=== PATIENT | male | born 1945 | race Two or more races ===

== ENCOUNTER 2023-04-22 11:48 | Outpatient (OUT) | payer MEDICARE, SELFPAY ==
--- NOTE | 2023-04-22 13:05 | P.CN_ITS ---
Consult Note: HPI Data of Consult Patient: new to practice Consult date: 04/22/23 Requesting Physician: Navdeep Porter MD Primary Care Provider: Obed Quijano MD Consult Narrative Reason for consult: right knee pain Narrative: 77yom who presents for evaluation. worsening right knee pain, has been ongoing for years. needs to have replaced, but is holding off until next summer. has had steroid injections in the past, with good relief >6 weeks. last injection was >3 months ago. continues in course of provider directed home exercises, with minimal relief. uses otc pain meds as needed. denies adverse med side effects. cc:: CC: Navdeep Porter MD Review of Systems ROS Status of ROS 10 or more systems reviewed and unremarkable except as noted in h istory and below Exam Narrative Exam Narrative: Psych-alert and oriented x 3.? Attentive and appropriate, constitutionally normal, displays normal mood and affect per situation.? There are no obvious deficits in memory, reasoning, or intellect. Extremities-lower extremities are warm with minimal edema and palpable pulses. Knee-examination of the right knee reveals tenderness to palpation over the superior, inferior, lateral, and medial aspect of the knee.? Some swelling is noted without erythema. Pain is elicited with flexion and extension of the knee both actively and passively.? Some grinding is noted with these motions.? There is no notable ligamental laxity or instability.? Coordination remains intact.? Gait remains antalgic. Assessment and Plan Assessment and Plan (1) Osteoarthritis of right knee: Plan 77yom who presents for evaluation. failed conservative measures, as noted. imaging consistent with right knee osteoarthritis. given previous relief and current symptoms, prudent to repeat right knee steroid injection. he is in agreement. medications reviewed, no changes. also discussed possible genicular nerve blocks. discussed that this would be a possibility if the steroid injection did not provide significant lasting relief. follow up in 3 months or sooner, if needed. Procedure: Right knee injection Medications: Bupivacaine 0.25% 4cc, kenalog 40mg I explained the details of the procedure to the patient including the risks, benefits and alternatives. We had an informed discussion and the patient verbalized understanding and signed the consent form. All questions were answered appropriately.? A time out was performed.? After obtaining a comfortable seated position, the right knee was prepped with alcohol x3. A syringe containing the above medication was attached to a 25 guage, 1.5 inch needle under strict aseptic technique. The lateral tibial plateau was palpated.? The needle was then advanced through the subcutaneous tissue in a medial and superior direction towards the joint space.? The contents of the syringe were gently injected without any resistance. The needle was removed and pressure was applied to the injection site to decrease the incidence of ecchymosis and hematoma formation.? A sterile bandage was applied.
== END 2023-04-22 11:49 | disposition home or self-care (01) ==
PROVIDERS: PCP Family Medicine; Visit Provider Anesthesiology
DX: M17.11 Unilateral primary osteoarthritis, right knee (principal)
CPT/HCPCS: 20610

== ENCOUNTER 2023-06-27 12:19 | Outpatient (OUT) | payer MEDICARE, SELFPAY ==
--- OUTSIDE RECORDS SUMMARY | 2023-06-27 12:23 | XMS_ITS | CCD ---
Author Name Unknown Address [facility] [facility] [address] [place] [address] Organization [facility] Care Team Providers [employer] Teacher Name Role Phone PHYSICIAN, DEFAULT Unavailable Unavailable PHYSICIAN, DEFAULT Unavailable Unavailable HOY, ROMEL Unavailable Unavailable [place], EHAB A Unavailable Unavailable [place], EHAB A Unavailable Unavailable HOY, ROMEL Unavailable Unavailable HOY, ROMEL Unavailable Unavailable DE Unavailable Unavailable [place], EHAB A Unavailable Unavailable HOTomas ., DR URENA Primary Care Unavailable WENDY WHITMAN Admitting Unavailable WENDY WHITMAN Attending Unavailable ZIEBER, DR DAMIR Thibodeaux Consulting Unavailable WENDY WHITMAN Consulting Unavailable HOTomas ., DR URENA Admitting Unavailable HOY ., DR URENA Attending Unavailable HOY ., DR URENA Primary Care Unavailable HOY ., DR URENA Consulting Unavailable [place], EHAB Attending Unavailable German MARTIN, Navdeep Dodd Attending Unavailable Allergies Allergy Classification Reported Allergen(s) Allergy Type Date of Onset Reaction(s) Facility (1 source) 06264,00; Translations: [66033,00] Propensity to adverse reactions (disorder) 9 [facility] Repository (2 sources) levoFLOXacin; Translations: [LEVOFLOXACIN] Drug Allergy 3 The [facility] Repository Problems Active Problems Problem Classification Problem Date Documented Date Episodic/Chronic Complication of device; implant or graft (1 source) Stenosis of coronary artery stent, initial encounter; Translations: [STENOSIS OF CORONARY ARTERY STENT, INITIAL ENCOUNTER] Onset: 03-05-2018 Coronary atherosclerosis and other heart disease (5 sources) Atherosclerotic heart disease of [place] coronary artery with unstable angina pectoris; Translations: [Old myocardial infarction] Onset: 03-05-2018 Chronic Coronary atherosclerosis and other heart disease (1 source) Presence of coronary angioplasty implant and graft; Translations: [PRESENCE OF CORONARY ANGIOPLASTY IMPLANT AND GRAFT] Onset: 03-05-2018 Episodic Diabetes mellitus without complication (2 sources) Type 2 diabetes mellitus without complications; Translations: [TYPE 2 DIABETES MELLITUS WITHOUT COMPLICATIONS] Onset: 03-05-2018 Chronic Disorders of lipid metabolism (5 sources) Hyperlipidemia, unspecified; Translations: [HYPERLIPIDEMIA, UNSPECIFIED] Onset: 03-05-2018 Chronic Essential hypertension (1 source) Essential (primary) hypertension; Translations: [ESSENTIAL (PRIMARY) HYPERTENSION] Onset: 03-05-2018 Chronic Malaise and fatigue (1 source) Other fatigue; Translations: [OTHER FATIGUE] Onset: 07-09-2022 Episodic Other aftercare (1 source) long-term (current) use of 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/antip latelets; Translations: [DETENTION (CURRENT) USE OF ANTITHROMBOTICS/ANTIP LATELETS] Onset: 03-05-2018 Episodic Other aftercare (1 source) long-term (current) use of aspirin; Translations: [JOINERS SUPERVISOR (CURRENT) USE OF ASPIRIN] Onset: 03-05-2018 Episodic Other aftercare (1 source) Other technician terminal and repeater (current) drug therapy; Translations: [OTH JOINERS SUPERVISOR CURRENT DRUG THERAPY] Onset: 07-09-2022 Episodic Other aftercare (1 source) long-term (current) use of oral hypoglycemic drugs; Translations: [DETENTION (CURRENT) USE OF ORAL HYPOGLYCEMIC DRUGS] Onset: 03-05-2018 Other lower respiratory disease (1 source) Shortness of breath; Translations: [SHORTNESS OF BREATH] Onset: 03-05-2018 Episodic Other screening for suspected conditions (not mental disorders or infectious disease) (2 sources) Encounter for screening for malignant neoplasm of prostate; Translations: [Encounter for screening for malignant neoplasm of colon] Onset: 07-09-2022 Episodic Residual codes; unclassified (1 source) Sleep apnea, unspecified; Translations: [SLEEP APNEA, UNSPECIFIED] Onset: 03-05-2018 Unclassified (2 sources) Unknown / UNK(Unknown) Onset: 03-05-2018 Unclassified (3 sources) LOW BACK PAIN, UNSPECIFIED; Translations: [LOW BACK PAIN, UNSPECIFIED] Onset: 01-15-2022 Past or Other Problems Problem Classification Problem Date Documented Da te Episodic/Chronic Unclassified (1 source) LOW BACK PAIN, UNSPECIFIED; Translations: [LOW BACK PAIN, UNSPECIFIED] Onset: 01-11-2022 Results Test Name Value Interpretation Reference Range Facility Office Visiton 01-07-2023 Follow-up visit [id number] Nabil Stauffer 1945 M Date Provider Department Center 01/07/2023 [place]IA, EHAB BH CARD [facility] No family history on file Level of Service:56542 DE OFFICE/OUTPATIENT ESTABLISHED LOW MDM 20-29 MIN Normal [facility] CBC AUTO DIFFon 07-04-2022 BASO # 0.1 103/ul Normal 0.0-0.1 [facility] Comment on above: Performed By: #### C BC #### [facility] [address] [place] [address] Dr. Cami Bishop Basophils/100 WBC (Bld) 0.9 % Normal 0.2-2.0 [facility] Comment on above: Performed By: #### C BC #### [facility] [address] [place] [address] Dr. Cami Bishop EO # 0.1 103/ul Normal 0.0-0.7 [facility] Comment on above: Performed By: #### C BC #### [facility] [address] [place] [address] Dr. Cami Bishop Eosinophils/100 WBC (Bld) 2.0 % Normal 0.9-7.0 [facility] Comment on above: Performed By: #### C BC #### [facility] [address] [place] [address] Dr. Cami Bishop Erythrocyte distribution width (RBC) [Ratio] 12.2 % Normal 11.0-15.0 [facility] Comment on above: Performed By: #### C BC #### [facility] [address] [place] [address] Dr. Cami Bishop Hematocrit (Bld) [Volume fraction] 45.3 % Normal 42.0-54.0 [facility] Comment on above: Performed By: #### C BC #### [facility] [address] [place] [address] Dr. Cami Bishop Hemoglobin (Bld) [Mass/Vol] 16.0 g/dL Normal 14.0-18.0 [facility] Comment on above: Performed By: #### C BC #### [facility] [address] [place] [address] Dr. Cami Bishop IG # 0.04 10e3/ul Critically high 0.00-0.03 [facility] Comment on above: Performed By: #### C BC #### [facility] [address] [address] [address] Cami Bishop IG % 0.7 % Critically high 0.0-0.5 [facility] Comment on above: Performed By: #### C BC #### [facility] [address] [place] [address] Dr. Cami Bishop LYMPH # 1.6 103/ul Normal 1.2-3.8 [facility] Comment on above: Performed By: #### C BC #### [facility] [address] [place] [address] Dr. Cami Bishop Lymphocytes/100 WBC (Bld) 28.6 % Normal 20.5-60.0 [facility] Comment on above: Performed By: #### C BC #### [facility] [address] [place] [address] Dr. Cami Bishop MANUAL DIFF REQ NO Normal [facility] Comment on above: Performed By: #### C BC #### [facility] [address] [place] [address] Dr. Cami Bishop MCH (RBC) [Entitic mass] 31.2 pg Normal 25.9-34.0 [facility] Comment on above: Performed By: #### C BC #### [facility] [address] [place] [address] Dr. Cami Bishop MCHC (RBC) [Mass/Vol] 35.3 g/dL Critically high 29.9-35.2 [facility] Comment on above: Performed By: #### C BC #### [facility] [address] [place] [address] Dr. Cami Bishop MCV (RBC) [Entitic vol] 88.3 fL Normal 80.0-94.0 [facility] Comment on above: Performed By: #### C BC #### [facility] [address] [place] [address] Dr. Cami Bishop MONO # 0.6 103/ul Normal 0.3-0.8 [facility] Comment on above: Performed By: #### C BC #### [facility] [address] [place] [address] Dr. Cami Bishop Monocytes/100 WBC (Bld) 11.2 % Normal 1.7-12.0 [facility] Comment on above: Performed By: #### C BC #### [facility] [address] [place] [address] Dr. Cami Bishop NEUT # 3.2 103/ul Normal 1.4-6.5 [facility] Comment on above: Performed By: #### C BC #### [facility] [address] [place] [address] Dr. Cami Bishop Neutrophils/100 WBC (Bld) 56.6 % Normal 43.0-75.0 [facility] Comment on above: Performed By: #### C BC #### [facility] [address] [place] [address] Dr. Cami Bishop Platelet mean volume (Bld) [Entitic vol] 9.6 fL Normal 9.5-13.5 [facility] Comment on above: Performed By: #### C BC #### [facility] [address] [place] [address] Dr. Cami Bishop PLT 229 103/ul Normal 150-450 [facility] Comment on above: Performed By: #### C BC #### [facility] [address] [place] [address] Dr. Cami Bishop RBC 5.13 106/ul Normal 4.70-6.10 [facility] Comment on above: Performed By: #### C BC #### [facility] [address] [place] [address] Dr. Cami Bishop WBC 5.6 103/ul Normal 4.0-11.0 [facility] Comment on above: Performed By: #### C BC #### [facility] [address] [address] [address] Cami Bishop FREE T3on 07-04-2022 FREE T3 2.50 pg/mlL Normal 2.18-3.98 [facility] Comment on above: Performed By: #### T SH, LIPID, FT3, T4, CMP #### [facility] [address] [address] [address] Cami Bishop GLYCOHEMOGLOBIN A1Con 2022 ADA RECOMMENDATION SEE BELOW Normal [facility] Comment on above: Result Comment: ADA RECOMMENDED LIMIT 4.0 - 6.0 ADA THERAPEUTIC TARGET < 7.0 ACTION SUGGESTED > 7.0 Performed By: #### A 1C #### [facility] [address] [place] [address] Dr. Cami iBshop Glucose [Mass/Vol] 105 mg/dL Normal [facility] Comment on above: Performed By: #### A 1C #### [facility] [address] [address] [address] Cami Bishop HbA1c (Bld) [Mass fraction] 5.3 % Normal 4.5-6.2 [facility] Comment on above: Performed By: #### A 1C #### [facility] [address] [place] [address] Dr. Cami Bishop LIPID PROFILEon 07-04-2022 CHOL-HDL RATIO NORM SEE BELOW Normal [facility] Comment on above: Result Comment: 3.3 - 4.4 LOW RISK 4.4 - 7.1 AVERAGE RISK 7.1 - 11.0 MODERATE RISK >11.0 HIGH RISK Performed By: #### T SH, LIPID, FT3, T4, CMP #### [facility] [address] [address] [address] Cami Bishop Cholesterol [Mass/Vol] 123 mg/dL Normal <=200 [facility] Comment on above: Performed By: #### T SH, LIPID, FT3, T4, CMP #### [facility] [address] [address] [address] Cami Bishop Cholesterol in HDL [Mass/Vol] 39 mg/dL Critically low 40-60 [facility] Comment on above: Performed By: #### T SH, LIPID, FT3, T4, CMP #### [facility] [address] [place] [address] Dr. Cami Bishop Cholesterol in LDL [Mass/Vol] 55.6 mg/dL Normal [facility] Comment on above: Performed By: #### T SH, LIPID, FT3, T4, CMP #### [facility] [address] [place] [address] Dr. Cami Bishop Cholesterol.total/Ch olesterol in HDL [Mass ratio] 3.2 {ratio} Normal [facility] Comment on above: Performed By: #### T SH, LIPID, FT3, T4, CMP #### [facility] [address] [place] [address] Dr. Cami Bishop HDL NORMAL > or = 60 mg/dl - LO W CARDIOVASCULAR RISK <40 mg/dl - HIGH CARDIOVASCULAR RISK Normal [facility] Comment on above: Performed By: #### T SH, LIPID, FT3, T4, CMP #### [facility] [address] [place] [address] Dr. Cami Bishop LDL CALC NORMAL SEE BELOW Normal [facility] Comment on above: Result Comment: <100 mg/dl OPTIMAL 100 - 129 mg/dl NEAR OR ABOVE OPTIMAL 130 - 159 mg/dl BORDERLINE HIGH 160 - 189 mg/dl HIGH >190 mg/dl VERY HIGH Performed By: #### T SH, LIPID, FT3, T4, CMP #### [facility] [address] [place] [address] Dr. Cami Bishop Triglyceride [Mass/Vol] 142 mg/dL Normal <=150 [facility] Comment on above: Performed By: #### T SH, LIPID, FT3, T4, CMP #### [facility] [address] [place] [address] Dr. Cami Bishop VLDL CALC 28.4 mg/dL Normal [facility] Comment on above: Performed By: #### T SH, LIPID, FT3, T4, CMP #### [facility] [address] [place] [address] Dr. Cami Bishop PROF 14(COMP METB)on 023 Albumin [Mass/Vol] 3.8 g/dL Normal 3.4-5.0 [facility] Comment on above: Performed By: #### T SH, LIPID, FT3, T4, CMP #### [facility] [address] [address] [address] Cami Bishop Albumin/Globulin [Mass ratio] 1.3 {ratio} Normal [facility] Comment on above: Performed By: #### T SH, LIPID, FT3, T4, CMP #### [facility] [address] [address] [address] Cami Bishop ALP [Catalytic activity/Vol] 44 U/L Critically low 46-116 [facility] Comment on above: Performed By: #### T SH, LIPID, FT3, T4, CMP #### [facility] [address] [place] [address] Dr. Cami Bishop ALT [Catalytic activity/Vol] 36 U/L Normal 16-63 [facility] Comment on above: Performed By: #### T SH, LIPID, FT3, T4, CMP #### [facility] [address] [address] [address] Cami Bishop Anion gap [Moles/Vol] 9.3 mmol/L Normal [facility] Comment on above: Performed By: #### T SH, LIPID, FT3, T4, CMP #### [facility] [address] [place] [address] Dr. Cami Bishop AST [Catalytic activity/Vol] 22 U/L Normal 15-37 [facility] Comment on above: Performed By: #### T SH, LIPID, FT3, T4, CMP #### [facility] [address] [address] [address] Cami Bishop Bilirubin [Mass/Vol] 1.4 mg/dL Critically high 0.2-1.0 [facility] Comment on above: Performed By: #### T SH, LIPID, FT3, T4, CMP #### [facility] [address] [place] [address] Dr. Cami Bishop Calcium [Mass/Vol] 8.9 mg/dL Normal 8.5-10.1 [facility] Comment on above: Performed By: #### T SH, LIPID, FT3, T4, CMP #### [facility] [address] [address] [address] Cami Bishop Chloride [Moles/Vol] 98 mmol/L Normal 98-107 [facility] Comment on above: Performed By: #### T SH, LIPID, FT3, T4, CMP #### [facility] [address] [address] [address] Cami Bishop CO2 [Moles/Vol] 32.7 mmol/L Critically high 21.0-32.0 [facility] Comment on above: Performed By: #### T SH, LIPID, FT3, T4, CMP #### [facility] [address] [place] [address] Dr. Cami Bishop Creatinine [Mass/Vol] 0.95 mg/dL Normal 0.70-1.30 [facility] Comment on above: Performed By: #### T SH, LIPID, FT3, T4, CMP #### [facility] [address] [place] [address] Dr. Cami Bishop EGFR-AF ESTONIAN >60 Normal >=60 [facility] Comment on above: Performed By: #### T SH, LIPID, FT3, T4, CMP #### [facility] [address] [place] [address] Dr. Cami Bishop EGFR-NON AF ESTONIAN >60 Normal >=60 [facility] Comment on above: Performed By: #### T SH, LIPID, FT3, T4, CMP #### [facility] [address] [address] [address] Cami Bishop Globulin (S) [Mass/Vol] 2.9 g/dL Normal [facility] Comment on above: Performed By: #### T SH, LIPID, FT3, T4, CMP #### [facility] [address] [address] [address] Cami Bishop Glucose [Mass/Vol] 102 mg/dL Normal 74-106 [facility] Comment on above: Performed By: #### T SH, LIPID, FT3, T4, CMP #### [facility] [address] [place] [address] Dr. Cami Bishop Potassium [Moles/Vol] 4.0 mmol/L Normal 3.5-5.1 [facility] Comment on above: Performed By: #### T SH, LIPID, FT3, T4, CMP #### [facility] [address] [place] [address] Dr. Cami Bishop Protein [Mass/Vol] 6.7 g/dL Normal 6.4-8.2 [facility] Comment on above: Performed By: #### T SH, LIPID, FT3, T4, CMP #### [facility] [address] [place] [address] Dr. Cami Bishop Sodium [Moles/Vol] 136 mmol/L Normal 136-145 [facility] Comment on above: Performed By: #### T SH, LIPID, FT3, T4, CMP #### [facility] [address] [place] [address] Dr. Cami Bishop Urea nitrogen [Mass/Vol] 14.0 mg/dL Normal 7.0-18.0 [facility] Comment on above: Performed By: #### T SH, LIPID, FT3, T4, CMP #### [facility] [address] [place] [address] Dr. Cami Bishop Urea nitrogen/Creatinine [Mass ratio] 14.7 mg/mg Normal [facility] Comment on above: Performed By: #### T SH, LIPID, FT3, T4, CMP #### [facility] [address] [place] [address] Dr. Cami Bishop T4on 07-04-2022 T4 [Mass/Vol] 6.80 ug/dL Normal 4.50-12.10 [facility] Comment on above: Performed By: #### T SH, LIPID, FT3, T4, CMP #### [facility] [address] [place] [address] Dr. Cami Bishop TSHon 07-04-2022 TSH 2.193 uIU/mL Normal 0.358-3.740 [facility] Comment on above: Performed By: #### T SH, LIPID, FT3, T4, CMP #### [facility] [address] [place] [address] Dr. Cami Bishop VITAMIN D 25 OHon 07-04-2022 VIT D 25-OH 35.1 ng/mL Normal [facility] Comment on above: Performed By: #### V ROSELINE, PSASC #### [facility] [address] [place] [address] Dr. Cami Bishop VIT D RANGES SEE BELOW Normal [facility] Comment on above: Result Comment: <20 ng/mL Vit D deficient 20 - <30 ng/mL Vit D insufficient 30 - 100 ng/mL Vit D sufficient >100 ng/mL Potential Toxicity Performed By: #### V ROSELINE, PSASC #### [facility] [address] [place] [address] Dr. Cami Bishop ER URINE PROFILEon 2 Bilirubin Ql (U) Negative Normal NEGATIVE [facility] Comment on above: Performed By: #### T SH, LIPID, FT3, T4, CMP #### [facility] [address] [place] [address] Dr. Cami Bishop Clarity (U) CLEAR Normal CLEAR [facility] Comment on above: Performed By: #### T SH, LIPID, FT3, T4, CMP #### [facility] [address] [place] [address] Dr. Cami Bishop Color (U) YELLOW Normal YELLOW [facility] Comment on above: Performed By: #### T SH, LIPID, FT3, T4, CMP #### [facility] [address] [place] [address] Dr. Cami Bishop ERUAHD A micrscopic examination will be performed if indicated. Normal [facility] Comment on above: Performed By: #### T SH, LIPID, FT3, T4, CMP #### [facility] [address] [place] [address] Dr. Cami Bishop Glucose Ql (U) Negative Normal NEGATIVE [facility] Comment on above: Performed By: #### T SH, LIPID, FT3, T4, CMP #### [facility] [address] [address] [address] Cami Bishop Hemoglobin Ql (U) Negative Normal NEGATIVE [facility] Comment on above: Performed By: #### T SH, LIPID, FT3, T4, CMP #### [facility] [address] [address] [address] Cami Bishop Ketones Ql (U) Negative Normal NEGATIVE [facility] Comment on above: Performed By: #### T SH, LIPID, FT3, T4, CMP #### [facility] [address] [address] [address] Cami Bishop LEUKOCYTES Negative Normal NEGATIVE [facility] Comment on above: Performed By: #### T SH, LIPID, FT3, T4, CMP #### [facility] [address] [address] [address] Cami Bishop Nitrite Ql (U) Negative Normal NEGATIVE [facility] Comment on above: Performed By: #### T SH, LIPID, FT3, T4, CMP #### [facility] [address] [address] [address] Cami Bishop pH (U) 6.0 [pH] Normal 5-9 [facility] Comment on above: Performed By: #### T SH, LIPID, FT3, T4, CMP #### [facility] [address] [address] [address] Cami Bishop SPEC GRAVITY 1.020 Normal 1.005-<=1.025 [facility] Comment on above: Performed By: #### T SH, LIPID, FT3, T4, CMP #### [facility] [address] [address] [address] Cami Bishop UA PROTEIN Negative Normal NEGATIVE/ TRACE [facility] Comment on above: Performed By: #### T SH, LIPID, FT3, T4, CMP #### [facility] [address] [address] [address] Cami Bishop UR MICRO IND NOT INDICATED Normal [facility] Comment on above: Performed By: #### T SH, LIPID, FT3, T4, CMP #### [facility] [address] [place], [place] [address] Dr. Cami Bishop Urobilinogen Qn (U) 1.0 {Dia'U}/dL Normal 0.2 - 1. 0 [facility] Comment on above: Performed By: #### T SH, LIPID, FT3, T4, CMP #### [facility] [address] [place], [place] [address] Dr. Cami Bishop XR LSPINE 2_3 VIEWSon 2021 XR LSPINE 2_3 VIEWS EXAMINATION: XR LSPI NE 2_3 VIEWS HISTORY: Pain ; acute lumbar pain; no known injury COMPARISON: No relevant comparison available. FINDINGS: BONES: Mild degenerative facet arthropathy L4-L5, L5-S1. No fracture or spondylolisthesis. DISC SPACES: Mild narrowing L4-L5, L5-S1. PARASPINOUS: Negative. No paraspinous abnormality is seen. OTHER: Negative. IMPRESSION: 1. No appreciable acute abnormality. 2. Mild degenerative disc disease and facet arthropathy of the lower lumbar spine. Electronically authenticated by: DAMIR MACHADO Date: 2022-01-11 13:56 Normal [facility] Consent for COVID Vaccineon 08-06-2020 SARS-CoV-2 (COVID-19) RNA LIN+probe Ql (Unsp spec) [id number]. 00CD:127 Normal [facility] [place] Consent for COVID Vaccineon 07-01-2020 SARS-CoV-2 (COVID-19) RNA LIN+probe Ql (Unsp spec) [id number]. 00CD:127 Normal [facility] [place] Consent for Treatmenton 06-20 Consent for Treatment [id number]. 00CD:127 Normal [facility] [place] Coding Summary.on 06-29-2020 Coding Summary. CODING DATE: 06/29/2020 FINAL [facility] STATUS: PAYOR: Medicare APC DESCRIPTION [employer] - Level 1B ($11-$20) ADMIT DX: REASON FOR VISIT DX: Z23 Encounter for immunization FINAL DX: PRINCIPAL: Z23 Encounter for immunization SECONDARY: PYMT PROC APC STAT DESCRIPTION DOCTOR NAME DATE NOTE: The code number assigned matches the documented diagnosis and / or procedure in the patient's chart. However, the narrative phrase printed from the coding software may appear abbreviated, or result in slightly different terminology. Coded By: Myriam Manuel CphT Date Saved: 06/29/2020 11:45 am Normal [facility] [place] Ambulatory Clinical Summaryo n 01-26-2020 Ambulatory Clinical Summary {[id number] Normal [facility] [place] Ambulatory Clinical Summaryo n 12-16-2019 Ambulatory Clinical Summary {[id number]}CD:[id number] Normal [facility] [place] General Surgery Office/Clini c Noteon 12-16-2019 General Surgery Office/Clinic Note Chief Complaint post operative follow up HPI Staff 14 day post operative follow up post excisional biopsy from left occipital scalp completed at [facility] on 12/03. Denies pain; no use of pain medication. Minimal tenderness if area is brushed. Denies drainage/bleeding. History of Present Illness 2 weeks s/p excision of lipoma left occipital scalp, doing well; some itching, no pain or drainage; pathology consistent with lipoma. Review of Systems ROS - Provider Constitutional: no fever, no sweats, no weight loss. Eyes: no glasses, no blurred vision, no visual loss. ENMT: no dentures, no hoarseness, no swallowing difficulties, no hearing loss, no ear infection(s), no nose bleeds. Cardiovascular: normal blood pressure, no chest pain, regular heartbeat, no heart murmur. Respiratory: no shortness of breath, no cough, no asthma, no wheezing. Gastrointestinal: no nausea, no vomiting, no diarrhea, no constipation, no blood in stool, no change in bowel habits, no abdominal pain, no hepatitis. Genitourinary: no kidney stones, no urine infection, no dysuria. Musculoskeletal: no pain, no weakness. Skin: no changing moles, no rash, yes skin lumps. Neurologic: no seizures, no epilepsy, no headache. Psychiatric: no emotional or psychiatric problem. Heme/Lymph: no bleeding problems, no anemia, no blood clots, no transfusions. Allergy/Immunologic: no swollen lymph nodes/glands, no IV drug abuse. Other: Additional ROS info: Except as noted in the above Review of Systems and in the History of Present Illness, all other systems have been reviewed and are negative or noncontributory. Physical Exam Vitals & Measurements T: 36.7 ?C (Tympanic) skin: incision healing well, minimal irritation around sutures and swelling; no drainage. Assessment/Plan 1. Lipoma of scalp (D17.0: Benign lipomatous neoplasm of skin and subcutaneous tissue of head, face and neck) sutures removed, follow up as needed; call with problems/questions. 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 Medications amLODIPine 5 mg Tab, 5 mg= 1 tab(s), Oral, Daily aspirin 81 mg Chew Tab, 81 mg= 1 tab(s), Chewed, Daily Cialis, 20 mg, Oral, Daily Fish Oil, 1000 mg, Oral, Daily hydrochlorothiazide 12.5 mg Cap, 12.5 mg= 1 cap(s), Oral, Daily lisinopril 40 mg Tab, 40 mg= 1 tab(s), Oral, Daily metformin 500 mg oral tablet, 500 mg= 1 tab(s), Oral, BID Metoprolol tartrate 25 mg Tab, 25 mg= 1 tab(s), Oral, BID Multiple Vitamins Tab, 1 tab(s), Oral, Daily niacin, 50 mg, Oral, Daily Plavix 75 mg Tab, 75 mg= 1 tab(s), Oral, Daily simvastatin 40 mg Tab, 40 mg= 1 tab(s), Oral, Once a day (at bedtime) Allergies No Known Allergies Social History Alcohol - Low Risk, 05/10/2013 Current, Wine, 3-5 times per week, 11/10/2019 Current, Beer, Wine, Liquor, 1-2 times per month, 05/10/2013 Substance Abuse - Denies Substance Abuse, 10/26/2014 Tobacco - Denies Tobacco Use, 05/10/2013 Never (less than 100 in lifetime) Tobacco Use:., 12/16/2019 Family History Acute myocardial infarction: Mother. Diabetes mellitus type 2: Mother. Heart failure: Father. Immunizations Vaccine Date Status diphtheria/pertussis, acel/tetanus adult 10/26/2014 Given Normal [facility] Comment on above: Result Comment: Elec tronically Signed By: CRISTINA MARTIN, Joseph Ledesma\Date and Time Signed: 12/16/19 13:32 EDT Operative Reporton 0 Operative Report [id number]#1.0 0CD:127 [facility] Pathology Noteon 12-08-2019 Pathology Note [id number]#1.0 0CD:127 [facility] Facesheeton 11-13-2019 Facesheet [id number] 0CD:127 [facility] Physician Referralon 020 Physician Referral [id number] CD:127 [facility] Cardiovascular Lab Reporton 03-06-2018 Cardiovascular Lab Report [facility] Patient Name: Eh [facility] García MR #: [id number] of Physician: Sheryl Stratton M.D.Division of Service Date: 03/05/2018Cardiology Birthdate: [birth year]Adult Cardiovascular Room #: 3CD [id number] [facility] [place], [place] [address]Zmueo Fax Cardiovascular Laboratory ReportFINAL IMPRESSIONS:1. Severe stenosis of the left anterior descending coronary artery, successfully treated by balloon angioplasty and Synergy drug-eluting stent placement.2. Severe stenosis of the posterior descending artery, successfully treated by balloon angioplasty and Synergy drug-eluting stent placement.3. Moderate angiographic, non-hemodynamically significant stenosis of the right coronary artery as assessed by instantaneous wave-free ratio (iFR).4. Spes-mw-wauldydf in-stent restenosis of the mid left anterior descending and circumflex coronary arteries.5. Severe disease of a small caliber first obtuse marginal branch.6. Mildly elevated right-sided heart pressures and wedge pressures.7. Normal cardiac output/cardiac index.RECOMMENDATIONS/ PLAN:1. Aspirin 81 mg lifelong.2. Plavix 75 mg daily for a minimum of 6 months.3. Optimization of medical management; a beta-yazmin, high-intensity statin and an angiotensin-converting enzyme inhibitor are indicated.4. Outpatient phase to cardiac rehabilitation.5. Follow up with me in the [facility] in the next 2 to 4 weeks.6. Follow up with Dr. Quijano as scheduled.PROCEDURES: Ultrasound-guided access to the right internal jugular vein,right heart catheterization, ultrasound-guided access to the left radialartery, bilateral selective coronary angiography, percutaneous balloonangioplasty, and Synergy drug-eluting stent placement in the left anteriordescending coronary artery, percutaneous balloon angioplasty, anddrug-eluting stent placement in the posterior descending branch of theright coronary artery, instantaneous fractional ratio of the right coronaryartery.METHODS : After risks, benefits, and alternatives were explained, writteninformed consent was obtained. The patient was prepped and draped in usualsterile fashion over the right neck and left wrist. Using 1% lidocainesolution, local infiltration, anesthesia was achieved over the right neck.Using a modified Seldinger technique and after local infiltration ofanesthesia, access to the right internal jugular vein was obtainedutilizing the micropuncture kit under ultrasound guidance. A #6-FrenchGlidesheath was inserted without difficulty.Right heart catheterization was performed using a Alexander catheter via thevenous sheath. Pressures were measured in the right atrium, rightventricle, pulmonary artery, and pulmonary capillary wedge positions.Oxygen saturations were obtained and cardiac output/cardiac index wascalculated using the Drew principle. After reviewing the data, it waselected to conclude this portion of the procedure. The Alexander catheter wasremoved. The jugular sheath was removed with application of pressurebandage per protocol to achieve optimal hemostasis.Subsequentl y, coronary angiography was performed via a left radialapproach; local infiltration anesthesia was achieved over the left radialartery. A micropuncture kit was used to access the left radial arteryunder ultrasound guidance. A 6-[place] Glidesheath was inserted withoutdifficulty. Coronary angiography was performed using JR4 and HW1wdcdunash. After reviewing the images, it was elected to proceed with aninterventional procedure.A 6-[place] XB3.5 guide catheter was advanced over J-wire and coaxiallyengaged into the left main coronary ostium. The [place] pressure wire wasadvanced through the catheter with pressures normalized just distal to theexiting. The wire was used to traverse the suspect stenosis in the leftanterior descending. At this juncture, malfunction of the functional flowwire was noted; it was elected to proceed with intervention given theangiographic severity of the stenosis. Balloon angioplasty was performedusing a 2.0 x 8-mm noncompliant balloon. An inadequate result was treatedusing a 2.5 x 16-mm Synergy drug-eluting stent. Postdilation was performedusing a 3.0 x 12-mm noncompliant balloon. Repeat imaging showed an optimalresult. The wire was removed. Final images showed CELSO-3 flow with nodissection, thrombus, or distal wire trauma. The XB guide catheter wasremoved.A 6-[place] JR4 guide catheter was advanced over the J-wire and coaxiallyengaged into the right coronary ostium. A new [place] pressure wire wasadvanced through the catheter with pressures normalized just after exiting.The wire was used to traverse the suspect stenoses. An instantaneouswave-free ratio (iFR) was performed as well as a manual pullback iFR. Thisidentified a significant step-up just proximal to the posterior descendingartery. The wire was readvanced across the posterior descending stenosis.Balloon angioplasty was performed using a 2.0 x 8-mm balloon. Aninadequate result was treated using a 2.5 x 12-mm Synergy stent withpostdilation using a 3.0 x 8-mm noncompliant balloon. The wire wassubsequently retracted just distal to the stenosis at the crux. An iFR wasremeasured. The wire was removed. Final angiography showed CELSO-3 flowwith no dissection, thrombus, or distal wire trauma.At this point, it was elected to conclude the procedure.All catheters were removed. The radial sheath was removed with applicationof pressure bandage per protocol to achieve optimal hemostasis. Overall,the patient tolerated the procedure well. There were no overtcomplications. He was to be transferred to the holding area in stablecondition.FINDIN GS:Hemodynamics:RA 13.RV 36/9, 15.PA 36/13 (25).PCWP 15.TPG 10.AO 107/63.Cardiac output 6.11/cardiac index 2.42.LEFT VENTRICULOGRAPHY: This was not performed.CORONARY ARTERIES: Left main coronary artery. This arises from the leftcoronary cusp. It bifurcates into the left anterior descending and leftcircumflex coronary artery. It is free of significant stenosis.Left anterior descending coronary artery. This shows a previously placedbare-metal stent in the proximal to midportion of the vessel with 40%in-stent restenosis. Distal to a small adjacent diagonal, muyysz-mn-eeosjq left anterior descending shows a short segment 80% stenosis.This was reduced to 0% by balloon angioplasty and placement of a 2.5 x16-mm Synergy stent with postdilation as described above. Final imagesshowed CELSO-3 flow with no dissection, thrombus, or distal wire trauma.Left circumflex coronary artery. This shows a 30% in-stent restenosis inthe midportion of the vessel. A small first obtuse marginal shows an 80%ostial stenosis.Right coronary artery. This is a dominant vessel giving rise to theposterior descending and posterolateral branches. There was a 30% calcificstenosis in the proximal to midportion of the vessel. The crux shows a 50%to 60% bifurcation stenosis involving the distal right coronary and at theostium of the posterior descending as well as adjacent posterolateralbranch, this was left untreated. Instantaneous fractional ratio is 0.94across this stenosis after revascularization of the posterior descendingartery. The posterior descending shows an 80% mid-vessel stenosis atbaseline. This was reduced to 0% by balloon angioplasty and placement of a2.5 x 12-mm Synergy stent with postdilation as described above. Finalimages showed CELSO-3 flow with no dissection, thrombus, or distal wiretrauma.INDICATIONS : Unstable angina.Electronically Signed by:Moraima Ruelas M.D. 03/12/2018 03:07 P Moraima Ruelas M.D.Date Dict: 03/05/2018/01:31 P/Moraima Ruelas M.D.Date Trans: 03/06/2018 12:18 P/[id number]: Romel Quijano M.D. [place] [id number] [facility] [address] [facility] Encounters Encounter Date Encounter Type Care Provider Facility Start: 04-22-2023 End: 04-23-2023 ambulatory Navdeep Porter MD Facility: [facility] Start: 01-07-2023 End: 01-07-2023 ambulatory MORAIMA RUELAS [facility] Start: 07-04-2022 End: 07-05-[address] ROMEL QUIJANO . Facility: Start: 01-11-2022 End: 01-11-[address] ROMEL QUIJANO . Facility: Start: 04-07-2018 End: 04-08-2018 Patient encounter procedure DEFAULT PHYSICIAN Facility:[facility] Start: 03-05-2018 End: 03-06-2018 Patient encounter procedure MORAIMA RUELAS Facility:[facility] Procedures Date Procedure Procedure Detail Performing Clinician Start: 07-04-[address] DESIRAE QUIJANO . Comment on above: Performed By: #### V ITAD, PSASC #### [facility] [address] [place] [address] Dr. Cami Bishop Start: 03-05-2018 R HRT CORONARY ARTERY ANGIO MORAIMA RUELAS Payers Date Payer Category Payer Medicare 1958 Private Health Insurance [id number] 1945 Unknown [id number] [id number] 1945 Unknown [id number] 2.16.8 [id number] 1945 Unknown [id number] 2.16.84 [id number] 1945 Unknown [id number] 2.16.84 [id number] 1945 Unknown [id number] [id number]. [id number] Unknown Progress note 01-07-2023 Note Date & Type Note Facility 01-07-2023 Note [facility] Cardiology Clinic Note Chief Complaint: Patient here for 1 year follow up CAD, NSVT, hypertension, and hyperlipidemia. Denies chest pain and LE edema. VO remains unchanged. No recent testing. HPI: Nabil Stauffer is a 77 y.o. male With history of coronary artery disease, prior PCI/stent placement here in routine follow-up Has been doing relatively well from a heart standpoint. Continues to have exertional shortness of breath no worse than usual. Unfortunately, has been under tremendous stress. His is critically ill and in the intensive care unit in [facility]. She had a bowel perforation with peritonitis. She required surgery. She is being placed on dialysis today. Cardiology ROS: Review of Systems Cardiovascular: Positive for dyspnea on exertion. Musculoskeletal: Positive for arthritis and joint pain. All other systems reviewed and are negative. Past Medical History He has a past medical history of Hyperlipidemia, Hypertension, Myocardial infarction (CMS/HCC), and Sleep apnea. Surgical History He has no past surgical history on file. Social History He has no history on file for tobacco use, alcohol use, and drug use. Family History No family history on file. Allergies Levofloxacin Medications Current Outpatient Medications: amLODIPine (Norvasc) 2.5 mg tablet, Take 1 tablet (2.5 mg) by mouth in the morning and at bedtime., Disp: 180 tablet, Rfl: 3 aspirin 81 mg chewable tablet, Chew 1 tablet every day by oral route., Disp: , Rfl: clopidogrel (Plavix) 75 mg tablet, Take 1 tablet (75 mg) by mouth in the morning., Disp: 90 tablet, Rfl: 3 hydroCHLOROthiazide (Microzide) 12.5 mg capsule, Take 12.5 mg by mouth in the morning., Disp: , Rfl: lisinopril 40 mg tablet, Take 1 tablet by mouth in the morning., Disp: , Rfl: metFORMIN (Glucophage) 500 mg tablet, Take 500 mg by mouth in the morning and at bedtime., Disp: , Rfl: metoprolol tartrate (Lopressor) 25 mg tablet, Take 1 tablet by mouth in the morning and at bedtime., Disp: , Rfl: simvastatin (Zocor) 40 mg tablet, Take 1 tablet by mouth in the morning., Disp: , Rfl: Last Recorded Vitals BP 128/82 (BP Location: Left arm, Patient Position: Sitting) Pulse 83 Ht 1.803 m (5' 11 ) Wt 134 kg (295 lb) SpO2 97% BMI 41.14 kg/m??? Physical Examination: GENERAL: alert and oriented x3, well developed, in no acute distress. HEAD: atraumatic, normocephalic. EYES: BEVERLY, EOMI. NECK: trachea midline, no JVD present, no carotid bruits present. CARDIAC: S1, S2 present. RRR. No murmur, rubs, or gallops. RESPIRATORY: CTAB, no increased effort of breathing, no rales, rhonchi, or wheezing. ABDOMEN: soft, nontender, nondistended. EXTREMITIES: no lower extremity edema, peripheral pulses are 2+ bilaterally. No rash/skin discoloration present. NEURO: strength/sensation equal and symmetric in bilateral upper and lower extremities. PSYCH: appropriate mood, affect, and judgement. Investigations: Physician: Moraima Ruelas, Cardiovascular Laboratory Report FINAL IMPRESSIONS: 1. Severe stenosis of the left anterior descending coronary artery, successfully treated by balloon angioplasty and Synergy drug-eluting stent placement. 2. Severe stenosis of the posterior descending artery, successfully treated by balloon angioplasty and Synergy drug-eluting stent placement. 3. Moderate angiographic, non-hemodynamically significant stenosis of the right coronary artery as assessed by instantaneous wave-free ratio (iFR). 4. Lndd-ba-rfphflde in-stent restenosis of the mid left anterior descending and circumflex coronary arteries. 5. Severe disease of a small caliber first obtuse marginal branch. 6. Mildly elevated right-sided heart pressures and wedge pressures. 7. Normal cardiac output/cardiac index. RECOMMENDATIONS/PLAN: 1. Aspirin 81 mg lifelong. 2. Plavix 75 mg daily for a minimum of 6 months. 3. Optimization of medical management; a beta-yazmin, high-intensity statin and an angiotensin-converting enzyme inhibitor are indicated. 4. Outpatient phase to cardiac rehabilitation. 5. Follow up with me in the [facility] in the next 2 to 4 weeks. 6. Follow up with Dr. Quijano as scheduled. PROCEDURES: Ultrasound-guided access to the right internal jugular vein, right heart catheterization, ultrasound-guided access to the left radial artery, bilateral selective coronary angiography, percutaneous balloon angioplasty, and Synergy drug-eluting stent placement in the left anterior descending coronary artery, percutaneous balloon angioplasty, and drug-eluting stent placement in the posterior descending branch of the right coronary artery, instantaneous fractional ratio of the right coronary artery. Lexiscan stress test 09/05/2020: Impression: 1. No ischemic EKG changes seen on Lexiscan infusion 2. Ventricular ectopy seen. 3. Nuclear images are to be read, interpreted and reported i (more content not included)... [facility] Summary Purpose Family History No Family History Records FoundNo Family History Records FoundNo Family History Records FoundNo Family History Records FoundNo Family History Records Found Advance Directives No Advanced Directives Records FoundNo Advanced Directives Records FoundNo Advanced Directives Records FoundNo Advanced Directives Records FoundNo Advanced Directives Records Found Additional Source Comments (unrecognized sect ion and content) No Status Records FoundNo Status Records FoundNo Status Records FoundNo Status Records FoundNo Status Records Found INFORMATION SOURCE (unrecogn ized section and content) DATE CREATED AUTHOR 04/28/2018 [facility] DATE CREATED AUTHOR AUTHOR'S ORGANIZ ATION 10/26/[address] [facility] DATE CREATED AUTHOR AUTHOR'S ORGANIZ ATION 07/09/2022 [facility] DATE CREATED AUTHOR AUTHOR'S ORGANIZ ATION 01/07/2023 [facility] DATE CREATED AUTHOR AUTHOR'S ORGANIZ ATION 05/03/2023 [facility] FOR RECORDS PERTAINING TO PATIENTS WHO ARE OR HAVE BEEN ENROLLED IN A CHEMICAL DEPENDENCY/SUBSTANCEABUSE PROGRAM, SOME INFORMATION MAY BE OMITTED. This clinical summary was aggregated from multiple sources. Caution should be exercised in using it in the provision of clinical care. This summary normalizes information from multiple sources, and as a consequence, information in this document may materially change the coding, format and clinical context of patient data. In addition, data may be omitted in some cases. CLINICAL DECISIONS SHOULD BE BASED ON THE PRIMARY CLINICAL RECORDS. [employer] [facility]. provides no warranty or guarantee of the accuracy or completeness of information in this document.
--- NOTE | 2023-06-27 12:47 | P.CN_ITS ---
Consult Note: HPI Data of Consult Patient: known to practice within the last 3 years Consult date: 04/22/23 Requesting Physician: Baylee Higgins NP Primary Care Provider: Obed Quijano MD Consult Narrative Reason for consult: right knee pain Narrative: 77yom who presents for evaluation. worsening right knee pain, has been ongoing for years. needs to have replaced, but is holding off until next summer. has had steroid injections in the past, with good relief >6 weeks. continues in course of provider directed home exercises, with minimal relief. uses otc pain meds as needed. denies adverse med side effects. Patient found mild short term benefit from last injnection with Dr Porter but was only beneficial for 1 month. Patient would like to discuss genicular nerve block working towards thermal RFA. cc:: CC: Baylee Higgins NP Review of Systems ROS Status of ROS 10 or more systems reviewed and unremark able except as noted in history and below Musculoskeletal Reports: joint pain Meds Home Medications and Allergies Home Medications Medication Instructions Recorded Confirmed Type amlodipine 5 mg tablet 5 mg PO BID 04/30/23 04/30/23 History aspirin 81 mg tablet,delayed 81 mg PO DAILY 04/30/23 04/30/23 History release (Adult Low Dose Aspirin) clopidogrel 75 mg tablet (Plavix) 75 mg PO DAILY 04/30/23 04/30/23 History hydrochlorothiazide 12.5 mg tablet 12.5 mg PO DAILY 04/30/23 04/30/23 History lisinopril 40 mg tablet 40 mg PO DAILY 04/30/23 04/30/23 History metformin 500 mg tablet 500 mg PO BID 04/30/23 04/30/23 History metoprolol succinate 25 mg 12.5 mg PO BID 04/30/23 04/30/23 History tablet,extended release 24 hr multivitamin 1 tab PO DAILY 04/30/23 04/30/23 History niacin 50 mg tablet 50 mg PO DAILY 04/30/23 04/30/23 History omega-3 fatty acids 500 mg capsule 1,500 mg PO DAILY 04/30/23 04/30/23 History simvastatin 40 mg tablet 40 mg PO DAILY 04/30/23 04/30/23 History Allergies Allergy/AdvReac Type Severity Reaction Status Date / Time levofloxacin Allergy Unknown Verified 04/30/23 10:54 Exam Narrative Exam Narrative: Psych-alert and oriented x 3.? Attentive and appropriate, constitutionally normal, displays normal mood and affect per situation.? There are no obvious deficits in memory, reasoning, or intellect. Extremities-lower extremities are warm with minimal edema and palpable pulses. Knee-examination of the right knee reveals tenderness to palpation over the superior, inferior, lateral, and medial aspect of the knee.? Some swelling is noted without erythema. Pain is elicited with flexion and extension of the knee both actively and passively.? Some grinding is noted with these motions.? There is no notable ligamental laxity or instability.? Coordination remains intact.? Gait remains antalgic. Constitutional Documenting provider has reviewed patient's vital signs: yes Common normals: no apparent distress, oriented x3, healthy appearing, alert and well nourished General appearance: cooperative HENMT Common normals: normocephalic, hearing grossly normal bilaterally and moist oral mucous membranes Head and scalp: normocephalic Eye Common normals: PERRL Pupil: PERRL Neck & C-Spine Common normals: full ROM General: normal visual inspection Chest Common normals: inspection of chest normal Respiratory Common normals: normal respiratory effort, no retractions and no use of accessory muscles Neuro Common normals: oriented x3, CN's II-XII intact bilaterally, moves all extremities, no focal motor deficits, no sensory deficits noted and deep tendon reflexes 2+ bilaterally Sensorium/orientation: alert Motor exam: strength 5/5 throughout and no movement abnormalities noted Psych Common normals: mental status grossly normal, thought process normal, cooperative, affect normal, speech normal and activity/motor behavior normal Speech: normal speech Thought process: normal thought process Results Additional Findings Additional findings: I have checked an [place] report on this patient today and there are no aberrancies noted in the prescribing history.?? A drug screen was completed and reviewed within the last year, and if there has not been a drug screen completed we ordered one today to monitor higher risk, state monitored pain medication use. As part of providing excellent, safe, comprehensive care, the following was completed at our patient's visit: 1. A medication reconciliation and review to ensure accurate knowledge of current/active medications, including asking our patients to inform us about any [id number] medications or herbal remedies/nutritional supplements/alternative remedies. 2. A review to specifically ensure our patients have had annual screening for: elevated body mass index (BMI), tobacco use, screening for depression, and screening for unhealthy alcohol use. When screening is concerning, patients are provided with education and the specific recommendation to discuss the concerning health issue and treatment options with their primary care provider. Assessment and Plan Assessment and Plan (1) Osteoarthritis of right knee: Assessment and Plan: We discussed the risks and benefits of the procedure with the patient, and we are NOT planning on using sedation as outlined in the guidelines from Medicare unless there is a documented reason that sedation would be strongly recommended.?? ?The procedure will be completed with fluoroscopic guidance.? (2) Chronic pain of right knee: Plan severe OA of right knee, patients doctor has requesting patient lose weight prior to surgery and patient does not think he can schedule a surgery at this time or tolerate the recovery proceed with right genicular nerve block under fluoroscopy with Dr Porter working towards thermal RFA continue HEP as tolerated continue current medications f/u 1 week after procedure
== END 2023-06-27 12:20 | disposition home or self-care (01) ==
LOC: PM 12:20
PROVIDERS: PCP Family Medicine; Visit Provider Nurse Practitioner
DX: M17.11 Unilateral primary osteoarthritis, right knee (principal); M25.561 Pain in right knee
CPT/HCPCS: G0463

== ENCOUNTER 2023-09-05 09:11 | Outpatient (OUT) | payer MEDICARE, SELFPAY ==
--- OUTSIDE RECORDS SUMMARY | 2023-09-05 09:31 | XMS_ITS | CCD ---
Author Organization [facility] Care Team Providers Care Clerk General Office Name Role Phone PHYSICIAN, DEFAULT Unavailable Unavailable PHYSICIAN, DEFAULT Unavailable Unavailable HOY, ROMEL Unavailable Unavailable [place], EHAB A Unavailable Unavailable [place], EHAB A Unavailable Unavailable HOY, ROMEL Unavailable Unavailable HOY, ROMEL Unavailable Unavailable [place] Unavailable Unavailable [place], EHAB A Unavailable Unavailable HOY ., DR URENA Primary Care Unavailable WENDY WHITMAN Admitting Unavailable WENDY WHITMAN Attending Unavailable CARTER, DR DAMIR Thibodeaux Consulting Unavailable WENDY WHITMAN Consulting Unavailable HOY ., DR URENA Admitting Unavailable HOY ., DR URENA Attending Unavailable HOY ., DR URENA Primary Care Unavailable HOY ., DR URENA Consulting Unavailable [place], EHAB Attending Unavailable German MARTIN, Navdeep Dodd Attending Unavailable DAKOTA GARCIA Attending Unavailable Allergies Allergy Classification Reported Allergen(s) Allergy Type Date of Onset Reaction(s) Facility (1 source) 06414,00; Translations: [54854,00] Propensity to adverse reactions (disorder) 9 [facility] Repository (2 sources) levoFLOXacin; Translations: [LEVOFLOXACIN] Drug Allergy 3 The [facility] Repository Problems Active Problems Problem Classification Problem Date Documented Date Episodic/Chronic Complication of device; implant or graft (1 source) Stenosis of coronary artery stent, initial encounter; Translations: [STENOSIS OF CORONARY ARTERY STENT, INITIAL ENCOUNTER] Onset: 03-05-2018 Coronary atherosclerosis and other heart disease (5 sources) Atherosclerotic heart disease of [place] coronary artery with unstable angina pectoris; Translations: [...] Onset: 07-09-2022 Episodic Other aftercare (1 source) manager long term care (current) use of 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/antip latelets; Translations: [CARE HOME (CURRENT) USE OF ANTITHROMBOTICS/ANTIP LATELETS] Onset: 03-05-2018 Episodic Other aftercare (1 source) correction (current) use of aspirin; Translations: [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] Onset: 03-05-2018 Episodic Other aftercare (1 source) Other terminal operations supervisor (current) drug therapy; Translations: [OTH CARE HOME CURRENT DRUG THERAPY] Onset: 07-09-2022 Episodic Other aftercare (1 source) manager long term care (current) use of oral hypoglycemic drugs; Translations: [CARE HOME (CURRENT) USE OF ORAL HYPOGLYCEMIC DRUGS] Onset: [...] Range Facility Office Visiton 01-07-2023 Follow-up visit [id number] Sonia Plasencia 1945 M Date Provider Department Center 01/07/2023 MORAIMA MORRISON CARD [facility] No family history on file Level of Service:01445 [place] OFFICE/OUTPATIENT ESTABLISHED LOW MDM 20-29 MIN Normal [facility] CBC AUTO DIFFon 07-04-2022 BASO # 0.1 103/ul Normal 0.0-0.1 [facility] Comment on above: Performed By: #### C BC #### [facility] Laboratory [address] [address] [address] Cami Bishop Basophils/100 WBC (Bld) 0.9 % Normal 0.2-2.0 [facility] Comment on above: Performed By: #### C BC #### [facility] Laboratory [address] [address] [address] Cami Bishop EO # 0.1 103/ul Normal 0.0-0.7 [facility] Comment on above: Performed By: #### C BC #### [facility] Laboratory [address] [address] [address] Cami Bishop Eosinophils/100 WBC (Bld) 2.0 % Normal 0.9-7.0 [facility] Comment on above: Performed By: #### C BC #### [facility] Laboratory [address] [address] [address] Cami Bishop Erythrocyte distribution width (RBC) [Ratio] 12.2 % Normal 11.0-15.0 [facility] Comment on above: Performed By: #### C BC #### [facility] Laboratory [address] [address] [address] Cami Bishop Hematocrit (Bld) [Volume fraction] 45.3 % Normal 42.0-54.0 [facility] Comment on above: Performed By: #### C BC #### [facility] Laboratory [address] [address] [address] Cami Bishop Hemoglobin (Bld) [Mass/Vol] 16.0 g/dL Normal 14.0-18.0 [facility] Comment on above: Performed By: #### C BC #### [facility] [address] [address] [address] Cami Bishop IG # 0.04 10e3/ul Critically high 0.00-0.03 [facility] Comment on above: Performed By: #### C BC #### [facility] [address] [address] [address] Cami Bishop IG % 0.7 % Critically high 0.0-0.5 [facility] Comment on above: Performed By: #### C BC #### [facility] [address] [address] [address] Cami Bishop LYMPH # 1.6 103/ul Normal 1.2-3.8 [facility] Comment on above: Performed By: #### C BC #### [facility] Laboratory [address] [place] [address] Dr. Cami Bishop Lymphocytes/100 WBC (Bld) 28.6 % Normal 20.5-60.0 [facility] Comment on above: Performed By: #### C BC #### [facility] Laboratory [address] [place] [address] Dr. Cami Bishop MANUAL DIFF REQ NO Normal [facility] Comment on above: Performed By: #### C BC #### [facility] [address] [place] [address] Dr. Cami Bishop MCH (RBC) [Entitic mass] 31.2 pg Normal 25.9-34.0 [facility] Comment on above: Performed By: #### C BC #### [facility] [address] [place] [address] Dr. Cami Bishop MCHC (RBC) [Mass/Vol] 35.3 g/dL Critically high 29.9-35.2 [facility] Comment on above: Performed By: #### C BC #### [facility] [address] [place] [address] Dr. Cami Bishop MCV (RBC) [Entitic vol] 88.3 fL Normal 80.0-94.0 [facility] Comment on above: Performed By: #### C BC #### [facility] [address] [place] [address] Dr. Cami Bishop MONO # 0.6 103/ul Normal 0.3-0.8 [facility] Comment on above: Performed By: #### C BC #### [facility] [address] [place] [address] Dr. Cami Bishop Monocytes/100 WBC (Bld) 11.2 % Normal 1.7-12.0 [facility] Comment on above: Performed By: #### C BC #### [facility] [address] [place] [address] Dr. Cami Bishop NEUT # 3.2 103/ul Normal 1.4-6.5 [facility] Comment on above: Performed By: #### C BC #### [facility] [address] [place] [address] Dr. Cami Bishop Neutrophils/100 WBC (Bld) 56.6 % Normal 43.0-75.0 [facility] Comment on above: Performed By: #### C BC #### [facility] [address] [place] [address] Dr. Cami Bishop Platelet mean volume (Bld) [Entitic vol] 9.6 fL Normal 9.5-13.5 [facility] Comment on above: Performed By: #### C BC #### [facility] [address] [place] [address] Dr. Cami Bishop PLT 229 103/ul Normal 150-450 [facility] Comment on above: Performed By: #### C BC #### [facility] [address] [place] [address] Dr. Cami Bishop RBC 5.13 106/ul Normal 4.70-6.10 [facility] Comment on above: Performed By: #### C BC #### [facility] [address] [place] [address] Dr. Cami Bishop WBC 5.6 103/ul Normal 4.0-11.0 [facility] Comment on above: Performed By: #### C BC #### [facility] [address] [address] [address] Cami Bishop FREE T3on 07-04-2022 FREE T3 2.50 pg/mlL Normal 2.18-3.98 [facility] Comment on above: Performed By: #### T SH, LIPID, FT3, T4, CMP #### [facility] [address] [address] [address] Cami Bishop GLYCOHEMOGLOBIN A1Con 2022 ADA RECOMMENDATION SEE BELOW Normal [facility] Comment on above: Result Comment: ADA RECOMMENDED LIMIT 4.0 - 6.0 ADA THERAPEUTIC TARGET < 7.0 ACTION SUGGESTED > 7.0 Performed By: #### A 1C #### [facility] [address] [place] [address] Dr. Cami Bishop Glucose [Mass/Vol] 105 mg/dL Normal [facility] Comment on above: Performed By: #### A 1C #### [facility] [address] [place] [address] Dr. Cami Bishop HbA1c (Bld) [Mass fraction] 5.3 % Normal 4.5-6.2 [facility] Comment on above: Performed By: #### A 1C #### [facility] [address] [place] [address] Dr. Cami Bishop LIPID PROFILEon 07-04-2022 CHOL-HDL RATIO NORM SEE BELOW Normal [facility] Comment on above: Result Comment: 3.3 - 4.4 LOW RISK 4.4 - 7.1 AVERAGE RISK 7.1 - 11.0 MODERATE RISK >11.0 HIGH RISK Performed By: #### T SH, LIPID, FT3, T4, CMP #### [facility] [address] [place] [address] Dr. Cami Bishop Cholesterol [Mass/Vol] 123 mg/dL Normal <=200 [facility] Comment on above: Performed By: #### T SH, LIPID, FT3, T4, CMP #### [facility] [address] [place] [address] Dr. Cami Bishop Cholesterol in HDL [Mass/Vol] 39 mg/dL Critically low 40-60 [facility] Comment on above: Performed By: #### T SH, LIPID, FT3, T4, CMP #### [facility] [address] [address] [address] Cami Bishop Cholesterol in LDL [Mass/Vol] 55.6 mg/dL Normal [facility] Comment on above: Performed By: #### T SH, LIPID, FT3, T4, CMP #### [facility] [address] [address] [address] Cami Bishop Cholesterol.total/Ch olesterol in HDL [Mass ratio] 3.2 {ratio} Normal [facility] Comment on above: Performed By: #### T SH, LIPID, FT3, T4, CMP #### [facility] [address] [address] [address] Cami Bishop HDL NORMAL > or = 60 mg/dl - LO W CARDIOVASCULAR RISK <40 mg/dl - HIGH CARDIOVASCULAR RISK Normal [facility] Comment on above: Performed By: #### T SH, LIPID, FT3, T4, CMP #### [facility] [address] [address] [address] Cami Bishop LDL CALC NORMAL SEE BELOW Normal [facility] Comment on above: Result Comment: <100 mg/dl OPTIMAL 100 - 129 mg/dl NEAR OR ABOVE OPTIMAL 130 - 159 mg/dl BORDERLINE HIGH 160 - 189 mg/dl HIGH >190 mg/dl VERY HIGH Performed By: #### T SH, LIPID, FT3, T4, CMP #### [facility] [address] [address] [address] Cami Bishop Triglyceride [Mass/Vol] 142 mg/dL Normal <=150 [facility] Comment on above: Performed By: #### T SH, LIPID, FT3, T4, CMP #### [facility] [address] [address] [address] Cami Bishop VLDL CALC 28.4 mg/dL Normal [facility] Comment on above: Performed By: #### T SH, LIPID, FT3, T4, CMP #### [facility] [address] [address] [address] Cami Bishop PROF 14(COMP METB)on 023 Albumin [Mass/Vol] 3.8 g/dL Normal 3.4-5.0 [facility] Comment on above: Performed By: #### T SH, LIPID, FT3, T4, CMP #### [facility] [address] [place] [address] Dr. Cami Bishop Albumin/Globulin [Mass ratio] 1.3 {ratio} Normal [facility] Comment on above: Performed By: #### T SH, LIPID, FT3, T4, CMP #### [facility] [address] [place] [address] Dr. Cami Bishop ALP [Catalytic activity/Vol] 44 U/L Critically low 46-116 [facility] Comment on above: Performed By: #### T SH, LIPID, FT3, T4, CMP #### [facility] [address] [place] [address] Dr. Cami Bishop ALT [Catalytic activity/Vol] 36 U/L Normal 16-63 [facility] Comment on above: Performed By: #### T SH, LIPID, FT3, T4, CMP #### [facility] [address] [place] [address] Dr. Cami Bishop Anion gap [Moles/Vol] 9.3 mmol/L Normal [facility] Comment on above: Performed By: #### T SH, LIPID, FT3, T4, CMP #### [facility] [address] [place] [address] Dr. Cami Bishop AST [Catalytic activity/Vol] 22 U/L Normal 15-37 [facility] Comment on above: Performed By: #### T SH, LIPID, FT3, T4, CMP #### [facility] [address] [place] [address] Dr. Cami Bishop Bilirubin [Mass/Vol] 1.4 mg/dL Critically high 0.2-1.0 [facility] Comment on above: Performed By: #### T SH, LIPID, FT3, T4, CMP #### [facility] [address] [place] [address] Dr. Cami Bishop Calcium [Mass/Vol] 8.9 mg/dL Normal 8.5-10.1 [facility] Comment on above: Performed By: #### T SH, LIPID, FT3, T4, CMP #### [facility] [address] [address] [address] Cami Bishop Chloride [Moles/Vol] 98 mmol/L Normal 98-107 [facility] Comment on above: Performed By: #### T SH, LIPID, FT3, T4, CMP #### [facility] [address] [place] [address] Dr. Cami Bishop CO2 [Moles/Vol] 32.7 mmol/L Critically high 21.0-32.0 [facility] Comment on above: Performed By: #### T SH, LIPID, FT3, T4, CMP #### [facility] [address] [place] [address] Dr. Cami Bishop Creatinine [Mass/Vol] 0.95 mg/dL Normal 0.70-1.30 [facility] Comment on above: Performed By: #### T SH, LIPID, FT3, T4, CMP #### [facility] [address] [place] [address] Dr. Cami Bishop EGFR-AF GREEK >60 Normal >=[address] [facility] Comment on above: Performed By: #### T SH, LIPID, FT3, T4, CMP #### [facility] [address] [place] [address] Dr. Cami Bishop EGFR-NON AF GREEK >60 Normal >=60 [facility] Comment on above: Performed By: #### T SH, LIPID, FT3, T4, CMP #### [facility] [address] [place] [address] Dr. Cami Bishop Globulin (S) [Mass/Vol] 2.9 g/dL Normal [facility] Comment on above: Performed By: #### T SH, LIPID, FT3, T4, CMP #### [facility] [address] [place] [address] Dr. Cami Bishop Glucose [Mass/Vol] 102 mg/dL Normal 74-106 [facility] Comment on above: Performed By: #### T SH, LIPID, FT3, T4, CMP #### [facility] [address] [place] [address] Dr. Cami Bishop Potassium [Moles/Vol] 4.0 mmol/L Normal 3.5-5.1 [facility] Comment on above: Performed By: #### T SH, LIPID, FT3, T4, CMP #### [facility] [address] [place] [address] Dr. Cami Bishop Protein [Mass/Vol] 6.7 g/dL Normal 6.4-8.2 [facility] Comment on above: Performed By: #### T SH, LIPID, FT3, T4, CMP #### [facility] [address] [place] [address] Dr. Cami Bishop Sodium [Moles/Vol] 136 mmol/L Normal 136-145 [facility] Comment on above: Performed By: #### T SH, LIPID, FT3, T4, CMP #### [facility] [address] [place] [address] Dr. Cami Bishop Urea nitrogen [Mass/Vol] 14.0 mg/dL Normal 7.0-18.0 [facility] Comment on above: Performed By: #### T SH, LIPID, FT3, T4, CMP #### [facility] [address] [place] [address] Dr. Cami Bishop Urea nitrogen/Creatinine [Mass ratio] 14.7 mg/mg Normal [facility] Comment on above: Performed By: #### T SH, LIPID, FT3, T4, CMP #### [facility] [address] [place] [address] Dr. Cami Bishop T4on 07-04-2022 T4 [Mass/Vol] 6.80 ug/dL Normal 4.50-12.10 [facility] Comment on above: Performed By: #### T SH, LIPID, FT3, T4, CMP #### [facility] [address] [place] [address] Dr. Cami Bishop TSHon 07-04-2022 TSH 2.193 uIU/mL Normal 0.358-3.740 [facility] Comment on above: Performed By: #### T SH, LIPID, FT3, T4, CMP #### [facility] [address] [place] [address] Dr. Cami Bishop VITAMIN D 25 OHon 07-04-2022 VIT D 25-OH 35.1 ng/mL Normal [facility] Comment on above: Performed By: #### V ROSELINE, PSASC #### [facility] [address] [place] [address] Dr. Cami Bishop VIT D RANGES SEE BELOW Normal [facility] Comment on above: Result Comment: <20 ng/mL Vit D deficient 20 - <30 ng/mL Vit D insufficient 30 - 100 ng/mL Vit D sufficient >100 ng/mL Potential Toxicity Performed By: #### V ROSELINE PSASC #### [facility] [address] [place] [address] Dr. Cami Bishop ER URINE PROFILEon 2 Bilirubin Ql (U) Negative Normal NEGATIVE [facility] Comment on above: Performed By: #### T SH, LIPID, FT3, T4, CMP #### [facility] [address] [place] [address] Dr. Cami Bishop Clarity (U) CLEAR Normal CLEAR [facility] Comment on above: Performed By: #### T SH, LIPID, FT3, T4, CMP #### [facility] [address] [place] [address] Dr. Cami Bishop Color (U) YELLOW Normal YELLOW [facility] Comment on above: Performed By: #### T SH, LIPID, FT3, T4, CMP #### [facility] [address] [place] [address] Dr. Cami Bishop ERUAHD A micrscopic examination will be performed if indicated. Normal [facility] Comment on above: Performed By: #### T SH, LIPID, FT3, T4, CMP #### [facility] [address] [place] [address] Dr. Cami Bishop Glucose Ql (U) Negative Normal NEGATIVE [facility] Comment on above: Performed By: #### T SH, LIPID, FT3, T4, CMP #### [facility] [address] [place], [place] [id number] Dr. Cami Bishop Hemoglobin Ql (U) Negative Normal NEGATIVE [facility] Comment on above: Performed By: #### T SH, LIPID, FT3, T4, CMP #### [facility] [address] [address] [address] Cami Bishop Ketones Ql (U) Negative Normal NEGATIVE [facility] Comment on above: Performed By: #### T SH, LIPID, FT3, T4, CMP #### [facility] [address] [address] [address] Cami Bishop LEUKOCYTES Negative Normal NEGATIVE [facility] Comment on above: Performed By: #### T SH, LIPID, FT3, T4, CMP #### [facility] [address] [place] [address] Dr. Cami Bishop Nitrite Ql (U) Negative Normal NEGATIVE [facility] Comment on above: Performed By: #### T SH, LIPID, FT3, T4, CMP #### [facility] [address] [address] [address] Cami Bishop pH (U) 6.0 [pH] Normal 5-9 [facility] Comment on above: Performed By: #### T SH, LIPID, FT3, T4, CMP #### [facility] [address] [place] [address] Dr. Cami Bishop SPEC GRAVITY 1.020 Normal 1.005-<=1.025 [facility] Comment on above: Performed By: #### T SH, LIPID, FT3, T4, CMP #### [facility] [address] [place] [address] Dr. Cami Bishop UA PROTEIN Negative Normal NEGATIVE/ TRACE [facility] Comment on above: Performed By: #### T SH, LIPID, FT3, T4, CMP #### [facility] [address] [place] [address] Dr. Cami Bishop UR MICRO IND NOT INDICATED Normal [facility] Comment on above: Performed By: #### T SH, LIPID, FT3, T4, CMP #### [facility] [address] [place] [address] Dr. Cami Bishop Urobilinogen Qn (U) 1.0 {Dia'U}/dL Normal 0.2 - 1. 0 [facility] Comment on above: Performed By: #### T SH, LIPID, FT3, T4, CMP #### [facility] [id number] Cami Bishop XR LSPINE 2_3 VIEWSon [...] by: DAMIR MACHADO Date: 2022-01-11 13:56 Normal [facility] Consent for COVID Vaccineon 08-06-2020 SARS-CoV-2 (COVID-19) RNA LIN+probe Ql (Unsp spec) [id number]#1. 00CD:[address] [facility] Consent for COVID Vaccineon 07-01-2020 SARS-CoV-2 (COVID-19) RNA LIN+probe Ql (Unsp spec) [id number]#1. 00CD:[address] [facility] Consent for Treatmenton 06-20 Consent for Treatment [id number]. 00CD:[address] [facility] Coding Summary.on 06-29-2020 Coding Summary. CODING DATE: 06/29/2020 FINAL [facility] STATUS: PAYOR: Medicare APC DESCRIPTION [...] CphT Date Saved: 06/29/2020 11:45 am Normal [facility] Ambulatory Clinical Summaryo n 01-26-2020 Ambulatory Clinical Summary {[id number]}CD:[id number] Normal [facility] Ambulatory Clinical Summaryo n 12-16-2019 Ambulatory Clinical Summary {[id number] }CD:[id number] Normal [facility] General Surgery Office/Clini c Noteon 12-16-2019 General Surgery Office/Clinic Note Chief Complaint post operative follow up HPI Staff 14 day post operative follow up post excisional biopsy from left occipital scalp completed at [facility] on 12/03. Denies pain; no use of [...] History of gout Hyperlipemia Lipoma of scalp PA (myocardial infarction) Obstructive sleep apnea Pilar cyst [...] Date Status diphtheria/pertussis, acel/tetanus adult 10/26/2014 Given [facility] Comment on above: Result Comment: Elec tronically Signed By: CRISTINA MARTIN, Joseph Ledesma\Date and Time Signed: 12/16/19 13:32 EDT Operative Reporton 0 Operative Report [id number]#[id number] 0CD:127 [facility] Pathology Noteon 12-08-2019 Pathology Note [id number] 0CD:127 [facility] Facesheeton 11-13-2019 Facesheet [id number] 0CD:127 [facility] Physician Referralon 020 Physician Referral [id number] CD:127 [facility] Cardiovascular Lab Reporton 03-06-2018 Cardiovascular Lab Report [facility] Patient Name: Eh [facility] García MR #: [id number] of Physician: Sheryl Stratton M.D.Division of Service Date: 03/05/2018Cardiology Birthdate: [birth year]Adult Cardiovascular Room #: 3CD [id number] [facility], [place] [address]Pwsgy Fax Cardiovascular Laboratory ReportFINAL IMPRESSIONS:1. Severe stenosis of the left anterior descending coronary artery, successfully treated by balloon angioplasty and Synergy drug-eluting stent placement.2. Severe stenosis of the posterior descending artery, successfully treated by balloon angioplasty and Synergy drug-eluting stent placement.3. Moderate angiographic, non-hemodynamically significant stenosis of the right coronary artery as assessed by instantaneous wave-free ratio (iFR).4. Mvrh-nb-krmizzwf in-stent restenosis of the mid left anterior [...] rehabilitation.5. Follow up with me in the [facility] in the next 2 to 4 weeks.6. [...] the left radial arteryunder ultrasound guidance. A 6-Irish Glidesheath was inserted withoutdifficulty. Coronary angiography was performed using JR4 and PW5gdkrrmoat. After reviewing the images, it was elected to proceed with aninterventional procedure.A 6-Irish XB3.5 guide catheter was advanced over J-wire and coaxiallyengaged into the left main coronary ostium. The [place] pressure wire wasadvanced through the catheter with [...] wire trauma. The XB guide catheter wasremoved.A 6-Irish JR4 guide catheter was advanced over the J-wire and coaxiallyengaged into the right coronary ostium. A new [place] pressure wire wasadvanced through the catheter with [...] be transferred to the holding area in stablecondition.FINDTN GS:Hemodynamics:RA 13.RV 36/9, 15.PA 36/13 (25).PCWP 15.TPG [...] restenosis. Distal to a small adjacent diagonal, uxhmnx-zd-tufauy left anterior descending shows a short segment [...] 03/05/2018/01:31 P/Moraima Ruelas M.D.Date Trans: 03/06/2018 12:18 P/mmoDN_JN:[id number] 991cc: Romel Quijano M.D. [facility] [address] [facility] [facility] [place] [facility] [address] [facility] Encounters Encounter Date Encounter Type Care Provider Facility Start: 07-09-2023 End: 07-09-2023 ambulatory DAKOTA GARCIA Not Available Start: 04-22-2023 End: 04-23-2023 ambulatory Navdeep Porter MD Facility: [facility] Start: 01-07-2023 End: 01-07-2023 ambulatory MORAIMA RUELAS [facility] Start: 07-04-2022 End: 07-05-[address] ROMEL QUIJANO . Facility: Start: 01-11-2022 End: 01-11-[address] ROMEL QUIJANO . Facility: Start: 04-07-2018 End: 04-08-2018 Patient encounter procedure DEFAULT PHYSICIAN Facility:[facility] Start: 03-05-2018 End: 03-06-2018 Patient encounter procedure MORAIMA RUELAS Facility:[facility] Procedures Date Procedure Procedure Detail Performing Clinician Start: 07-04-[address] DESIRAE QUIJANO . Comment on above: Performed By: #### V ITAD, PSASC #### [facility] [address] [place] [address] Dr. aCmi Bishop Start: 03-05-2018 R HRT CORONARY ARTERY ANGIO MORAIMA RUELAS Payers Date Payer Category Payer Medicare 1958 Private Health Insurance [id number] 1945 Unknown [id number] [id number] 1945 Unknown [id number] 2.16.8 [id number] 1945 Unknown [id number] 2.16.84 [id number] 1945 Unknown [id number] 2.16.84 [id number] 1945 Unknown [id number] 2.16. [id number] 1945 Unknown [id number] 2.16.84 [id number] Unknown Progress note 01-07-2023 Note Date & Type Note Facility 01-07-2023 Note [facility] Cardiology Clinic Note Chief Complaint: Patient here for 1 year follow up CAD, NSVT, hypertension, and hyperlipidemia. Denies chest pain and LE edema. VO remains unchanged. No recent testing. HPI: Sonia Plasencia is a 77 y.o. male With history of coronary artery disease, prior PCI/stent placement here in routine follow-up Has been doing relatively well from a heart standpoint. Continues to have exertional shortness of breath no worse than usual. Unfortunately, has been under tremendous stress. His is critically ill and in the intensive care unit in [facility]. She had a bowel perforation with peritonitis. She required surgery. She is being placed on dialysis today. Cardiology ROS: Review of Systems Cardiovascular: Positive for dyspnea on exertion. Musculoskeletal: Positive for arthritis and joint pain. All other systems reviewed and are negative. Past Medical History He has a past medical history of Hyperlipidemia, Hypertension, Myocardial infarction ([facility]/HCC), and Sleep apnea. Surgical History He has [...] assessed by instantaneous wave-free ratio (iFR). 4. Tjgt-nc-zpwudkvs in-stent restenosis of the mid left anterior [...] 5. Follow up with me in the [facility] in the next 2 to 4 weeks. [...] and reported i (more content not included)... [facility] Summary Purpose Family History No Family History [...] section and content) DATE CREATED AUTHOR 04/28/2018 [facility] DATE CREATED AUTHOR AUTHOR'S ORGANIZ ATION 10/26/2020 [facility] DATE CREATED AUTHOR AUTHOR'S ORGANIZ ATION 07/09/2022 [facility] DATE CREATED AUTHOR AUTHOR'S ORGANIZ ATION 01/07/2023 [facility] DATE CREATED AUTHOR AUTHOR'S ORGANIZ ATION 05/03/2023 [facility] DATE CREATED AUTHOR AUTHOR'S GAUDENCIO AGUILA 07/16/2023 [facility] [place] [facility] FOR RECORDS PERTAINING TO PATIENTS WHO ARE [...] BE BASED ON THE PRIMARY CLINICAL RECORDS. [facility] [employer] [facility]. provides no warranty or guarantee of the accuracy or completeness of information in this document.
[2023-09-05 09:48] LABS: Estimated Average Glucose 100 mg/dL; Glycohemoglobin A1C 5.1 % (4.5-6.2)
[2023-09-05 09:51] LABS: Basophils Percent Auto 0.7 % (0.2-2.0); Eosinophils Absolute Auto 0.1 10^3/uL (0.0-0.7); Eosinophils Percent Auto 1.3 % (0.9-7.0); Hematocrit 43.8 % (42.0-54.0); Hemoglobin 15.5 g/dL (14.0-18.0); Immature Granulocytes Abs Auto 0.02 10^3/uL (0.00-0.03); Immature Granulocytes Pct Auto 0.4 % (0.0-0.5); Lymphocytes Absolute Auto 1.2 10^3/uL (1.2-3.8); Mean Corpuscular HGB Conc 35.4 g/dL (29.9-35.2); Mean Corpuscular Hemoglobin 31.8 pg (25.9-34.0); Mean Corpuscular Volume 89.9 fL (80.0-94.0); Mean Platelet Volume 9.6 fL (9.5-13.5); Monocytes Absolute Auto 0.6 10^3/uL (0.3-0.8); Monocytes Percent Auto 12.4 % (1.7-12.0); Neutrophils Absolute Auto 2.7 10^3/uL (1.4-6.5); Neutrophils Percent Auto 59.2 % (43.0-75.0); Platelet Count 263 10^3/uL (150-450); Red Blood Count 4.87 10^6/uL (4.70-6.10); Red Cell Distribution Width 11.7 % (11.0-15.0); White Blood Count 4.5 10^3/uL (4.0-11.0)
[2023-09-05 10:39] LABS: Alanine Aminotransferase 42 U/L (16-63); Albumin Globulin Ratio 1.3; Albumin Level 3.8 g/dL (3.4-5.0); Alkaline Phosphatase 35 U/L (46-116); Anion Gap 12.6; Aspartate Amino Transferase 27 U/L (15-37); BUN Creatinine Ratio 9.4; Bilirubin Total 1.9 mg/dL (0.2-1.0); Calcium 9.3 mg/dL (8.5-10.1); Carbon Dioxide 29.5 mmol/L (21.0-32.0); Chloride 94 mmol/L (98-107); Chol HDL Ratio 2.2; Cholesterol 97 mg/dL (<=200); Estimated GFR (African America >60 (>=60); Estimated GFR (Non-African Ame >60 (>=60); Glucose 99 mg/dL (74-106); HDL Cholesterol 45 mg/dL (40-60); LDL Cholesterol Calculated 34.8 mg/dL; Potassium 4.1 mmol/L (3.5-5.1); Sodium 132 mmol/L (136-145); Thyroid Stimulating Hormone 1.627 uIU/mL (0.358-3.740); Total Protein 6.8 g/dL (6.4-8.2); Triglycerides 86 mg/dL (<=150); VLDL CHOLESTEROL 17.2 mg/dL
[2023-09-05 10:44] LABS: Prostate Specific Antigen Scrn 1.47 ng/mL (<=4.00)
[2023-09-05 11:28] LABS: Free T4 0.95 ng/dL (0.76-1.46)
== END 2023-09-05 09:12 | disposition home or self-care (01) ==
LOC: LAB 09:14
PROVIDERS: PCP Family Medicine; Visit Provider Family Medicine
DX: E56.9 Vitamin deficiency, unspecified (principal); R53.83 Other fatigue; Z79.899 Other long term (current) drug therapy; Z12.5 Encounter for screening for malignant neoplasm of prostate; R73.09 Other abnormal glucose; E78.5 Hyperlipidemia, unspecified
CPT/HCPCS: 36415; 80053; 80061; 82306; 83036; 84439; 84443; 85025; G0103

== ENCOUNTER 2023-09-09 10:20 | Outpatient (OUT) | payer MEDICARE, SELFPAY ==
--- NOTE | 2023-09-09 09:15 | NM_ITS ---
Patient Name: SONIA PLASENCIA MR#: [id number] : 1945 Exam Date: 09/09/2023 Ordering Doctor: DR QUINTON RUELAS M.D. RADIOLOGY REPORT PROCEDURE: NM [place] PERF SPECT REST STR COMPARISON: None. INDICATIONS: PRE-PROCEDURE CARDIOVASCULAR EXAM TECHNIQUE: Exam Description: Stress/Rest two day protocol gated SPECT Rest Imagin.3 mCi Tc-99m Cardiolite IV on 09/09/2023 Stress Imaging 25.6 mCi Tc-99m Cardiolite IV on 09/11/2023 Exercise Protocol: 0.4 mg Lexiscan given IV Heart Rate (bpm): Rest: 71 Max: 93 PMHR: 65 Blood Pressure: Rest: 134/68 Max: 134/68 Symptoms: Rest and peak stress ECG findings were normal and the exercise portion of the study was normal per attending physician Dr. Murphy . For more details please see separate cardiac stress test report. FINDINGS: QUALITY OF STUDY: Good. PERFUSION DEFECT: LOCATION: Basal inferior. Mid-inferior. Apical inferior. [place]. SIZE: Medium (3-4 segments). SEVERITY: Moderate. TYPE: Mixed. WALL MOTION: Normal. LV SIZE: Enlarged; EDV 140 mL. TID / TCD: None; 1.1 LVEF: Normal. Calculated EF 56%. SUMMARY: Myocardial perfusion imaging study has ABNORMAL findings. CONCLUSION: 1. Moderate sized area of moderately decreased uptake in the inferior wall, RCA distribution partial redistribution rest images suggesting an area of partial reversible ischemia. 2. Dilated left ventricle, EDV 140 milliliters 3. Normal exercise test Dictated by: Bang Campbell MD on 09/13/2023 at 07:31 Approved by: Bang Campbell MD on 09/13/2023 at 07:34
--- OUTSIDE RECORDS SUMMARY | 2023-09-09 10:40 | XMS_ITS | CCD ---
Author Organization [facility] Care Team Providers Care Evidence Specialist Name Role Phone PHYSICIAN, DEFAULT Unavailable Unavailable PHYSICIAN, DEFAULT Unavailable Unavailable HOY, ROMEL Unavailable Unavailable ELTAHAWY, EHAB A Unavailable Unavailable [place], EHAB A Unavailable Unavailable HOY, ROMEL Unavailable Unavailable HOY, ROMEL Unavailable Unavailable [place] Unavailable Unavailable [place], EHAB A Unavailable Unavailable [...] Date of Onset Reaction(s) Facility (1 source) 37836,00; Translations: [53345,00] Propensity to adverse reactions (disorder) 9 The [facility] Repository (2 sources) levoFLOXacin; Translations: [LEVOFLOXACIN] Drug Allergy 3 The Repository Problems Active Problems Problem Classification Problem Date Documented Date Episodic/Chronic Complication of device; implant or graft (1 source) Stenosis of coronary artery stent, initial encounter; Translations: [STENOSIS OF CORONARY ARTERY STENT, INITIAL ENCOUNTER] Onset: 03-05-2018 Coronary atherosclerosis and other heart disease (5 sources) Atherosclerotic heart disease of [place] coronary artery with unstable angina pectoris; Translations: [...] Onset: 07-09-2022 Episodic Other aftercare (1 source) 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 manager (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) use of 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/antip latelets; Translations: [PRISON (CURRENT) USE OF ANTITHROMBOTICS/ANTIP LATELETS] Onset: 03-05-2018 Episodic Other aftercare (1 source) long-term (current) use of aspirin; Translations: [REPROGRAPHICS ASSOCIATE (CURRENT) USE OF ASPIRIN] Onset: 03-05-2018 Episodic Other aftercare (1 source) Other 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 manager (current) drug therapy; Translations: [OTH PRISON CURRENT DRUG THERAPY] Onset: 07-09-2022 Episodic Other aftercare (1 source) 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 manager (current) use of oral hypoglycemic drugs; Translations: [PRISON (CURRENT) USE OF ORAL HYPOGLYCEMIC DRUGS] Onset: [...] Range Facility Office Visiton 01-07-2023 Follow-up visit [id number] Sonia Plasencia 1945 M Date Provider Department Center 01/07/2023 MORAIMA MORRISON CARD [facility] No family history on file Level of Service:14685 [place] OFFICE/OUTPATIENT ESTABLISHED LOW MDM 20-29 MIN Normal [facility] CBC AUTO DIFFon 07-04-2022 BASO # 0.1 103/ul Normal 0.0-0.1 [facility] Comment on above: Performed By: #### C BC #### Laboratory [address] [address] [address] Cami Bishop Basophils/100 WBC (Bld) 0.9 % Normal 0.2-2.0 [facility] Comment on above: Performed By: #### C BC #### Laboratory [address] [address] [address] Cami Bishop EO # 0.1 103/ul Normal 0.0-0.7 [facility] Comment on above: Performed By: #### C BC #### Laboratory [address] [address] [address] Cami Bihsop Eosinophils/100 WBC (Bld) 2.0 % Normal 0.9-7.0 [facility] Comment on above: Performed By: #### C BC #### Laboratory [address] [address] [address] Cami Bishop Erythrocyte distribution width (RBC) [Ratio] 12.2 % Normal 11.0-15.0 [facility] Comment on above: Performed By: #### C BC #### Laboratory [address] [address] [address] Cami Bishop Hematocrit (Bld) [Volume fraction] 45.3 % Normal 42.0-54.0 [facility] Comment on above: Performed By: #### C BC #### Laboratory [address] [address] [address] Cami Bishop Hemoglobin (Bld) [Mass/Vol] 16.0 g/dL Normal 14.0-18.0 [facility] Comment on above: Performed By: #### C BC #### Laboratory [address] [address] [address] Cami Bishop IG # 0.04 10e3/ul Critically high 0.00-0.03 [facility] Comment on above: Performed By: #### C BC #### Laboratory [address] [address] [address] Cami Bishop IG % 0.7 % Critically high 0.0-0.5 [facility] Comment on above: Performed By: #### C BC #### Laboratory [address] [address] [address] Cami Bishop LYMPH # 1.6 103/ul Normal 1.2-3.8 [facility] Comment on above: Performed By: #### C BC #### Laboratory [address] [place] [address] Dr. Cami Bishop Lymphocytes/100 WBC (Bld) 28.6 % Normal 20.5-60.0 [facility] Comment on above: Performed By: #### C BC #### Laboratory [address] [place] [address] Dr. Cami Bishop MANUAL DIFF REQ NO Normal [facility] Comment on above: Performed By: #### C BC #### Laboratory [address] [place] [address] Dr. Cami Bishop MCH (RBC) [Entitic mass] 31.2 pg Normal 25.9-34.0 [facility] Comment on above: Performed By: #### C BC #### Laboratory [address] [place] [address] Dr. Cami Bishop MCHC (RBC) [Mass/Vol] 35.3 g/dL Critically high 29.9-35.2 [facility] Comment on above: Performed By: #### C BC #### Laboratory [address] [place] [address] Dr. Cami Bishop MCV (RBC) [Entitic vol] 88.3 fL Normal 80.0-94.0 [facility] Comment on above: Performed By: #### C BC #### Laboratory [address] [place] [address] Dr. Cami Bishop MONO # 0.6 103/ul Normal 0.3-0.8 [facility] Comment on above: Performed By: #### C BC #### Laboratory [address] [place] [address] Dr. Cami Bishop Monocytes/100 WBC (Bld) 11.2 % Normal 1.7-12.0 [facility] Comment on above: Performed By: #### C BC #### Laboratory [address] [place] [address] Dr. Caim Bishop NEUT # 3.2 103/ul Normal 1.4-6.5 [facility] Comment on above: Performed By: #### C BC #### Laboratory [address] [place] [address] Dr. Cami Bishop Neutrophils/100 WBC (Bld) 56.6 % Normal 43.0-75.0 [facility] Comment on above: Performed By: #### C BC #### Laboratory [address] [place] [address] Dr. Cami Bishop Platelet mean volume (Bld) [Entitic vol] 9.6 fL Normal 9.5-13.5 [facility] Comment on above: Performed By: #### C BC #### Laboratory [address] [place] [address] Dr. Cami Bishop PLT 229 103/ul Normal 150-450 The Comment on above: Performed By: #### C BC #### Laboratory [address] [place] [address] Dr. Cami Bishop RBC 5.13 106/ul Normal 4.70-6.10 The Comment on above: Performed By: #### C BC #### Laboratory [address] [place] [address] Dr. Cami Bishop WBC 5.6 103/ul Normal 4.0-11.0 The Comment on above: Performed By: #### C BC #### Laboratory [address] [address] [address] Cami Bishop FREE T3on 07-04-2022 FREE T3 2.50 pg/mlL Normal 2.18-3.98 [facility] Comment on above: Performed By: #### T SH, LIPID, FT3, T4, CMP #### Laboratory [address] [address] [address] Cami Bishop GLYCOHEMOGLOBIN A1Con 2022 ADA RECOMMENDATION SEE BELOW Normal [facility] Comment on above: Result Comment: ADA RECOMMENDED LIMIT 4.0 - 6.0 ADA THERAPEUTIC TARGET < 7.0 ACTION SUGGESTED > 7.0 Performed By: #### A 1C #### Laboratory [address] [place] [address] Dr. Cami Bishop Glucose [Mass/Vol] 105 mg/dL Normal [facility] Comment on above: Performed By: #### A 1C #### Laboratory [address] [place] [address] Dr. Caim Bishop HbA1c (Bld) [Mass fraction] 5.3 % Normal 4.5-6.2 [facility] Comment on above: Performed By: #### A 1C #### Laboratory [address] [place] [address] Dr. Cami Bishop LIPID PROFILEon 07-04-2022 CHOL-HDL RATIO NORM SEE BELOW Normal [facility] Comment on above: Result Comment: 3.3 - 4.4 LOW RISK 4.4 - 7.1 AVERAGE RISK 7.1 - 11.0 MODERATE RISK >11.0 HIGH RISK Performed By: #### T SH, LIPID, FT3, T4, CMP #### Laboratory [address] [place] [address] Dr. Cami Bishop Cholesterol [Mass/Vol] 123 mg/dL Normal <=200 [facility] Comment on above: Performed By: #### T SH, LIPID, FT3, T4, CMP #### Laboratory [address] [place] [address] Dr. Cami Bishop Cholesterol in HDL [Mass/Vol] 39 mg/dL Critically low 40-60 [facility] Comment on above: Performed By: #### T SH, LIPID, FT3, T4, CMP #### Laboratory [address] [address] [address] Cami Bishop Cholesterol in LDL [Mass/Vol] 55.6 mg/dL Normal [facility] Comment on above: Performed By: #### T SH, LIPID, FT3, T4, CMP #### Laboratory [address] [address] [address] Cami Bishop Cholesterol.total/Ch olesterol in HDL [Mass ratio] 3.2 {ratio} Normal [facility] Comment on above: Performed By: #### T SH, LIPID, FT3, T4, CMP #### Laboratory [address] [address] [address] Cami Bishop HDL NORMAL > or = 60 mg/dl - LO W CARDIOVASCULAR RISK <40 mg/dl - HIGH CARDIOVASCULAR RISK Normal [facility] Comment on above: Performed By: #### T SH, LIPID, FT3, T4, CMP #### Laboratory [address] [address] [address] Cami Bishop LDL CALC NORMAL SEE BELOW Normal [facility] Comment on above: Result Comment: <100 mg/dl OPTIMAL 100 - 129 mg/dl NEAR OR ABOVE OPTIMAL 130 - 159 mg/dl BORDERLINE HIGH 160 - 189 mg/dl HIGH >190 mg/dl VERY HIGH Performed By: #### T SH, LIPID, FT3, T4, CMP #### Laboratory [address] [address] [address] Cami Bishop Triglyceride [Mass/Vol] 142 mg/dL Normal <=150 The Comment on above: Performed By: #### T SH, LIPID, FT3, T4, CMP #### Laboratory [address] [address] [address] Cami Bishop VLDL CALC 28.4 mg/dL Normal [facility] Comment on above: Performed By: #### T SH, LIPID, FT3, T4, CMP #### Laboratory [address] [address] [address] Cami Bishop PROF 14(COMP METB)on 023 Albumin [Mass/Vol] 3.8 g/dL Normal 3.4-5.0 [facility] [place] [facility] Comment on above: Performed By: #### T SH, LIPID, FT3, T4, CMP #### Laboratory [address] [place] [address] Dr. Cami Bishop Albumin/Globulin [Mass ratio] 1.3 {ratio} Normal [facility] Comment on above: Performed By: #### T SH, LIPID, FT3, T4, CMP #### Laboratory [address] [place] [address] Dr. Cami Bishop ALP [Catalytic activity/Vol] 44 U/L Critically low 46-116 [facility] Comment on above: Performed By: #### T SH, LIPID, FT3, T4, CMP #### Laboratory [address] [place] [address] Dr. Cami Bishop ALT [Catalytic activity/Vol] 36 U/L Normal 16-63 [facility] Comment on above: Performed By: #### T SH, LIPID, FT3, T4, CMP #### Laboratory [address] [place] [address] Dr. Cami Bishop Anion gap [Moles/Vol] 9.3 mmol/L Normal [facility] Comment on above: Performed By: #### T SH, LIPID, FT3, T4, CMP #### Laboratory [address] [place] [address] Dr. Cami Bishop AST [Catalytic activity/Vol] 22 U/L Normal 15-37 The Comment on above: Performed By: #### T SH, LIPID, FT3, T4, CMP #### Laboratory [address] [place] [address] Dr. Cami Bishop Bilirubin [Mass/Vol] 1.4 mg/dL Critically high 0.2-1.0 [facility] Comment on above: Performed By: #### T SH, LIPID, FT3, T4, CMP #### Laboratory [address] [place] [address] Dr. Cami Bishop Calcium [Mass/Vol] 8.9 mg/dL Normal 8.5-10.1 [facility] [place] [facility] Comment on above: Performed By: #### T SH, LIPID, FT3, T4, CMP #### Laboratory [address] [address] [address] Cami Bishop Chloride [Moles/Vol] 98 mmol/L Normal 98-107 The Comment on above: Performed By: #### T SH, LIPID, FT3, T4, CMP #### Laboratory [address] [place] [address] Dr. Cami Bishop CO2 [Moles/Vol] 32.7 mmol/L Critically high 21.0-32.0 The Comment on above: Performed By: #### T SH, LIPID, FT3, T4, CMP #### Laboratory [address] [place] [address] Dr. Cami Bishop Creatinine [Mass/Vol] 0.95 mg/dL Normal 0.70-1.30 [facility] Comment on above: Performed By: #### T SH, LIPID, FT3, T4, CMP #### Laboratory [address] [place] [address] Dr. Cami Bishop EGFR-AF INDIAN >60 Normal >=60 The [facility] Comment on above: Performed By: #### T SH, LIPID, FT3, T4, CMP #### Laboratory [address] [place] [address] Dr. Cami Bishop EGFR-NON AF INDIAN >60 Normal >=60 The Comment on above: Performed By: #### T SH, LIPID, FT3, T4, CMP #### Laboratory [address] [place] [address] Dr. Cami Bishop Globulin (S) [Mass/Vol] 2.9 g/dL Normal The Comment on above: Performed By: #### T SH, LIPID, FT3, T4, CMP #### Laboratory [address] [place] [address] Dr. Cami Bishop Glucose [Mass/Vol] 102 mg/dL Normal 74-106 [facility] [place] [facility] Comment on above: Performed By: #### T SH, LIPID, FT3, T4, CMP #### Laboratory [address] [place] [address] Dr. Cami Bishop Potassium [Moles/Vol] 4.0 mmol/L Normal 3.5-5.1 The Comment on above: Performed By: #### T SH, LIPID, FT3, T4, CMP #### Laboratory [address] [place] [address] Dr. Cami Bishop Protein [Mass/Vol] 6.7 g/dL Normal 6.4-8.2 [facility] [place] [facility] Comment on above: Performed By: #### T SH, LIPID, FT3, T4, CMP #### Laboratory [address] [place] [address] Dr. Cami Bishop Sodium [Moles/Vol] 136 mmol/L Normal 136-145 [facility] [place] [facility] Comment on above: Performed By: #### T SH, LIPID, FT3, T4, CMP #### Laboratory [address] [place] [address] Dr. Cami Bishop Urea nitrogen [Mass/Vol] 14.0 mg/dL Normal 7.0-18.0 The Comment on above: Performed By: #### T SH, LIPID, FT3, T4, CMP #### Laboratory [address] [place] [address] Dr. Cami Bishop Urea nitrogen/Creatinine [Mass ratio] 14.7 mg/mg Normal [facility] Comment on above: Performed By: #### T SH, LIPID, FT3, T4, CMP #### Laboratory [address] [place] [address] Dr. Cami Bishop T4on 07-04-2022 T4 [Mass/Vol] 6.80 ug/dL Normal 4.50-12.10 The [facility] Comment on above: Performed By: #### T SH, LIPID, FT3, T4, CMP #### Laboratory [address] [place] [address] Dr. Cami Bishop TSHon 07-04-2022 TSH 2.193 uIU/mL Normal 0.358-3.740 [facility] Comment on above: Performed By: #### T SH, LIPID, FT3, T4, CMP #### Laboratory [address] [place] [address] Dr. Cami Bihsop VITAMIN D 25 OHon 07-04-2022 VIT D 25-OH 35.1 ng/mL Normal [facility] Comment on above: Performed By: #### V ROSELINE, PSASC #### Laboratory [address] [place] [address] Dr. Cami Bishop VIT D RANGES SEE BELOW Normal [facility] Comment on above: Result Comment: <20 ng/mL Vit D deficient 20 - <30 ng/mL Vit D insufficient 30 - 100 ng/mL Vit D sufficient >100 ng/mL Potential Toxicity Performed By: #### V ROSELINE PSASC #### Laboratory [address] [place] [address] Dr. Cami Bishop ER URINE PROFILEon 2 Bilirubin Ql (U) Negative Normal NEGATIVE [facility] Comment on above: Performed By: #### T SH, LIPID, FT3, T4, CMP #### Laboratory [address] [place] [address] Dr. Cami Bishop Clarity (U) CLEAR Normal CLEAR [facility] Comment on above: Performed By: #### T SH, LIPID, FT3, T4, CMP #### Laboratory [address] [place] [address] Dr. Cami Bishop Color (U) YELLOW Normal YELLOW [facility] Comment on above: Performed By: #### T SH, LIPID, FT3, T4, CMP #### Laboratory [address] [place] [address] Dr. Cami Bishop ERUAHD A micrscopic examination will be performed if indicated. Normal The Comment on above: Performed By: #### T SH, LIPID, FT3, T4, CMP #### Laboratory [address] [place] [address] Dr. Cami Bishop Glucose Ql (U) Negative Normal NEGATIVE The [facility] Comment on above: Performed By: #### T SH, LIPID, FT3, T4, CMP #### Laboratory [address] [place], [place] [id number] Dr. Cami Bishop Hemoglobin Ql (U) Negative Normal NEGATIVE The [facility] Comment on above: Performed By: #### T SH, LIPID, FT3, T4, CMP #### Laboratory [address] [address] [address] Cami Bishop Ketones Ql (U) Negative Normal NEGATIVE [facility] Comment on above: Performed By: #### T SH, LIPID, FT3, T4, CMP #### Laboratory [address] [address] [address] Cami Bishop LEUKOCYTES Negative Normal NEGATIVE [facility] Comment on above: Performed By: #### T SH, LIPID, FT3, T4, CMP #### Laboratory [address] [place] [address] Dr. Cami Bishop Nitrite Ql (U) Negative Normal NEGATIVE [facility] Comment on above: Performed By: #### T SH, LIPID, FT3, T4, CMP #### Laboratory [address] [address] [address] Cami Bishop pH (U) 6.0 [pH] Normal 5-9 The Comment on above: Performed By: #### T SH, LIPID, FT3, T4, CMP #### Laboratory [address] [place] [address] Dr. Cami Bishop SPEC GRAVITY 1.020 Normal 1.005-<=1.025 [facility] Comment on above: Performed By: #### T SH, LIPID, FT3, T4, CMP #### Laboratory [address] [place] [address] Dr. Cami Bishop UA PROTEIN Negative Normal NEGATIVE/ TRACE The Comment on above: Performed By: #### T SH, LIPID, FT3, T4, CMP #### Laboratory [address] [place] [address] Dr. Cami Bishop UR MICRO IND NOT INDICATED Normal [facility] Comment on above: Performed By: #### T SH, LIPID, FT3, T4, CMP #### Laboratory [address] [place] [address] Dr. Cami Bishop Urobilinogen Qn (U) 1.0 {Dia'U}/dL Normal 0.2 - 1. 0 [facility] Comment on above: Performed By: #### T SH, LIPID, FT3, T4, CMP #### Laboratory [address] [id number] [address] Cami Bishop XR LSPINE 2_3 VIEWSon [...] by: DAMIR MACHADO Date: 2022-01-11 13:56 Normal [facility] Consent for COVID Vaccineon 08-06-2020 SARS-CoV-2 (COVID-19) RNA LIN+probe Ql (Unsp spec) [id number]#1. 00CD:127 Normal [facility] Consent for COVID Vaccineon 07-01-2020 SARS-CoV-2 (COVID-19) RNA LIN+probe Ql (Unsp spec) [id number]#1. 00CD:127 Normal [facility] Consent for Treatmenton 06-20 Consent for Treatment [id number]#1. 00CD:127 Normal [facility] Coding Summary.on 06-29-2020 Coding Summary. CODING DATE: 06/29/2020 FINAL [facility] STATUS: PAYOR: Medicare APC DESCRIPTION 1492 [...] CphT Date Saved: 06/29/2020 11:45 am Normal [facility] Ambulatory Clinical Summaryo n 01-26-2020 Ambulatory Clinical Summary {[id number]}CD:[id number] Normal [facility] Ambulatory Clinical Summaryo n 12-16-2019 Ambulatory Clinical Summary {[id number] }CD:[id number] Normal [facility] General Surgery Office/Clini c Noteon 12-16-2019 General Surgery Office/Clinic Note Chief Complaint post operative follow up HPI Staff 14 day post operative follow up post excisional biopsy from left occipital scalp completed at The on 12/03. Denies pain; no use of [...] History of gout Hyperlipemia Lipoma of scalp FL (myocardial infarction) Obstructive sleep apnea Pilar cyst [...] Date Status diphtheria/pertussis, acel/tetanus adult 10/26/2014 Given [facility] Comment on above: Result Comment: Elec tronically Signed By: CRISTINA MARTIN, Joseph Ledesma\Date and Time Signed: 12/16/19 13:32 EDT Operative Reporton 0 Operative Report [id number]#1.0 0CD:127 [facility] Pathology Noteon 12-08-2019 Pathology Note [id number]#1.0 0CD:127 [facility] Facesheeton 11-13-2019 Facesheet [id number] 0CD:127 [facility] Physician Referralon 020 Physician Referral [id number] CD:127 [facility] Cardiovascular Lab Reporton 03-06-[address] [facility] Patient Name: Eh [facility] García MR #: [id number] of Physician: Sheryl Stratton M.D.Division of Service Date: 03/05/2018Cardiology Birthdate: [birth year]Adult Cardiovascular Room #: 3CD [id number] [place], [place] [address]Odpyz Fax Cardiovascular Laboratory ReportFINAL IMPRESSIONS:1. Severe stenosis of the left anterior descending coronary artery, successfully treated by balloon angioplasty and Synergy drug-eluting stent placement.2. Severe stenosis of the posterior descending artery, successfully treated by balloon angioplasty and Synergy drug-eluting stent placement.3. Moderate angiographic, non-hemodynamically significant stenosis of the right coronary artery as assessed by instantaneous wave-free ratio (iFR).4. Icuc-by-jocftziv in-stent restenosis of the mid left anterior [...] rehabilitation.5. Follow up with me in the [facility] in the next 2 to 4 [...] the left radial arteryunder ultrasound guidance. A 6-Amharic Glidesheath was inserted withoutdifficulty. Coronary angiography was performed using JR4 and [id number]. After reviewing the images, it was elected to proceed with aninterventional procedure.A 6-Amharic XB3.5 guide catheter was advanced over J-wire and coaxiallyengaged into the left main coronary ostium. The Simpson pressure wire wasadvanced through the catheter with [...] wire trauma. The XB guide catheter wasremoved.A 6-Amharic JR4 guide catheter was advanced over the J-wire and coaxiallyengaged into the right coronary ostium. A new Simpson pressure wire wasadvanced through the catheter with [...] be transferred to the holding area in stablecondition.FINDDE GS:Hemodynamics:RA 13.RV 36/9, 15.PA 36/13 (25).PCWP 15.TPG [...] restenosis. Distal to a small adjacent diagonal, efdvdc-ku-qakjct left anterior descending shows a short segment [...] 03/05/2018/01:31 P/Moraima Ruelas M.D.Date Trans: 03/06/2018 12:18 P/[id number] 991cc: Romel Quijano M.D. [facility] [address] [facility] [id number] [facility] Encounters Encounter Date Encounter Type Care Provider Facility Start: 07-09-2023 End: 07-09-2023 ambulatory DAKOTA GARCIA Not Available Start: 04-22-2023 End: 04-23-2023 ambulatory Navdeep Porter MD Facility: [facility] Start: 01-07-2023 End: 01-07-2023 ambulatory MORAIMA RUELAS [facility] Start: 07-04-2022 End: 07-05-[address] ROMEL QUIJANO . Facility: Start: 01-11-2022 End: 01-11-[address] ROMEL QUIJANO . Facility: Start: 04-07-2018 End: 04-08-2018 Patient encounter procedure DEFAULT PHYSICIAN Facility:[facility] Start: 03-05-2018 End: 03-06-2018 Patient encounter procedure MORAIMA RUELAS Facility:[facility] Procedures Date Procedure Procedure Detail Performing Clinician Start: 07-04-[address] DESIRAE QUIJANO . Comment on above: Performed By: #### V ITAD, PSASC #### Laboratory [address] [place] [address] Dr. Cami Bishop Start: 03-05-2018 R HRT [facility] ANGIO MORAIMA RUELAS Payers Date Payer Category Payer Medicare 1958 Private Health Insurance [id number] 1945 Unknown [id number] 2.16.8 [id number] 1945 Unknown [id number] 2.16.8 [id number] 1945 Unknown [id number] 2.16.84 [id number] 1946 Unknown [id number] 2.16.84 [id number] 1946 Unknown [id number] 2.16. [id number] 1946 Unknown [id number] 2.16.84 [id number] Unknown Progress note 01-07-2023 Note Date & Type Note Facility 01-07-2023 Note [facility] Cardiology Clinic Note Chief Complaint: Patient [...] and in the intensive care unit in [facility]. She had a bowel perforation with peritonitis. She required surgery. She is being placed on dialysis today. Cardiology ROS: Review of Systems Cardiovascular: Positive for dyspnea on exertion. Musculoskeletal: Positive for arthritis and joint pain. All other systems reviewed and are negative. Past Medical History He has a past medical history of Hyperlipidemia, Hypertension, Myocardial infarction ([facility]/HCC), and Sleep apnea. Surgical History He has [...] assessed by instantaneous wave-free ratio (iFR). 4. Ahsc-yg-eeuxrtzi in-stent restenosis of the mid left anterior [...] 5. Follow up with me in the [facility] in the next 2 to 4 [...] and reported i (more content not included)... [facility] Summary Purpose Family History No Family History [...] and content) DATE CREATED AUTHOR 04/28/2018 [facility] DATE CREATED AUTHOR AUTHOR'S ORGANIZ ATION 10/26/2020 [facility] DATE CREATED AUTHOR AUTHOR'S ORGANIZ ATION 07/09/2022 [facility] DATE CREATED AUTHOR AUTHOR'S ORGANIZ ATION 01/07/2023 [facility] DATE CREATED AUTHOR AUTHOR'S ORGANIZ ATION 05/03/2023 [facility] DATE CREATED AUTHOR AUTHOR'S GAUDENCIO AGUILA 07/16/2023 [facility] FOR RECORDS PERTAINING TO PATIENTS WHO [...] BE BASED ON THE PRIMARY CLINICAL RECORDS. [facility]. provides no warranty or guarantee of the accuracy or completeness of information in this document.
== END 2023-09-09 10:21 | disposition home or self-care (01) ==
LOC: NM 10:20
PROVIDERS: PCP Family Medicine; Visit Provider Internal Medicine Interventional Cardiology
DX: Z01.810 Encounter for preprocedural cardiovascular examination (principal)
CPT/HCPCS: 78452; A9500

== ENCOUNTER 2023-09-11 08:28 | Outpatient (OUT) | payer MEDICARE, SELFPAY ==
--- NOTE | 2023-09-11 | PCN_ITS ---
CARDIAC STRESS TEST Requesting Physician: Moraima Espitia M.D. Procedure Date: 09/11/2023 PERFORMING PROVIDER: Tacos Murphy M.D. INDICATION: Pre-op clearance. STRESS TEST PROTOCOL: Lexiscan myocardial perfusion imaging. Resting heart rate: 71 Max heart rate: 93 Resting blood pressure: 134/68 Maximum blood pressure: 134/68 ST changes: No significant ST changes meeting the criteria for ischemia. Symptoms: No chest pain reported. Patient had dizziness after Lexiscan injection, which resolved within two minutes. Arrhythmias: Frequent PVCs. CONCLUSION: 1. Resting EKG is abnormal with sinus rhythm with sinus arrhythmia and frequent PVCs. 2. There were no definite EKG changes meeting the criteria for ischemia post Lexiscan infusion. 3. Please refer to separately interpreted and reported nuclear myocardial perfusion imaging. MTDD
--- OUTSIDE RECORDS SUMMARY | 2023-09-11 08:44 | XMS_ITS | CCD ---
Author Organization [facility] Care Team Providers Care Farrowing Manager Name Role Phone PHYSICIAN, DEFAULT Unavailable Unavailable PHYSICIAN, DEFAULT Unavailable Unavailable HOY, ROMEL Unavailable Unavailable [place]HAWY, EHAB A Unavailable Unavailable [place], EHAB A Unavailable Unavailable HOY, ROMEL Unavailable Unavailable HOY, ROMEL Unavailable Unavailable [place] Unavailable Unavailable [place], EHAB A Unavailable Unavailable [...] Date of Onset Reaction(s) Facility (1 source) 96846,00; Translations: [85395,00] Propensity to adverse reactions (disorder) 9 [facility] Repository (2 sources) levoFLOXacin; Translations: [LEVOFLOXACIN] Drug Allergy 3 [facility] Repository Problems Active Problems Problem Classification Problem Date Documented Date Episodic/Chronic Complication of device; implant or graft (1 source) Stenosis of coronary artery stent, initial encounter; Translations: [STENOSIS OF CORONARY ARTERY STENT, INITIAL ENCOUNTER] Onset: 03-05-2018 Coronary atherosclerosis and other heart disease (5 sources) Atherosclerotic heart disease of [place] coronary artery with unstable angina pectoris; Translations: [...] Onset: 07-09-2022 Episodic Other aftercare (1 source) management planner (current) use of 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/antip latelets; Translations: [ASSISTED (CURRENT) USE OF ANTITHROMBOTICS/ANTIP LATELETS] Onset: 03-05-2018 Episodic Other aftercare (1 source) group home (current) use of aspirin; Translations: [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] Onset: 03-05-2018 Episodic Other aftercare (1 source) 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; Translations: [OTH ASSISTED CURRENT DRUG THERAPY] Onset: 07-09-2022 Episodic Other aftercare (1 source) management planner (current) use of oral hypoglycemic drugs; Translations: [ASSISTED (CURRENT) USE OF ORAL HYPOGLYCEMIC DRUGS] Onset: [...] Range Facility Office Visiton 01-07-2023 Follow-up visit [id number] Sonia Plasencia 1945 M Date Provider Department Center 01/07/2023 MORAIMA MORRISON CARD [facility] No family history on file Level of Service:25256 [place] OFFICE/OUTPATIENT ESTABLISHED LOW MDM 20-29 MIN Normal [facility] CBC AUTO DIFFon 07-04-2022 BASO # 0.1 103/ul Normal 0.0-0.1 [facility] Comment on above: Performed By: #### C BC #### [facility] [address] [address] [address] Cami Bishop Basophils/100 WBC (Bld) 0.9 % Normal 0.2-2.0 [facility] Comment on above: Performed By: #### C BC #### [facility] [address] [address] [address] Cami Bishop EO # 0.1 103/ul Normal 0.0-0.7 [facility] Comment on above: Performed By: #### C BC #### [facility] [address] [address] [address] Cami Bishop Eosinophils/100 WBC (Bld) 2.0 % Normal 0.9-7.0 [facility] Comment on above: Performed By: #### C BC #### [facility] [address] [address] [address] Cami Bishop Erythrocyte distribution width (RBC) [Ratio] 12.2 % Normal 11.0-15.0 [facility] Comment on above: Performed By: #### C BC #### [facility] [address] [address] [address] Cami Bishop Hematocrit (Bld) [Volume fraction] 45.3 % Normal 42.0-54.0 [facility] Comment on above: Performed By: #### C BC #### [facility] [address] [address] [address] Cami Bishop Hemoglobin (Bld) [Mass/Vol] 16.0 g/dL Normal 14.0-18.0 [facility] Comment on above: Performed By: #### C BC #### [facility] [address] [address] [address] Cami Bishop IG # 0.04 10e3/ul Critically high 0.00-0.03 [facility] Comment on above: Performed By: #### C BC #### [facility] [address] [address] [address] Cami Bishop IG % 0.7 % Critically high 0.0-0.5 [facility] Comment on above: Performed By: #### C BC #### [facility] [address] [address] [address] Cami Bishop LYMPH # 1.6 103/ul Normal 1.2-3.8 [facility] Comment on above: Performed By: #### C BC #### [facility] [address] [place] [address] Dr. Cami Bishop Lymphocytes/100 WBC (Bld) 28.6 % Normal 20.5-60.0 [facility] Comment on above: Performed By: #### C BC #### [facility] [address] [place] [address] Dr. Cami Bishop MANUAL DIFF REQ NO Normal [facility] Comment on above: Performed By: #### C BC #### [facility] [address] [place] [address] Dr. Cami Bishop MCH (RBC) [Entitic mass] 31.2 pg Normal 25.9-34.0 [facility] Comment on above: Performed By: #### C BC #### [facility] [address] [place] [address] Dr. Cami Bishop MCHC (RBC) [Mass/Vol] 35.3 g/dL Critically high 29.9-35.2 [facility] Comment on above: Performed By: #### C BC #### [facility] [address] [place] [address] Dr. Cami Bishop MCV (RBC) [Entitic vol] 88.3 fL Normal 80.0-94.0 [facility] Comment on above: Performed By: #### C BC #### [facility] [address] [place] [address] Dr. Cami Bishop MONO # 0.6 103/ul Normal 0.3-0.8 [facility] Comment on above: Performed By: #### C BC #### [facility] [address] [place] [address] Dr. Cami Bsihop Monocytes/100 WBC (Bld) 11.2 % Normal 1.7-12.0 [facility] Comment on above: Performed By: #### C BC #### [facility] [address] [place] [address] Dr. Cami Bishop NEUT # 3.2 103/ul Normal 1.4-6.5 [facility] Comment on above: Performed By: #### C BC #### [facility] [address] [place] [address] Dr. Cami Bishop Neutrophils/100 WBC (Bld) 56.6 % Normal 43.0-75.0 [facility] Comment on above: Performed By: #### C BC #### [facility] [address] [place] [address] Dr. Cami Bishop Platelet mean volume (Bld) [Entitic vol] 9.6 fL Normal 9.5-13.5 [facility] Comment on above: Performed By: #### C BC #### [facility] [address] [place] [address] Dr. Cami Bishop PLT 229 103/ul Normal 150-450 [facility] Comment on above: Performed By: #### C BC #### [facility] [address] [place] [address] Dr. Cami Bishop RBC 5.13 106/ul Normal 4.70-6.10 [facility] Comment on above: Performed By: #### C BC #### [facility] [address] [place] [address] Dr. Cami Bishop WBC 5.6 103/ul Normal 4.0-11.0 [facility] Comment on above: Performed By: #### C BC #### [facility] [address] [address] [address] Cami Bishop FREE T3on 07-04-2022 FREE T3 2.50 pg/mlL Normal 2.18-3.98 [facility] Comment on above: Performed By: #### T SH, LIPID, FT3, T4, CMP #### [facility] [address] [address] [address] Cami Bishop GLYCOHEMOGLOBIN A1Con 2022 ADA RECOMMENDATION SEE BELOW Normal [facility] Comment on above: Result Comment: ADA RECOMMENDED LIMIT 4.0 - 6.0 ADA THERAPEUTIC TARGET < 7.0 ACTION SUGGESTED > 7.0 Performed By: #### A 1C #### [facility] [address] [place] [address] Dr. Cami Bishop Glucose [Mass/Vol] 105 mg/dL Normal [facility] Comment on above: Performed By: #### A 1C #### [facility] [address] [place] [address] Dr. Cami Bishop HbA1c (Bld) [Mass fraction] 5.3 % Normal 4.5-6.2 [facility] Comment on above: Performed By: #### A 1C #### [facility] [address] [place] [address] Dr. Cami Bishop LIPID PROFILEon 07-04-2022 CHOL-HDL RATIO NORM SEE BELOW Normal [facility] Comment on above: Result Comment: 3.3 - 4.4 LOW RISK 4.4 - 7.1 AVERAGE RISK 7.1 - 11.0 MODERATE RISK >11.0 HIGH RISK Performed By: #### T SH, LIPID, FT3, T4, CMP #### [facility] [address] [place] [address] Dr. Cami Bishop Cholesterol [Mass/Vol] 123 mg/dL Normal <=200 [facility] Comment on above: Performed By: #### T SH, LIPID, FT3, T4, CMP #### [facility] [address] [place] [address] Dr. Cami Bishop Cholesterol in HDL [Mass/Vol] 39 mg/dL Critically low 40-60 [facility] Comment on above: Performed By: #### T SH, LIPID, FT3, T4, CMP #### [facility] [address] [address] [address] Cami Bishop Cholesterol in LDL [Mass/Vol] 55.6 mg/dL Normal [facility] Comment on above: Performed By: #### T SH, LIPID, FT3, T4, CMP #### [facility] [address] [address] [address] Cami Bishop Cholesterol.total/Ch olesterol in HDL [Mass ratio] 3.2 {ratio} Normal [facility] Comment on above: Performed By: #### T SH, LIPID, FT3, T4, CMP #### [facility] [address] [address] [address] Cami Bishop HDL NORMAL > or = 60 mg/dl - LO W CARDIOVASCULAR RISK <40 mg/dl - HIGH CARDIOVASCULAR RISK Normal [facility] Comment on above: Performed By: #### T SH, LIPID, FT3, T4, CMP #### [facility] [address] [address] [address] Cami Bishop LDL CALC NORMAL SEE BELOW Normal [facility] Comment on above: Result Comment: <100 mg/dl OPTIMAL 100 - 129 mg/dl NEAR OR ABOVE OPTIMAL 130 - 159 mg/dl BORDERLINE HIGH 160 - 189 mg/dl HIGH >190 mg/dl VERY HIGH Performed By: #### T SH, LIPID, FT3, T4, CMP #### [facility] [address] [address] [address] Cami Bishop Triglyceride [Mass/Vol] 142 mg/dL Normal <=150 [facility] Comment on above: Performed By: #### T SH, LIPID, FT3, T4, CMP #### [facility] [address] [address] [address] Cami Bishop VLDL CALC 28.4 mg/dL Normal [facility] Comment on above: Performed By: #### T SH, LIPID, FT3, T4, CMP #### [facility] [address] [address] [address] Cami Bishop PROF 14(COMP METB)on 023 Albumin [Mass/Vol] 3.8 g/dL Normal 3.4-5.0 [facility] Comment on above: Performed By: #### T SH, LIPID, FT3, T4, CMP #### [facility] [address] [place] [address] Dr. Cami Bishop Albumin/Globulin [Mass ratio] 1.3 {ratio} Normal [facility] Comment on above: Performed By: #### T SH, LIPID, FT3, T4, CMP #### [facility] [address] [place] [address] Dr. Cami Bishop ALP [Catalytic activity/Vol] 44 U/L Critically low 46-116 [facility] Comment on above: Performed By: #### T SH, LIPID, FT3, T4, CMP #### [facility] [address] [place] [address] Dr. Cami Bishop ALT [Catalytic activity/Vol] 36 U/L Normal 16-63 [facility] Comment on above: Performed By: #### T SH, LIPID, FT3, T4, CMP #### [facility] [address] [place] [address] Dr. Cami Bishop Anion gap [Moles/Vol] 9.3 mmol/L Normal [facility] Comment on above: Performed By: #### T SH, LIPID, FT3, T4, CMP #### [facility] [address] [place] [address] Dr. Cami Bishop AST [Catalytic activity/Vol] 22 U/L Normal 15-37 [facility] Comment on above: Performed By: #### T SH, LIPID, FT3, T4, CMP #### [facility] [address] [place] [address] Dr. Cami Bishop Bilirubin [Mass/Vol] 1.4 mg/dL Critically high 0.2-1.0 [facility] Comment on above: Performed By: #### T SH, LIPID, FT3, T4, CMP #### [facility] [address] [place] [address] Dr. Cami Bishop Calcium [Mass/Vol] 8.9 mg/dL Normal 8.5-10.1 [facility] Comment on above: Performed By: #### T SH, LIPID, FT3, T4, CMP #### [facility] [address] [address] [address] Cami Bishop Chloride [Moles/Vol] 98 mmol/L Normal 98-107 [facility] Comment on above: Performed By: #### T SH, LIPID, FT3, T4, CMP #### [facility] [address] [place] [address] Dr. Cami Bishop CO2 [Moles/Vol] 32.7 mmol/L Critically high 21.0-32.0 [facility] Comment on above: Performed By: #### T SH, LIPID, FT3, T4, CMP #### [facility] [address] [place] [address] Dr. Cami Bishop Creatinine [Mass/Vol] 0.95 mg/dL Normal 0.70-1.30 [facility] Comment on above: Performed By: #### T SH, LIPID, FT3, T4, CMP #### [facility] [address] [place] [address] Dr. Cami Bishop EGFR-AF SAMMARINESE >60 Normal >=60 [facility] Comment on above: Performed By: #### T SH, LIPID, FT3, T4, CMP #### [facility] [address] [place] [address] Dr. Cami Bishop EGFR-NON AF SAMMARINESE >60 Normal >=60 [facility] Comment on above: Performed By: #### T SH, LIPID, FT3, T4, CMP #### [facility] [address] [place] [address] Dr. Cami Bishop Globulin (S) [Mass/Vol] 2.9 g/dL Normal [facility] Comment on above: Performed By: #### T SH, LIPID, FT3, T4, CMP #### [facility] [address] [place] [address] Dr. Cami Bishop Glucose [Mass/Vol] 102 mg/dL Normal 74-106 [facility] Comment on above: Performed By: #### T SH, LIPID, FT3, T4, CMP #### [facility] [address] [place] [address] Dr. Cami Bishop Potassium [Moles/Vol] 4.0 mmol/L Normal 3.5-5.1 [facility] Comment on above: Performed By: #### T SH, LIPID, FT3, T4, CMP #### [facility] [address] [place] [address] Dr. Cami Bishop Protein [Mass/Vol] 6.7 g/dL Normal 6.4-8.2 [facility] Comment on above: Performed By: #### T SH, LIPID, FT3, T4, CMP #### [facility] [address] [place] [address] Dr. Cami Bishop Sodium [Moles/Vol] 136 mmol/L Normal 136-145 [facility] Comment on above: Performed By: #### T SH, LIPID, FT3, T4, CMP #### [facility] [address] [place] [address] Dr. Cami Bishop Urea nitrogen [Mass/Vol] 14.0 mg/dL Normal 7.0-18.0 [facility] Comment on above: Performed By: #### T SH, LIPID, FT3, T4, CMP #### [facility] [address] [place] [address] Dr. Cami Bishop Urea nitrogen/Creatinine [Mass ratio] 14.7 mg/mg Normal [facility] Comment on above: Performed By: #### T SH, LIPID, FT3, T4, CMP #### [facility] [address] [place] [address] Dr. Cami Bishop T4on 07-04-2022 T4 [Mass/Vol] 6.80 ug/dL Normal 4.50-12.[address] [facility] Comment on above: Performed By: #### T SH, LIPID, FT3, T4, CMP #### [facility] [address] [place] [address] Dr. Cami Bishop TSHon 07-04-2022 TSH 2.193 uIU/mL Normal 0.358-3.[address] [facility] Comment on above: Performed By: #### T SH, LIPID, FT3, T4, CMP #### [facility] [address] [place] [address] Dr. Cami Bishop VITAMIN D 25 OHon 07-04-2022 VIT D 25-OH 35.1 ng/mL Normal [facility] Comment on above: Performed By: #### V ROSELINE, PSASC #### [facility] [address] [place] [address] Dr. Cami Bishop VIT D RANGES SEE BELOW Normal [facility] Comment on above: Result Comment: <20 ng/mL Vit D deficient 20 - <30 ng/mL Vit D insufficient 30 - 100 ng/mL Vit D sufficient >100 ng/mL Potential Toxicity Performed By: #### V ROSELINE PSASC #### [facility] [address] [place] [address] Dr. Cami Bishop ER URINE PROFILEon 2 Bilirubin Ql (U) Negative Normal NEGATIVE [facility] Comment on above: Performed By: #### T SH, LIPID, FT3, T4, CMP #### [facility] [address] [place] [address] Dr. Cami Bishop Clarity (U) CLEAR Normal CLEAR [facility] Comment on above: Performed By: #### T SH, LIPID, FT3, T4, CMP #### [facility] [address] [place] [address] Dr. Cami Bishop Color (U) YELLOW Normal YELLOW [facility] Comment on above: Performed By: #### T SH, LIPID, FT3, T4, CMP #### [facility] [address] [place] [address] Dr. Cami Bishop ERUAHD A micrscopic examination will be performed if indicated. Normal [facility] Comment on above: Performed By: #### T SH, LIPID, FT3, T4, CMP #### [facility] [address] [place] [address] Dr. Cami Bishop Glucose Ql (U) Negative Normal NEGATIVE [facility] Comment on above: Performed By: #### T SH, LIPID, FT3, T4, CMP #### [facility] [address] [place], [place] [id number] Dr. Cami Bishop Hemoglobin Ql (U) Negative Normal NEGATIVE [facility] Comment on above: Performed By: #### T SH, LIPID, FT3, T4, CMP #### [facility] [address] [address] [address] aCmi Bishop Ketones Ql (U) Negative Normal NEGATIVE [facility] Comment on above: Performed By: #### T SH, LIPID, FT3, T4, CMP #### [facility] [address] [address] [address] Cami Bishop LEUKOCYTES Negative Normal NEGATIVE [facility] Comment on above: Performed By: #### T SH, LIPID, FT3, T4, CMP #### [facility] [address] [place] [address] Dr. Cami Bishop Nitrite Ql (U) Negative Normal NEGATIVE [facility] Comment on above: Performed By: #### T SH, LIPID, FT3, T4, CMP #### [facility] [address] [address] [address] Cami Bishop pH (U) 6.0 [pH] Normal 5-9 [facility] Comment on above: Performed By: #### T SH, LIPID, FT3, T4, CMP #### [facility] [address] [place] [address] Dr. Cami Bishop SPEC GRAVITY 1.020 Normal 1.005-<=1.025 [facility] Comment on above: Performed By: #### T SH, LIPID, FT3, T4, CMP #### [facility] [address] [place] [address] Dr. Cami Bishop UA PROTEIN Negative Normal NEGATIVE/ TRACE [facility] Comment on above: Performed By: #### T SH, LIPID, FT3, T4, CMP #### [facility] [address] [place] [address] Dr. Cami Bishop UR MICRO IND NOT INDICATED Normal [facility] Comment on above: Performed By: #### T SH, LIPID, FT3, T4, CMP #### [facility] [address] [place] [address] Dr. Cami Bishop Urobilinogen Qn (U) 1.0 {Dia'U}/dL Normal 0.2 - 1. 0 [facility] Comment on above: Performed By: #### T SH, LIPID, FT3, T4, CMP #### [facility] [address] [id number] Cami Bishop XR LSPINE 2_3 VIEWSon [...] by: DAMIR MACHADO Date: 2022-01-11 13:56 Normal [facility] Consent for COVID Vaccineon 08-06-2020 SARS-CoV-2 (COVID-19) RNA LIN+probe Ql (Unsp spec) [id number]#1. 00CD:127 Normal [facility] Consent for COVID Vaccineon 07-01-2020 SARS-CoV-2 (COVID-19) RNA LIN+probe Ql (Unsp spec) [id number]. 00CD:127 Normal [facility] Consent for Treatmenton 06-20 Consent for Treatment [id number]#1. 00CD:127 Normal [facility] Coding Summary.on 06-29-2020 Coding Summary. CODING DATE: 06/29/[address] [facility] STATUS: PAYOR: Medicare APC DESCRIPTION [id number] [...] CphT Date Saved: 06/29/2020 11:45 am Normal [facility] Ambulatory Clinical Summaryo n 01-26-2020 Ambulatory Clinical Summary {[id number]}CD:[id number] Normal [facility] Ambulatory Clinical Summaryo n 12-16-2019 Ambulatory Clinical Summary {[id number] }CD:[id number] Normal [facility] General Surgery Office/Clini c Noteon 12-16-2019 General Surgery Office/Clinic Note Chief Complaint post operative follow up HPI Staff 14 day post operative follow up post excisional biopsy from left occipital scalp completed at [facility] on 12/03. Denies pain; no use of [...] History of gout Hyperlipemia Lipoma of scalp W[place] (myocardial infarction) Obstructive sleep apnea Pilar cyst [...] diphtheria/pertussis, acel/tetanus adult 10/26/2014 Given [facility] Comment on above: Result Comment: Elec tronically Signed By: CRISTINA MARTIN, Joseph Ledesma\Date and Time Signed: 12/16/19 13:32 EDT Operative Reporton 0 Operative Report [id number]#1.0 0CD:127 [facility] Pathology Noteon 12-08-2019 Pathology Note [id number]#1.0 0CD:127 [facility] Facesheeton 11-13-2019 Facesheet [id number]#1.0 0CD:127 [facility] Physician Referralon 020 Physician Referral [id number]#1.00 CD:127 [facility] Cardiovascular Lab Reporton 03-06-2018 Cardiovascular Lab Report [facility] Patient Name: Eh [facility] García MR #: [id number] of Physician: Sheryl Stratton M.D.Division of Service Date: 03/05/2018Cardiology Birthdate: [birth year]Adult Cardiovascular Room #: 3CD [id number] [address] [place], [place] [address]Vvnxu Fax Cardiovascular Laboratory ReportFINAL IMPRESSIONS:1. Severe stenosis of the left anterior descending coronary artery, successfully treated by balloon angioplasty and Synergy drug-eluting stent placement.2. Severe stenosis of the posterior descending artery, successfully treated by balloon angioplasty and Synergy drug-eluting stent placement.3. Moderate angiographic, non-hemodynamically significant stenosis of the right coronary artery as assessed by instantaneous wave-free ratio (iFR).4. Gxsy-os-yxjhdnff in-stent restenosis of the mid left anterior [...] rehabilitation.5. Follow up with me in the [facility] in the next 2 to 4 [...] Coronary angiography was performed using JR4 and [id number]. After reviewing the images, it was elected to proceed with aninterventional procedure.A 6-Amharic XB3.5 guide catheter was advanced over J-wire and coaxiallyengaged into the left main coronary ostium. The [place] pressure wire wasadvanced through the catheter with [...] into the right coronary ostium. A new [place] pressure wire wasadvanced through the catheter with [...] be transferred to the holding area in stablecondition.FINDNY GS:Hemodynamics:RA 13.RV 36/9, 15.PA 36/13 (25).PCWP 15.TPG [...] restenosis. Distal to a small adjacent diagonal, idqhlz-hz-xltnsj left anterior descending shows a short segment [...] 03/05/2018/01:31 P/Moraima Ruelas M.D.Date Trans: 03/06/2018 12:18 P/mmoDN_JN:[id number] 991cc: Romel Quijano M.D. [facility] [address] [facility] [place] [facility] [id number] [facility] [facility] Encounters Encounter Date Encounter Type Care Provider Facility Start: 07-09-2023 End: 07-09-2023 ambulatory DAKOTA GARCIA Not Available Start: 04-22-2023 End: 04-23-2023 ambulatory Navdeep Porter MD Facility: [facility] Start: 01-07-2023 End: 01-07-2023 ambulatory MORAIMA RUELAS [facility] Start: 07-04-2022 End: 07-05-[address] ROMEL QUIJANO . Facility: Start: 01-11-2022 End: 01-11-[address] ROMEL QUIJANO . Facility: Start: 04-07-2018 End: 04-08-2018 Patient encounter procedure DEFAULT PHYSICIAN Facility:[facility] Start: 03-05-2018 End: 03-06-2018 Patient encounter procedure MORAIMA RUELAS Facility:[facility] Procedures Date Procedure Procedure Detail Performing Clinician Start: 07-04-[address] DESIRAE QUIJANO . Comment on above: Performed By: #### V ITAD, PSASC #### [facility] [address] [place] [address] Dr. Cami Bishop Start: 03-05-2018 R HRT CORONARY ARTERY ANGIO MORAIMA RUELAS Payers Date Payer Category Payer Medicare 1958 Private Health Insurance [id number] 1945 Unknown [id number] [id number] 1945 Unknown [id number] 1945 Unknown [id number] 2.16.84 [id number] 1945 Unknown [id number] 2.16.84 [id number] 1945 Unknown [id number] 2.16. [id number] 1945 Unknown [id number] 2.16.84 [id number] Unknown Progress note 01-07-2023 Note Date & Type Note Facility 01-07-2023 Note [facility] Cardiology Clinic Note Chief Complaint: Patient [...] and in the intensive care unit in [facility]. She had a bowel perforation with peritonitis. She required surgery. She is being placed on dialysis today. Cardiology ROS: Review of Systems Cardiovascular: Positive for dyspnea on exertion. Musculoskeletal: Positive for arthritis and joint pain. All other systems reviewed and are negative. Past Medical History He has a past medical history of Hyperlipidemia, Hypertension, Myocardial infarction ([facility]/HCC), and Sleep apnea. Surgical History He has [...] assessed by instantaneous wave-free ratio (iFR). 4. Pprd-hc-kycupgre in-stent restenosis of the mid left anterior [...] 5. Follow up with me in the [facility] in the next 2 to 4 [...] not included)... [facility] Summary Purpose Family History No Family History [...] and content) DATE CREATED AUTHOR 04/28/2018 [facility] DATE CREATED AUTHOR AUTHOR'S ORGANIZ ATION 10/26/2020 [facility] DATE CREATED AUTHOR AUTHOR'S ORGANIZ ATION 07/09/2022 [facility] DATE CREATED AUTHOR AUTHOR'S ORGANIZ ATION 01/07/2023 [facility] DATE CREATED AUTHOR AUTHOR'S ORGANIZ ATION 05/03/2023 [facility] DATE CREATED AUTHOR AUTHOR'S GAUDENCIO AGUILA 07/16/2023 [facility] FOR RECORDS PERTAINING TO PATIENTS WHO [...] BE BASED ON THE PRIMARY CLINICAL RECORDS. [facility]. provides no warranty or guarantee of the accuracy or completeness of information in this document.
[2023-09-11] MEDS: REGADENOSON 0.4 MG/5 ML SYRINGE 0.400000000000000022 MG IV (09:10)
== END 2023-09-11 08:29 | disposition home or self-care (01) ==
PROVIDERS: PCP Family Medicine; Visit Provider Internal Medicine Interventional Cardiology
DX: Z01.810 Encounter for preprocedural cardiovascular examination (principal)
CPT/HCPCS: 93017; J2785

== ENCOUNTER 2023-09-12 10:15 | Outpatient (OUT) | payer MEDICARE, SELFPAY ==
--- NOTE | 2023-09-12 10:18 | US_ITS ---
[address] [address] Patient Name: SONIA PLASENCIA MRN: [id number] date: 1945 Sex: M Assigned Patient Location: US Current Patient Location: LAB Accession/Order Number: [id number] Exam Date: 09/12/2023 10:20 Report Date: 09/12/2023 11:20 At the request of: ROMEL FRANCO Procedure: US right upper quadrant EXAMINATION: US right upper quadrant HISTORY: Other Specified Abnormal Findings On Blood Chemistry COMPARISON: No relevant comparison available. TECHNIQUE: Transabdominal evaluation of the right upper quadrant. FINDINGS: LIVER: Slightly increased echogenicity suggestive of fatty infiltration. No suspicious lesions. PORTAL VEIN: Duplex Doppler demonstrates normal hepatopetal flow pattern with flow velocity averaging 29 cm/s. GALLBLADDER: Cholecystectomy. BILIARY: No abnormal dilation or stones. Common bile duct diameter is within normal limits. PANCREASE: [Pain due to overlying bowel gas. No visible mass, abnormal atrophy, or duct dilation. KIDNEY: No hydronephrosis. No visible mass or stones. Size: 11.1 x 5.6 x 6.9 cm. US/US right upper quadrant IMPRESSION: 1. Limited examination due to patient body habitus. 2. Suspect mild fatty infiltration of the liver. 3. Prior cholecystectomy. Electronically authenticated by: DAMIR MACHADO Date: 09/12/2023 11:20
--- OUTSIDE RECORDS SUMMARY | 2023-09-12 10:40 | XMS_ITS | CCD ---
Author Organization [facility] Care Team Providers Care Aquaculturist Name Role Phone PHYSICIAN, DEFAULT Unavailable Unavailable PHYSICIAN, DEFAULT Unavailable Unavailable HOY, ROMEL Unavailable Unavailable ELTAHAWY, EHAB A Unavailable Unavailable [place], EHAB A Unavailable Unavailable HOY, ROMEL Unavailable Unavailable HOY, ROMEL Unavailable Unavailable [place] Unavailable Unavailable [place], EHAB A Unavailable Unavailable [...] Date of Onset Reaction(s) Facility (1 source) 66874,00; Translations: [86090,00] Propensity to adverse reactions (disorder) [address] [facility] Repository (2 sources) levoFLOXacin; Translations: [LEVOFLOXACIN] Drug Allergy 3 [facility] Repository Problems Active Problems Problem Classification Problem Date Documented Date Episodic/Chronic Complication of device; implant or graft (1 source) Stenosis of coronary artery stent, initial encounter; Translations: [STENOSIS OF CORONARY ARTERY STENT, INITIAL ENCOUNTER] Onset: 03-05-2018 Coronary atherosclerosis and other heart disease (5 sources) Atherosclerotic heart disease of [place] coronary artery with unstable angina pectoris; Translations: [...] Onset: 07-09-2022 Episodic Other aftercare (1 source) 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; Translations: [[facility] (CURRENT) USE OF ANTITHROMBOTICS/ANTIP LATELETS] Onset: 03-05-2018 Episodic Other aftercare (1 source) [facility] (current) use of aspirin; Translations: [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] Onset: 03-05-2018 Episodic Other aftercare (1 source) 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; Translations: [OTH [facility] CURRENT DRUG THERAPY] Onset: 07-09-2022 Episodic Other aftercare (1 source) 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 CBC AUTO DIFFon 07-04-2022 BASO # 0.1 103/ul Normal 0.0-0.1 [facility] Comment on above: Performed By: #### C BC #### [facility] [address] [address] [address] Cami Bishop Basophils/100 WBC (Bld) 0.9 % Normal 0.2-2.0 [facility] Comment on above: Performed By: #### C BC #### [facility] [address] [address] [address] Cami Bishop EO # 0.1 103/ul Normal 0.0-0.7 [facility] Comment on above: Performed By: #### C BC #### [facility] [address] [address] [address] Cami Bishop Eosinophils/100 WBC (Bld) 2.0 % Normal 0.9-7.0 [facility] Comment on above: Performed By: #### C BC #### [facility] [address] [address] [address] Cami Bishop Erythrocyte distribution width (RBC) [Ratio] 12.2 % Normal 11.0-15.0 [facility] Comment on above: Performed By: #### C BC #### [facility] [address] [address] [address] Cami Bishop Hematocrit (Bld) [Volume fraction] 45.3 % Normal 42.0-54.0 [facility] Comment on above: Performed By: #### C BC #### [facility] [address] [address] [address] Cami Bishop Hemoglobin (Bld) [Mass/Vol] 16.0 g/dL Normal 14.0-18.0 [facility] Comment on above: Performed By: #### C BC #### [facility] [address] [address] [address] Cami Bishop IG # 0.04 10e3/ul Critically high 0.00-0.03 [facility] Comment on above: Performed By: #### C BC #### [facility] [address] [address] [address] Cami Bishop IG % 0.7 % Critically high 0.0-0.5 [facility] Comment on above: Performed By: #### C BC #### [facility] [address] [address] [address] Cami Bishop LYMPH # 1.6 103/ul Normal 1.2-3.8 [facility] Comment on above: Performed By: #### C BC #### [facility] [address] [place] [address] Dr. Cami Bishop Lymphocytes/100 WBC (Bld) 28.6 % Normal 20.5-60.0 [facility] Comment on above: Performed By: #### C BC #### [facility] [address] [place] [address] Dr. Cami Bishop MANUAL DIFF REQ NO Normal [facility] Comment on above: Performed By: #### C BC #### [facility] [address] [place] [address] Dr. Cami Bishop MCH (RBC) [Entitic mass] 31.2 pg Normal 25.9-34.0 [facility] Comment on above: Performed By: #### C BC #### [facility] [address] [place] [address] Dr. Cami Bishop MCHC (RBC) [Mass/Vol] 35.3 g/dL Critically high 29.9-35.2 [facility] Comment on above: Performed By: #### C BC #### [facility] [address] [place] [address] Dr. Cami Bishop MCV (RBC) [Entitic vol] 88.3 fL Normal 80.0-94.0 [facility] Comment on above: Performed By: #### C BC #### [facility] [address] [place] [address] Dr. Cami Bishop MONO # 0.6 103/ul Normal 0.3-0.8 [facility] Comment on above: Performed By: #### C BC #### [facility] [address] [place] [address] Dr. Cami Bishop Monocytes/100 WBC (Bld) 11.2 % Normal 1.7-12.0 [facility] Comment on above: Performed By: #### C BC #### [facility] [address] [place] [address] Dr. Cami Bishop NEUT # 3.2 103/ul Normal 1.4-6.5 [facility] Comment on above: Performed By: #### C BC #### [facility] [address] [place] [address] Dr. Cami Bishop Neutrophils/100 WBC (Bld) 56.6 % Normal 43.0-75.0 [facility] Comment on above: Performed By: #### C BC #### [facility] [address] [place] [address] Dr. Cami Bishop Platelet mean volume (Bld) [Entitic vol] 9.6 fL Normal 9.5-13.5 [facility] Comment on above: Performed By: #### C BC #### [facility] [address] [place] [address] Dr. Cami Bishop PLT 229 103/ul Normal 150-450 [facility] Comment on above: Performed By: #### C BC #### [facility] [address] [place] [address] Dr. Cami Bishop RBC 5.13 106/ul Normal 4.70-6.10 [facility] Comment on above: Performed By: #### C BC #### [facility] [address] [place] [address] Dr. Cami Bishop WBC 5.6 103/ul Normal 4.0-11.0 [facility] Comment on above: Performed By: #### C BC #### [facility] [address] [address] [address] Cami Bishop FREE T3on 07-04-2022 FREE T3 2.50 pg/mlL Normal 2.18-3.98 [facility] Comment on above: Performed By: #### T SH, LIPID, FT3, T4, CMP #### [facility] [address] [address] [address] Cami Bishop GLYCOHEMOGLOBIN A1Con 2022 ADA RECOMMENDATION SEE BELOW Normal [facility] Comment on above: Result Comment: ADA RECOMMENDED LIMIT 4.0 - 6.0 ADA THERAPEUTIC TARGET < 7.0 ACTION SUGGESTED > 7.0 Performed By: #### A 1C #### [facility] [address] [place] [address] Dr. Cami Bishop Glucose [Mass/Vol] 105 mg/dL Normal [facility] Comment on above: Performed By: #### A 1C #### [facility] [address] [place] [address] Dr. Cami Bishop HbA1c (Bld) [Mass fraction] 5.3 % Normal 4.5-6.2 [facility] Comment on above: Performed By: #### A 1C #### [facility] [address] [place] [address] Dr. Cami Bishop LIPID PROFILEon 07-04-2022 CHOL-HDL RATIO NORM SEE BELOW Normal [facility] Comment on above: Result Comment: 3.3 - 4.4 LOW RISK 4.4 - 7.1 AVERAGE RISK 7.1 - 11.0 MODERATE RISK >11.0 HIGH RISK Performed By: #### T SH, LIPID, FT3, T4, CMP #### [facility] [address] [place] [address] Dr. Cami Bishop Cholesterol [Mass/Vol] 123 mg/dL Normal <=200 [facility] Comment on above: Performed By: #### T SH, LIPID, FT3, T4, CMP #### [facility] [address] [place] [address] Dr. Cami Bishop Cholesterol in HDL [Mass/Vol] 39 mg/dL Critically low 40-60 [facility] Comment on above: Performed By: #### T SH, LIPID, FT3, T4, CMP #### [facility] [address] [address] [address] Cami Bishop Cholesterol in LDL [Mass/Vol] 55.6 mg/dL Normal [facility] Comment on above: Performed By: #### T SH, LIPID, FT3, T4, CMP #### [facility] [address] [address] [address] Cami Bishop Cholesterol.total/Ch olesterol in HDL [Mass ratio] 3.2 {ratio} Normal [facility] Comment on above: Performed By: #### T SH, LIPID, FT3, T4, CMP #### [facility] [address] [address] [address] Cami Bishop HDL NORMAL > or = 60 mg/dl - LO W CARDIOVASCULAR RISK <40 mg/dl - HIGH CARDIOVASCULAR RISK Normal [facility] Comment on above: Performed By: #### T SH, LIPID, FT3, T4, CMP #### [facility] [address] [address] [address] Cami Bishop LDL CALC NORMAL SEE BELOW Normal [facility] Comment on above: Result Comment: <100 mg/dl OPTIMAL 100 - 129 mg/dl NEAR OR ABOVE OPTIMAL 130 - 159 mg/dl BORDERLINE HIGH 160 - 189 mg/dl HIGH >190 mg/dl VERY HIGH Performed By: #### T SH, LIPID, FT3, T4, CMP #### [facility] [address] [address] [address] Cami Bishop Triglyceride [Mass/Vol] 142 mg/dL Normal <=150 [facility] Comment on above: Performed By: #### T SH, LIPID, FT3, T4, CMP #### [facility] [address] [address] [address] Cami Bishop VLDL CALC 28.4 mg/dL Normal [facility] Comment on above: Performed By: #### T SH, LIPID, FT3, T4, CMP #### [facility] [address] [address] [address] Cami Bishop PROF 14(COMP METB)on 023 Albumin [Mass/Vol] 3.8 g/dL Normal 3.4-5.0 [facility] Comment on above: Performed By: #### T SH, LIPID, FT3, T4, CMP #### [facility] [address] [place] [address] Dr. Cami Bishop Albumin/Globulin [Mass ratio] 1.3 {ratio} Normal [facility] Comment on above: Performed By: #### T SH, LIPID, FT3, T4, CMP #### [facility] [address] [place] [address] Dr. Cami Bishop ALP [Catalytic activity/Vol] 44 U/L Critically low 46-116 [facility] Comment on above: Performed By: #### T SH, LIPID, FT3, T4, CMP #### [facility] [address] [place] [address] Dr. Cami Bishop ALT [Catalytic activity/Vol] 36 U/L Normal 16-63 [facility] Comment on above: Performed By: #### T SH, LIPID, FT3, T4, CMP #### [facility] [address] [place] [address] Dr. Cami Bishop Anion gap [Moles/Vol] 9.3 mmol/L Normal [facility] Comment on above: Performed By: #### T SH, LIPID, FT3, T4, CMP #### [facility] [address] [place] [address] Dr. Cami Bishop AST [Catalytic activity/Vol] 22 U/L Normal 15-37 [facility] Comment on above: Performed By: #### T SH, LIPID, FT3, T4, CMP #### [facility] [address] [place] [address] Dr. Cami Bishop Bilirubin [Mass/Vol] 1.4 mg/dL Critically high 0.2-1.0 [facility] Comment on above: Performed By: #### T SH, LIPID, FT3, T4, CMP #### [facility] [address] [place] [address] Dr. Cami Bishop Calcium [Mass/Vol] 8.9 mg/dL Normal 8.5-10.1 [facility] Comment on above: Performed By: #### T SH, LIPID, FT3, T4, CMP #### [facility] [address] [address] [address] Cami Bishop Chloride [Moles/Vol] 98 mmol/L Normal 98-107 [facility] Comment on above: Performed By: #### T SH, LIPID, FT3, T4, CMP #### [facility] [address] [place] [address] Dr. Cami Bishop CO2 [Moles/Vol] 32.7 mmol/L Critically high 21.0-32.0 [facility] Comment on above: Performed By: #### T SH, LIPID, FT3, T4, CMP #### [facility] [address] [place] [address] Dr. Cami Bishop Creatinine [Mass/Vol] 0.95 mg/dL Normal 0.70-1.30 [facility] Comment on above: Performed By: #### T SH, LIPID, FT3, T4, CMP #### [facility] [address] [place] [address] Dr. Cami Bishop EGFR-AF MAURITANIAN >60 Normal >=60 [facility] Comment on above: Performed By: #### T SH, LIPID, FT3, T4, CMP #### [facility] [address] [place] [address] Dr. Cami Bishop EGFR-NON AF MAURITANIAN >60 Normal >=60 [facility] Comment on above: Performed By: #### T SH, LIPID, FT3, T4, CMP #### [facility] [address] [place] [address] Dr. Cami Bishop Globulin (S) [Mass/Vol] 2.9 g/dL Normal [facility] Comment on above: Performed By: #### T SH, LIPID, FT3, T4, CMP #### [facility] [address] [place] [address] Dr. Cami Bishop Glucose [Mass/Vol] 102 mg/dL Normal 74-106 [facility] Comment on above: Performed By: #### T SH, LIPID, FT3, T4, CMP #### [facility] [address] [place] [address] Dr. Cami Bishop Potassium [Moles/Vol] 4.0 mmol/L Normal 3.5-5.1 [facility] Comment on above: Performed By: #### T SH, LIPID, FT3, T4, CMP #### [facility] [address] [place] [address] Dr. Cami Bishop Protein [Mass/Vol] 6.7 g/dL Normal 6.4-8.2 [facility] Comment on above: Performed By: #### T SH, LIPID, FT3, T4, CMP #### [facility] [address] [place] [address] Dr. Cami Bishop Sodium [Moles/Vol] 136 mmol/L Normal 136-145 [facility] Comment on above: Performed By: #### T SH, LIPID, FT3, T4, CMP #### [facility] [address] [place] [address] Dr. Cami Bishop Urea nitrogen [Mass/Vol] 14.0 mg/dL Normal 7.0-18.0 [facility] Comment on above: Performed By: #### T SH, LIPID, FT3, T4, CMP #### [facility] [address] [place] [address] Dr. Cami Bishop Urea nitrogen/Creatinine [Mass ratio] 14.7 mg/mg Normal [facility] Comment on above: Performed By: #### T SH, LIPID, FT3, T4, CMP #### [facility] [address] [place] [address] Dr. Cami Bishop T4on 07-04-2022 T4 [Mass/Vol] 6.80 ug/dL Normal 4.50-12.10 [facility] Comment on above: Performed By: #### T SH, LIPID, FT3, T4, CMP #### [facility] [address] [place] [address] Dr. Cami Bishop TSHon 07-04-2022 TSH 2.193 uIU/mL Normal 0.358-3.740 [facility] Comment on above: Performed By: #### T SH, LIPID, FT3, T4, CMP #### [facility] [address] [place] [address] Dr. Cami Bishop VITAMIN D 25 OHon 07-04-2022 VIT D 25-OH 35.1 ng/mL Normal [facility] Comment on above: Performed By: #### V ROSELINE, PSASC #### [facility] [address] [place] [address] Dr. Cami Bishop VIT D RANGES SEE BELOW Normal [facility] Comment on above: Result Comment: <20 ng/mL Vit D deficient 20 - <30 ng/mL Vit D insufficient 30 - 100 ng/mL Vit D sufficient >100 ng/mL Potential Toxicity Performed By: #### V ROSELINE PSASC #### [facility] [address] [place] [address] Dr. Cami Bishop ER URINE PROFILEon 2 Bilirubin Ql (U) Negative Normal NEGATIVE [facility] Comment on above: Performed By: #### T SH, LIPID, FT3, T4, CMP #### [facility] [address] [place] [address] Dr. Cami Bishop Clarity (U) CLEAR Normal CLEAR [facility] Comment on above: Performed By: #### T SH, LIPID, FT3, T4, CMP #### [facility] [address] [place] [address] Dr. Cami Bishop Color (U) YELLOW Normal YELLOW [facility] Comment on above: Performed By: #### T SH, LIPID, FT3, T4, CMP #### [facility] [address] [place] [address] Dr. Cami Bishop ERUAHD A micrscopic examination will be performed if indicated. Normal [facility] Comment on above: Performed By: #### T SH, LIPID, FT3, T4, CMP #### [facility] [address] [place] [address] Dr. Cami Bishop Glucose Ql (U) Negative Normal NEGATIVE [facility] Comment on above: Performed By: #### T SH, LIPID, FT3, T4, CMP #### [facility] [address] [place], [place] [id number] Dr. Cami Bishop Hemoglobin Ql (U) Negative Normal NEGATIVE [facility] Comment on above: Performed By: #### T SH, LIPID, FT3, T4, CMP #### [facility] [address] [address] [address] Cami Bishop Ketones Ql (U) Negative Normal NEGATIVE [facility] Comment on above: Performed By: #### T SH, LIPID, FT3, T4, CMP #### [facility] [address] [address] [address] Cami Bishop LEUKOCYTES Negative Normal NEGATIVE [facility] Comment on above: Performed By: #### T SH, LIPID, FT3, T4, CMP #### [facility] [address] [place] [address] Dr. Cami Bishop Nitrite Ql (U) Negative Normal NEGATIVE [facility] Comment on above: Performed By: #### T SH, LIPID, FT3, T4, CMP #### [facility] [address] [address] [address] Cami Bishop pH (U) 6.0 [pH] Normal 5-9 [facility] Comment on above: Performed By: #### T SH, LIPID, FT3, T4, CMP #### [facility] [address] [place] [address] Dr. Cami Bishop SPEC GRAVITY 1.020 Normal 1.005-<=1.025 [facility] Comment on above: Performed By: #### T SH, LIPID, FT3, T4, CMP #### [facility] [address] [place] [address] Dr. Cami Bishop UA PROTEIN Negative Normal NEGATIVE/ TRACE [facility] Comment on above: Performed By: #### T SH, LIPID, FT3, T4, CMP #### [facility] [address] [place] [address] Dr. Cami Bishop UR MICRO IND NOT INDICATED Normal [facility] Comment on above: Performed By: #### T SH, LIPID, FT3, T4, CMP #### [facility] [address] [place] [address] Dr. Cami Bishop Urobilinogen Qn (U) 1.0 {Dia'U}/dL Normal 0.2 - 1. 0 [facility] Comment on above: Performed By: #### T SH, LIPID, FT3, T4, CMP #### [facility] [address] [id number] Cami Bishop XR LSPINE 2_3 VIEWSon [...] by: DAMIR MACHADO Date: 2022-01-11 13:56 Normal [facility] Consent for COVID Vaccineon 08-06-2020 SARS-CoV-2 (COVID-19) RNA LIN+probe Ql (Unsp spec) [id number]#1. 00CD:[address] [facility] Consent for COVID Vaccineon 07-01-2020 SARS-CoV-2 (COVID-19) RNA LIN+probe Ql (Unsp spec) [id number]#1. 00CD:[address] [facility] Consent for Treatmenton 06-20 Consent for Treatment [id number]#1. 00CD:[address] [facility] Coding Summary.on 06-29-2020 Coding Summary. CODING DATE: 06/29/2020 FINAL [facility] STATUS: PAYOR: Medicare APC DESCRIPTION [...] CphT Date Saved: 06/29/2020 11:[address] [facility] Ambulatory Clinical Summaryo n 01-26-2020 Ambulatory Clinical Summary {[id number]}CD:[id number] Normal [facility] Ambulatory Clinical Summaryo n 12-16-2019 Ambulatory Clinical Summary {[id number] }CD:[id number] Normal [facility] General Surgery Office/Clini c Noteon 12-16-2019 General Surgery Office/Clinic Note Chief Complaint post operative follow up HPI Staff 14 day post operative follow up post excisional biopsy from left occipital scalp completed at [facility] on 12/03. Denies pain; no use [...] History of gout Hyperlipemia Lipoma of scalp TN (myocardial infarction) Obstructive sleep apnea Pilar cyst [...] Date Status diphtheria/pertussis, acel/tetanus adult 10/26/[address] [facility] Comment on above: Result Comment: Elec tronically Signed By: CRISTINA MARTIN, Joseph Ledesma\Date and Time Signed: 12/16/19 13:32 EDT Operative Reporton 0 Operative Report [id number]#1.0 0CD:[address] [facility] Pathology Noteon 12-08-2019 Pathology Note [id number]#1.0 0CD:[address] [facility] Facesheeton 11-13-2019 Facesheet [id number]#1.0 0CD:[address] [facility] Physician Referralon 020 Physician Referral [id number] CD:[address] [facility] Cardiovascular Lab Reporton 03-06-2018 Cardiovascular Lab Report [facility] Patient Name: [facility] García MR #: [id number] of Physician: Sheryl Stratton M.D.Division of Service Date: 03/05/2018Cardiology Birthdate: [birth year]Adult Cardiovascular Room #: 3CD [id number] [place], [place] [address]Seava Fax Cardiovascular Laboratory ReportFINAL IMPRESSIONS:1. Severe stenosis of the left anterior descending coronary artery, successfully treated by balloon angioplasty and Synergy drug-eluting stent placement.2. Severe stenosis of the posterior descending artery, successfully treated by balloon angioplasty and Synergy drug-eluting stent placement.3. Moderate angiographic, non-hemodynamically significant stenosis of the right coronary artery as assessed by instantaneous wave-free ratio (iFR).4. Whwy-jz-bquxxymd in-stent restenosis of the mid left anterior [...] rehabilitation.5. Follow up with me in the [facility] in the next 2 to 4 [...] the left radial arteryunder ultrasound guidance. A 6-Lithuanian Glidesheath was inserted withoutdifficulty. Coronary angiography was performed using JR4 and [id number]. After reviewing the images, it was elected to proceed with aninterventional procedure.A 6-Lithuanian XB3.5 guide catheter was advanced over J-wire and coaxiallyengaged into the left main coronary ostium. The Geneva pressure wire wasadvanced through the catheter with [...] wire trauma. The XB guide catheter wasremoved.A 6-Lithuanian JR4 guide catheter was advanced over the J-wire and coaxiallyengaged into the right coronary ostium. A new Geneva pressure wire wasadvanced through the catheter with [...] be transferred to the holding area in stablecondition.FINDMA GS:Hemodynamics:RA 13.RV 36/9, 15.PA 36/13 (25).PCWP 15.TPG [...] restenosis. Distal to a small adjacent diagonal, fbmktb-ro-voaivi left anterior descending shows a short segment [...] 03/05/2018/01:31 P/Moraima Ruelas M.D.Date Trans: 03/06/2018 12:18 P/[id number]: Romel Quijano M.D. [facility] [address] [facility] [address] [facility] Encounters Encounter Date Encounter Type Care Provider Facility Start: 07-09-2023 End: 07-09-2023 ambulatory DAKOTA GARCIA Not Available Start: 04-22-2023 End: 04-23-2023 ambulatory Navdeep Porter MD Facility: [facility] Start: 01-07-2023 End: 01-07-2023 ambulatory MORAIMA RUELAS [facility] Start: 07-04-2022 End: 07-05-[address] ROMEL QUIJANO . Facility: Start: 01-11-2022 End: 01-11-[address] ROMEL QUIJANO . Facility: Start: 04-07-2018 End: 04-08-2018 Patient encounter procedure DEFAULT PHYSICIAN Facility:[facility] Start: 03-05-2018 End: 03-06-2018 Patient encounter procedure MORAIMA RUELAS Facility:[facility] Procedures Date Procedure Procedure Detail Performing Clinician Start: 07-04-[address] DESIRAE QUIJANO . Comment on above: Performed By: #### V ITAD, PSASC #### [facility] [address] [place] [address] Dr. Cami Bishop Start: 03-05-2018 R HRT CORONARY ARTERY ANGIO MORAIMA RUELAS Payers Date Payer Category Payer Medicare 1958 Private Health Insurance [id number] 1945 Unknown [id number] [id number] 1945 Unknown [id number] 2.16.8 [id number] 1945 Unknown [id number] 2.16.84 [id number] 1945 Unknown [id number] 2.16.84 [id number] 1945 Unknown [id number] 2.16. [id number] 1945 Unknown [id number] 2.16.84 [id number] Unknown Progress note 01-07-2023 Note Date & Type Note Facility 01-07-2023 Note [facility] Cardiology Clinic Note Chief Complaint: Patient here [...] and in the intensive care unit in [facility]. She had a bowel perforation with peritonitis. She required surgery. She is being placed on dialysis today. Cardiology ROS: Review of Systems Cardiovascular: Positive for dyspnea on exertion. Musculoskeletal: Positive for arthritis and joint pain. All other systems reviewed and are negative. Past Medical History He has a past medical history of Hyperlipidemia, Hypertension, Myocardial infarction ([facility]/HCC), and Sleep apnea. Surgical History He has [...] assessed by instantaneous wave-free ratio (iFR). 4. Vemi-ux-kigwgfaj in-stent restenosis of the mid left anterior [...] 5. Follow up with me in the [facility] in the next 2 to 4 weeks. [...] and reported i (more content not included)... [facility] Summary Purpose Family History No Family History [...] and content) DATE CREATED AUTHOR 04/28/2018 [facility] DATE CREATED AUTHOR AUTHOR'S ORGANIZ ATION 10/26/2020 [facility] DATE CREATED AUTHOR AUTHOR'S ORGANIZ ATION 07/09/2022 [facility] DATE CREATED AUTHOR AUTHOR'S ORGANIZ ATION 01/07/2023 [facility] DATE CREATED AUTHOR AUTHOR'S ORGANIZ ATION 05/03/[address] [facility] DATE CREATED AUTHOR AUTHOR'S GAUDENCIO AGUILA 07/16/2023 [facility] FOR RECORDS PERTAINING TO PATIENTS WHO [...] BE BASED ON THE PRIMARY CLINICAL RECORDS. [facility] [employer] [facility]. provides no warranty or guarantee of the accuracy or completeness of information in this document.
== END 2023-09-12 10:16 | disposition home or self-care (01) ==
LOC: US 10:16
PROVIDERS: PCP Family Medicine; Visit Provider Family Medicine
DX: R79.89 Other specified abnormal findings of blood chemistry (principal)
CPT/HCPCS: 76705

== ENCOUNTER 2023-10-15 10:23 | Outpatient (OUT) | payer MEDICARE, SELFPAY ==
--- OUTSIDE RECORDS SUMMARY | 2023-10-15 10:26 | XMS_ITS | CCD ---
Author Organization [facility] Care Team Providers Care Surveying Teacher Name Role Phone PHYSICIAN, DEFAULT Unavailable Unavailable PHYSICIAN, DEFAULT Unavailable Unavailable HOY, ROMEL Unavailable Unavailable [place], EHAB A Unavailable Unavailable [place], EHAB A Unavailable Unavailable HOY, ORMEL Unavailable Unavailable HOY, ROMEL Unavailable Unavailable TN Unavailable Unavailable [place], EHAB A Unavailable Unavailable HOY ., DR URENA Primary Care Unavailable WENDY WHITMAN Admitting Unavailable WENDY WHITMAN Attending Unavailable CARTER, DR DAMIR Thibodeaux Consulting Unavailable WENDY WHITMAN Consulting Unavailable HOY ., DR URENA Admitting Unavailable HOY ., DR URENA Attending Unavailable HOY ., DR URENA Primary Care Unavailable HOY ., DR URENA Consulting Unavailable German MARTIN, Navdeep Dodd Attending Unavailable [place], EHAB Referring Unavailable [place], EHAB Attending Unavailable NATHAN ARROYO Attending Unavailable KAREY HASSAN Admitting Unavailable [place], EHAB Referring Unavailable DAKOTA GARCIA Attending Unavailable DAKOTA GARCIA Attending Unavailable Allergies Allergy Classification Reported Allergen(s) Allergy Type Date of Onset Reaction(s) Facility (1 source) 42905,00; Translations: [69577,00] Propensity to adverse reactions (disorder) 9 [facility] Repository (2 sources) levoFLOXacin; Translations: [LEVOFLOXACIN] Drug Allergy 3 [facility] Repository Problems Active Problems Problem Classification Problem Date Documented Date Episodic/Chronic Complication of device; implant or graft (1 source) Stenosis of coronary artery stent, initial encounter; Translations: [STENOSIS OF CORONARY ARTERY STENT, INITIAL ENCOUNTER] Onset: 03-05-2018 Coronary atherosclerosis and other heart disease (7 sources) Atherosclerotic heart disease of jackson coronary artery with unstable angina pectoris; Translations: [...] Onset: 07-09-2022 Episodic Other aftercare (1 source) terminal carman (current) use of 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/antip latelets; Translations: [CARE HOME (CURRENT) USE OF ANTITHROMBOTICS/ANTIP LATELETS] Onset: 03-05-2018 Episodic Other aftercare (1 source) retirement (current) use of aspirin; Translations: [CUSTODIAL LABORER (CURRENT) USE OF ASPIRIN] Onset: 03-05-2018 Episodic Other aftercare (1 source) Other intermediate card tender (current) drug therapy; Translations: [OTH CUSTODIAL LABORER CURRENT DRUG THERAPY] Onset: 07-09-2022 Episodic Other aftercare (1 source) terminal carman (current) use of oral hypoglycemic drugs; Translations: [CUSTODIAL LABORER (CURRENT) USE OF ORAL HYPOGLYCEMIC DRUGS] Onset: 03-05-2018 Other lower respiratory disease (1 source) Shortness of breath; Translations: [SHORTNESS OF BREATH] Onset: 03-05-2018 Episodic Other screening for suspected conditions (not mental disorders or infectious disease) (4 sources) Encounter for screening for malignant neoplasm [...] Test Name Value Interpretation Reference Range Facility CBC WITH AUTO DIFFERENTIALon 09-28-2023 Basophils (Bld) [#/Vol] 0.02 10*3/uL Normal 0.00-0.20 [facility] Comment on above: Performed By: #### L [id number] ####[facility] (BEAKER)[address] [place] [address] Basophils/100 WBC (Bld) 0.3 % Normal 0.0-1.0 [facility] Comment on above: Performed By: #### L [id number] ####[facility] (BEAKER)[address] [place] [address] Eosinophils (Bld) [#/Vol] 0.10 10*3/uL Normal 0.00-0.50 [facility] Comment on above: Performed By: #### L [id number] ####[facility] (BEAKER)[address] [place] [address] Eosinophils/100 WBC (Bld) 1.4 % Normal 0.0-6.0 [facility] Comment on above: Performed By: #### L [id number] ####[facility] (BEAKER)[address] [place] [address] Erythrocyte distribution width (RBC) [Ratio] 12.4 % Normal 11.5-15.0 [facility] Comment on above: Performed By: #### L [id number] ####[facility] (BEAKER)[address] [place] [address] ERYTHROCYTE MEAN CORPUSCULAR HEMOGLOBIN CONCENTRATION (G/DL) BY AUTOMATED 34.4 g/dL Normal 32.0-35.0 [facility] Comment on above: Performed By: #### L [id number] ####[facility] (BEAKER)[address] [place] [address] Hematocrit (Bld) [Volume fraction] 46.5 % Normal 39.0-55.0 [facility] Comment on above: Performed By: #### L [id number] ####[facility] (BEAKER)[address] [place] [address] Hemoglobin (Bld) [Mass/Vol] 16.0 g/dL Normal 13.0-17.0 [facility] Comment on above: Performed By: #### L [id number] ####[facility] (BEAKER)[address] [place] [address] Immature granulocytes (Bld) [#/Vol] 0.03 10*3/uL Normal 0.00-0.20 [facility] Comment on above: Performed By: #### L [id number] ####[facility] (BEAKER)[address] [place] [address] Immature granulocytes/100 WBC (Bld) 0.4 % Normal 0.0-1.0 [facility] Comment on above: Performed By: #### L [id number] ####[facility] (BEAKER)[address] [place] [address] Lymphocytes (Bld) [#/Vol] 1.43 10*3/uL Normal 1.20-4.00 [facility] Comment on above: Performed By: #### L [id number] ####[facility] (BEAKER)[address] [place] [address] Lymphocytes/100 WBC (Bld) 19.6 % Low 20.0-45.0 [facility] Comment on above: Performed By: #### L [id number] ####[facility] (BEAKER)[address] [place] [address] MCH (RBC) [Entitic mass] 31.7 pg Normal 27.0-33.0 [facility] Comment on above: Performed By: #### L [id number] ####[facility] (BEAKER)[address] [place] [address] MCV (RBC) [Entitic vol] 92.3 fL Normal 82.0-98.0 [facility] Comment on above: Performed By: #### L [id number] ####[facility] (BEAKER)[address] [address] Monocytes (Bld) [#/Vol] 0.79 10*3/uL Normal 0.10-1.00 [facility] Comment on above: Performed By: #### L [id number] ####[facility] (BEAKER)[address] [address] Monocytes/100 WBC (Bld) 10.8 % Normal 5.0-12.0 [facility] Comment on above: Performed By: #### L [id number] ####[facility] (BEAKER)[address] [address] Neutrophils (Bld) [#/Vol] 4.92 10*3/uL Normal 1.60-7.60 [facility] Comment on above: Performed By: #### L [id number] ####[facility] (BEAKER)[address] [address] Neutrophils/100 WBC (Bld) 67.5 % Normal 40.0-72.0 [facility] Comment on above: Performed By: #### L [id number] ####[facility] (BEAKER)[address] [address] NRBC (PER 100 WBCS) BY AUTOMATED COUNT 0.0 % Normal 0 [facility] Comment on above: Performed By: #### L [id number] ####[facility] (BEAKER)[address] [place] [address] PLATELETS (10*3/UL) IN BLOOD AUTOMATED COUNT 278 10*3/uL Normal 150-400 [facility] Comment on above: Performed By: #### L [id number] ####[facility] (BEAKER)[address] [address] RBC (Bld) [#/Vol] 5.04 10*6/uL Normal 4.20-5.70 [facility] Comment on above: Performed By: #### L [id number] ####[facility] [place] [address] WBC (Bld) [#/Vol] 7.29 10*3/uL Normal 4.00-10.60 [facility] Comment on above: Performed By: #### L [id number] ####[facility] [place] [address] COMPREHENSIVE METABOLIC PANE Jace 09-28-2023 Albumin [Mass/Vol] 4.4 g/dL Normal 3.5-5.7 [facility] Comment on above: Performed By: #### L [id number] ####[facility] ([facility])[address] [place] [address] ALP [Catalytic activity/Vol] 31 U/L Low 34-104 [facility] Comment on above: Performed By: #### L [id number] ####[facility] ([facility])[address] [place] [address] ALT [Catalytic activity/Vol] 19 U/L Normal 7-52 [facility] Comment on above: Performed By: #### L [id number] ####[facility] ([facility])[address] [place] [address] Anion gap [Moles/Vol] 11 mmol/L Normal 7-20 [facility] Comment on above: Performed By: #### L [id number] ####[facility] ([facility])[address] [place] [address] AST [Catalytic activity/Vol] 18 U/L Normal 13-39 [facility] Comment on above: Performed By: #### L [id number] ####[facility] ([facility])[address] [place] [address] Bilirubin [Mass/Vol] 2.1 mg/dL High 0.3-1.0 [facility] Comment on above: Performed By: #### L [id number] ####[facility] [place] [address] Calcium [Mass/Vol] 8.8 mg/dL Normal 8.6-10.3 [facility] Comment on above: Performed By: #### L [id number] ####[facility] ([facility])[address] [place] [address] Chloride [Moles/Vol] 102 mmol/L Normal 98-107 [facility] Comment on above: Performed By: #### L [id number] ####[facility] ([facility])[address] [place] [address] CO2 [Moles/Vol] 25 mmol/L Normal 21-31 [facility] Comment on above: Performed By: #### L [id number] ####[facility] ([facility])[address] [place] [address] Creatinine [Mass/Vol] 0.75 mg/dL Normal 0.70-1.30 [facility] Comment on above: Performed By: #### L [id number] ####[facility] ([facility])[address] [place] [address] GLOMERULAR FILTRATION RATE ML/MIN/1.73 SQ M.PREDICTED 92.9 mL/min/1.73m*2 Normal >60.0 [facility] Comment on above: Result Comment: [facility]???s estimated glomerular filtration rate (eGFR) will no longer include consideration of race in its calculation. The National Kidney Foundation???s eGFR Task Force developed new recommendations for the estimation of the glomerular filtration rate in the [place] They recommend immediate implementation of the new equation refit without the race variable in all laboratories because the calculation does not include race. In addition to not including race in the calculation and reporting, it included diversity in its development, and has acceptable performance characteristics and potential consequences that do not disproportionately affect any one group of individuals. Performed By: #### L [id number] ####[facility] ([facility])[address] [place] [address] Glucose [Mass/Vol] 85 mg/dL Normal 70-100 [facility] Comment on above: Performed By: #### L [id number] ####[facility] ([facility])[address] [place] [address] Potassium [Moles/Vol] 4.0 mmol/L Normal 3.5-5.1 [facility] Comment on above: Performed By: #### L [id number] ####[facility] (BEAKER)[address] [place] [address] Protein [Mass/Vol] 6.6 g/dL Normal 6.0-8.3 [facility] Comment on above: Performed By: #### L [id number] ####[facility] (BEAKER)[address] [place] [address] Sodium [Moles/Vol] 134 mmol/L Low 136-145 [facility] Comment on above: Performed By: #### L [id number] ####[facility] (BEAKER)[address] [place] [address] Urea nitrogen [Mass/Vol] 13 mg/dL Normal 7-25 [facility] Comment on above: Performed By: #### L [id number] ####[facility] [place] [address] UREA NITROGEN/CREATININE (MASS RATIO) IN SER/PLAS 17.3 Normal [facility] Comment on above: Performed By: #### L [id number] ####[facility] [place] [address] DSon 09-28-2023 DS Admission Admitted 09/27/2023 for Abnormal stress test, CAD Discharge Diagnosis Abnormal stress test CAD s/p balloon angioplasty and shockwave intravascular lithotripsy to ISR of LAD. Discharge Disposition Home or Self Care () Discharge Medications Your medication list CONTINUE taking these medications Instructions Last Dose Given Next Dose Due amLODIPine 2.5 mg tablet Commonly known as: Norvasc Take 1 tablet (2.5 mg) by mouth in the morning and at bedtime. aspirin 81 mg chewable tablet clopidogrel 75 mg tablet Commonly known as: Plavix Take 1 tablet (75 mg) by mouth in the morning. hydroCHLOROthiazide 12.5 mg capsule Commonly known as: Microzide lisinopril 40 mg tablet metFORMIN 500 mg tablet Commonly known as: Glucophage metoprolol tartrate 25 mg tablet Commonly known as: Lopressor simvastatin 40 mg tablet Commonly known as: Zocor take 1 tablet by mouth once daily Activity Gradually resume normal activities over the next week or so. No excessive bending of left wrist or lifting >5# with left hand for 3 days. No driving for 24 hours after procedure Diet Heart Healthy Diet Allergies Levofloxacin Hospital Course Patient is a 78 y/o M with known PMHx of CAD s/p stenting, HTN, HLD, NSVT, insulin resistance who presented for an elective coronary angiogram due to an abnormal stress test. He was found to have severe ISR to a previously placed LAD stent. He underwent ballloon angioplasty and shockwave intravascular lithotripsy. He tolerated the procedure well. No acute events overnight. Left radial cath access site is soft, nontender, no hematoma or bruit. He had some bradycardia overnight along with some PVCs and PSVT this AM - he is compliant with his BiPAP and he denies any c/o palpitations. Reviewed cath findings with patient/daughter. He stated understanding. Discussed importance of DAPT compliance and plans to post pone knee surgery for 6-8 weeks, heart healthy diet, routine exercise, weight loss. He states understanding. Offered Rx of SL nitroglycerin, he declines at this time and will further discuss with Dr. Ruelas when he see's him next month. Also will have him discuss SGLT2i or GLP-[address] Ruelas at his follow-up appt as he currently takes metformin for insulin resistance and he states he does not have diabetes/prediabetes. Patient discharged to home in stable condition. Cardiovascular Laboratory Report 09/28/23 FINAL IMPRESSIONS: Severe, in-stent restenosis of the left anterior descending coronary artery successfully treated by balloon angioplasty and Shockwave intravascular lithotripsy Patent stent in the distal portion of the left anterior descending coronary artery Mild to moderate disease of the mid and distal left anterior descending coronary artery Moderate to severe disease of a small caliber first obtuse marginal branch of the left circumflex coronary artery Patent stents in the right coronary artery Moderate to severe disease at the crux of the right coronary artery; this appears unchanged from prior angiography Normal global left ventricular systolic function by noninvasive imaging RECOMMENDATIONS: Aggressive cardiovascular risk factor modification Optimal medical therapy should include dual antiplatelet therapy, moderate to high intensity statin therapy, a beta-yazmin and an RAAS inhibitor Recommend an SGLT2 inhibitor or GLP-1 receptor agonist if the patient an SGLT2 inhibitor or GLP-1 receptor agonist if the patient is currently being treated for diabetes or prediabetes Dual antiplatelet therapy must be continued uninterrupted for a minimum of 1 month Plavix can be held after 6 weeks and the patient may have knee surgery after 6 to 8 weeks; resume dual antiplatelet therapy postoperatively when acceptable Should the patient experience recurrent in-stent restenosis, will hopefully be able to offer drug eluting balloon therapy in the near future Follow-up with Dr. Ruelas in the next 1 to 2 months Pertinent Physical Exam At Time of Discharge Physical Exam Constitutional: Appearance: Normal appearance. He is obese. HENT: Head: Normocephalic and atraumatic. Right Ear: External ear normal. Left Ear: External ear normal. Eyes: Extraocular Movements: Extraocular movements intact. Pupils: Pupils are equal, round, and reactive to light. Neck: Vascular: No carotid bruit. Cardiovascular: Rate and Rhythm: Regular rhythm. Bradycardia present. Pulses: Normal pulses. Heart sounds: Normal heart sounds. Comments: Left radial cath access site soft, nontender, no hematoma, no ecchymosis, no bruit. Pulmonary: Effort: Pulmonary effort is normal. Breath sounds: Normal breath sounds. Abdominal: General: Bowel sounds are normal. Palpations: Abdomen is soft. Musculoskeletal: General: Normal range of motion. Cervical back: Neck supple. Right lower leg: Edema present. Left lower leg: Ed (more content not included)... Normal [facility] HEMOGLOBIN A1Con 09-28-2023 Glucose [Mass/Vol] 88 mg/dL Normal [facility] Comment on above: Performed By: #### L [id number] ####[facility] (BEAKER)[address] [place] [address] HbA1c (Bld) [Mass fraction] 4.7 % Normal 4.0-6.0 [facility] Comment on above: Performed By: #### L [id number] ####[facility] (BEAKER)[address] [place] [address] 30on 09-27-2023 30 Problem: Pain - Adul t Goal: Verbalizes/displays adequate comfort level or baseline comfort level Outcome: Progressing Flowsheets (Taken 09/27/2023 1425) Verbalizes/displays adequate comfort level or baseline comfort level: Assess pain using appropriate pain scale Administer analgesics based on type and severity of pain and evaluate response Implement non-pharmacological measures as appropriate and evaluate response Problem: Safety - Adult Goal: Free from fall injury Outcome: Progressing Flowsheets (Taken 09/27/20231424) Free from fall injury: Identify cognitive and physical deficits and behaviors that affect risk of falls Hardin fall precautions as indicated by assessment Educate patient/family on patient safety, including physical limitations Problem: Discharge Planning Goal: Discharge to home or other facility with appropriate resources Outcome: Progressing Flowsheets (Taken 09/27/20231424) Discharge to home or other facility with appropriate resources: Arrange for needed discharge resources and transportation as appropriate Identify discharge learning needs (meds, wound care, etc) Arrange for interpreters to assist at discharge as needed Problem: Chronic Conditions and Co-morbidities Goal: Patient's chronic conditions and co-morbidity symptoms are monitored and maintained or improved Outcome: Progressing Flowsheets (Taken 09/27/20231424) Care Plan - Patient's Chronic Conditions and Co-Morbidity Symptoms are Monitored and Maintained or Improved: Monitor and assess patient's chronic conditions and comorbid symptoms for stability, deterioration, or improvement Collaborate with multidisciplinary team to address chronic and comorbid conditions and prevent exacerbation or deterioration Update acute care plan with appropriate goals if chronic or comorbid symptoms are exacerbated and prevent overall improvement and discharge The patient is Moderately Unstable - Medium risk of patient condition declining or worsening The patient's goals for the shift include COMFORT The clinical goals for the shift include STABLE VS Normal [facility] Adriana 09-27-2023 MARY -- Attestation signed by Moraima Ruelas MD at 09/27/2023 1:33 PM Moraima Ruelas MD, MPH, [facility], [facility], [facility] Interventional Cardiology Pager Email: [email or web address] Patient: Sonia Plasencia Procedure Information Date/Time: 09/27/23 1230 Procedure: Coronary angiography (Left) Location: [facility] OPERATIONS COORDINATOR 3 / [facility] (Cath) Providers: Moraima Ruelas MD Clinical information reviewed: Smart[employer] Meds Physical Exam Airway Mallampati: IV TM distance: >3 FB Neck ROM: full Cardiovascular Rhythm: regular Rate: normal Dental Pulmonary - normal exam Breath sounds clear to auscultation Abdominal (+) obese Abdomen: soft Anesthesia Plan ASA 4 (Moderate sedation) Anesthetic plan and risks discussed with patient. Use of blood products discussed with patient who consented to blood products. Plan discussed with fellow and attending. Additional Equipment Requests Normal [facility] 09-27-2023 -- Attestation signed by Moraima Ruelas MD at 09/27/2023 1:33 PM Moraima Ruelas MD, MPH, [facility], [facility], [facility] Interventional Cardiology Pager Email: [email or web address] History Of Present Illness Sonia Plasencia is a 78 y.o. male presenting with planned coronary angiogram. PMHx of CAD w/ prior stents, NSVT, hypertension, and hyperlipidemia. Patient OA of R knee and is planned for R knee replacement he underwent stress on 09/13/23 due to his prior cardiac hx and was found to have moderate sized area of decreased uptake in inferior wall suggestive of partially reversible ischemia. He Denies chest pain and LE edema. VO remains unchanged. Has been doing relatively well from a heart standpoint. Continues to have exertional shortness of breath no worse than usual. Recent hx of tremendous stress with his being critically ill after bowel perforation with peritonitis, in a prolonged and complicated clinical course ultimately passing away in December 2022. Cardiology ROS: Review of Systems Cardiovascular: Positive [...] tobacco use, alcohol use, and drug use. Allergies Levofloxacin Medications Medications Prior to Admission Medication Sig Dispense Refill Last Dose amLODIPine (Norvasc) 2.5 mg tablet Take 1 tablet (2.5 mg) by mouth in the morning and at bedtime. 180 tablet 3 09/26/2023 aspirin 81 mg chewable tablet Chew 1 tablet every day by oral route. 09/26/2023 clopidogrel (Plavix) 75 mg tablet Take 1 tablet (75 mg) by mouth in the morning. 90 tablet 3 09/27/2023 lisinopril 40 mg tablet Take 1 tablet by mouth in the morning. 09/26/2023 metFORMIN (Glucophage) 500 mg tablet Take 500 mg by mouth in the morning and at bedtime. 09/27/2023 metoprolol tartrate (Lopressor) 25 mg tablet Take 1 tablet by mouth in the morning and at bedtime. 09/27/2023 simvastatin (Zocor) 40 mg tablet take 1 tablet by mouth once daily 90 tablet 3 09/27/2023 hydroCHLOROthiazide (Microzide) 12.5 mg capsule Take 12.5 mg by mouth in the morning. Not Taking Physical Exam GENERAL: alert and oriented x3, well developed, [...] extremities. PSYCH: appropriate mood, affect, and judgement. Last Recorded Vitals Blood pressure 157/85, pulse 79, resp. rate 17, height 1.778 m (5' 10 ), weight 127 kg (280 lb), SpO2 98 %. Relevant Results Stress test 09/13/23 OSH Moderate sized area of decreased uptake in inferior wall suggestive of partially reversible ischemia Cardiovascular Laboratory Report Physician: Moraima Ruelas, FINAL IMPRESSIONS: 1. Severe stenosis of the left anterior descending coronary artery, successfully treated by balloon angioplasty and Synergy drug-eluting stent placement. 2. Severe stenosis of the posterior descending artery, successfully treated by balloon angioplasty and Synergy drug-eluting stent placement. 3. Moderate angiographic, non-hemodynamically significant stenosis of the right coronary artery as assessed by instantaneous wave-free ratio (iFR). 4. [id number] in-stent restenosis of the mid left anterior [...] 5. Follow up with me in the [facility] in the next 2 to 4 weeks. 6. Follow up with Dr. Quijano as scheduled. PROCEDURES: Ultrasound-guided access to the right internal jugular vein, right heart catheterization, ultrasound-guided access to the left radial artery, bilateral selective coronary angiography, percutaneous balloon a (more content not included)... [facility] NURSNOTEon 09-27-2023 NURSNOTE Report given to MERCY Luo from Manuela RN Any medications or safety alerts were reviewed. Any pending diagnostics and notifications were also reviewed, as well as any safety concerns or issues, abnormal labs, abnormal imagining, and abnormal assessment findings. Questions were answered. Normal [facility] Letter (Out)on 09-17-2023 Letter (Out) [id number] EhSonia Mariano 1945 [facility] Provider Department [place] 09/17/2023 None-None [facility] AUTH DE Medical C No family history on file Normal [facility] 36on 09-13-[address] Quijano's office called and wanted to know what the plan was for the patients abnormal stress test. Normal [facility] Orders Onlyon 09-13-2023 Orders Only [id number] EhSonia 1945 [facility] Department [place] 09/13/2023 GORDON GRANDE CARD [facility] No family history on file [facility] Office Visiton 01-07-2023 Follow-up visit [id number] Sonia Plasencia 1945 [facility] Department [place] 01/07/2023 Heaven-MORAIMA RUELAS CARD [facility] No family history on file Level of Service:50467 [place] OFFICE/OUTPATIENT ESTABLISHED LOW MDM 20-29 MIN [facility] CBC AUTO DIFFon 07-04-2022 BASO # 0.1 103/ul Normal 0.0-0.1 [facility] Comment on above: Performed By: #### C BC #### [facility] [address] [place] [address] Dr. Cami Bishop Basophils/100 WBC (Bld) 0.9 % Normal 0.2-2.0 [facility] Comment on above: Performed By: #### C BC #### [facility] [address] [place] [address] Dr. Cami Bishop EO # 0.1 103/ul Normal 0.0-0.7 [facility] Comment on above: Performed By: #### C BC #### [facility] [address] [place] [address] Dr. Cami Bishop Eosinophils/100 WBC (Bld) 2.0 % Normal 0.9-7.0 [facility] Comment on above: Performed By: #### C BC #### [facility] [address] [place] [address] Dr. Cami Bishop Erythrocyte distribution width (RBC) [Ratio] 12.2 % Normal 11.0-15.0 [facility] Comment on above: Performed By: #### C BC #### [facility] [address] [place] [address] Dr. Cami Bishop Hematocrit (Bld) [Volume fraction] 45.3 % Normal 42.0-54.0 [facility] Comment on above: Performed By: #### C BC #### [facility] [address] [place] [address] Dr. Cami Bishop Hemoglobin (Bld) [Mass/Vol] 16.0 g/dL Normal 14.0-18.0 [facility] Comment on above: Performed By: #### C BC #### [facility] [address] [place] [address] Dr. Cami Bishop IG # 0.04 10e3/ul Critically high 0.00-0.03 [facility] Comment on above: Performed By: #### C BC #### [facility] [address] [place] [address] Dr. Cami Bishop IG % 0.7 % Critically high 0.0-0.5 [facility] Comment on above: Performed By: #### C BC #### [facility] [address] [place] [address] Dr. Cami Bishop LYMPH # 1.6 103/ul Normal 1.2-3.8 [facility] Comment on above: Performed By: #### C BC #### [facility] [address] [place] [address] Dr. Cami Bishop Lymphocytes/100 WBC (Bld) 28.6 % Normal 20.5-60.0 [facility] Comment on above: Performed By: #### C BC #### [facility] [address] [place] [address] Dr. Cami Bishop MANUAL DIFF REQ NO Normal [facility] Comment on above: Performed By: #### C BC #### [facility] [address] [place] [address] Dr. Cami Bishop MCH (RBC) [Entitic mass] 31.2 pg Normal 25.9-34.0 [facility] Comment on above: Performed By: #### C BC #### [facility] [address] [place] [address] Dr. Cami Bishop MCHC (RBC) [Mass/Vol] 35.3 g/dL Critically high 29.9-35.2 [facility] Comment on above: Performed By: #### C BC #### [facility] [address] [place] [address] Dr. Cami Bishop MCV (RBC) [Entitic vol] 88.3 fL Normal 80.0-94.0 [facility] Comment on above: Performed By: #### C BC #### [facility] [address] [place] [address] Dr. Cami Bishop MONO # 0.6 103/ul Normal 0.3-0.8 [facility] Comment on above: Performed By: #### C BC #### [facility] [address] [place] [address] Dr. Cami Bishop Monocytes/100 WBC (Bld) 11.2 % Normal 1.7-12.0 [facility] Comment on above: Performed By: #### C BC #### [facility] [address] [place] [address] Dr. Cami Bishop NEUT # 3.2 103/ul Normal 1.4-6.5 [facility] Comment on above: Performed By: #### C BC #### [facility] [address] [place] [address] Dr. Cami Bishop Neutrophils/100 WBC (Bld) 56.6 % Normal 43.0-75.0 [facility] Comment on above: Performed By: #### C BC #### [facility] [address] [place] [address] Dr. Cami Bishop Platelet mean volume (Bld) [Entitic vol] 9.6 fL Normal 9.5-13.5 [facility] Comment on above: Performed By: #### C BC #### [facility] [address] [place] [address] Dr. Cami Bishop PLT 229 103/ul Normal 150-450 [facility] Comment on above: Performed By: #### C BC #### [facility] [address] [address] [address] Cami Bishop RBC 5.13 106/ul Normal 4.70-6.10 [facility] Comment on above: Performed By: #### C BC #### [facility] [address] [place] [address] Dr. Cami Bishop WBC 5.6 103/ul Normal 4.0-11.0 [facility] Comment on above: Performed By: #### C BC #### [facility] [address] [place] [address] Dr. Cami Bishop FREE T3on 07-04-2022 FREE T3 2.50 pg/mlL Normal 2.18-3.98 [facility] Comment on above: Performed By: #### T SH, LIPID, FT3, T4, CMP #### [facility] [address] [place] [address] Dr. Cami Bishop GLYCOHEMOGLOBIN A1Con 2022 ADA RECOMMENDATION SEE BELOW Normal [facility] Comment on above: Result Comment: ADA RECOMMENDED LIMIT 4.0 - 6.0 ADA THERAPEUTIC TARGET < 7.0 ACTION SUGGESTED > 7.0 Performed By: #### A 1C #### [facility] [address] [place] [address] Dr. Cami Bishop Glucose [Mass/Vol] 105 mg/dL Normal [facility] Comment on above: Performed By: #### A 1C #### [facility] [address] [place] [address] Dr. Cami Bishop HbA1c (Bld) [Mass fraction] 5.3 % Normal 4.5-6.2 [facility] Comment on above: Performed By: #### A 1C #### [facility] [address] [place] [address] Dr. Cami Bishop LIPID PROFILEon 07-04-2022 CHOL-HDL RATIO NORM SEE BELOW Normal [place] Comment on above: Result Comment: 3.3 - 4.4 LOW RISK 4.4 - 7.1 AVERAGE RISK 7.1 - 11.0 MODERATE RISK >11.0 HIGH RISK Performed By: #### T SH, LIPID, FT3, T4, CMP #### [facility] [address] [address] [address] Cami Bishop Cholesterol [Mass/Vol] 123 mg/dL Normal <=200 [facility] Comment on above: Performed By: #### T SH, LIPID, FT3, T4, CMP #### [facility] [address] [place] [address] Dr. Cami Bishop Cholesterol in HDL [Mass/Vol] 39 mg/dL Critically low 40-60 [facility] Comment on above: Performed By: #### T SH, LIPID, FT3, T4, CMP #### [facility] [address] [address] [address] Cami Bishop Cholesterol in LDL [Mass/Vol] 55.6 mg/dL Normal [facility] Comment on above: Performed By: #### T SH, LIPID, FT3, T4, CMP #### [facility] [address] [place] [address] Dr. Cami Bishop Cholesterol.total/Ch olesterol in HDL [Mass ratio] 3.2 {ratio} Normal [facility] Comment on above: Performed By: #### T SH, LIPID, FT3, T4, CMP #### [facility] [address] [place] [address] Dr. Cami Bishop HDL NORMAL > or = 60 mg/dl - LO W CARDIOVASCULAR RISK <40 mg/dl - HIGH CARDIOVASCULAR RISK Normal [facility] Comment on above: Performed By: #### T SH, LIPID, FT3, T4, CMP #### [facility] [address] [place] [address] Dr. Cami Bishop LDL CALC NORMAL SEE BELOW Normal [facility] Comment on above: Result Comment: <100 mg/dl OPTIMAL 100 - 129 mg/dl NEAR OR ABOVE OPTIMAL 130 - 159 mg/dl BORDERLINE HIGH 160 - 189 mg/dl HIGH >190 mg/dl VERY HIGH Performed By: #### T SH, LIPID, FT3, T4, CMP #### [facility] [address] [address] [address] Cami Bishop Triglyceride [Mass/Vol] 142 mg/dL Normal <=150 [facility] Comment on above: Performed By: #### T SH, LIPID, FT3, T4, CMP #### [facility] [address] [address] [address] Cami Bishop VLDL CALC 28.4 mg/dL Normal [facility] Comment on above: Performed By: #### T SH, LIPID, FT3, T4, CMP #### [facility] [address] [address] [address] Cami Bishop PROF 14(COMP METB)on 023 Albumin [Mass/Vol] 3.8 g/dL Normal 3.4-5.0 [facility] Comment on above: Performed By: #### T SH, LIPID, FT3, T4, CMP #### [facility] [address] [address] [address] Cami Bishop Albumin/Globulin [Mass ratio] 1.3 {ratio} Normal [facility] Comment on above: Performed By: #### T SH, LIPID, FT3, T4, CMP #### [facility] [address] [address] [address] Cami Bishop ALP [Catalytic activity/Vol] 44 U/L Critically low 46-116 [facility] Comment on above: Performed By: #### T SH, LIPID, FT3, T4, CMP #### [facility] [address] [address] [address] Cami Bishop ALT [Catalytic activity/Vol] 36 U/L Normal 16-63 [facility] Comment on above: Performed By: #### T SH, LIPID, FT3, T4, CMP #### [facility] [address] [address] [address] Cami Bishop Anion gap [Moles/Vol] 9.3 mmol/L Normal [facility] Comment on above: Performed By: #### T SH, LIPID, FT3, T4, CMP #### [facility] [address] [address] [address] Cami Bishop AST [Catalytic activity/Vol] 22 U/L Normal 15-37 [facility] Comment on above: Performed By: #### T SH, LIPID, FT3, T4, CMP #### [facility] [address] [place] [address] Dr. Cami Bishop Bilirubin [Mass/Vol] 1.4 mg/dL Critically high 0.2-1.0 [facility] Comment on above: Performed By: #### T SH, LIPID, FT3, T4, CMP #### [facility] [address] [place] [address] Dr. Cami Bishop Calcium [Mass/Vol] 8.9 mg/dL Normal 8.5-10.1 [facility] Comment on above: Performed By: #### T SH, LIPID, FT3, T4, CMP #### [facility] [address] [place] [address] Dr. Cami Bishop Chloride [Moles/Vol] 98 mmol/L Normal 98-107 [facility] Comment on above: Performed By: #### T SH, LIPID, FT3, T4, CMP #### [facility] [address] [place] [address] Dr. Cami Bishop CO2 [Moles/Vol] 32.7 mmol/L Critically high 21.0-32.0 [facility] Comment on above: Performed By: #### T SH, LIPID, FT3, T4, CMP #### [facility] [address] [place] [address] Dr. Cami Bishop Creatinine [Mass/Vol] 0.95 mg/dL Normal 0.70-1.30 [facility] Comment on above: Performed By: #### T SH, LIPID, FT3, T4, CMP #### [facility] [address] [place] [address] Dr. Cami Bishop EGFR-AF ERITREAN >60 Normal >=60 [facility] Comment on above: Performed By: #### T SH, LIPID, FT3, T4, CMP #### [facility] [address] [place] [address] Dr. Cami Bishop EGFR-NON AF ERITREAN >60 Normal >=60 [facility] Comment on above: Performed By: #### T SH, LIPID, FT3, T4, CMP #### [facility] [address] [place] [address] Dr. Cami Bishop Globulin (S) [Mass/Vol] 2.9 g/dL Normal [facility] Comment on above: Performed By: #### T SH, LIPID, FT3, T4, CMP #### [facility] [address] [place] [address] Dr. Cami Bishop Glucose [Mass/Vol] 102 mg/dL Normal 74-106 [facility] Comment on above: Performed By: #### T SH, LIPID, FT3, T4, CMP #### [facility] [address] [place] [address] Dr. Cami Bishop Potassium [Moles/Vol] 4.0 mmol/L Normal 3.5-5.1 [facility] Comment on above: Performed By: #### T SH, LIPID, FT3, T4, CMP #### [facility] [address] [place] [address] Dr. Cami Bishop Protein [Mass/Vol] 6.7 g/dL Normal 6.4-8.2 [facility] Comment on above: Performed By: #### T SH, LIPID, FT3, T4, CMP #### [facility] [address] [place] [address] Dr. Cami Bishop Sodium [Moles/Vol] 136 mmol/L Normal 136-145 [facility] Comment on above: Performed By: #### T SH, LIPID, FT3, T4, CMP #### [facility] [address] [place] [address] Dr. Cami Bishop Urea nitrogen [Mass/Vol] 14.0 mg/dL Normal 7.0-18.0 [facility] Comment on above: Performed By: #### T SH, LIPID, FT3, T4, CMP #### [facility] [address] [place] [address] Dr. Cami Bishop Urea nitrogen/Creatinine [Mass ratio] 14.7 mg/mg Normal [facility] Comment on above: Performed By: #### T SH, LIPID, FT3, T4, CMP #### [facility] [address] [place] [address] Dr. Cami Bishop T4on 07-04-2022 T4 [Mass/Vol] 6.80 ug/dL Normal 4.50-12.10 [facility] Comment on above: Performed By: #### T SH, LIPID, FT3, T4, CMP #### [facility] [address] [place] [address] Dr. Cami Bishop TSHon 07-04-2022 TSH 2.193 uIU/mL Normal 0.358-3.740 [facility] Comment on above: Performed By: #### T SH, LIPID, FT3, T4, CMP #### [facility] [address] [place] [address] Dr. Cami Bishop VITAMIN D 25 OHon 07-04-2022 VIT D 25-OH 35.1 ng/mL Normal [facility] Comment on above: Performed By: #### V ROSELINE PSASC #### [facility] [address] [place] [address] Dr. Cami Bishop VIT D RANGES SEE BELOW Normal [facility] Comment on above: Result Comment: <20 ng/mL Vit D deficient 20 - <30 ng/mL Vit D insufficient 30 - 100 ng/mL Vit D sufficient >100 ng/mL Potential Toxicity Performed By: #### V ROSELINE, PSASC #### [facility] [address] [place] [address] Dr. Cami Bishop ER URINE PROFILEon 2 Bilirubin Ql (U) Negative Normal NEGATIVE [facility] Comment on above: Performed By: #### T SH, LIPID, FT3, T4, CMP #### [facility] [address] [place] [address] Dr. Cami Bishop Clarity (U) CLEAR Normal CLEAR [facility] Comment on above: Performed By: #### T SH, LIPID, FT3, T4, CMP #### [facility] [address] [address] [address] Cami Bishop Color (U) YELLOW Normal YELLOW [facility] Comment on above: Performed By: #### T SH, LIPID, FT3, T4, CMP #### [facility] [address] [address] [address] Cami REID A micrscopic examination will be performed if indicated. Normal [facility] Comment on above: Performed By: #### T SH, LIPID, FT3, T4, CMP #### [facility] [address] [address] [address] Cami Bishop Glucose Ql (U) Negative Normal NEGATIVE [facility] Comment on above: Performed By: #### T SH, LIPID, FT3, T4, CMP #### [facility] [address] [place] [address] Dr. Cami Bishop Hemoglobin Ql (U) Negative Normal NEGATIVE [facility] Comment on above: Performed By: #### T SH, LIPID, FT3, T4, CMP #### [facility] [address] [place] [address] Dr. Cami Bishop Ketones Ql (U) Negative Normal NEGATIVE [facility] Comment on above: Performed By: #### T SH, LIPID, FT3, T4, CMP #### [facility] [address] [place] [address] Dr. Cami Bishop LEUKOCYTES Negative Normal NEGATIVE [facility] Comment on above: Performed By: #### T SH, LIPID, FT3, T4, CMP #### [facility] [address] [address] [address] Cami Bishop Nitrite Ql (U) Negative Normal NEGATIVE [facility] Comment on above: Performed By: #### T SH, LIPID, FT3, T4, CMP #### [facility] [address] [place] [address] Dr. Cami Bishop pH (U) 6.0 [pH] Normal 5-9 [facility] Comment on above: Performed By: #### T SH, LIPID, FT3, T4, CMP #### [facility] [address] [address] [address] Cami Bishop SPEC GRAVITY 1.020 Normal 1.005-<=1.025 [facility] Comment on above: Performed By: #### T SH, LIPID, FT3, T4, CMP #### [facility] [address] [address] [address] Cami Bishop UA PROTEIN Negative Normal NEGATIVE/ TRACE [facility] Comment on above: Performed By: #### T SH, LIPID, FT3, T4, CMP #### [facility] [address] [address] [address] Cami Bishop UR MICRO IND NOT INDICATED Normal [facility] Comment on above: Performed By: #### T SH, LIPID, FT3, T4, CMP #### [facility] [address] [address] [address] Cami Bishop Urobilinogen Qn (U) 1.0 {Dia'U}/dL Normal 0.2 - 1. 0 [facility] Comment on above: Performed By: #### T SH, LIPID, FT3, T4, CMP #### [facility] [address] [address] [address] Cami Bishop XR LSPINE 2_3 VIEWSon [...] by: DAMIR MACHADO Date: 2022-01-11 13:56 Normal [facility] Consent for COVID Vaccineon 08-06-2020 SARS-CoV-2 (COVID-19) RNA LIN+probe Ql (Unsp spec) [id number]. 00CD:127 [facility] Consent for COVID Vaccineon 07-01-2020 SARS-CoV-2 (COVID-19) RNA LIN+probe Ql (Unsp spec) [id number]#1. 00CD:127 [facility] Consent for Treatmenton 06-20 Consent for Treatment [id number]#1. 00CD:127 [facility] Coding Summary.on 06-29-2020 Coding Summary. CODING DATE: 06/29/2020 FINAL [facility] STATUS: PAYOR: Medicare APC DESCRIPTION 1492 New [...] Manuel CphT Date Saved: 06/29/2020 11:45 am [facility] Ambulatory Clinical Summaryo n 01-26-2020 Ambulatory Clinical Summary {[id number]}CD:[id number] [facility] Ambulatory Clinical Summaryo n 12-16-2019 Ambulatory Clinical Summary {[id number] }CD:[id number] [facility] General Surgery Office/Clini c Noteon 12-16-2019 General Surgery Office/Clinic Note Chief Complaint post operative follow up HPI Staff 14 day post operative follow up post excisional biopsy from left occipital scalp completed at [facility] on 12/03. Denies pain; no use [...] History of gout Hyperlipemia Lipoma of scalp WA (myocardial infarction) Obstructive sleep apnea Pilar cyst [...] Date Status diphtheria/pertussis, acel/tetanus adult 10/26/2014 Given [facility] Comment on above: Result Comment: Elec tronically Signed By: CRISTINA MARTIN, Joseph Ledesma\Date and Time Signed: 12/16/19 13:32 EDT Operative Reporton 0 Operative Report [id number]#1.0 0CD:127 Normal [facility] Pathology Noteon 12-08-2019 Pathology Note [id number]#1.0 0CD:127 [facility] Facesheeton 11-13-2019 Facesheet [id number]#1.0 0CD:127 [facility] Physician Referralon 020 Physician Referral [id number]#1.00 CD:127 Normal [facility] Cardiovascular Lab Reporton 03-06-2018 Cardiovascular Lab Report [facility] Patient Name: Eh [facility] García MR #: [id number] of Physician: Sheryl Stratton M.D.Division of Service Date: 03/05/2018Cardiology Birthdate: [birth year]Adult Cardiovascular Room #: 3CD [id number] [facility] [place], [place] [address] Fax Cardiovascular Laboratory ReportFINAL IMPRESSIONS:1. Severe stenosis of the left anterior descending coronary artery, successfully treated by balloon angioplasty and Synergy drug-eluting stent placement.2. Severe stenosis of the posterior descending artery, successfully treated by balloon angioplasty and Synergy drug-eluting stent placement.3. Moderate angiographic, non-hemodynamically significant stenosis of the right coronary artery as assessed by instantaneous wave-free ratio (iFR).4. Maum-ru-axaianfv in-stent restenosis of the mid left anterior [...] rehabilitation.5. Follow up with me in the [facility] in the next 2 to 4 [...] the left radial arteryunder ultrasound guidance. A 6-Palestinian Glidesheath was inserted withoutdifficulty. Coronary angiography was performed using JR4 and [id number]. After reviewing the images, it was elected to proceed with aninterventional procedure.A 6-Palestinian XB3.5 guide catheter was advanced over J-wire and coaxiallyengaged into the left main coronary ostium. The [place] pressure wire wasadvanced through the catheter with [...] wire trauma. The XB guide catheter wasremoved.A 6-Palestinian JR4 guide catheter was advanced over the J-wire and coaxiallyengaged into the right coronary ostium. A new Cubikal pressure wire wasadvanced through the catheter with [...] restenosis. Distal to a small adjacent diagonal, eidbji-xu-xashnv left anterior descending shows a short segment [...] 03/05/2018/01:31 P/Moraima Ruelas M.D.Date Trans: 03/06/2018 12:18 P/Marino_JN:[id number]: Romel Quijano M.D. [address], [facility] [id number] [facility] Encounters Encounter Date Encounter Type Care Provider Facility Start: 10-08-2023 End: 10-08-2023 ambulatory DAKOTA GARCIA Not Available Start: 09-27-2023 [facility] Start: 09-27-2023 ambulatory [facility] Start: 09-27-2023 End: 09-28-2023 Evaluation and management of inpatient NATHAN ARROYO [facility] Start: 07-09-2023 End: 07-09-2023 ambulatory DAKOTA GAYSTON Not Available Start: 04-22-2023 End: 04-23-2023 ambulatory Navdeep Porter MD Facility:[facility] Start: 01-07-2023 End: 01-07-2023 ambulatory CHRISTOPHERAB JESSENIA [facility] Start: 07-04-2022 End: 07-05-[address] ROMEL QUIJANO . Facility:[facility] Start: 01-11-2022 End: 01-11-[address] ROMEL QUIJANO . Facility: Start: 04-07-2018 End: 04-08-2018 Patient encounter procedure DEFAULT PHYSICIAN Facility:[facility] Start: 03-05-2018 End: 03-06-2018 Patient encounter procedure EHAB Lissette PALAFOXJOSHUA Facility:[facility] Procedures Date Procedure Procedure Detail Performing Clinician Start: 07-04-[address] DESIRAE QUIJANO . Comment on above: Performed By: #### V ITAD, PSASC #### [facility] [address] [place] [address] Dr. Cami Bishop Start: 03-05-2018 R HRT CORONARY ARTERY ANGIO [facility] Payers Date Payer Category Payer Medicare 1958 Private Health Insurance [id number] 1945 Unknown [id number] [id number] 1945 Unknown [id number] [id number] 1945 Unknown [id number] 2.16.84 [id number] 1945 Unknown [id number] 2.16.84 [id number] 1945 Unknown [id number] 2.16. [id number] 1945 Unknown [id number] 2.16.84 [id number] 1945 Unknown [id number] 2.16.84 [id number] Unknown Progress note 09-28-2023 Note Date & Type Note Facility 09-28-2023 Note Hospital Medicine Daily Progress Note - 09/28/2023 8:28 AM; Room: [facility]- Admission: 09/27/2023 10:47 AM; Length of stay: 1 days THE HOSPITALIST TEAM PREFERS TO USE [employer] CHAT FOR COMMUNICATION 7AM-7PM. IF I DO NOT RESPOND WITHIN 15 MINUTES, PLEASE PAGE ME/CALL THROUGH THE SCHOLASTIC APTITUDE TEST GRADER. FROM 7PM-7AM, PLEASE PAGE [phone](COVR) Code Status: Full Code Barriers to Discharge: none Expected Discharge Date: today Discharge Destination: home Overview Patient is seen for evaluation and management of chest pain. Subjective Patient resting in bed, he is without chest pain, no lightheadedness, fever, chills, or sob Physical Exam Visit Vitals BP 149/82 (BP Location: Right arm) Pulse 71 Temp 36.6 ???C (97.8 ???F) (Temporal) Resp 17 Intake/Output Summary (Last 24 hours) at 09/28/2023 0828 Last data filed at 09/28/2023 0600 Gross per 24 hour Intake 1290.03 ml Output 670 ml Net 620.03 ml Physical Exam Vitals and nursing note reviewed. HENT: Mouth/Throat: Mouth: Mucous membranes are moist. Eyes: Pupils: Pupils are equal, round, and reactive to light. Cardiovascular: Rate and Rhythm: Regular rhythm. Bradycardia present. Pulses: Normal pulses. Heart sounds: Normal heart sounds. Pulmonary: Effort: Pulmonary effort is normal. Breath sounds: Normal breath sounds. Abdominal: Palpations: Abdomen is soft. Tenderness: There is no abdominal tenderness. Comments: Obese Musculoskeletal: General: Normal range of motion. Cervical back: Normal range of motion. Skin: General: Skin is warm. Capillary Refill: Capillary refill takes less than 2 seconds. Comments: Clear site to left wrist no bruising or swelling Neurological: Mental Status: He is alert and oriented to person, place, and time. Estimated body mass index is 39.54 kg/m??? as calculated from the following: Height as of this encounter: 1.778 m (5' 10 ). Weight as of this encounter: 125 kg (275 lb 9.2 oz). Active Inpatient Problems Principal Problem: Abnormal stress test Assessment and Plan Coronary artery disease status post balloon angioplasty of the LAD 09/26 Optimal medical therapy should include dual antiplatelet therapy, moderate to high intensity statin therapy, a beta-yazmin and an RAAS inhibitor Dual antiplatelet therapy x 1 month uninterrupted then Plavix can be held x 6 weeks for knee surgery then resume DAPT Follow up with cardiology in 1-2 weeks Hypertension continue meds continue Hyperlipidemia continue statin and diet Obstructive sleep apnea CPAP Malnutrition Attestation: Comment: VTE Prophylaxis: DAPT Scheduled Meds amLODIPine, 2.5 mg, oral, BID aspirin, 81 mg, oral, Daily with breakfast clopidogrel, 75 mg, oral, Daily hydroCHLOROthiazide, 12.5 mg, oral, Daily lisinopril, 40 mg, oral, Daily metoprolol tartrate, 25 mg, oral, BID simvastatin, 40 mg, oral, Daily Pertinent Investigations Hematology: Results from last 7 days Lab Units 09/28/23 0436 WBC AUTO 10*3/uL 7.29 HEMOGLOBIN g/dL 16.0 HEMATOCRIT % 46.5 MCV fL 92.3 PLATELETS AUTO 10*3/uL 278 Chemistry: Results from last 7 days Lab Units 09/28/23 0436 SODIUM mmol/L 134* POTASSIUM mmol/L 4.0 CHLORIDE mmol/L 102 CO2 mmol/L 25 BUN mg/dL 13 CREATININE mg/dL 0.75 GLUCOSE mg/dL 85 CALCIUM mg/dL 8.8 Results from last 7 days Lab Units 09/28/23 0436 AST U/L 18 ALT U/L 19 ALK PHOS U/L 31* BILIRUBIN TOTAL mg/dL 2.1* Historical Values: (Includes values prior to this admission) No results found for: PREALBUMIN , TSH , T3FREE , FREET4 , CORTISOL , FEV1 , SQA5LVK , DLCO , RVSP , HDL , LDL No results found for: [id number] , IRON , TIBC , C3 , C4 , EVONNE , CANCA , ASO , PSA , CEA , CA125 , CA199 , AFP , CA153 Imaging ECG 12 lead Sinus rhythm with frequent Premature ventricular complexes Left axis deviation Abnormal ECG When compared with ECG of 27-SEP-2023 11:20, (unconfirmed) Minimal criteria for Anterior infarct are no longer Present Confirmed by Alysha CARTER, L.S. (2) on 09/27/2023 2:33:24 PM ECG 12 lead Sinus rhythm with frequent Premature ventricular complexes Left axis deviation Low voltage QRS Cannot rule out Anterior infarct , age undetermined Abnormal ECG When compared with ECG of 05-MAR-2018 13:33, Premature ventricular complexes are now Present Nonspecific T wave abnormality has replaced inverted T waves in Inferior lead Confirmed by Pavan CARTER., L.S. (2) on 09/27/2023 2:30:02 PM Cardiac catheterization Cardiovascular Laboratory Report FINAL IMPRESSIONS: Severe, in-stent restenosis of the left anterior descending coronary artery successfully treated by balloon angioplasty and Shockwave intravascular lithotripsy Patent stent in the distal portion of the left anterior descending coronary artery Mild to moderate disease of the mid and distal left anterior descending coronary artery Modera (more content not included)... [facility] Progress note 09-27-2023 Note Date & Type Note Facility 09-27-2023 Note Clinician attempted AOD brief intervention. Pt reports he only drinks a glass of wine or a beer around 1x a week. Pt denies having concerns regarding his alcohol use. Per pt report, pt is drinking within recommended limits. Pt did not need brief intervention at this time. [facility] Progress note 09-27-2023 Note Date & Type Note Facility 09-27-2023 Note 09/27/23 1423 Admission Assessment Questions Verify insurance with patient Yes Do you understand medical disease or what brought you into the hospital? Yes Who is your current PCP? Romel Quijano MD Can I schedule a follow up appointment for you at the time of discharge? No Do you understand why you are taking your current medications? Yes Are you taking your medications as prescribed? Yes Did patient provide teach back? Yes Would you like use our pharmacy [facility] to fill your new medications at the time of Discharge? No Does the patient have a geriatric case manager assigned to them through their insurance? No Living Arrangement (Current/Prior to Hospitalization) Private residence;Home self care (lives alone in one story home. Does not have entry stairs) Does the patient have history of HHC or SNF? No Assistive Device Cane;Other (Comment) (Bipap machine at night - [employer] Patient's goal for discharge home Was patient reminded that goal for discharge is 11am? Yes Does the patient have transportation at discharge? Yes Type of Residence/Post Acute Needs Private residence Is PT/OT appropriate? No Is PT/OT ordered? No Is SW consult appropriate? No Is SW consult ordered? No Do you understand the benefits of MyChart? Yes Were you able to send link and activate MyChart? No [facility] Clinical Note 09-27-2023 Note Date & Type Note Facility 09-27-2023 Note Hospital Medicine History and Physical 09/27/2023 1:59 PM THE HOSPITALIST TEAM PREFERS TO USE [employer] CHAT FOR COMMUNICATION 7AM-7PM. IF I DO NOT RESPOND WITHIN 15 MINUTES, PLEASE PAGE ME/CALL THROUGH THE SCHOLASTIC APTITUDE TEST GRADER. FROM 7PM-7AM, PLEASE PAGE [phone](COVR) Chief Complaint No chief complaint on file. History of Present Illness Sonia Plasencia is an 78 y.o. male admitted following undergoing successful left heart cath and balloon angioplasty via left radial artery for part of preoperative evaluation. Patient admitted for overnight observation. 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 Patient postprocedure seen stable comfortable in bed in pleasant mood and no distress chart reviewed meds reviewed. Angioplasty revealed patent stent in the right coronary artery moderate to severe disease of the crux of the right coronary artery which is unchanged from previous angiographic study normal global left ventricular systolic function was noted. Patient is chest pain-free last episode of chest pain was a week back while he was driving felt discomfort in the left upper chest nonradiating no change in symptoms lasting for few seconds Review of System and Physical Exam Temp: [36.8 ???C (98.2 ???F)] 36.8 ???C (98.2 ???F) Heart Rate: [66-79] 68 Resp: [16-17] 17 BP: (106-157)/(73-85) 106/74 Physical Exam Vitals reviewed. Constitutional: Appearance: Normal appearance. He is obese. HENT: Head: Normocephalic and atraumatic. Right Ear: Tympanic membrane, ear canal and external ear normal. Left Ear: Tympanic membrane, ear canal and external ear normal. Nose: Nose normal. Mouth/Throat: Mouth: Mucous membranes are moist. Pharynx: Oropharynx is clear. Eyes: Extraocular Movements: Extraocular movements intact. Conjunctiva/sclera: Conjunctivae normal. Pupils: Pupils are equal, round, and reactive to light. Cardiovascular: Rate and Rhythm: Normal rate and regular rhythm. Pulmonary: Effort: Pulmonary effort is normal. Breath sounds: Normal breath sounds. Abdominal: General: Abdomen is flat. Bowel sounds are normal. Palpations: Abdomen is soft. Musculoskeletal: General: Normal range of motion. Cervical back: Normal range of motion and neck supple. Skin: General: Skin is warm and dry. Capillary Refill: Capillary refill takes less than 2 seconds. Neurological: General: No focal deficit present. Mental Status: He is alert. Mental status is at baseline. Psychiatric: Mood and Affect: Mood normal. Behavior: Behavior normal. Review of Systems Constitutional: Negative. HENT: Negative. Eyes: Negative. Respiratory: Negative. Cardiovascular: Negative. Gastrointestinal: Negative. Endocrine: Negative. Genitourinary: Negative. Musculoskeletal: Negative. Allergic/Immunologic: Negative. Neurological: Negative. Hematological: Negative. Psychiatric/Behavioral: Negative. Problem List Patient Active Problem List Diagnosis Date Noted Insulin resistance 02/08/2020 Arthritis of right knee 07/01/2019 Artificial knee joint present 03/24/2017 Difficulty walking 03/24/2017 Osteoarthritis of knee 01/29/2017 Obstructive sleep apnea syndrome 04/27/2013 Dyspnea 03/19/2012 Coronary atherosclerosis 03/18/2012 Essential hypertension 03/18/2012 Hyperlipidemia 03/18/2012 Old myocardial infarction 03/18/2012 Abnormal stress test 09/13/2023 Assessment and Plan Coronary artery disease status post balloon angioplasty of the LAD Aggressive risk factors modification continue dual antiplatelet therapy high intensity statin beta-yazmin and RAAS inhibitor continue telemetry repeat EKG in the morning, monitor for symptoms including chest pain if heparin will have cardiology to follow Hypertension continue meds continue CPAP for sleep apnea Hyperlipidemia continue statin and diet Insulin resistance diet last hemoglobin A1c was 5.11-week back Obstructive sleep apnea continue CPAP CODE STATUS full code VTE Prophylaxis: obs ----- Focus of this inpatient stay will remain on problems that need acute care setting for care. We will review available studies and will order additional labs, imaging and other studies as appropriate. As needed medicines are ordered as appropriate. VTE Prophylaxis will be ordered as appropriate. Please see above for management plan for individual hospital problems. Home medications are reviewed and will be continued as appropriate. Patient will be continued to be followed during this hospital stay by a member of [facility]. Past Medical History Past Medical History: Diagnosis Date Hyperlipidemia Hypertension Myocardial infarction (CMS/HCC) Sleep apnea Past Surgical Histo (more content not included)... [facility] Progress note 09-27-2023 Note Date & Type Note Facility 09-27-2023 Note Cardiovascular Labor atory Report FINAL IMPRESSIONS: Severe, in-stent restenosis of the left anterior descending coronary artery successfully treated by balloon angioplasty and Shockwave intravascular lithotripsy Patent stent in the distal portion of the left anterior descending coronary artery Mild to moderate disease of the mid and distal left anterior descending coronary artery Moderate to severe disease of a small caliber first obtuse marginal branch of the left circumflex coronary artery Patent stents in the right coronary artery Moderate to severe disease at the crux of the right coronary artery; this appears unchanged from prior angiography Normal global left ventricular systolic function by noninvasive imaging RECOMMENDATIONS: Aggressive cardiovascular risk factor modification Optimal medical therapy should include dual antiplatelet therapy, moderate to high intensity statin therapy, a beta-yazmin and an RAAS inhibitor Recommend an SGLT2 inhibitor or GLP-1 receptor agonist if the patient an SGLT2 inhibitor or GLP-1 receptor agonist if the patient is currently being treated for diabetes or prediabetes Dual antiplatelet therapy must be continued uninterrupted for a minimum of 1 month Plavix can be held after 6 weeks and the patient may have knee surgery after 6 to 8 weeks; resume dual antiplatelet therapy postoperatively when acceptable Should the patient experience recurrent in-stent restenosis, will hopefully be able to offer drug eluting balloon therapy in the near future Follow-up with Dr. Ruelas in the next 1 to 2 months PROCEDURES: Ultrasound-guided access to the left radial artery, bilateral selective coronary angiography via a left radial approach, balloon angioplasty, Shockwave intravascular lithotripsy of the left anterior descending coronary artery METHODS: After risks, benefits, and alternatives were explained, written informed consent was obtained. The patient was prepped and draped in usual sterile fashion over the left wrist. Local infiltration anesthesia was achieved of the left wrist. Using a micropuncture kit, access to the left radial artery was obtained. A 6 Palestinian glide sheath was inserted without difficulty. Bilateral selective coronary angiography was performed using JR 4.0 and JL 4.0 catheters. After reviewing the images, it was elected to proceed with an interventional procedure. A 6 Palestinian XB 3.5 guide catheter was advanced over a J-wire and coaxially engaged into the left main ostium. A 0.014 Run-through NS wire was advanced through the catheter, across the suspect stenosis and positioned distally. Balloon angioplasty was performed sequentially; initially, a 3.0 x 15 mm noncompliant balloon was used at high pressures. Given residual stenosis, a 3.0 x 12 mm Shockwave balloon was used for intravascular lithotripsy. Repeat images showed a satisfactory result. Intracoronary nitroglycerin was administered. The wire was removed. Final images showed CELSO-3 flow with no dissection thrombus or distal wire trauma. At this point it was elected to conclude the procedure. The catheters were removed. The radial sheath was removed with application of a TR band per protocol to achieve optimal hemostasis. Overall the patient tolerated the procedure well. He was to be transferred to the holding area in stable condition. There were no complications. FINDINGS: Hemodynamics: AO 135/87 [102] LEFT VENTRICULOGRAPHY: This was not performed. Ejection fraction is 56% by noninvasive stress test. CORONARY ARTERIES: Left main coronary artery: This arises from the left coronary cusp and bifurcates into the left anterior descending and left circumflex coronary arteries. It is free of significant stenosis. Left anterior descending coronary artery: Baseline imaging shows a mid vessel stenosis with an 85% in-stent restenosis. This was reduced to 0% by balloon angioplasty and shockwave intravascular lithotripsy. Distal to the stent there is a smooth 30 to 40% tapering. There is a mid to distal vessel stent that is widely patent. There is a 50% stenosis just distal to the stent. The distal left anterior descending is of small caliber. Left circumflex coronary artery: This is patent with mild luminal irregularities. Small to moderate-sized obtuse marginal shows a proximal 60% stenosis. It is too millimeters in size or less distally. A branching second obtuse marginal shows luminal irregularities. Right coronary artery: This this is a dominant vessel arising from the right coronary cusp and giving rise to the posterior descending and posterolateral branches. There are patent stents in the proximal portion and the midportion of the procedure descending artery. There is a calcific 40% stenosis just distal to the proximal stent. The crux shows a 60 to 70% stenosis that was reported previously. INDICATIONS: Abnormal stress test, inferoapical ischemia, preo (more content not included)... [facility] Progress note 01-07-2023 Note Date & Type Note Facility 01-07-2023 Note [facility] Cardiology Clinic Note Chief Complaint: Patient here [...] and in the intensive care unit in [facility]. She had a bowel perforation with [...] assessed by instantaneous wave-free ratio (iFR). 4. [id number] in-stent restenosis of the mid left anterior [...] 5. Follow up with me in the [facility] in the next 2 to 4 [...] and reported i (more content not included)... [facility] Summary Purpose Family History No [...] and content) DATE CREATED AUTHOR 04/28/[address] [facility] DATE CREATED AUTHOR AUTHOR'S ORGANIZ ATION 10/26/2020 [facility] DATE CREATED AUTHOR AUTHOR'S ORGANIZ ATION 07/09/2022 [facility] DATE CREATED AUTHOR AUTHOR'S ORGANIZ ATION 05/03/2023 [facility] DATE CREATED AUTHOR AUTHOR'S ORGANIZ ATION 10/01/2023 [facility] DATE CREATED AUTHOR AUTHOR'S ORGANIZ ATION 10/10/2023 [facility] EPIC FOR RECORDS PERTAINING TO PATIENTS WHO ARE [...] BE BASED ON THE PRIMARY CLINICAL RECORDS. [employer] [facility]. provides no warranty or guarantee of the accuracy or completeness of information in this document.
[2023-10-15 11:36] LABS: Alanine Aminotransferase 29 U/L (16-63); Albumin Globulin Ratio 1.2; Albumin Level 3.7 g/dL (3.4-5.0); Alkaline Phosphatase 43 U/L (46-116); Anion Gap 9.8; Aspartate Amino Transferase 18 U/L (15-37); BUN Creatinine Ratio 14.3; Bilirubin Total 1.4 mg/dL (0.2-1.0); Calcium 8.6 mg/dL (8.5-10.1); Carbon Dioxide 29.8 mmol/L (21.0-32.0); Chloride 103 mmol/L (98-107); Estimated GFR (African America >60 (>=60); Estimated GFR (Non-African Ame >60 (>=60); Glucose 102 mg/dL (74-106); Potassium 4.6 mmol/L (3.5-5.1); Sodium 138 mmol/L (136-145); Total Protein 6.7 g/dL (6.4-8.2)
== END 2023-10-15 10:24 | disposition home or self-care (01) ==
LOC: LAB 10:24
PROVIDERS: PCP Family Medicine; Visit Provider Family Medicine
DX: K76.0 Fatty (change of) liver, not elsewhere classified (principal)
CPT/HCPCS: 36415; 80053

== ENCOUNTER 2024-05-06 12:03 | Outpatient (OUT) | payer MEDICARE, SELFPAY ==
--- OUTSIDE RECORDS SUMMARY | 2024-05-06 12:23 | XMS_ITS | CCD ---
Author Organization [facility] Providers Care Manager Membership Name Role Phone PHYSICIAN, DEFAULT Unavailable Unavailable PHYSICIAN, DEFAULT Unavailable Unavailable HOY, ROMEL Unavailable Unavailable [facility] Unavailable Unavailable [place] A Unavailable Unavailable HOY, ROMEL Unavailable Unavailable HOY, ROMEL Unavailable Unavailable [facility] Unavailable Unavailable [place] A Unavailable Unavailable [...] MARTIN, Navdeep Dodd Attending Unavailable [facility] Attending Unavailable [facility] Attending Unavailable KAREY HASSAN Admitting Unavailable NATHAN ARROYO Attending Unavailable [facility] Referring Unavailable [facility] Referring Unavailable DAKOTA BRYANT Referring Unavailable DAKOTA BRYANT Referring Unavailable DAKOTA BRYANT Attending Unavailable JOSEDAKOTA DOWLING Referring Unavailable JOSEDAKOTA MAYO Attending Unavailable JOSEDAKOTA MAYO Referring Unavailable DAKOTA BRYANT Referring Unavailable DAKOTA BRYANT Admitting Unavailable DAKOTA BRYANT Attending Unavailable DONNA TAYLOR Consulting Unavailable MISA SNYDER Consulting Unavailable Macie MARTIN, Romel Fowler Primary Care Provider [phone] DAKOTA BRYANT Attending Unavailable DAKOTA BRYANT Attending Unavailable SHELDON HANDLEY Attending Unavailable DAKOTA BRYANT Attending Unavailable DAKOTA BRYANT Referring Unavailable SHEREE DIAZ Attending Unavailable DAKOTA BRYANT Referring Unavailable BAKARI HUITRON Attending Unavailable JOSE, DAKOTA Mclaughlin Referring Unavailable JOSE, DAKOTA Mclaughlin Attending Unavailable ASHER, JONA Attending Unavailable JOSE, DAKOTA Mclaughlin Referring Unavailable ASHER, JONA Attending Unavailable JOSE, DAKOTA Mclaughlin Referring Unavailable MAUREEN, ADRIANA Attending Unavailable JOSE, DAKOTA Mclaughlin Referring Unavailable AHSER, JONA Attending Unavailable JOSE, DAKOTA Mclaughlin Referring Unavailable JOSE, DAKOTA Mclaughlin Attending Unavailable JOSE, DAKOTA Mclaughlin Referring Unavailable MAUREEN, ADRIANA Attending Unavailable JOSE, DAKOTA A Referring Unavailable ASHER, JONA Attending Unavailable JOSE, DAKOTA A Referring Unavailable MAUREEN, ADRIANA Attending Unavailable JOSE, DAKOTA A Referring Unavailable ASHER, JONA Attending Unavailable JOSE, DAOKTA A Referring Unavailable MAUREEN, ADRIANA Attending Unavailable JOSE, DAKOTA A Referring Unavailable ASHER, JONA Attending Unavailable JOSE, DAKOTA A Referring Unavailable MAUREEN, ADRIANA Attending Unavailable JOSE, DAKOTA A Referring Unavailable ASHER, JONA Attending Unavailable JOSE, DAKOTA A Referring Unavailable ASHER, JONA Attending Unavailable JOSE, DAKOTA A Referring Unavailable ASHER, JONA Attending Unavailable JOSE, DAKOTA Mclaughlin Referring Unavailable JOSE, DAKOTA Mclaughlin Attending Unavailable Allergies Allergy Classification Reported Allergen(s) Allergy Type Date of Onset Reaction(s) Facility Quinolones (antibiotic) (1 source) levoFLOXacin; Translations: [LEVOFLOXACIN] Drug Allergy 4 [facility] Repository (1 source) 94703,00; Translations: [55839,00] Propensity to adverse reactions (disorder) 9 [facility] Repository (2 sources) levoFLOXacin; Translations: [LEVOFLOXACIN] Drug Allergy 3 The [facility] Repository (9 sources) levoFLOXacin Drug Allergy 3 [facility] Medications Current Medications Medication Drug Class(es) Dates Sig (Normalized) Sig (Original) acetaminophen 500 mg oral tablet (9 sources) take 2 tablets by mouth every six hours as needed acetaminophen (Tylenol) 500 MG tablet Take 1,000 mg by mouth every 6 (six) hours if needed Active amLODIPine 5 mg oral tablet (9 sources) Dihydropyridine Calcium Channel Yazmin amLODIPine (Norvasc) 5 MG tablet 1 (one) time each day at the same time Active aspirin 81 mg chewable tablet (9 sources) Platelet Aggregation Inhibitor, Nonsteroidal Anti-inflammatory Drug take 1 tablet by mouth once daily aspirin 81 MG chewable tablet Chew 1 tablet every day by oral route. Active clopidogrel 75 mg oral tablet (9 sources) P2Y12 Platelet Inhibitor take 1 tablet by mouth in the morning clopidogrel (Plavix) 75 MG tablet Take 75 mg by mouth in the morning. Active docosahexaenoic acid 120 mg / eicosapentaenoic acid 180 mg oral capsule (9 sources) omega-3 (fish oi l) 1000 MG capsule 1 capsule 1 (one) time each day at the same time Active hydroCHLOROthiazide 12.5 mg oral tablet (9 sources) Thiazide Diuretic take 1 tablet by mouth in the morning hydroCHLOROthiazide (HYDRODiuril) 12.5 MG tablet Take 12.5 mg by mouth in the morning. Active lisinopril 40 mg oral tablet (9 sources) Angiotensin Converting Enzyme Inhibitor take 1 tablet by mouth in the morning lisinopril 40 MG tablet Take 40 mg by mouth in the morning. Active metFORMIN hydrochloride 500 mg oral tablet (9 sources) Biguanide Start: 08-24-19 23 take 1 tablet by mouth in the morning metFORMIN (Glucophage) 500 MG tablet Take 1 tablet by mouth in the morning and 1 tablet before bedtime. 08/23/2022 Active metoprolol tartrate 25 mg oral tablet (9 sources) beta-Adrenergic Yazmin metoprolol tartrate (Lopressor) 25 MG tablet every 12 (twelve) hours Active Multiple Vitamins-Minerals (Kyle Multivitamin for Men) tablet (9 sources) Multiple Vitamins-Minerals (Kyle Multivitamin for Men) tablet Kyle Multi Men Active niacin 500 mg oral tablet (9 sources) Nicotinic Acid niacin 500 MG ta blet 1 (one) time each day at the same time Active rosuvastatin calcium 20 mg oral tablet (9 sources) HMG-CoA Reductase Inhibitor Start: 10-28-19 24 End: 10-28-19 25 take 1 tablet by mouth in the morning rosuvastatin (Crestor) 20 MG tablet Take 20 mg by mouth in the morning. 10/28/2023 10/27/2024 Active simvastatin 40 mg oral tablet (9 sources) HMG-CoA Reductase Inhibitor take 1 tablet by mouth in the morning simvastatin (Zocor) 40 MG tablet Take 40 mg by mouth in the morning. Active Problems Active Problems Problem Classification Problem Date Documented Date Episodic/Chronic Cardiac dysrhythmias (1 source) Ventricular premature depolarization; Translations: [Ventricular premature depolarization] Onset: 12-04-2023 Chronic Complication of device; implant or graft (1 source) Stenosis of coronary artery stent, initial encounter; Translations: [STENOSIS OF CORONARY ARTERY STENT, INITIAL ENCOUNTER] Onset: 03-05-2018 Coronary atherosclerosis and other heart disease (9 sources) Atherosclerotic heart disease of [place] coronary artery with unstable angina pectoris; Translations: [...] [HYPERLIPIDEMIA, UNSPECIFIED] Onset: 03-05-2018 Chronic Essential hypertension (11 sources) Essential (primary) hypertension; Translations: [Hypertensive disorder] Onset: 03-05-2018 10-30-2023 Chronic Malaise and fatigue (1 source) Other fatigue; Translations: [OTHER FATIGUE] Onset: 07-09-2022 Episodic Nonspecific chest pain (2 sources) Other chest pain; Translations: [Other chest pain] Onset: 10-28-2023 Episodic Osteoarthritis (20 sources) Unilateral primary osteoarthritis, right knee; Translations: [Osteoarthritis of left knee joint] Onset: 03-18-2023 03-18-2023 Chronic Other aftercare (1 source) 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; Translations: [HOSPITAL PHARMACIST (CURRENT) USE OF ANTITHROMBOTICS/ANTIP LATELETS] Onset: 03-05-2018 Episodic Other aftercare (1 source) alf (current) use of aspirin; Translations: [FPC (CURRENT) USE OF ASPIRIN] Onset: 03-05-2018 Episodic Other aftercare (1 source) 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; Translations: [OTH [facility] CURRENT DRUG THERAPY] Onset: 07-09-2022 Episodic Other aftercare (1 source) 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; Translations: [HOSPITAL PHARMACIST (CURRENT) USE OF ORAL HYPOGLYCEMIC DRUGS] Onset: 03-05-2018 Other connective tissue disease (1 source) Presence of right artificial knee joint; Translations: [Presence of right artificial knee joint] Onset: 12-04-2023 Chronic Other connective tissue disease (11 sources) History of total knee arthroplasty; Translations: [Presence of left artificial knee joint] Onset: 03-18-2023 03-18-2023 Chronic Other connective tissue disease (12 sources) Artificial knee joint present; Translations: [Presence of right artificial knee joint] Onset: 12-31-2023 12-31-2023 Chronic Other lower respiratory disease (1 source) Shortness of breath; Translations: [SHORTNESS OF BREATH] Onset: 03-05-2018 Episodic Other nervous system disorders (12 sources) Other acute postprocedural pain; Translations: [Other acute postoperative pain] Onset: 12-07-2023 12-08-2023 Episodic Other nutritional; endocrine; and metabolic disorders (9 sources) Obesity; Translations: [Obesity, unspecified] Onset: 10-30-2023 10-30-2023 Chronic Other screening for suspected conditions (not mental disorders or infectious disease) (4 sources) Encounter for screening for malignant neoplasm of prostate; Translations: [Encounter for screening for malignant neoplasm of colon] Onset: 07-09-2022 Episodic Residual codes; unclassified (9 sources) Obstructive sleep apnea syndrome; Translations: [Obstructive sleep apnea (adult) (pediatric)] Onset: 10-30-2023 10-30-2023 Chronic Residual codes; unclassified (9 sources) Hypersomnia; Translations: [Hypersomnia, unspecified] Onset: 10-30-2023 10-30-2023 Chronic Residual codes; unclassified (9 sources) Daytime somnolence; Translations: [Other hypersomnia] Onset: 10-30-2023 10-30-2023 Chronic Residual codes; unclassified (1 source) Sleep apnea, unspecified; Translations: [SLEEP APNEA, UNSPECIFIED] Onset: 03-05-2018 Unclassified (2 sources) Unknown / UNK(Unknown) Onset: 03-05-2018 Unclassified (3 sources) LOW BACK PAIN, UNSPECIFIED; Translations: [LOW BACK PAIN, UNSPECIFIED] Onset: 01-15-2022 Unclassified (1 source) right knee degenerative joint disease Onset: 12-04-2023 Past or Other Problems Problem Classification Problem Date Documented Da te Episodic/Chronic Coma; stupor; and brain damage (9 sources) Daytime somnolence; Translations: [Somnolence] Onset: 10-30-2023 10-30-2023 Episodic Other lower respiratory disease (9 sources) Snoring; Translations: [Snoring] Onset: 10-30-2023 10-30-2023 Episodic Other lower respiratory disease (9 sources) Hypoxia; Translations: [Hypoxemia] Onset: 10-30-2023 10-30-2023 Episodic Unclassified (1 source) LOW BACK PAIN, UNSPECIFIED; Translations: [LOW BACK PAIN, UNSPECIFIED] Onset: 01-11-2022 Results Test Name Value Interpretation Reference Range Facility COMPLETE BLOOD COUNTon 12-05 Erythrocyte distribution width (RBC) [Ratio] 13.3 % Normal 11.5-15.0 [facility] Comment on above: Performed By: #### Casey BARTON, BMP #### [facility] ([id number]) [address] [address] [place] [address] Hematocrit (Bld) [Volume fraction] 36.5 % Low 39-49 [facility] Comment on above: Performed By: #### Casey BARTON, BMP #### [facility] ([id number]) [address] [address] [place] [address] Hemoglobin (Bld) [Mass/Vol] 12.4 g/dL Low 13.0-17.0 [facility] Comment on above: Performed By: #### Casey BCA, BMP #### [facility] ([id number]) [address] [address] [place] [address] MCH (RBC) [Entitic mass] 31.3 pg Normal 27-34 [facility] Comment on above: Performed By: #### Casey BCA, BMP #### [facility] ([id number]) [address] [place] [address] MCHC (RBC) [Mass/Vol] 33.9 g/dL Normal 32-36 [facility] Comment on above: Performed By: #### C BCA, BMP #### [facility] ([id number]) [address], [address] [place] [address] MCV (RBC) [Entitic vol] 93 fL Normal 80-100 [facility] Comment on above: Performed By: #### C BCA, BMP #### [facility] ([id number]) [address], [address] [place] [address] Platelet mean volume (Bld) [Entitic vol] 8.4 fL Normal 7-12 [facility] Comment on above: Performed By: #### C ORALIA, BMP #### [facility] ([id number]) [address], [address] [place] [address] Platelets (Bld) [#/Vol] 241 10*3/uL Normal 150-450 [facility] Comment on above: Performed By: #### C BCA, BMP #### [facility] ([id number]) [address] [place] [address] RBC COUNT 3.95 X10E12/L Low 4.10-5.70 [facility] Comment on above: Performed By: #### C BCA, BMP #### [facility] ([id number]) [address] [address] [place] [address] WBC (Bld) [#/Vol] 12.0 10*3/uL High 4.0-11.0 [facility] Comment on above: Performed By: #### C BCA, BMP #### [facility] ([id number]) [address], [address] [place] [address] COMPREHENSIVE METABOLIC PANE Jace 12-06-2023 Albumin [Mass/Vol] 3.3 g/dL Normal 3.2-5.3 [facility] Comment on above: Performed By: #### C BCA, BMP #### [facility] ([id number]) [address], [address] [place] [address] ALP [Catalytic activity/Vol] 22 U/L Low 39-130 [facility] Comment on above: Performed By: #### C BCA, BMP #### [facility] ([id number]) [address] [place] [address] ALT [Catalytic activity/Vol] 13 U/L Normal 0-40 [facility] Comment on above: Performed By: #### C BCA, BMP #### [facility] ([id number]) [address], [address] [place] [address] Anion gap [Moles/Vol] 7 mmol/L Normal 5-15 [facility] Comment on above: Performed By: #### C BCA, BMP #### [facility] ([id number]) [address], [address] [place] [address] AST [Catalytic activity/Vol] 17 U/L Normal 0-41 [facility] Comment on above: Performed By: #### C BCA, BMP #### [facility] ([id number]) [address] [place] [address] Bilirubin [Mass/Vol] 1.7 mg/dL High 0.3-1.2 [facility] Comment on above: Performed By: #### C BCA, BMP #### [facility] ([id number]) [address], [address] [place] [address] Calcium [Mass/Vol] 7.9 mg/dL Low 8.5-10.5 [facility] Comment on above: Performed By: #### C BCA, BMP #### [facility] ([id number]) [address], [address] [place] [address] Chloride [Moles/Vol] 98 mmol/L Normal 98-109 [facility] Comment on above: Performed By: #### C BCA, BMP #### [facility] ([id number]) [address] [place] [address] CO2 [Moles/Vol] 26 mmol/L Normal 22-32 [facility] Comment on above: Performed By: #### C BCA, BMP #### [facility] ([id number]) [address] [place] [address] Creatinine [Mass/Vol] 0.96 mg/dL Normal 0.70-1.20 [facility] Comment on above: Result Comment: METH OD TRACEABLE TO IDMS STANDARD Performed By: #### C ORALIA, BMP #### [facility] ([id number]) [address] [place] [address] GFR/1.73 sq M.predicted among non-blacks MDRD (S/P/Bld) [Vol rate/Area] 81 mL/min/{1.73_m2} Normal >59 [facility] Comment on above: Result Comment: Reported eGFR is based on the CKD-EPI 2020 equation that does not use a race coefficient. Performed By: #### C BCA, BMP #### [facility] ([id number]) [address] [place] [address] Glucose [Mass/Vol] 96 mg/dL Normal 65-99 [facility] Comment on above: Performed By: #### C BCA, BMP #### [facility] ([id number]) [address] [place] [address] Potassium [Moles/Vol] 3.9 mmol/L Normal 3.5-5.0 [facility] Comment on above: Performed By: #### C BCA, BMP #### [facility] ([id number]) [address], [address] [place] [address] Protein [Mass/Vol] 5.8 g/dL Low 6.0-8.0 [facility] Comment on above: Performed By: #### C BCA, BMP #### [facility] ([id number]) [address] [place] [address] Sodium [Moles/Vol] 131 mmol/L Low 134-146 [facility] Comment on above: Performed By: #### C BCA, BMP #### [facility] ([id number]) [address] [place] [address] Urea nitrogen [Mass/Vol] 17 mg/dL Normal 5-27 [facility] Comment on above: Performed By: #### C BCA, BMP #### [facility] ([id number]) [address] [place] [address] CT CHEST W CONTon 12-06-2023 CT CHEST W CONT CT CHEST W CONT CT of the chest with contrast dated 12/06/2023 at 2:18 PM INDICATION: respiratory illness, leukocytosis, shortness of breath. PROCEDURE: Automatic radiation exposure lowering techniques were utilized. All CT scans at this facility use dose modulation, iterative reconstruction, and/or weight based dosing when appropriate to reduce radiation dose to as low as reasonably achievable.. Following the intravenous injection of 70 mL of Omnipaque 300, a CT of the chest and sagittal and coronal reformats obtained. FINDINGS: No comparisons available. Hypoinflation compromising the evaluation. Mild cardiomegaly and moderate coronary artery calcifications. Mild peribronchial thickening and dependent atelectatic changes in the posterior lungs. No pleural or pericardial effusions. No enlarged lymph nodes. Visualized upper abdomen show no acute abnormalities. Osseous structures reveal no lytic or sclerotic lesions. IMPRESSION: 1. Mild cardiomegaly and coronary artery calcifications. 2. Mild atelectatic changes in the dependent lungs, otherwise negative CT. Finalized by Kameron Jarrett MD on 12/06/2023 3:45 PM Normal [facility] MAGNESIUMon 12-06-2023 Magnesium [Mass/Vol] 1.9 mg/dL Normal 1.8-2.6 [facility] Comment on above: Performed By: #### C BCA, BMP #### [facility] ([id number]) [address] [place] [address] COMPLETE BLOOD COUNTon 12-04 Erythrocyte distribution width (RBC) [Ratio] 13.0 % Normal 11.5-15.0 [facility] Comment on above: Performed By: #### Casey BARTON, BMP #### [facility] ([id number]) [address] [facility] [address] [place] [address] Hematocrit (Bld) [Volume fraction] 38.1 % Low 39-49 [facility] Comment on above: Performed By: #### C ORALIA, BMP #### [facility] ([id number]) [address], [facility] [address] [place] [address] Hemoglobin (Bld) [Mass/Vol] 13.1 g/dL Normal 13.0-17.0 [facility] Comment on above: Performed By: #### Csaey BARTON, BMP #### [facility] ([id number]) [address] [place] [address] MCH (RBC) [Entitic mass] 31.2 pg Normal 27-34 [facility] Comment on above: Performed By: #### Casey BARTON, BMP #### [facility] ([id number]) [address] [place] [address] MCHC (RBC) [Mass/Vol] 34.4 g/dL Normal 32-36 [facility] Comment on above: Performed By: #### Casey BARTON, BMP #### [facility] ([id number]) [address] [place] [address] MCV (RBC) [Entitic vol] 91 fL Normal 80-100 [facility] Comment on above: Performed By: #### Casey BARTON, BMP #### [facility] ([id number]) [address] [place] [address] Platelet mean volume (Bld) [Entitic vol] 8.2 fL Normal 7-12 [facility] Comment on above: Performed By: #### C BCA, BMP #### [facility] ([id number]) [address] [place] [address] Platelets (Bld) [#/Vol] 243 10*3/uL Normal 150-450 [facility] Comment on above: Performed By: #### C BCA, BMP #### [facility] ([id number]) [address] [place] [address] RBC COUNT 4.20 X10E12/L Normal 4.10-5.70 [facility] Comment on above: Performed By: #### C BCA, BMP #### [facility] ([id number]) [address] [place] [address] WBC (Bld) [#/Vol] 12.6 10*3/uL High 4.0-11.0 [facility] Comment on above: Performed By: #### C BCA, BMP #### [facility] ([id number]) [address] [place] [address] COMPREHENSIVE METABOLIC PANE Jace 12-05-2023 Albumin [Mass/Vol] 3.3 g/dL Normal 3.2-5.3 [facility] Comment on above: Performed By: #### C BCA, BMP #### [facility] ([id number]) [address] [place] [address] ALP [Catalytic activity/Vol] 25 U/L Low 39-130 [facility] Comment on above: Performed By: #### C BCA, BMP #### [facility] ([id number]) [address] [place] [address] ALT [Catalytic activity/Vol] 16 U/L Normal 0-40 [facility] Comment on above: Performed By: #### C BCA, BMP #### [facility] ([id number]) [address] [place] [address] Anion gap [Moles/Vol] 7 mmol/L Normal 5-15 [facility] Comment on above: Performed By: #### C BCA, BMP #### [facility] ([id number]) [address] [place] [address] AST [Catalytic activity/Vol] 16 U/L Normal 0-41 [facility] Comment on above: Performed By: #### C BCA, BMP #### [facility] ([id number]) [address] [place] [address] Bilirubin [Mass/Vol] 1.6 mg/dL High 0.3-1.2 [facility] Comment on above: Performed By: #### C BCA, BMP #### [facility] ([id number]) [address] [place] [address] Calcium [Mass/Vol] 7.9 mg/dL Low 8.5-10.5 [facility] Comment on above: Performed By: #### C BCA, BMP #### [facility] ([id number]) [address] [place] [address] Chloride [Moles/Vol] 97 mmol/L Low 98-109 [facility] Comment on above: Performed By: #### C BCA, BMP #### [facility] ([id number]) [address] [place] [address] CO2 [Moles/Vol] 25 mmol/L Normal 22-32 [facility] Comment on above: Performed By: #### C BCA, BMP #### [facility] ([id number]) [address] [place] [address] Creatinine [Mass/Vol] 0.88 mg/dL Normal 0.70-1.20 [facility] Comment on above: Result Comment: METH OD TRACEABLE TO IDMS STANDARD Performed By: #### C BCA, BMP #### [facility] ([id number]) [address] [place] [address] GFR/1.73 sq M.predicted among non-blacks MDRD (S/P/Bld) [Vol rate/Area] 89 mL/min/{1.73_m2} Normal >59 [facility] Comment on above: Result Comment: Reported eGFR is based on the CKD-EPI 2020 equation that does not use a race coefficient. Performed By: #### C BCA, BMP #### [facility] ([id number]) [address] [place] [address] Glucose [Mass/Vol] 134 mg/dL High 65-99 [facility] Comment on above: Performed By: #### C BCA, BMP #### [facility] ([id number]) [address] [place] [address] Potassium [Moles/Vol] 4.0 mmol/L Normal 3.5-5.0 [facility] Comment on above: Performed By: #### C BCA, BMP #### [facility] ([id number]) [address] [place] [address] Protein [Mass/Vol] 5.6 g/dL Low 6.0-8.0 [facility] Comment on above: Performed By: #### C BCA, BMP #### [facility] ([id number]) [address] [address] [place] [address] Sodium [Moles/Vol] 129 mmol/L Low 134-146 [facility] Comment on above: Performed By: #### C BCA, BMP #### [facility] ([id number]) [address] [place] [address] Urea nitrogen [Mass/Vol] 15 mg/dL Normal 5-27 [facility] Comment on above: Performed By: #### C BCA, BMP #### [facility] ([id number]) [address] [place] [address] MAGNESIUMon 12-05-2023 Magnesium [Mass/Vol] 2.1 mg/dL Normal 1.8-2.6 [facility] Comment on above: Performed By: #### Casey BCA, BMP #### [facility] ([id number]) [address] [place] [address] SODIUMon 12-05-2023 Sodium [Moles/Vol] 129 mmol/L Low 134-146 [facility] Comment on above: Performed By: #### C ORALIA, BMP #### [facility] ([id number]) [address] [place] [address] URINALYSISon 12-05-2023 Bilirubin Ql (U) Negative Normal NEG [facility] Comment on above: Performed By: #### Casey BARTON, BMP #### [facility] ([id number]) [address] [place] [address] BLOOD/HGB Negative Normal NEG [facility] Comment on above: Performed By: #### C ORALIA, BMP #### [facility] ([id number]) [address] [place] [address] Color (U) YELLOW Normal YELLOW [facility] Comment on above: Performed By: #### C BCA, BMP #### [facility] ([id number]) [address] [place] [address] Glucose Ql (U) Negative Normal NEG [facility] Comment on above: Performed By: #### C BCA, BMP #### [facility] ([id number]) [address] [place] [address] Ketones Ql (U) Negative Normal NEG [facility] Comment on above: Performed By: #### C BCA, BMP #### [facility] ([id number]) [address] [place] [address] Leukocyte esterase Test strip Ql (U) Negative Normal NEG [facility] Comment on above: Performed By: #### Casey BARTON, BMP #### [facility] ([id number]) [address] [place] [address] Nitrite Ql (U) Negative Normal NEG [facility] Comment on above: Performed By: #### C ORALIA, BMP #### [facility] ([id number]) [address] [place] [address] pH (U) 6.0 [pH] Normal 5.0-8.5 [facility] Comment on above: Performed By: #### C ORALIA, BMP #### [facility] ([id number]) [address] [place] [address] Protein Ql (U) Negative Normal NEG [facility] Comment on above: Performed By: #### Casey BARTON, BMP #### [facility] ([id number]) [address] [place] [address] Specific gravity (U) [Rel density] >1.030 Normal 1.003-1.035 [facility] Comment on above: Performed By: #### Casey BARTON, BMP #### [facility] ([id number]) [address] [place] [address] TURBIDITY CLEAR Normal CLEAR [facility] Comment on above: Performed By: #### C ORALIA, BMP #### [facility] ([id number]) [address] [place] [address] Urobilinogen Qn (U) 1.0 {Dia'U}/dL Normal <1.1 [facility] Comment on above: Performed By: #### C ORALIA, BMP #### [facility] ([id number]) [address] [place] [address] XR CHEST 2 VWSon 07-18-2024 XR CHEST 2 VWS XR CHEST 2 VWS Indication: Leukocytosis. TECHNIQUE: Frontal and lateral views of the chest are obtained compared to prior exam dated 11/07/2023. FINDINGS: Heart and mediastinum are within normal limits. Focal consolidation, pleural effusion, or pneumothorax are not seen. Right hilar region shows increased prominence on lateral view. IMPRESSION: 1. Increased prominence in right hilar region on lateral view may represent some lymphadenopathy. Finalized by Anastacia Wan MD on 12/05/2023 10:52 AM Normal [facility] COMPLETE BLOOD COUNTon 12-03 Erythrocyte distribution width (RBC) [Ratio] 13.1 % Normal 11.5-15.0 [facility] Comment on above: Performed By: #### C BC, CMP, 16016-2, 2776-, TSHR, 302-7 #### [facility] ([id number]) [address] [place] [address] Hematocrit (Bld) [Volume fraction] 42.1 % Normal 39-49 [facility] Comment on above: Performed By: #### C BC, CMP, , 2776-, TSHR, 3024-7 #### [facility] ([id number]) [address] [place] [address] Hemoglobin (Bld) [Mass/Vol] 14.5 g/dL Normal 13.0-17.0 [facility] Comment on above: Performed By: #### C BC, CMP, 69267-9, 2776-, TSHR, 3024-7 #### [facility] ([id number]) [address] [place] [address] MCH (RBC) [Entitic mass] 31.2 pg Normal 27-34 [facility] Comment on above: Performed By: #### C BC, CMP, 73451-2, 2777-1, TSHR, 3024-7 #### [facility] ([id number]) [address] [place] [address] MCHC (RBC) [Mass/Vol] 34.3 g/dL Normal 32-36 [facility] Comment on above: Performed By: #### C BC, CMP, 14315-7, 2776-, TSHR, 3024-7 #### [facility] ([id number]) [address] [place] [address] MCV (RBC) [Entitic vol] 91 fL Normal 80-100 [facility] Comment on above: Performed By: #### Casey BC, CMP, , 2776-, TSHR, 30247 #### [facility] ([id number]) [address] [place] [address] Platelet mean volume (Bld) [Entitic vol] 7.9 fL Normal 7-12 [facility] Comment on above: Performed By: #### C BC, CMP, , 2776-, TSHR, 3024-7 #### [facility] ([id number]) [address] [place] [address] Platelets (Bld) [#/Vol] 268 10*3/uL Normal 150-450 [facility] Comment on above: Performed By: #### Casey BC, CMP, , 2776-, TSHR, 3024-7 #### [facility] ([id number]) [address] [place] [address] RBC COUNT 4.63 X10E12/L Normal 4.10-5.70 [facility] Comment on above: Performed By: #### Casey BC, CMP, , 2776-, TSHR, 3024-7 #### [facility] ([id number]) [address] [place] [address] WBC (Bld) [#/Vol] 14.2 10*3/uL High 4.0-11.0 [facility] Comment on above: Performed By: #### C BC, CMP, 53988-5, 2777-1, TSHR, 3024-7 #### [facility] ([id number]) [address] [place] [address] COMPREHENSIVE METABOLIC PANE Jace 12-04-2023 Albumin [Mass/Vol] 3.8 g/dL Normal 3.2-5.3 [facility] Comment on above: Performed By: #### C BC, CMP, 55291-5, 2777-1, TSHR, 3024-7 #### [facility] ([id number]) [address] [place] [address] ALP [Catalytic activity/Vol] 32 U/L Low 39-130 [facility] Comment on above: Performed By: #### C BC, CMP, 82162-6, 2777-1, TSHR, 3024-7 #### [facility] ([id number]) [address] [place] [address] [place] [address] ALT [Catalytic activity/Vol] 20 U/L Normal 0-40 [facility] Comment on above: Performed By: #### C BC, CMP, 46148-2, 2777-1, TSHR, 3024-7 #### [facility] ([id number]) [address] [place] [address] [place] [address] Anion gap [Moles/Vol] 10 mmol/L Normal 5-15 [facility] Comment on above: Performed By: #### C BC, CMP, 57657-7, 2777-1, TSHR, 3024-7 #### [facility] ([id number]) [address] [place] [address] [place] [address] AST [Catalytic activity/Vol] 21 U/L Normal 0-41 [facility] Comment on above: Performed By: #### C BC, CMP, 42854-5, 2777-1, TSHR, 3024-7 #### [facility] ([id number]) [address] [place] [address] Bilirubin [Mass/Vol] 1.6 mg/dL High 0.3-1.2 [facility] Comment on above: Performed By: #### C BC, CMP, , 2776-05, TSHR, 3027 #### [facility] ([id number]) [address] [place] [address] Calcium [Mass/Vol] 8.2 mg/dL Low 8.5-10.5 [facility] Comment on above: Performed By: #### Casey BC, CMP, , 2776-05, TSHR, 3027 #### [facility] ([id number]) [address] [place] [address] Chloride [Moles/Vol] 95 mmol/L Low 98-109 [facility] Comment on above: Performed By: #### C BC, CMP, , 2776-05, TSHR, 3027 #### [facility] ([id number]) [address] [place] [address] CO2 [Moles/Vol] 25 mmol/L Normal 22-32 [facility] Comment on above: Performed By: #### Casey BC, CMP, , 2776-05, TSHR, 3027 #### [facility] ([id number]) [address] [place] [address] Creatinine [Mass/Vol] 0.91 mg/dL Normal 0.70-1.20 [facility] Comment on above: Result Comment: METH OD TRACEABLE TO IDMS STANDARD Performed By: #### C BC, CMP, , 2776-05, TSHR, 3024-7 #### [facility] ([id number]) [address] [place] [address] GFR/1.73 sq M.predicted among non-blacks MDRD (S/P/Bld) [Vol rate/Area] 87 mL/min/{1.73_m2} Normal >59 [facility] Comment on above: Result Comment: Reported eGFR is based on the CKD-EPI 2020 equation that does not use a race coefficient. Performed By: #### C BC, CMP, , 2776-05, TSHR, 3023-7 #### [facility] ([id number]) [address] [place] [address] Glucose [Mass/Vol] 174 mg/dL High 65-99 [facility] Comment on above: Performed By: #### Casey BOBBY, CMP, , 2776-05, TSHR, 7 #### [facility] ([id number]) [address] [place] [address] Potassium [Moles/Vol] 3.8 mmol/L Normal 3.5-5.0 [facility] Comment on above: Performed By: #### C DIAMANTE, JOSE, , 2776-05, TSHR, 3027 #### [facility] ([id number]) [address] [place] [address] Protein [Mass/Vol] 6.3 g/dL Normal 6.0-8.0 [facility] Comment on above: Performed By: #### Casey BC, CMP, , 2776-05, TSHR, 3027 #### [facility] ([id number]) [address] [place] [address] Sodium [Moles/Vol] 130 mmol/L Low 134-146 [facility] Comment on above: Performed By: #### C BC, CMP, , 2776-05, TSHR, 3024-7 #### [facility] ([id number]) [address] [place] [address] Urea nitrogen [Mass/Vol] 16 mg/dL Normal 5-27 [facility] Comment on above: Performed By: #### C BC, CMP, , 2776-05, TSHR, 3024-7 #### [facility] ([id number]) [address] [place] [address] FREE T4on 12-04-2023 Free T4 [Mass/Vol] 0.84 ng/dL Normal 0.61-1.60 [facility] Comment on above: Performed By: #### C DIAMANTE, CMP, , 2776-05, TSHR, 3024-7 #### [facility] ([id number]) [address] [place] [address] MAGNESIUMon 12-04-2023 Magnesium [Mass/Vol] 1.8 mg/dL Normal 1.8-2.6 [facility] Comment on above: Performed By: #### C BC, [facility], , 2776-05, TSHR, 3024-7 #### [facility] ([id number]) [address] [place] [address] PHOSPHORUSon 12-04-2023 Phosphate [Mass/Vol] 2.5 mg/dL Normal 2.4-4.9 [facility] Comment on above: Performed By: #### C BC, CMP, , 2776-05, TSHR, 3024-7 #### [facility] ([id number]) [address] [place] [address] TSH WITH REFLEXon 12-04-2023 TSH 0.45 uIU/mL Low 0.49-4.67 [facility] Comment on above: Performed By: #### C BC, CMP, , 2776-05, TSHR, 3024-7 #### [facility] ([id number]) [address] [place] [address] XR KNEE RT 1 OR 2 VWSon 07- XR KNEE RT 1 OR 2 VWS XR KNEE RT 1 OR 2 VWS History: Peak aftercare. Knee replacement. Pain Study: Right knee Two view study. Comparison: None Impression: Femoral and tibial components are excellent position. No evidence of periprosthetic fracture or acute complication. Skin fei are noted. Follow-up is planned. Excellent alignment. Finalized by Vidhi Wong MD on 12/04/2023 1:28 PM Normal [facility] BASIC METABOLIC PANLon 11-06 Anion gap [Moles/Vol] 10 mmol/L Normal 5-15 [facility] Comment on above: Performed By: #### C BCA, BMP #### [facility] ([id number]) [address] [place] [address] Calcium [Mass/Vol] 8.8 mg/dL Normal 8.5-10.5 [facility] Comment on above: Performed By: #### C BCA, BMP #### [facility] ([id number]) [address] [place] [address] Chloride [Moles/Vol] 99 mmol/L Normal 98-109 [facility] Comment on above: Performed By: #### C BCA, BMP #### [facility] ([id number]) [address] [place] [address] CO2 [Moles/Vol] 27 mmol/L Normal 22-32 [facility] Comment on above: Performed By: #### C BCA, BMP #### [facility] ([id number]) [address] [place] [address] Creatinine [Mass/Vol] 0.80 mg/dL Normal 0.60-1.30 [facility] Comment on above: Result Comment: METH OD TRACEABLE TO IDMS STANDARD Performed By: #### C BCA, BMP #### [facility] ([id number]) [address] [place] [address] eGFR (CKD-EPI) NON-RACE DEPENDENT >90 Normal >59 [facility] Comment on above: Result Comment: Reported eGFR is based on the CKD-EPI 2020 equation that does not use a race coefficient. Performed By: #### C ORALIA, BMP #### [facility] ([id number]) [address] [address] [place] [address] Glucose [Mass/Vol] 89 mg/dL Normal 65-99 [facility] Comment on above: Performed By: #### C ORALIA, BMP #### [facility] ([id number]) [address] [address] [place] [address] Potassium [Moles/Vol] 4.2 mmol/L Normal 3.5-5.0 [facility] Comment on above: Performed By: #### C ORALIA, BMP #### [facility] ([id number]) [address] [address] [place] [address] Sodium [Moles/Vol] 136 mmol/L Normal 134-146 [facility] Comment on above: Performed By: #### C ORALIA, BMP #### [facility] ([id number]) [address] [address] [place] [address] Urea nitrogen [Mass/Vol] 9 mg/dL Normal 5-27 [facility] Comment on above: Performed By: #### Casey BARTON, BMP #### [facility] ([id number]) [address] [address] CBC AND AUTO DIFFon 06-20-20 24 ABSOLUTE BASOPHIL 0.1 X10E9/L Normal 0.0-0.2 [facility] Comment on above: Performed By: #### Casey BARTON, BMP #### [facility] ([id number]) [address] [address] [place] [address] ABSOLUTE NEUTROPHIL 4.4 X10E9/L Normal 1.5-6.6 [facility] Comment on above: Performed By: #### C BCA, BMP #### [facility] ([id number]) [address] [place] [address] Basophils/100 WBC (Bld) 1.1 % Normal [facility] Comment on above: Performed By: #### C BCA, BMP #### [facility] ([id number]) [address] [place] [address] Eosinophils (Bld) [#/Vol] 0.1 10*3/uL Normal 0.0-0.4 [facility] Comment on above: Performed By: #### C ORALIA, BMP #### [facility] ([id number]) [address] [place] [address] Eosinophils/100 WBC (Bld) 1.0 % Normal [facility] Comment on above: Performed By: #### C ORALIA, BMP #### [facility] ([id number]) [address] [place] [address] Erythrocyte distribution width (RBC) [Ratio] 13.0 % Normal 11.5-15.0 [facility] Comment on above: Performed By: #### C ORALIA, BMP #### [facility] ([id number]) [address] [place] [address] Hematocrit (Bld) [Volume fraction] 45.8 % Normal 39-49 [facility] Comment on above: Performed By: #### C ORALIA, BMP #### [facility] ([id number]) [address] [place] [address] Hemoglobin (Bld) [Mass/Vol] 16.0 g/dL Normal 13.0-17.0 [facility] Comment on above: Performed By: #### C BCA, BMP #### [facility] ([id number]) [address] [place] [address] Lymphocytes (Bld) [#/Vol] 1.2 10*3/uL Normal 1.0-3.5 [facility] Comment on above: Performed By: #### C ORALIA, BMP #### [facility] ([id number]) [address] [place] [address] Lymphocytes/100 WBC (Bld) 19.6 % Normal [facility] Comment on above: Performed By: #### C ORALIA, BMP #### [facility] ([id number]) [address] [place] [address] MCH (RBC) [Entitic mass] 32.2 pg Normal 27-34 [facility] Comment on above: Performed By: #### C ORALIA, BMP #### [facility] ([id number]) [address] [place] [address] MCHC (RBC) [Mass/Vol] 35.0 g/dL Normal 32-36 [facility] Comment on above: Performed By: #### C ORALIA, BMP #### [facility] ([id number]) [address] [place] [address] MCV (RBC) [Entitic vol] 92 fL Normal 80-100 [facility] Comment on above: Performed By: #### C ORALIA, BMP #### [facility] ([id number]) [address] [place] [address] Monocytes (Bld) [#/Vol] 0.6 10*3/uL Normal 0-0.9 [facility] Comment on above: Performed By: #### C ORALIA, BMP #### [facility] ([id number]) [address] [place] [address] Monocytes/100 WBC (Bld) 9.5 % Normal [facility] Comment on above: Performed By: #### C ORALIA, BMP #### [facility] ([id number]) [address] [place] [address] Neutrophils/100 WBC (Bld) 68.8 % Normal [facility] Comment on above: Performed By: #### Casey BARTON, BMP #### [facility] ([id number]) [address] [place] [address] Platelet mean volume (Bld) [Entitic vol] 8.0 fL Normal 7-12 [facility] Comment on above: Performed By: #### Casey BARTON, BMP #### [facility] ([id number]) [address], [facility] [address] [place] [address] Platelets (Bld) [#/Vol] 256 10*3/uL Normal 150-450 [facility] Comment on above: Performed By: #### Casey BARTON, BMP #### [facility] ([id number]) [address], [facility] [address] [place] [address] RBC COUNT 4.98 X10E12/L Normal 4.10-5.70 [facility] Comment on above: Performed By: #### Casey BARTON, BMP #### [facility] ([id number]) [address] [address] WBC (Bld) [#/Vol] 6.4 10*3/uL Normal 4.0-11.0 [facility] Comment on above: Performed By: #### Casey BARTON, BMP #### [facility] ([id number]) [address] [place] [address] XR CHEST 2 VWSon 11-07-2023 XR CHEST 2 VWS XR CHEST 2 VWS XR CHEST 2 VWS INDICATION: Preop examination; Coronary artery disease, unspecified vessel or lesion type, unspecified whether angina present, unspecified whether [place] or transplanted heart; Hypertension, unspecified type; History of myocardial infarction. Coronary artery disease. Chest pain. FINDINGS: Cardiac silhouette is normal in size. Trachea midline. No focal pulmonary consolidation. No pleural effusion. No pneumothorax. IMPRESSION: 1. No acute findings. Finalized by Nghia Tolbert MD on 11/07/2023 9:20 PM Normal [facility] Office Visiton 10-28-2023 Follow-up visit [id number] Nabil Stauffer 1945 M Date Provider Department Center 10/28/2023 [id number]-LULCHELYJOSHUA, EHAB [facility] Family History Problem Relation Age of Onset Heart attack Mother 60 Heart attack Maternal Grandmother Family Status - Relation Status Age at Mother Maternal Grandmother Level of Service:13138 [place] OFFICE/OUTPATIENT ESTABLISHED MOD MDM 30 MIN Normal [facility] CBC WITH AUTO DIFFERENTIALon 09-28-2023 Basophils (Bld) [#/Vol] 0.02 10*3/uL Normal 0.00-0.20 [facility] Comment on above: Performed By: #### L [id number] ####[facility] (BEAKER)[address] [place] [address] Basophils/100 WBC (Bld) 0.3 % Normal 0.0-1.0 [facility] Comment on above: Performed By: #### L [id number] ####[facility] (BEAKER)[address] [facility] [place] [address] Eosinophils (Bld) [#/Vol] 0.10 10*3/uL Normal 0.00-0.50 [facility] Comment on above: Performed By: #### L [id number] ####[facility] (BEAKER)[address] [place] [address] Eosinophils/100 WBC (Bld) 1.4 % Normal 0.0-6.0 [facility] Comment on above: Performed By: #### L [id number] ####[facility] (BEAKER)[address] [place] [address] Erythrocyte distribution width (RBC) [Ratio] 12.4 % Normal 11.5-15.0 [facility] Comment on above: Performed By: #### L [id number] ####[facility] (BEAKER)[address] [place] [address] ERYTHROCYTE MEAN CORPUSCULAR HEMOGLOBIN CONCENTRATION (G/DL) BY AUTOMATED 34.4 g/dL Normal 32.0-35.0 [facility] Comment on above: Performed By: #### L [id number] ####[facility] (BEAKER)[address] [place] [address] Hematocrit (Bld) [Volume fraction] 46.5 % Normal 39.0-55.0 [facility] Comment on above: Performed By: #### L [id number] ####[facility] (BEAKER)[address] [place] [address] Hemoglobin (Bld) [Mass/Vol] 16.0 g/dL Normal 13.0-17.0 [facility] Comment on above: Performed By: #### L [id number] ####[facility] (BEAKER)[address] [place] [address] Immature granulocytes (Bld) [#/Vol] 0.03 10*3/uL Normal 0.00-0.20 [facility] Comment on above: Performed By: #### L [id number] ####[facility] (BEAKER)[address] [place] [address] Immature granulocytes/100 WBC (Bld) 0.4 % Normal 0.0-1.0 [facility] Comment on above: Performed By: #### L [id number] ####[facility] (BEAKER)[address] [place] [address] Lymphocytes (Bld) [#/Vol] 1.43 10*3/uL Normal 1.20-4.00 [facility] Comment on above: Performed By: #### L [id number] ####[facility] (BEAKER)[address] [place] [address] Lymphocytes/100 WBC (Bld) 19.6 % Low 20.0-45.0 [facility] Comment on above: Performed By: #### L [id number] ####[facility] ([facility])[address] [place] [address] MCH (RBC) [Entitic mass] 31.7 pg Normal 27.0-33.0 [facility] Comment on above: Performed By: #### L [id number] ####[facility] [place] [address] MCV (RBC) [Entitic vol] 92.3 fL Normal 82.0-98.0 [facility] Comment on above: Performed By: #### L [id number] ####[facility] ([facility] [place] [address] Monocytes (Bld) [#/Vol] 0.79 10*3/uL Normal 0.10-1.00 [facility] Comment on above: Performed By: #### L [id number] ####[facility] ([facility] [place] [address] Monocytes/100 WBC (Bld) 10.8 % Normal 5.0-12.0 [facility] Comment on above: Performed By: #### L [id number] ####[facility] ([facility])[address] [place] [address] Neutrophils (Bld) [#/Vol] 4.92 10*3/uL Normal 1.60-7.60 [facility] Comment on above: Performed By: #### L [id number] ####[facility] ([facility])[address] [place] [address] Neutrophils/100 WBC (Bld) 67.5 % Normal 40.0-72.0 [facility] Comment on above: Performed By: #### L [id number] ####[facility] ([facility])[address] [place] [address] NRBC (PER 100 WBCS) BY AUTOMATED COUNT 0.0 % Normal 0 [facility] Healthcare Comment on above: Performed By: #### L [id number] ####[facility] (BEAKER)[address] [place] [address] PLATELETS (10*3/UL) IN BLOOD AUTOMATED COUNT 278 10*3/uL Normal 150-400 [facility] Comment on above: Performed By: #### L [id number] ####[facility] ([facility])[address] [place] [address] RBC (Bld) [#/Vol] 5.04 10*6/uL Normal 4.20-5.70 [facility] Comment on above: Performed By: #### L [id number] ####[facility] ([facility])[address] [place] [address] WBC (Bld) [#/Vol] 7.29 10*3/uL Normal 4.00-10.60 [facility] Comment on above: Performed By: #### L [id number] ####[facility] ([facility])[address] [place] [address] COMPREHENSIVE METABOLIC PANE Jace 09-28-2023 Albumin [Mass/Vol] 4.4 g/dL Normal 3.5-5.7 [facility] Comment on above: Performed By: #### L [id number] ####[facility] ([facility])[address] [place] [address] ALP [Catalytic activity/Vol] 31 U/L Low 34-104 [facility] Comment on above: Performed By: #### L [id number] ####[facility] ([facility])[address] [place] [address] ALT [Catalytic activity/Vol] 19 U/L Normal 7-52 [facility] Comment on above: Performed By: #### L [id number] ####[facility] ([facility])[address] [place] [address] Anion gap [Moles/Vol] 11 mmol/L Normal 7-20 [facility] Comment on above: Performed By: #### L [id number] ####[facility] ([facility])[address] [place] [address] AST [Catalytic activity/Vol] 18 U/L Normal 13-39 [facility] Comment on above: Performed By: #### L [id number] ####[facility] ([facility])[address] [place] [address] Bilirubin [Mass/Vol] 2.1 mg/dL High 0.3-1.0 [facility] Comment on above: Performed By: #### L [id number] ####[facility] ([facility])[address] [place] [address] Calcium [Mass/Vol] 8.8 mg/dL Normal 8.6-10.3 [facility] Comment on above: Performed By: #### L [id number] ####[facility] [place] [address] Chloride [Moles/Vol] 102 mmol/L Normal 98-107 [facility] Comment on above: Performed By: #### L [id number] ####[facility] (BEAKER)[address] [place] [address] CO2 [Moles/Vol] 25 mmol/L Normal 21-31 [facility] Comment on above: Performed By: #### L [id number] ####[facility] [place] [address] Creatinine [Mass/Vol] 0.75 mg/dL Normal 0.70-1.30 [facility] Comment on above: Performed By: #### L [id number] ####[facility] [place] [address] GLOMERULAR FILTRATION RATE ML/MIN/1.73 SQ M.PREDICTED 92.9 mL/min/1.73m*2 Normal >60.0 [facility] Comment on above: Result Comment: The [facility]???s estimated glomerular filtration rate (eGFR) will no [...] of individuals. Performed By: #### L [id number] ####[facility] ([facility] [place] [address] Glucose [Mass/Vol] 85 mg/dL Normal 70-100 [facility] Comment on above: Performed By: #### L [id number] ####[facility] ([facility] [place] [address] Potassium [Moles/Vol] 4.0 mmol/L Normal 3.5-5.1 [facility] Comment on above: Performed By: #### L [id number] ####[facility] ([facility])[address] [place] [address] Protein [Mass/Vol] 6.6 g/dL Normal 6.0-8.3 [facility] Comment on above: Performed By: #### L [id number] ####[facility] ([facility])[address] [place] [address] Sodium [Moles/Vol] 134 mmol/L Low 136-145 [facility] Comment on above: Performed By: #### L [id number] ####[facility] ([facility])[address] [place] [address] Urea nitrogen [Mass/Vol] 13 mg/dL Normal 7-25 [facility] Comment on above: Performed By: #### L [id number] ####[facility] ([facility])[address] [place] [address] UREA NITROGEN/CREATININE (MASS RATIO) IN SER/PLAS 17.3 Normal [facility] Comment on above: Performed By: #### L [id number] ####[facility] ([facility])[address] [place] [address] DSon 09-28-2023 DS Admission Admitted 09/27/2023 for [...] time and will further discuss with Dr. Espitia when he see's him next month. Also will have him discuss SGLT2i or GLP-[address] Espitia at his follow-up appt as he currently [...] in the near future Follow-up with Dr. Espitia in the next 1 to 2 months [...] leg: Ed (more content not included)... Normal [facility] HEMOGLOBIN A1Con 09-28-2023 Glucose [Mass/Vol] 88 mg/dL Normal [facility] Comment on above: Performed By: #### L [id number] ####[facility] ([facility]ER)[address] [place] [address] HbA1c (Bld) [Mass fraction] 4.7 % Normal 4.0-6.0 [facility] Comment on above: Performed By: #### L [id number] ####[facility] (RAQUEL)[address] [place] [address] 30on 09-27-2023 30 Problem: Pain - Adul t Goal: Verbalizes/displays adequate comfort level or baseline comfort level Outcome: Progressing Flowsheets (Taken 09/27/20231424) Verbalizes/displays adequate comfort level or baseline comfort [...] and behaviors that affect risk of falls [place] fall precautions as indicated by assessment Educate [...] for the shift include STABLE VS Normal [facility] Adriana 09-27-2023 MARY -- Attestation signed by Moraima Espitia MD at 09/27/2023 1:33 PM Moraima Espitia MD, MPH, [facility], [facility], [facility] Interventional Cardiology Pager Email: [email or web address] Patient: Nabil Stauffer Procedure Information Date/Time: 09/27/23 1230 Procedure: Coronary angiography (Left) Location: [facility] PRIMING POW[facility] PREMIX BLENDER 3 / [facility] VASCULAR [facility] (Cath) Providers: Moraima Espitia MD Clinical information reviewed: [facility] Meds Physical Exam Airway Mallampati: IV TM [...] fellow and attending. Additional Equipment Requests Normal [facility] HPon 09-27-2023 -- Attestation signed by Moraima Espitia MD at 09/27/2023 1:33 PM Mor[facility]PH, [facility], [facility], [facility] Interventional Cardiology Pager Email: [email or web address] History Of Present Illness Nabil Stauffer is a 78 y.o. male presenting with [...] reversible ischemia Cardiovascular Laboratory Report Physician: Moraima Espitia, FINAL IMPRESSIONS: 1. Severe stenosis of the left anterior descending coronary artery, successfully treated by balloon angioplasty and Synergy drug-eluting stent placement. 2. Severe stenosis of the posterior descending artery, successfully treated by balloon angioplasty and Synergy drug-eluting stent placement. 3. Moderate angiographic, non-hemodynamically significant stenosis of the right coronary artery as assessed by instantaneous wave-free ratio (iFR). 4. [id number] in-stent restenosis of the mid left anterior [...] 5. Follow up with me in the [facility] in the next 2 to 4 weeks. 6. Follow up with Dr. Quijano as scheduled. PROCEDURES: Ultrasound-guided access to the right internal jugular vein, right heart catheterization, ultrasound-guided access to the left radial artery, bilateral selective coronary angiography, percutaneous balloon a (more content not included)... [facility] NURSNOTEon 09-27-2023 NURSNOTE Report given to Puja RN from Manuela MADRID Any medications or safety alerts were reviewed. Any pending diagnostics and notifications were also reviewed, as well as any safety concerns or issues, abnormal labs, abnormal imagining, and abnormal assessment findings. Questions were answered. [facility] Letter (Out)on 09-17-2023 Letter (Out) [id number] Nabil Stauffer 1945 [facility] Provider Department Center 09/17/2023 None-None [facility] No family history on file [facility] 36on 09-13-[address] Quijano's office called and wanted to know what the plan was for the patients abnormal stress test. [facility] Orders Onlyon 09-13-2023 Orders Only [id number] Nabil Stauffer 1945 [facility] Provider Department Center 09/13/2023 [facility] No family history on file [facility] Office Visiton 01-07-2023 Follow-up visit [id number] Nabil Stauffer 1945 [facility] Provider Department Center 01/07/2023 MORAIMA MORRISON [facility] No family history on file Level of Service:76545 [place] OFFICE/OUTPATIENT ESTABLISHED LOW MDM 20-29 MIN [facility] CBC AUTO DIFFon 07-04-2022 BASO # 0.1 103/ul Normal 0.0-0.1 [facility] Comment on above: Performed By: #### C BC #### [facility] [address] [address] [address] Cami Bishop Basophils/100 WBC (Bld) 0.9 % Normal 0.2-2.0 [facility] Comment on above: Performed By: #### C BC #### [facility] [address] [address] [address] Cami Bishop EO # 0.1 103/ul Normal 0.0-0.7 [facility] Comment on above: Performed By: #### C BC #### [facility] [address] [address] [address] Cami Bishop Eosinophils/100 WBC (Bld) 2.0 % Normal 0.9-7.0 [facility] Comment on above: Performed By: #### C BC #### [facility] [address] [place] [address] Dr. Cami Bishop Erythrocyte distribution width (RBC) [Ratio] 12.2 % Normal 11.0-15.0 [facility] Comment on above: Performed By: #### C BC #### [facility] [address] [place] [address] Dr. Cami Bishop Hematocrit (Bld) [Volume fraction] 45.3 % Normal 42.0-54.0 [facility] Comment on above: Performed By: #### C BC #### [facility] [address] [place] [address] Dr. Cami Bishop Hemoglobin (Bld) [Mass/Vol] 16.0 g/dL Normal 14.0-18.0 [facility] Comment on above: Performed By: #### C BC #### [facility] [address] [place] [address] Dr. Cami Bishop IG # 0.04 10e3/ul Critically high 0.00-0.03 [facility] Comment on above: Performed By: #### C BC #### [facility] [address] [place] [address] Dr. Cami Bishop IG % 0.7 % Critically high 0.0-0.5 [facility] Comment on above: Performed By: #### C BC #### [facility] [address] [address] [address] Cami Bishop LYMPH # 1.6 103/ul Normal 1.2-3.8 [facility] Comment on above: Performed By: #### C BC #### [facility] [address] [place] [address] Dr. Cami Bishop Lymphocytes/100 WBC (Bld) 28.6 % Normal 20.5-60.0 [facility] Comment on above: Performed By: #### C BC #### [facility] [address] [place] [address] Dr. Cami Bishop MANUAL DIFF REQ NO Normal [facility] Comment on above: Performed By: #### C BC #### [facility] [address] [place] [address] Dr. Cami Bishop MCH (RBC) [Entitic mass] 31.2 pg Normal 25.9-34.0 [facility] Comment on above: Performed By: #### C BC #### [facility] [address] [place] [address] Dr. Cami Bishop MCHC (RBC) [Mass/Vol] 35.3 g/dL Critically high 29.9-35.2 [facility] Comment on above: Performed By: #### C BC #### [facility] [address] [place] [address] Dr. Cami Bishop MCV (RBC) [Entitic vol] 88.3 fL Normal 80.0-94.0 [facility] Comment on above: Performed By: #### C BC #### [facility] [address] [place] [address] Dr. Cami Bishop MONO # 0.6 103/ul Normal 0.3-0.8 [facility] Comment on above: Performed By: #### C BC #### [facility] [address] [place] [address] Dr. Cami Bishop Monocytes/100 WBC (Bld) 11.2 % Normal 1.7-12.0 [facility] Comment on above: Performed By: #### C BC #### [facility] [address] [place] [address] Dr. Cami Bishop NEUT # 3.2 103/ul Normal 1.4-6.5 [facility] Comment on above: Performed By: #### C BC #### [facility] [address] [address] [address] Cami Bishop Neutrophils/100 WBC (Bld) 56.6 % Normal 43.0-75.0 [facility] Comment on above: Performed By: #### C BC #### [facility] [address] [address] [address] Cami Bishop Platelet mean volume (Bld) [Entitic vol] 9.6 fL Normal 9.5-13.5 [facility] Comment on above: Performed By: #### C BC #### [facility] [address] [address] [address] Cami Bishop PLT 229 103/ul Normal 150-450 [facility] Comment on above: Performed By: #### C BC #### [facility] [address] [place] [address] Dr. Cami Bishop RBC 5.13 106/ul Normal 4.70-6.10 [facility] Comment on above: Performed By: #### C BC #### [facility] [address] [address] [address] Cami Bishop WBC 5.6 103/ul Normal 4.0-11.0 [facility] Comment on above: Performed By: #### C BC #### [facility] [address] [place] [address] Dr. Cami Bishop FREE T3on 07-04-2022 FREE T3 2.50 pg/mlL Normal 2.18-3.98 [facility] Comment on above: Performed By: #### T SH, LIPID, FT3, T4, CMP #### [facility] [address] [address] [address] Cami Bishop GLYCOHEMOGLOBIN A1Con 2022 ADA RECOMMENDATION SEE BELOW Normal [facility] Comment on above: Result Comment: ADA RECOMMENDED LIMIT 4.0 - 6.0 ADA THERAPEUTIC TARGET < 7.0 ACTION SUGGESTED > 7.0 Performed By: #### A 1C #### [facility] [address] [place] [address] Dr. Cami Bishop Glucose [Mass/Vol] 105 mg/dL Normal [facility] Comment on above: Performed By: #### A 1C #### [facility] [address] [address] [address] Cami Bishop HbA1c (Bld) [Mass fraction] 5.3 % Normal 4.5-6.2 [facility] Comment on above: Performed By: #### A 1C #### [facility] [address] [address] [address] Cami Bishop LIPID PROFILEon 07-04-2022 CHOL-HDL RATIO NORM SEE BELOW Normal [facility] Comment on above: Result Comment: 3.3 - 4.4 LOW RISK 4.4 - 7.1 AVERAGE RISK 7.1 - 11.0 MODERATE RISK >11.0 HIGH RISK Performed By: #### T SH, LIPID, FT3, T4, CMP #### [facility] [address] [address] [address] Cami Bishop Cholesterol [Mass/Vol] 123 mg/dL Normal <=200 [facility] Comment on above: Performed By: #### T SH, LIPID, FT3, T4, CMP #### [facility] [address] [address] [address] Cami Bishop Cholesterol in HDL [Mass/Vol] 39 mg/dL Critically low 40-60 [facility] Comment on above: Performed By: #### T SH, LIPID, FT3, T4, CMP #### [facility] [address] [address] [address] Cami Bishop Cholesterol in LDL [Mass/Vol] 55.6 mg/dL Normal [facility] Comment on above: Performed By: #### T SH, LIPID, FT3, T4, CMP #### [facility] [address] [address] [address] Cami Bishop Cholesterol.total/Ch olesterol in HDL [Mass ratio] 3.2 {ratio} Normal [facility] Comment on above: Performed By: #### T SH, LIPID, FT3, T4, CMP #### [facility] [address] [address] [address] Cami Bishop HDL NORMAL > or = 60 mg/dl - LO W CARDIOVASCULAR RISK <40 mg/dl - HIGH CARDIOVASCULAR RISK Normal [facility] Comment on above: Performed By: #### T SH, LIPID, FT3, T4, CMP #### [facility] [address] [address] [address] Cami Bishop LDL CALC NORMAL SEE BELOW Normal [facility] Comment on above: Result Comment: <100 mg/dl OPTIMAL 100 - 129 mg/dl NEAR OR ABOVE OPTIMAL 130 - 159 mg/dl BORDERLINE HIGH 160 - 189 mg/dl HIGH >190 mg/dl VERY HIGH Performed By: #### T SH, LIPID, FT3, T4, CMP #### [facility] [address] [address] [address] Cami Bishop Triglyceride [Mass/Vol] 142 mg/dL Normal <=150 [facility] Comment on above: Performed By: #### T SH, LIPID, FT3, T4, CMP #### [facility] [address] [address] [address] Cami Bishop VLDL CALC 28.4 mg/dL Normal [facility] Comment on above: Performed By: #### T SH, LIPID, FT3, T4, CMP #### [facility] [address] [address] [address] Cami Bishop PROF 14(COMP METB)on 023 Albumin [Mass/Vol] 3.8 g/dL Normal 3.4-5.0 [facility] Comment on above: Performed By: #### T SH, LIPID, FT3, T4, CMP #### [facility] [address] [address] [address] Cami Bishop Albumin/Globulin [Mass ratio] 1.3 {ratio} Normal [facility] Comment on above: Performed By: #### T SH, LIPID, FT3, T4, CMP #### [facility] [address] [address] [address] Cami Bishop ALP [Catalytic activity/Vol] 44 U/L Critically low 46-116 [facility] Comment on above: Performed By: #### T SH, LIPID, FT3, T4, CMP #### [facility] [address] [address] [address] Cami Bishop ALT [Catalytic activity/Vol] 36 U/L Normal 16-63 [facility] Comment on above: Performed By: #### T SH, LIPID, FT3, T4, CMP #### [facility] [address] [place] [address] Dr. Cami Bishop Anion gap [Moles/Vol] 9.3 mmol/L Normal [facility] Comment on above: Performed By: #### T SH, LIPID, FT3, T4, CMP #### [facility] [address] [place] [address] Dr. Cami Bishop AST [Catalytic activity/Vol] 22 U/L Normal 15-37 [facility] Comment on above: Performed By: #### T SH, LIPID, FT3, T4, CMP #### [facility] [address] [place] [address] Dr. Cami Bishop Bilirubin [Mass/Vol] 1.4 mg/dL Critically high 0.2-1.0 [facility] Comment on above: Performed By: #### T SH, LIPID, FT3, T4, CMP #### [facility] [address] [place] [address] Dr. Cami Bishop Calcium [Mass/Vol] 8.9 mg/dL Normal 8.5-10.1 [facility] Comment on above: Performed By: #### T SH, LIPID, FT3, T4, CMP #### [facility] [address] [place] [address] Dr. Cami Bishop Chloride [Moles/Vol] 98 mmol/L Normal 98-107 [facility] Comment on above: Performed By: #### T SH, LIPID, FT3, T4, CMP #### [facility] [address] [place] [address] Dr. Cami Bishop CO2 [Moles/Vol] 32.7 mmol/L Critically high 21.0-32.0 [facility] Comment on above: Performed By: #### T SH, LIPID, FT3, T4, CMP #### [facility] [address] [place] [address] Dr. Cami Bisohp Creatinine [Mass/Vol] 0.95 mg/dL Normal 0.70-1.30 The [facility] Comment on above: Performed By: #### T SH, LIPID, FT3, T4, CMP #### [facility] [address] [address] [address] Cami Bishop EGFR-AF WELSH >60 Normal >=60 [facility] Comment on above: Performed By: #### T SH, LIPID, FT3, T4, CMP #### [facility] [address] [address] [address] Cami Bishop EGFR-NON AF WELSH >60 Normal >=60 The [facility] Comment on above: Performed By: #### T SH, LIPID, FT3, T4, CMP #### [facility] [address] [place] [address] Dr. Cami Bishop Globulin (S) [Mass/Vol] 2.9 g/dL Normal [facility] Comment on above: Performed By: #### T SH, LIPID, FT3, T4, CMP #### [facility] [address] [place] [address] Dr. Cami Bishop Glucose [Mass/Vol] 102 mg/dL Normal 74-106 [facility] Comment on above: Performed By: #### T SH, LIPID, FT3, T4, CMP #### [facility] [address] [place] [address] Dr. Cami Bishop Potassium [Moles/Vol] 4.0 mmol/L Normal 3.5-5.1 The [facility] Comment on above: Performed By: #### T SH, LIPID, FT3, T4, CMP #### [facility] [address] [place] [address] Dr. Cami Bishop Protein [Mass/Vol] 6.7 g/dL Normal 6.4-8.2 [facility] Comment on above: Performed By: #### T SH, LIPID, FT3, T4, CMP #### [facility] [address] [place] [address] Dr. Cami Bishop Sodium [Moles/Vol] 136 mmol/L Normal 136-145 [facility] Comment on above: Performed By: #### T SH, LIPID, FT3, T4, CMP #### [facility] [address] [place] [address] Dr. Cami Bishop Urea nitrogen [Mass/Vol] 14.0 mg/dL Normal 7.0-18.0 [facility] Comment on above: Performed By: #### T SH, LIPID, FT3, T4, CMP #### [facility] [address] [place] [address] Dr. Cami Bishop Urea nitrogen/Creatinine [Mass ratio] 14.7 mg/mg Normal [facility] Comment on above: Performed By: #### T SH, LIPID, FT3, T4, CMP #### [facility] [address] [place] [address] Dr. Cami Bishop T4on 07-04-2022 T4 [Mass/Vol] 6.80 ug/dL Normal 4.50-12.10 [facility] Comment on above: Performed By: #### T SH, LIPID, FT3, T4, CMP #### [facility] [address] [place] [address] Dr. Cami Bishop TSHon 07-04-2022 TSH 2.193 uIU/mL Normal 0.358-3.740 [facility] Comment on above: Performed By: #### T SH, LIPID, FT3, T4, CMP #### [facility] [address] [place] [address] Dr. Cami Bishop VITAMIN D 25 OHon 07-04-2022 VIT D 25-OH 35.1 ng/mL Normal [facility] Comment on above: Performed By: #### V ITAD, PSASC #### [facility] [address] [place] [address] Dr. Cami Bishop VIT D RANGES SEE BELOW Normal [facility] Comment on above: Result Comment: <20 ng/mL Vit D deficient 20 - <30 ng/mL Vit D insufficient 30 - 100 ng/mL Vit D sufficient >100 ng/mL Potential Toxicity Performed By: #### V ITAD, PSASC #### [facility] [address] [place] [address] Dr. Cami Bishop ER URINE PROFILEon 2 Bilirubin Ql (U) Negative Normal NEGATIVE [facility] Comment on above: Performed By: #### T SH, LIPID, FT3, T4, CMP #### [facility] [address] [address] [address] Cami Bishop Clarity (U) CLEAR Normal CLEAR [facility] Comment on above: Performed By: #### T SH, LIPID, FT3, T4, CMP #### [facility] [address] [address] [address] Cami Bishop Color (U) YELLOW Normal YELLOW [facility] Comment on above: Performed By: #### T SH, LIPID, FT3, T4, CMP #### [facility] [address] [place] [address] Dr. Cami REID A micrscopic examination will be performed if indicated. Normal [facility] Comment on above: Performed By: #### T SH, LIPID, FT3, T4, CMP #### [facility] [address] [place] [address] Dr. Cami Bishop Glucose Ql (U) Negative Normal NEGATIVE [facility] Comment on above: Performed By: #### T SH, LIPID, FT3, T4, CMP #### [facility] [address] [place] [address] Dr. Cami Bishop Hemoglobin Ql (U) Negative Normal NEGATIVE [facility] Comment on above: Performed By: #### T SH, LIPID, FT3, T4, CMP #### [facility] [address] [address] [address] Cami Bishop Ketones Ql (U) Negative Normal NEGATIVE [facility] Comment on above: Performed By: #### T SH, LIPID, FT3, T4, CMP #### [facility] [address] [place] [address] Dr. Cami Bishop LEUKOCYTES Negative Normal NEGATIVE [facility] Comment on above: Performed By: #### T SH, LIPID, FT3, T4, CMP #### [facility] [address] [place] [address] Dr. Cami Bishop Nitrite Ql (U) Negative Normal NEGATIVE [facility] Comment on above: Performed By: #### T SH, LIPID, FT3, T4, CMP #### [facility] [address] [place] [address] Dr. Cami Bishop pH (U) 6.0 [pH] Normal 5-9 [facility] Comment on above: Performed By: #### T SH, LIPID, FT3, T4, CMP #### [facility] [address] [place] [address] Dr. Cami Bishop SPEC GRAVITY 1.020 Normal 1.005-<=1.025 [facility] Comment on above: Performed By: #### T SH, LIPID, FT3, T4, CMP #### [facility] [address] [place] [address] Dr. Cami Bishop UA PROTEIN Negative Normal NEGATIVE/ TRACE [facility] Comment on above: Performed By: #### T SH, LIPID, FT3, T4, CMP #### [facility] [address] [place] [address] Dr. Cami Bishop UR MICRO IND NOT INDICATED Normal [facility] Comment on above: Performed By: #### T SH, LIPID, FT3, T4, CMP #### [facility] [address] [place] [address] Dr. Cami Bishop Urobilinogen Qn (U) 1.0 {Dia'U}/dL Normal 0.2 - 1. 0 [facility] Comment on above: Performed By: #### T SH, LIPID, FT3, T4, CMP #### [facility] [address] [place] [address] Dr. Cami Bishop XR LSPINE 2_3 VIEWSon [...] SARS-CoV-2 (COVID-19) RNA LIN+probe Ql (Unsp spec) [id number]. 00CD:127 Normal [facility] Consent for COVID Vaccineon 07-01-2020 SARS-CoV-2 (COVID-19) RNA LIN+probe Ql (Unsp spec) [id number]#1. 00CD:127 [facility] Consent for Treatmenton 06-20 Consent for Treatment [id number]. 00CD:127 [facility] Coding Summary.on 06-29-2020 Coding Summary. CODING DATE: 06/29/2020 FINAL [facility] STATUS: PAYOR: Medicare APC DESCRIPTION 1492 New [...] Manuel CphT Date Saved: 06/29/2020 11:45 am [facility] Ambulatory Clinical Summaryo n 01-26-2020 Ambulatory Clinical Summary {[id number]}CD:[id number] [facility] Ambulatory Clinical Summaryo n 12-16-2019 Ambulatory Clinical Summary {[id number] }CD:[id number] [facility] General Surgery Office/Clini c Noteon 12-16-2019 General Surgery Office/Clinic Note Chief Complaint post operative follow up HPI Staff 14 day post operative follow up post excisional biopsy from left occipital scalp completed at [facility] on 12/03. Denies pain; no use of [...] History of gout Hyperlipemia Lipoma of scalp OR (myocardial infarction) Obstructive sleep apnea Pilar cyst [...] Status diphtheria/pertussis, acel/tetanus adult 10/26/2014 Given Normal [facility] Comment on above: Result Comment: Elec tronically Signed By: CRISTINA MARTIN, Joseph Ledesma\Date and Time Signed: 12/16/19 13:32 EDT Operative Reporton 0 Operative Report [id number]#1.0 0CD:127 Normal [facility] Pathology Noteon 12-08-2019 Pathology Note [id number]#1.0 0CD:127 Normal [facility] Facesheeton 11-13-2019 Facesheet [id number]#1.0 0CD:127 Normal [facility] Physician Referralon 020 Physician Referral [id number] CD:127 Normal [facility] Cardiovascular Lab Reporton 03-06-2018 Cardiovascular Lab Report [facility] MR #: [id number] of Physician: Sheryl Stratton M.D.Division of Service Date: 03/05/2018Cardiology Birthdate: [birth year]Adult Cardiovascular Room #: 3CD [id number] [address]Dbdyt Fax Cardiovascular Laboratory ReportFINAL IMPRESSIONS:1. Severe stenosis of the left anterior descending coronary artery, successfully treated by balloon angioplasty and Synergy drug-eluting stent placement.2. Severe stenosis of the posterior descending artery, successfully treated by balloon angioplasty and Synergy drug-eluting stent placement.3. Moderate angiographic, non-hemodynamically significant stenosis of the right coronary artery as assessed by instantaneous wave-free ratio (iFR).4. Pioc-ah-cmcgomdy in-stent restenosis of the mid left anterior [...] rehabilitation.5. Follow up with me in the [facility] in the next 2 to 4 [...] the left radial arteryunder ultrasound guidance. A 6-Portuguese Glidesheath was inserted withoutdifficulty. Coronary angiography was performed using JR4 and PN0iybcupmhm. After reviewing the images, it was elected to proceed with aninterventional procedure.A 6-Portuguese XB3.5 guide catheter was advanced over J-wire and coaxiallyengaged into the left main coronary ostium. The FamilyLeaf pressure wire wasadvanced through the catheter with [...] wire trauma. The XB guide catheter wasremoved.A 6-Portuguese JR4 guide catheter was advanced over the J-wire and coaxiallyengaged into the right coronary ostium. A new FamilyLeaf pressure wire wasadvanced through the catheter with [...] restenosis. Distal to a small adjacent diagonal, morgso-cd-zcmebv left anterior descending shows a short segment [...] distal wiretrauma.INDICATIONS : Unstable angina.Electronically Signed by:Moraima Espitia M.D. 03/12/2018 03:07 P Moraima Espitia M.D.Date Dict: 03/05/2018/01:31 P/Moraima Espitia M.D.Date Trans: 03/06/2018 12:18 P/Marino_JN:[id number] 991cc: Romel Quijano M.D. [address] [place] [address] [place] [facility] Encounters Encounter Date Encounter Type Care Provider Facility Start: 02-25-2024 End: 02-25-2024 [employer] flowsheet Dakota Bryant DO Work Phone: [facility] Start: 02-25-2024 End: 02-25-2024 Bamboo flowsheet Dakota Bryant DO Work Phone: [facility] Start: 02-25-2024 End: 02-25-2024 Postop follow up visit related to original px Dakota Bryant DO Work Phone: [facility] Comment on above: Status post right kn ee replacement; Primary osteoarthritis of right knee Start: 02-25-2024 End: 02-25-2024 ambulatory DAKOTA BRYANT Not Available Start: 02-18-2024 End: 02-18-2024 Bamboo flowsheet Jona Asher PT [facility] Start: 02-18-2024 End: 02-18-2024 Bamboo flowsheet Jona [place] PT [facility] Start: 02-18-2024 End: 02-18-2024 ambulatory Jona Asher PT [facility] Comment on above: Postoperative pain o f right knee (Primary Dx); Presence of artificial knee joint, right Start: 02-13-2024 End: 02-13-2024 ambulatory JONA ASHER Not Available Start: 02-11-2024 End: 02-11-2024 ambulatory JONA ASHER Not Available Start: 02-04-2024 End: 02-04-2024 Bamboo flowsheet Adriana Maureen FISH HATCHERY SUPERINTENDENT [facility] Start: 02-04-2024 End: 02-04-2024 Bamboo flowsheet Adriana Maureen FISH HATCHERY SUPERINTENDENT [facility] Start: 02-04-2024 End: 02-04-2024 ambulatory ADRIANA MAUREEN [facility] Comment on above: Postoperative pain o f right knee (Primary Dx); Presence of artificial knee joint, right Start: 01-30-2024 End: 01-30-2024 Bamboo flowsheet Jona Asher PT [facility] Start: 01-30-2024 End: 01-30-2024 Bamboo flowsheet Jona [place] PT [facility] Start: 01-30-2024 End: 01-30-2024 ambulatory JONA ASHER [facility] Comment on above: Postoperative pain o f right knee (Primary Dx); Presence of artificial knee joint, right Start: 01-28-2024 End: 01-28-2024 ambulatory ADRIANA MAUREEN Not Available Start: 01-23-2024 End: 01-23-2024 ambulatory JONA ASHER Not Available Start: 01-21-2024 End: 01-21-2024 ambulatory ADRIANA MAUREEN Not Available Start: 01-16-2024 End: 01-16-2024 ambulatory JONA ASHER Not Available Start: 01-14-2024 End: 01-14-2024 ambulatory [facility] Not Available Start: 01-09-2024 End: 01-09-2024 ambulatory JONA ASHER Not Available Start: 01-07-2024 End: 01-07-2024 ambulatory ADRIANA MAUREEN Not Available Start: 01-02-2024 End: 01-02-2024 ambulatory JONA ASHER Not Available Start: 12-31-2023 End: 12-31-2023 ambulatory JONA ASHER Not Available Start: 12-17-2023 End: 12-17-2023 ambulatory [facility] Not Available Start: 12-09-2023 End: 12-09-2023 ambulatory BAKARI HUITRON Not Available Start: 12-04-2023 End: 12-06-2023 ambulatory [facility] Start: 11-27-2023 End: 11-27-2023 ambulatory SHEREE DIAZ Not Available Start: 11-26-2023 End: 11-26-2023 ambulatory [facility] Start: 11-07-2023 End: 11-07-2023 ambulatory [facility] Start: 11-07-2023 Encounter for other preprocedural examination [facility] Start: 11-07-2023 End: 11-07-2023 ambulatory [facility] Not Available Start: 11-07-2023 End: 11-08-2023 ambulatory [facility] Start: 10-30-2023 End: 10-30-2023 ambulatory SHELDON HANDLEY Not Available Start: 10-28-2023 End: 10-28-2023 ambulatory [facility] Start: 10-08-2023 End: 10-08-2023 ambulatory DAKOTA Mclaughlin JOSE Not Available Start: 09-27-2023 Evaluation and management of inpatient [facility] Start: 09-27-[address] [facility] Start: 09-27-2023 End: 09-28-2023 Evaluation and management of inpatient KAREY HASSAN [facility] Start: 07-09-2023 End: 07-09-2023 ambulatory DAKOTA Mclaughlin JOSE Not Available Start: 04-22-2023 End: 04-23-2023 ambulatory Navdeep Porter MD Facility:[facility] Start: 01-07-2023 End: 01-07-2023 ambulatory [facility] Start: 07-04-2022 End: 07-05-[address] ROMEL QUIJANO . Facility: Start: 01-11-2022 End: 01-11-[address] ROMEL QUIJANO . Facility: Start: 04-07-2018 End: 04-08-2018 Patient encounter procedure DEFAULT PHYSICIAN Facility:[facility] Start: 03-05-2018 End: 03-06-2018 Patient encounter procedure [facility] Lissette [facility] Facility:[facility] Procedures Date Procedure Procedure Detail Performing Clinician Start: 07-04-[address] DESIRAE QUIJANO . Comment on above: Performed By: #### V ITAD, PSASC #### [facility] [address] [place] [address] Dr. Cami Bishop Start: 03-05-2018 R HRT CORONARY ARTERY ANGIO [facility] Plan of Treatment Date Care Activity Detail Author Start: 05-26-2024 End: 05-26-2024 Patient encounter procedure 05/26/2024 11:00 AM EST Office Visit [facility] [address] [place] [id number] Jaleel Pedraza T, PATIENT SERVICE ASSOCIATE [address] [place] [address] [facility] Start: 03-24-2024 End: 03-24-2024 Patient encounter procedure 03/24/2024 10:45 AM EST [facility] [address] [place] [address] Dakota Bryant DO [address] [place] [address] [facility] Start: 02-25-2024 End: 02-25-2024 Patient encounter procedure [facility] Comment on above: Status post right kn ee replacement; Primary osteoarthritis of right knee Start: 02-13-2024 End: 02-13-2024 ambulatory 02/13/2024 12:30 PM EDT Treatment [facility] [address] [place] [address] Jona Sterling, PT [facility] Start: 02-11-2024 End: 02-11-2024 ambulatory 02/11/2024 11:00 AM EDT Treatment [facility] [address] [place] [address] Jona Sterling, PT [facility] Start: 02-06-2024 End: 02-06-2024 ambulatory 02/06/2024 2:00 PM EDT Treatment [facility] [address] [place] [address] Adriana Reddy, FISH HATCHERY SUPERINTENDENT [facility] Start: 02-04-2024 End: 02-04-2024 ambulatory [facility] Comment on above: Arrived Start: 01-30-2024 End: 01-30-2024 ambulatory 01/30/2024 11:30 AM EDT Treatment [facility] [address] [place] [address] Jona Sterling, PT Arrived [facility] Comment on above: Arrived Start: 01-19-2024 Influenza vaccination Influenza Vacc ine (#1) [facility] Start: 2011 Pneumococcal Vaccine : 65+ Years (1 of 1 - PCV) Pneumococcal Vaccine: 65+ Years (1 of 1 - PCV) [facility] Healthcare Payers Date Payer Category Payer Medicare 1958 Private Health Insurance [id number] 1945 Unknown [id number] 2.16.8 40.1.057066.3.579.2.647 1945 Unknown [id number] 2.16.8 40.1.533299.3.579.2.647 1946 Unknown [id number] 2.16.84 0.1.593139.3.579.2.593 1946 Unknown [id number] 2.16.84 0.1.919057.3.579.2.593 1946 Unknown [id number] 2.16. 840.1.911108.3.579.2.196 1946 Unknown [id number] 2.16.8 40.1.373209.3.579.2.1286 1946 Unknown [id number] 2.16.8 40.1.710327.3.579.2.1286 1946 Unknown [id number] 2.16.8 40.1.446897.3.579.2.1286 1946 Unknown [id number] 2.16.8 40.1.412577.3.579.2.1286 1946 Unknown [id number] 2.16.8 40.1.486222.3.579.2.1286 1946 Unknown [id number] 2.16.8 40.1.236380.3.579.2.1286 1946 Unknown [id number] 2.16.84 0.1.434066.3.579.2.1259 1946 Unknown [id number] 2.16.84 0.1.397672.3.579.2.1259 1946 Unknown [id number] 2.16.84 0.1.394240.3.579.2.1259 1946 Unknown [id number] 2.16.84 0.1.904223.3.579.2.9 1946 Unknown [id number] 2.16.84 0.1.283962.3.579.2.1259 1946 Unknown [id number] 2.16.84 0.1.984072.3.579.2.1258 1946 Unknown [id number] 2.16.84 0.1.111244.3.579.2.1258 1946 Unknown [id number] 2.16.84 0.1.038902.3.579.2.1258 1946 Unknown [id number] 2.16.84 0.1.838866.3.579.2.1258 1946 Unknown [id number] 2.16.84 0.1.000494.3.579.2.1258 1946 Unknown [id number] 2.16.84 0.1.864570.3.579.2.1258 1946 Unknown [id number] 2.16.84 0.1.286968.3.579.2.1258 1946 Unknown [id number] 2.16.84 0.1.349917.3.579.2.1258 1946 Unknown [id number] 2.16.84 0.1.503807.3.579.2.1258 1946 Unknown [id number] 2.16.84 0.1.579659.3.579.2.1258 1946 Unknown [id number] 2.16.84 0.1.983888.3.579.2.1258 1946 Unknown [id number] 2.16.84 0.1.981292.3.579.2.9 1946 Unknown [id number] 2.16.84 0.1.084380.3.579.2.1258 1946 Unknown [id number] 2.16.84 0.1.878917.3.579.2.1258 1946 Unknown [id number] 2.16.84 0.1.172935.3.579.2.9 1946 Unknown [id number] 2.16.84 0.1.265239.3.579.2.1259 1946 Unknown [id number] 2.16.84 0.1.813393.3.579.2.9 1946 Unknown [id number] 2.16.84 0.1.236267.3.579.2.1258 1946 Unknown [id number] 2.16.84 0.1.198119.3.579.2.9 1946 Unknown [id number] 2.16.84 0.1.561930.3.579.2.1258 1946 Unknown [id number] 2.16.84 0.1.236724.3.579.2.1259 Unknown Social History Date Type Detail Facility Start: 07-09-2023 Tobacco smoking stat [facility] Never smoked tobacco [facility] Start: 07-09-2023 Tobacco use and exposure Smoke less tobacco non-user [facility] Start: 12-17-2023 Alcoholic beverage intake Curr ent drinker of alcohol (finding) [facility] Start: 12-17-2023 History of Social function [facility] Start: 12-17-2023 Tobacco use panel [facility] Start: 1945 Sex assigned at Not on file [facility] Clinical Notes 01-07-2023 to 02-25-2024 Dakota Bryant, DO - 02/25/2024 11:00 AM Wilfrid Sterling, PT - 02/18/2024 11:00 AM Wilfrid Sterling, PT - 01/30/2024 11:30 AM EDT Note Date & Type Note Facility 02-25-2024 History of Present illness Narrative Images from the original note were not included. HISTORY OF PRESENT ILLNESS: Nabil Stauffer is an 78 y.o. @ male. Follow up RT TKA RT Knee: 12 weeks s/p RT TKA 12/04/23. He is walking well unassisted. Minimal pain in the knee, more so with prolonged standing or sitting. Taking TYL prn for general aches and pains. Denies N/T. Incision well healed. Pt is happy with outcome so far. MEDICATION: Current Outpatient Medications on File Prior to Visit Medication Sig Dispense Refill acetaminophen (Tylenol) 500 MG tablet Take 1,000 mg by mouth every 6 (six) hours if needed amLODIPine (Norvasc) 5 MG tablet 1 (one) time each day at the same time aspirin 81 MG chewable tablet Chew 1 tablet every day by oral route. clopidogrel (Plavix) 75 MG tablet Take 75 mg by mouth in the morning. hydroCHLOROthiazide (HYDRODiuril) 12.5 MG tablet Take 12.5 mg by mouth in the morning. lisinopril 40 MG tablet Take 40 mg by mouth in the morning. metFORMIN (Glucophage) 500 MG tablet Take 1 tablet by mouth in the morning and 1 tablet before bedtime. metoprolol tartrate (Lopressor) 25 MG tablet every 12 (twelve) hours Multiple Vitamins-Minerals (Kyle Multivitamin for Men) tablet Kyle Multi Men niacin 500 MG tablet 1 (one) time each day at the same time omega-3 (fish oil) 1000 MG capsule 1 capsule 1 (one) time each day at the same time rosuvastatin (Crestor) 20 MG tablet Take 20 mg by mouth in the morning. simvastatin (Zocor) 40 MG tablet Take 40 mg by mouth in the morning. No current facility-administered medications on file prior to visit. MEDICAL HISTORY: Past Medical History: Diagnosis Date Coronary artery disease (CMS/HCC) Diabetes mellitus (CMS/HCC) Gilbert's syndrome Gout Hyperlipidemia (CMS/HCC) Hypertension (CMS/HCC) OR (myocardial infarction) (CMS/HCC) CHRISTIANO (obstructive sleep apnea) Phlebitis ALLERGIES: Allergies Allergen Reactions Levofloxacin VITALS: Visit Vitals Smoking Status Never PHYSICAL EXAM: Ortho Exam RIGHT KNEE Mild warmth ROM 5-110 Ambulating without assisted devices ASSESSMENT: ICD-10-CM 1. Status post right knee replacement Z96.651 2. Primary osteoarthritis of right knee M17.11 PLAN: I explained the diagnosis and reviewed treatment options. I discussed with the patient the general recommendation for the use of prophylactic antibiotics prior to dental work after joint replacement. I advised the patient that the use of prophylactic antibiotics for dental work is a controversial topic. I currently have recommended that prophylactic antibiotics be used for 2 years postop and I did advise the patient that the guidelines and recommendations may change on this in the future. I answered all of the patient's questions. Follow up in 3 months with xrays, any issues/concerns follow up sooner. Dr. Bryant obtained history and examined the patient, I am acting as scribe for Dr. Bryant/felicita Bryant D.O. documented in this encounter [facility] 02-18-2024 History of Present illness Narrative Physical Therapy Physical Therapy Treatment Visit Patient Name: Nabil Stauffer Today's Date: 02/18/2024 Encounter Diagnoses Name Primary? Postoperative pain of right knee Yes Presence of artificial knee joint, right *Pt goes by García* Visit number: 14 Time in: 11:03 pm Time out: 11:48 pm Supervised time: 34 min Total time: 45 min Precautions: WBAT Subjective Pain: 1/10 knee Overall progress: Improving with overall functional mobility, gait, and knee strength. Pt feels he is ready to discharge with IHEP. No limp noted upon arrival to PT session. Treatment: Therapeutic Exercise: per grid for improving R knee ROM and strength. x24' supervised / x11' unsupervised Therapeutic Activity: Exercises to improve dynamic activities, functional tasks, functional mobility to return to prior activity level x10' (heel taps, resisted side stepping, STS) Modalities: pt deferred Assessment/plan: No complaints at this time. Pt feels he is ready to discharge and complete IHEP. Was educated to call and schedule another therapy appt in the next 30 days if he feels he is not making good improvements/progress on his own at home. Print out given to pt post session. All questions were answered. Knee MMT grossly: 4+/5 Knee FL ROM: 115 degrees today without OP. With OP 118 degrees documented in this encounter [facility] 01-30-2024 History of Present illness Narrative Physical Therapy Physical Therapy Treatment Visit Patient Name: Nabil Stauffer Today's Date: 01/30/2024 Encounter Diagnoses Name Primary? Postoperative pain of right knee Yes Presence of artificial knee joint, right *Pt goes by García* Visit number: 11 Time in: 11:30 am Time out: 12:32 pm Supervised time: 40 min Total time: 62 min Precautions: WBAT Subjective Pain: Pt says the knee feels not too bad today Overall progress: Improving with overall functional mobility. Pt brought cane in today as he said he thought he may need it by the end of today's session. Treatment: Therapeutic Exercise: per grid for improving R knee ROM and strength. x30' supervised / x12' unsupervised Therapeutic Activity: Exercises to improve dynamic activities, functional tasks, functional mobility to return to prior activity level x10' (STS, heel taps FWD, stair navigation) Modalities: ice 10 min post session Assessment: Progressing well with R knee strength and ROM. Functional mobility is improving with each week. Able to do FWD heel taps and weighted STS today. Able to do reciprocal gait when going up stairwell with single UE assist; challenged more when going down steps. Moderate fatigue after doing stairwell; rest break provided. Knee ROM was 118 degrees of FL today. Plan: Continue to progress as able per PT POC for another 1-2 weeks or further improvements in knee/hip stability to improve overall gait. documented in this encounter [facility] 10-28-2023 Note [facility] Cardiology Clinic Note Chief Complaint: Patient here for follow up heart cath. Knee replacement is scheduled for December 04, 2023. C/o intermittent chest pain s/p cath. Says his VO isn't too bad . HPI: Nabil Stauffer is a 78 y.o. male Cardiology ROS: Review of Systems Cardiovascular: Positive for chest pain (intermittent), dyspnea on exertion (improving) and leg swelling. Musculoskeletal: Positive for arthritis and joint pain. Neurological: Positive for vertigo. All other systems reviewed and are negative. Past Medical History He has a past medical history of Hyperlipidemia, Hypertension, Myocardial infarction (CMS/HCC), and Sleep apnea. Surgical History He has no past surgical history on file. Social History He reports that he has never smoked. He has never used smokeless tobacco. No history on file for alcohol use and drug use. Family History No family [...] , Rfl: simvastatin (Zocor) 40 mg tablet, take 1 tablet by mouth once daily, Disp: 90 tablet, Rfl: 3 Last Recorded Vitals BP 130/82 (BP Location: Left arm, Patient Position: Sitting) Pulse 55 Ht 1.778 m (5' 10 ) Wt 129 kg (284 lb) SpO2 97% BMI 40.75 kg/m??? Physical Examination: GENERAL: alert and oriented [...] mood, affect, and judgement. Investigations: Physician: Moraima Espitia, Cardiovascular Laboratory Report FINAL IMPRESSIONS: 1. Severe stenosis of the left anterior descending coronary artery, successfully treated by balloon angioplasty and Synergy drug-eluting stent placement. 2. Severe stenosis of the posterior descending artery, successfully treated by balloon angioplasty and Synergy drug-eluting stent placement. 3. Moderate angiographic, non-hemodynamically significant stenosis of the right coronary artery as assessed by instantaneous wave-free ratio (iFR). 4. Etug-ks-zpocqeer in-stent restenosis of the mid left anterior [...] 5. Follow up with me in the [facility] in the next 2 to 4 [...] are to be read, interpreted and reported in a separate dictation. Nuclear images: Conclusion: 1. Large, fixed defect in inferior wall extending into the lateral wall and apex. The area demonstrates partial reversibility. 2. Dilated left ventricle 3. Normal exercise test. Per my notes: Fixed defect in the inferolateral territory wi (more content not included)... [facility] 09-28-2023 Note [facility] Medicine Daily Progress Note - 09/28/2023 8:28 AM; Room: 3109/3109-01 Admission: 09/27/2023 10:47 AM; Length of stay: 1 days THE HOSPITALIST TEAM PREFERS TO USE [employer] CHAT FOR COMMUNICATION 7AM-7PM. IF I DO NOT RESPOND WITHIN 15 MINUTES, PLEASE PAGE ME/CALL THROUGH THE AUTHORIZER. FROM 7PM-7AM, PLEASE PAGE [phone](COVR) Code Status: Full Code Barriers to Discharge: [...] , FREET4 , CORTISOL , FEV1 , LZE8HKX , DLCO , RVSP , HDL , LDL No results found for: TCWFFLVI06 , IRON , TIBC , C3 , [...] T waves in Inferior lead Confirmed by Alysha CARTER, L.S. (2) on 09/27/2023 2:30:02 PM Cardiac [...] coronary artery Modera (more content not included)... [facility] 09-27-2023 Note Clinician attempted AOD brief intervention. Pt reports he only drinks a glass of wine or a beer around 1x a week. Pt denies having concerns regarding his alcohol use. Per pt report, pt is drinking within recommended limits. Pt did not need brief intervention at this time. [facility] 09-27-2023 Note 09/27/23 1423 Admission Assessment Questions [...] Discharge? No Does the patient have a major case detective assigned to them through their insurance? No [...] to send link and activate MyChart? No [facility] 09-27-2023 Note Hospital Medicine History and Physical 09/27/2023 1:59 PM THE HOSPITALIST TEAM PREFERS TO USE [employer] FOR COMMUNICATION 7AM-7PM. IF I DO NOT RESPOND WITHIN 15 MINUTES, PLEASE PAGE ME/CALL THROUGH THE AUTHORIZER. FROM 7PM-7AM, PLEASE PAGE [phone](COVR) Chief Complaint No chief complaint on file. History of Present Illness Nabil Stauffer is an 78 y.o. male admitted following [...] this hospital stay by a member of [facility]. Past Medical History Past Medical History: Diagnosis Date Hyperlipidemia Hypertension Myocardial infarction ([facility]) Sleep apnea Past Surgical Histo (more content not included)... [facility] 09-27-2023 Note Cardiovascular Labor atory Report FINAL [...] in the near future Follow-up with Dr. Espitia in the next 1 to 2 months [...] left radial artery was obtained. A 6 Portuguese glide sheath was inserted without difficulty. Bilateral selective coronary angiography was performed using JR 4.0 and JL 4.0 catheters. After reviewing the images, it was elected to proceed with an interventional procedure. A 6 Portuguese XB 3.5 guide catheter was advanced over [...] inferoapical ischemia, preo (more content not included)... [facility] 01-07-2023 Note [facility] Cardiology Clinic Note Chief Complaint: Patient here [...] and [facility]. She had a bowel perforation with [...] mood, affect, and judgement. Investigations: Physician: Moraima Espitia, Cardiovascular Laboratory Report FINAL IMPRESSIONS: 1. Severe stenosis of the left anterior descending coronary artery, successfully treated by balloon angioplasty and Synergy drug-eluting stent placement. 2. Severe stenosis of the posterior descending artery, successfully treated by balloon angioplasty and Synergy drug-eluting stent placement. 3. Moderate angiographic, non-hemodynamically significant stenosis of the right coronary artery as assessed by instantaneous wave-free ratio (iFR). 4. [id number] in-stent restenosis of the mid left anterior [...] 5. Follow up with me in the [facility] in the next 2 to 4 [...] and reported i (more content not included)... [facility] Evaluation note Diagnosis Postoperative pain of right knee- Primary Presence of artificial knee joint, right [facility] Diagnosis Status post right knee replacement Primary osteoarthritis of right knee [facility] Diagnosis Postoperative pain of right knee- Primary Presence of artificial knee joint, right [facility] Diagnosis Postoperative pain of right knee- Primary Presence of artificial knee joint, right documented in this encounter [facility] Summary Purpose Family History No Family History [...] section and content) DATE CREATED AUTHOR 04/28/2018 [facility] DATE CREATED AUTHOR AUTHOR'S ORGANIZ ATION 10/26/2020 [facility] DATE CREATED AUTHOR AUTHOR'S ORGANIZ ATION 07/09/2022 [facility] DATE CREATED AUTHOR AUTHOR'S ORGANIZ ATION 05/03/2023 [facility] DATE CREATED AUTHOR AUTHOR'S ORGANIZ ATION 10/28/2023 [facility] DATE CREATED AUTHOR AUTHOR'S ORGANIZ ATION 12/07/2023 [facility] DATE CREATED AUTHOR AUTHOR'S ORGANIZ ATION 02/27/2024 [facility] [employer] Care Teams (unrecognized sec tion and content) Manager Membership Relationship Specialty Start Date End Date Romel Quijano MD [address] [place] [address] PCP - General Family Medicine 03/18/23 Manager Membership Relationship Specialty Start Date End Date Romel Quijano MD [address] [place] [address] PCP - General Family Medicine 03/18/23 Manager Membership Relationship Specialty Start Date End Date Romel Quijano MD [address] [facility] [place] [address] PCP - General Family Medicine 03/18/23 Manager Membership Relationship Specialty Start Date End Date Romel Quijano MD [address] [facility] [place] [address] PCP - General Family Medicine 03/18/23 Manager Membership Relationship Specialty Start Date End Date Romel Quijano MD [address] [facility] [place] [address] PCP - General Family Medicine 03/18/23 Manager Membership Relationship Specialty Start Date End Date Romel Quijano MD [address] [facility] [place] [address] PCP - General Family Medicine 03/18/23 Manager Membership Relationship Specialty Start Date End Date Romel Quijano MD [address] [facility] [place] [address] PCP - General Family Medicine 03/18/23 Reason for Visit (unrecogniz ed section and content) Specialty Diagnoses / Procedures Referred By Contac t Referred To Contact Physical Therapy Diagnoses Presence of right artificial knee joint Procedures [facility] PHYSICAL THERAPY EVALUATION LOW COMPLEX 20 MINS Dakota Bryant DO [address] [facility] [address] [place] [address] Jona Sterling, EZE Referral ID Status Reason Start Date Expiration Date Visits Requested Visits Authorized [id number] Authorized Consult and Treat 01/21/2024 03/03/2024 12 12 Reason Comments Follow-up Specialty Diagnoses / Procedures Referred By Contac t Referred To Contact Physical Therapy Diagnoses Presence of artificial knee joint, right Procedures [facility] OFFICE/OUTPATIENT NEW HIGH MDM 60 MINUTES Dakota Bryant DO [address] [place] [id number] Jona Sterling, EZE Referral ID Status Reason Start Date Expiration Date Visits Requested Visits Authorized [id number] Authorized Specialty Services Required 12/04/2023 06/01/2024 99 99 FOR RECORDS PERTAINING TO PATIENTS WHO ARE [...] BE BASED ON THE PRIMARY CLINICAL RECORDS. [employer] provides no warranty or guarantee of the accuracy or completeness of information in this document.
[2024-05-06 12:48] LABS: Alanine Aminotransferase 29 U/L (16-63); Albumin Globulin Ratio 1.1; Albumin Level 3.5 g/dL (3.4-5.0); Alkaline Phosphatase 43 U/L (46-116); Aspartate Amino Transferase 22 U/L (15-37); Bilirubin Direct 0.3 mg/dL (0.0-0.2); Bilirubin Total 1.5 mg/dL (0.2-1.0); Chol HDL Ratio 2.8; Cholesterol 122 mg/dL (<=200); Globulin 3.1 g/dL; HDL Cholesterol 43 mg/dL (40-60); LDL Cholesterol Calculated 59.8 mg/dL; Total Protein 6.6 g/dL (6.4-8.2); Triglycerides 96 mg/dL (<=150); VLDL CHOLESTEROL 19.2 mg/dL
== END 2024-05-06 12:04 | disposition home or self-care (01) ==
LOC: LAB 12:04
PROVIDERS: PCP Family Medicine; Visit Provider Internal Medicine Interventional Cardiology
DX: E78.5 Hyperlipidemia, unspecified (principal)
CPT/HCPCS: 36415; 80061; 80076

== ENCOUNTER 2024-08-03 11:45 | Outpatient (OUT) | payer MEDICARE, SELFPAY ==
--- NOTE | 2024-08-03 12:06 | XR_ITS ---
The [address] [address] Patient Name: SONIA PLASENCIA MRN: [id number] date: 1945 Sex: M Assigned Patient Location: LAB Current Patient Location: LAB Accession/Order Number: [id number] Exam Date: 08/03/2024 13:21 Report Date: 08/03/2024 13:21 At the request of: ROMEL FRANCO MD Procedure: XR chest 2V Chest 2 views CLINICAL HISTORY: Cough for 2 weeks and fever today. COMPARISON: None FINDINGS: Heart normal in size. Lungs are clear. No free air. XR/XR chest 2V IMPRESSION: NO ACUTE CARDIOPULMONARY ABNORMALITY. Impression dictated by: Migue Martinez Jr., D.ORachid08/03/2024 1:21 PM Dictation Location: [place] [address] Electronically authenticated by: [id number] Y Date: 08/03/2024 13:21
[2024-08-03 12:13] LABS: Hematocrit 43.8 % (42.0-54.0); Hemoglobin 15.8 g/dL (14.0-18.0); Mean Corpuscular HGB Conc 36.1 g/dL (29.9-35.2); Mean Corpuscular Hemoglobin 31.1 pg (25.9-34.0); Mean Corpuscular Volume 86.2 fL (80.0-94.0); Mean Platelet Volume 8.7 fL (9.5-13.5); Platelet Count 221 10^3/uL (150-450); Red Blood Count 5.08 10^6/uL (4.70-6.10); Red Cell Distribution Width 12.2 % (11.0-15.0); White Blood Count 4.7 10^3/uL (4.0-11.0)
[2024-08-03 12:50] LABS: Lymphocytes Absolute Manual 0.65 10^3/uL (1.20-3.80); Monocytes Absolute Manual 0.98 10^3/uL (0.30-0.80); Segmented Neut Absolute Manual 3.05 10^3/uL (1.4-6.5)
[2024-08-03 13:00] LABS: Anion Gap 12.4; Carbon Dioxide 28.5 mmol/L (21.0-32.0); Chloride 90 mmol/L (98-107); Glucose 103 mg/dL (74-106); Potassium 3.9 mmol/L (3.5-5.1); Sodium 127 mmol/L (136-145)
[2024-08-03 13:01] LABS: Alanine Aminotransferase 50 U/L (16-63); Albumin Globulin Ratio 1.3; Alkaline Phosphatase 39 U/L (46-116); Aspartate Amino Transferase 51 U/L (15-37); BUN Creatinine Ratio 12.9; Bilirubin Total 1.9 mg/dL (0.2-1.0); Calcium 8.6 mg/dL (8.5-10.1); Estimated GFR (African America >60 (>=60 mL/min/1.73m^2); Estimated GFR (Non-African Ame 52 (>=60 mL/min/1.73m^2); Globulin 3.2 g/dL; Total Protein 7.2 g/dL (6.4-8.2)
== END 2024-08-03 11:46 | disposition home or self-care (01) ==
LOC: LAB 11:46
PROVIDERS: PCP Family Medicine; Visit Provider Family Medicine
DX: J20.9 Acute bronchitis, unspecified (principal); I50.30 Unspecified diastolic (congestive) heart failure; I11.0 Hypertensive heart disease with heart failure
CPT/HCPCS: 36415; 71046; 80053; 83880; 85007; 85027

== ENCOUNTER 2024-08-04 10:44 | Outpatient (REF) | payer MEDICARE, SELFPAY ==
--- OUTSIDE RECORDS SUMMARY | 2024-08-04 11:02 | XMS_ITS | CCD ---
Author Organization [facility] Care Team Providers Care Supervisor Kennel Name Role Phone PHYSICIAN, DEFAULT Unavailable Unavailable PHYSICIAN, DEFAULT Unavailable Unavailable HOY, ROMEL Unavailable Unavailable [place], EHAB A Unavailable Unavailable [place], EHAB A Unavailable Unavailable HOY, ROMEL Unavailable Unavailable HOY, ROMEL Unavailable Unavailable [place] Unavailable Unavailable [place], EHAB A Unavailable Unavailable HOY ., DR URENA Primary Care Unavailable WENDY WHITMAN Admitting Unavailable WENDY WHITMAN Attending Unavailable SIMRANEBYVES, DR DAMIR Thibodeaux Consulting Unavailable WENDY WHITMAN Consulting Unavailable HOY ., DR URENA Admitting Unavailable HOY ., DR URENA Attending Unavailable HOY ., DR URENA Primary Care Unavailable HOY ., DR URENA Consulting Unavailable German MARTIN, Navdeep Dodd Attending Unavailable DAKOTA BRYANT Referring Unavailable DAKOTA BRYANT Referring Unavailable DAKOTA BRYANT Attending Unavailable DAKOTA BRYANT Referring Unavailable DAKOTA BRYANT Attending Unavailable DAKOTA BRYANT Referring Unavailable DAKOTA BRYANT Referring Unavailable DAKOTA BRYANT Admitting Unavailable DAKOTA BRYANT Attending Unavailable DONNA TAYLOR Consulting Unavailable MISA SANCHEZ Consulting Unavailable Macie MARTIN, Romel Fowler Primary Care Provider [phone] DAKOTA BRYANT Attending Unavailable DAKOTA BRYANT Attending Unavailable SHELDON HANDLEY Attending Unavailable DAKOTA BRYANT Attending Unavailable DAKOTA BRYANT Referring Unavailable SHEREE DIAZ Attending Unavailable DAKOTA BRYANT Referring Unavailable BAKARI HUITRON Attending Unavailable DAKOTA BRYANT Referring Unavailable DAKOTA BRYANT Attending Unavailable JONA STERLING Attending Unavailable MANNY, DAKOTA A Referring Unavailable ASHER, JONA Attending Unavailable MANNY, DAKOTA A Referring Unavailable MAUREEN, ADRIANA Attending Unavailable MANNY, DAKOTA A Referring Unavailable ASHER, JONA Attending Unavailable MANNY, DAKOTA A Referring Unavailable MANNY, DAKOTA A Attending Unavailable MANNY, DAKOTA A Referring Unavailable MAUREEN, ADRIANA Attending Unavailable MANNY, DAKOTA A Referring Unavailable ASHER, JONA Attending Unavailable MANNY, DAKOTA A Referring Unavailable MAUREEN, ADRIANA Attending Unavailable MANNY, DAKOTA A Referring Unavailable ASHER, JONA Attending Unavailable MANNY, DAKOTA A Referring Unavailable MAUREEN, ADRIANA Attending Unavailable MANNY, DAKOTA A Referring Unavailable ASHER, JONA Attending Unavailable MANNY, DAKOTA A Referring Unavailable MAUREEN, ADRIANA Attending Unavailable MANNY, DAKOTA A Referring Unavailable ASHER, JONA Attending Unavailable MANNY, DAKOTA A Referring Unavailable ASHER, JONA Attending Unavailable MANNY, DAKOTA A Referring Unavailable ASHER, JONA Attending Unavailable MANNY, DAKOTA A Referring Unavailable MANNY, DAKOTA Mclaughlin Attending Unavailable MELY PAIGE Attending Unavailable MELY PAIGE Referring Unavailable Unavailable Primary Care Provider Unavailcourtney ESPITIA, EHAB Attending Unavailable ELTAHAWY, EHAB Attending Unavailable KAREY HASSAN Admitting Unavailable CRUZ, HANI Attending Unavailable [place]HAW[place], EHAB Referring Unavailable [place]WY, EHAB Referring Unavailable Allergies Allergy Classification Reported Allergen(s) Allergy Type Date of Onset Reaction(s) Facility Quinolones (antibiotic) (1 source) levoFLOXacin; Translations: [LEVOFLOXACIN] Drug Allergy 4 [facility] Repository (1 source) 81623,00; Translations: [85483,00] Propensity to adverse reactions (disorder) 9 [facility] Repository (2 sources) levoFLOXacin; Translations: [LEVOFLOXACIN] Drug Allergy 3 [facility] Repository (20 sources) levoFLOXacin Drug Allergy 3 Other (See Comments) [facility] Medications Current Medications Medication Drug Class(es) Dates Sig (Normalized) Sig (Original) acetaminophen 500 mg oral tablet (20 sources) Start: 12-04-2023 take 1000 mg by mouth every six hours 1,000 mg, oral, Every 6 hours scheduled, First dose on Sat12/04/23 at 1800, Start 6 hours after the pre-op dose. Start: 12-04-2023 take 1 tablet by neptali th every four hours as needed 500 mg, oral, Every 4 hours PRN, mild pain of 1, Starting on Sat12/04/23 at 1448 take 2 tablets by mo uth every six hours as needed acetaminophen (Tylenol) 500 MG tablet Take 1,000 mg by mouth every 6 (six) hours if needed Active amLODIPine 5 mg oral tablet (20 sources) Dihydropyridine Calcium Channel Yazmin Start: 12-05-2023 End: 12-06-2023 take 5 mg by mouth once daily 5 mg, oral, Daily, First dose on Sat12/05/23 at 0900, Look-alike/sound-alike medication - verify indication for use. Avoid grapefruit juice. aspirin 325 mg delayed release oral tablet (20 sources) Platelet Aggregation Inhibitor, Nonsteroidal Anti-inflammatory Drug Start: 12-05-2023 End: 01-06-2024 take 1 tablet by mouth in the morning aspirin 325 mg EC tablet Take 1 tablet (325 mg total) by mouth in the morning for 30 days. 12/07/2023 01/06/2024 Active take 1 tablet by neptali th once daily aspirin 81 MG chewable tablet Chew 1 tablet every day by oral route. Active End: 12-06-2023 take 1 tablet by mouth in the morning aspirin 81 mg Take 1 tablet (81 mg total) by mouth in the morning. 12/06/2023 Discontinued (Stop Taking at Discharge) 100 ml calcium gluconate 20 mg/ml injection (1 source) Start: 12-04-2023 take 4-4.3 mg intravenously every hour as needed 2,000 mg, intravenous, at 50 mL/hr, Administer over 2 Hours, As needed, ionized calcium 4 to 4.3 mg/dL, Starting on Sat12/04/23 at 2130, IV Administration of calcium via a central or deep vein preferred. Avoid administration in small hand veins VESICANT (RED) calcium gluconate 3,000 mg in sodium chloride 0.9 % 100 mL IVPB (1 source) Start: 12-04-2023 take 3.5-3.9 mg intravenously every hour as needed 3,000 mg, intravenous, at 43.3 mL/hr, Administer over 3 Hours, As needed, ionized calcium 3.5 to 3.9 mg/dL, Starting on Sat12/04/23 at 2130, IV Administration of calcium via a central or deep vein preferred. Avoid administration in small hand veins VESICANT (RED) calcium gluconate 4,000 mg in sodium chloride 0.9 % 250 mL IVPB (1 source) Start: 12-04-2023 take 3.4 mg intravenously every hour as needed 4,000 mg, intravenous, at 72.5 mL/hr, Administer over 4 Hours, As needed, ionized calcium 3.4 mg/dL or less, Starting on Sat12/04/23 at 2130, IV administration of calcium via a central or deep vein is preferred. Avoid administration in small hand veins. VESICANT (RED) celecoxib 200 mg oral capsule (2 sources) Nonsteroidal Anti-inflammatory Drug Start: 12-04-2023 200 mg, oral, 2 times daily, First dose on Sat12/04/23 at 2100, Use with caution for patients with renal insufficiency or greater than 80 years of age. Start 12 hours after the Pre-op dose; IF already receiving ketorolac [TORADOL], then start 12 hours after last ketorolac [TORADOL] dose. Look-alike/sound-al sp medication - verify indication for use. Start: 12-04-2023 End: 12-04-2023 take 200 mg by mouth once 200 mg, oral, Once, On Sat at 0900, For 1 dose, Pre-op, Look-alike/sound-alike medication - verify indication for use. clopidogrel 75 mg oral tablet (20 sources) P2Y12 Platelet Inhibitor take 1 tablet by mouth in the morning clopidogrel (Plavix) 75 MG tablet Take 75 mg by mouth in the morning. Active docosahexaenoic acid 120 mg / eicosapentaenoic acid 180 mg oral capsule (20 sources) omega-3 (fish oi l) 1000 MG capsule 1 capsule 1 (one) time each day at the same time Active empagliflozin 10 mg oral tablet (2 sources) Sodium-Glucose Cotransporter 2 Inhibitor take 1 tablet by mouth once daily Jardiance 10 MG TAKE 1 TABLET BY MOUTH EVERY DAY FOR 30 DAYS Active lisinopril 40 mg oral tablet (20 sources) Angiotensin Converting Enzyme Inhibitor Start: 12-05-19 take 40 mg by mouth once daily 40 mg, oral, Daily, First dose on Sat12/05/23 at 0900, Look-alike/sound-a like medication - verify indication for use. Magnesium Hydroxide (3 sources) take 2 tablets by mouth in the morning magnesium hydroxide (IGLLETTE MILK OF MAGNESIA ORAL) Take 2 tablets by mouth in the morning. take 2 tablets by mouth in the m orning magnesium hydroxide (TUKZ Undergarments MILK OF MAGNESIA ORAL) Take 2 tablets by mouth in the morning. Active 50 ml magnesium sulfate 40 mg/ml injection (2 sources) Start: 12-04-2023 2,000 mg, intr avenous, at 25 mL/hr, Administer over 120 Minutes, As needed, Magnesium level 1.7 to 1.9 mg/dL, or Ionized Magnesium level 0.45 to 0.5 mmol/L., Starting on Sat12/04/23 at 2130, Recheck magnesium level 4 hours after infusion complete. With each magnesium result continue the replacement orders as needed. Start: 12-04-2023 4,000 mg, intr avenous, at 25 mL/hr, Administer over 240 Minutes, As needed, Magnesium level 1.6 mg/dL or less, or Ionized Magnesium level 0.44 mmol/L or less, Starting on Sat12/04/23 at 2130, Recheck magnesium level 4 hours after infusion complete. With each magnesium result continue the replacement orders as needed. metFORMIN hydrochloride 500 mg oral tablet (20 sources) Biguanide Start: 08-23-2022 500 mg, oral, 2 times daily with meals, First dose on Sat12/04/23 at 1700, Hold dose and notify prescriber if blood glucose is less than 100 mg/dL or patient status has changed to NPO. Look-alike/sound-barbara e medication - verify indication for use. May alter blood glucose or insulin requirements. Metformin and use of contrast media will be reviewed according to Metformin and Metformin Containing Medications and Contrast Media policy. metoprolol tartrate 25 mg oral tablet (20 sources) beta-Adrenergic Yazmin Start: 12-04-2023 take 25 mg by mouth twice daily 25 mg, oral, 2 times daily, First dose on Sat12/04/23 at 2100, Look-alike/sound-barbara e medication - verify indication for use. metoprolol tartr ate (Lopressor) 25 MG tablet every 12 (twelve) hours Active Multiple Vitamins-Minerals (Kyle Multivitamin for Men) tablet (20 sources) Multiple Vitamin s-Minerals (Kyle Multivitamin for Men) tablet Kyle Multi Men Active multivit-min/folic/vit K/lyc op (MEN'S MULTIVITAMIN ORAL) (3 sources) take 1 tablet by mouth once in the morning multivit-min/folic/vit K/lycop (MEN'S MULTIVITAMIN ORAL) Take 1 tablet by mouth in the morning. take 1 tablet by neptali th once in the morning multivit-min/folic/vit K/lycop (MEN'S MULTIVITAMIN ORAL) Take 1 tablet by mouth in the morning. Active niacin 500 mg oral tablet (20 sources) Nicotinic Acid niacin 500 MG tablet 1 (one) time each day at the same time Active oxyCODONE hydrochloride 5 mg oral tablet (3 sources) Opioid Agonist Start: 12-06-2023 End: 12-11-2023 take 1 tablet by mouth every six hours as needed for pain oxyCODONE (ROXICODONE) 5 mg immediate release tablet Indications: Status post total knee replacement, right Take 1 tablet (5 mg total) by mouth every 6 (six) hours as needed for pain for up to 5 days. Max Daily Amount: 20 mg 12/06/2023 12/11/2023 Active Start: 12-04-2023 take 1 tablet by neptali th every three hours as needed for pain oxyCODONE (ROXICODONE) immediate release tablet 5 mg Potassium Chloride (1 source) Start: 12-04-2023 potassium chloride (K-TAB,KLOR-CON) CR tablet 30-50 mEq Prochlorperazine (1 source) Phenothiazine Start: 12-04-2023 take 1 tablet by mouth every six hours as needed for nausea and vomiting prochlorperazine (COMPAZINE) tablet 5 mg rosuvastatin calcium 10 mg oral tablet (20 sources) HMG-CoA Reductase Inhibitor Start: 12-05-2023 take 20 mg by mouth once daily 20 mg, oral, Nightly, First dose on [facility] 12/05/23 at 2200, Look-alike/sound-ali ke medication - verify indication for use. Start: 10-28-2023 End: 10-27-2024 take 1 tablet by mouth in the morning rosuvastatin (Crestor) 20 MG tablet Take 20 mg by mouth in the morning. 10/28/2023 10/27/2024 Active simvastatin 40 mg oral tablet (20 sources) HMG-CoA Reductase Inhibitor take 1 tablet by mouth in the morning simvastatin (Zocor) 40 MG tablet Take 40 mg by mouth in the morning. Active 125 ml sodium chloride 9 mg/ml prefilled syringe (3 sources) Start: 10 mL, intravenous, As needed, line care, Starting on Sat12/06/23 at 1407 Start: 12-06-2023 End: 12-06-2023 80 mL, intravenous, Once in imaging, pre/post contrast, Starting on Sat12/06/23 at 1407, For 1 dose Start: 12-04-2023 take 125 mL intraven ously every hour 125 mL/hr, intravenous, Continuous, Starting on Sat12/04/23 at 1500 Completed/Discontinued Medications Medication Drug Class(es) Dates Sig (Normalized) Sig (Original) calcium chloride 0.0014 meq/ml / potassium chloride 0.004 meq/ml / sodium chloride 0.103 meq/ml / sodium lactate 0.028 meq/ml injectable solution (1 source) Start: 12-04-2023 End: 12-04-2023 take 2 mL intravenously every hour 100 mL/hr, intravenous, Continuous, Starting on Sat12/04/23 at 0900, Pre-op, If fluid restriction is not indicated, infuse at a rate up to 5 mL/kg/hr not to exceed the total replacement volume (2 ml/kg/hr) from the time NPO status was initiated. ceFAZolin 2000 mg injection (1 source) Cephalosporin Antibacterial Start: 12-04-2023 End: 12-05-2023 take 2000 mg intravenously every eight hours 2,000 mg, intravenous, at 100 mL/hr, Administer over 30 Minutes, Every 8 hours, First dose on Sat12/04/23 at 2000, For 2 doses, Pharmacy to adjust per renal function; Start 8 hours after pre-op dose for total of 3 doses including pre-op dose. Infuse all doses within 24 hours of initial dose. For patient less than 120 kg. Look-alike/sound-al sp medication - verify indication for use., Indication: Surgical prophylaxis docosahexaenoic acid/epa (FISH OIL ORAL) (2 sources) End: 12-06-2023 take 1500 mg by mouth in the morning docosahexaenoic acid/epa (FISH OIL ORAL) Take 1,500 mg by mouth in the morning. 12/06/2023 Discontinued (Stop Taking at Discharge) take 1500 mg by mouth in the mor masha docosahexaenoic acid/epa (FISH OIL ORAL) Take 1,500 mg by mouth in the morning. Active hydroCHLOROthiazide 12.5 mg oral tablet (20 sources) Thiazide Diuretic Start: 12-05-2023 End: 12-05-2023 take 12.5 mg by mouth once daily 12.5 mg, oral, Daily, First dose on Sat12/05/23 at 0900, Look-alike/sound-alike medication - verify indication for use. iohexoL (OMNIPAQUE) 300 mg iodine/mL 70 mL (1 source) Start: 12-06-2023 End: 12-06-2023 70 mL, intravenous, Once in imaging, contrast, Starting on Sat12/06/23 at 1407, For 1 dose, VESICANT (RED) 5 ml midazolam 1 mg/ml injection (1 source) Benzodiazepine Start: 12-04-2023 End: 12-04-2023 2 mg, intravenous, Once, On Sat12/04/23 at 0900, For 1 dose, Pre-op, Indication: Other, Indication: pre procedure block tranexamic acid 650 mg oral tablet (1 source) Antifibrinolytic Agent Start: 12-04-2023 End: 12-04-2023 take 1950 mg by mouth once 1,950 mg, oral, Once, On Sat12/04/23 at 0900, For 1 dose, Pre-op Problems Active Problems Problem Classification Problem Date Documented Date Episodic/Chronic Cardiac dysrhythmias (1 source) Ventricular premature depolarization; Translations: [Ventricular premature depolarization] Onset: 12-04-2023 Chronic Complication of device; implant or graft (1 source) Stenosis of coronary artery stent, initial encounter; Translations: [STENOSIS OF CORONARY ARTERY STENT, INITIAL ENCOUNTER] Onset: 03-05-2018 Coronary atherosclerosis and other heart disease (11 sources) Atherosclerotic heart disease of [place] coronary artery with unstable angina pectoris; Translations: [Old myocardial infarction] Onset: 03-05-2018 10-18-2023 Chronic Coronary atherosclerosis and other heart disease (1 source) Presence of coronary angioplasty implant and graft; Translations: [PRESENCE OF CORONARY ANGIOPLASTY IMPLANT AND GRAFT] Onset: 03-05-2018 Episodic Diabetes mellitus without complication (2 sources) Type 2 diabetes mellitus without complications; Translations: [TYPE 2 DIABETES MELLITUS WITHOUT COMPLICATIONS] Onset: 03-05-2018 Chronic Disorders of lipid metabolism (7 sources) Hyperlipidemia, unspecified; Translations: [Hyperlipidemia] Onset: 03-05-2018 Chronic Essential hypertension (20 sources) Essential (primary) hypertension; Translations: [Hypertensive disorder] Onset: 03-05-2018 10-30-2023 Chronic Malaise and fatigue (1 source) Other fatigue; Translations: [OTHER FATIGUE] Onset: 07-09-2022 Episodic Osteoarthritis (20 sources) Unilateral primary osteoarthritis, right knee; Translations: [Osteoarthritis of left knee joint] Onset: 03-18-2023 03-18-2023 Chronic Other aftercare (1 source) 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/antip latelets; Translations: [VOCAL PERFORMER (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) USE OF ANTITHROMBOTICS/ANTIP LATELETS] Onset: 03-05-2018 Episodic Other aftercare (1 source) [facility] (current) use of aspirin; Translations: [PENITENTIARY (CURRENT) USE OF ASPIRIN] Onset: 03-05-2018 Episodic Other aftercare (1 source) Other penitentiary (current) drug therapy; Translations: [OTH PENITENTIARY CURRENT DRUG THERAPY] Onset: 07-09-2022 Episodic Other aftercare (1 source) 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 drugs; Translations: [VOCAL PERFORMER (CURRENT) USE OF ORAL HYPOGLYCEMIC DRUGS] Onset: 03-05-2018 Other connective tissue disease (1 source) Presence of right artificial knee joint; Translations: [Presence of right artificial knee joint] Onset: 12-04-2023 Chronic Other connective tissue disease (20 sources) History of total knee arthroplasty; Translations: [Presence of left artificial knee joint] Onset: 03-18-2023 03-18-2023 Chronic Other connective tissue disease (20 sources) Artificial knee joint present; Translations: [Presence of right artificial knee joint] Onset: 12-31-2023 12-31-2023 Chronic Other lower respiratory disease (1 source) Shortness of breath; Translations: [SHORTNESS OF BREATH] Onset: 03-05-2018 Episodic Other nutritional; endocrine; and metabolic disorders (20 sources) Obesity; Translations: [Obesity, unspecified] Onset: 10-30-2023 10-30-2023 Chronic Residual codes; unclassified (20 sources) Obstructive sleep apnea syndrome; Translations: [Obstructive sleep apnea (adult) (pediatric)] Onset: 10-30-2023 10-30-2023 Chronic Residual codes; unclassified (20 sources) Hypersomnia; Translations: [Hypersomnia, unspecified] Onset: 10-30-2023 10-30-2023 Chronic Residual codes; unclassified (20 sources) Daytime somnolence; Translations: [Other hypersomnia] Onset: [...] Other Problems Problem Classification Problem Date Documented Date Episodic/Chronic Coma; stupor; and brain damage (20 sources) Daytime somnolence; Translations: [Somnolence] Onset: 10-30-2023 10-30-2023 Episodic Fluid and electrolyte disorders (2 sources) Hyponatremia; Translations: [Hypo-osmolality and hyponatremia] Onset: 12-05-2023 12-05-2023 Episodic Nonspecific chest pain (2 sources) Other chest pain; Translations: [Other chest pain] Onset: 10-28-2023 Episodic Other lower respiratory disease (20 sources) Snoring; Translations: [Snoring] Onset: 10-30-2023 10-30-2023 Episodic Other lower respiratory disease (20 sources) Hypoxia; Translations: [Hypoxemia] Onset: 10-30-2023 10-30-2023 Episodic Other nervous system disorders (20 sources) Other acute postprocedural pain; Translations: [Other acute postoperative pain] Onset: 12-07-2023 12-08-2023 Episodic Other screening for suspected conditions (not mental disorders or infectious disease) (4 sources) Encounter for screening for malignant neoplasm of prostate; Translations: [Encounter for screening for malignant neoplasm of colon] Onset: 07-09-2022 Episodic Unclassified (1 source) LOW BACK PAIN, UNSPECIFIED; Translations: [LOW BACK PAIN, UNSPECIFIED] Onset: 01-11-2022 Results Test Name Value Interpretation Reference Range Facility Orders Onlyon 07-27-2024 Orders Only [id number] Sonia Stauffer 1945 M [facility] 07/27/2024 [facility] Family History Problem Relation Age of Onset Heart attack Mother 60 Heart attack Maternal Grandmother Family Status - Relation Status Age at Mother Maternal Grandmother [facility] XR Knee - right 1 or 2 Views on 05-27-2024 Imaging Result: 05/27/2024: Standing AP and LAT of right knee showed surgical position and alignment of prosthetic components without evidence of loosening or wear to the femoral, tibial, or patellar components. The alignment appeared to be anatomic. There was no evidence of accelerated or asymmetric wear to the patellar button or tibial tray. There was no evidence of fracture and/or dislocation. Impression: Stable RT total knee replacement. 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 PLATE ROLLER HAND [facility] observation (narrative) [facility] Office Visiton 05-06-2024 Follow-up visit [id number] Sonia Stauffer 1945 M [facility] 05/06/2024 [facility] Family History Problem Relation Age of Onset Heart attack Mother 60 Heart attack Maternal Grandmother Family Status - Relation Status Age at Mother Maternal Grandmother Level of Service:78329 [place] OFFICE/OUTPATIENT ESTABLISHED MOD MDM 30 MIN [facility] XR Knee - right 1 or 2 Views on 01-14-2024 Imaging Result: January 14, 2004 x-rays AP and lateral of the right knee demonstrate cemented knee replacement in good position alignment without signs of loosening fracture or failure. 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 [facility] Study observation (narrative) [facility] CBC without diffon Erythrocyte distribution width (RBC) [Ratio] 13.3 % 11.5 - 15.0 % [facility] Hematocrit (Bld) [Volume fraction] 36.5 % Low 39 - 49 % [facility] Hemoglobin (Bld) [Mass/Vol] 12.4 g/dL Low 13.0 - 17.0 g/dL [facility] Interpretation and review of laboratory results Abnormal [facility] MCH (RBC) [Entitic mass] 31.3 pg 27 - 34 pg [facility] MCHC (RBC) [Mass/Vol] 33.9 g/dL 32 - 36 g/dL [facility] MCV (RBC) [Entitic vol] 93 fL 80 - 100 fL [facility] Platelet mean volume (Bld) [Entitic vol] 8.4 fL 7 - 12 fL [facility] Platelets (Bld) [#/Vol] 241 10*3/uL [facility] RBC (Bld) [#/Vol] 3.95 10*6/uL Low [facility] WBC corrected for nucl RBC Auto (Bld) [#/Vol] 12.[address] [facility] COMPLETE BLOOD COUNTon 12-05 Erythrocyte distribution width (RBC) [Ratio] 13.3 % Normal 11.5-15.0 [facility] Comment on above: Performed By: #### C ORALIA, BMP #### [facility] ([id number]) [address], [address] [place] [address] Hematocrit (Bld) [Volume fraction] 36.5 % Low 39-49 [facility] Comment on above: Performed By: #### C BCA, BMP #### [facility] ([id number]) [address], [address] [place] [address] Hemoglobin (Bld) [Mass/Vol] 12.4 g/dL Low 13.0-17.0 [facility] Comment on above: Performed By: #### C BCA, BMP #### [facility] ([id number]) [address], [address] [place] [address] MCH (RBC) [Entitic mass] 31.3 pg Normal 27-34 [facility] Comment on above: Performed By: #### Casey BARTON, BMP #### [facility] ([id number]) [address], [facility] [address] [place] [address] MCHC (RBC) [Mass/Vol] 33.9 g/dL Normal 32-36 [facility] Comment on above: Performed By: #### C ORALIA, BMP #### [facility] ([id number]) [address] [address] [place] [address] MCV (RBC) [Entitic vol] 93 fL Normal 80-100 [facility] Comment on above: Performed By: #### Casey BARTON, BMP #### [facility] ([id number]) [address], [facility] [address] [place] [address] Platelet mean volume (Bld) [Entitic vol] 8.4 fL Normal 7-12 [facility] Comment on above: Performed By: #### Casey BARTON, BMP #### [facility] ([id number]) [address], [facility] [address] [place] [address] Platelets (Bld) [#/Vol] 241 10*3/uL Normal 150-450 [facility] Comment on above: Performed By: #### Casey BARTON, BMP #### [facility] [facility] ([id number]) [address], [address] [place] [address] RBC COUNT 3.95 X10E12/L Low 4.10-5.70 [facility] Comment on above: Performed By: #### Casey BARTON, BMP #### [facility] ([id number]) [address], [address] [place] [address] WBC (Bld) [#/Vol] 12.0 10*3/uL High 4.0-11.0 [facility] Comment on above: Performed By: #### Casey BARTON, BMP #### [facility] ([id number]) [address], [address] [place] [address] COMPREHENSIVE METABOLIC PANE Jace 12-06-2023 Albumin [Mass/Vol] 3.3 g/dL Normal 3.2-5.3 [facility] Comment on above: Performed By: #### C BCA, BMP #### [facility] ([id number]) [address], [address] [place] [address] ALP [Catalytic activity/Vol] 22 U/L Low 39-130 [facility] Comment on above: Performed By: #### C BCA, BMP #### [facility] ([id number]) [address], [address] [place] [address] ALT [Catalytic activity/Vol] 13 U/L Normal 0-40 [facility] Comment on above: Performed By: #### C BCA, BMP #### [facility] ([id number]) [address], [address] [place] [address] Anion gap [Moles/Vol] 7 mmol/L Normal 5-15 [facility] Comment on above: Performed By: #### C BCA, BMP #### [facility] ([id number]) [address], [address] [place] [address] AST [Catalytic activity/Vol] 17 U/L Normal 0-41 [facility] Comment on above: Performed By: #### C BCA, BMP #### [facility] ([id number]) [address], [address] [place] [address] Bilirubin [Mass/Vol] 1.7 mg/dL High 0.3-1.2 [facility] Comment on above: Performed By: #### C BCA, BMP #### [facility] ([id number]) [address], [address] [place] [address] Calcium [Mass/Vol] 7.9 mg/dL Low 8.5-10.5 [facility] Comment on above: Performed By: #### C BCA, BMP #### [facility] ([id number]) [address] [place] [address] Chloride [Moles/Vol] 98 mmol/L Normal 98-109 [facility] Comment on above: Performed By: #### C BCA, BMP #### [facility] ([id number]) [address] [place] [address] CO2 [Moles/Vol] 26 mmol/L Normal 22-32 [facility] Comment on above: Performed By: #### C BCA, BMP #### [facility] ([id number]) [address], [address] [place] [address] Creatinine [Mass/Vol] 0.96 mg/dL Normal 0.70-1.20 [facility] Comment on above: Result Comment: METH OD TRACEABLE TO IDMS STANDARD Performed By: #### C BCA, BMP #### [facility] ([id number]) [address], [address] [place] [address] GFR/1.73 sq M.predicted among non-blacks MDRD (S/P/Bld) [Vol rate/Area] 81 mL/min/{1.73_m2} Normal >59 [facility] Comment on above: Result Comment: Reported eGFR is based on the CKD-EPI 2020 equation that does not use a race coefficient. Performed By: #### C BCA, BMP #### [facility] ([id number]) [address] [place] [address] Glucose [Mass/Vol] 96 mg/dL Normal 65-99 [facility] Comment on above: Performed By: #### C BCA, BMP #### [facility] ([id number]) [address], [address] [place] [address] Potassium [Moles/Vol] 3.9 mmol/L Normal 3.5-5.0 [facility] Comment on above: Performed By: #### C BCA, BMP #### [facility] ([id number]) [address] [place] [address] Protein [Mass/Vol] 5.8 g/dL Low 6.0-8.0 [facility] Comment on above: Performed By: #### C BCA, BMP #### [facility] ([id number]) [address] [place] [address] Sodium [Moles/Vol] 131 mmol/L Low 134-146 [facility] Comment on above: Performed By: #### C BCA, BMP #### [facility] ([id number]) [address], [address] [place] [address] Urea nitrogen [Mass/Vol] 17 mg/dL Normal 5-27 [facility] Comment on above: Performed By: #### C BCA, BMP #### [facility] ([id number]) [address], [address] [place] [address] CT CHEST W CONTon 12-06-2023 CT CHEST [...] Jarrett MD on 12/06/2023 3:45 PM Normal [facility] CT Chest limited W contrast Javier 12-06-2023 CT of the chest with contrast dated [...] Kameron Jarrett MD on 12/06/2023 3:45 PM [facility] Kameron Jarrett MD - 12/06/2023 CT of the chest with contrast dated [...] Kameron Jarrett MD on 12/06/2023 3:45 PM [facility] Radiology Study observation (narrative) [facility] CT Chest limited W contrast IVOrdered By: Kameron Jarrett on 12-06-2023 [facility] Work Phone: Comprehensive metabolic pane jace 12-06-2023 Albumin [Mass/Vol] 3.3 g/dL 3.2 - 5.3 g/dL [facility] ALP [Catalytic activity/Vol] 22 U/L Low 39 - 130 U/L [facility] ALT No additional P-5'-P [Catalytic activity/Vol] 13 U/L 0 - 40 U/L [facility] Anion gap [Moles/Vol] 7 mmol/L 5 - 15 mmol/L [facility] AST [Catalytic activity/Vol] 17 U/L 0 - 41 U/L [facility] Bilirubin [Mass/Vol] 1.7 mg/dL High 0.3 - 1.2 mg/dL [facility] Calcium [Mass/Vol] 7.9 mg/dL Low 8.5 - 10. 5 mg/dL [facility] Chloride [Moles/Vol] 98 mmol/L 98 - 109 mmol/L [facility] CO2 [Moles/Vol] 26 mmol/L 22 - 32 mmol/L [facility] Creatinine [Mass/Vol] 0.96 mg/dL 0.70 - 1.20 mg/dL [facility] Comment on above: METHOD TRACEABLE TO IDVT STANDARD eGFR (CKD-EPI)non-race dependent 81 - PINF [facility] Comment on above: Reported eGFR is based on the CKD-EPI 2020 equation that does not use a race coefficient. Glucose [Mass/Vol] 96 mg/dL 65 - 99 mg/dL [facility] Interpretation and review of laboratory results Abnormal [facility] Potassium [Moles/Vol] 3.9 mmol/L 3.5 - 5.0 mmol/L [facility] Protein [Mass/Vol] 5.8 g/dL Low 6.0 - 8.0 g/dL [facility] Sodium [Moles/Vol] 131 mmol/L Low 134 - 146 mmol/L [facility] Urea nitrogen [Mass/Vol] 17 mg/dL 5 - 27 mg/dL [facility] MAGNESIUMon 12-06-2023 Magnesium [Mass/Vol] 1.9 mg/dL Normal 1.8-2.6 [facility] Comment on above: Performed By: #### C BCA, BMP #### [facility] ([id number]) [address] [place] [address] Magnesiumon 12-06-2023 Magnesium [Mass/Vol] 1.9 mg/dL 1.8 - 2.6 mg/dL [facility] No Panel Informationon 12-05 [facility] CBC without diffon Erythrocyte distribution width (RBC) [Ratio] 13.0 % 11.5 - 15.0 % [facility] Hematocrit (Bld) [Volume fraction] 38.1 % Low 39 - 49 % [facility] Hemoglobin (Bld) [Mass/Vol] 13.1 g/dL 13.0 - 17.0 g/dL [facility] Interpretation and review of laboratory results Abnormal [facility] MCH (RBC) [Entitic mass] 31.2 pg 27 - 34 pg [facility] MCHC (RBC) [Mass/Vol] 34.4 g/dL 32 - 36 g/dL [facility] MCV (RBC) [Entitic vol] 91 fL 80 - 100 fL [facility] Platelet mean volume (Bld) [Entitic vol] 8.2 fL 7 - 12 fL [facility] Platelets (Bld) [#/Vol] 243 10*3/uL [facility] RBC (Bld) [#/Vol] 4.20 10*6/uL [facility] WBC corrected for nucl RBC Auto (Bld) [#/Vol] 12.6 High [facility] COMPLETE BLOOD COUNTon 12-04 Erythrocyte distribution width (RBC) [Ratio] 13.0 % Normal 11.5-15.0 [facility] Comment on above: Performed By: #### C ORALIA, BMP #### [facility] ([id number]) [address], [address] [place] [address] Hematocrit (Bld) [Volume fraction] 38.1 % Low 39-49 [facility] Comment on above: Performed By: #### C ORALIA, BMP #### [facility] ([id number]) [address], [address] [place] [address] Hemoglobin (Bld) [Mass/Vol] 13.1 g/dL Normal 13.0-17.0 [facility] Comment on above: Performed By: #### C ORALIA, BMP #### [facility] ([id number]) [address], [address] [place] [address] MCH (RBC) [Entitic mass] 31.2 pg Normal 27-34 [facility] Comment on above: Performed By: #### C ORALIA, BMP #### [facility] ([id number]) [address], [address] [place] [address] MCHC (RBC) [Mass/Vol] 34.4 g/dL Normal 32-36 [facility] Comment on above: Performed By: #### C ORALIA, BMP #### [facility] ([id number]) [address] [place] [address] MCV (RBC) [Entitic vol] 91 fL Normal 80-100 [facility] Comment on above: Performed By: #### C ORALIA, BMP #### [facility] ([id number]) [address], [address] [place] [address] Platelet mean volume (Bld) [Entitic vol] 8.2 fL Normal 7-12 [facility] Comment on above: Performed By: #### C ORALIA, BMP #### [facility] ([id number]) [address], [address] [place] [address] Platelets (Bld) [#/Vol] 243 10*3/uL Normal 150-450 [facility] Comment on above: Performed By: #### C ORALIA, BMP #### [facility] ([id number]) [address], [address] [place] [address] RBC COUNT 4.20 X10E12/L Normal 4.10-5.70 [facility] Comment on above: Performed By: #### C ORALIA, BMP #### [facility] ([id number]) [address] [place] [address] WBC (Bld) [#/Vol] 12.6 10*3/uL High 4.0-11.0 [facility] Comment on above: Performed By: #### C ORALIA, BMP #### [facility] ([id number]) [address] [place] [address] COMPREHENSIVE METABOLIC PANE Jace 12-05-2023 Albumin [Mass/Vol] 3.3 g/dL Normal 3.2-5.3 [facility] Comment on above: Performed By: #### C ORALIA, BMP #### [facility] ([id number]) [address], [address] [place] [address] ALP [Catalytic activity/Vol] 25 U/L Low 39-130 [facility] Comment on above: Performed By: #### Casey BARTON, BMP #### [facility] ([id number]) [address], [address] [place] [address] ALT [Catalytic activity/Vol] 16 U/L Normal 0-40 [facility] Comment on above: Performed By: #### Casey BCA, BMP #### [facility] ([id number]) [address], [address] [place] [address] Anion gap [Moles/Vol] 7 mmol/L Normal 5-15 [facility] Comment on above: Performed By: #### C BCA, BMP #### [facility] ([id number]) [address], [address] [place] [address] AST [Catalytic activity/Vol] 16 U/L Normal 0-41 [facility] Comment on above: Performed By: #### C BCA, BMP #### [facility] ([id number]) [address] [place] [address] Bilirubin [Mass/Vol] 1.6 mg/dL High 0.3-1.2 [facility] Comment on above: Performed By: #### C BCA, BMP #### [facility] ([id number]) [address], [address] [place] [address] Calcium [Mass/Vol] 7.9 mg/dL Low 8.5-10.5 [facility] Comment on above: Performed By: #### C BCA, BMP #### [facility] ([id number]) [address] [place] [address] Chloride [Moles/Vol] 97 mmol/L Low 98-109 [facility] Comment on above: Performed By: #### C BCA, BMP #### [facility] ([id number]) [address] [place] [address] CO2 [Moles/Vol] 25 mmol/L Normal 22-32 [facility] Comment on above: Performed By: #### C BCA, BMP #### [facility] ([id number]) [address] [place] [address] Creatinine [Mass/Vol] 0.88 mg/dL Normal 0.70-1.20 [facility] Comment on above: Result Comment: METH OD TRACEABLE TO IDMS STANDARD Performed By: #### C BCA, BMP #### [facility] ([id number]) [address], [address] [place] [address] GFR/1.73 sq M.predicted among non-blacks MDRD (S/P/Bld) [Vol rate/Area] 89 mL/min/{1.73_m2} Normal >59 [facility] Comment on above: Result Comment: Reported eGFR is based on the CKD-EPI 2020 equation that does not use a race coefficient. Performed By: #### C BCA, BMP #### [facility] ([id number]) [address], [address] [place] [address] Glucose [Mass/Vol] 134 mg/dL High 65-99 [facility] Comment on above: Performed By: #### C BCA, BMP #### [facility] ([id number]) [address] [place] [address] Potassium [Moles/Vol] 4.0 mmol/L Normal 3.5-5.0 [facility] Comment on above: Performed By: #### C BCA, BMP #### [facility] ([id number]) [address] [place] [address] Protein [Mass/Vol] 5.6 g/dL Low 6.0-8.0 [facility] Comment on above: Performed By: #### C BCA, BMP #### [facility] ([id number]) [address] [place] [address] Sodium [Moles/Vol] 129 mmol/L Low 134-146 [facility] Comment on above: Performed By: #### C BCA, BMP #### [facility] ([id number]) [address] [place] [address] Urea nitrogen [Mass/Vol] 15 mg/dL Normal 5-27 [facility] Comment on above: Performed By: #### C BCA, BMP #### [facility] ([id number]) [address] [place] [address] Comprehensive metabolic pane jace 12-05-2023 Albumin [Mass/Vol] 3.3 g/dL 3.2 - 5.3 g/dL [facility] ALP [Catalytic activity/Vol] 25 U/L Low 39 - 130 U/L [facility] ALT No additional P-5'-P [Catalytic activity/Vol] 16 U/L 0 - 40 U/L [facility] Anion gap [Moles/Vol] 7 mmol/L 5 - 15 mmol/L [facility] AST [Catalytic activity/Vol] 16 U/L 0 - 41 U/L [facility] Bilirubin [Mass/Vol] 1.6 mg/dL High 0.3 - 1.2 mg/dL [facility] Calcium [Mass/Vol] 7.9 mg/dL Low 8.5 - 10. 5 mg/dL [facility] Chloride [Moles/Vol] 97 mmol/L Low 98 - 109 mmol/L [facility] CO2 [Moles/Vol] 25 mmol/L 22 - 32 mmol/L [facility] Creatinine [Mass/Vol] 0.88 mg/dL 0.70 - 1.20 mg/dL [facility] Comment on above: METHOD TRACEABLE TO [facility] STANDARD eGFR (CKD-EPI)non-race dependent 89 - PINF [facility] Comment on above: Reported eGFR is based on the CKD-EPI 2020 equation that does not use a race coefficient. Glucose [Mass/Vol] 134 mg/dL High 65 - 99 mg/dL [facility] Interpretation and review of laboratory results Abnormal [facility] Potassium [Moles/Vol] 4.0 mmol/L 3.5 - 5.0 mmol/L [facility] Protein [Mass/Vol] 5.6 g/dL Low 6.0 - 8.0 g/dL [facility] Sodium [Moles/Vol] 129 mmol/L Low 134 - 146 mmol/L [facility] Urea nitrogen [Mass/Vol] 15 mg/dL 5 - 27 mg/dL [facility] ECG 12 leadon 12-05-[address] [facility] Free T4 [Mass/Vol]on 024 [facility] MAGNESIUMon 12-05-2023 Magnesium [Mass/Vol] 2.1 mg/dL Normal 1.8-2.6 [facility] Comment on above: Performed By: #### C ORALIA, BMP #### [facility] ([id number]) [address] [place] [address] Magnesiumon 12-05-2023 Magnesium [Mass/Vol] 2.1 mg/dL 1.8 - 2.6 mg/dL [facility] No Panel Informationon 12-04 [facility] SODIUMon 12-05-2023 Sodium [Moles/Vol] 129 mmol/L Low 134-146 [facility] Comment on above: Performed By: #### C ORALIA, BMP #### [facility] ([id number]) [address] [place] [address] Sodiumon 12-05-2023 Sodium [Moles/Vol] 129 mmol/L Low 134 - 146 mmol/L [facility] Sodium [Moles/Vol]on 024 Interpretation and review of laboratory results [facility] T4, freeon 12-05-2023 Free T4 [Mass/Vol] 0.84 ng/dL 0.61 - 1. 60 ng/dL [facility] Comment on above: CLIA ID [id number] URINALYSISon 12-05-2023 Bilirubin Ql (U) Negative Normal NEG [facility] Comment on above: Performed By: #### Casey BARTON, BMP #### [facility] ([id number]) [address] [place] [address] BLOOD/HGB Negative Normal NEG [facility] Comment on above: Performed By: #### Casey BARTON, BMP #### [facility] ([id number]) [address] [place] [address] Color (U) YELLOW Normal YELLOW [facility] Comment on above: Performed By: #### Casey BARTON, BMP #### [facility] ([id number]) [address] [place] [address] Glucose Ql (U) Negative Normal NEG [facility] Comment on above: Performed By: #### C ORALIA, BMP #### [facility] ([id number]) [address] [place] [address] Ketones Ql (U) Negative Normal NEG [facility] Comment on above: Performed By: #### C ORALIA, BMP #### [facility] ([id number]) [address] [place] [address] Leukocyte esterase Test strip Ql (U) Negative Normal NEG [facility] Comment on above: Performed By: #### C ORALIA, BMP #### [facility] ([id number]) [address] [place] [address] Nitrite Ql (U) Negative Normal NEG [facility] Comment on above: Performed By: #### C ORALIA, BMP #### [facility] ([id number]) [address] [place] [address] pH (U) 6.0 [pH] Normal 5.0-8.5 [facility] Comment on above: Performed By: #### C ORALIA, BMP #### [facility] ([id number]) [address] [place] [address] Protein Ql (U) Negative Normal NEG [facility] Comment on above: Performed By: #### C ORALIA, BMP #### [facility] ([id number]) [address] [place] [address] Specific gravity (U) [Rel density] >1.030 Normal 1.003-1.035 [facility] Comment on above: Performed By: #### C ORALIA, BMP #### [facility] ([id number]) [address] [place] [address] TURBIDITY CLEAR Normal CLEAR [facility] Comment on above: Performed By: #### C ORALIA, BMP #### [facility] ([id number]) [address] [place] [address] Urobilinogen Qn (U) 1.0 {Dia'U}/dL Normal <1.1 [facility] Comment on above: Performed By: #### C ORALIA, BMP #### [facility] ([id number]) [address] [place] [address] Urinalysison 12-05-2023 Bilirubin Ql (U) Negative Negative^Ne g ative [facility] Color (U) YELLOW YELLOW^YELLO W [facility] Glucose (U) [Mass/Vol] Negative Negative^Neg ative mg/dL [facility] Hemoglobin Auto test strip Ql (U) Negative Negative^Neg ative [facility] Ketones (U) [Mass/Vol] Negative Negative^Neg ative mg/dL [facility] Leukocyte esterase Auto test strip Ql (U) Negative Negative^Neg ative [facility] Nitrite Auto test strip Ql (U) Negative Negative^Neg ative [facility] pH (U) 6.0 [pH] 5.0 - 8.5 [facility] Protein (U) [Mass/Vol] Negative Negative^Neg ative mg/dL [facility] Specific gravity Refractometry automated (U) [Rel density] 1.003 - 1.035 [facility] Turbidity Ql (U) CLEAR CLEAR^CLEAR [facility] Urobilinogen Qn (U) 1.[address] [facility] XR CHEST 2 VWSon 12-05-2023 XR CHEST 2 VWS XR CHEST 2 [...] Wan MD on 12/05/2023 10:52 AM Normal [facility] XR Chest PA and Lateralon Indication: Leukocytosis. TECHNIQUE: Frontal and lateral views [...] Anastacia Wan MD on 12/05/2023 10:52 AM [facility] Anastacia Wan M D - 12/05/2023 Indication: Leukocytosis. TECHNIQUE: Frontal and lateral views [...] Anastacia Wan MD on 12/05/2023 10:52 AM [facility] Radiology Study observation (narrative) [facility] XR Chest PA and LateralOrder ed By: Anastacia Wan on 12-05-2023 [facility] Work Phone: ABO Rh Repeaton 12-04-2023 ABO B [facility] Rh Nom (Bld) Positive [facility] CBC without diffon Erythrocyte distribution width (RBC) [Ratio] 13.1 % 11.5 - 15.0 % [facility] Hematocrit (Bld) [Volume fraction] 42.1 % 39 - 49 % [facility] Hemoglobin (Bld) [Mass/Vol] 14.5 g/dL 13.0 - 17.0 g/dL [facility] Interpretation and review of laboratory results Abnormal [facility] MCH (RBC) [Entitic mass] 31.2 pg 27 - 34 pg [facility] MCHC (RBC) [Mass/Vol] 34.3 g/dL 32 - 36 g/dL [facility] MCV (RBC) [Entitic vol] 91 fL 80 - 100 fL [facility] Platelet mean volume (Bld) [Entitic vol] 7.9 fL 7 - 12 fL [facility] Platelets (Bld) [#/Vol] 268 10*3/uL [facility] RBC (Bld) [#/Vol] 4.63 10*6/uL [facility] WBC corrected for nucl RBC Auto (Bld) [#/Vol] 14.2 High [facility] COMPLETE BLOOD COUNTon 12-03 Erythrocyte distribution width (RBC) [Ratio] 13.1 % Normal 11.5-15.0 [facility] Comment on above: Performed By: #### C DIAMANTE, CMP, 86663-2, 2776-, TSHR, 3024-7 #### [facility] ([id number]) [address] [place] [address] Hematocrit (Bld) [Volume fraction] 42.1 % Normal 39-49 [facility] Comment on above: Performed By: #### Casey BC, CMP, , 2776-, TSHR, 3027 #### [facility] ([id number]) [address] [place] [address] Hemoglobin (Bld) [Mass/Vol] 14.5 g/dL Normal 13.0-17.0 [facility] Comment on above: Performed By: #### Casey BC, CMP, 29910-6, 2776-, TSHR, 3024-7 #### [facility] ([id number]) [address] [place] [address] MCH (RBC) [Entitic mass] 31.2 pg Normal 27-34 [facility] Comment on above: Performed By: #### Casey BC, CMP, 69269-7, 2776-, TSHR, 3024-7 #### [facility] ([id number]) [address] [place] [address] MCHC (RBC) [Mass/Vol] 34.3 g/dL Normal 32-36 [facility] Comment on above: Performed By: #### C BC, CMP, 64058-1, 2776-, TSHR, 3024-7 #### [facility] ([id number]) [address] [place] [address] MCV (RBC) [Entitic vol] 91 fL Normal 80-100 [facility] Comment on above: Performed By: #### Casey BC, CMP, , 2776-, TSHR, 3027 #### [facility] ([id number]) [address] [place] [address] Platelet mean volume (Bld) [Entitic vol] 7.9 fL Normal 7-12 [facility] Comment on above: Performed By: #### C BC, CMP, , 2776-, TSHR, 3027 #### [facility] ([id number]) [address] [place] [address] Platelets (Bld) [#/Vol] 268 10*3/uL Normal 150-450 [facility] Comment on above: Performed By: #### Casey BC, CMP, , 2776-, TSHR, 3027 #### [facility] ([id number]) [address] [place] [address] RBC COUNT 4.63 X10E12/L Normal 4.10-5.70 [facility] Comment on above: Performed By: #### Casey BC, CMP, , 2776-, TSHR, 302-7 #### [facility] ([id number]) [address] [place] [address] WBC (Bld) [#/Vol] 14.2 10*3/uL High 4.0-11.0 [facility] Comment on above: Performed By: #### C BC, CMP, 68261-0, 2777-1, TSHR, 3024-7 #### [facility] ([id number]) [address] [place] [address] [id number] COMPREHENSIVE METABOLIC PANE Jace 12-04-2023 Albumin [Mass/Vol] 3.8 g/dL Normal 3.2-5.3 [facility] Comment on above: Performed By: #### C BC, CMP, 66908-2, 2777-1, TSHR, 3024-7 #### [facility] ([id number]) [address] [place] [address] 20194 ALP [Catalytic activity/Vol] 32 U/L Low 39-130 [facility] Comment on above: Performed By: #### C BC, CMP, 31897-3, 2777-1, TSHR, 3024-7 #### [facility] ([id number]) [address] [place] [address] 39467 ALT [Catalytic activity/Vol] 20 U/L Normal 0-40 [facility] Comment on above: Performed By: #### C BC, CMP, 69389-0, 2777-1, TSHR, 3024-7 #### [facility] ([id number]) [address] [place] [address] 68345 Anion gap [Moles/Vol] 10 mmol/L Normal 5-15 [facility] Comment on above: Performed By: #### C BC, CMP, 45278-3, 2777-1, TSHR, 3024-7 #### [facility] ([id number]) [address] [place] [address] 11564 AST [Catalytic activity/Vol] 21 U/L Normal 0-41 [facility] Comment on above: Performed By: #### C BC, CMP, 83900-3, 2777-1, TSHR, 3024-7 #### [facility] ([id number]) [address] [place] [address] 97159 Bilirubin [Mass/Vol] 1.6 mg/dL High 0.3-1.2 [facility] Comment on above: Performed By: #### Casey BC, CMP, 60305-3, 2776-, TSHR, 3023-7 #### [facility] ([id number]) [address] [place] [address] 59181 Calcium [Mass/Vol] 8.2 mg/dL Low 8.5-10.5 [facility] Comment on above: Performed By: #### Casey BOBBY, CMP, , 2776-05, TSHR, 7 #### [facility] ([id number]) [address] [place] [address] 62396 Chloride [Moles/Vol] 95 mmol/L Low 98-109 [facility] Comment on above: Performed By: #### Casey BOBBY, CMP, , 2776-05, TSHR, 3027 #### [facility] ([id number]) [address] [place] [address] 60789 CO2 [Moles/Vol] 25 mmol/L Normal 22-32 [facility] Comment on above: Performed By: #### Casey BC, CMP, , 2776-05, TSHR, 7 #### [facility] ([id number]) [address] [place] [address] 72658 Creatinine [Mass/Vol] 0.91 mg/dL Normal 0.70-1.20 [facility] Comment on above: Result Comment: METH OD TRACEABLE TO IDMS STANDARD Performed By: #### Casey BC, CMP, 59857-9, 2776-, TSHR, 302-7 #### [facility] ([id number]) [address] [place] [address] 51547 GFR/1.73 sq M.predicted among non-blacks MDRD (S/P/Bld) [Vol rate/Area] 87 mL/min/{1.73_m2} Normal >59 [facility] Comment on above: Result Comment: Reported eGFR is based on the CKD-EPI 2020 equation that does not use a race coefficient. Performed By: #### C BC, CMP, , 2776-05, TSHR, 3024-7 #### [facility] ([id number]) [address] [place] [address] 48534 Glucose [Mass/Vol] 174 mg/dL High 65-99 [facility] Comment on above: Performed By: #### C BC, CMP, , 2776-05, TSHR, 3024-7 #### [facility] ([id number]) [address] [place] [address] 60933 Potassium [Moles/Vol] 3.8 mmol/L Normal 3.5-5.0 [facility] Comment on above: Performed By: #### C BC, CMP, , 2776-05, TSHR, 3024-7 #### [facility] ([id number]) [address] [place] [address] 75504 Protein [Mass/Vol] 6.3 g/dL Normal 6.0-8.0 [facility] Comment on above: Performed By: #### C BC, CMP, , 2776-05, TSHR, 3024-7 #### [facility] ([id number]) [address] [place] [address] 50929 Sodium [Moles/Vol] 130 mmol/L Low 134-146 [facility] Comment on above: Performed By: #### Casey BC, CMP, , 2776-05, TSHR, 3024-7 #### [facility] ([id number]) [address] [place] [address] [place] [address] Urea nitrogen [Mass/Vol] 16 mg/dL Normal 5-27 [facility] Comment on above: Performed By: #### C BC, CMP, 52248-8, 2777-1, TSHR, 3024-7 #### [facility] ([id number]) [address] [facility] [place] [address] Comprehensive metabolic pane jace 12-04-2023 Albumin [Mass/Vol] 3.8 g/dL 3.2 - 5.3 g/dL [facility] ALP [Catalytic activity/Vol] 32 U/L Low 39 - 130 U/L [facility] ALT No additional P-5'-P [Catalytic activity/Vol] 20 U/L 0 - 40 U/L [facility] Anion gap [Moles/Vol] 10 mmol/L 5 - 15 mmol/L [facility] AST [Catalytic activity/Vol] 21 U/L 0 - 41 U/L [facility] Bilirubin [Mass/Vol] 1.6 mg/dL High 0.3 - 1.2 mg/dL [facility] Calcium [Mass/Vol] 8.2 mg/dL Low 8.5 - 10. 5 mg/dL [facility] Chloride [Moles/Vol] 95 mmol/L Low 98 - 109 mmol/L [facility] CO2 [Moles/Vol] 25 mmol/L 22 - 32 mmol/L [facility] Creatinine [Mass/Vol] 0.91 mg/dL 0.70 - 1.20 mg/dL [facility] Comment on above: METHOD TRACEABLE TO IDVT STANDARD eGFR (CKD-EPI)non-race dependent 87 - PINF [facility] Comment on above: Reported eGFR is based on the CKD-EPI 2020 equation that does not use a race coefficient. Glucose [Mass/Vol] 174 mg/dL High 65 - 99 mg/dL [facility] Interpretation and review of laboratory results Abnormal [facility] Potassium [Moles/Vol] 3.8 mmol/L 3.5 - 5.0 mmol/L [facility] Protein [Mass/Vol] 6.3 g/dL 6.0 - 8.0 g/dL [facility] Sodium [Moles/Vol] 130 mmol/L Low 134 - 146 mmol/L [facility] Urea nitrogen [Mass/Vol] 16 mg/dL 5 - 27 mg/dL [facility] FREE T4on 12-04-2023 Free T4 [Mass/Vol] 0.84 ng/dL Normal 0.61-1.60 [facility] Comment on above: Performed By: #### C BC, CMP, , 2776-05, TSHR, 3024-7 #### [facility] ([id number]) [address] [place] [address] 95688 MAGNESIUMon 12-04-2023 Magnesium [Mass/Vol] 1.8 mg/dL Normal 1.8-2.6 [facility] Comment on above: Performed By: #### C DIAMANTE, CMP, , 2776-05, TSHR, 302-7 #### [facility] ([id number]) [address] [place] [address] 74009 Magnesiumon 12-04-2023 Magnesium [Mass/Vol] 1.8 mg/dL 1.8 - 2.6 mg/dL [facility] No Panel Informationon 12-03 [facility] PHOSPHORUSon 12-04-2023 Phosphate [Mass/Vol] 2.5 mg/dL Normal 2.4-4.9 [facility] Comment on above: Performed By: #### C BC, CMP, , 2776-05, TSHR, 3024-7 #### [facility] ([id number]) [address] [place] [address] 34886 Phosphoruson 12-04-2023 Phosphate [Mass/Vol] 2.5 mg/dL 2.4 - 4.9 mg/dL [facility] TSH WITH REFLEXon 12-04-2023 TSH 0.45 uIU/mL Low 0.49-4.67 [facility] Comment on above: Performed By: #### C BC, CMP, , 2776-05, TSHR, 3024-7 #### [facility] ([id number]) [address] [place] [address], [place] [address] TSH with Reflexon 12-04-2023 Interpretation and review of laboratory results Abnormal [facility] TSH Qn 0.45 m[IU]/L Low [facility] XR KNEE RT 1 OR 2 VWSon 11-17 XR KNEE RT 1 OR 2 VWS XR KNEE RT 1 OR 2 VWS History: [facility] aftercare. Knee replacement. Pain Study: Right knee Two view study. Comparison: None Impression: Femoral and tibial components are excellent position. No evidence of periprosthetic fracture or acute complication. Skin fei are noted. Follow-up is planned. Excellent alignment. Finalized by Vidhi Wong MD on 12/04/2023 1:28 PM Normal [facility] XR Knee - right 1 or 2 Views on 12-04-2023 History: [facility] aftercare. Knee replacement. Pain Study: Right knee Two view study. Comparison: None Impression: Femoral and tibial components are excellent position. No evidence of periprosthetic fracture or acute complication. Skin fei are noted. Follow-up is planned. Excellent alignment. Finalized by Vidhi Wong MD on 12/04/2023 1:28 PM [facility] Vidhi Wong MD - 12/04/2023 History: [facility] aftercare. Knee replacement. Pain Study: Right knee Two view study. Comparison: None Impression: Femoral and tibial components are excellent position. No evidence of periprosthetic fracture or acute complication. Skin fei are noted. Follow-up is planned. Excellent alignment. Finalized by Vidhi Wong MD on 12/04/2023 1:28 PM [facility] Study [facility] (narrative) [facility] XR Knee - right 1 or 2 Views Ordered By: Vidhi Wong on 12-04-2023 [facility] Work Phone: BASIC METABOLIC PANLon 11-06 Anion gap [Moles/Vol] 10 mmol/L Normal 5-15 [facility] Comment on above: Performed By: #### C BCA, BMP #### [facility] ([id number]) [address], [address] [place] [address] Calcium [Mass/Vol] 8.8 mg/dL Normal 8.5-10.5 [facility] Comment on above: Performed By: #### C BCA, BMP #### [facility] ([id number]) [address], [address] [place] [address] Chloride [Moles/Vol] 99 mmol/L Normal 98-109 [facility] Comment on above: Performed By: #### C BCA, BMP #### [facility] ([id number]) [address], [address] [place] [address] CO2 [Moles/Vol] 27 mmol/L Normal 22-32 [facility] Comment on above: Performed By: #### C BCA, BMP #### [facility] ([id number]) [address] [address] [place] [address] Creatinine [Mass/Vol] 0.80 mg/dL Normal 0.60-1.30 [facility] Comment on above: Result Comment: METH OD TRACEABLE TO IDMS STANDARD Performed By: #### C BCA, BMP #### [facility] ([id number]) [address], [address] [place] [address] eGFR (CKD-EPI) NON-RACE DEPENDENT >90 Normal >59 [facility] Comment on above: Result Comment: Reported eGFR is based on the CKD-EPI 2020 equation that does not use a race coefficient. Performed By: #### C BCA, BMP #### [facility] ([id number]) [address] [address] [place] [address] Glucose [Mass/Vol] 89 mg/dL Normal 65-99 [facility] Comment on above: Performed By: #### C BCA, BMP #### [facility] ([id number]) [address], [address] [place] [address] Potassium [Moles/Vol] 4.2 mmol/L Normal 3.5-5.0 [facility] Comment on above: Performed By: #### C BCA, BMP #### [facility] ([id number]) [address], [address] [place] [address] Sodium [Moles/Vol] 136 mmol/L Normal 134-146 [facility] Comment on above: Performed By: #### C BCA, BMP #### [facility] ([id number]) [address], [address] [place] [address] Urea nitrogen [Mass/Vol] 9 mg/dL Normal 5-27 [facility] Comment on above: Performed By: #### C BCA, BMP #### [facility] ([id number]) [address], [address] [place] [address] Basic Metabolic Panelon 06-2 Anion gap [Moles/Vol] 10 mmol/L 5 - 15 mmol/L [facility] Calcium [Mass/Vol] 8.8 mg/dL 8.5 - 10. 5 mg/dL [facility] Chloride [Moles/Vol] 99 mmol/L 98 - 109 mmol/L [facility] CO2 [Moles/Vol] 27 mmol/L 22 - 32 mmol/L [facility] Creatinine [Mass/Vol] 0.80 mg/dL 0.60 - 1.30 mg/dL [facility] Comment on above: METHOD TRACEABLE TO IDMS STANDARD eGFR (CKD-EPI)non-race dependent - PINF [facility] Comment on above: Reported eGFR is based on the CKD-EPI 2020 equation that does not use a race coefficient. Glucose [Mass/Vol] 89 mg/dL 65 - 99 mg/dL [facility] Potassium [Moles/Vol] 4.2 mmol/L 3.5 - 5.0 mmol/L [facility] Sodium [Moles/Vol] 136 mmol/L 134 - 146 mmol/L [facility] Urea nitrogen [Mass/Vol] 9 mg/dL 5 - 27 mg/dL [facility] CBC AND AUTO DIFFon 11-06- ABSOLUTE BASOPHIL 0.1 X10E9/L Normal 0.0-0.2 [facility] Comment on above: Performed By: #### C ORALIA, BMP #### [facility] ([id number]) [address], [address] [place] [address] ABSOLUTE NEUTROPHIL 4.4 X10E9/L Normal 1.5-6.6 [facility] Comment on above: Performed By: #### Casey ABRTON, BMP #### [facility] ([id number]) [address], [address] [place] [address] Basophils/100 WBC (Bld) 1.1 % Normal [facility] Comment on above: Performed By: #### Casey BARTON, BMP #### [facility] ([id number]) [address] [place] [address] Eosinophils (Bld) [#/Vol] 0.1 10*3/uL Normal 0.0-0.4 [facility] Comment on above: Performed By: #### Casey BARTON, BMP #### [facility] ([id number]) [address], [address] [place] [address] Eosinophils/100 WBC (Bld) 1.0 % Normal [facility] Comment on above: Performed By: #### Casey BARTON, BMP #### [facility] ([id number]) [address], [address] [place] [address] Erythrocyte distribution width (RBC) [Ratio] 13.0 % Normal 11.5-15.0 [facility] Comment on above: Performed By: #### Casey BARTON, BMP #### [facility] ([id number]) [address], [address] [place] [address] Hematocrit (Bld) [Volume fraction] 45.8 % Normal 39-49 [facility] Comment on above: Performed By: #### C BCA, BMP #### [facility] ([id number]) [address], [address] [place] [address] Hemoglobin (Bld) [Mass/Vol] 16.0 g/dL Normal 13.0-17.0 [facility] Comment on above: Performed By: #### C BCA, BMP #### [facility] ([id number]) [address], [address] [place] [address] Lymphocytes (Bld) [#/Vol] 1.2 10*3/uL Normal 1.0-3.5 [facility] Comment on above: Performed By: #### C BCA, BMP #### [facility] ([id number]) [address], [address] [place] [address] Lymphocytes/100 WBC (Bld) 19.6 % Normal [facility] Comment on above: Performed By: #### C BCA, BMP #### [facility] ([id number]) [address] [place] [address] MCH (RBC) [Entitic mass] 32.2 pg Normal 27-34 [facility] Comment on above: Performed By: #### C BCA, BMP #### [facility] ([id number]) [address] [place] [address] MCHC (RBC) [Mass/Vol] 35.0 g/dL Normal 32-36 [facility] Comment on above: Performed By: #### C BCA, BMP #### [facility] ([id number]) [address] [place] [address] MCV (RBC) [Entitic vol] 92 fL Normal 80-100 [facility] Comment on above: Performed By: #### C BCA, BMP #### [facility] ([id number]) [address] [place] [address] Monocytes (Bld) [#/Vol] 0.6 10*3/uL Normal 0-0.9 [facility] Comment on above: Performed By: #### C ORALIA, BMP #### [facility] ([id number]) [address] [place] [address] Monocytes/100 WBC (Bld) 9.5 % Normal [facility] Comment on above: Performed By: #### C ORALIA, BMP #### [facility] ([id number]) [address] [place] [address] Neutrophils/100 WBC (Bld) 68.8 % Normal [facility] Comment on above: Performed By: #### C ORALIA, BMP #### [facility] ([id number]) [address] [place] [address] Platelet mean volume (Bld) [Entitic vol] 8.0 fL Normal 7-12 [facility] Comment on above: Performed By: #### C ORALIA, BMP #### [facility] ([id number]) [address] [place] [address] Platelets (Bld) [#/Vol] 256 10*3/uL Normal 150-450 [facility] Comment on above: Performed By: #### Casey BARTON, BMP #### [facility] ([id number]) [address] [place] [address] RBC COUNT 4.98 X10E12/L Normal 4.10-5.70 [facility] Comment on above: Performed By: #### C ORALIA, BMP #### [facility] ([id number]) [address] [place] [address] WBC (Bld) [#/Vol] 6.4 10*3/uL Normal 4.0-11.0 [facility] Comment on above: Performed By: #### C BCA, BMP #### [facility] ([id number]) [address] [place] [address] CBC auto differentialon 10-19 Basophils (Bld) [#/Vol] 0.1 10*3/uL [facility] Basophils/100 WBC (Bld) 1.1 % [facility] Eosinophils (Bld) [#/Vol] 0.1 10*3/uL [facility] Eosinophils/100 WBC (Bld) 1.0 % [facility] Erythrocyte distribution width (RBC) [Ratio] 13.0 % 11.5 - 15.0 % [facility] Hematocrit (Bld) [Volume fraction] 45.8 % 39 - 49 % [facility] Hemoglobin (Bld) [Mass/Vol] 16.0 g/dL 13.0 - 17.0 g/dL [facility] Lymphocytes (Bld) [#/Vol] 1.2 10*3/uL [facility] Lymphocytes/100 WBC (Bld) 19.6 % [facility] MCH (RBC) [Entitic mass] 32.2 pg 27 - 34 pg [facility] MCHC (RBC) [Mass/Vol] 35.0 g/dL 32 - 36 g/dL [facility] MCV (RBC) [Entitic vol] 92 fL 80 - 100 fL [facility] Monocytes (Bld) [#/Vol] 0.6 10*3/uL [facility] Monocytes/100 WBC (Bld) 9.5 % [facility] Neutrophils (Bld) [#/Vol] 4.4 10*3/uL [facility] Neutrophils/100 WBC (Bld) 68.8 % [facility] Platelet mean volume (Bld) [Entitic vol] 8.0 fL 7 - 12 fL [facility] Platelets (Bld) [#/Vol] 256 10*3/uL [facility] RBC (Bld) [#/Vol] 4.98 10*6/uL [facility] WBC corrected for nucl RBC Auto (Bld) [#/Vol] 6.4 [facility] XR CHEST 2 VWSon 11-07-2023 XR CHEST 2 VWS XR CHEST 2 VWS XR CHEST 2 VWS INDICATION: Preop examination; Coronary artery disease, unspecified vessel or lesion type, unspecified whether angina present, unspecified whether [place] or transplanted heart; Hypertension, unspecified type; History of myocardial infarction. Coronary artery disease. Chest pain. FINDINGS: Cardiac silhouette is normal in size. Trachea midline. No focal pulmonary consolidation. No pleural effusion. No pneumothorax. IMPRESSION: 1. No acute findings. Finalized by Nghia Tolbert MD on 11/07/2023 9:20 PM Normal [facility] XR Chest PA and Lateralon XR CHEST 2 VWS INDICATION: Preop examination; Coronary artery disease, unspecified vessel or lesion type, unspecified whether angina present, unspecified whether [place] or transplanted heart; Hypertension, unspecified type; History of myocardial infarction. Coronary artery disease. Chest pain. FINDINGS: Cardiac silhouette is normal in size. Trachea midline. No focal pulmonary consolidation. No pleural effusion. No pneumothorax. IMPRESSION: 1. No acute findings. Finalized by Nghia Tolbert MD on 11/07/2023 9:20 PM Nghia Pollack MD - 11/07/2023 XR CHEST 2 VWS INDICATION: Preop examination; Coronary artery disease, unspecified vessel or lesion type, unspecified whether angina present, unspecified whether [place] or transplanted heart; Hypertension, unspecified type; History of myocardial infarction. Coronary artery disease. Chest pain. FINDINGS: Cardiac silhouette is normal in size. Trachea midline. No focal pulmonary consolidation. No pleural effusion. No pneumothorax. IMPRESSION: 1. No acute findings. Finalized by Nghia Tolbert MD on 11/07/2023 9:20 PM [facility] Radiology Study observation (narrative) [facility] XR Chest PA and LateralOrder ed By: Nghia Tolbert on 11-07-2023 [facility] Work Phone: Office Visiton 10-28-2023 Follow-up visit [id number] Sonia Stauffer 1945 M Date Provider Department Center 10/28/2023 [facility] Family History Problem Relation Age of Onset Heart attack Mother 60 Heart attack Maternal Grandmother Family Status - Relation Status Age at Mother Maternal Grandmother Level of Service:55903 [place] OFFICE/OUTPATIENT ESTABLISHED MOD MDM 30 MIN Normal [facility] CBC WITH AUTO DIFFERENTIALon 09-28-2023 Basophils (Bld) [#/Vol] 0.02 10*3/uL Normal 0.00-0.20 [facility] Comment on above: Performed By: #### L [id number] ####[facility] ([id number])[address] [place] [address] Basophils/100 WBC (Bld) 0.3 % Normal 0.0-1.0 [facility] Comment on above: Performed By: #### L [id number] ####[facility] ([id number])[address] [place] [address] Eosinophils (Bld) [#/Vol] 0.10 10*3/uL Normal 0.00-0.50 [facility] Comment on above: Performed By: #### L [id number] ####[facility] ([id number])[address] [place] [address] Eosinophils/100 WBC (Bld) 1.4 % Normal 0.0-6.0 [facility] Comment on above: Performed By: #### L [id number] ####[facility] ([id number])[address] [place] [address] Erythrocyte distribution width (RBC) [Ratio] 12.4 % Normal 11.5-15.0 [facility] Comment on above: Performed By: #### L [id number] ####[facility] ([id number])[address] [place] [address] ERYTHROCYTE MEAN CORPUSCULAR HEMOGLOBIN CONCENTRATION (G/DL) BY AUTOMATED 34.4 g/dL Normal 32.0-35.0 [facility] Comment on above: Performed By: #### L [id number] ####[facility] (BEAKER)[address] [place] [address] Hematocrit (Bld) [Volume fraction] 46.5 % Normal 39.0-55.0 [facility] Comment on above: Performed By: #### L [id number] ####[facility] (BEAKER)[address] [place] [address] Hemoglobin (Bld) [Mass/Vol] 16.0 g/dL Normal 13.0-17.0 [facility] Comment on above: Performed By: #### L [id number] ####[facility] (BEAKER)[address] [place] [address] Immature granulocytes (Bld) [#/Vol] 0.03 10*3/uL Normal 0.00-0.20 [facility] Comment on above: Performed By: #### L [id number] ####[facility] (BEAKER)[address] [place] [address] Immature granulocytes/100 WBC (Bld) 0.4 % Normal 0.0-1.0 [facility] Comment on above: Performed By: #### L [id number] ####[facility] (BEAKER)[address] [place] [address] Lymphocytes (Bld) [#/Vol] 1.43 10*3/uL Normal 1.20-4.00 [facility] Comment on above: Performed By: #### L [id number] ####[facility] (BEAKER)[address] [place] [address] Lymphocytes/100 WBC (Bld) 19.6 % Low 20.0-45.0 [facility] Comment on above: Performed By: #### L [id number] ####[facility] (BEAKER)[address] [place] [address] MCH (RBC) [Entitic mass] 31.7 pg Normal 27.0-33.0 [facility] Comment on above: Performed By: #### L [id number] ####[facility] (BEAKER)[address] [place] [address] MCV (RBC) [Entitic vol] 92.3 fL Normal 82.0-98.0 [facility] Comment on above: Performed By: #### L [id number] ####[email or web address] (BEAKER)[address] [place] [address] Monocytes (Bld) [#/Vol] 0.79 10*3/uL Normal 0.10-1.00 [facility] Comment on above: Performed By: #### L [id number] ####[facility] (BEAKER)[address] [place] [address] Monocytes/100 WBC (Bld) 10.8 % Normal 5.0-12.0 [facility] Comment on above: Performed By: #### L [id number] ####[facility] (BEAKER)[address] [place] [address] Neutrophils (Bld) [#/Vol] 4.92 10*3/uL Normal 1.60-7.60 [facility] Comment on above: Performed By: #### L [id number] ####[facility] (BEAKER)[address] [place] [address] Neutrophils/100 WBC (Bld) 67.5 % Normal 40.0-72.0 [facility] Comment on above: Performed By: #### L [id number] ####[facility] (BEAKER)[address] [place] [address] NRBC (PER 100 WBCS) BY AUTOMATED COUNT 0.0 % Normal 0 [facility] Comment on above: Performed By: #### L [id number] ####[facility] (BEAKER)[address] [place] [address] PLATELETS (10*3/UL) IN BLOOD AUTOMATED COUNT 278 10*3/uL Normal 150-400 [facility] Comment on above: Performed By: #### L [id number] ####[facility] (BEAKER)[address] [place] [address] RBC (Bld) [#/Vol] 5.04 10*6/uL Normal 4.20-5.[address] [facility] Comment on above: Performed By: #### L [id number] ####[facility] ([facility])[address] [place] [address] WBC (Bld) [#/Vol] 7.29 10*3/uL Normal 4.00-10.[address] [facility] Comment on above: Performed By: #### L [id number] ####[facility] ([facility])[address] [place] [address] COMPREHENSIVE METABOLIC PANE Jace 09-28-2023 Albumin [Mass/Vol] 4.4 g/dL Normal 3.5-5.7 [facility] Comment on above: Performed By: #### L [id number] ####[facility] ([facility])[address] [place] [address] ALP [Catalytic activity/Vol] 31 U/L Low 34-104 [facility] Comment on above: Performed By: #### L [id number] ####[facility] ([facility])[address] [place] [address] ALT [Catalytic activity/Vol] 19 U/L Normal 7-52 [facility] Comment on above: Performed By: #### L [id number] ####[facility] ([facility])[address] [place] [address] Anion gap [Moles/Vol] 11 mmol/L Normal 7-20 [facility] Comment on above: Performed By: #### L [id number] ####[facility] ([facility])[address] [place] [address] AST [Catalytic activity/Vol] 18 U/L Normal 13-39 [facility] Comment on above: Performed By: #### L [id number] ####[facility] ([facility])[address] [place] [address] Bilirubin [Mass/Vol] 2.1 mg/dL High 0.3-1.0 [facility] Comment on above: Performed By: #### L [id number] ####[facility] ([facility])[address] [place] [address] Calcium [Mass/Vol] 8.8 mg/dL Normal 8.6-10.3 [facility] Comment on above: Performed By: #### L [id number] ####[facility] (BEAKER)[address] [place] [address] Chloride [Moles/Vol] 102 mmol/L Normal 98-107 [facility] Comment on above: Performed By: #### L [id number] ####[facility] [place] [address] CO2 [Moles/Vol] 25 mmol/L Normal 21-31 [facility] Comment on above: Performed By: #### L [id number] ####[facility] ([facility])[address] [place] [address] Creatinine [Mass/Vol] 0.75 mg/dL Normal 0.70-1.30 [facility] Comment on above: Performed By: #### L [id number] ####[facility] [place] [address] GLOMERULAR FILTRATION RATE ML/MIN/1.73 SQ M.PREDICTED 92.9 mL/min/1.73m*2 Normal >60.0 [facility] Comment on above: Result Comment: The [facility]???s estimated glomerular filtration rate (eGFR) will no [...] of individuals. Performed By: #### L [id number] ####[facility] ([facility] [place] [address] Glucose [Mass/Vol] 85 mg/dL Normal 70-100 [facility] Comment on above: Performed By: #### L [id number] ####[facility] (BEAKER)[address] [place] [address] Potassium [Moles/Vol] 4.0 mmol/L Normal 3.5-5.1 [facility] Comment on above: Performed By: #### L [id number] ####[facility] (BEAKER)[address] [place] [address] Protein [Mass/Vol] 6.6 g/dL Normal 6.0-8.3 [facility] Comment on above: Performed By: #### L [id number] ####[facility] (BEAKER)[address] [place] [address] Sodium [Moles/Vol] 134 mmol/L Low 136-145 [facility] Comment on above: Performed By: #### L [id number] ####[facility] (BEAKER)[address] [place] [address] Urea nitrogen [Mass/Vol] 13 mg/dL Normal 7-25 [facility] Comment on above: Performed By: #### L [id number] ####[facility] (BEAKER)[address] [place] [address] UREA NITROGEN/CREATININE (MASS RATIO) IN SER/PLAS 17.3 Normal [facility] Comment on above: Performed By: #### L [id number] ####[facility] (BEAKER)[address] [place] [address] DSon 09-28-2023 DS Admission Admitted 09/27/2023 for [...] leg: Ed (more content not included)... Normal [facility] HEMOGLOBIN A1Con 09-28-2023 Glucose [Mass/Vol] 88 mg/dL Normal [facility] Comment on above: Performed By: #### L [id number] ####[facility] (BEAKER)[address] [place] [address] HbA1c (Bld) [Mass fraction] 4.7 % Normal 4.0-6.0 [facility] Comment on above: Performed By: #### L [id number] ####[facility] (BEAKER)[address] [place] [address] 30on 09-27-2023 30 Problem: Pain - Adul [...] and behaviors that affect risk of falls [place] fall precautions as indicated by assessment Educate [...] for the shift include STABLE VS Normal [facility] Adriana 09-27-2023 MARY - Attestation signed by Moraima Espitia MD at 09/27/2023 1:33 PM Moraima Espitia MD, MPH, FACC, [facility], 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 Additional Equipment Requests Normal [facility] HPon 09-27-2023 - Attestation signed by Moraima Espitia MD at 09/27/2023 1:33 PM Moraima Espitia MD, MPH, [facility], [facility], [facility] Interventional Cardiology Pager Email: [email or web address] History Of Present Illness Sonia Stauffer is a 78 y.o. male presenting [...] assessed by instantaneous wave-free ratio (iFR). 4. 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 4. Outpatient phase to cardiac rehabilitation. 5. Follow up with me in the [facility] in the next 2 to 4 weeks. 6. Follow up with Dr. Franco as scheduled. PROCEDURES: Ultrasound-guided access to the right internal jugular vein, right heart catheterization, ultrasound-guided access to the left radial artery, bilateral selective coronary angiography, percutaneous balloon a (more content not included)... [facility] NURSNOTEon 09-27-2023 NURSNOTE Report given to Puja RN from Manuela MADRID Any medications or safety alerts were reviewed. Any pending diagnostics and notifications were also reviewed, as well as any safety concerns or issues, abnormal labs, abnormal imagining, and abnormal assessment findings. Questions were answered. Normal [facility] Letter (Out)on 09-17-2023 Letter (Out) [id number] Sonia Stauffer 1945 M [facility] 09/17/2023 None-None [facility] [[email or web address]] AUTH CT Medical C No family history on file Normal [facility] 36on 09-13-[address] Franco's office called and wanted to know what the plan was for the patients abnormal stress test. Normal [facility] Orders Onlyon 09-13-2023 Orders Only [id number] Sonia Stauffer 1945 M [facility] [place] 09/13/2023 GORDON GRANDE [facility] No family history on file [facility] CBC AUTO DIFFon 07-04-2022 BASO # 0.1 103/ul Normal 0.0-0.1 [facility] Comment on above: Performed By: #### C BC #### [facility] [address] [place] [address] Dr. Cami Bishop Basophils/100 WBC (Bld) 0.9 % Normal 0.2-2.0 [facility] Comment on above: Performed By: #### C BC #### [facility] [address] [place] [address] Dr. Cami Bishop EO # 0.1 103/ul Normal 0.0-0.7 [facility] Comment on above: Performed By: #### C BC #### [facility] [address] [place] [address] Dr. Cami Bishop Eosinophils/100 WBC (Bld) 2.0 % Normal 0.9-7.0 [facility] Comment on above: Performed By: #### C BC #### [facility] [address] [place] [address] Dr. Cami Bishop Erythrocyte distribution width (RBC) [Ratio] 12.2 % Normal 11.0-15.0 [facility] Comment on above: Performed By: #### C BC #### [facility] [address] [place] [address] Dr. Cami Bishop Hematocrit (Bld) [Volume fraction] 45.3 % Normal 42.0-54.0 [facility] Comment on above: Performed By: #### C BC #### [facility] [address] [place] [address] Dr. Cami Bishop Hemoglobin (Bld) [Mass/Vol] 16.0 g/dL Normal 14.0-18.0 [facility] Comment on above: Performed By: #### C BC #### [facility] [address] [place] [address] Dr. Cami Bishop IG # 0.04 10e3/ul Critically high 0.00-0.03 [facility] Comment on above: Performed By: #### C BC #### [facility] [address] [place] [address] Dr. Cami Bishop IG % 0.7 % Critically high 0.0-0.5 The [facility] Comment on above: Performed By: #### C BC #### [facility] [address] [place] [address] Dr. Cami Bishop LYMPH # 1.6 103/ul Normal 1.2-3.8 [facility] Comment on above: Performed By: #### C BC #### [facility] [address] [place] [address] Dr. Cami Bishop Lymphocytes/100 WBC (Bld) 28.6 % Normal 20.5-60.0 [facility] Comment on above: Performed By: #### C BC #### [facility] [address] [place] [address] Dr. Cami Bishop MANUAL DIFF REQ NO Normal The [facility] Comment on above: Performed By: #### C BC #### [facility] [address] [place] [address] Dr. Cami Bishop MCH (RBC) [Entitic mass] 31.2 pg Normal 25.9-34.0 [facility] Comment on above: Performed By: #### C BC #### [facility] [address] [place] [address] Dr. Cami Bishop MCHC (RBC) [Mass/Vol] 35.3 g/dL Critically high 29.9-35.2 [facility] Comment on above: Performed By: #### C BC #### [facility] [address] [place] [address] Dr. Cami Bishop MCV (RBC) [Entitic vol] 88.3 fL Normal 80.0-94.0 [facility] Comment on above: Performed By: #### C BC #### [facility] [address] [place] [address] Dr. Cami Bishop MONO # 0.6 103/ul Normal 0.3-0.8 [facility] Comment on above: Performed By: #### C BC #### [facility] [address] [place] [address] Dr. Cami Bishop Monocytes/100 WBC (Bld) 11.2 % Normal 1.7-12.0 [facility] Comment on above: Performed By: #### C BC #### [facility] [address] [place] [address] Dr. Cami Bishop NEUT # 3.2 103/ul Normal 1.4-6.5 [facility] Comment on above: Performed By: #### C BC #### [facility] [address] [place] [address] Dr. Cami Bishop Neutrophils/100 WBC (Bld) 56.6 % Normal 43.0-75.0 [facility] Comment on above: Performed By: #### C BC #### [facility] [address] [place] [address] Dr. Cami Bishop Platelet mean volume (Bld) [Entitic vol] 9.6 fL Normal 9.5-13.5 [facility] Comment on above: Performed By: #### C BC #### [facility] [address] [place] [address] Dr. Cami Bishop PLT 229 103/ul Normal 150-450 [facility] Comment on above: Performed By: #### C BC #### [facility] [address] [place] [address] Dr. Cami Bishop RBC 5.13 106/ul Normal 4.70-6.10 [facility] Comment on above: Performed By: #### C BC #### [facility] [address] [place] [address] Dr. Cami Bishop WBC 5.6 103/ul Normal 4.0-11.0 [facility] Comment on above: Performed By: #### C BC #### [facility] [address] [place] [address] Dr. Cami Bishop FREE T3on 07-04-2022 FREE T3 2.50 pg/mlL Normal 2.18-3.98 [facility] Comment on above: Performed By: #### T SH, LIPID, FT3, T4, CMP #### [facility] [address] [place] [address] Dr. Cami Bishop GLYCOHEMOGLOBIN A1Con 2022 ADA RECOMMENDATION SEE BELOW Normal [facility] Comment on above: Result Comment: ADA RECOMMENDED LIMIT 4.0 - 6.0 ADA THERAPEUTIC TARGET < 7.0 ACTION SUGGESTED > 7.0 Performed By: #### A 1C #### [facility] [address] [place] [address] Dr. Cami Bishop Glucose [Mass/Vol] 105 mg/dL Normal [facility] Comment on above: Performed By: #### A 1C #### [facility] [address] [place] [address] Dr. Cami Bishop HbA1c (Bld) [Mass fraction] 5.3 % Normal 4.5-6.2 [facility] Comment on above: Performed By: #### A 1C #### [facility] [address] [place] [address] Dr. Cami Bishop LIPID PROFILEon 07-04-2022 CHOL-HDL RATIO NORM SEE BELOW Normal [facility] Comment on above: Result Comment: 3.3 - 4.4 LOW RISK 4.4 - 7.1 AVERAGE RISK 7.1 - 11.0 MODERATE RISK >11.0 HIGH RISK Performed By: #### T SH, LIPID, FT3, T4, CMP #### [facility] [address] [place] [address] Dr. Cami Bishop Cholesterol [Mass/Vol] 123 mg/dL Normal <=200 [facility] Comment on above: Performed By: #### T SH, LIPID, FT3, T4, CMP #### [facility] [address] [place] [address] Dr. Cami Bishop Cholesterol in HDL [Mass/Vol] 39 mg/dL Critically low 40-60 [facility] Comment on above: Performed By: #### T SH, LIPID, FT3, T4, CMP #### [facility] [address] [place] [address] Dr. Cami Bishop Cholesterol in LDL [Mass/Vol] 55.6 mg/dL Normal [facility] Comment on above: Performed By: #### T SH, LIPID, FT3, T4, CMP #### [facility] [address] [place] [address] Dr. Cami Bishop Cholesterol.total/C holesterol in HDL [Mass ratio] 3.2 {ratio} Normal [facility] Comment on above: Performed By: #### T SH, LIPID, FT3, T4, CMP #### [facility] [address] [place] [address] Dr. Cami Bishop HDL NORMAL > or = 60 mg/dl - LO W CARDIOVASCULAR RISK <40 mg/dl - HIGH CARDIOVASCULAR RISK Normal [facility] Comment on above: Performed By: #### T SH, LIPID, FT3, T4, CMP #### [facility] [address] [place] [address] Dr. Cami Bishop LDL CALC NORMAL SEE BELOW Normal The [facility] Comment on above: Result Comment: <100 mg/dl OPTIMAL 100 - 129 mg/dl NEAR OR ABOVE OPTIMAL 130 - 159 mg/dl BORDERLINE HIGH 160 - 189 mg/dl HIGH >190 mg/dl VERY HIGH Performed By: #### T SH, LIPID, FT3, T4, CMP #### [facility] [address] [place] [address] Dr. Cami Bishop Triglyceride [Mass/Vol] 142 mg/dL Normal <=150 [facility] Comment on above: Performed By: #### T SH, LIPID, FT3, T4, CMP #### [facility] [address] [address] [address] Cami Bishop VLDL CALC 28.4 mg/dL Normal [facility] Comment on above: Performed By: #### T SH, LIPID, FT3, T4, CMP #### [facility] [address] [address] [address] Cami Bishop PROF 14(COMP METB)on 023 Albumin [Mass/Vol] 3.8 g/dL Normal 3.4-5.0 [facility] Comment on above: Performed By: #### T SH, LIPID, FT3, T4, CMP #### [facility] [address] [place] [address] Dr. Cami Bishop Albumin/Globulin [Mass ratio] 1.3 {ratio} Normal [facility] Comment on above: Performed By: #### T SH, LIPID, FT3, T4, CMP #### [facility] [address] [address] [address] Cami Bishop ALP [Catalytic activity/Vol] 44 U/L Critically low 46-116 [facility] Comment on above: Performed By: #### T SH, LIPID, FT3, T4, CMP #### [facility] [address] [address] [address] Cami Bishop ALT [Catalytic activity/Vol] 36 U/L Normal 16-63 [facility] Comment on above: Performed By: #### T SH, LIPID, FT3, T4, CMP #### [facility] [address] [address] [address] Cami Bishop Anion gap [Moles/Vol] 9.3 mmol/L Normal [facility] Comment on above: Performed By: #### T SH, LIPID, FT3, T4, CMP #### [facility] [address] [place] [address] [address] Cami Bishop AST [Catalytic activity/Vol] 22 U/L Normal 15-37 [facility] Comment on above: Performed By: #### T SH, LIPID, FT3, T4, CMP #### [facility] [address] [place] [address] Dr. Cami Bishop Bilirubin [Mass/Vol] 1.4 mg/dL Critically high 0.2-1.0 [facility] Comment on above: Performed By: #### T SH, LIPID, FT3, T4, CMP #### [facility] [address] [place] [address] Dr. Cami Bishop Calcium [Mass/Vol] 8.9 mg/dL Normal 8.5-10.1 [facility] Comment on above: Performed By: #### T SH, LIPID, FT3, T4, CMP #### [facility] [address] [place] [address] Dr. Cami Bishop Chloride [Moles/Vol] 98 mmol/L Normal 98-107 [facility] Comment on above: Performed By: #### T SH, LIPID, FT3, T4, CMP #### [facility] [address] [place] [address] Dr. Cami Bishop CO2 [Moles/Vol] 32.7 mmol/L Critically high 21.0-32.0 [facility] Comment on above: Performed By: #### T SH, LIPID, FT3, T4, CMP #### [facility] [address] [place] [address] Dr. Cami Bishop Creatinine [Mass/Vol] 0.95 mg/dL Normal 0.70-1.30 [facility] Comment on above: Performed By: #### T SH, LIPID, FT3, T4, CMP #### [facility] [address] [place] [address] Dr. Cami Bishop EGFR-AF [place] >60 Normal >=60 [facility] Comment on above: Performed By: #### T SH, LIPID, FT3, T4, CMP #### [facility] [address] [place] [address] Dr. Cami Bishop EGFR-NON AF [place] >60 Normal >=60 [facility] Comment on above: Performed By: #### T SH, LIPID, FT3, T4, CMP #### [facility] [address] [place] [address] Dr. Cami Bishop Globulin (S) [Mass/Vol] 2.9 g/dL Normal [facility] Comment on above: Performed By: #### T SH, LIPID, FT3, T4, CMP #### [facility] [address] [place] [address] Dr. Cami Bishop Glucose [Mass/Vol] 102 mg/dL Normal 74-106 [facility] Comment on above: Performed By: #### T SH, LIPID, FT3, T4, CMP #### [facility] [address] [place] [address] Dr. Cami Bishop Potassium [Moles/Vol] 4.0 mmol/L Normal 3.5-5.1 [facility] Comment on above: Performed By: #### T SH, LIPID, FT3, T4, CMP #### [facility] [address] [place] [address] Dr. Cami Bishop Protein [Mass/Vol] 6.7 g/dL Normal 6.4-8.2 [facility] Comment on above: Performed By: #### T SH, LIPID, FT3, T4, CMP #### [facility] [address] [place] [address] Dr. Cami Bishop Sodium [Moles/Vol] 136 mmol/L Normal 136-145 [facility] Comment on above: Performed By: #### T SH, LIPID, FT3, T4, CMP #### [facility] [address] [place] [address] Dr. Cami Bishop Urea nitrogen [Mass/Vol] 14.0 mg/dL Normal 7.0-18.0 [facility] Comment on above: Performed By: #### T SH, LIPID, FT3, T4, CMP #### [facility] [address] [place] [address] Dr. Cami Bishop Urea nitrogen/Creatinine [Mass ratio] 14.7 mg/mg Normal [facility] Comment on above: Performed By: #### T SH, LIPID, FT3, T4, CMP #### [facility] [address] [place] [address] Dr. Cami Bishop T4on 07-04-2022 T4 [Mass/Vol] 6.80 ug/dL Normal 4.50-12.10 [facility] Comment on above: Performed By: #### T SH, LIPID, FT3, T4, CMP #### [facility] [address] [place] [address] Dr. Cami Bishop TSHon 07-04-2022 TSH 2.193 uIU/mL Normal 0.358-3.740 [facility] Comment on above: Performed By: #### T SH, LIPID, FT3, T4, CMP #### [facility] [address] [place] [address] Dr. Cami Bihsop VITAMIN D 25 OHon 07-04-2022 VIT D 25-OH 35.1 ng/mL Normal [facility] Comment on above: Performed By: #### V ROSELINE, PSASC #### [facility] [address] [place] [address] Dr. Cami Bishop VIT D RANGES SEE BELOW Normal [facility] Comment on above: Result Comment: <20 ng/mL Vit D deficient 20 - <30 ng/mL Vit D insufficient 30 - 100 ng/mL Vit D sufficient >100 ng/mL Potential Toxicity Performed By: #### V ROSELINE, PSASC #### [facility] [address] [place] [address] Dr. Cami Bishop ER URINE PROFILEon 2 Bilirubin Ql (U) Negative Normal NEGATIVE [facility] Comment on above: Performed By: #### T SH, LIPID, FT3, T4, CMP #### [facility] [address] [place] [address] Dr. Cami Bishop Clarity (U) CLEAR Normal CLEAR [facility] Comment on above: Performed By: #### T SH, LIPID, FT3, T4, CMP #### [facility] [address] [place] [address] Dr. Cami Bishop Color (U) YELLOW Normal YELLOW [facility] Comment on above: Performed By: #### T SH, LIPID, FT3, T4, CMP #### [facility] [address] [address] [address] Cami REID A micrscopic examination will be performed if indicated. Normal [facility] Comment on above: Performed By: #### T SH, LIPID, FT3, T4, CMP #### [facility] [address] [address] [address] Cami Bishop Glucose Ql (U) Negative Normal NEGATIVE [facility] Comment on above: Performed By: #### T SH, LIPID, FT3, T4, CMP #### [facility] [address] [place] [address] [address] Cami Bishop Hemoglobin Ql (U) Negative Normal NEGATIVE [facility] Comment on above: Performed By: #### T SH, LIPID, FT3, T4, CMP #### [facility] [address] [place] [address] Dr. Cami Bishop Ketones Ql (U) Negative Normal NEGATIVE [facility] Comment on above: Performed By: #### T SH, LIPID, FT3, T4, CMP #### [facility] [address] [place] [address] [address] Cami Bishop LEUKOCYTES Negative Normal NEGATIVE [facility] Comment on above: Performed By: #### T SH, LIPID, FT3, T4, CMP #### [facility] [address] [address] [address] Cami Bishop Nitrite Ql (U) Negative Normal NEGATIVE [facility] Comment on above: Performed By: #### T SH, LIPID, FT3, T4, CMP #### [facility] [address] [address] [address] Cami Bishop pH (U) 6.0 [pH] Normal 5-9 [facility] Comment on above: Performed By: #### T SH, LIPID, FT3, T4, CMP #### [facility] [address] [address] [address] Cami Bishop SPEC GRAVITY 1.020 Normal 1.005-<=1.02 5 [facility] Comment on above: Performed By: #### T SH, LIPID, FT3, T4, CMP #### [facility] [address] [place] [address] [address] Cami Bishop UA PROTEIN Negative Normal NEGATIVE/ TRACE [facility] Comment on above: Performed By: #### T SH, LIPID, FT3, T4, CMP #### [facility] [address] [address] [address] Cami Bishop UR MICRO IND NOT INDICATED Normal The [facility] Comment on above: Performed By: #### T SH, LIPID, FT3, T4, CMP #### [facility] [address] [address] [address] Cami Bishop Urobilinogen Qn (U) 1.0 {Dia'U}/dL Normal 0.2 - 1. 0 [facility] Comment on above: Performed By: #### T SH, LIPID, FT3, T4, CMP #### [facility] [address] [address] [address] Cami Bishop XR LSPINE 2_3 VIEWSon 2021 XR LSPINE 2_3 VIEWS EXAMINATION: XR LSPINE 2_3 VIEWS HISTORY: Pain ; acute lumbar [...] by: DAMIR MACHADO Date: 2022-01-11 13:56 Normal [facility] Consent for COVID Vaccineon 08-06-2020 SARS-CoV-2 (COVID-19) RNA LIN+probe Ql (Unsp spec) [id number]# 1.00CD:127 Normal [facility] Consent for COVID Vaccineon 07-01-2020 SARS-CoV-2 (COVID-19) RNA LIN+probe Ql (Unsp spec) [id number]# 1.00CD:[address] [facility] Consent for Treatmenton 06-20 Consent for Treatment [id number]# 1.00CD:[address] [facility] Coding Summary.on 06-29-2020 Coding Summary. CODING DATE: 06/29/2020 FINAL [facility] STATUS: PAYOR: Medicare APC DESCRIPTION 1492 [...] Manuel CphT Date Saved: 06/29/2020 11:[address] [facility] Ambulatory Clinical Summaryo n 01-26-2020 Ambulatory Clinical Summary {[id number]}CD:[id number] [facility] Ambulatory Clinical Summaryo n 12-16-2019 Ambulatory Clinical Summary {[id number]}CD:[id number] [facility] General Surgery Office/Clini c Noteon 12-16-2019 General Surgery Office/Clinic Note Chief Complaint post operative follow up HPI Staff 14 day post operative follow up post excisional biopsy from left occipital scalp completed at [facility] on 12/03. Denies pain; no use [...] History of gout Hyperlipemia Lipoma of scalp IA (myocardial infarction) Obstructive sleep apnea Pilar cyst [...] 13:32 EDT Operative Reporton 0 Operative Report [id number]#1 .00CD:127 Normal [facility] Pathology Noteon 12-08-2019 Pathology Note [id number]#1 .00CD:[address] [facility] Facesheeton 11-13-2019 Facesheet [id number]#1 .00CD:[address] [facility] Physician Referralon 020 Physician Referral [id number]#1. 00CD:[address] [facility] Cardiovascular Lab Reporton 03-06-2018 Cardiovascular Lab Report [facility] MR #: [id number] of Physician: Sheryl Stratton M.D.Division of Service Date: 03/05/2018Cardiology Birthdate: [birth year]Adult Cardiovascular Room #: 3CD [id number] mick [address] [place], [place] [address]Nihbx Fax Cardiovascular Laboratory ReportFINAL IMPRESSIONS:1. Severe stenosis of the left anterior descending coronary artery, successfully treated by balloon angioplasty and Synergy drug-eluting stent placement.2. Severe stenosis of the posterior descending artery, successfully treated by balloon angioplasty and Synergy drug-eluting stent placement.3. Moderate angiographic, non-hemodynamically significant stenosis of the right coronary artery as assessed by instantaneous wave-free ratio (iFR).4. Oyvo-uk-mimhtjax in-stent restenosis of the mid left anterior descending and circumflex coronary arteries.5. Severe disease of a small caliber first obtuse marginal branch.6. Mildly elevated right-sided heart pressures and wedge pressures.7. Normal cardiac output/cardiac index.RECOMMENDATIONS /PLAN:1. Aspirin 81 mg lifelong.2. Plavix 75 mg daily for a minimum of 6 months.3. Optimization of medical management; a beta-yazmin, high-intensity statin and an angiotensin-convertin g enzyme inhibitor are indicated.4. Outpatient phase to cardiac rehabilitation.5. Follow up with me in the [facility] in the next 2 to 4 weeks.6. Follow up with Dr. Franco as scheduled.PROCEDURES: Ultrasound-guided access to the right internal jugular vein,right heart catheterization, ultrasound-guided access to the left radialartery, bilateral selective coronary angiography, percutaneous balloonangioplasty, and Synergy drug-eluting stent placement in the left anteriordescending coronary artery, percutaneous balloon angioplasty, anddrug-eluting stent placement in the posterior descending branch of theright coronary artery, instantaneous fractional ratio of the right coronaryartery.METHOD S: After risks, benefits, and alternatives were explained, [...] of pressurebandage per protocol to achieve optimal hemostasis.Subsequent ly, coronary angiography was performed via a left radialapproach; local infiltration anesthesia was achieved over the left radialartery. A micropuncture kit was used to access the left radial arteryunder ultrasound guidance. A 6[place] Glidesheath was inserted withoutdifficulty. Coronary angiography was performed using JR4 and WW1dihvmlghe. After reviewing the images, it was elected to proceed with aninterventional procedure.A 6[place]izen [place] XB3.5 guide catheter was advanced over J-wire and coaxiallyengaged into the left main coronary ostium. The [place] pressure wire wasadvanced through the catheter with [...] wire trauma. The XB guide catheter wasremoved.A 6[place]izen [place] JR4 guide catheter was advanced over the J-wire and coaxiallyengaged into the right coronary ostium. A new [place] pressure wire wasadvanced through the catheter with pressures normalized just after exiting.The wire was used to traverse the suspect stenoses. An instantaneouswave-janie e ratio (iFR) was performed as well as [...] be transferred to the holding area in stablecondition.FINDI NGS:Hemodynamics:RA 13.RV 36/9, 15.PA 36/13 (25).PCWP 15.TPG 10.AO [...] restenosis. Distal to a small adjacent diagonal, uarhva-eu-chwknw left anterior descending shows a short segment 80% stenosis.This was reduced to 0% by balloon angioplasty and placement of a 2.5 x16-mm Synergy stent with postdilation as described above. Final imagesshowed ECLSO-3 flow with no dissection, thrombus, or distal [...] flow with no dissection, thrombus, or distal wiretrauma.INDICATION S: Unstable angina.Electronically Signed by:Moraima Espitia M.D. 03/12/2018 03:07 P Saul Espitia M.D.Date Dict: 03/05/2018/01:31 P/Moraima Espitia M.D.Date Trans: 03/06/2018 12:18 P/mmoDN_JN:[id number]: Romel Franco M.D. [id number] [facility] [address] [facility] Vital Signs Date Time Vital Sign Value Performing Clinician Luis brumfield 12-06-2023 16:54-0400 Body temperature 98.6 [degF] Adkota Manny [employer] Work Phone: [employer] 12-06-2023 16:54-0400 Diastolic blood pressure 74 mm[Hg] Dakota MetaCarta DO Work Phone: [employer] 12-06-2023 16:54-0400 Heart rate 85 /min Dakota Manny DO Work Phone: [employer] 12-06-2023 16:54-0400 Respiratory rate 16 /min Dakota Manny DO Work Phone: [employer] 12-06-2023 16:54-0400 SaO2% (BldA) [Mass fraction] 97 % Dakota Bryant DO Work Phone: [employer] 12-06-2023 16:54-0400 Systolic blood pressure 148 mm[Hg] Dakota Bryant DO Work Phone: [employer] 12-04-2023 09:05-0400 Body height 179.1 cm Dakota Bryant DO Work Phone: [facility] 12-04-2023 09:05-0400 Body mass index (BMI) [Ratio] 39.89 kg/m2 Dakota Bryant DO Work Phone: [employer] 12-04-2023 09:05-0400 Body weight 127.91 kg Dakota Bryant DO Work Phone: [facility] 11-07-2023 15:08-0400 Body height 179.1 cm Pm 2 [employer] 11-07-2023 15:08-0400 Body mass index (BMI) [Ratio] 39.89 kg/m2 Pm 2 [employer] 11-07-2023 15:08-0400 Body weight 127.91 kg [facility] 2 [facility] Encounters Encounter Date Encounter Type Care Provider Facility Start: 05-27-2024 End: 05-27-2024 Office outpatient visit 10 minutes Mely Paige COMPUTER ASSISTANT Work Phone: [facility] Comment on above: Status post right kn ee replacement; Primary osteoarthritis of right knee Start: 05-27-2024 End: 05-27-2024 ambulatory MELY PAIGE Not Available Start: 05-27-2024 End: 05-27-2024 Bamboo flowsheet Mely Paige COMPUTER ASSISTANT Work Phone: [facility] Start: 05-27-2024 End: 05-27-2024 Bamboo flowsheet Mely Paige COMPUTER ASSISTANT Work Phone: [facility] Start: 05-06-2024 End: 05-06-2024 ambulatory [facility] Start: 02-25-2024 End: 02-25-2024 Bamboo flowsheet Dakota Bryant DO Work Phone: [facility] Start: 02-25-2024 End: 02-25-2024 Bamboo flowsheet Dakota Bryant DO Work Phone: [facility] Start: 02-25-2024 End: 02-25-2024 Postop follow up visit related to original px Dakota Bryant DO Work Phone: [facility] Comment on above: Status post right [...] knee joint, right Start: 02-13-2024 End: 02-13-2024 Bamboo flowsheet Jona Max Meadows PT [facility] Start: 02-13-2024 End: 02-13-2024 Bamboo flowsheet Jona Asher PT [facility] Start: 02-13-2024 End: 02-13-2024 ambulatory Jona Asher PT [facility] Comment on above: Postoperative pain o f right knee (Primary Dx); Presence of artificial knee joint, right Start: 02-11-2024 End: 02-11-2024 Bamboo flowsheet Jona Asher PT [facility] Start: 02-11-2024 End: 02-11-2024 Bamboo flowsheet Jona Max [place]ows PT [facility] Start: 02-11-2024 End: 02-11-2024 ambulatory Jona Asher PT [facility] Comment on above: Postoperative pain o f right knee (Primary Dx); Presence of artificial knee joint, right Start: 02-04-2024 End: 02-04-2024 Bamboo flowsheet Adriana Maureen [employer] [facility] Start: 02-04-2024 End: 02-04-2024 Bamboo flowsheet Adriana Maureen [employer] [facility] Start: 02-04-2024 End: 02-04-2024 ambulatory Adriana Maureen [employer] [facility] Comment on above: Postoperative pain o f right knee (Primary Dx); Presence of artificial knee joint, right Start: 01-30-2024 End: 01-30-2024 Bamboo flowsheet Jona Asher PT [facility] Start: 01-30-2024 End: 01-30-2024 Bamboo flowsheet Jona Max Meadows PT [facility] Start: 01-30-2024 End: 01-30-2024 ambulatory Jona Max Meadows PT [facility] Comment on above: Postoperative pain o f right knee (Primary Dx); Presence of artificial knee joint, right Start: 01-28-2024 End: 01-28-2024 Bamboo flowsheet Adriana Maureen [employer] [facility] Start: 01-28-2024 End: 01-28-2024 Bamboo flowsheet Adriana Maureen [employer] [facility] Start: 01-28-2024 End: 01-28-2024 ambulatory Adriana Maureen [employer] [facility] Comment on above: Postoperative pain o f right knee (Primary Dx); Presence of artificial knee joint, right Start: 01-23-2024 End: 01-23-2024 Bamboo flowsheet Jona Asher PT [facility] Start: 01-23-2024 End: 01-23-2024 Bamboo flowsheet Jona Max Meadows PT [facility] Start: 01-23-2024 End: 01-23-2024 ambulatory Jona Max Meadows PT [facility] Comment on above: Postoperative pain o f right knee (Primary Dx); Presence of artificial knee joint, right Start: 01-21-2024 End: 01-21-2024 Bamboo flowsheet Adriana Maureen [employer] [facility] Start: 01-21-2024 End: 01-21-2024 Bamboo flowsheet Adriana Maureen [employer] [facility] Start: 01-21-2024 End: 01-21-2024 ambulatory Adriana Maureen [employer] [facility] Comment on above: Postoperative pain o f right knee (Primary Dx); Presence of artificial knee joint, right Start: 01-16-2024 End: 01-16-2024 Bamboo flowsheet Jona Max Meadows PT [facility] Start: 01-16-2024 End: 01-16-2024 Bamboo flowsheet Jona Max Meadows PT [facility] Start: 01-16-2024 End: 01-16-2024 ambulatory Jona Max Meadows PT [facility] Comment on above: Postoperative pain o f right knee (Primary Dx); Presence of artificial knee joint, right Start: 01-14-2024 End: 01-14-2024 Bamboo flowsheet Dakota Bryant DO Work Phone: [facility] Start: 01-14-2024 End: 01-14-2024 Bamboo flowsheet Dakota Yepezdleston DO Work Phone: [facility] Start: 01-14-2024 End: 01-14-2024 ambulatory Adriana Maureen [employer] [facility] Comment on above: Postoperative pain o f right knee (Primary Dx); Presence of artificial knee joint, right Start: 01-14-2024 End: 01-14-2024 Postop follow up visit related to original px Dakota Bryant DO Work Phone: [facility] Comment on above: Primary osteoarthrit is of right knee; Status post right knee replacement Start: 01-09-2024 End: 01-09-2024 ambulatory Jona Max Meadows PT [facility] Comment on above: Postoperative pain o f right knee (Primary Dx); Presence of artificial knee joint, right Start: 01-09-2024 End: 01-09-2024 Bamboo flowsheet Jona Asher PT [facility] Start: 01-09-2024 End: 01-09-2024 Bamboo flowsheet Jona Asher PT [facility] Start: 01-07-2024 End: 01-07-2024 ambulatory Adriana Maureen [employer] [facility] Comment on above: Postoperative pain o f right knee (Primary Dx); Presence of artificial knee joint, right Start: 01-07-2024 End: 01-07-2024 Bamboo flowsheet Adriana Maureen [employer] [facility] Start: 01-07-2024 End: 01-07-2024 Bamboo flowsheet Adriana Maureen [employer] [facility] Start: 01-02-2024 End: 01-02-2024 ambulatory JONA MORRISSLOW Not Available Start: 12-31-2023 End: 12-31-2023 ambulatory JONA MORRISSLOW Not Available Start: 12-17-2023 End: 12-17-2023 ambulatory DAKOTA BRYANT Not Available Start: 12-09-2023 End: 12-09-2023 ambulatory NEERAJJANAEYVES HUITRON Not Available Start: 12-04-2023 End: 12-06-2023 ambulatory [facility] Start: 12-04-2023 End: 12-06-2023 Subsequent hospital visit by physician Dakota Bryant DO Work Phone: [facility] Comment on above: Status post total kn ee replacement, right (Primary Dx) Start: 11-27-2023 End: 11-27-2023 ambulatory SHEREE DIAZ Not Available Start: 11-26-2023 End: 11-26-2023 ambulatory [facility] Start: 11-07-2023 End: 11-07-2023 Patient encounter procedure [facility] Pre-Admission Testing 2 [facility] Comment on above: Preop examination (P rimary Dx); Coronary artery disease, unspecified vessel or lesion type, unspecified whether angina present, unspecified whether [place] or transplanted heart; Hypertension, unspecified type; History of myocardial infarction Start: 11-07-2023 End: 11-07-2023 Preprocedural examination done Pm 2 [facility] Start: 11-07-2023 End: 11-07-2023 ambulatory [facility] Start: 11-07-2023 Encounter for other preprocedural examination [facility] Start: 11-07-2023 End: 11-07-2023 ambulatory DAKOTA BRYANT Not Available Start: 11-07-2023 End: 11-08-2023 ambulatory DAKOTA BRYANT [facility] Start: 10-30-2023 End: 10-30-2023 ambulatory SHELDON HANDLEY Not Available Start: 10-28-2023 End: 10-28-2023 ambulatory [facility] Start: 10-08-2023 End: 10-08-2023 ambulatory DAKOTA BRYANT Not Available Start: 09-27-2023 Evaluation and management of inpatient [facility] Start: 09-27-2023 ambulatory [facility] Start: 09-27-2023 End: 09-28-2023 Evaluation and management of inpatient [facility] Start: 07-09-2023 End: 07-09-2023 ambulatory DAKOTA BRYANT Not Available Start: 04-22-2023 End: 04-23-2023 ambulatory Navdeep Porter MD Facility: [facility] Start: 07-04-2022 End: 07-05-[address] ROMEL FRANCO . Facility: Start: 01-11-2022 End: 01-11-[address] ROMEL FRANCO . Facility: Start: 04-07-2018 End: 04-08-2018 Patient encounter procedure DEFAULT PHYSICIAN Facility:[email or web address] Start: 03-05-2018 End: 03-06-2018 Patient encounter procedure [facility] Facility:[facility] [[email or web address] Procedures Date Procedure Procedure Detail Performing Clinician Start: 05-27-2024 Radiologic examinati on knee 1/2 views Mely Paige COMPUTER ASSISTANT Work Phone: Start: 01-14-2024 Radiologic examinati on knee 1/2 views Dakota Bryant DO Work Phone: Start: 12-06-2023 Ct thorax w/contrast material Dg Ge [employer] Work Phone: Start: 12-06-2023 Comprehensive metabo lic panel Yanelis Hitchcock [employer] Work Phone: Start: 12-05-2023 Sodium serum plasma or whole blood Dg Ge [employer] Work Phone: Start: 12-05-2023 Urnls dip stick/tabl et rgnt auto w/o microscopy Dg Ge [employer] Work Phone: Start: 12-05-2023 Radiologic exam ches t 2 views Dg Ge [employer] Work Phone: Start: 12-05-2023 Comprehensive metabo lic panel Yanelis Hitchcock [employer] Work Phone: Start: 12-04-2023 Comprehensive metabo lic panel Yanelis Hitchcock [employer] Work Phone: Start: 12-04-2023 Ecg routine ecg w/le ast 12 lds trcg only w/o i&r Dakota Bryant DO Work Phone: Start: 12-04-2023 Radiologic examinati on knee 1/2 views Dakota Bryant DO Work Phone: Start: 12-04-2023 End: 12-04-2023 Arthrp kne condyle&platu medial&lat compartments Dakota Bryant DO Work Phone: Start: 12-04-2023 REPEATED ABORH Dakota Bryant DO Work Phone: Start: 07-04-[address] DESIRAE FRANCO . Comment on above: Performed By: #### V ITAD, PSASC #### [facility] [address] [place] [address] Dr. Cami Bishop Start: 03-05-2018 R HRT CORONARY ARTERY ANGIO EHAB A JESSENIA Plan of Treatment Date Care Activity Detail Author Start: 11-25-2024 End: 11-25-2024 Patient encounter procedure 11/25/2024 1:00 PM EDT Office Visit [facility] [address] [place] [address] Mely Paige, COMPUTER ASSISTANT [address] [place] [address] [facility] Start: 11-06-2024 Adult BMI Screening Adult BMI Screen ing [facility] Start: 11-06-2024 Tobacco Screening Tobacco Screening [facility] Start: 05-27-2024 End: 05-27-2024 Patient encounter procedure 05/27/2024 2:45 PM EST Office Visit [facility] [address] [place] [address] Mely Paige, COMPUTER ASSISTANT [address] [place] [address] Status post right knee replacement; Primary osteoarthritis of right knee [facility] Comment on above: Status post right kn ee replacement; Primary osteoarthritis of right knee Start: 05-26-2024 End: 05-26-2024 Patient encounter procedure 05/26/2024 11:00 AM EST Office Visit [facility] [address] [place] [address] Mely Paige, FRANK [address] [facility] [place] [address] [facility] Start: 03-24-2024 End: 03-24-2024 Patient encounter procedure 03/24/2024 10:45 AM EST Office Visit [facility] [address] [place] [address] Dakota Bryant DO [address] [place] [address] [facility] Start: 02-25-2024 End: 02-25-2024 Patient encounter procedure [facility] Comment on above: Status post right kn ee replacement; Primary osteoarthritis of right knee Start: 02-18-2024 End: 02-18-2024 ambulatory 02/18/2024 11:00 AM EDT Treatment [facility] [address] [place] [address] Jona Sterling, PT [facility] Start: 02-13-2024 End: 02-13-2024 ambulatory 02/13/2024 12:30 PM EDT Treatment [facility] [address] [place] [address] Jona Sterling, PT [facility] Start: 02-11-2024 End: 02-11-2024 ambulatory [facility] Comment on above: Arrived Start: 02-06-2024 End: 02-06-2024 ambulatory 02/06/2024 2:00 PM EDT Treatment [facility] [address] [place] [address] Adriana Reddy, [employer] [facility] Start: 02-04-2024 End: 02-04-2024 ambulatory [facility] Comment on above: Arrived Start: 01-30-2024 End: 01-30-2024 ambulatory [facility] Comment on above: Arrived Start: 01-28-2024 End: 01-28-2024 ambulatory [facility] Comment on above: Arrived Start: 01-23-2024 End: 01-23-2024 ambulatory [facility] Comment on above: Arrived Start: 01-21-2024 End: 01-21-2024 ambulatory [facility] Comment on above: Arrived Start: 01-19-2024 [facility] Start: 01-16-2024 End: 01-16-2024 ambulatory [facility] Comment on above: Arrived Start: 01-14-2024 End: 01-14-2024 ambulatory 01/14/2024 2:00 PM EDT Treatment [facility] [address] [place] [address] Adriana Reddy [employer] [facility] Start: 01-14-2024 End: 01-14-2024 Patient encounter procedure 01/14/2024 10:30 AM EDT Office Visit [facility] [address] [place] [address] Dakota Bryant, DO [address] [place] [address] [facility] Start: 01-09-2024 End: 01-09-2024 ambulatory 01/09/2024 5:00 PM EDT Treatment [facility] [address] [place] [phone] Jona Sterling, PT [facility] Start: 01-07-2024 End: 01-07-2024 ambulatory 01/07/2024 2:30 PM EDT Treatment [facility] [address] [place] [address] Adriana Reddy, [employer] Arrived [facility] Comment on above: Arrived Start: 12-04-2023 End: 12-04-2023 Admission to same day surgery center 12/04/2023 10:15 AM EDT - 12/04/2023 12:45 PM EDT Surgery [facility] [address] [facility] [place] [id number] Dakota Bryant, DO [address] [place] [address] REPLACEMENT TOTAL JOINT KNEE [29985 (CPT )] [facility] Comment on above: REPLACEMENT TOTAL CHEN INT KNEE [53029 (CPT )] Start: 12-04-2023 End: 12-04-2023 Arthrp kne condyle&platu medial&lat compartments REPLACEMENT TOTAL JOINT KNEE right knee degenerative joint disease 12/04/2023 10:15 AM EDT [facility] Start: 12-04-2023 Subsequent hospital visit by physician 12/04/2023 10:15 AM EDT Hospital Encounter [facility] [address] [facility] [facility] [id number] Dakota Bryant, DO [address] [place] [address] [facility] Start: 11-25-2023 End: 10-17-2024 Crossmatch RBC Crossmatch RBC Blood Bank Routine Preop examination Coronary artery disease, unspecified vessel or lesion type, unspecified whether angina present, unspecified whether [place] or transplanted heart Hypertension, unspecified type History of myocardial infarction Expected: 11/25/2023, Expires: 10/17/2024 [facility] Comment on above: Expected: 11/25/2023 , Expires: 10/17/2024 Start: 11-25-2023 End: 10-17-2024 Type and screen(includes indirect naya) Type and screen(includes indirect naya) Blood Bank Routine Preop examination Coronary artery disease, unspecified vessel or lesion type, unspecified whether angina present, unspecified whether [place] or transplanted heart Hypertension, unspecified type History of myocardial infarction Expected: 11/25/2023, Expires: 10/17/2024 [facility] Work Phone: Comment on above: Expected: 11/25/2023 , Expires: 10/17/2024 Start: 09-08-2023 COVID-19 Vaccine ( season) COVID[facility]19 [facility]ine ( season) [facility] Fall Risk Screening Fall Risk Screen ing [facility] [employer] [facility] Start: 2011 Pneumococcal Vaccine : 65+ Years (1 of 1 - PCV) Pneumococcal Vaccine: 65+ Years (1 of 1 - PCV) [facility] Start: 1996 Administration of varicella zoster vaccine Zoster (Shingles) Vaccine (1 of 2) [facility] [employer] [facility] Start: 1965 DTaP,Tdap and Td Vaccines (1 - Tdap) DTaP,Tdap and Td Vaccines (1 - Tdap) [facility] Start: 1964 Adult BMI Follow Up Plan Adult BMI Follow Up Plan [facility] Start: 1958 Depression Screening Depression Scre [facility]ing [facility] Start: 1946 Medicare Annual Well ness Visit Medicare Annual Wellness Visit [facility] CBC panel - Blood by Automated count CBC without diff Lab Routine Lab max of 3 days, Daily, for lab use only until discontinued starting 12/04/2023, 3 completed [employer] Comment on above: Lab max of 3 days, D aily, for lab use only until discontinued starting 12/04/2023, 3 completed Comprehensive metabo lic 2000 panel - Serum or Plasma Comprehensive metabolic panel Lab Routine Lab max of 3 days, Daily, for lab use only until discontinued starting 12/04/2023, 3 completed [employer] Work Phone: Comment on above: Lab max of 3 days, D aily, for lab use only until discontinued starting 12/04/2023, 3 completed Magnesium [Mass/volu me] in Serum or Plasma Magnesium Lab Routine Lab max of 3 days, Daily, for lab use only until discontinued starting 12/04/2023, 3 completed [employer] Comment on above: Lab max of 3 days, D aily, for lab use only until discontinued starting 12/04/2023, 3 completed Oxygen Therapy - Maintain SpO2: 90% or greater; *DIRECTOR OF TRAINING Guidelines for O2: Yes; Document: [email or web address] c\EPIC_Reference\Orders\ Respiratory Care Guidelines\CPG Oxygen 2022.pdf Oxygen Therapy - Maintain SpO2: 90% or greater; *DIRECTOR OF TRAINING Guidelines for O2: Yes; Document: [email or web address] ic\EPIC_Reference\Order s\Respiratory Care Guidelines\CPG Oxygen 2022.pdf Respiratory Care Routine As Needed until discontinued starting 12/04/2023 [employer] Work Phone: Comment on above: As Needed until disc ontinued starting 12/04/2023 Payers Date Payer Category Payer Medicare (Managed Care) [facility] [id number] 2022 Medicare 1958 Private Health Insurance [id number] 1946 Unknown [id number] 2.16.840.1.798682.3.579. 2.647 1946 Unknown [id number] 2.16.840.1.746219.3.579. 2.647 1946 Unknown [id number] 2.16.840.1.009883.3.579. 2.593 1946 Unknown [id number] 2.16.840.1.864120.3.579. 2.593 1946 Unknown [id number] 2.16.840.1.474160.3.579. 2.196 1946 Unknown [id number] 2.16.840.1.253517.3.579. 2.1286 1946 Unknown [id number] 2.16.840.1.183299.3.579. 2.1286 1946 Unknown [id number] 2.16.840.1.143290.3.579. 2.1286 1946 Unknown [id number] 2.16.840.1.275099.3.579. 2.1286 1946 Unknown [id number] 2.16.840.1.500455.3.579. 2.1286 1946 Unknown [id number] 2.16.840.1.659991.3.579. 2.1286 1946 Unknown [id number] 2.16.840.1.816645.3.579. 2.1259 1946 Unknown [id number] 2.16.840.1.166732.3.579. 2.1259 1946 Unknown [id number] 2.16.840.1.435682.3.579. 2.1259 1946 Unknown [id number] 2.16.840.1.507862.3.579. 2.1259 1946 Unknown [id number] 2.16.840.1.312700.3.579. 2.1258 1946 Unknown [id number] 2.16.840.1.762350.3.579. 2.1258 1946 Unknown [id number] 2.16.840.1.954328.3.579. 2.1258 1946 Unknown [id number] 2.16.840.1.864290.3.579. 2.1258 1946 Unknown [id number] 2.16.840.1.788637.3.579. 2.1258 1946 Unknown [id number] 2.16.840.1.163968.3.579. 2.1258 1946 Unknown [id number] 2.16.840.1.502646.3.579. 2.1258 1946 Unknown [id number] 2.16.840.1.378579.3.579. 2.1258 1946 Unknown [id number] 2.16.840.1.239160.3.579. 2.1258 1946 Unknown [id number] 2.16.840.1.845246.3.579. 2.1258 1946 Unknown [id number] 2.16.840.1.601139.3.579. 2.1258 1946 Unknown [id number] 2.16.840.1.629354.3.579. 2.1258 1946 Unknown [id number] 2.16.840.1.632988.3.579. 2.1258 1946 Unknown [id number] 2.16.840.1.504962.3.579. 2.1258 1946 Unknown [id number] 2.16.840.1.875144.3.579. 2.1259 1946 Unknown [id number] 2.16.840.1.132724.3.579. 2.9 1946 Unknown [id number] 2.16.840.1.743011.3.579. 2.9 1946 Unknown [id number] 2.16.840.1.626950.3.579. 2.1258 1946 Unknown [id number] 2.16.840.1.006201.3.579. 2.9 1946 Unknown [id number] 2.16.840.1.049598.3.579. 2.1258 1946 Unknown [id number] 2.16.840.1.553196.3.579. 2.9 1946 Unknown [id number] 2.16.840.1.506351.3.579. 2.1258 1946 Unknown [id number] 2.16.840.1.955590.3.579. 2.9 1946 Unknown [id number] 2.16.840.1.519515.3.579. 2.1259 Unknown Social History Date Type Detail Facility Start: 07-09-2023 End: 11-07-2023 Tobacco smoking status HIIS Never smoked tobacco [facility] Start: 07-09-2023 End: 11-07-2023 Tobacco use and exposure Smokeless tobacco non-user [facility] Start: 12-05-2023 End: 12-17-2023 Alcoholic beverage intake Current drinker of alcohol (finding) [facility] Start: 12-04-2023 End: 12-17-2023 History of Social function [facility] Start: 12-04-2023 End: 12-17-2023 Tobacco use panel [facility] Start: 1945 Sex assigned at Not on file [facility] Start: 11-07-2023 Alcohol Comment occasional [facility] Has the [employer], [employer], or [employer] threatened to shut off services in your home in past 12Mo No [facility] In the past 12 month s, has lack of transportation kept you from medical appointments or from getting medications? No [facility] Medical Equipment Procedure Code Equipment Code Equipment Origin al Text Equipment Identifier Dates Cement Bn Bio 40 gm Rpl [id number] - Sna - [id number] Start: 12-04-2023 Component Fem 8 Std Kn Rt Crcte Rtn Cmnt Persona Cocr - Sna - [id number] Start: 12-04-2023 Component Ptlr 3 5mm Persona Alply Kn Strl Lf - Sna - [id number] Start: 12-04-2023 Surface Artc 16m m Persona Mdl Cngr 8-11 Ef Kn Rt Vivacit-E - Sna - [id number] Start: 12-04-2023 Baseplate Tib 5d F Kn Rt Cmnt Stm Persona Tiv Strl - Sna - [id number] Start: 12-04-2023 Goals Date Patient Goal Desired Activity /State Personal health goal Comment on above: Formatting of this n ote might be different from the original. Evaluation of progress towards goal: awaiting PT/OT evaluation. Daughter at bedside and plans to stay with patient until Saturday. Updated goal: DC to home tomorrow with [facility] and [facility]. SABINO Jo, 12/05/2023, 4:28 PM Clinical Notes 09-27-2023 to 05-27-2024 Mely Paige, COMPUTER ASSISTANT - 05/27/2024 2:45 PM Ekta Bryant, DO - 02/25/2024 11:00 AM Wilfrid Sterling, PT - 02/18/2024 11:00 AM Wilfrid Sterling, PT - 02/13/2024 12:30 PM EDTPatient Instructions Note Date & Type Note Facility 05-27-2024 History of Present illness Narrative Images from the original note were not included. Chief Complaint Patient presents with Right Knee - Follow-up HISTORY OF PRESENT ILLNESS: Sonia Stauffer is an 78 y.o. @ male. (EST PT) S/P RT TKA 12/04/23 (5 MTHS 3 WKS)[facility]. XRAY TODAY EPIC 05/27/24 XRAY EPIC 01/14/24 WALKING UNASSISTED. ACHES DIFFUSE IN KNEE. NOTICES WEATHER CHANGES. ACHES AFTER PROLONGED SITTING. TAKING TYL PRN. DENIES N/T, SWELLING. DENIES GIVING OUT. DOES NOT WAKE AT HS. ALLERGIES: Allergies Allergen Reactions Levofloxacin HOME MEDICATIONS: Current Outpatient Medications Medication Instructions acetaminophen (TYLENOL) 1,000 mg, Every 6 hours PRN amLODIPine (Norvasc) 5 MG tablet Every 24 hours aspirin 81 MG chewable tablet Chew 1 tablet every day by oral route. clopidogrel (PLAVIX) 75 mg, Every morning hydroCHLOROthiazide (HYDRODIURIL) 12.5 mg, Daily Jardiance 10 MG TAKE 1 TABLET BY MOUTH EVERY DAY FOR 30 DAYS lisinopril 40 mg, Daily metFORMIN (Glucophage) 500 MG tablet 1 tablet, 2 times daily metoprolol tartrate (Lopressor) 25 MG tablet Every 12 hours Multiple Vitamins-Minerals (Kyle Multivitamin for Men) tablet Kyle Multi Men niacin 500 MG tablet Every 24 hours omega-3 (fish oil) 1000 MG capsule 1 capsule, Every 24 hours rosuvastatin (CRESTOR) 20 mg, Daily RT simvastatin (ZOCOR) 40 mg, Daily REVIEW OF SYSTEMS: General: Denies fever, fatigue or weight loss Skin: Denies rash, sores or skin changes Eyes: Denies visual disturbance or pain GI: Denies indigestion or abdominal pain Neuro: Denies numbness or tingling, denies new onset paralysis Musculoskeletal: ( see note) PHYSICAL EXAM: Right Knee Exam Tenderness The patient is experiencing no tenderness. Range of Motion Extension: 0 Flexion: 120 Tests Varus: negative Valgus: negative Other Erythema: absent Scars: present Sensation: normal Pulse: present Swelling: none Vitals: There is no height or weight on file to calculate BMI. IMAGING: XR knee 1 or 2 views right Imaging Result: 05/27/2024: Standing AP and LAT of right knee showed surgical position and alignment of prosthetic components without evidence of loosening or wear to the femoral, tibial, or patellar components. The alignment appeared to be anatomic. There was no evidence of accelerated or asymmetric wear to the patellar button or tibial tray. There was no evidence of fracture and/or dislocation. Impression: Stable RT total knee replacement. Mely Paige [employer] ROLLER HAND ASSESSMENT: ICD-10-CM 1. Status post right knee replacement Z96.651 2. Primary osteoarthritis of right knee M17.11 XR knee 1 or 2 views right Procedures PLAN: I reviewed xray with patient which showed stable RT TKA. He is doing well overall with little pain and good ROM. I discussed with the patient the general recommendation for the use of prophylactic antibiotics prior to dental work after joint replacement. I advised the patient that the use of prophylactic antibiotics for dental work is a controversial topic. I currently have recommended that prophylactic antibiotics be used postop and I did advise the patient that the guidelines and recommendations may change on this in the future. He will follow up in 6 months for RCK and xray. Questions answered in laymen terms at the bedside. The diagnosis, home exercise plan and any ongoing restrictions/ recommendations reviewed. If unable to be reached in office, I recommend evaluation at nearest Emergency Room if any symptoms worsened or new symptoms develop for requiring urgent evaluation. Mely Paige [employer]LLER [employer] documented in this encounter [facility] 05-06-2024 Note [facility] Cardiology Clinic Note Chief Complaint: Patient here for 6 mo follow up CAD, hypertension, and hyperlipidemia. His statin was switched from simvastatin to rosuvastatin at last visit in October 2023. Had labs in November, but no lipid. He's tolerating rosuvastatin well he says. The intermittent chest pain he was experiencing has resolved he says. VO remains unchanged. HPI: García Stauffer is a 78 y.o. male Doing well; no chest pain. Shortness of breath is stable No new cardiovascular symptoms Switched from Zocor to Lipitor; has not had labs since Cardiology ROS: Review of Systems Cardiovascular: Positive for dyspnea on exertion. Respiratory: Positive for cough. Musculoskeletal: Positive for arthritis and joint pain. Neurological: Positive for loss of balance. All other systems reviewed and are negative. Past Medical History He has a past medical history of Abnormal ECG, Arrhythmia, Coronary artery disease, Hyperlipidemia, Hypertension, Myocardial infarction (CMS/HCC), and Sleep apnea. Surgical History He has a past surgical history that includes Cardiac catheterization and Coronary stent placement. Social History He reports that he has never smoked. He has never used smokeless tobacco. He reports that he does not currently use alcohol. No history on file for drug use. Family History Family History Problem Relation Name Age of Onset Heart attack Mother 60 Heart attack Maternal Grandmother Allergies Levofloxacin Medications Current Outpatient Medications: amLODIPine (Norvasc) 2.5 mg tablet, Take 1 tablet (2.5 mg) by mouth two times daily., Disp: 180 tablet, Rfl: 3 amLODIPine (Norvasc) 5 mg tablet, Take 5 mg by mouth in the morning., Disp: , Rfl: aspirin 81 mg chewable tablet, Chew 1 tablet every day by oral route., Disp: , Rfl: clopidogrel (Plavix) 75 mg tablet, Take 1 tablet (75 mg) by mouth in the morning., Disp: 90 tablet, Rfl: 3 hydroCHLOROthiazide (Microzide) 12.5 mg capsule, Take 1 capsule (12.5 mg) by mouth in the morning., Disp: 90 capsule, Rfl: 1 lisinopril 40 mg tablet, Take 1 tablet by mouth in the morning., Disp: , Rfl: metFORMIN (Glucophage) 500 mg tablet, Take 500 mg by mouth in the morning and at bedtime., Disp: , Rfl: metoprolol tartrate (Lopressor) 25 mg tablet, Take 1 tablet by mouth in the morning and at bedtime., Disp: , Rfl: rosuvastatin (Crestor) 20 mg tablet, Take 1 tablet (20 mg) by mouth in the morning., Disp: 90 tablet, Rfl: 3 Last Recorded Vitals BP 138/82 (BP Location: Left arm, Patient Position: Sitting) Pulse 75 Ht 1.778 m (5' 10 ) Wt 133 kg (293 lb) SpO2 98% BMI 42.04 kg/m??? Physical Examination: GENERAL: alert and oriented [...] assessed by instantaneous wave-free ratio (iFR). 4. 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 Follow up with me in the [facility] in the next 2 to 4 weeks. 6. Follow up with Dr. Franco as scheduled. PROCEDURES: Ultrasound-guided access to the right internal jugular vein, right heart catheterization, ultrasound-guided access to the left radial artery, bilateral selective coronary angiography, percutaneous balloon angioplasty, and Synergy drug-eluting stent placement in the left anterior descending coronary artery, percutaneous balloon angioplasty, and drug-eluting (more content not included)... [facility] 02-25-2024 History of Present illness Narrative Images from the original note were not included. HISTORY OF PRESENT ILLNESS: Sonia Stauffer is an 78 y.o. @ male. [...] Gilbert's syndrome Gout Hyperlipidemia (CMS/HCC) Hypertension (CMS/HCC) IA (myocardial infarction) (CMS/[facility]) CHRISTIANO (obstructive sleep apnea) Phlebitis ALLERGIES: Allergies [...] Bryant/felicita Bryant D.O. documented in this encounter [facility] 02-18-2024 History of Present illness Narrative Physical Therapy Physical Therapy Treatment Visit Patient Name: Sonia Stauffer Today's Date: 02/18/2024 Encounter Diagnoses Name [...] OP 118 degrees documented in this encounter [facility] 02-13-2024 History of Present illness Narrative Physical Therapy Physical Therapy Treatment Visit Patient Name: Sonia Stauffer Today's Date: 02/13/2024 Encounter Diagnoses Name Primary? Postoperative pain of right knee Yes Presence of artificial knee joint, right *Pt goes by García* Visit number: 13 Time in: 12:33 pm Time out: 1:33 pm Supervised time: 39 min Total time: 60 min Precautions: WBAT Subjective Pain: 1-2/10 knee Overall progress: Improving with overall functional mobility, gait, and knee strength. Less antalgic gait noted upon arrival to PT today. Treatment: Therapeutic Exercise: per grid for improving R knee ROM and strength. x27' supervised / x11' unsupervised Therapeutic Activity: Exercises to improve dynamic activities, functional tasks, functional mobility to return to prior activity level x12' (heel taps, step ups, resisted side stepping, STS) Modalities: ice 10 min post session Assessment: Progressing well with R knee strength and ROM. Progressed heel taps and step ups compared to last session. Pt reports walking more and more at home to help improve his endurance and knee stability. Single UE assist needed for step ups on 8 in box. Mild fatigue and soreness noted post session. Will re assess ROM and MMT next session for final visit. Also will print out updated HEP as well. Plan: Continue to progress as able per PT POC for one more week. Pt feels he will be ready to discharge by next Saturday. documented in this encounter [facility] 02-11-2024 History of Present illness Narrative Physical Therapy Physical Therapy Treatment Visit Patient Name: Sonia Stauffer Today's Date: 02/11/2024 Encounter Diagnoses Name Primary? Postoperative pain of right knee Yes Presence of artificial knee joint, right *Pt goes by García* Visit number: 12 Time in: 10:58 am Time out: 11:56 am Supervised time: 38 min Total time: 58 min Precautions: WBAT Subjective Pain: 2/10 knee Overall progress: Improving with overall functional mobility, gait, and strength. Pt had to cancel Saturday due to high pain levels. Says the pain is much better today. He is unsure as to why his pain was so high then. Continues to ambulate at home without his cane. Treatment: Therapeutic Exercise: per grid for improving R knee ROM and strength. x28' supervised / x10' unsupervised Therapeutic Activity: Exercises to improve dynamic activities, functional tasks, functional mobility to return to prior activity level x10' (step ups with KB, STS, heel taps) Modalities: ice 10 min post session Assessment: Progressing well with R knee strength and ROM. Cueing for foot placement during LLR to prevent compensation. Minor pain in the knee when turning over to do LLR; pain ceased after about 30 seconds to a minute. Making good improvements with heel taps and step ups. Continued education on healing time following a TKA. No UE support needed during 4 in step up with weight. Plan: Continue to progress as able per PT POC for one more week. Pt feels he will be ready to discharge by next Saturday. documented in this encounter [facility] 01-30-2024 History of Present illness Narrative Physical Therapy Physical Therapy Treatment Visit Patient Name: Sonia Stauffer Today's Date: 01/30/2024 Encounter Diagnoses Name [...] improve overall gait. documented in this encounter [facility] 01-23-2024 History of Present illness Narrative Physical Therapy Physical Therapy Treatment Visit Patient Name: Sonia Stauffer Today's Date: 01/23/2024 Encounter Diagnoses Name Primary? Postoperative pain of right knee Yes Presence of artificial knee joint, right *Pt goes by García* Visit number: 9 Time in: 11:30 am Time out: 12:30 pm Supervised time: 38 min Total time: 60 min Precautions: WBAT Subjective Pain: Normal achiness in the knee Overall progress: Improving overall with knee mobility and strength. Antalgic and trendelenburg gait still present. Pt says he had increased soreness yesterday in the knee. Objective: Gait: R antalgic, R trendelenburg Knee FL ROM: 117 degrees with strap Ext ROM: 2 degrees from neutral R hip MMT FL: 4+/5 ABD: 4/5 R knee MMT grossly: 4+/5 Treatment: Therapeutic Exercise: per grid for improving R knee ROM and strength. x23' supervised / x12' unsupervised Therapeutic Activity: Exercises to improve dynamic activities, functional tasks, functional mobility to return to prior activity level x15' (step ups, TRX squats with band, resisted side stepping, heel taps) Modalities: ice 10 min post session Assessment: PN completed today. Pt has made good improvements with ROM and strength. Trendelenburg and antalgic gait still present due to hip and knee instability. Added heel taps this session to help improve this. ROM and MMT are listed above in the objective. Cues needed to correct form for LLR. Minor fatigue and soreness noted post session. Plan: Continue to progress as able per PT POC for another 2-3 weeks so the pt can make further improvements in knee/hip stability to improve overall gait. documented in this encounter [facility] 01-16-2024 History of Present illness Narrative Physical Therapy Physical Therapy Treatment Visit Patient Name: Sonia Stauffer Today's Date: 01/16/2024 Encounter Diagnoses Name Primary? Postoperative pain of right knee Yes Presence of artificial knee joint, right *Pt goes by García* Visit number: 7 Time in: 11:30 am Time out: 12:30 pm Supervised time: 41 min Total time: 60 min Precautions: WBAT Subjective Pain: 0/10. Pt says the knee is feeling pretty good today. Overall progress: Improving overall with knee mobility and strength. Pt arrived to PT without his cane today. Treatment: Therapeutic Exercise: per grid for improving R knee ROM and strength. X29' supervised / x9' unsupervised Therapeutic Activity: Exercises to improve dynamic activities, functional tasks, functional mobility to return to prior activity level x12' (step ups, TRX squats, resisted side stepping) Modalities: ice 10 min post session Assessment: Knee AAROM measured at 115 degrees today; this is improving with each week. Overall gait and mobility is improving. Minor antalgic gait noted as this is the first session the pt arrived to PT without his cane. Added DD balance to focus on improving knee stability; challenged initially but able to complete with only occasional single UE assist. Progress as able. Plan: Continue to progress as able per PT POC. Can try to add heel taps next session. documented in this encounter [facility] 01-14-2024 History of Present illness Narrative Images from the original note were not included. HISTORY OF PRESENT ILLNESS: Sonia Stauffer is an 78 y.o. @ male. Follow up RT TKA RT Knee: 6 weeks s/p RT TKA 12/04/23. Presents FWB with cane. He is going to OP PT. Pain is getting better everyday. Taking TYL prn. Denies N/T. Incision healing well. Not sleeping well. Pt is happy with outcome so far. [...] Gilbert's syndrome Gout Hyperlipidemia (CMS/HCC) Hypertension (CMS/HCC) IA (myocardial infarction) (CMS/HCC) CHRISTIANO (obstructive sleep apnea) Phlebitis ALLERGIES: Allergies Allergen Reactions Levofloxacin VITALS: Visit Vitals Smoking Status Never PHYSICAL EXAM: Ortho Exam RIGHT KNEE Incision healing nicely Ambulating using cane walks easily without the cane in the exam room ROM 0-100 IMAGING: XR knee 1 or 2 views right Imaging Result: January 14, 2004 x-rays AP and lateral of the right knee demonstrate cemented knee replacement in good position alignment without signs of loosening fracture or failure. 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 ASSESSMENT: ICD-10-CM 1. Primary osteoarthritis of right knee M17.11 XR knee 1 or 2 views right 2. Status post right knee replacement Z96.651 PLAN: I discussed with the patient the general [...] may change on this in the future. Follow up in 6 weeks, any issues/concerns follow up sooner. Dr. Bryant obtained history and examined the patient, I am acting as scribe for Dr. Bryant/felicita Bryant D.O. documented in this encounter [facility] 01-09-2024 History of Present illness Narrative Physical Therapy Physical Therapy Treatment Visit Patient Name: Sonia Stauffer Today's Date: 01/09/2024 Encounter Diagnoses Name Primary? Postoperative pain of right knee Yes Presence of artificial knee joint, right *Pt goes by García* Visit number: 5 Time in: 5:00 pm Time out: 5:57 pm Supervised time: 36 min Total time: 58 min Precautions: WBAT Subjective Pain: 1-2/10 soreness Overall progress: Improving overall with knee mobility and strength. Main compliant is weakness. Still walking with cane. Treatment: Therapeutic Exercise: per grid for improving R knee ROM and strength. x36' supervised / x12' unsupervised Modalities: ice 10 min post session Assessment/Plan PROM knee FL to 115 degrees today. Added step ups to today's session. ROM is improving well at this time; still has some weakness and instability in the R knee. Pt needing single [employer] HAND when doing step ups. Still walking with the cane due to weakness in the knee. Continue to progress as able per PT POC. documented in this encounter [facility] 12-06-2023 History of Present illness Narrative Mellisa Fernando CONSUMER INSIGHTS SPECIALIST will come to patient room and attempt US Guided PIV for CT procedure. Second attempt as follows for US Guidance PIV, this nurse telephoned circuit walker Supervisor Offset Plate Preparation, , left message. PIV access attempted by this nurse X2, unsuccessful. Second RN attempted PIV, Unsuccessful. Patient in need for PIV for CT as ordered. Telephoned ER for US guidance PIV, ER verbalized no one is available to assist at this time, and connected this nurse to circuit walker Supervisor Offset Plate Preparation, , left message. Waiting for response. Orthopedic Daily Progress Note: Post op Knee ASSESSMENT: #1 postop day 1, right total knee arthroplasty #2 postoperative blood loss anemia Post-Operative Day: 1 Day Post-Op Status post Procedure(s): REPLACEMENT TOTAL JOINT KNEE (Right) - Wound Class: Clean - Incision Closure: Deep and Superficial Layers PLAN: Patient is doing well but would like to have a couple more sessions with PT and work on pain control. He will stay 1 more night with plans to discharge home tomorrow with home PT. SUBJECTIVE: Patient admits to pain to operative extremity. Denies shortness of breath or chest pain or orthopnea dyspepsia or abdominal pain. Patient admits to flatus, Denies evidence of infection. GENERAL: Patient is alert and oriented to person place and time, appears without distress and is appropriate HEENT: Pupils equal and reactive to light and accommodation sclera without jaundice or injection. Cranial nerves II through XII grossly intact. CARDIOVASCULAR: Cardiac exam revealed the PMI to be normally situated and sized. The rhythm was regular and no extrasystoles were noted during auscultation. There were no murmurs, rubs, clicks, or gallops. Patient denies chest pain or orthopnea or palpitations PULMONARY: Lungs were clear to auscultation. No wheezes or rales were noted. Patient denies shortness of breath ABDOMEN: Abdominal exam revealed normal bowel sounds. The abdomen was soft, non-tender, and without masses, organomegaly, or appreciable enlargement of the abdominal aorta. Patient denied abdominal pain or dyspepsia. Patient admits to flatus. EXTREMITIES: Dressing clean dry and intact. The operative lower extremity was neurovascularly intact without any sensorimotor deficits noted distal to the operative knee. Patient was able to motor feet toes ankle and knee in all anatomic planes with 5 out of 5 strength to the operative lower extremity. Dorsalis pedis and posterior tibial pulses were present and equal bilaterally. Sensation to light touch was intact all dermatomes to lower extremities bilaterally. Negative Homans and negative Sundar were noted bilaterally to lower extremities. There was no evidence of infection the lower extremities bilaterally. Compartments were soft to lower extremities bilaterally. INCISION: Incision healing without evidence of infection. No evidence of ascending lymphangitis OBJECTIVE FINDINGS: BP 115/66 Pulse 67 Temp 36.6 C (97.9 F) (Oral) Resp 16 Ht 179.1 cm (5' 10.5 ) Wt 127.9 kg (282 lb) SpO2 98% BMI 39.89 kg/m O2 Device: None (Room air) Data Review Labs Recent Results (from the past 24 hour(s)) Comprehensive metabolic panel Collection Time: 12/04/23 10:10 PM Result Value Ref Range Sodium 130 (L) 134 - 146 mmol/L Potassium, Bld 3.8 3.5 - 5.0 mmol/L Chloride 95 (L) 98 - 109 mmol/L CO2 25 22 - 32 mmol/L Anion gap 10 5 - 15 mmol/L BUN 16 5 - 27 mg/dL Creatinine 0.91 0.70 - 1.20 mg/dL Glucose 174 (H) 65 - 99 mg/dL Calcium 8.2 (L) 8.5 - 10.5 mg/dL Total Protein 6.3 6.0 - 8.0 g/dL Albumin 3.8 3.2 - 5.3 g/dL Alkaline Phosphatase 32 (L) 39 - 130 U/L AST 21 0 - 41 U/L ALT 20 0 - 40 U/L Total bilirubin 1.6 (H) 0.3 - 1.2 mg/dL eGFR (CKD-EPI)non-race dependent 87 >59 ml/min/1.73sq.m CBC without diff Collection Time: 12/04/23 10:10 PM Result Value Ref Range White Blood Cells 14.2 (H) 4.0 - 11.0 X10E9/L RBC count 4.63 4.10 - 5.70 X10E12/L Hemoglobin 14.5 13.0 - 17.0 g/dL Hematocrit 42.1 39 - 49 % MCV 91 80 - 100 fL MCH 31.2 27 - 34 pg MCHC 34.3 32 - 36 g/dL RDW 13.1 11.5 - 15.0 % Platelets 268 150 - 450 X10E9/L MPV 7.9 7 - 12 fL Magnesium Collection Time: 12/04/23 10:10 PM Result Value Ref Range Magnesium 1.8 1.8 - 2.6 mg/dL Phosphorus Collection Time: 12/04/23 10:10 PM Result Value Ref Range Phosphorus 2.5 2.4 - 4.9 mg/dL TSH with Reflex Collection Time: 12/04/23 10:10 PM Result Value Ref Range TSH 0.45 (L) 0.49 - 4.67 uIU/mL T4, free Collection Time: 12/04/23 10:10 PM Result Value Ref Range T4, free 0.84 0.61 - 1.60 ng/dL Comprehensive metabolic panel Collection Time: 12/05/23 4:39 AM Result Value Ref Range Sodium 129 (L) 134 - 146 mmol/L Potassium, Bld 4.0 3.5 - 5.0 mmol/L Chloride 97 (L) 98 - 109 mmol/L CO2 25 22 - 32 mmol/L Anion gap 7 5 - 15 mmol/L BUN 15 5 - 27 mg/dL Creatinine 0.88 0.70 - 1.20 mg/dL Glucose 134 (H) 65 - 99 mg/dL Calcium 7.9 (L) 8.5 - 10.5 mg/dL Total Protein 5.6 (L) 6.0 - 8.0 g/dL Albumin 3.3 3.2 - 5.3 g/dL Alkaline Phosphatase 25 (L) 39 - 130 U/L AST 16 0 - 41 U/L ALT 16 0 - 40 U/L Total bilirubin 1.6 (H) 0.3 - 1.2 mg/dL eGFR (CKD-EPI)non-race dependent 89 >59 ml/min/1.73sq.m CBC without diff Collection Time: 12/05/23 4:39 AM Result Value Ref Range White Blood Cells 12.6 (H) 4.0 - 11.0 X10E9/L RBC count 4.20 4.10 - 5.70 X10E12/L Hemoglobin 13.1 13.0 - 17.0 g/dL Hematocrit 38.1 (L) 39 - 49 % MCV 91 80 - 100 fL MCH 31.2 27 - 34 pg MCHC 34.4 32 - 36 g/dL RDW 13.0 11.5 - 15.0 % Platelets 243 150 - 450 X10E9/L MPV 8.2 7 - 12 fL Magnesium Collection Time: 12/05/23 4:39 AM Result Value Ref Range Magnesium 2.1 1.8 - 2.6 mg/dL Microbiology Results No results found for the last 168 hours. MELY PAIGE, LUI-SUCTION PLATE ROLLER HAND 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 PLATE ROLLER HAND 12/05/23 1246 documented in this [facility] Hospital course Narrative Orthopaedic Discharge Summary Patient ID: Sonia Stauffer [id number] y.o. 1945 Admit date: 12/04/2023 Discharge date and time: No discharge date for patient encounter. Admitting Physician: Dakota Bryant DO Discharge Physician: same Admission Diagnoses: Severe degenerative joint disease right Knee Discharge Diagnoses: Severe degenerative joint disease right Knee Admission Condition: stable Discharged Condition: stable Indication for Admission: The patient was noted via outpatient basis to have recalcitrant pain and decreased range of motion to the operative knee with physical diagnostic modalities consistent with severe degenerative joint disease. They exhibited an antalgic gait which was affecting balance, coordination, stability on stairs and causing pain to hip and low back. They tried nonsteroidal anti-inflammatories, home exercise program, intra-articular cortisone injection, strength and fitness program at home without relief of symptoms. X-rays revealed severe tricompartmental degenerative joint disease to the operative knee with decrease joint space height noted tricompartmentally, marginal osteophytes noted, and flattening of the articular surfaces noted tricompartmentally. The patient requested to have a total knee arthroplasty performed because the pain was markedly affecting her activities of daily living and ability to sleep. Surgical procedure: Procedure(s): REPLACEMENT TOTAL JOINT KNEE (Right) - Wound Class: Clean - Incision Closure: Deep and Superficial Layers Consults: hosptalist for medical management and mangement of home meds Significant Diagnostic Studies: Daily hemoglobin and hematocrit Hospital Course:See [facility] inpatient notes for specifics Patient was admitted to the hospital and underwent a right total knee arthroplasty on the above mentioned date. The patient progressed well throughout the hospital stay. First postoperative day patient was placed in physical therapy to gait training with a walker weightbearing as tolerated to operative lower extremity and increase strength and range of motion of the operative lower extremity. Patient was placed on DVT and infection prophylaxis postoperatively. At time of discharge the patient was experiencing no difficulty with spontaneous urinations and flatus. The Patient showed excellent oral intake of fluids and solids. The Patient denied chest pain shortness of breath or orthopnea, abdominal pain or dyspepsia.. The Patient's condition on discharge was stable and the incision was stable on discharge. The patient experienced no adverse drug reactions while admitted the hospital. The patient is expected to make a full and expedient recovery and to achieve a level ambulation similar to or slightly less than that prior to admission. Patient is noted to have Leukocytosis prior to surgery. Hospitalist managing and white count continuing to trend downward. Chest x-ray shows possible lymphadenopathy and urinalysis negative. CT with contrast ordered but noted to still be cleared to discharge per hospitalist note. The Patient's operative lower extremity was neurovascularly unchanged without any sensory or motor deficits noted distal to the operative knee. The Patient's activity level on discharge is to be gait training with a walker weightbearing as tolerated to operative lower extremity. The patient was placed on DVT prophylaxis. Patient was given a follow-up appointment to see me in my office in approximately 10 days. Disposition: Stable Patient Instructions: @MEDDISCHARGE@ Activity: Gait training with walker weightbearing as tolerated to right Lower extremity, Increased strength and range of motion operative knee. Diet: Regular home diet Wound Care: May shower daily and redressed the wound after Follow-up with Dakota Bryant DO in 10-14 days. Signed: DEE WEST APRN-CNP 12/06/23 1225 documented in this encounter [employer] 12-06-2023 Progress note Formatting of t his note is different from the original. Physical Therapy Treatment Discharge Recommendations PT Recommendations: Home Home Recommendations: Intermittent caregiver support for: Post Discharge Therapy Recommendations: Home Physical Therapy 6 Clicks: Basic Mobility Turning from your back to your side while in a flat bed without using bed rails?: None Moving from lying on your back to sitting on side of flat bed without using bed rails?: None Moving to and from bed to a chair (including w/c)?: A little Standing up from a chair using your arms (e.g. w/c or bedside chair)?: None To walk in hospital room?: A little Climbing 3-5 steps with a railing?: A lot Scoring 6 Clicks: Basic Mobility Raw Score: 20 CMS G Code Modifier: CJ Therapy Plan Need for skilled Physical Therapy to address deficits in functional mobility due to a status decline resulting from S/P R TKA. Patient Response to Treatment: Progressing toward goals Assessment Patient Assessment Patient Response to Treatment: Progressing toward goals Visit RN Communication: Yes Medical Record Reviewed: Yes PT Type of Visit: Treatment Precautions Activity: Ok to treat per RN Equipment: rolling walker, nonskid socks, IV, gait belt Weight Bearing Status: WBAT R LE Telemetry/Occ Med Physician: No Other: S/P R TKA Pain Assessment Pain Assessment: 0-10 Pain Score: 7 Pain Type: Surgical pain Pain Location: Knee Pain Orientation: Right Pain Intervention(s): Rest, Cold applied Response to Interventions: Pain improved Cognition Orientation Level: Oriented X4 Bed Mobility Supine to Sit: Stand by assist Sit to Supine: Stand by assist Transfers Sit to Stand: Supervision Stand to Sit: Supervision Gait Base of Support: Within Functional Limits Pattern: Decreased remy, Antalgic gait Gait Assistance: Contact guard assist Assistive Device: Rolling walker Gait Distance: 62ft Limiting Factors to Gait: Weakness, Pain (refuses) 2 Turns: Yes Balance Sitting Balance: Static: Good Sitting Balance: Dynamic: Good Standing Balance: Static: Fair Standing Balance: Dynamic: Fair Activity Tolerance Endurance: Tolerates <30 minutes activity WITHOUT vital sign changes Plan Physical Therapy Care Plan Physical Therapy Care Plan (Active) Template: PT - Physical Therapy Problem: Activity Tolerance Dates: Start: 12/05/23 Disciplines: PT Goal: Tolerate 30 minutes of activity WITH rest breaks Dates: Start: 12/05/23 Expected End: 12/14/23 Description: Goal Description: Disciplines: PT Outcomes Date/Time User Outcome 12/06/23 1218 Chelita Gray PT Not Progressing 12/06/23 1124 Chelita Gray PT Progressing Goal note from Hospital Encounter 10/16/2023 by Chelita Gray PT Evaluation of progress towards goal: is not tolerating increased activity, refuses Problem: Gait Dates: Start: 12/05/23 Disciplines: PT Goal: Patient will perform gait with Stand By Assist Dates: Start: 12/05/23 Expected End: 12/14/23 Description: Pt to be able to ambulate 200ft with walker to be able to safely manage household distances at discharge. Disciplines: PT Outcomes Date/Time User Outcome 12/06/23 1218 Chelita Gray PT Not Progressing 12/06/23 1124 Chelita Gray, PT Progressing 12/05/23 1356 Chelita Gray PT Not Progressing Goal note from Hospital Encounter 10/16/2023 by Chelita Gray PT Evaluation of progress towards goal: 62ft with walker and SBA Problem: Standing Balance Dates: Start: 12/05/23 Disciplines: PT Goal: Improve balance to good Dates: Start: 12/05/23 Expected End: 12/14/23 Description: Static Dynamic Pt to have balance of good in order to decrease risk of falls at discharge. Disciplines: PT Outcomes Date/Time User Outcome 12/06/23 1218 Chelita Gray, PT Progressing 12/06/23 1124 Chelita Gray, PT Progressing 12/05/23 1356 Chelita Gray PT Progressing Goal note from Hospital Encounter 10/16/2023 by Chelita Gray PT Evaluation of progress towards goal: fair with walker Physical Therapy Care Plan (Resolved) Template: PT - Physical Therapy Problem: Bed Mobility Dates: Start: 12/05/23 Resolved: 12/06/23 Disciplines: PT Goal: Patient will perform bed mobility with Stand By Assist (Resolved) Dates: Start: 12/05/23 Expected End: 12/14/23 Resolved: 12/06/23 Description: Goal Description: Pt to perform bed mobility in order to be able to decrease risk of further skin breakdown. Disciplines: PT Outcomes Date/Time User Outcome 12/06/23 1124 Chelita Gray, PT Completed 12/05/23 1356 Chelita Gray PT Progressing Goal note from Hospital Encounter 10/16/2023 by Chelita Gray PT Evaluation of progress towards goal: SBA Problem: Transfers Dates: Start: 12/05/23 Resolved: 12/06/23 Disciplines: PT Goal: Patient will perform transfers with Stand By Assist (Resolved) Dates: Start: 12/05/23 Expected End: 12/14/23 Resolved: 12/06/23 Description: Goal Description: Pt to be able to safely transfer with least amount of assistance to demonstrate decreased need for caregiver assistance and ease with home transfers. Disciplines: PT Outcomes Date/Time User Outcome 12/06/23 1124 Chelita Gray, PT Completed 12/05/23 1356 Chelita Gray PT Progressing Goal note from Hospital Encounter 10/16/2023 by Chelita Gray PT Evaluation of progress towards goal: SBA Principal Problem: Primary osteoarthritis of right knee Active Problems: Hypertension Hyperlipidemia Hyponatremia [employer] 12-06-2023 Miscellaneous Notes Physical Therapy Treatment Discharge Recommendations PT Recommendations: Home Home Recommendations: Intermittent caregiver support for: Post Discharge Therapy Recommendations: Home Physical Therapy 6 Clicks: Basic Mobility Turning from your back to your side while in a flat bed without using bed rails?: None Moving from lying on your back to sitting on side of flat bed without using bed rails?: None Moving to and from bed to a chair (including w/c)?: A little Standing up from a chair using your arms (e.g. w/c or bedside chair)?: None To walk in hospital room?: A little Climbing 3-5 steps with a railing?: A lot Scoring 6 Clicks: Basic Mobility Raw Score: 20 CMS G Code Modifier: CJ Therapy Plan Need for skilled Physical Therapy to address deficits in functional mobility due to a status decline resulting from S/P R TKA. Patient Response to Treatment: Progressing toward goals Assessment Patient Assessment Patient Response to Treatment: Progressing toward goals Visit RN Communication: Yes Medical Record Reviewed: Yes PT Type of Visit: Treatment Precautions Activity: Ok to treat per RN Equipment: rolling walker, nonskid socks, IV, gait belt Weight Bearing Status: WBAT R LE Telemetry/Occ Med Physician: No Other: S/P R TKA Pain Assessment Pain Assessment: 0-10 Pain Score: 7 Pain Type: Surgical pain Pain Location: Knee Pain Orientation: Right Pain Intervention(s): Rest, Cold applied Response to Interventions: Pain improved Cognition Orientation Level: Oriented X4 Bed Mobility Supine to Sit: Stand by assist Sit to Supine: Stand by assist Transfers Sit to Stand: Supervision Stand to Sit: Supervision Gait Base of Support: Within Functional Limits Pattern: Decreased remy, Antalgic gait Gait Assistance: Contact guard assist Assistive Device: Rolling walker Gait Distance: 62ft Limiting Factors to Gait: Weakness, Pain (refuses) 2 Turns: Yes Balance Sitting Balance: Static: Good Sitting Balance: Dynamic: Good Standing Balance: Static: Fair Standing Balance: Dynamic: Fair Activity Tolerance Endurance: Tolerates <30 minutes activity WITHOUT vital sign changes Plan Physical Therapy Care Plan Physical Therapy Care Plan (Active) Template: PT - Physical Therapy Problem: Activity Tolerance Dates: Start: 12/05/23 Disciplines: PT Goal: Tolerate 30 minutes of activity WITH rest breaks Dates: Start: 12/05/23 Expected End: 12/14/23 Description: Goal Description: Disciplines: PT Outcomes Date/Time User Outcome 12/06/23 1218 Chelita Gray, PT Not Progressing 12/06/23 1124 Chelita Grya PT Progressing Goal note from Hospital Encounter 10/16/2023 by Chelita Gray PT Evaluation of progress towards goal: is not tolerating increased activity, refuses Problem: Gait Dates: Start: 12/05/23 Disciplines: PT Goal: Patient will perform gait with Stand By Assist Dates: Start: 12/05/23 Expected End: 12/14/23 Description: Pt to be able to ambulate 200ft with walker to be able to safely manage household distances at discharge. Disciplines: PT Outcomes Date/Time User Outcome 12/06/23 1218 Chelita Gray, PT Not Progressing 12/06/23 1124 Chelita Gray, PT Progressing 12/05/23 1356 Chelita Gray PT Not Progressing Goal note from Hospital Encounter 10/16/2023 by Chelita Gray PT Evaluation of progress towards goal: 62ft with walker and SBA Problem: Standing Balance Dates: Start: 12/05/23 Disciplines: PT Goal: Improve balance to good Dates: Start: 12/05/23 Expected End: 12/14/23 Description: Static Dynamic Pt to have balance of good in order to decrease risk of falls at discharge. Disciplines: PT Outcomes Date/Time User Outcome 12/06/23 1218 Chelita Gray, PT Progressing 12/06/23 1124 Chelita Gray, PT Progressing 12/05/23 1356 Chelita Gray PT Progressing Goal note from Hospital Encounter 10/16/2023 by Chelita Gray PT Evaluation of progress towards goal: fair with walker Physical Therapy Care Plan (Resolved) Template: PT - Physical Therapy Problem: Bed Mobility Dates: Start: 12/05/23 Resolved: 12/06/23 Disciplines: PT Goal: Patient will perform bed mobility with Stand By Assist (Resolved) Dates: Start: 12/05/23 Expected End: 12/14/23 Resolved: 12/06/23 Description: Goal Description: Pt to perform bed mobility in order to be able to decrease risk of further skin breakdown. Disciplines: PT Outcomes Date/Time User Outcome 12/06/23 1124 Chelita Gray, PT Completed 12/05/23 1356 Chelita Gray PT Progressing Goal note from Hospital Encounter 10/16/2023 by Chelita Gray PT Evaluation of progress towards goal: SBA Problem: Transfers Dates: Start: 12/05/23 Resolved: 12/06/23 Disciplines: PT Goal: Patient will perform transfers with Stand By Assist (Resolved) Dates: Start: 12/05/23 Expected End: 12/14/23 Resolved: 12/06/23 Description: Goal Description: Pt to be able to safely transfer with least amount of assistance to demonstrate decreased need for caregiver assistance and ease with home transfers. Disciplines: PT Outcomes Date/Time User Outcome 12/06/23 1124 Chelita Gray PT Completed 12/05/23 1356 Chelita Gray PT Progressing Goal note from Hospital Encounter 10/16/2023 by Chelita Gray PT Evaluation of progress towards goal: SBA Principal Problem: Primary osteoarthritis of right knee Active Problems: Hypertension Hyperlipidemia Hyponatremia Images from the original note were not included. DISCHARGE PLANNING NOTE Follow-up Discharge Planning Progress Note Per RN during discharge transition rounds, barriers to discharge are: None Discharge Plan: DC to home with [facility]. RN to hard fax CRF. Services Requested: Services Requested Discharge Disposition: Home with home health services Facility/Service Name: [facility] Facility/Service Fax number: [phone] Facility/Service Phone Number: [phone] Does the patient need discharge transportation arranged?: No (Daughter to take patient home.) Patient choice offered: Yes List Provided: Yes [facility] List Provided: Home Care, Custodial Facility Initial DC Assessment Completed: Yes DC Planning Complete Discharge Milestones: Yes Patient Goals: Patient/Caregiver Goals Patient/Caregiver Goals: Home with Home Care Goals: Goals home with HHC and [facility] SNF (pt-stated) Evaluation of progress towards goal: awaiting PT/OT evaluation. Daughter at bedside and plans to stay with patient until Saturday. Updated goal: DC to home tomorrow with [facility] home therapy and [facility]. SABINO Jo, 12/05/2023, 4:28 PM Physical Therapy Treatment Discharge Recommendations PT Recommendations: Home Home Recommendations: Intermittent caregiver support for: Post Discharge Therapy Recommendations: Home Physical Therapy 6 Clicks: Basic Mobility Turning from your back to your side while in a flat bed without using bed rails?: None Moving from lying on your back to sitting on side of flat bed without using bed rails?: None Moving to and from bed to a chair (including w/c)?: A little Standing up from a chair using your arms (e.g. w/c or bedside chair)?: None To walk in hospital room?: A little Climbing 3-5 steps with a railing?: A lot Scoring 6 Clicks: Basic Mobility Raw Score: 20 CMS G Code Modifier: CJ Therapy Plan Need for skilled Physical Therapy to address deficits in functional mobility due to a status decline resulting from S/P R TKA. Patient Response to Treatment: Progressing toward goals Assessment Patient Assessment Patient Response to Treatment: Progressing toward goals Visit RN Communication: Yes Medical Record Reviewed: Yes PT Type of Visit: Treatment Precautions Activity: Ok to treat per RN Equipment: rolling walker, nonskid socks, IV, gait belt Weight Bearing Status: WBAT R LE Telemetry/Occ Med Physician: No Other: S/P R TKA Pain Assessment Pain Assessment: 0-10 Pain Score: 7 Pain Type: Surgical pain Pain Location: Knee Pain Orientation: Right Pain Intervention(s): Rest, Cold applied Response to Interventions: Pain improved Cognition Orientation Level: Oriented X4 Bed Mobility Supine to Sit: Stand by assist Sit to Supine: Stand by assist Transfers Sit to Stand: Standby assist Stand to Sit: Standby assist Gait Base of Support: Within Functional Limits Pattern: Decreased remy, Antalgic gait Gait Assistance: Contact guard assist Assistive Device: Rolling walker Gait Distance: 60ft Limiting Factors to Gait: Weakness, Pain 2 Turns: Yes Balance Sitting Balance: Static: Good Sitting Balance: Dynamic: Good Standing Balance: Static: Fair Standing Balance: Dynamic: Fair 12/06/23 0948 TKA TKA exercises performed? Yes Ankle pumps 10 Gluteal sets 10 Quad sets 10 Heel slides 10 Hip abduction 10 Other Exercises as above to improve strength for ease with walking and transfers. Activity Tolerance Endurance: Tolerates <30 minutes activity WITHOUT vital sign changes Plan Physical Therapy Care Plan Physical Therapy Care Plan (Active) Template: PT - Physical Therapy Problem: Activity Tolerance Dates: Start: 12/05/23 Disciplines: PT Goal: Tolerate 30 minutes of activity WITH rest breaks Dates: Start: 12/05/23 Expected End: 12/14/23 Description: Goal Description: Disciplines: PT Outcomes Date/Time User Outcome 12/06/23 1124 Chelita Gray, PT Progressing Goal note from Hospital Encounter 10/16/2023 by Chelita Gray PT Evaluation of progress towards goal: tolerated increased activity today Problem: Gait Dates: Start: 12/05/23 Disciplines: PT Goal: Patient will perform gait with Stand By Assist Dates: Start: 12/05/23 Expected End: 12/14/23 Description: Pt to be able to ambulate 200ft with walker to be able to safely manage household distances at discharge. Disciplines: PT Outcomes Date/Time User Outcome 12/06/23 1124 Chelita Grya, PT Progressing 12/05/23 1356 Chelita Gray PT Not Progressing Goal note from Hospital Encounter 10/16/2023 by Chelita Gray, PT Evaluation of progress towards goal: 60ft with walker and SBA Problem: Standing Balance Dates: Start: 12/05/23 Disciplines: PT Goal: Improve balance to good Dates: Start: 12/05/23 Expected End: 12/14/23 Description: Static Dynamic Pt to have balance of good in order to decrease risk of falls at discharge. Disciplines: PT Outcomes Date/Time User Outcome 12/06/23 1124 Chelita Gray, PT Progressing 12/05/23 1356 Chelita Gray PT Progressing Goal note from Hospital Encounter 10/16/2023 by Chelita Gray PT Evaluation of progress towards goal: fair Physical Therapy Care Plan (Resolved) Template: PT - Physical Therapy Problem: Bed Mobility Dates: Start: 12/05/23 Resolved: 12/06/23 Disciplines: PT Goal: Patient will perform bed mobility with Stand By Assist (Resolved) Dates: Start: 12/05/23 Expected End: 12/14/23 Resolved: 12/06/23 Description: Goal Description: Pt to perform bed mobility in order to be able to decrease risk of further skin breakdown. Disciplines: PT Outcomes Date/Time User Outcome 12/06/23 1124 Chelita Gray, PT Completed 12/05/23 1356 Chelita Gray PT Progressing Goal note from Hospital Encounter 10/16/2023 by Chelita Gray PT Evaluation of progress towards goal: SBA Problem: Transfers Dates: Start: 12/05/23 Resolved: 12/06/23 Disciplines: PT Goal: Patient will perform transfers with Stand By Assist (Resolved) Dates: Start: 12/05/23 Expected End: 12/14/23 Resolved: 12/06/23 Description: Goal Description: Pt to be able to safely transfer with least amount of assistance to demonstrate decreased need for caregiver assistance and ease with home transfers. Disciplines: PT Outcomes Date/Time User Outcome 12/06/23 1124 Chelita Gray, PT Completed 12/05/23 1356 Chelita Gray PT Progressing Goal note from Hospital Encounter 10/16/2023 by Chelita Gray PT Evaluation of progress towards goal: SBA Principal Problem: Primary osteoarthritis of right knee Active Problems: Hypertension Hyperlipidemia Hyponatremia Problem: Pain Goal: Patient goal is pain score less than 4, able to rest, and participant in treatment plan as appropriate Description: INTERVENTIONS: 1. Encourage patient or legal shared services representative to report early pain and ask for pain medicine when needed 2. Assess pain using appropriate pain scale and include the scale used when documenting 3. Administer analgesics based on type and severity of pain and evaluate response within appropriate time frame 4. Implement non-pharmacological measures as appropriate and evaluate response 5. Consider cultural and social influences on pain and pain management 6. Notify LIP if interventions ineffective or patient reports new pain 7. Monitor vital signs including pulse ox, end-tidal CO2 based on pain intervention 8. Reassess pain per policy 9. Teach patient or legal shared services representative interventions for comforting Outcome: Progressing Note: Evaluation of progress towards goal: Patient agrees to notify the nurse with any sudden change / increase in pain. Problem: Safety Goal: Patient will be injury free during hospitalization Description: INTERVENTIONS: 1. Assess patient's risk for falls and implement fall prevention plan of care per policy 2. Provide and maintain a safe environment 3. Proper use of double Identifiers 4. Medication administration using the 5 rights 5. Hand hygiene 6. Specimens are labeled at the bedside 7. Instruct patient/ patient shared services representative about use of safety devices 8. Include patient/ patient shared services representative in decisions related to safety Outcome: Progressing Note: Evaluation of progress towards goal: Patient will remain safe and free from injury during hospitalization. Problem: Moderate - High Risk Fall Score Description: Pablo Fall Score of =/> 25 or indicated by [facility] Assessment Goal: Patient should be free from fall Description: Interventions: 1. [place] to environment 2. Hourly rounds addressing the 4 P's (Pain, Positioning, Possessions, Potty) 3. Clear area of hazards (spills, clutter, electrical cords, unnecessary equipment) 4. Place equipment (bed & TV controls, call light, phone, urinal) within reach 5. Encourage patient to wear glasses and hearing aides as appropriate 6. Maintain bed in lowest position 7. Lock wheels on bed/wheelchair 8. Provide adequate lighting, including night light 9. Assess need for additional bedding, food/fluids, pain med's prior to sleep/routinely 10. Provide gripper slippers or personal non-skid footwear 11. Teach patient and patient shared services representative to maintain environment for safety and engage in all aspects of fall prevention program 12. Remind patient to call for help before getting out of bed 13. Initiate bed/chair/exit alarms supportive devices as appropriate, (chair wedge, no-skid floor mat, raised edge mattress, hip protectors) 14. Locate patient bed assignment for optimal visualization 15. Evaluate and identify Safe Patient Handling Equipment needs 16. Provide supervision when out of bed or chair 17. Utilize gait belt as needed to assist with ambulation 18. Place adaptive equipment (cane, walker) within reach 19. Request patient shared services representative bring adaptive equipment/mobility aids from home or obtain and provide as needed 20. Consult pharmacy regarding effects of med's affecting mobility, cognition, and alternatives 21. Obtain physician order for PT if risk factors associated with mobility are present 22. Obtain physician order for OT as appropriate 23. Utilize diversional activities 24. Educate patient and patient shared services representative how to maintain a safe environment during visitation times (notify nurse prior to leaving bedside) 25. Consider appropriateness of medical or non-senior medical transcriptionist 26. Set up voiding schedule as appropriate (every 2 hours) Outcome: Progressing Note: Evaluation of progress towards goal: Patient will remain free from falls. Problem: Pain Goal: Patient goal is pain score less than 4, able to rest, and participant in treatment plan as appropriate Description: INTERVENTIONS: 1. Encourage patient or legal shared services representative to report early pain and ask for pain medicine when needed 2. Assess pain using appropriate pain scale and include the scale used when documenting 3. Administer analgesics based on type and severity of pain and evaluate response within appropriate time frame 4. Implement non-pharmacological measures as appropriate and evaluate response 5. Consider cultural and social influences on pain and pain management 6. Notify LIP if interventions ineffective or patient reports new pain 7. Monitor vital signs including pulse ox, end-tidal CO2 based on pain intervention 8. Reassess pain per policy 9. Teach patient or legal shared services representative interventions for comforting Outcome: Progressing Note: Evaluation of progress towards goal: pain improving with oxy and tylenol, continue comfort measures ET nurse note: ET seen patient for a Ray score of 18. Initial ET skin assessment completed. No skin abnormalities noted. Remaining pressure points clear. Skin protocols on chart. Continue to follow wound care order set and turn patient every 2 hours. No additional concerns at this time. Please consult Wound Care Services with any new skin concerns. 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 w/c or bedside chair)?: None To walk in hospital room?: A little Climbing 3-5 steps with a railing?: A lot Scoring 6 Clicks: Basic Mobility Raw Score: 20 CMS G Code Modifier: CJ Therapy Plan Need for skilled Physical Therapy to address deficits in functional mobility due to a status decline resulting from S/P R TKA on 12/04/[address] Bryant. PT Treatment/Interventions: Functional transfer training, LE strengthening/ROM, Endurance training, Balance, Stair training, Bed mobility, Gait training, Functional activities, Neuromuscular reeducation PT Frequency: Other (comment) (1-2x/day) PT Duration: 10 days Patient Response to Treatment: Progressing toward goals Assessment Patient Assessment Therapy Problem List: Abnormal posture, Decreased balance, Decreased endurance, Decreased mobility, Decreased safe judgement during ADL, Decreased LE ROM, Decreased LE strength Patient Response to Treatment: Progressing toward goals Mood/Affect: Appropriate for circumstances Rehab Prognosis: Good, With continued PT status post acute discharge Visit RN Communication: Yes Medical Record Reviewed: Yes PT Type of Visit: Treatment Precautions Activity: Ok to treat per Sarah MADRID Equipment: rolling walker, nonskid socks, IV, gait belt Weight Bearing Status: WBAT R LE Telemetry/Occ Med Physician: Yes Oxygen Used: room air Other: S/P R TKA Pain Assessment Pain Assessment: 0-10 Pain Score: 6 Pain Type: Acute pain Pain Location: Knee Pain Orientation: Right Pain Intervention(s): (RN issued medications prior to PT arrival) Home Living Type of Home: House Home Layout: One level Stairs to Enter: 0 Stairs in Home: 0 Bathroom Shower/Tub: Tub/shower unit Bathroom Toilet: Standard Bathroom Equipment: Grab bars in shower, Hand-held shower Bathroom Accessibility: Not accessible Home Equipment: Rolling walker, Cane Prior Function Lives With: Alone Receives Help From: Family Level of Mobility: Independent with ADLs and functional transfers or gait Homemaking Assistance: Independent Hearing / Speech / Vision Hearing: Within Functional Limits Speech: Within Functional Limits Current Vision: Wears glasses only for reading Cognition Orientation Level: Oriented X4 Bed Mobility Supine to Sit: Stand by assist Sit to Supine: Stand by assist Transfers Sit to Stand: Standby assist Stand to Sit: Standby assist Bed to Chair: Contact guard assist, Verbal cues Other: increased time for transfers, switches hand placement a few times before standing Gait Base of Support: Within Functional Limits Pattern: Decreased remy, Antalgic gait Gait Assistance: Contact guard assist Assistive Device: Rolling walker Gait Distance: 40ft Limiting Factors to Gait: Weakness, Pain 2 Turns: Yes Balance Sitting Balance: Static: Good Sitting Balance: Dynamic: Good Standing Balance: Static: Fair Standing Balance: Dynamic: Fair RLE Assessment: (3-/5) LLE Assessment: (4-/5) Activity Tolerance Endurance: Tolerates <30 minutes activity WITHOUT vital sign changes Plan Physical Therapy Care Plan Physical Therapy Care Plan (Active) Template: PT - Physical Therapy Problem: Activity Tolerance Dates: Start: 12/05/23 Disciplines: PT Goal: Tolerate 30 minutes of activity WITH rest breaks Dates: Start: 12/05/23 Expected End: 12/14/23 Description: Goal Description: Disciplines: PT Problem: Bed Mobility Dates: Start: 12/05/23 Disciplines: PT Goal: Patient will perform bed mobility with Stand By Assist Dates: Start: 12/05/23 Expected End: 12/14/23 Description: Goal Description: Pt to perform bed mobility in order to be able to decrease risk of further skin breakdown. Disciplines: PT Outcomes Date/Time User Outcome 12/05/23 1356 Chelita Gray PT Progressing Goal note from Hospital Encounter 10/16/2023 by Chelita Gray, PT Evaluation of progress towards goal: SBA for sit to supine Problem: Gait Dates: Start: 12/05/23 Disciplines: PT Goal: Patient will perform gait with Stand By Assist Dates: Start: 12/05/23 Expected End: 12/14/23 Description: Pt to be able to ambulate 200ft with walker to be able to safely manage household distances at discharge. Disciplines: PT Outcomes Date/Time User Outcome 12/05/23 1356 Chelita Gray PT Not Progressing Goal note from Hospital Encounter 10/16/2023 by Chelita Gray PT Evaluation of progress towards goal: ambulated 40ft with walker and CGA Problem: Standing Balance Dates: Start: 12/05/23 Disciplines: PT Goal: Improve balance to good Dates: Start: 12/05/23 Expected End: 12/14/23 Description: Static Dynamic Pt to have balance of good in order to decrease risk of falls at discharge. Disciplines: PT Outcomes Date/Time User Outcome 12/05/23 1356 Chelita Gray PT Progressing Goal note from Hospital Encounter 10/16/2023 by Chelita Gray PT Evaluation of progress towards goal: fair with walker Problem: Transfers Dates: Start: 12/05/23 Disciplines: PT Goal: Patient will perform transfers with Stand By Assist Dates: Start: 12/05/23 Expected End: 12/14/23 Description: Goal Description: Pt to be able to safely transfer with least amount of assistance to demonstrate decreased need for caregiver assistance and ease with home transfers. Disciplines: PT Outcomes Date/Time User Outcome 12/05/23 1356 Chelita Gray PT Progressing Goal note from Hospital Encounter 10/16/2023 by Chelita Gray PT Evaluation of progress towards goal: CGA/SBA Physical Therapy Care Plan (Resolved) There are no resolved problems. Principal Problem: Primary osteoarthritis of right knee Active Problems: Hypertension Hyperlipidemia Hyponatremia DISCHARGE PLANNING NOTE Referral sent to [address]- [place] (P# ; F# ); [facility] (P# [phone] ; F# [phone]), [facility] in [place], [place] (P# ; F# ) and [facility] ([place]- P# ; F# ) ([place], [place] P# ; F#) Images from the original note were not included. DISCHARGE PLANNING NOTE Informed pt will not DC today, likely tomorrow. Spoke to pt and dtr. Hilario at bedside regarding DC plan and discussed per PTChelita he does not meet snf criteria, They agree to home care and provided 3 choices: [address] (cannot accept) [facility] (can accept but cannot use with [facility] due to no contract) [facility].(Has contract with [facility] and can accept pt) Referral process discussed and questions answered. [facility] to send [facility] care referrals. The pt will require home care referral for RN and aide services covered under his insurance and he will get [facility] PT at home until able to go outpatient. Will f/u with pt and dtr when home care has been arranged. Spoke with Hermila with [facility] who informed that [facility] would have to be used for home care to provide the RN and aide services in order for [facility] to provide the home therapy. They have a contract with them and cannot use [facility] or [facility]. SABINO Jo, 12/05/2023, 4:22 PM Services Requested: Services Requested Discharge Disposition: Home with home health services Facility/Service Name: [facility] Facility/Service Fax number: [phone] Facility/Service Phone Number: [phone] Does the patient need discharge transportation arranged?: No (Daughter to take patient home.) Patient choice offered: Yes List Provided: Yes [facility] List Provided: Home Care, Custodial Facility Initial DC Assessment Completed: Yes DC Planning Complete Discharge Milestones: Yes Patient Goals: Patient/Caregiver Goals Patient/Caregiver Goals: Home with Home Care Goals: Goals home with HHC and [facility] SNF (pt-stated) Evaluation of progress towards goal: awaiting PT/OT evaluation. Daughter at bedside and plans to stay with patient until Saturday. Updated goal: DC to home tomorrow with [facility] therapy and [facility]. SABINO Jo, 12/05/2023, 4:28 PM Problem: Pain Goal: Patient goal is pain score less than 4, able to rest, and participant in treatment plan as appropriate Description: INTERVENTIONS: 1. Encourage patient or legal shared services representative to report early pain and ask for pain medicine when needed 2. Assess pain using appropriate pain scale and include the scale used when documenting 3. Administer analgesics based on type and severity of pain and evaluate response within appropriate time frame 4. Implement non-pharmacological measures as appropriate and evaluate response 5. Consider cultural and social influences on pain and pain management 6. Notify LIP if interventions ineffective or patient reports new pain 7. Monitor vital signs including pulse ox, end-tidal CO2 based on pain intervention 8. Reassess pain per policy 9. Teach patient or legal shared services representative interventions for comforting Outcome: Progressing Note: Evaluation of progress towards goal: Continue to assess for pain and address accordingly Problem: Safety Goal: Patient will be injury free during hospitalization Description: INTERVENTIONS: 1. Assess patient's risk for falls and implement fall prevention plan of care per policy 2. Provide and maintain a safe environment 3. Proper use of double Identifiers 4. Medication administration using the 5 rights 5. Hand hygiene 6. Specimens are labeled at the bedside 7. Instruct patient/ patient shared services representative about use of safety devices 8. Include patient/ patient shared services representative in decisions related to safety Outcome: Progressing Note: Evaluation of progress towards goal: No falls. Double identifiers used. Med administration using 5 rights. Hand hygiene maintained. Specimens labeled at bedside. Problem: Infection Goal: Absence of infection during hospitalization Description: Interventions: 1. Assess and monitor for signs and symptoms of infection 2. Monitor lab/diagnostic results 3. Monitor all insertion sites i.e., indwelling lines, tubes and drains 4. Monitor endotracheal (as able) and nasal secretions for changes in amount and color 5. Administer medications as ordered 6. Instruct and encourage patient and family to use good hand hygiene technique 7. Identify and instruct patient/patient shared services representative in use of appropriate isolation precautions for identified infection/symptoms 8. Provide and discuss with patient/patient shared services representative on educational MDRO sheet 9. Encourage and monitor nutritional status daily and consult tool and die maker level five if indicated 10. Implement neutropenic guidelines as needed 11. Review exposure to history of communicable disease and recent travel history on admission 12. Encourage annual influenza vaccine 13. Encourage pneumonia vaccine Outcome: Progressing Note: Evaluation of progress towards goal: Continue to assess for s/s of infection and address accordingly Problem: Knowledge Deficit Goal: Patient/patient shared services representative demonstrates understanding of disease process, treatment plan, medications, and discharge instructions Description: INTERVENTIONS 1. Complete learning assessment and assess knowledge base 2. Provide teaching at level of understanding 3. Provide teaching via preferred learning method(s) Outcome: Progressing Note: Evaluation of progress towards goal: Discussed POC for HS. Questions answered. States an understanding. Review as needed. Problem: Discharge Planning Goal: Discharge to post-acute care, other facility, or home with appropriate resources Description: Patient's goal is: INTERVENTIONS 1. Conduct assessment to determine patient/family and health care team treatment goals, and need for post-acute services based on payer coverage, community resources, and patient preferences, and barriers to discharge 2. Coordinate with Social work, Care Navigation, and Utilization Review to arrange appropriate level of services according to patient's needs based on patient preference and payer coverage in collaboration with the physician and health care team 3. Address psychosocial, clinical, and financial barriers to discharge as identified in assessment in conjunction with the patient/family and health care team 4. Consult appropriate ancillary services (i.e.. PT/OT/ST, etc) as needed 5. Communicate with and update the patient/family, physician, and health care team regarding progress on the discharge plan 6. Identify discharge learning needs (meds, wound care, etc). 7. Arrange for needed discharge transportation as appropriate Outcome: Progressing Note: Evaluation of progress towards goal: Continue to collaborate with all services and work towards discharge Problem: Moderate - High Risk Fall Score Description: Pablo Fall Score of =/> 25 or indicated by [facility] Assessment Goal: Patient should be free from fall Description: Interventions: 1. [place] to environment 2. Hourly rounds addressing the 4 P's (Pain, Positioning, Possessions, Potty) 3. Clear area of hazards (spills, clutter, electrical cords, unnecessary equipment) 4. Place equipment (bed & TV controls, call light, phone, urinal) within reach 5. Encourage patient to wear glasses and hearing aides as appropriate 6. Maintain bed in lowest position 7. Lock wheels on bed/wheelchair 8. Provide adequate lighting, including night light 9. Assess need for additional bedding, food/fluids, pain med's prior to sleep/routinely 10. Provide gripper slippers or personal non-skid footwear 11. Teach patient and patient shared services representative to maintain environment for safety and engage in all aspects of fall prevention program 12. Remind patient to call for help before getting out of bed 13. Initiate bed/chair/exit alarms supportive devices as appropriate, (chair wedge, no-skid floor mat, raised edge mattress, hip protectors) 14. Locate patient bed assignment for optimal visualization 15. Evaluate and identify Safe Patient Handling Equipment needs 16. Provide supervision when out of bed or chair 17. Utilize gait belt as needed to assist with ambulation 18. Place adaptive equipment (cane, walker) within reach 19. Request patient shared services representative bring adaptive equipment/mobility aids from home or obtain and provide as needed 20. Consult pharmacy regarding effects of med's affecting mobility, cognition, and alternatives 21. Obtain physician order for PT if risk factors associated with mobility are present 22. Obtain physician order for OT as appropriate 23. Utilize diversional activities 24. Educate patient and patient shared services representative how to maintain a safe environment during visitation times (notify nurse prior to leaving bedside) 25. Consider appropriateness of medical or non-senior medical transcriptionist 26. Set up voiding schedule as appropriate (every 2 hours) Outcome: Progressing Note: Evaluation of progress towards goal: Hourly rounds. Area clear of hazards. Call light in reach. Non-skid footwear on. Bed wheels locked and bed in lowest position. No falls. Problem: Potential for Compromised Skin Integrity Goal: Skin integrity is maintained or improved Description: Patient's goal is: INTERVENTIONS 1. Perform initial skin assessment on admission and as needed 2. Turn patient every 2 hours and PRN 3. Relieve pressure to bony prominences 4. Avoid shearing 5. Keep skin clean and dry 6. Alternate a full bath with partial baths for elderly 7. Apply lotion/moisturizer on skin 8. Monitor patient's hygiene practices 9. Float heels 10. Collaborate with interdisciplinary team and initiate plans and interventions as needed Outcome: Progressing Note: Evaluation of progress towards goal: Cont skin interventions and address skin issues accordingly Goal: Patient's nutritional intake is adequate Description: Patient's goal is: INTERVENTIONS 1. Assess and monitor food intake and supplements, patient food preferences, nausea, vomiting, labs, oral cavity (gums, teeth, tongue, mucosa), proper denture fit, and cultural beliefs 2. Monitor for signs of hypoglycemia and hyperglycemia 3. Collaborate with interdisciplinary team and initiate plan and interventions as ordered 4. Monitor patient's weight 5. Assist patient with meals/food selection 6. Assist patient with eating 7. Allow adequate time for meals 8. Provide pleasant environment during mealtime 9. Increase social contact during mealtimes 10. Plan activities to conserve energy 11. Encourage/perform oral hygiene as appropriate 12. Encourage patient to take dietary supplement as ordered 13. Collaborate with clinical tool and die maker level five 14. Include patient/ patient's shared services representative in decisions related to nutrition Outcome: Progressing Note: Evaluation of progress towards goal: Continue to assess nutritional status and address accordingly. Will continue to maximize nutrition within ordered parameters Problem: Urinary Incontinence Goal: Perineal skin integrity is maintained or improved Description: INTERVENTIONS 1. Assess genitourinary system, perineal skin, labs (urinalysis), and history of incontinence to include past management, aggravating, and alleviating factors 2. Keep skin clean and dry 3. Apply skin protectant 4. Develop skin care regimen 5. Provide privacy when changing patients incontinence device to maintain their dignity 6. Consider placing an indwelling catheter 7. Collaborate with interdisciplinary team and initiate plans and interventions as needed Outcome: Progressing Note: Evaluation of progress towards goal: Skin clean and dry. Skin protectant as needed. [place] pads in place. Problem: Pain Goal: Patient goal is pain score less than 4, able to rest, and participant in treatment plan as appropriate Description: INTERVENTIONS: 1. Encourage patient or legal shared services representative to report early pain and ask for pain medicine when needed 2. Assess pain using appropriate pain scale and include the scale used when documenting 3. Administer analgesics based on type and severity of pain and evaluate response within appropriate time frame 4. Implement non-pharmacological measures as appropriate and evaluate response 5. Consider cultural and social influences on pain and pain management 6. Notify LIP if interventions ineffective or patient reports new pain 7. Monitor vital signs including pulse ox, end-tidal CO2 based on pain intervention 8. Reassess pain per policy 9. Teach patient or legal shared services representative interventions for comforting Outcome: Progressing Note: Evaluation of progress towards goal: pain responding to oxycodone and tylenol Images from the original note were not included. DISCHARGE PLANNING NOTE Discharge Planning Assessment Sonia Stauffer Admit Status: Observation Meet: Yes Readmission Risk: N/A. Date of Admission: 12/04/2023 GMLOS: Observation < 48 hours Target Discharge Date: 12/06/2023 Discharge Planning Assessment completed at bedside. Jet Operator identified self and role to the patient and patient's daughter. Patient is agreeable to the assessment and discussion of a safe discharge plan. 12/04/23 1514 Discharge Disposition Discharge Disposition Home with Self Care (Home with HHC and [facility] verses SNF) County Information County of Residence [place] Patient Information Primary Caregiver Self (Daughter is staying with patient through Saturday) Support System Immediate family;Neighbors Income Information Income Information Retired/Pension/Social Security Referral To Community Resources Denies needs Discharge Planning Living Arrangements Alone Support Systems Children;Family members;Neighbors Assistance Needed Patient states he has his walker. Patient states he has quick meals prepared for self at discharge. His daughter is going to stay withhim through Saturday. Patient will be alone on Saturday. They are cnsidering adding [facility] and [facility] to their [facility] therapy. Possible SNF also considered and will await PT/OT evaluation. Type of Residence Private residence Residence Accessibility Steps into home Number of Steps 2 Home Care Services No (Plans to have [facility] PT at home after discharge.) Community Agencies Currently Utilized None Established DME Comments Walker Patient expects to be discharged to: Home with HHC and [facility] verses SNF Does the patient need discharge transport arranged? No Services Requested Discharge Disposition: Home with home health services (Home with HHC and [facility] verses SNF) Does the patient need discharge transportation arranged?: No (Daughter to take patient home.) Patient choice offered: Yes List Provided: Yes CarePort List Provided: Home Care, Custodial Facility Initial DC Assessment Completed: Yes Pharmacy: [facility] in [place], [place] PCP: Transportation at Time of Discharge: Daughter Patient will make her own follow up appointments: yes Follow up appointment with Dr. Bryant already made. Patient Goals: Goals home with HHC and [facility] verses SNF (pt-stated) Evaluation of progress towards goal: awaiting PT/OT evaluation. Daughter at bedside and plans to stay with patient until Saturday. PT Recommends: Await assessment OT Recommends: Await assessment Home Health Care and Custodial Facility list was provided to patient with list creation in [facility] and filtered by insurance payor. Awaiting PT/OT assessment to see if patient qualifies for SNF. If patient qualifies for SNF this is patient and his daughter's first choice. If he doesn't qualify then the plan is to go home with [facility] and [facility] PT. Plan to prevent readmission: Home Health Care verses SNF. Follow up with Orthopedics. Patient/Family do not endorse any questions at this time. Patient Discharge Plan: Home with HHC and [facility] verses SNF. Await PT/OT assessment. - Edwina White RN 12/04/23 3:26 PM Problem: Safety Goal: Patient will be injury free during hospitalization Description: INTERVENTIONS: 1. Assess patient's risk for falls and implement fall prevention plan of care per policy 2. Provide and maintain a safe environment 3. Proper use of double Identifiers 4. Medication administration using the 5 rights 5. Hand hygiene 6. Specimens are labeled at the bedside 7. Instruct patient/ patient shared services representative about use of safety devices 8. Include patient/ patient shared services representative in decisions related to safety Outcome: Progressing Note: Evaluation of progress towards goal: Pt remains free from falls or accidental injury during stay. Fall prevention measures in place. Hourly rounding per RN and NA maintained. Problem: Discharge Planning Goal: Discharge to post-acute care, other facility, or home with appropriate resources Description: Patient's goal is: INTERVENTIONS 1. Conduct assessment to determine patient/family and health care team treatment goals, and need for post-acute services based on payer coverage, community resources, and patient preferences, and barriers to discharge 2. Coordinate with Social work, Care Navigation, and Utilization Review to arrange appropriate level of services according to patient's needs based on patient preference and payer coverage in collaboration with the physician and health care team 3. Address psychosocial, clinical, and financial barriers to discharge as identified in assessment in conjunction with the patient/family and health care team 4. Consult appropriate ancillary services (i.e.. PT/OT/ST, etc) as needed 5. Communicate with and update the patient/family, physician, and health care team regarding progress on the discharge plan 6. Identify discharge learning needs (meds, wound care, etc). 7. Arrange for needed discharge transportation as appropriate Outcome: Progressing Note: Evaluation of progress towards goal: Continue to assess for when appropriate. Summary: Right total knee Sonia Stauffer Date of : 1945 Date of Surgery: 12/04/2023 Preoperative diagnosis: Primary osteoarthritis right knee Postoperative diagnosis: Same Procedure: Right total knee arthroplasty Surgeon: Dakota Bryant DO Anesthesia: Anesthesiologist: Monico Ibanez DO DIRECTOR OF SOLUTIONS ARCHITECTURE: Rula Maya APRN-DIRECTOR OF SOLUTIONS ARCHITECTURE Regional, Monitored Anesthesia Care, Spinal OR staff: Motorcycle Racer Primary: Julissa Mcintosh RN Motorcycle Racer Relief: Arminda Ahumada RN Scrub Person: Tiff Layne CST; ST Edvin Culp Assistant: Lakesha Rowland Estimated blood loss: 150 mL Complications: None Findings: [id number] in all 3 compartments Procedure summary: After administration of anesthesia the right knee was prepped and draped in usual fashion a time-out was taken. A tourniquet was not inflated. An anterior medial parapatellar approach was utilized. The patella was retracted laterally the fat pad was excised patella was cut in line tendon to tendon it sized out to a 35 and was prepared with a peg drill. The knee was placed in flexion a step drill was inserted into the femur a distal cut was taken at 4 . Next an extramedullary cutting guide was secured to the tibia the knee was dislocated and a cut was taken perpendicular to the tibia all remnants of the meniscus were excised. The knee was placed in terminal extension in the knee was slightly tight. The knee was placed in flexion the knee seemed loose. The knee was placed back in flexion and an anterior reference Sizer was attached to the femur it sized out to an 8 a distal femoral cutting block was attached and a cut was taken. I then put trials on and rechecked again the knee was tight in extension loose in flexion so at this point I elected to recut the femur I took an additional 2 mm off the femur and re-did the chamfer cuts. This time I put the trials in and there was full range of motion the knee was balancing nicely however now it seems slightly loose both in flexion and extension. The patella was tracking midline. The components were pinned in place the collaterals were checked they were intact with the tibial trial pinned in place the knee was placed in flexion and the remaining components of the trials were removed the tibia was prepared with a drill and a broach. At this point the bone was washed with pulse lavage while the cement was being mixed. A size F tibial component was cemented into place and then the size 8 femoral component was cemented into place and then a provisional polyethylene trial spacer was inserted the knee was placed in terminal extension. Next the patella was washed and dried and the patella button was cemented into place a clamp was applied and this was left in place with the knee in extension and compression across the joint the old the cement was completely hardened Clamp was removed all the excess pieces of cement removed. I ultimately increase the spacer to a size 16 which produced excellent stability both in flexion and extension. The trial spacer was removed and a 16 medial constrained spacer was clicked into place it was snug and secure. I took the knee through range of motion patella was tracking midline there was 0-120 degrees of total motion. There was no instability. I soaked the knee in diluted Betadine then rinsed it I repaired the capsule with a 2. Ethibond 0 Vicryl and a 0 Stratafix running. Next I closed the fat subcutaneous layers with 0 Vicryl then skin clips superficially. [place] were applied. Sterile dressings were applied. documented in this encounter [facility] 12-06-2023 Progress note Formatting of t his note is different from the original. Images from the original note were not included. DISCHARGE PLANNING NOTE Follow-up Discharge Planning Progress Note Per RN during discharge transition rounds, barriers to discharge are: None Discharge Plan: DC to home with [facility]. RN to hard fax CRF. Services Requested: Services Requested Discharge Disposition: Home with home health services Facility/Service Name: [facility] Facility/Service Fax number: [phone] Facility/Service Phone Number: [phone] Does the patient need discharge transportation arranged?: No (Daughter to take patient home.) Patient choice offered: Yes List Provided: Yes CarePort List Provided: Home Care, Custodial Facility Initial DC Assessment Completed: Yes DC Planning Complete Discharge Milestones: Yes Patient Goals: Patient/Caregiver Goals Patient/Caregiver Goals: Home with Home Care Goals: Goals home with HHC and [facility] verses SNF (pt-stated) Evaluation of progress towards goal: awaiting PT/OT evaluation. Daughter at bedside and plans to stay with patient until Saturday. Updated goal: DC to home tomorrow with [facility] and [facility]. SABINO Jo, 12/05/2023, 4:28 PM [facility] 12-06-2023 Progress note Formatting of t his note is different from the original. Physical Therapy Treatment Discharge Recommendations PT Recommendations: Home Home Recommendations: Intermittent caregiver support for: Post Discharge Therapy Recommendations: Home Physical Therapy 6 Clicks: Basic Mobility Turning from your back to your side while in a flat bed without using bed rails?: None Moving from lying on your back to sitting on side of flat bed without using bed rails?: None Moving to and from bed to a chair (including w/c)?: A little Standing up from a chair using your arms (e.g. w/c or bedside chair)?: None To walk in hospital room?: A little Climbing 3-5 steps with a railing?: A lot Scoring 6 Clicks: Basic Mobility Raw Score: 20 CMS G Code Modifier: CJ Therapy Plan Need for skilled Physical Therapy to address deficits in functional mobility due to a status decline resulting from S/P R TKA. Patient Response to Treatment: Progressing toward goals Assessment Patient Assessment Patient Response to Treatment: Progressing toward goals Visit RN Communication: Yes Medical Record Reviewed: Yes PT Type of Visit: Treatment Precautions Activity: Ok to treat per RN Equipment: rolling walker, nonskid socks, IV, gait belt Weight Bearing Status: WBAT R LE Telemetry/Occ Med Physician: No Other: S/P R TKA Pain Assessment Pain Assessment: 0-10 Pain Score: 7 Pain Type: Surgical pain Pain Location: Knee Pain Orientation: Right Pain Intervention(s): Rest, Cold applied Response to Interventions: Pain improved Cognition Orientation Level: Oriented X4 Bed Mobility Supine to Sit: Stand by assist Sit to Supine: Stand by assist Transfers Sit to Stand: Standby assist Stand to Sit: Standby assist Gait Base of Support: Within Functional Limits Pattern: Decreased remy, Antalgic gait Gait Assistance: Contact guard assist Assistive Device: Rolling walker Gait Distance: 60ft Limiting Factors to Gait: Weakness, Pain 2 Turns: Yes Balance Sitting Balance: Static: Good Sitting Balance: Dynamic: Good Standing Balance: Static: Fair Standing Balance: Dynamic: Fair 12/06/23 0948 TKA TKA exercises performed? Yes Ankle pumps 10 Gluteal sets 10 Quad sets 10 Heel slides 10 Hip abduction 10 Other Exercises as above to improve strength for ease with walking and transfers. Activity Tolerance Endurance: Tolerates <30 minutes activity WITHOUT vital sign changes Plan Physical Therapy Care Plan Physical Therapy Care Plan (Active) Template: PT - Physical Therapy Problem: Activity Tolerance Dates: Start: 12/05/23 Disciplines: PT Goal: Tolerate 30 minutes of activity WITH rest breaks Dates: Start: 12/05/23 Expected End: 12/14/23 Description: Goal Description: Disciplines: PT Outcomes Date/Time User Outcome 12/06/23 1124 Chelita Gray, PT Progressing Goal note from Hospital Encounter 10/16/2023 by Chelita Gray, PT Evaluation of progress towards goal: tolerated increased activity today Problem: Gait Dates: Start: 12/05/23 Disciplines: PT Goal: Patient will perform gait with Stand By Assist Dates: Start: 12/05/23 Expected End: 12/14/23 Description: Pt to be able to ambulate 200ft with walker to be able to safely manage household distances at discharge. Disciplines: PT Outcomes Date/Time User Outcome 12/06/23 1124 Chelita Gray, PT Progressing 12/05/23 1356 Chelita Gray PT Not Progressing Goal note from Hospital Encounter 10/16/2023 by Chelita Gray, PT Evaluation of progress towards goal: 60ft with walker and SBA Problem: Standing Balance Dates: Start: 12/05/23 Disciplines: PT Goal: Improve balance to good Dates: Start: 12/05/23 Expected End: 12/14/23 Description: Static Dynamic Pt to have balance of good in order to decrease risk of falls at discharge. Disciplines: PT Outcomes Date/Time User Outcome 12/06/23 1124 Chelita Gray, PT Progressing 12/05/23 1356 Chelita Gray PT Progressing Goal note from Hospital Encounter 10/16/2023 by Chelita Gray PT Evaluation of progress towards goal: fair Physical Therapy Care Plan (Resolved) Template: PT - Physical Therapy Problem: Bed Mobility Dates: Start: 12/05/23 Resolved: 12/06/23 Disciplines: PT Goal: Patient will perform bed mobility with Stand By Assist (Resolved) Dates: Start: 12/05/23 Expected End: 12/14/23 Resolved: 12/06/23 Description: Goal Description: Pt to perform bed mobility in order to be able to decrease risk of further skin breakdown. Disciplines: PT Outcomes Date/Time User Outcome 12/06/23 1124 Chelita Gray, PT Completed 12/05/23 1356 Chelita Gray PT Progressing Goal note from Hospital Encounter 10/16/2023 by Chelita Gray PT Evaluation of progress towards goal: SBA Problem: Transfers Dates: Start: 12/05/23 Resolved: 12/06/23 Disciplines: PT Goal: Patient will perform transfers with Stand By Assist (Resolved) Dates: Start: 12/05/23 Expected End: 12/14/23 Resolved: 12/06/23 Description: Goal Description: Pt to be able to safely transfer with least amount of assistance to demonstrate decreased need for caregiver assistance and ease with home transfers. Disciplines: PT Outcomes Date/Time User Outcome 12/06/23 1124 Chelita Gray, PT Completed 12/05/23 1356 Chelita Gray PT Progressing Goal note from Hospital Encounter 10/16/2023 by Chelita Gray PT Evaluation of progress towards goal: SBA Principal Problem: Primary osteoarthritis of right knee Active Problems: Hypertension Hyperlipidemia Hyponatremia [facility] [employer] [facility] 12-06-2023 Plan of care note Problem: Pain Goal: Patient goal is pain score less than 4, able to rest, and participant in treatment plan as appropriate Description: INTERVENTIONS: 1. Encourage patient or legal shared services representative to report early pain and ask for pain medicine when needed 2. Assess pain using appropriate pain scale and include the scale used when documenting 3. Administer analgesics based on type and severity of pain and evaluate response within appropriate time frame 4. Implement non-pharmacological measures as appropriate and evaluate response 5. Consider cultural and social influences on pain and pain management 6. Notify LIP if interventions ineffective or patient reports new pain 7. Monitor vital signs including pulse ox, end-tidal CO2 based on pain intervention 8. Reassess pain per policy 9. Teach patient or legal shared services representative interventions for comforting Outcome: Progressing Note: Evaluation of progress towards goal: Patient agrees to notify the nurse with any sudden change / increase in pain. Problem: Safety Goal: Patient will be injury free during hospitalization Description: INTERVENTIONS: 1. Assess patient's risk for falls and implement fall prevention plan of care per policy 2. Provide and maintain a safe environment 3. Proper use of double Identifiers 4. Medication administration using the 5 rights 5. Hand hygiene 6. Specimens are labeled at the bedside 7. Instruct patient/ patient shared services representative about use of safety devices 8. Include patient/ patient shared services representative in decisions related to safety Outcome: Progressing Note: Evaluation of progress towards goal: Patient will remain safe and free from injury during hospitalization. Problem: Moderate - High Risk Fall Score Description: Pablo Fall Score of =/> 25 or indicated by [facility] Assessment Goal: Patient should be free from fall Description: Interventions: 1. [place] to environment 2. Hourly rounds addressing the 4 P's (Pain, Positioning, Possessions, Potty) 3. Clear area of hazards (spills, clutter, electrical cords, unnecessary equipment) 4. Place equipment (bed & TV controls, call light, phone, urinal) within reach 5. Encourage patient to wear glasses and hearing aides as appropriate 6. Maintain bed in lowest position 7. Lock wheels on bed/wheelchair 8. Provide adequate lighting, including night light 9. Assess need for additional bedding, food/fluids, pain med's prior to sleep/routinely 10. Provide gripper slippers or personal non-skid footwear 11. Teach patient and patient shared services representative to maintain environment for safety and engage in all aspects of fall prevention program 12. Remind patient to call for help before getting out of bed 13. Initiate bed/chair/exit alarms supportive devices as appropriate, (chair wedge, no-skid floor mat, raised edge mattress, hip protectors) 14. Locate patient bed assignment for optimal visualization 15. Evaluate and identify Safe Patient Handling Equipment needs 16. Provide supervision when out of bed or chair 17. Utilize gait belt as needed to assist with ambulation 18. Place adaptive equipment (cane, walker) within reach 19. Request patient shared services representative bring adaptive equipment/mobility aids from home or obtain and provide as needed 20. Consult pharmacy regarding effects of med's affecting mobility, cognition, and alternatives 21. Obtain physician order for PT if risk factors associated with mobility are present 22. Obtain physician order for OT as appropriate 23. Utilize diversional activities 24. Educate patient and patient shared services representative how to maintain a safe environment during visitation times (notify nurse prior to leaving bedside) 25. Consider appropriateness of medical or non-senior medical transcriptionist 26. Set up voiding schedule as appropriate (every 2 hours) Outcome: Progressing Note: Evaluation of progress towards goal: Patient will remain free from falls. [facility] [employer] [facility] 12-06-2023 Plan of care note Problem: Pain Goal: Patient goal is pain score less than 4, able to rest, and participant in treatment plan as appropriate Description: INTERVENTIONS: 1. Encourage patient or legal shared services representative to report early pain and ask for pain medicine when needed 2. Assess pain using appropriate pain scale and include the scale used when documenting 3. Administer analgesics based on type and severity of pain and evaluate response within appropriate time frame 4. Implement non-pharmacological measures as appropriate and evaluate response 5. Consider cultural and social influences on pain and pain management 6. Notify LIP if interventions ineffective or patient reports new pain 7. Monitor vital signs including pulse ox, end-tidal CO2 based on pain intervention 8. Reassess pain per policy 9. Teach patient or legal shared services representative interventions for comforting Outcome: Progressing Note: Evaluation of progress towards goal: pain improving with oxy and tylenol, continue comfort measures [facility] 12-05-2023 Progress note Formatting of t his note might be different from the original. ET nurse note: ET seen patient for a Ray score of 18. Initial ET skin assessment completed. No skin abnormalities noted. Remaining pressure points clear. Skin protocols on chart. Continue to follow wound care order set and turn patient every 2 hours. No additional concerns at this time. Please consult Wound Care Services with any new skin concerns. [facility] 12-05-2023 Progress note Formatting of t his note is different from the original. 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 w/c or bedside chair)?: None To walk in hospital room?: A little Climbing 3-5 steps with a railing?: A lot Scoring 6 Clicks: Basic Mobility Raw Score: 20 CMS G Code Modifier: CJ Therapy Plan Need for skilled Physical Therapy to address deficits in functional mobility due to a status decline resulting from S/P R TKA on 12/04/[address] Bryant. PT Treatment/Interventions: Functional transfer training, LE strengthening/ROM, Endurance training, Balance, Stair training, Bed mobility, Gait training, Functional activities, Neuromuscular reeducation PT Frequency: Other (comment) (1-2x/day) PT Duration: 10 days Patient Response to Treatment: Progressing toward goals Assessment Patient Assessment Therapy Problem List: Abnormal posture, Decreased balance, Decreased endurance, Decreased mobility, Decreased safe judgement during ADL, Decreased LE ROM, Decreased LE strength Patient Response to Treatment: Progressing toward goals Mood/Affect: Appropriate for circumstances Rehab Prognosis: Good, With continued PT status post acute discharge Visit RN Communication: Yes Medical Record Reviewed: Yes PT Type of Visit: Treatment Precautions Activity: Ok to treat per Sarah MADRID Equipment: rolling walker, nonskid socks, IV, gait belt Weight Bearing Status: WBAT R LE Telemetry/Occ Med Physician: Yes Oxygen Used: room air Other: S/P R TKA Pain Assessment Pain Assessment: 0-10 Pain Score: 6 Pain Type: Acute pain Pain Location: Knee Pain Orientation: Right Pain Intervention(s): (RN issued medications prior to PT arrival) Home Living Type of Home: House Home Layout: One level Stairs to Enter: 0 Stairs in Home: 0 Bathroom Shower/Tub: Tub/shower unit Bathroom Toilet: Standard Bathroom Equipment: Grab bars in shower, Hand-held shower Bathroom Accessibility: Not accessible Home Equipment: Rolling walker, Cane Prior Function Lives With: Alone Receives Help From: Family Level of Mobility: Independent with ADLs and functional transfers or gait Homemaking Assistance: Independent Hearing / Speech / Vision Hearing: Within Functional Limits Speech: Within Functional Limits Current Vision: Wears glasses only for reading Cognition Orientation Level: Oriented X4 Bed Mobility Supine to Sit: Stand by assist Sit to Supine: Stand by assist Transfers Sit to Stand: Standby assist Stand to Sit: Standby assist Bed to Chair: Contact guard assist, Verbal cues Other: increased time for transfers, switches hand placement a few times before standing Gait Base of Support: Within Functional Limits Pattern: Decreased remy, Antalgic gait Gait Assistance: Contact guard assist Assistive Device: Rolling walker Gait Distance: 40ft Limiting Factors to Gait: Weakness, Pain 2 Turns: Yes Balance Sitting Balance: Static: Good Sitting Balance: Dynamic: Good Standing Balance: Static: Fair Standing Balance: Dynamic: Fair RLE Assessment: (3-/5) LLE Assessment: (4-/5) Activity Tolerance Endurance: Tolerates <30 minutes activity WITHOUT vital sign changes Plan Physical Therapy Care Plan Physical Therapy Care Plan (Active) Template: PT - Physical Therapy Problem: Activity Tolerance Dates: Start: 12/05/23 Disciplines: PT Goal: Tolerate 30 minutes of activity WITH rest breaks Dates: Start: 12/05/23 Expected End: 12/14/23 Description: Goal Description: Disciplines: PT Problem: Bed Mobility Dates: Start: 12/05/23 Disciplines: PT Goal: Patient will perform bed mobility with Stand By Assist Dates: Start: 12/05/23 Expected End: 12/14/23 Description: Goal Description: Pt to perform bed mobility in order to be able to decrease risk of further skin breakdown. Disciplines: PT Outcomes Date/Time User Outcome 12/05/23 135Bam Gray, PT Progressing Goal note from Hospital Encounter 10/16/2023 by Chelita Gray, PT Evaluation of progress towards goal: SBA for sit to supine Problem: Gait Dates: Start: 12/05/23 Disciplines: PT Goal: Patient will perform gait with Stand By Assist Dates: Start: 12/05/23 Expected End: 12/14/23 Description: Pt to be able to ambulate 200ft with walker to be able to safely manage household distances at discharge. Disciplines: PT Outcomes Date/Time User Outcome 12/05/23 135Bam Gray PT Not Progressing Goal note from Hospital Encounter 10/16/2023 by Chelita Gray, PT Evaluation of progress towards goal: ambulated 40ft with walker and CGA Problem: Standing Balance Dates: Start: 12/05/23 Disciplines: PT Goal: Improve balance to good Dates: Start: 12/05/23 Expected End: 12/14/23 Description: Static Dynamic Pt to have balance of good in order to decrease risk of falls at discharge. Disciplines: PT Outcomes Date/Time User Outcome 12/05/23 1356 Chelita Gray, PT Progressing Goal note from Hospital Encounter 10/16/2023 by Chelita Gray, PT Evaluation of progress towards goal: fair with walker Problem: Transfers Dates: Start: 12/05/23 Disciplines: PT Goal: Patient will perform transfers with Stand By Assist Dates: Start: 12/05/23 Expected End: 12/14/23 Description: Goal Description: Pt to be able to safely transfer with least amount of assistance to demonstrate decreased need for caregiver assistance and ease with home transfers. Disciplines: PT Outcomes Date/Time User Outcome 12/05/23 1356 Chelita Gray PT Progressing Goal note from Hospital Encounter 10/16/2023 by Chelita Gray PT Evaluation of progress towards goal: CGA/SBA Physical Therapy Care Plan (Resolved) There are no resolved problems. Principal Problem: Primary osteoarthritis of right knee Active Problems: Hypertension Hyperlipidemia [facility]onatremia [facility] Progress note Formatting of t his note might be different from the original. DISCHARGE PLANNING NOTE Referral sent to [address]- [place] (P# ; F# ); [facility] (P# [phone] ; F# [phone]), [facility] in [place], [place] (P# ; F# ) and [facility] ([place]- P# ; F# ) ([place], [place] P# ; F#) [facility] 12-05-2023 Progress note Formatting of t his note is different from the original. Images from the original note were not included. DISCHARGE PLANNING NOTE Informed pt will not DC today, likely tomorrow. Spoke to pt and dtr. Hilario at bedside regarding DC plan and discussed per PTChelita he does not meet snf criteria, They agree to home care and provided 3 choices: [address] (cannot accept) [facility] (can accept but cannot use with [facility] due to no contract) [facility].(Has contract with [facility] and can accept pt) Referral process discussed and questions answered. [facility]ed to [facility] to send home care referrals. The pt will require home care referral for RN and aide services covered under his insurance and he will get [facility] PT at home until able to go outpatient. Will f/u with pt and dtr when home care has been arranged. Spoke with Hermila with [facility] who informed that [facility] would have to be used for home care to provide the RN and aide services in order for [facility] to provide the home therapy. They have a contract with them and cannot use [facility] or [facility]. SABINO Jo, 12/05/2023, 4:22 PM Services Requested: Services Requested Discharge Disposition: Home with home health services Facility/Service Name: [facility] Facility/Service Fax number: [phone] Facility/Service Phone Number: P:[phone] Does the patient need discharge transportation arranged?: No (Daughter to take patient home.) Patient choice offered: Yes List Provided: Yes [facility] List Provided: Home Care, Custodial Facility Initial DC Assessment Completed: Yes DC Planning Complete Discharge Milestones: Yes Patient Goals: Patient/Caregiver Goals Patient/Caregiver Goals: Home with Home Care Goals: Goals home with HHC and [facility] SNF (pt-stated) Evaluation of progress towards goal: awaiting PT/OT evaluation. Daughter at bedside and plans to stay with patient until Saturday. Updated goal: DC to home tomorrow with [facility] therapy and [facility]. SABINO Jo, 12/05/2023, 4:28 PM [facility] 12-05-2023 Consult note Associated Order (s): IP CONSULT TO HOSPITALIST [facility] INTERNAL MEDICINE Hospital Medicine Consultation Patient: Sonia Stauffer Date of : 1945 Room: PCP: No primary care provider on file. Admission date: 12/04/2023 8:36 AM Encounter date: 12/05/23 SUBJECTIVE Reason for Consult: Medical management. Referring Physician/Team: Dr Bryant, Orthopedic Surgeon Sonia Stauffer is a 78 y.o. male who presents with primary osteoarthritis of right knee status post total right knee replacement on 12/04/2023. Patient does have a history of hypertension, hyperlipidemia, and was found to be hyponatremic. Occasional PVCs were noted on marbleizer and hospitalist group were placed on for medical management. Allergies: Levofloxacin Prior to Admission medications Medication Sig Start Date End Date Taking? Authorizing Provider acetaminophen (TYLENOL EXTRA STRENGTH) 500 mg tablet Take 2 tablets (1,000 mg total) by mouth every 6 (six) hours as needed for pain. Yes Not In System Ref Prov amLODIPine (NORVASC) 5 mg tablet Take 1 tablet (5 mg total) by mouth in the morning. Yes Not In System Ref Prov hydroCHLOROthiazide (HYDRODIURIL) 12.5 mg tablet Take 1 tablet (12.5 mg total) by mouth daily. Yes Not In System Ref Prov lisinopriL (PRINIVIL,ZESTRIL) 40 mg tablet Take 1 tablet (40 mg total) by mouth in the morning. Yes Not In System Ref Prov magnesium hydroxide (GILLETTE MILK OF MAGNESIA ORAL) Take 2 tablets by mouth in the morning. Yes Not In System Ref Prov metFORMIN (GLUCOPHAGE) 500 mg tablet Take 1 tablet (500 mg total) by mouth in the morning and 1 tablet (500 mg total) in the evening. Take with meals. Yes Not In System Ref Prov metoprolol tartrate (LOPRESSOR) 25 mg tablet Take 1 tablet (25 mg total) by mouth in the morning and 1 tablet (25 mg total) before bedtime. Yes Not In System Ref Prov multivit-min/folic/vit K/lycop (MEN'S MULTIVITAMIN ORAL) Take 1 tablet by mouth in the morning. Yes Not In System Ref Prov rosuvastatin (CRESTOR) 20 mg tablet Take 1 tablet (20 mg total) by mouth in the morning. Yes Not In System Ref Prov aspirin 81 mg Take 1 tablet (81 mg total) by mouth in the morning. Not In System Ref Prov clopidogreL (PLAVIX) 75 mg tablet Take 1 tablet (75 mg total) by mouth in the morning. Not In System Ref Prov docosahexaenoic acid/epa (FISH OIL ORAL) Take 1,500 mg by mouth in the morning. Not In System Ref Prov niacin (VITAMIN B3) 500 mg tablet Take 1 tablet (500 mg total) by mouth daily with breakfast. Not In System Ref Prov Past Medical History: Patient has a past medical history of Arthritis, Coronary artery disease, Gilbert's syndrome, Hyperlipidemia, Hypertension, Myocardial infarction ([facility]) (05/25/2008), and Sleep apnea. Past Surgical History: Patient has a past surgical history that includes Joint replacement (Left); Tonsillectomy; Cardiac catheterization; Excisional hemorrhoidectomy; Cholecystectomy; Appendectomy; Colonoscopy; Fracture surgery (Right); and Total knee arthroplasty (Right, 12/04/2023). Family History: Patient's family history is not on file. Social History: Patient reports that he has never smoked. He has never used smokeless tobacco. He reports current alcohol use. He reports that he does not use drugs. Review of Systems Review of Systems Constitutional: Negative for activity change, appetite change, chills, diaphoresis, fatigue and fever. HENT: Negative for tinnitus and trouble swallowing. Eyes: Negative for visual disturbance. Respiratory: Negative for cough, chest tightness, shortness of breath and wheezing. Cardiovascular: Negative for chest pain, palpitations and leg swelling. Gastrointestinal: Negative for abdominal pain, diarrhea, nausea and vomiting. Genitourinary: Negative for difficulty urinating. Musculoskeletal: Positive for arthralgias and gait problem. Skin: Negative for rash. Neurological: Negative for dizziness, syncope, speech difficulty, weakness, light-headedness, numbness and headaches. Psychiatric/Behavioral: Negative for sleep disturbance. OBJECTIVE BP 127/71 Pulse 68 Temp 36.7 C (98.1 F) (Oral) Resp 16 Ht 179.1 cm (5' 10.5 ) Wt 127.9 kg (282 lb) SpO2 98% BMI 39.89 kg/m Intake/Output Summary (Last 24 hours) at 12/05/2023 0839 Last data filed at 12/05/2023 0715 Gross per 24 hour Intake 3731.17 ml Output 1000 ml Net 2731.17 ml Physical Exam Physical Exam Vitals and nursing note reviewed. Constitutional: General: He is not in acute distress. HENT: Head: Normocephalic and atraumatic. Right Ear: External ear normal. Left Ear: External ear normal. Nose: Nose normal. Mouth/Throat: Mouth: Mucous membranes are moist. Pharynx: Oropharynx is clear. Eyes: Extraocular Movements: Extraocular movements intact. Pupils: Pupils are equal, round, and reactive to light. Neck: Vascular: No carotid bruit or JVD. Cardiovascular: Rate and Rhythm: Normal rate and regular rhythm. Pulses: Normal pulses. Pulmonary: Effort: Pulmonary effort is normal. Breath sounds: Normal breath sounds. Abdominal: General: Bowel sounds are normal. There is no distension. Palpations: Abdomen is soft. Tenderness: There is no abdominal tenderness. There is no right CVA tenderness or left CVA tenderness. Musculoskeletal: General: Tenderness (Tenderness to right knee.) present. Right lower leg: No edema. Left lower leg: No edema. Lymphadenopathy: Cervical: No cervical adenopathy. Skin: General: Skin is warm and dry. Capillary Refill: Capillary refill takes less than 2 seconds. Neurological: General: No focal deficit present. Mental Status: He is alert and oriented to person, place, and time. Psychiatric: Mood and Affect: Mood normal. Behavior: Behavior normal. Thought Content: Thought content normal. Judgment: Judgment normal. Medications Scheduled: acetaminophen, 1,000 mg, oral, Q6H ROYAL amLODIPine, 5 mg, oral, Daily aspirin, 325 mg, oral, Daily celecoxib, 200 mg, oral, BID hydroCHLOROthiazide, 12.5 mg, oral, Daily lisinopriL, 40 mg, oral, Daily metFORMIN, 500 mg, oral, BID with meals metoprolol tartrate, 25 mg, oral, BID rosuvastatin, 20 mg, oral, Nightly Infusions: sodium chloride 0.9 %, 125 mL/hr, Last Rate: 125 mL/hr (12/05/23 0601) As Needed: acetaminophen calcium gluconate calcium gluconate calcium gluconate magnesium sulfate magnesium sulfate oxyCODONE OR oxyCODONE potassium chloride OR potassium chloride prochlorperazine OR prochlorperazine OR prochlorperazine Labs Recent Results (from the past 24 hour(s)) ABO Rh Repeat Collection Time: 12/04/23 9:56 AM Result Value Ref Range ABO B RH Positive Comprehensive metabolic panel Collection Time: 12/04/23 10:10 PM Result Value Ref Range Sodium 130 (L) 134 - 146 mmol/L Potassium, Bld 3.8 3.5 - 5.0 mmol/L Chloride 95 (L) 98 - 109 mmol/L CO2 25 22 - 32 mmol/L Anion gap 10 5 - 15 mmol/L BUN 16 5 - 27 mg/dL Creatinine 0.91 0.70 - 1.20 mg/dL Glucose 174 (H) 65 - 99 mg/dL Calcium 8.2 (L) 8.5 - 10.5 mg/dL Total Protein 6.3 6.0 - 8.0 g/dL Albumin 3.8 3.2 - 5.3 g/dL Alkaline Phosphatase 32 (L) 39 - 130 U/L AST 21 0 - 41 U/L ALT 20 0 - 40 U/L Total bilirubin 1.6 (H) 0.3 - 1.2 mg/dL eGFR (CKD-EPI)non-race dependent 87 >59 ml/min/1.73sq.m CBC without diff Collection Time: 12/04/23 10:10 PM Result Value Ref Range White Blood Cells 14.2 (H) 4.0 - 11.0 X10E9/L RBC count 4.63 4.10 - 5.70 X10E12/L Hemoglobin 14.5 13.0 - 17.0 g/dL Hematocrit 42.1 39 - 49 % MCV 91 80 - 100 fL MCH 31.2 27 - 34 pg MCHC 34.3 32 - 36 g/dL RDW 13.1 11.5 - 15.0 % Platelets 268 150 - 450 X10E9/L MPV 7.9 7 - 12 fL Magnesium Collection Time: 12/04/23 10:10 PM Result Value Ref Range Magnesium 1.8 1.8 - 2.6 mg/dL Phosphorus Collection Time: 12/04/23 10:10 PM Result Value Ref Range Phosphorus 2.5 2.4 - 4.9 mg/dL TSH with Reflex Collection Time: 12/04/23 10:10 PM Result Value Ref Range TSH 0.45 (L) 0.49 - 4.67 uIU/mL T4, free Collection Time: 12/04/23 10:10 PM Result Value Ref Range T4, free 0.84 0.61 - 1.60 ng/dL Comprehensive metabolic panel Collection Time: 12/05/23 4:39 AM Result Value Ref Range Sodium 129 (L) 134 - 146 mmol/L Potassium, Bld 4.0 3.5 - 5.0 mmol/L Chloride 97 (L) 98 - 109 mmol/L CO2 25 22 - 32 mmol/L Anion gap 7 5 - 15 mmol/L BUN 15 5 - 27 mg/dL Creatinine 0.88 0.70 - 1.20 mg/dL Glucose 134 (H) 65 - 99 mg/dL Calcium 7.9 (L) 8.5 - 10.5 mg/dL Total Protein 5.6 (L) 6.0 - 8.0 g/dL Albumin 3.3 3.2 - 5.3 g/dL Alkaline Phosphatase 25 (L) 39 - 130 U/L AST 16 0 - 41 U/L ALT 16 0 - 40 U/L Total bilirubin 1.6 (H) 0.3 - 1.2 mg/dL eGFR (CKD-EPI)non-race dependent 89 >59 ml/min/1.73sq.m CBC without diff Collection Time: 12/05/23 4:39 AM Result Value Ref Range White Blood Cells 12.6 (H) 4.0 - 11.0 X10E9/L RBC count 4.20 4.10 - 5.70 X10E12/L Hemoglobin 13.1 13.0 - 17.0 g/dL Hematocrit 38.1 (L) 39 - 49 % MCV 91 80 - 100 fL MCH 31.2 27 - 34 pg MCHC 34.4 32 - 36 g/dL RDW 13.0 11.5 - 15.0 % Platelets 243 150 - 450 X10E9/L MPV 8.2 7 - 12 fL Magnesium Collection Time: 12/05/23 4:39 AM Result Value Ref Range Magnesium 2.1 1.8 - 2.6 mg/dL Radiology X-ray knee right 1 or 2 views Result Date: 12/04/2023 Narrative: History: [facility] aftercare. Knee replacement. Pain Study: Right knee Two view study. Comparison: None Impression: Femoral and tibial components are excellent position. No evidence of periprosthetic fracture or acute complication. Skin fei are noted. Follow-up is planned. Excellent alignment. Finalized by Vidhi Wong MD on 12/04/2023 1:28 PM X-ray chest 2 views Result Date: 11/07/2023 Narrative: XR CHEST 2 VWS INDICATION: Preop examination; Coronary artery disease, unspecified vessel or lesion type, unspecified whether angina present, unspecified whether [place] or transplanted heart; Hypertension, unspecified type; History of myocardial infarction. Coronary artery disease. Chest pain. FINDINGS: Cardiac silhouette is normal in size. Trachea midline. No focal pulmonary consolidation. No pleural effusion. No pneumothorax. IMPRESSION: 1. No acute findings. Finalized by Nghia Tolbert MD on 11/07/2023 9:20 PM HOSPITAL PROBLEM LIST Principal Problem: Primary osteoarthritis of right knee Active Problems: Hypertension Hyperlipidemia Hyponatremia ASSESSMENT & PLAN Primary osteoarthritis of right knee: Status post total right knee replacement on 12/04/2023. Orthopedics managing. Hypertension: Normotensive. Continue home medications. Hyperlipidemia: Continue home statin. Hyponatremia: Normal saline at 125 mL/hr. Hold hydrochlorothiazide. Continue to monitor. Monitor kidney function and electrolytes daily. Replace electrolytes per protocol. Occasional PVCs: Continue marbleizer while admitted. Leukocytosis: Chest x-ray and urinalysis ordered to rule out infectious process. Antibiotics given in OR. Continue to monitor. Chart and old records reviewed. DVT prophylaxis: EPC's and aspirin 325 mg daily. GI prophylaxis. PT/OT to evaluate and treat. DC planning: We will follow while inpatient. Recommend repeating sodium later this evening and tomorrow a.m. prior to discharge. DEE Browning, 12/05/2023 8:39 AM [facility] Internal Medicine 7AM-7PM (all facilities): GiftxoxoChat or page through [employer]. 7PM-7AM ([facility], [facility]iat[facility] and [facility]patient Re[facility]): Mobioticst or page, [phone]. 7PM-7AM ([facility] [place], [place] and [facility] Rehab): EpicChat or page through [employer]. This note is dictated with the use of M*Modal. Please note that this dictation was completed with computer voice recognition software. Quite often unanticipated grammatical, syntax, homophones, and other interpretive errors are inadvertently transcribed by the computer software. Please disregard these errors. Please excuse any errors that have escaped final proofreading. DEE Browning 12/05/23 1042 Physician Attestation I, Mias Sanchez MD, personally performed a face to face diagnostic evaluation on this patient. I have reviewed the note authored by the advance practice provider including history, review of systems,physical examination,medical decision making and agree with the assessment and plan as written. I have seen and evaluated the patient, I have repeated the stringer portions of the physical exam and concur with the FISH findings. I have reviewed all laboratory findings and imaging reports/films. I agree with the plan as noted. [employer] Work Phone: 12-05-2023 Consult note Associated Order (s): IP CONSULT TO HOSPITALIST [facility] INTERNAL MEDICINE Hospital Medicine Consultation Patient: Sonia Stauffer Date of : 1945 Room: PCP: No primary care provider on file. Admission date: 12/04/2023 8:36 AM Encounter date: 12/05/23 SUBJECTIVE Reason for Consult: Medical management. Referring Physician/Team: Dr Bryant, Orthopedic Surgeon Sonia Stauffer is a 78 y.o. male who presents with primary osteoarthritis of right knee status post total right knee replacement on 12/04/2023. Patient does have a history of hypertension, hyperlipidemia, and was found to be hyponatremic. Occasional PVCs were noted on marbleizer and hospitalist group were placed on for medical management. Allergies: Levofloxacin Prior to Admission medications Medication Sig Start Date End Date Taking? Authorizing Provider acetaminophen (TYLENOL EXTRA STRENGTH) 500 mg tablet Take 2 tablets (1,000 mg total) by mouth every 6 (six) hours as needed for pain. Yes Not In System Ref Prov amLODIPine (NORVASC) 5 mg tablet Take 1 tablet (5 mg total) by mouth in the morning. Yes Not In System Ref Prov hydroCHLOROthiazide (HYDRODIURIL) 12.5 mg tablet Take 1 tablet (12.5 mg total) by mouth daily. Yes Not In System Ref Prov lisinopriL (PRINIVIL,ZESTRIL) 40 mg tablet Take 1 tablet (40 mg total) by mouth in the morning. Yes Not In System Ref Prov magnesium hydroxide (GILLETTE MILK OF MAGNESIA ORAL) Take 2 tablets by mouth in the morning. Yes Not In System Ref Prov metFORMIN (GLUCOPHAGE) 500 mg tablet Take 1 tablet (500 mg total) by mouth in the morning and 1 tablet (500 mg total) in the evening. Take with meals. Yes Not In System Ref Prov metoprolol tartrate (LOPRESSOR) 25 mg tablet Take 1 tablet (25 mg total) by mouth in the morning and 1 tablet (25 mg total) before bedtime. Yes Not In System Ref Prov multivit-min/folic/vit K/lycop (MEN'S MULTIVITAMIN ORAL) Take 1 tablet by mouth in the morning. Yes Not In System Ref Prov rosuvastatin (CRESTOR) 20 mg tablet Take 1 tablet (20 mg total) by mouth in the morning. Yes Not In System Ref Prov aspirin 81 mg Take 1 tablet (81 mg total) by mouth in the morning. Not In System Ref Prov clopidogreL (PLAVIX) 75 mg tablet Take 1 tablet (75 mg total) by mouth in the morning. Not In System Ref Prov docosahexaenoic acid/epa (FISH OIL ORAL) Take 1,500 mg by mouth in the morning. Not In System Ref Prov niacin (VITAMIN B3) 500 mg tablet Take 1 tablet (500 mg total) by mouth daily with breakfast. Not In System Ref Prov Past Medical History: Patient has a past medical history of Arthritis, Coronary artery disease, Gilbert's syndrome, Hyperlipidemia, Hypertension, Myocardial infarction ([facility]) (05/25/2008), and Sleep apnea. Past Surgical History: Patient has a past surgical history that includes Joint replacement (Left); Tonsillectomy; Cardiac catheterization; Excisional hemorrhoidectomy; Cholecystectomy; Appendectomy; Colonoscopy; Fracture surgery (Right); and Total knee arthroplasty (Right, 12/04/2023). Family History: Patient's family history is not on file. Social History: Patient reports that he has never smoked. He has never used smokeless tobacco. He reports current alcohol use. He reports that he does not use drugs. Review of Systems Review of Systems Constitutional: Negative for activity change, appetite change, chills, diaphoresis, fatigue and fever. HENT: Negative for tinnitus and trouble swallowing. Eyes: Negative for visual disturbance. Respiratory: Negative for cough, chest tightness, shortness of breath and wheezing. Cardiovascular: Negative for chest pain, palpitations and leg swelling. Gastrointestinal: Negative for abdominal pain, diarrhea, nausea and vomiting. Genitourinary: Negative for difficulty urinating. Musculoskeletal: Positive for arthralgias and gait problem. Skin: Negative for rash. Neurological: Negative for dizziness, syncope, speech difficulty, weakness, light-headedness, numbness and headaches. Psychiatric/Behavioral: Negative for sleep disturbance. OBJECTIVE BP 127/71 Pulse 68 Temp 36.7 C (98.1 F) (Oral) Resp 16 Ht 179.1 cm (5' 10.5 ) Wt 127.9 kg (282 lb) SpO2 98% BMI 39.89 kg/m Intake/Output Summary (Last 24 hours) at 12/05/2023 0839 Last data filed at 12/05/2023 0715 Gross per 24 hour Intake 3731.17 ml Output 1000 ml Net 2731.17 ml Physical Exam Physical Exam Vitals and nursing note reviewed. Constitutional: General: He is not in acute distress. HENT: Head: Normocephalic and atraumatic. Right Ear: External ear normal. Left Ear: External ear normal. Nose: Nose normal. Mouth/Throat: Mouth: Mucous membranes are moist. Pharynx: Oropharynx is clear. Eyes: Extraocular Movements: Extraocular movements intact. Pupils: Pupils are equal, round, and reactive to light. Neck: Vascular: No carotid bruit or JVD. Cardiovascular: Rate and Rhythm: Normal rate and regular rhythm. Pulses: Normal pulses. Pulmonary: Effort: Pulmonary effort is normal. Breath sounds: Normal breath sounds. Abdominal: General: Bowel sounds are normal. There is no distension. Palpations: Abdomen is soft. Tenderness: There is no abdominal tenderness. There is no right CVA tenderness or left CVA tenderness. Musculoskeletal: General: Tenderness (Tenderness to right knee.) present. Right lower leg: No edema. Left lower leg: No edema. Lymphadenopathy: Cervical: No cervical adenopathy. Skin: General: Skin is warm and dry. Capillary Refill: Capillary refill takes less than 2 seconds. Neurological: General: No focal deficit present. Mental Status: He is alert and oriented to person, place, and time. Psychiatric: Mood and Affect: Mood normal. Behavior: Behavior normal. Thought Content: Thought content normal. Judgment: Judgment normal. Medications Scheduled: acetaminophen, 1,000 mg, oral, Q6H ROYAL amLODIPine, 5 mg, oral, Daily aspirin, 325 mg, oral, Daily celecoxib, 200 mg, oral, BID hydroCHLOROthiazide, 12.5 mg, oral, Daily lisinopriL, 40 mg, oral, Daily metFORMIN, 500 mg, oral, BID with meals metoprolol tartrate, 25 mg, oral, BID rosuvastatin, 20 mg, oral, Nightly Infusions: sodium chloride 0.9 %, 125 mL/hr, Last Rate: 125 mL/hr (12/05/23 0601) As Needed: acetaminophen calcium gluconate calcium gluconate calcium gluconate magnesium sulfate magnesium sulfate oxyCODONE OR oxyCODONE potassium chloride OR potassium chloride prochlorperazine OR prochlorperazine OR prochlorperazine Labs Recent Results (from the past 24 hour(s)) ABO Rh Repeat Collection Time: 12/04/23 9:56 AM Result Value Ref Range ABO B RH Positive Comprehensive metabolic panel Collection Time: 12/04/23 10:10 PM Result Value Ref Range Sodium 130 (L) 134 - 146 mmol/L Potassium, Bld 3.8 3.5 - 5.0 mmol/L Chloride 95 (L) 98 - 109 mmol/L CO2 25 22 - 32 mmol/L Anion gap 10 5 - 15 mmol/L BUN 16 5 - 27 mg/dL Creatinine 0.91 0.70 - 1.20 mg/dL Glucose 174 (H) 65 - 99 mg/dL Calcium 8.2 (L) 8.5 - 10.5 mg/dL Total Protein 6.3 6.0 - 8.0 g/dL Albumin 3.8 3.2 - 5.3 g/dL Alkaline Phosphatase 32 (L) 39 - 130 U/L AST 21 0 - 41 U/L ALT 20 0 - 40 U/L Total bilirubin 1.6 (H) 0.3 - 1.2 mg/dL eGFR (CKD-EPI)non-race dependent 87 >59 ml/min/1.73sq.m CBC without diff Collection Time: 12/04/23 10:10 PM Result Value Ref Range White Blood Cells 14.2 (H) 4.0 - 11.0 X10E9/L RBC count 4.63 4.10 - 5.70 X10E12/L Hemoglobin 14.5 13.0 - 17.0 g/dL Hematocrit 42.1 39 - 49 % MCV 91 80 - 100 fL MCH 31.2 27 - 34 pg MCHC 34.3 32 - 36 g/dL RDW 13.1 11.5 - 15.0 % Platelets 268 150 - 450 X10E9/L MPV 7.9 7 - 12 fL Magnesium Collection Time: 12/04/23 10:10 PM Result Value Ref Range Magnesium 1.8 1.8 - 2.6 mg/dL Phosphorus Collection Time: 12/04/23 10:10 PM Result Value Ref Range Phosphorus 2.5 2.4 - 4.9 mg/dL TSH with Reflex Collection Time: 12/04/23 10:10 PM Result Value Ref Range TSH 0.45 (L) 0.49 - 4.67 uIU/mL T4, free Collection Time: 12/04/23 10:10 PM Result Value Ref Range T4, free 0.84 0.61 - 1.60 ng/dL Comprehensive metabolic panel Collection Time: 12/05/23 4:39 AM Result Value Ref Range Sodium 129 (L) 134 - 146 mmol/L Potassium, Bld 4.0 3.5 - 5.0 mmol/L Chloride 97 (L) 98 - 109 mmol/L CO2 25 22 - 32 mmol/L Anion gap 7 5 - 15 mmol/L BUN 15 5 - 27 mg/dL Creatinine 0.88 0.70 - 1.20 mg/dL Glucose 134 (H) 65 - 99 mg/dL Calcium 7.9 (L) 8.5 - 10.5 mg/dL Total Protein 5.6 (L) 6.0 - 8.0 g/dL Albumin 3.3 3.2 - 5.3 g/dL Alkaline Phosphatase 25 (L) 39 - 130 U/L AST 16 0 - 41 U/L ALT 16 0 - 40 U/L Total bilirubin 1.6 (H) 0.3 - 1.2 mg/dL eGFR (CKD-EPI)non-race dependent 89 >59 ml/min/1.73sq.m CBC without diff Collection Time: 12/05/23 4:39 AM Result Value Ref Range White Blood Cells 12.6 (H) 4.0 - 11.0 X10E9/L RBC count 4.20 4.10 - 5.70 X10E12/L Hemoglobin 13.1 13.0 - 17.0 g/dL Hematocrit 38.1 (L) 39 - 49 % MCV 91 80 - 100 fL MCH 31.2 27 - 34 pg MCHC 34.4 32 - 36 g/dL RDW 13.0 11.5 - 15.0 % Platelets 243 150 - 450 X10E9/L MPV 8.2 7 - 12 fL Magnesium Collection Time: 12/05/23 4:39 AM Result Value Ref Range Magnesium 2.1 1.8 - 2.6 mg/dL Radiology X-ray knee right 1 or 2 views Result Date: 12/04/2023 Narrative: History: [facility] aftercare. Knee replacement. Pain Study: Right knee Two view study. Comparison: None Impression: Femoral and tibial components are excellent position. No evidence of periprosthetic fracture or acute complication. Skin fei are noted. Follow-up is planned. Excellent alignment. Finalized by Vidhi Wong MD on 12/04/2023 1:28 PM X-ray chest 2 views Result Date: 11/07/2023 Narrative: XR CHEST 2 VWS INDICATION: Preop examination; Coronary artery disease, unspecified vessel or lesion type, unspecified whether angina present, unspecified whether [place] or transplanted heart; Hypertension, unspecified type; History of myocardial infarction. Coronary artery disease. Chest pain. FINDINGS: Cardiac silhouette is normal in size. Trachea midline. No focal pulmonary consolidation. No pleural effusion. No pneumothorax. IMPRESSION: 1. No acute findings. Finalized by Nghia Tolbert MD on 11/07/2023 9:20 PM HOSPITAL PROBLEM LIST Principal Problem: Primary osteoarthritis of right knee Active Problems: Hypertension Hyperlipidemia Hyponatremia ASSESSMENT & PLAN Primary osteoarthritis of right knee: Status post total right knee replacement on 12/04/2023. Orthopedics managing. Hypertension: Normotensive. Continue home medications. Hyperlipidemia: Continue home statin. Hyponatremia: Normal saline at 125 mL/hr. Hold hydrochlorothiazide. Continue to monitor. Monitor kidney function and electrolytes daily. Replace electrolytes per protocol. Occasional PVCs: Continue marbleizer while admitted. Leukocytosis: Chest x-ray and urinalysis ordered to rule out infectious process. Antibiotics given in OR. Continue to monitor. Chart and old records reviewed. DVT prophylaxis: EPC's and aspirin 325 mg daily. GI prophylaxis. PT/OT to evaluate and treat. DC planning: We will follow while inpatient. Recommend repeating sodium later this evening and tomorrow a.m. prior to discharge. DEE Browning, 12/05/2023 8:39 AM [facility] Internal Medicine 7AM-7PM (all facilities): EpicChat or page through Vocera. 7PM-7AM ([facility], [facility]): EpicChat or page, [phone]. 7PM-7AM ([place], [place], [place], [place] and [facility]): EpicChat or page through Vocera. This note is dictated with the use of M*Modal. Please note that this dictation was completed with computer voice recognition software. Quite often unanticipated grammatical, syntax, homophones, and other interpretive errors are inadvertently transcribed by the computer software. Please disregard these errors. Please excuse any errors that have escaped final proofreading. DEE Browning 12/05/23 1042 Physician Attestation I, Misa Sanchez MD, personally performed a face to face diagnostic evaluation on this patient. I have reviewed the note authored by the advance practice provider including history, review of systems,physical examination,medical decision making and agree with the assessment and plan as written. I have seen and evaluated the patient, I have repeated the stringer portions of the physical exam and concur with the FISH findings. I have reviewed all laboratory findings and imaging reports/films. I agree with the plan as noted. documented in this encounter [facility] 12-05-2023 Plan of care note Problem: Pain Goal: Patient goal is pain score less than 4, able to rest, and participant in treatment plan as appropriate Description: INTERVENTIONS: 1. Encourage patient or legal shared services representative to report early pain and ask for pain medicine when needed 2. Assess pain using appropriate pain scale and include the scale used when documenting 3. Administer analgesics based on type and severity of pain and evaluate response within appropriate time frame 4. Implement non-pharmacological measures as appropriate and evaluate response 5. Consider cultural and social influences on pain and pain management 6. Notify LIP if interventions ineffective or patient reports new pain 7. Monitor vital signs including pulse ox, end-tidal CO2 based on pain intervention 8. Reassess pain per policy 9. Teach patient or legal shared services representative interventions for comforting Outcome: Progressing Note: Evaluation of progress towards goal: Continue to assess for pain and address accordingly Problem: Safety Goal: Patient will be injury free during hospitalization Description: INTERVENTIONS: 1. Assess patient's risk for falls and implement fall prevention plan of care per policy 2. Provide and maintain a safe environment 3. Proper use of double Identifiers 4. Medication administration using the 5 rights 5. Hand hygiene 6. Specimens are labeled at the bedside 7. Instruct patient/ patient shared services representative about use of safety devices 8. Include patient/ patient shared services representative in decisions related to safety Outcome: Progressing Note: Evaluation of progress towards goal: No falls. Double identifiers used. Med administration using 5 rights. Hand hygiene maintained. Specimens labeled at bedside. Problem: Infection Goal: Absence of infection during hospitalization Description: Interventions: 1. Assess and monitor for signs and symptoms of infection 2. Monitor lab/diagnostic results 3. Monitor all insertion sites i.e., indwelling lines, tubes and drains 4. Monitor endotracheal (as able) and nasal secretions for changes in amount and color 5. Administer medications as ordered 6. Instruct and encourage patient and family to use good hand hygiene technique 7. Identify and instruct patient/patient shared services representative in use of appropriate isolation precautions for identified infection/symptoms 8. Provide and discuss with patient/patient shared services representative on educational MDRO sheet 9. Encourage and monitor nutritional status daily and consult tool and die maker level five if indicated 10. Implement neutropenic guidelines as needed 11. Review exposure to history of communicable disease and recent travel history on admission 12. Encourage annual influenza vaccine 13. Encourage pneumonia vaccine Outcome: Progressing Note: Evaluation of progress towards goal: Continue to assess for s/s of infection and address accordingly Problem: Knowledge Deficit Goal: Patient/patient shared services representative demonstrates understanding of disease process, treatment plan, medications, and discharge instructions Description: INTERVENTIONS 1. Complete learning assessment and assess knowledge base 2. Provide teaching at level of understanding 3. Provide teaching via preferred learning method(s) Outcome: Progressing Note: Evaluation of progress towards goal: Discussed POC for HS. Questions answered. States an understanding. Review as needed. Problem: Discharge Planning Goal: Discharge to post-acute care, other facility, or home with appropriate resources Description: Patient's goal is: INTERVENTIONS 1. Conduct assessment to determine patient/family and health care team treatment goals, and need for post-acute services based on payer coverage, community resources, and patient preferences, and barriers to discharge 2. Coordinate with Social work, Care Navigation, and Utilization Review to arrange appropriate level of services according to patient's needs based on patient preference and payer coverage in collaboration with the physician and health care team 3. Address psychosocial, clinical, and financial barriers to discharge as identified in assessment in conjunction with the patient/family and health care team 4. Consult appropriate ancillary services (i.e.. PT/OT/ST, etc) as needed 5. Communicate with and update the patient/family, physician, and health care team regarding progress on the discharge plan 6. Identify discharge learning needs (meds, wound care, etc). 7. Arrange for needed discharge transportation as appropriate Outcome: Progressing Note: Evaluation of progress towards goal: Continue to collaborate with all services and work towards discharge Problem: Moderate - High Risk Fall Score Description: Pablo Fall Score of =/> 25 or indicated by [facility] Assessment Goal: Patient should be free from fall Description: Interventions: 1. [place] to environment 2. Hourly rounds addressing the 4 P's (Pain, Positioning, Possessions, Potty) 3. Clear area of hazards (spills, clutter, electrical cords, unnecessary equipment) 4. Place equipment (bed & TV controls, call light, phone, urinal) within reach 5. Encourage patient to wear glasses and hearing aides as appropriate 6. Maintain bed in lowest position 7. Lock wheels on bed/wheelchair 8. Provide adequate lighting, including night light 9. Assess need for additional bedding, food/fluids, pain med's prior to sleep/routinely 10. Provide gripper slippers or personal non-skid footwear 11. Teach patient and patient shared services representative to maintain environment for safety and engage in all aspects of fall prevention program 12. Remind patient to call for help before getting out of bed 13. Initiate bed/chair/exit alarms supportive devices as appropriate, (chair wedge, no-skid floor mat, raised edge mattress, hip protectors) 14. Locate patient bed assignment for optimal visualization 15. Evaluate and identify Safe Patient Handling Equipment needs 16. Provide supervision when out of bed or chair 17. Utilize gait belt as needed to assist with ambulation 18. Place adaptive equipment (cane, walker) within reach 19. Request patient shared services representative bring adaptive equipment/mobility aids from home or obtain and provide as needed 20. Consult pharmacy regarding effects of med's affecting mobility, cognition, and alternatives 21. Obtain physician order for PT if risk factors associated with mobility are present 22. Obtain physician order for OT as appropriate 23. Utilize diversional activities 24. Educate patient and patient shared services representative how to maintain a safe environment during visitation times (notify nurse prior to leaving bedside) 25. Consider appropriateness of medical or non-senior medical transcriptionist 26. Set up voiding schedule as appropriate (every 2 hours) Outcome: Progressing Note: Evaluation of progress towards goal: Hourly rounds. Area clear of hazards. Call light in reach. Non-skid footwear on. Bed wheels locked and bed in lowest position. No falls. Problem: Potential for Compromised Skin Integrity Goal: Skin integrity is maintained or improved Description: Patient's goal is: INTERVENTIONS 1. Perform initial skin assessment on admission and as needed 2. Turn patient every 2 hours and PRN 3. Relieve pressure to bony prominences 4. Avoid shearing 5. Keep skin clean and dry 6. Alternate a full bath with partial baths for elderly 7. Apply lotion/moisturizer on skin 8. Monitor patient's hygiene practices 9. Float heels 10. Collaborate with interdisciplinary team and initiate plans and interventions as needed Outcome: Progressing Note: Evaluation of progress towards goal: Cont skin interventions and address skin issues accordingly Goal: Patient's nutritional intake is adequate Description: Patient's goal is: INTERVENTIONS 1. Assess and monitor food intake and supplements, patient food preferences, nausea, vomiting, labs, oral cavity (gums, teeth, tongue, mucosa), proper denture fit, and cultural beliefs 2. Monitor for signs of hypoglycemia and hyperglycemia 3. Collaborate with interdisciplinary team and initiate plan and interventions as ordered 4. Monitor patient's weight 5. Assist patient with meals/food selection 6. Assist patient with eating 7. Allow adequate time for meals 8. Provide pleasant environment during mealtime 9. Increase social contact during mealtimes 10. Plan activities to conserve energy 11. Encourage/perform oral hygiene as appropriate 12. Encourage patient to take dietary supplement as ordered 13. Collaborate with clinical tool and die maker level five 14. Include patient/ patient's shared services representative in decisions related to nutrition Outcome: Progressing Note: Evaluation of progress towards goal: Continue to assess nutritional status and address accordingly. Will continue to maximize nutrition within ordered parameters Problem: Urinary Incontinence Goal: Perineal skin integrity is maintained or improved Description: INTERVENTIONS 1. Assess genitourinary system, perineal skin, labs (urinalysis), and history of incontinence to include past management, aggravating, and alleviating factors 2. Keep skin clean and dry 3. Apply skin protectant 4. Develop skin care regimen 5. Provide privacy when changing patients incontinence device to maintain their dignity 6. Consider placing an indwelling catheter 7. Collaborate with interdisciplinary team and initiate plans and interventions as needed Outcome: Progressing Note: Evaluation of progress towards goal: Skin clean and dry. Skin protectant as needed. [place] pads in place. [facility] 12-05-2023 Plan of care note Problem: Pain Goal: Patient goal is pain score less than 4, able to rest, and participant in treatment plan as appropriate Description: INTERVENTIONS: 1. Encourage patient or legal shared services representative to report early pain and ask for pain medicine when needed 2. Assess pain using appropriate pain scale and include the scale used when documenting 3. Administer analgesics based on type and severity of pain and evaluate response within appropriate time frame 4. Implement non-pharmacological measures as appropriate and evaluate response 5. Consider cultural and social influences on pain and pain management 6. Notify LIP if interventions ineffective or patient reports new pain 7. Monitor vital signs including pulse ox, end-tidal CO2 based on pain intervention 8. Reassess pain per policy 9. Teach patient or legal shared services representative interventions for comforting Outcome: Progressing Note: Evaluation of progress towards goal: pain responding to oxycodone and tylenol [facility] 12-04-2023 Progress note Formatting of t his note is different from the original. Images from the original note were not included. DISCHARGE PLANNING NOTE Discharge Planning Assessment Sonia Mariano Eh Admit Status: Observation Meet: Yes Readmission Risk: N/A. Date of Admission: 12/04/2023 GMLOS: Observation < 48 hours Target Discharge Date: 12/06/2023 Discharge Planning Assessment completed at bedside. Jet Operator identified self and role to the patient and patient's daughter. Patient is agreeable to the assessment and discussion of a safe discharge plan. 12/04/23 1514 Discharge Disposition Discharge Disposition Home with Self Care (Home with HHC and [facility] verses SNF) County Information [facility] Patient Information Primary Caregiver Self (Daughter is staying with patient through Saturday) Support System Immediate family;Neighbors Income Information Income Information Retired/Pension/Social Security Referral To Community Resources Denies needs Discharge Planning Living Arrangements Alone Support Systems Children;Family members;Neighbors Assistance Needed Patient states he has his walker. Patient states he has quick meals prepared for self at discharge. His daughter is going to stay withhim through Saturday. Patient will be alone on Saturday. They are cnsidering adding RN and [facility] to their [facility] therapy. Possible SNF also considered and will await PT/OT evaluation. Type of Residence Private residence Residence Accessibility Steps into home Number of Steps 2 Home Care Services No (Plans to have [facility] PT at home after discharge.) Community Agencies Currently Utilized None Established DME Comments Walker Patient expects to be discharged to: Home with HHC and [facility] verses SNF Does the patient need discharge transport arranged? No Services Requested Discharge Disposition: Home with home health services (Home with HHC and [facility] verses SNF) Does the patient need discharge transportation arranged?: No (Daughter to take patient home.) Patient choice offered: Yes List Provided: Yes [facility] List Provided: Home Care, Custodial Facility Initial DC Assessment Completed: Yes Pharmacy: [facility] in [place], [place] PCP: Transportation at Time of Discharge: Daughter Patient will make her own follow up appointments: yes Follow up appointment with Dr. Bryant already made. Patient Goals: Goals home with HHC and [facility] verses SNF (pt-stated) Evaluation of progress towards goal: awaiting PT/OT evaluation. Daughter at bedside and plans to stay with patient until Saturday. PT Recommends: Await assessment OT Recommends: Await assessment Home Health Care and Custodial Facility list was provided to patient with [facility] and filtered by insurance payor. Awaiting PT/OT assessment to see if patient qualifies for SNF. If patient qualifies for SNF this is patient and his daughter's first choice. If he doesn't qualify then the plan is to go home with RN[facility] and [facility] PT. Plan to prevent readmission: Home Health Care verses SNF. Follow up with Orthopedics. Patient/Family do not endorse any questions at this time. Patient Discharge Plan: Home with [facility] and [facility] verses SNF. Await PT/OT assessment. - Edwina White RN 12/04/23 3:26 PM [employer] 12-04-2023 Plan of care note Problem: Safety Goal: Patient will be injury free during hospitalization Description: INTERVENTIONS: 1. Assess patient's risk for falls and implement fall prevention plan of care per policy 2. Provide and maintain a safe environment 3. Proper use of double Identifiers 4. Medication administration using the 5 rights 5. Hand hygiene 6. Specimens are labeled at the bedside 7. Instruct patient/ patient shared services representative about use of safety devices 8. Include patient/ patient shared services representative in decisions related to safety Outcome: Progressing Note: Evaluation of progress towards goal: Pt remains free from falls or accidental injury during stay. Fall prevention measures in place. Hourly rounding per RN and NA maintained. Problem: Discharge Planning Goal: Discharge to post-acute care, other facility, or home with appropriate resources Description: Patient's goal is: INTERVENTIONS 1. Conduct assessment to determine patient/family and health care team treatment goals, and need for post-acute services based on payer coverage, community resources, and patient preferences, and barriers to discharge 2. Coordinate with Social work, Care Navigation, and Utilization Review to arrange appropriate level of services according to patient's needs based on patient preference and payer coverage in collaboration with the physician and health care team 3. Address psychosocial, clinical, and financial barriers to discharge as identified in assessment in conjunction with the patient/family and health care team 4. Consult appropriate ancillary services (i.e.. PT/OT/ST, etc) as needed 5. Communicate with and update the patient/family, physician, and health care team regarding progress on the discharge plan 6. Identify discharge learning needs (meds, wound care, etc). 7. Arrange for needed discharge transportation as appropriate Outcome: Progressing Note: Evaluation of progress towards goal: Continue to assess for when appropriate. [facility] 12-04-2023 Procedure note Summary: Right total knee Sonia Stauffer Date of : 1945 Date of Surgery: 12/04/2023 Preoperative diagnosis: Primary osteoarthritis right knee Postoperative diagnosis: Same Procedure: Right total knee arthroplasty Surgeon: Dakota Bryant DO Anesthesia: Anesthesiologist: Monico Ibanez DO DIRECTOR OF SOLUTIONS ARCHITECTURE: Rula Maya APRN-[facility], Monitored Anesthesia Care, Spinal OR staff: Motorcycle Racer Primary: Julissa Mcintosh RN Motorcycle Racer Relief: Arminda Ahumada RN Scrub Person: Tiff Layne CST; ST Edvin Culp Assistant: Lakesha Rowland Estimated blood loss: 150 mL Complications: None Findings: Xkbf-ys-ebia in all 3 compartments Procedure summary: After administration of anesthesia the right knee was prepped and draped in usual fashion a time-out was taken. A tourniquet was not inflated. An anterior medial parapatellar approach was utilized. The patella was retracted laterally the fat pad was excised patella was cut in line tendon to tendon it sized out to a 35 and was prepared with a peg drill. The knee was placed in flexion a step drill was inserted into the femur a distal cut was taken at 4 . Next an extramedullary cutting guide was secured to the tibia the knee was dislocated and a cut was taken perpendicular to the tibia all remnants of the meniscus were excised. The knee was placed in terminal extension in the knee was slightly tight. The knee was placed in flexion the knee seemed loose. The knee was placed back in flexion and an anterior reference Sizer was attached to the femur it sized out to an 8 a distal femoral cutting block was attached and a cut was taken. I then put trials on and rechecked again the knee was tight in extension loose in flexion so at this point I elected to recut the femur I took an additional 2 mm off the femur and re-did the chamfer cuts. This time I put the trials in and there was full range of motion the knee was balancing nicely however now it seems slightly loose both in flexion and extension. The patella was tracking midline. The components were pinned in place the collaterals were checked they were intact with the tibial trial pinned in place the knee was placed in flexion and the remaining components of the trials were removed the tibia was prepared with a drill and a broach. At this point the bone was washed with pulse lavage while the cement was being mixed. A size F tibial component was cemented into place and then the size 8 femoral component was cemented into place and then a provisional polyethylene trial spacer was inserted the knee was placed in terminal extension. Next the patella was washed and dried and the patella button was cemented into place a clamp was applied and this was left in place with the knee in extension and compression across the joint the old the cement was completely hardened Clamp was removed all the excess pieces of cement removed. I ultimately increase the spacer to a size 16 which produced excellent stability both in flexion and extension. The trial spacer was removed and a 16 medial constrained spacer was clicked into place it was snug and secure. I took the knee through range of motion patella was tracking midline there was 0-120 degrees of total motion. There was no instability. I soaked the knee in diluted Betadine then rinsed it I repaired the capsule with a 2. Ethibond 0 Vicryl and a 0 Stratafix running. Next I closed the fat subcutaneous layers with 0 Vicryl then skin clips superficially. Fei were applied. Sterile dressings were applied. [facility] Attending History and physical note HISTORY AND PHYSICAL INTERVAL NOTE: Sonia Stauffer 1945 [id number] H&P reviewed. The patient was examined and there are no changes to the H&P. Dakota Bryant DO Source Note - Dakota Bryant DO - 11/27/2023 2:08 PM EDT [facility] 12-04-2023 History and physical note HISTORY AND PHYSICAL INTERVAL NOTE: Sonia Stauffer 1945 [id number] H&P reviewed. The patient was examined and there are no changes to the H&P. Dakota Bryant DO Source Note - Dakota Mclaughlin DO Manny - 11/27/2023 2:08 PM EDT documented in this encounter [facility] 11-07-2023 Instructions Kassandra Benton RN - 11/07/2023 3:00 PM EDT Preoperative Education Checklist- General Surgery date: 12/04/23 Surgery time: 1015a Arrival time: 815a Please come back to the hospital between 11/25/23-12/03/23Saturday-Saturday 630a-430p for a blood draw. Stop at the registration desk upon arrival. The lab will give you a green blood band, bring that back with you day of surgery. 1. Bring a photo ID and your insurance card with you the day of surgery. You will check in at the main lobby of the [facility]- registration desk is straight ahead as soon as you walk in. Tell them you are here for surgery. 2. If you have a Living Will/Durable Power of Crew Leader for Health Care that is not on file here, please bring a copy the day of surgery. 3. Please shower/bathe the night before surgery with the provided soap or wipes. Do not shower the morning of surgery- you will do use wipes when you arrive here at the hospital before getting into your surgical gown. Do not shave the area of your procedure for 2 days prior to your surgery. 4. NO powder, lotion, perfume/cologne, aftershave, make-up, deodorant, or hair products after you have bathed. 5. NO nail kenyan/acrylic on at least one finger. If you are having a hand, wrist or foot surgery then all nail kenyan and artificial/acrylic nails must be removed from that hand or foot. 6. Avoid ALL Aspirin and non-steroidal anti-inflammatory drugs and certain vitamins (Ibuprofen, Advil, Aleve, Excedrin, Meloxicam, Celebrex, fish/krill oil, etc.) for 7 days prior to surgery as instructed by your surgeon and/or your prescribing doctor. Tylenol IS ALLOWED. If you are on Ticlid, Xarelto, Eliquis, Pradaxa, Plavix or Coumadin, please check with your prescribing doctor for instructions for when to stop them. 7. If you use an inhaler, continue to use it routinely. 8. Nothing to eat or drink (not even water, gum, mints, or hard candy!) AFTER midnight prior to your surgery. 9. Take only medications that you are instructed to on the morning of surgery with a TINY SIP OF WATER. 10. Choose a responsible adult that will be able to drive you home when you are discharged from your hospital stay for your surgery and can stay with you in your home for 24 hours after your procedure. You must NOT drive any vehicle or operate any machinery for 24 hours after surgery. 11. When you dress for your appointment, please wear loose fitting clothing that is appropriate to accommodate your surgical area procedure. BRING WITH YOU ANY DEVICES YOU MAY NEED: MANE hose, ice machine, sling/swath, brace or special shoe, oversized zip-up or button up shirt, CPAP machine if staying overnight. 12. Do NOT wear jewelry, watches, or any piercings or metal for surgery- leave these valuables and money at home. 13. Do NOT wear contact lenses for surgery- glasses are okay if needed. 14. The anesthesiologist will talk with you the day of surgery and will ask you to sign a Consent Form. 15. Refrain from smoking or any type of tobacco use for at least 8 hours and marijuana for 24 hours prior to arrival for your surgery. 16. If a GREEN BLOOD band is given to you, please bring it with you for the day of surgery. 17. Notify your surgeon if you develop any illness before your surgery. 18. If you are staying overnight, please DO NOT BRING your home medications with you. 19. If you have any questions prior to surgery, please call the Preadmission Testing office at [phone], Mon.-Fri. 7 a.m.-3 p.m. Leave a voicemail if needed. Pre-Surgery Instructions: Medication Instructions amLODIPine (NORVASC) 5 mg tablet Take morning of procedure aspirin 81 mg Check with prescribing doctor for instructions clopidogreL (PLAVIX) 75 mg tablet Check with prescribing doctor for instructions docosahexaenoic acid/epa (FISH OIL ORAL) Stop taking 14 days prior to procedure hydroCHLOROthiazide (HYDRODIURIL) 12.5 mg tablet Stop taking 0 days prior to procedure lisinopriL (PRINIVIL,ZESTRIL) 40 mg tablet Take morning of procedure magnesium hydroxide (GILLETTE MILK OF MAGNESIA ORAL) Stop taking 0 days prior to procedure metFORMIN (GLUCOPHAGE) 500 mg tablet Stop taking 0 days prior to procedure metoprolol tartrate (LOPRESSOR) 25 mg tablet Take morning of procedure multivit-min/folic/vit K/lycop (MEN'S MULTIVITAMIN ORAL) Stop taking 0 days prior to procedure niacin (VITAMIN B3) 500 mg tablet Stop taking 0 days prior to procedure rosuvastatin (CRESTOR) 20 mg tablet Stop taking 0 days prior to procedure How to Avoid an Infection after Your Surgery Your doctor will give you specific instructions, but remember: -ALWAYS wash hands before caring for your incision. -No picking, scratching, or rubbing your incision. -No creams, lotion, powder, rubbing alcohol or hydrogen peroxide on the incision (can harm the tissue and slow healing). -Your doctor will give you specific instructions for what type of dressing you will need and how often it will need changed for infection purposes. -No tight clothing on incision. -Do not allow anyone to touch your incision unless they are cleaning, checking, or redressing it (be sure they wash their hands first). -No contact of your incision with pets; avoid sleeping with pets. -Take full course of antibiotic if prescribed for you after surgery- do not stop unless directed to by your physician. You may also be given an antibiotic prior to your surgery to help prevent surgical site infections. -Eat a healthy and varied diet including proteins, fruits, and vegetables to help promote wound healing and keep blood sugars under control if you are diabetic. -Smoking slows the healing process by decreasing the amount of oxygen in your blood that is needed for tissue healing. Try to avoid or stop smoking if possible. LOOK at your incision each morning and each night to check the progress of healing. Some soreness, numbness, itching and/or mild bruising around the incision is normal. Call your doctor if you notice any of the following: -Increased redness or hardening around the incision area. -Increased pain at the incision site. -Incision feels hot to the touch. -Swelling or pulling apart of the incision edges. -Yellow or green drainage or foul odor coming from the incision. -Bleeding from the incision (apply pressure as needed). -Fever higher than 101 degrees Fahrenheit for more than 4 hours. SHOWERING: Your doctor will give you specific instructions, but remember: -Be careful getting into and out of the shower. -Showers should be quick (5 minutes or less). -Use a clean washcloth to gently wash your incision with soap and water and pat the area dry with a clean towel. -No re-using wash cloths or towels; get a fresh one to clean your incision. -Do not soak in the bathtub, go swimming or use a hot tub (Jacuzzi), or perform activities where your incision is submerged in water or exposed to any fluids or substances until instructed by your doctor. -If your have the sticky strips (steri-strips) over the incision, it is OK to shower with them. Do not remove them. Let them fall off on their own. If you have a question, call your doctor s office. Go to the follow-up appointment with your doctor. documented in this encounter [facility] 10-28-2023 Note [facility] Cardiology Clinic Note Chief Complaint: Patient here for follow up heart cath. Knee replacement is scheduled for December 04, 2023. C/o intermittent chest pain s/p cath. Says his VO isn't too bad . HPI: Sonia Stauffer is a 78 y.o. male Cardiology [...] assessed by instantaneous wave-free ratio (iFR). 4. 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 Follow up with me in the [facility] in the next 2 to 4 weeks. 6. Follow up with Dr. Franco as scheduled. PROCEDURES: Ultrasound-guided access to the [...] inferolateral territory wi (more content not included)... [facility] 09-28-2023 Note Hospital Medicine Daily Progress Note - 09/28/2023 8:28 AM; Room: 3109/3109-01 Admission: 09/27/2023 10:47 AM; Length of stay: 1 days THE HOSPITALIST TEAM PREFERS TO USE eTobb CHAT FOR COMMUNICATION 7AM-7PM. IF I DO NOT RESPOND WITHIN 15 MINUTES, PLEASE PAGE ME/CALL THROUGH THE TRANSPORTATION DEPARTMENT SUPERVISOR. FROM 7PM-7AM, PLEASE PAGE [phone](COVR) Code Status: Full Code Barriers to Discharge: [...] , FREET4 , CORTISOL , FEV1 , RJC2WOA , DLCO , RVSP , HDL , LDL No results found for: AFMKXDDN54 , IRON , TIBC , C3 , [...] coronary artery Modera (more content not included)... [facility] 09-27-2023 Note Clinician attempted AOD brief intervention. Pt reports he only drinks a glass of wine or a beer around 1x a week. Pt denies having concerns regarding his alcohol use. Per pt report, pt is drinking within recommended limits. Pt did not need brief intervention at this time. [facility] 09-27-2023 Note 09/27/23 1423 Admission Assessment Questions Verify insurance with patient Yes Do you understand medical disease or what brought you into the hospital? Yes Who is your current PCP? Romel Franco MD Can I schedule a follow up [...] Discharge? No Does the patient have a case folder assigned to them through their insurance? No Living Arrangement (Current/Prior to Hospitalization) Private residence;Home self care (lives alone in one story home. Does not have entry stairs) Does the patient have history of HHC or SNF? No Assistive Device Cane;Other (Comment) (Bipap machine at night - [facility].) Patient's goal for discharge home Was patient [...] to send link and activate MyChart? No [facility] 09-27-2023 Note Hospital Medicine History and Physical 09/27/2023 1:59 PM THE HOSPITALIST TEAM PREFERS TO USE eTobb CHAT FOR COMMUNICATION 7AM-7PM. IF I DO NOT RESPOND WITHIN 15 MINUTES, PLEASE PAGE ME/CALL THROUGH THE TRANSPORTATION DEPARTMENT SUPERVISOR. FROM 7PM-7AM, PLEASE PAGE [phone](COVR) Chief Complaint No chief complaint on file. History of Present Illness Sonia Stauffer is an 78 y.o. male admitted [...] this hospital stay by a member of [facility]. Past Medical History Past Medical History: Diagnosis Date Hyperlipidemia Hypertension Myocardial infarction ([facility]) Sleep apnea Past Surgical Histo (more content not included)... [facility] 09-27-2023 Note Cardiovascular Labor atory Report FINAL [...] left radial artery was obtained. A 6 Citizen [place] glide sheath was inserted without difficulty. Bilateral selective coronary angiography was performed using JR 4.0 and JL 4.0 catheters. After reviewing the images, it was elected to proceed with an interventional procedure. A 6 Citizen [place] XB 3.5 guide catheter was advanced over [...] inferoapical ischemia, preo (more content not included)... [facility] Evaluation note Diagnosis Postoperative pain of right [...] Primary Presence of artificial knee joint, right Primary osteoarthritis of right knee Status post right knee replacement [facility] Diagnosis Primary osteoarthritis of right knee Status post right knee replacement [facility] Diagnosis Postoperative pain of right knee- Primary Presence of artificial knee joint, right [facility] Diagnosis Status post right knee replacement Primary osteoarthritis of right knee documented in this encounter [facility]* Diagnosis Preop examination- Primary Unspecified pre-operative examination Coronary artery disease, unspecified vessel or lesion type, unspecified whether angina present, unspecified whether [place] or transplanted heart Hypertension, unspecified type History of myocardial infarction Preop examination Unspecified pre-operative examination Coronary artery disease, unspecified vessel or lesion type, unspecified whether angina present, unspecified whether [place] or transplanted heart Hypertension, unspecified type History of myocardial infarction [facility] Diagnosis Primary osteoarthritis of right knee- Primary Status post total knee replacement, right Hypertension Unspecified essential hypertension Hyperlipidemia Other and unspecified hyperlipidemia Hyponatremia Hyposmolality and/or hyponatremia [facility] instructionsNot on filedocumented in this [facility] Summary Purpose Family History No Family History Records FoundNo Family History Records FoundNo Family History Records FoundNo Family History Records FoundNo Family History Records FoundNo Family History Records FoundNo Family History Records Found Advance Directives No Advanced Directives Records Found Date Activated Date Inactivated Comments 12/04/2023 7:33 AM Reason for Referral Specialty Diagnoses / Procedures Referred By Adal welsh Referred To Contact Diagnoses Status post total knee replacement, right Procedures Discharge medication instruction-no alcohol while taking pain medications 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 [employer]ER [employer] [address] [place] [id number] Referral ID Status Reason Start Date Expiration Date V isits Requested Visits Authorized [id number] Pending Review 12/06/2023 12/05/2024 1 1 Specialty Diagnoses / Procedures Referred By Adal welsh Referred To Contact Diagnoses Status post total knee replacement, right Procedures Discharge instruction after anesthesia/sedation Mely Paige HOGSHEAD OPENER-[employer] [address] [place] [address] Referral ID Status Reason Start Date Expiration Date V isits Requested Visits Authorized [id number] Pending Review 12/06/2023 12/05/2024 1 1 Specialty Diagnoses / Procedures Referred By Adal welsh Referred To Contact Procedures Follow-up with 7-14 days after surgery Mely Paige HOGSHEAD OPENER-[employer] [address] [place] [address] Referral ID Status Reason Start Date Expiration Date V isits Requested Visits Authorized [id number] Pending Review 12/06/2023 12/05/2024 1 1 Specialty Diagnoses / Procedures Referred By Contac t Referred To Contact Procedures Dressing instructions- keep incision clean and dry Mely Paige, HOGSHEAD OPENER-[employer] [address] [place] [address] Referral ID Status Reason Start Date Expiration Date V isits Requested Visits Authorized [id number] Pending Review 12/06/2023 12/05/2024 1 1 Specialty Diagnoses / Procedures Referred By Contac t Referred To Contact Procedures Hygiene- may shower Mely Paige, HOGSHEAD OPENER-[facility] [address] [place] [address] Referral ID Status Reason Start Date Expiration Date V isits Requested Visits Authorized [id number] Pending Review 12/06/2023 12/05/2024 1 1 Specialty Diagnoses / Procedures Referred By Contac t Referred To Contact Diagnoses Status post total knee replacement, right Procedures Apply ice to affected area Mely Paige, HOGSHEAD OPENER-[facility] [address] [place] [address] Referral ID Status Reason Start Date Expiration Date V isits Requested Visits Authorized [id number] Pending Review 12/06/2023 12/05/2024 1 1 Additional Source Comments (unrecognized sect ion and content) No Status Records FoundNo Status Records FoundNo Status Records FoundNo Status Records FoundNo Status Records FoundNo Status Records FoundNo Status Records Found INFORMATION SOURCE (unrecogn ized section and content) DATE CREATED AUTHOR 04/28/2018 [facility] DATE CREATED AUTHOR AUTHOR'S ORGANIZ ATION 10/26/2020 [facility] DATE CREATED AUTHOR AUTHOR'S ORGANIZ ATION 07/09/2022 [facility] DATE CREATED AUTHOR AUTHOR'S ORGANIZ ATION 05/03/2023 [facility] DATE CREATED AUTHOR AUTHOR'S ORGANIZ ATION 12/07/2023 [facility] DATE CREATED AUTHOR AUTHOR'S ORGANIZ ATION 06/02/2024 [facility] Specialists [facility] DATE CREATED AUTHOR AUTHOR'S ORGANIZ ATION 08/01/2024 [facility] Care Teams (unrecognized sec tion and content) Supervisor Kennel Relationship Specialty Start Date End Date Romel Franco MD [address] [facility] [place] [address] PCP - General Family Medicine 03/18/23 Supervisor Kennel Relationship Specialty Start Date End Date Romel Franco MD [address] [place] [address] PCP - General Family Medicine 03/18/23 Supervisor Kennel Relationship Specialty Start Date End Date Romel Franco MD [address] [facility] [place] [address] PCP - General Family Medicine 03/18/23 Supervisor Kennel Relationship Specialty Start Date End Date Romel Franco MD [address] [facility] [place] [address] PCP - General Family Medicine 03/18/23 Supervisor Kennel Relationship Specialty Start Date End Date Romel Franco MD [address] [facility] [place] [address] PCP - General Family Medicine 03/18/23 Supervisor Kennel Relationship Specialty Start Date End Date Romel Franco MD [address] [place] [address] PCP - General Family Medicine 03/18/23 Supervisor Kennel Relationship Specialty Start Date End Date Romel Franco MD [address] [facility] [place] [address] PCP - General Family Medicine 03/18/23 Supervisor Kennel Relationship Specialty Start Date End Date Romel Franco MD [address] [facility] [place] [address] PCP - General Family Medicine 03/18/23 Supervisor Kennel Relationship Specialty Start Date End Date Romel Franco MD [address] [facility] [place] [address] PCP - General Family Medicine 03/18/23 Supervisor Kennel Relationship Specialty Start Date End Date Romel Franco MD [address] [facility] [place] [address] PCP - General Family Medicine 03/18/23 Supervisor Kennel Relationship Specialty Start Date End Date Romel Franco MD [address] [facility] [place] [address] PCP - General Family Medicine 03/18/23 Supervisor Kennel Relationship Specialty Start Date End Date Romel Franco MD [address] [facility] [place] [address] PCP - General Family Medicine 03/18/23 Supervisor Kennel Relationship Specialty Start Date End Date Romel Franco MD [address] [facility] [place] [address] PCP - General Family Medicine 03/18/23 Supervisor Kennel Relationship Specialty Start Date End Date Romel Franco MD [address] [facility] [place] [address] PCP - General Family Medicine 03/18/23 Supervisor Kennel Relationship Specialty Start Date End Date Romel Franco MD [address] [place] [address] PCP - General Family Medicine 03/18/23 Reason for Visit (unrecogniz ed section and content) Specialty Diagnoses / Procedures Referred By Contac t Referred To Contact Physical Therapy Diagnoses Presence of right artificial knee joint Procedures NV PHYSICAL THERAPY EVALUATION LOW COMPLEX 20 MINS Dakota Bryant, DO [address] [facility] [address] [place] [address] Jona Sterling, EZE Referral ID Status Reason Start Date Expiration Date Visits Requested Visits Authorized [id number] Authorized Consult and Treat 01/21/2024 03/03/2024 12 12 Reason Comments Follow-up Specialty Diagnoses / Procedures Referred By Contac t Referred To Contact Physical Therapy Diagnoses Presence of artificial knee joint, right Procedures NV OFFICE/OUTPATIENT NEW HIGH MDM 60 MINUTES Dakota Bryant, DO [address] [facility] [address] [place] [address] Jona Sterling, EZE Referral ID Status Reason Start Date Expiration Date Visits Requested Visits Authorized [id number] Authorized Specialty Services Required 12/04/2023 06/01/2024 99 99 Specialty Diagnoses / Procedures Referred By Contac t Referred To Contact Diagnoses right knee degenerative joint disease Procedures NV TOTAL KNEE ARTHROPLASTY REPLACEMENT TOTAL JOINT KNEE Dakota Bryant DO [address] [facility] [address] [place] [address] Referral ID Status Reason Start Date Expiration Date Visits Re quested Visits Authorized [id number] 1 1 Scheduled Active and Recently Administ ered Medications (unrecognized section and content) Medication Order 12/04/2023 12/05/2023 12/06/2023 acetaminophen (TYLENOL EXTRA STRENGTH) tablet 1,000 mg 1,000 mg, oral, Every 6 hours scheduled, First dose on Sat12/04/23 at 1800, Start 6 hours after the pre-op dose. 1702 (Given - Provider: Reina June RN)2327 (Given - Provider: Vidhi Sanchez, RN) 0614 (Given - Provider: Vidhi Sanchez RN)1311 (Given - Provider: Rivas Bell RN)1728 (Given - Provider: Rivas Bell RN) 0000 (Given - Provider: Vidhi Sanchez, MERCY)0600 (Not Given - Provider: Vidhi Sanchez RN - Reason: Contraindicated - Comment: dose would exceed 4000 mg in 24 hours)1317 (Given - Provider: Beverley Otero RN)1800 (Due) amLODIPine (NORVASC) tablet 5 mg 5 mg, oral, Daily, First dose on Sat12/05/23 at 0900, Look-alike/sound-alike medication - verify indication for use. Avoid grapefruit juice. 0850 (Given - Provider: Rivas Bell RN) 0828 (Given - Provider: Beverley Otero RN) aspirin EC tablet 325 mg 325 mg, oral, Daily, First dose on Sat12/05/23 at 0900, Do not crush or chew. 0850 (Given - Provider: Rivas Bell RN) 0828 (Given - Provider: Beverley Otero RN) ceFAZolin (ANCEF) IVPB 1000 mg/50 mL in iso-osmotic dextrose (20 mg/mL premix) (COMPLETED)(Linked Group 1) 1,000 mg, intravenous, at 100 mL/hr, Administer over 30 Minutes, Once, On Sat12/04/23 at 0900, For 1 dose, Pre-op, Total dose of 3000mg for weight >120kg Look-alike/sound-alike medication - verify indication for use., Indication: Surgical prophylaxis 1105 (Given - Provider: Rula Maya APRN-DIRECTOR OF SOLUTIONS ARCHITECTURE) ceFAZolin (ANCEF) IVPB 2000 mg/50 mL in iso-osmotic dextrose (40 mg/mL premix) (COMPLETED) 2,000 mg, intravenous, at 100 mL/hr, Administer over 30 Minutes, Every 8 hours, First dose on Sat12/04/23 at 2000, For 2 doses, Pharmacy to adjust per renal function; Start 8 hours after pre-op dose for total of 3 doses including pre-op dose. Infuse all doses within 24 hours of initial dose. For patient less than 120 kg. Look-alike/sound-alike medication - verify indication for use., Indication: Surgical prophylaxis 2015 (New Bag - Provider: Vidhi Sanchez RN)2045 (Stop Bag - Provider: Vidhi Sanchez RN) 354 (New Bag - Provider: Vidhi Sanchez RN)424 (Stop Bag - Provider: Vidhi Sanchez RN) ceFAZolin (ANCEF) IVPB 2000 mg/50 mL in iso-osmotic dextrose (40 mg/mL premix) (COMPLETED)(Linked Group 1) 2,000 mg, intravenous, at 100 mL/hr, Administer over 30 Minutes, Once, On Sat12/04/23 at 0900, For 1 dose, Pre-op, Total dose 3000mg for weight >120kg. Look-alike/sound-alike medication - verify indication for use., Indication: Surgical prophylaxis 1051 (Given - Provider: Rula Maya APRN-DIRECTOR OF SOLUTIONS ARCHITECTURE) celecoxib (CeleBREX) capsule 200 mg 200 mg, oral, 2 times daily, First dose on Sat12/04/23 at 2100, Use with caution for patients with renal insufficiency or greater than 80 years of age. Start 12 hours after the Pre-op dose; IF already receiving ketorolac [TORADOL], then start 12 hours after last ketorolac [TORADOL] dose. Look-alike/sound-alike medication - verify indication for use. 2137 (Given - Provider: Vidhi Sanchez RN) 0850 (Given - Provider: Rivas Bell RN)2054 (Given - Provider: Vidhi Sanchez RN) 08 (Given - Provider: Beverley Otero RN)2100 (Due) celecoxib (CeleBREX) capsule 200 mg (COMPLETED) 200 mg, oral, Once, On Sat12/04/23 at 0900, For 1 dose, Pre-op, Look-alike/sound-alike medication - verify indication for use. 914 (Given - Provider: Pamela Hu RN) hydroCHLOROthiazide (HYDRODIURIL) tablet 12.5 mg (CANCELED) 12.5 mg, oral, Daily, First dose on Sat12/05/23 at 0900, Look-alike/sound-alike medication - verify indication for use. 0850 (Given - Provider: Rivas Bell RN) lisinopriL (PRINIVIL,ZESTRIL) tablet 40 mg 40 mg, oral, Daily, First dose on Sat12/05/23 at 0900, Look-alike/sound-alike medication - verify indication for use. 0850 (Given - Provider: Rivas Bell RN) 0828 (Given - Provider: Beverley Otero, MERCY) metFORMIN (GLUCOPHAGE) tablet 500 mg 500 mg, oral, 2 times daily with meals, First dose on Sat12/04/23 at 1700, Hold dose and notify prescriber if blood glucose is less than 100 mg/dL or patient status has changed to NPO. Look-alike/sound-alike medication - verify indication for use. May alter blood glucose or insulin requirements. Metformin and use of contrast media will be reviewed according to Metformin and Metformin Containing Medications and Contrast Media policy. 1701 (Given - Provider: Reina June RN) 0725 (Given - Provider: Reina June RN)1728 (Given - Provider: Rivas Bell RN) 0829 (Given - Provider: Beverley Otero, RN)1700 (Due) metoprolol tartrate (LOPRESSOR) tablet 25 mg 25 mg, oral, 2 times daily, First dose on Sat12/04/23 at 2100, Look-alike/sound-alike medication - verify indication for use. 2011 (Given - Provider: Vidhi Sanchez RN) 0850 (Given - Provider: Rivas Bell RN)2055 (Given - Provider: Vidhi Sanchez RN) 0828 (Given - Provider: Beevrley Otero, MERCY)2100 (Due) midazolam (VERSED) injection 2 mg (COMPLETED) 2 mg, intravenous, Once, On Sat12/04/23 at 0900, For 1 dose, Pre-op, Indication: Other, Indication: pre procedure block 929 (Given - Provider: Pamela Hu RN) rosuvastatin (CRESTOR) tablet 20 mg 20 mg, oral, Nightly, First dose on Kati 12/05/23 at 2200, Look-alike/sound-alike medication - verify indication for use. 2099 (Given - Provider: Vidhi Sanchez RN) 2200 (Due) tranexamic acid (LYSTEDA) tablet 1,950 mg (COMPLETED) 1,950 mg, oral, Once, On Sat12/04/23 at 0900, For 1 dose, Pre-op 0915 (Given - Provider: Pamela Hu RN) Continuous Medication Order 12/04/2023 12/05/2023 12/06/2023 lactated ringers infusion (CANCELED) 100 mL/hr, intravenous, Continuous, Starting on Sat12/04/23 at 0900, Pre-op, If fluid restriction is not indicated, infuse at a rate up to 5 mL/kg/hr not to exceed the total replacement volume (2 ml/kg/hr) from the time NPO status was initiated. 0915 (New Bag - Provider: Pamela Hu RN) sodium chloride 0.9 % infusion 125 mL/hr, intravenous, Continuous, Starting on Sat12/04/23 at 1500 1526 (New Bag - Provider: Reina June RN)1759 (Paused - Provider: Vidhi Sanchez RN)1802 (Restarted - Provider: Vidhi Sanchez RN)2016 (Paused - Provider: Vidhi Sanchez RN)2046 (Restarted - Provider: Vidhi Sanchez RN)211 (Paused - Provider: Vidhi Sanchez RN)2122 (Restarted - Provider: Vidhi Sanchez RN)2342 (Stop Bag - Provider: Vidhi Sanchez RN)2344 (New Bag - Provider: Vidhi Sanchez RN) 0355 (Paused - Provider: Vidhi Sanchez RN)0425 (Restarted - Provider: Vidhi Sanchez RN)0601 (Rate/Dose Verify - Provider: Vidhi Sanchez RN)0817 (Restarted - Provider: Rivas Bell RN)0845 (Stop Bag - Provider: Rivas Bell RN)0848 (New Bag - Provider: Rivas Bell RN)1029 (Paused - Provider: Rivas Bell RN)1031 (Paused - Provider: Rivas Bell RN)1116 (Restarted - Provider: Rivas Bell RN)1316 (Paused - Provider: Rivas Bell RN)1318 (Restarted - Provider: Rivas Bell RN)1636 (Rate/Dose Verify - Provider: Rivas Bell RN)1643 (Rate/Dose Verify - Provider: Rivas Bell RN)1744 (New Bag - Provider: Rivas Bell RN) PRN Medication Order 12/04/2023 12/05/2023 12/06/2023 acetaminophen (TYLENOL EXTRA STRENGTH) tablet 500 mg 500 mg, oral, Every 4 hours PRN, mild pain of 1, Starting on Sat12/04/23 at 1448 0141 (Given - Provider: Vidhi Sanchez RN)0828 (Given - Provider: Beverley Otero RN) bacitracin ointment (CANCELED) As needed, Starting on Sat12/04/23 at 1236, Intra-op 1236 (Given - Provider: Dakota Bryant, DO - Comment: Given by FA under direction of surgeon.) calcium gluconate 3,000 mg in sodium chloride 0.9 % 100 mL IVPB 3,000 mg, intravenous, at 43.3 mL/hr, Administer over 3 Hours, As needed, ionized calcium 3.5 to 3.9 mg/dL, Starting on Sat12/04/23 at 2130, IV Administration of calcium via a central or deep vein preferred. Avoid administration in small hand veins VESICANT (RED) calcium gluconate 4,000 mg in sodium chloride 0.9 % 250 mL IVPB 4,000 mg, intravenous, at 72.5 mL/hr, Administer over 4 Hours, As needed, ionized calcium 3.4 mg/dL or less, Starting on Sat12/04/23 at 2130, IV administration of calcium via a central or deep vein is preferred. Avoid administration in small hand veins. VESICANT (RED) calcium gluconate IVPB 2000 mg/100 mL (20 mg/mL premix) 2,000 mg, intravenous, at 50 mL/hr, Administer over 2 Hours, As needed, ionized calcium 4 to 4.3 mg/dL, Starting on Sat12/04/23 at 2130, IV Administration of calcium via a central or deep vein preferred. Avoid administration in small hand veins VESICANT (RED) iohexoL (OMNIPAQUE) 300 mg iodine/mL 70 mL (COMPLETED) 70 mL, intravenous, Once in imaging, contrast, Starting on Sat12/06/23 at 1407, For 1 dose, VESICANT (RED) 1419 (Given - Provider: Carmela Loera, RT - Comment: lot [id number] 08/17/26) magnesium sulfate IVPB 2000 mg/50 mL in iso-osmotic water (40 mg/mL premix) 2,000 mg, intravenous, at 25 mL/hr, Administer over 120 Minutes, As needed, Magnesium level 1.7 to 1.9 mg/dL, or Ionized Magnesium level 0.45 to 0.5 mmol/L., Starting on Sat12/04/23 at 2130, Recheck magnesium level 4 hours after infusion complete. With each magnesium result continue the replacement orders as needed. 2333 (New Bag - Provider: Vidhi Sanchez RN) 109 (Stop Bag - Provider: Vidhi Sanchez RN)011 (Stop Bag - Provider: Vidhi Sanchez RN)0134 (Stop Bag - Provider: Vidhi Sanchez RN) magnesium sulfate IVPB 4000 mg/100 mL in iso-osmotic water (40 mg/mL premix) 4,000 mg, intravenous, at 25 mL/hr, Administer over 240 Minutes, As needed, Magnesium level 1.6 mg/dL or less, or Ionized Magnesium level 0.44 mmol/L or less, Starting on Sat12/04/23 at 2130, Recheck magnesium level 4 hours after infusion complete. With each magnesium result continue the replacement orders as needed. oxyCODONE (ROXICODONE) immediate release tablet 10 mg(Linked Group 2) 10 mg, oral, Every 3 hours PRN, severe pain - pain scale 7-10, Starting on Sat12/04/23 at 1448, The oral route is preferred for patients tolerating oral intake without nausea and vomiting. IV pain medications should be used if the oral route is ineffective for symptom control or if patient unable to take medications orally. Look-alike/sound-alike medication - verify indication for use. Immediate release. 2010 (See Alternative - Provider: Vidhi Sanchez RN)2327 (See Alternative - Provider: Vidhi Sanchez RN) 035 (See Alternative - Provider: Vidhi Sanchez RN)0724 (Given - Provider: Reina June RN)1311 (See Alternative - Provider: Rivas Bell RN)142 (See Alternative - Provider: Rivas Bell RN)172 (Given - Provider: Rivas Bell RN)2055 (Given - Provider: Vidhi Sanchez RN) 013 (See Alternative - Provider: Vidhi Sanchez RN) oxyCODONE (ROXICODONE) immediate release tablet 5 mg(Linked Group 2) 5 mg, oral, Every 3 hours PRN, moderate pain - pain scale 4-6, Starting on Sat12/04/23 at 1448, The oral route is preferred for patients tolerating oral intake without nausea and vomiting. IV pain medications should be used if the oral route is ineffective for symptom control or if patient unable to take medications orally. Look-alike/sound-alike medication - verify indication for use. Immediate release. 2010 (Given - Provider: Vidhi Sanchez RN)2327 (Given - Provider: Vidhi Sanchez RN) 356 (Given - Provider: Vidhi Sanchez RN)0724 (See Alternative - Provider: Reina June RN)1311 (Given - Provider: Rivas Bell RN)142 (Given - Provider: Rivas Bell RN)1727 (See Alternative - Provider: Rivas Bell RN)2055 (See Alternative - Provider: Vidhi Sanchez RN) 013 (Given - Provider: Vidhi Sanchez RN) potassium chloride (K-TAB,KLOR-CON) CR tablet 30-50 mEq(Linked Group 3) 30-50 mEq, oral, As needed, potassium supplementation, Starting on Sat12/04/23 at 2130, Progress to oral potassium replacement when patient tolerating oral intake. If dose administered, recheck potassium level 4 hours after last dose. For potassium level 3.4 to 3.8 mmol/L and GFR 30 mL/min or greater=30 mEq. For potassium level 3.1 to 3.3 mmol/L and GFR 30 mL/min or greater=40 mEq. For potassium level 3 mmol/L or less and GFR 30 mL/min or greater=50 mEq. Do not crush or chew. 2328 (Given - Provider: Vidhi Sanchez RN) potassium chloride (KAYCIEL) 20 mEq/15 mL solution 30-50 mEq(Linked Group 3) 30-50 mEq, oral, As needed, potassium supplementation, Starting on Sat12/04/23 at 2130, Progress to oral potassium replacement when patient tolerating oral intake. If dose administered, recheck potassium level 4 hours after last dose. For potassium level 3.4 to 3.8 mmol/L and GFR 30 mL/min or greater=30 mEq. For potassium level 3.1 to 3.3 mmol/L and GFR 30 mL/min or greater=40 mEq. For potassium level 3 mmol/L or less and GFR 30 mL/min or greater=50 mEq. Must dilute before use - Mix in 3-8 ounces of water or juice before administration When administering in feeding tube, flush before and after per policy and monitor potassium levels 2328 (See Alternative - Provider: Vidhi Sanchez RN) prochlorperazine (COMPAZINE) injection 5 mg(Linked Group 4) 5 mg, intravenous, Every 6 hours PRN, nausea, vomiting, if patient unable to tolerate PO, Starting on Sat12/04/23 at 2130, When administered via IV Push, do not exceed 5 mg per minute prochlorperazine (COMPAZINE) injection 5 mg(Linked Group 4) 5 mg, intramuscular, Every 8 hours PRN, nausea, vomiting, if patient unable to tolerate PO and does not have IV access, Starting on Sat12/04/23 at 2130, When administered via IV Push, do not exceed 5 mg per minute prochlorperazine (COMPAZINE) tablet 5 mg(Linked Group 4) 5 mg, oral, Every 6 hours PRN, nausea, vomiting, Starting on Sat12/04/23 at 2130 sodium chloride 0.9 % flush 10 mL 10 mL, intravenous, As needed, line care, Starting on Sat12/06/23 at 1407 1419 (Given - Provider: RT Joan) sodium chloride 0.9 % radiology injection (COMPLETED) 80 mL, intravenous, Once in imaging, pre/post contrast, Starting on Sat12/06/23 at 1407, For 1 dose 1419 (Given - Provider: Carmela Luz Maria, RT) Linked Groups Order Group 1: ceFAZolin (ANCEF) IVPB 2000 mg/50 mL in iso-osmotic dextrose (40 mg/mL premix) (COMPLETED)Jump to med 2,000 mg, intravenous, at 100 mL/hr, Administer over 30 Minutes, Once, On Sat12/04/23 at 0900, For 1 dose, Pre-op, Total dose 3000mg for weight >120kg. Look-alike/sound-alike medication - verify indication for use., Indication: Surgical prophylaxis Followed by ceFAZolin (ANCEF) IVPB 1000 mg/50 mL in iso-osmotic dextrose (20 mg/mL premix) (COMPLETED)Jump to med 1,000 mg, intravenous, at 100 mL/hr, Administer over 30 Minutes, Once, On Sat12/04/23 at 0900, For 1 dose, Pre-op, Total dose of 3000mg for weight >120kg Look-alike/sound-alike medication - verify indication for use., Indication: Surgical prophylaxis Group 2: oxyCODONE (ROXICODONE) immediate release tablet 5 mgJump to med 5 mg, oral, Every 3 hours PRN, moderate pain - pain scale 4-6, Starting on Sat12/04/23 at 1448, The oral route is preferred for patients tolerating oral intake without nausea and vomiting. IV pain medications should be used if the oral route is ineffective for symptom control or if patient unable to take medications orally. Look-alike/sound-alike medication - verify indication for use. Immediate release. Or oxyCODONE (ROXICODONE) immediate release tablet 10 mgJump to med 10 mg, oral, Every 3 hours PRN, severe pain - pain scale 7-10, Starting on Sat12/04/23 at 1448, The oral route is preferred for patients tolerating oral intake without nausea and vomiting. IV pain medications should be used if the oral route is ineffective for symptom control or if patient unable to take medications orally. Look-alike/sound-alike medication - verify indication for use. Immediate release. Group 3: potassium chloride (K-TAB,KLOR-CON) CR tablet 30-50 mEqJump to med 30-50 mEq, oral, As needed, potassium supplementation, Starting on Sat12/04/23 at 2130, Progress to oral potassium replacement when patient tolerating oral intake. If dose administered, recheck potassium level 4 hours after last dose. For potassium level 3.4 to 3.8 mmol/L and GFR 30 mL/min or greater=30 mEq. For potassium level 3.1 to 3.3 mmol/L and GFR 30 mL/min or greater=40 mEq. For potassium level 3 mmol/L or less and GFR 30 mL/min or greater=50 mEq. Do not crush or chew. Or potassium chloride (KAYCIEL) 20 mEq/15 mL solution 30-50 mEqJump to med 30-50 mEq, oral, As needed, potassium supplementation, Starting on Sat12/04/23 at 2130, Progress to oral potassium replacement when patient tolerating oral intake. If dose administered, recheck potassium level 4 hours after last dose. For potassium level 3.4 to 3.8 mmol/L and GFR 30 mL/min or greater=30 mEq. For potassium level 3.1 to 3.3 mmol/L and GFR 30 mL/min or greater=40 mEq. For potassium level 3 mmol/L or less and GFR 30 mL/min or greater=50 mEq. Must dilute before use - Mix in 3-8 ounces of water or juice before administration When administering in feeding tube, flush before and after per policy and monitor potassium levels Group 4: prochlorperazine (COMPAZINE) tablet 5 mgJump to med 5 mg, oral, Every 6 hours PRN, nausea, vomiting, Starting on Sat12/04/23 at 2130 Or prochlorperazine (COMPAZINE) injection 5 mgJump to med 5 mg, intravenous, Every 6 hours PRN, nausea, vomiting, if patient unable to tolerate PO, Starting on Sat12/04/23 at 2130, When administered via IV Push, do not exceed 5 mg per minute Or prochlorperazine (COMPAZINE) injection 5 mgJump to med 5 mg, intramuscular, Every 8 hours PRN, nausea, vomiting, if patient unable to tolerate PO and does not have IV access, Starting on Sat12/04/23 at 2130, When administered via IV Push, do not exceed 5 mg per minute FOR RECORDS PERTAINING TO PATIENTS WHO ARE [...] BE BASED ON THE PRIMARY CLINICAL RECORDS. [facility]. provides no warranty or guarantee of the accuracy or completeness of information in this document.
== END 2024-08-04 10:45 | disposition home or self-care (01) ==
LOC: LAB 10:44
PROVIDERS: PCP Family Medicine; Visit Provider Family Medicine
DX: J20.9 Acute bronchitis, unspecified (principal); I50.30 Unspecified diastolic (congestive) heart failure; I11.0 Hypertensive heart disease with heart failure
CPT/HCPCS: 87070; 87205

== ENCOUNTER 2025-01-26 13:41 | Outpatient (OUT) | payer MEDICARE, SELFPAY ==
--- NOTE | 2025-01-26 13:44 | ECG_ITS ---
[facility] Test Date: 2025-01-26 Pat Name: SONIA PLASENCIA Department: Room: - Gender: Male Surgery Attendant: : 1945 Requested By: MARQUITA FIELD Order Number: [id number] Reading MD: QUINTON RUELAS Measurements Intervals [place] Rate: 60 P: 58 LA: 213 QRS: -41 QRSD: 122 T: 13 QT: 414 QTc: 415 Interpretive Statements SINUS RHYTHM WITH FIRST DEGREE AV BLOCK MARKED LEFT AXIS DEVIATION [QRS AXIS < -30] MODERATE INTRAVENTRICULAR CONDUCTION DELAY [110+ ms QRS DURATION] Compared to ECG 07/15/2020 07:59:16 First degree AV block now present Intraventricular conduction delay now present Sinus arrhythmia no longer present Electronically Signed On 01-28-2025 13:34:46 EDT by QUINTON RUELAS
--- OUTSIDE RECORDS SUMMARY | 2025-01-26 13:56 | XMS_ITS | CCD ---
Author Organization [facility] Care Team Providers Care Receiver Stocker Name Role Phone PHYSICIAN, DEFAULT Unavailable Unavailable [...] Unavailable HOY ., DR URENA Consulting Unavailable Navdeep Porter MD Attending Unavailable DAKOTA BRYANT Referring Unavailable DAKOTA BRYANT Referring Unavailable DAKOTA BRYANT Attending Unavailable DAKOTA BRYANT Referring Unavailable DAKOTA BRYANT Attending Unavailable DAKOTA BRYANT Referring Unavailable DAKOTA BRYANT Referring Unavailable DAKOTA BRYANT Admitting Unavailable DAKOTA BRYANT Attending Unavailable DONNA TAYLOR Consulting Unavailable MISA SANCHEZ Consulting Unavailable Romel Franco MD Primary Care Provider [phone] Unavailable Primary Care Provider UnavailRomel Thao MD Primary Care Provider [phone] MELY PAIGE Attending Unavailable MELY PAIGE Referring Unavailable BAKARI HUITRON Attending Unavailable DAKOTA BRYANT Referring Unavailable DAKOTA BRYANT Attending Unavailable JONA STERLING Attending Unavailable DAKOTA BRYANT Referring Unavailable JONA STERLING Attending Unavailable MANNY, DAKOTA Mclaughlin Referring Unavailable MAUREEN, ADRIANA Attending Unavailable MANNY, DAKOTA Mclaughlin Referring Unavailable ASHER, JONA Attending Unavailable MANNY, [...] Referring Unavailable MANNY, DAKOTA Mclaughlin Attending Unavailable GRECIA, MELY Welsh Attending Unavailable MELY PAIGE Referring Unavailable EMIR, Óscar Thibodeaux Attending Unavailable Romel Franco Referring Unavailable FIELD, Óscar Thibodeaux Attending Unavailable FIELD, Óscar Thibodeaux Attending Unavailable ELTAHAWY, EHAB Attending Unavailable Allergies Allergy Classification Reported Allergen(s) Allergy Type Date of Onset Reaction(s) Facility Quinolones (antibiotic) (1 source) levoFLOXacin; Translations: [LEVOFLOXACIN] Drug Allergy 4 [facility] Repository (1 source) 48819,00; Translations: [48226,00] Propensity to adverse reactions (disorder) 9 [facility] Repository (2 sources) levoFLOXacin; Translations: [LEVOFLOXACIN] Drug Allergy 3 [facility] Repository (20 sources) levoFLOXacin Drug Allergy 3 [...] 6 (six) hours if needed Active amLODIPine 2.5 mg oral tablet (20 sources) Dihydropyridine Calcium Channel Yazmin Start: 03-21-2024 take 1 tablet by mouth in the morning amLODIPine (Norvasc) 2.5 MG tablet TAKE 1 TABLET BY MOUTH IN THE MORNING AND 1 TABLET AT BEDTIME 03/21/2024 Active Start: 12-05-2023 End: 11-24-2024 take 5 mg by mouth once daily [...] 01/06/2024 Active take 1 tablet by neptali once daily aspirin 81 MG chewable tablet [...] time Active empagliflozin 10 mg oral tablet (5 sources) Sodium-Glucose Cotransporter 2 Inhibitor take 1 [...] like medication - verify indication for use. losartan potassium 50 mg oral tablet (3 sources) Angiotensin 2 Receptor Yazmin Start: 06-12-19 End: 06-12-19 take 1 tablet by mouth in the morning losartan (Cozaar) 50 MG tablet Take 50 mg by mouth in the morning. 06/12/2024 06/12/2025 Active Magnesium Hydroxide (3 sources) take 2 tablets by mouth in the morning magnesium hydroxide (VetDC MILK OF MAGNESIA ORAL) Take 2 tablets by mouth in the morning. take 2 tablets by mouth in the m orning magnesium hydroxide (VetDC MILK OF MAGNESIA ORAL) Take 2 tablets [...] oral tablet (20 sources) Biguanide Start: 08-23-2022 take 1 tablet by mouth in the morning metFORMIN (Glucophage) 500 MG tablet Take 1 tablet by mouth in the morning and 1 tablet before bedtime. 08/23/2022 Active metoprolol tartrate 25 mg oral tablet (20 sources) beta-Adrenergic Yazmin Start: 12-04-2023 take 25 mg by mouth twice daily 25 mg, oral, 2 times daily, First dose on Sat12/04/23 at 2100, Look-alike/sound-a like medication - verify indication for use. metoprolol [...] First dose on Kati 12/05/23 at 2200, Look-alike/sound-ali ke medication - verify indication for use. Start: 10-28-2023 End: 10-27-2024 take 1 tablet by mouth in the morning rosuvastatin (Crestor) 20 MG tablet Take 20 mg by mouth in the morning. 10/28/2023 Active simvastatin 40 mg oral tablet (20 [...] 03-05-2018 Coronary atherosclerosis and other heart disease (15 sources) Atherosclerotic heart disease of [place] coronary artery with unstable angina pectoris; Translations: [Old myocardial infarction] Onset: 03-18-2012 10-18-2023 Chronic Coronary atherosclerosis and other heart disease (1 source) Presence of coronary angioplasty implant and graft; Translations: [PRESENCE OF CORONARY ANGIOPLASTY IMPLANT AND GRAFT] Onset: 03-05-2018 Episodic Diabetes mellitus without complication (2 sources) Type 2 diabetes mellitus without complications; Translations: [TYPE 2 DIABETES MELLITUS WITHOUT COMPLICATIONS] Onset: 03-05-2018 Chronic Disorders of lipid metabolism (10 sources) Hyperlipidemia, unspecified; Translations: [Hyperlipidemia] Onset: 03-18-2012 Chronic Essential hypertension (20 sources) Essential (primary) hypertension; Translations: [Hypertensive disorder] Onset: 03-05-2018 10-30-2023 Chronic Malaise and fatigue (1 source) Other fatigue; Translations: [OTHER FATIGUE] Onset: 07-09-2022 Episodic Osteoarthritis (20 sources) Unilateral primary osteoarthritis, right knee; Translations: [Osteoarthritis of left knee joint] Onset: 03-18-2023 03-18-2023 Chronic Other aftercare (1 source) superintendent container terminal (current) use of 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/antip latelets; Translations: [FDC (CURRENT) USE OF ANTITHROMBOTICS/ANTIP LATELETS] Onset: 03-05-2018 Episodic Other aftercare (1 source) snf (current) use of aspirin; Translations: [BASKET MAKER (CURRENT) USE OF ASPIRIN] Onset: 03-05-2018 Episodic Other aftercare (1 source) Other superintendent container terminal (current) drug therapy; Translations: [OTH FDC CURRENT DRUG THERAPY] Onset: 07-09-2022 Episodic Other aftercare (1 source) snf (current) use of oral hypoglycemic drugs; Translations: [BASKET MAKER (CURRENT) USE OF ORAL HYPOGLYCEMIC DRUGS] Onset: [...] Onset: 03-05-2018 Episodic Other nervous system disorders (3 sources) Difficulty walking; Translations: [Difficulty in walking, not elsewhere classified] Onset: 03-24-2017 11-24-2024 Chronic Other nutritional; endocrine; and metabolic disorders (20 sources) Obesity; Translations: [Obesity, unspecified] Onset: 10-30-2023 10-30-2023 Chronic Other nutritional; endocrine; and metabolic disorders (3 sources) Insulin resistance; Translations: [Insulin resistance] Onset: 02-08-2020 11-24-2024 Chronic Residual codes; unclassified (20 sources) Obstructive [...] 10-30-2023 10-30-2023 Episodic Fluid and electrolyte disorders (5 sources) Hyponatremia; Translations: [Hypo-osmolality and hyponatremia] Onset: 12-05-2023 12-05-2023 Episodic Other lower respiratory disease (20 sources) Snoring; Translations: [Snoring] Onset: 10-30-2023 10-30-2023 Episodic Other lower respiratory disease (20 sources) Hypoxia; Translations: [Hypoxemia] Onset: 10-30-2023 10-30-2023 Episodic Other lower respiratory disease (3 sources) Dyspnea; Translations: [Dyspnea, unspecified] Onset: 03-19-2012 11-24-2024 Episodic Other nervous system disorders (20 sources) Other acute postprocedural pain; Translations: [Other acute postoperative pain] Onset: 12-07-2023 12-08-2023 Episodic Other screening for suspected conditions (not mental disorders or infectious disease) (5 sources) Encounter for screening for malignant neoplasm of prostate; Translations: [Encounter for screening for malignant neoplasm of colon] Onset: 07-09-2022 11-24-2024 Episodic Unclassified (1 source) LOW BACK PAIN, UNSPECIFIED; Translations: [LOW BACK PAIN, UNSPECIFIED] Onset: 01-11-2022 Results Test Name Value Interpretation Reference Range Facility Ambulatory Visit Summaryon 0 01-20-2025 Ambulatory Visit Summary Ambulatory Visit Summary SONIA STAUFFER :1945 Visit Date:01/20/2025 Ambulatory Visit Instructions Your Diagnosis Balanitis Phimosis Antiplatelet or antithrombotic long-term use Microhematuria Your Care Team Attending Physician - Óscar FIELD MD Primary Care Physician - Romel Franco MD Referring Physician - Romel Franco MD This Is Your Medications List Contact prescribing physician if questions or concerns amlodipine (amLODIPine 2.5 mg Tab) aspirin (aspirin 81 mg Chew Tab) clopidogrel (Plavix 75 mg Tab) dapagliflozin (Farxiga 10 mg oral tablet) hydrochlorothiazide (hydrochlorothiazide 12.5 mg Cap) losartan (losartan 50 mg Tab) metformin (metformin 500 mg oral tablet) metoprolol (Metoprolol tartrate 25 mg Tab) multivitamin (Multiple Vitamins Tab) niacin omega-3 polyunsaturated fatty acids (Fish Oil) rosuvastatin (Crestor 20 mg Tab) Procedures Performed Excisional biopsy (12/02/2019), Total replacement of left knee joint (02/17/2017), Appendectomy, Cholecystectomy, Hemorrhoidectomy, Insertion of carotid artery stent, Stent, Tonsillectomy and adenoidectomy. Discharge Vitals Heart Rate (Peripheral) 86 Respiratory Rate 16 Blood Pressure 130/72 Height 181 cm Height 71 in Weight 136 kg Weight 299.828 lb BMI 41.51 What to do next Scheduled Follow-Up Appointments Saturday 2:15 PM EDT With: Óscar FIELD MD Where: [facility] [address] [place] [address]- You Need to Schedule the Following Appointments Follow Up with Óscar FIELD MD, URL When: Where: [facility] [address], [place] [address]- Medications What How Much When Instructions Unchanged amlodipine (amLODIPine 2.5 mg Tab) 1 Tablets By Mouth 2 times a day Contact prescribing physician if questions or concerns Unchanged aspirin (aspirin 81 mg Chew Tab) 1 Tablets Chewed Every day Contact prescribing physician if questions or concerns Unchanged clopidogrel (Plavix 75 mg Tab) 1 Tablets By Mouth Every day Contact prescribing physician if questions or concerns Unchanged dapagliflozin (Farxiga 10 mg oral tablet) 1 Tablets By Mouth Every day Contact prescribing physician if questions or concerns Unchanged hydrochlorothiazide (hydrochlorothiazide 12.5 mg Cap) 1 Capsules By Mouth Every day Contact prescribing physician if questions or concerns Unchanged losartan (losartan 50 mg Tab) 1 Tablets By Mouth Every day Contact prescribing physician if questions or concerns Unchanged metformin (metformin 500 mg oral tablet) 1 Tablets By Mouth 2 times a day Contact prescribing physician if questions or concerns Unchanged metoprolol (Metoprolol tartrate 25 mg Tab) 1 Tablets By Mouth 2 times a day Contact prescribing physician if questions or concerns Unchanged multivitamin (Multiple Vitamins Tab) 1 Tablets By Mouth Every day Contact prescribing physician if questions or concerns Unchanged niacin 50 Milligram By Mouth Every day Contact prescribing physician if questions or concerns Unchanged omega-3 polyunsaturated fatty acids (Fish Oil) 1,000 Milligram By Mouth Every day Contact prescribing physician if questions or concerns Unchanged rosuvastatin (Crestor 20 mg Tab) 1 Tablets By Mouth Every day Contact prescribing physician if questions or concerns Allergies No Known Allergies Problems Ongoing - Any problem that you are currently receiving treatment for. Antiplatelet or antithrombotic long-term use Balanitis Benign essential hypertension CAD (coronary artery disease) Depression Gilbert syndrome Heart attack History of gout Hyperlipemia Lipoma of scalp PA (myocardial infarction) Microhematuria Morbid obesity with BMI of 40.0-44.9, adult Obstructive sleep apnea Phimosis Pilar cyst Historical - Any problem that you are no longer receiving treatment for. Arthritis Cholecystectomy Hemorrhoid Sleep apnea Stented coronary artery Patient Survey You may receive a survey via text or e-mail asking about your office visit. Please share your experience with us by completing your survey. We appreciate your feedback and thank you for choosing us for your care. Education Materials Circumcision Information Male infants are born with a fold of skin that covers the head of the penis (foreskin). This fold of skin is often removed shortly after with a surgery that is called circumcision. A circumcision may be done by a health care provider who is involved in care or by a specialist who cares for the urinary tract (urologist). Circumcisions may also be done in non-medical settings for confucianist or cultural reasons. Who should be circumcised? The decision to leave the foreskin on or to have it removed is a personal one. It is often based on confucianist, social, or cultural beliefs. Circumcision is (more content not included)... Normal [facility] Ambulatory Visit Summary Ambulatory Visit Summary SONIA STAUFFER :1945 Visit Date:01/20/2025 Ambulatory Visit Instructions Your Diagnosis Balanitis Phimosis Antiplatelet or antithrombotic long-term use Microhematuria Your Care Team Attending Physician - EMIR MARTIN, Óscar Thibodeaux Primary Care Physician - Romel Franco MD Referring Physician - Romel Franco MD This Is Your Medications List Contact prescribing physician if questions or concerns amlodipine (amLODIPine 2.5 mg Tab) aspirin (aspirin 81 mg Chew Tab) clopidogrel (Plavix 75 mg Tab) dapagliflozin (Farxiga 10 mg oral tablet) hydrochlorothiazide (hydrochlorothiazide 12.5 mg Cap) losartan (losartan 50 mg Tab) metformin (metformin 500 mg oral tablet) metoprolol (Metoprolol tartrate 25 mg Tab) multivitamin (Multiple Vitamins Tab) niacin omega-3 polyunsaturated fatty acids (Fish Oil) rosuvastatin (Crestor 20 mg Tab) Procedures Performed Excisional biopsy (12/02/2019), Total replacement of left knee joint (02/17/2017), Appendectomy, Cholecystectomy, Hemorrhoidectomy, Insertion of carotid artery stent, Stent, Tonsillectomy and adenoidectomy. Discharge Vitals Heart Rate (Peripheral) 86 Respiratory Rate 16 Blood Pressure 130/72 Height 181 cm Height 71 in Weight 136 kg Weight 299.828 lb BMI 41.51 What to do next You Need to Schedule the Following Appointments Follow Up with EMIR MARTIN, GILMAR Rincon When: Where: [facility] [address], [place] [address]- Medications What How Much When Instructions Unchanged amlodipine (amLODIPine 2.5 mg Tab) 1 Tablets By Mouth 2 times a day Contact prescribing physician if questions or concerns Unchanged aspirin (aspirin 81 mg Chew Tab) 1 Tablets Chewed Every day Contact prescribing physician if questions or concerns Unchanged clopidogrel (Plavix 75 mg Tab) 1 Tablets By Mouth Every day Contact prescribing physician if questions or concerns Unchanged dapagliflozin (Farxiga 10 mg oral tablet) 1 Tablets By Mouth Every day Contact prescribing physician if questions or concerns Unchanged hydrochlorothiazide (hydrochlorothiazide 12.5 mg Cap) 1 Capsules By Mouth Every day Contact prescribing physician if questions or concerns Unchanged losartan (losartan 50 mg Tab) 1 Tablets By Mouth Every day Contact prescribing physician if questions or concerns Unchanged metformin (metformin 500 mg oral tablet) 1 Tablets By Mouth 2 times a day Contact prescribing physician if questions or concerns Unchanged metoprolol (Metoprolol tartrate 25 mg Tab) 1 Tablets By Mouth 2 times a day Contact prescribing physician if questions or concerns Unchanged multivitamin (Multiple Vitamins Tab) 1 Tablets By Mouth Every day Contact prescribing physician if questions or concerns Unchanged niacin 50 Milligram By Mouth Every day Contact prescribing physician if questions or concerns Unchanged omega-3 polyunsaturated fatty acids (Fish Oil) 1,000 Milligram By Mouth Every day Contact prescribing physician if questions or concerns Unchanged rosuvastatin (Crestor 20 mg Tab) 1 Tablets By Mouth Every day Contact prescribing physician if questions or concerns Allergies No Known Allergies Problems Ongoing - Any problem that you are currently receiving treatment for. Antiplatelet or antithrombotic long-term use Balanitis Benign essential hypertension CAD (coronary artery disease) Depression Gilbert syndrome Heart attack History of gout Hyperlipemia Lipoma of scalp PA (myocardial infarction) Microhematuria Morbid obesity with BMI of 40.0-44.9, adult Obstructive sleep apnea Phimosis Pilar cyst Historical - Any problem that you are no longer receiving treatment for. Arthritis Cholecystectomy Hemorrhoid Sleep apnea Stented coronary artery Patient Survey You may receive a survey via text or e-mail asking about your office visit. Please share your experience with us by completing your survey. We appreciate your feedback and thank you for choosing us for your care. Education Materials Circumcision Information Male infants are born with a fold of skin that covers the head of the penis (foreskin). This fold of skin is often removed shortly after with a surgery that is called circumcision. A circumcision may be done by a health care provider who is involved in care or by a specialist who cares for the urinary tract (urologist). Circumcisions may also be done in non-medical settings for confucianist or cultural reasons. Who should be circumcised? The decision to leave the foreskin on or to have it removed is a personal one. It is often based on confucianist, social, or cultural beliefs. Circumcision is most often done in the first few days of life, but it may also be done later in life. In general: ??? All healthy boys with a normal penis formation can be circumcised in the first few days after . ??? Boys who are (more content not included)... Normal [facility] Urology Office/Clinic Noteon 01-20-2025 Urology Office/Clinic Note Urology Office/Clinic Note Chief Complaint Balanitis new patient HPI Staff 79 year old male presents as referral for recurrent balanitis. Has been treated for it three times by PCP. Pain around tip of the penis started in October of this year. IPSS: 13 little bit of pain and burning after urinating. Denies visible blood, denies abdominal/flank pain History of Present Illness Tests reviewed: UA, referral records I have reviewed the previous health record information and history for this patient from external provider. I have reviewed and verified the staff HPI to be accurate for this encounter. Review of Systems PHQ Score Initial Depression Screen Score: 0 SCORE ROS - Provider Constitutional: denies weight loss, denies hot flashes. Eyes: denies eye problems. Gastrointestinal: denies nausea, denies vomiting. Cardiovascular: denies chest pain or angina. Integumentary: no dryness Musculoskeletal: denies musculoskeletal symptoms. ENMT: denies otolaryngeal symptoms. Respiratory: no shortness of breath. Heme/Lymph: denies easy bleeding tendency, denies easy bruising tendency. Psychiatric: no confusion, no anxiety. Genitourinary: See HPI. Physical Exam Vitals & Measurements HR: 86(Peripheral) RR: 16 BP: 130/72 HT: 71 in HT: 181 cm WT: 299.828 lb WT: 136 kg BMI: 41.51 General Appearance: alert, no distress, well nourished, well developed adult. : thick, red indurated foreskin with phimosis. classic balanitis. unable to have total circumcision, though this is recommended, d/t foreskin attaching to scrotum. will need dorsal slit instead. Assessment/Plan Sonia is a 79 yo M new pt referred by Dr Franco d/t recurrent balanitis. IPSS 13. 1. Puneet (N48.1: Balanitis) Was circumcised as a child, likely not substantially based on exam. Onset around October. Has been treated three times by PCP. Exam: thick, red foreskin with phimosis. classic balanitis. unable to have total circumcision, though this is recommended, d/t foreskin attaching to scrotum. will need dorsal slit instead. -Will schedule dorsal slit, possible Circumcision. The procedure risks, benefits, and details have been discussed with the patient. These include bleeding, infection, potential separation of the skin edges (which will heal in), change in penile sensation which may affect sexual intercourse and erections, as well as the need for additional procedures, among others. Full informed consent has been obtained. Will order General anesthesia. 2. Phimosis (N47.1: Phimosis) See #1. 3. Antiplatelet or antithrombotic long-term use (Z79.02: snf (current) use of 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/antipl atelets) Plavix and ASA. Hx of PA, s/p widowmaker. 4. Microhematuria (R31.29: Other microscopic hematuria) UA shows moderate blood wo signs of infection. Denies gross hematuria. Suspect secondary to #1 after exam. -UA after dorsal slit/circ Follow-up With When Contact Information EMIR MARTIN, Óscar Thibodeaux, URL [facility] [address], [place] [address]- Additional Instructions: schedule dorsal slit, possible Circumcision Patient Education Circumcision Information Micaela Ramirez, personally scribed for Dr. Field on 01/20/2025 13:52:17. . Documentation recorded by the scribe, Micaela Monsalve, accurately reflects the services(s) I performed and decisions made by me. Authenticated by Dr. Field on 01/20/2025 13:54:27. Problem List/Past Medical History Ongoing Antiplatelet or antithrombotic long-term use Balanitis Benign essential hypertension CAD (coronary artery disease) Depression Gilbert syndrome Heart attack History of gout Hyperlipemia Lipoma of scalp PA (myocardial infarction) Microhematuria Morbid obesity with BMI of 40.0-44.9, adult Obstructive sleep apnea Phimosis Pilar cyst Historical Arthritis Cholecystectomy Hemorrhoid Sleep apnea Stented coronary artery Procedure/Surgical History Excisional biopsy (12/02/2019), Total replacement of left knee joint (02/17/2017), Appendectomy, Cholecystectomy, Hemorrhoidectomy, Insertion of carotid artery stent, Stent, Tonsillectomy and adenoidectomy. Medications amLODIPine 2.5 mg Tab, 2.5 mg= 1 tab(s), Oral, BID aspirin 81 mg Chew Tab, 81 mg= 1 tab(s), Chewed, Daily Crestor 20 mg Tab, 20 mg= 1 tab(s), Oral, Daily Farxiga 10 mg oral tablet, 10 mg= 1 tab(s), Oral, Daily Fish Oil, 1000 mg, Oral, Daily hydrochlorothiazide 12.5 mg Cap, 12.5 mg= 1 cap(s), Oral, Daily losartan 50 mg Tab, 50 mg= 1 tab(s), Oral, Daily metformin 500 mg oral tablet, 500 mg= 1 tab(s), Oral, BID Metoprolol tartrate 25 mg Tab, 25 mg= 1 tab(s), Oral, BID Multiple Vitamins Tab, 1 tab(s), Oral, Daily niacin, 50 mg, Oral, Daily Plavix 75 mg Tab, 75 mg= 1 tab(s), Oral, Daily Allergies No Known Allergies Social History Alcohol - Low Risk, 05/10/2013 Current, Beer, Wine, Liquor, 1-2 times per month, (more content not included)... Normal [facility] Comment on above: Result Comment: Elec tronically Signed By: Óscar FIELD MD\.br\Date and Time Signed: 01/20/25 13:54 EDT\.br\Electronically Co-Signed By: Micaela Monsalve\.br\Date and Time Co-Signed: 01/20/25 13:52 EDT Telephoneon 01-15-2025 Telephone [id number] Sonia Stauffer 1945 M Date Provider Department Center 01/15/2025 GORDON GRANDE Family History Problem Relation Age of Onset Heart attack Mother 60 Heart attack Maternal Grandmother Family Status - Relation Status Age at Mother Maternal Grandmother Normal [facility] XR Knee - right 1 or 2 Views on 11-25-2024 Imaging Result: 11/25/2024: Standing AP and LAT of right knee [...] Impression: Stable RT total knee replacement. Mely PRICE [facility]zuna e Radiology Study observation (narrative) [facility] Orders Onlyon 07-27-2024 Orders Only [id number] Sonia Stauffer 1945 M Date Provider Department Center 07/27/2024 GORDON GRANDE Family History Problem Relation Age of Onset Heart attack Mother 60 Heart attack Maternal Grandmother Family Status - Relation Status Age at Mother Maternal Grandmother Normal [facility] XR Knee - right 1 or 2 [...] Impression: Stable RT total knee replacement. Mely PRICE [facility] (narrative[facility] Office Visiton 05-06-2024 Follow-up visit [id number] Sonia Stauffer 1945 M Date Provider Department Center 05/06/2024 MORAIMA MORRISON Family History Problem Relation Age of Onset Heart attack Mother 60 Heart attack Maternal Grandmother Family Status - Relation Status Age at Mother Maternal Grandmother Level of Service:04004 [place] OFFICE/OUTPATIENT ESTABLISHED MOD MDM 30 MIN Normal [facility] XR Knee - right 1 or 2 Views on 01-14-2024 Imaging Result: January 14, 2004 x-rays AP and lateral of the right knee demonstrate cemented knee replacement in good position alignment without signs of loosening fracture or failure. 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 [facility] e Radiology Study observation (narrative) [facility] CBC without diffon Erythrocyte distribution width (RBC) [Ratio] 13.3 % 11.5 - 15.0 % [facility] Hematocrit (Bld) [Volume fraction] 36.5 % Low 39 - 49 % [facility] Hemoglobin (Bld) [Mass/Vol] 12.4 g/dL Low 13.0 - 17.0 g/dL [facility] Interpretation and review of laboratory results Abnormal [facility] MCH (RBC) [Entitic mass] 31.3 pg 27 - 34 pg [facility] MCHC (RBC) [Mass/Vol] 33.9 g/dL 32 - 36 g/dL [facility] MCV (RBC) [Entitic vol] 93 fL 80 - 100 fL [facility] Platelet mean volume (Bld) [Entitic vol] 8.4 fL 7 - 12 fL [facility] Platelets (Bld) [#/Vol] 241 10*3/uL [facility] RBC (Bld) [#/Vol] 3.95 10*6/uL Low [facility] WBC corrected for nucl RBC Auto (Bld) [#/Vol] 12.0 High [facility] COMPLETE BLOOD COUNTon 12-05 Erythrocyte distribution width (RBC) [Ratio] 13.3 % Normal 11.5-15.0 [facility] Comment on above: Performed By: #### C BCA, BMP #### [facility] ([id number]) [address], [address] [place] [address] Hematocrit (Bld) [Volume fraction] 36.5 % Low 39-49 [facility] Comment on above: Performed By: #### Casey BARTON, BMP #### [facility] ([id number]) [address], [facility] [address] [place] [address] Hemoglobin (Bld) [Mass/Vol] 12.4 g/dL Low 13.0-17.0 [facility] Comment on above: Performed By: #### C ORALIA, BMP #### [facility] ([id number]) [address], [facility] [address] [place] [address] MCH (RBC) [Entitic mass] 31.3 pg Normal 27-34 [facility] Comment on above: Performed By: #### Casey BARTON, BMP #### [facility] ([id number]) [address], [facility] [address] [place] [address] MCHC (RBC) [Mass/Vol] 33.9 g/dL Normal 32-36 [facility] Comment on above: Performed By: #### Casey BARTON, BMP #### [facility] ([id number]) [address], [address] [place] [address] MCV (RBC) [Entitic vol] 93 fL Normal 80-100 [facility] Comment on above: Performed By: #### Casey BARTON, BMP #### [facility] ([id number]) [address], [address] [place] [address] Platelet mean volume (Bld) [Entitic vol] 8.4 fL Normal 7-12 [facility] Comment on above: Performed By: #### C ORALIA, BMP #### [facility] ([id number]) [address], [address] [place] [address] Platelets (Bld) [#/Vol] 241 10*3/uL Normal 150-450 [facility] Comment on above: Performed By: #### Casey BARTON, BMP #### [facility] ([id number]) [address] [place] [address] RBC COUNT 3.95 X10E12/L Low 4.10-5.70 [facility] Comment on above: Performed By: #### C BCA, BMP #### [facility] ([id number]) [address], [address] [place] [address] WBC (Bld) [#/Vol] 12.0 10*3/uL High 4.0-11.0 [facility] Comment on above: Performed By: #### C BCA, BMP #### [facility] ([id number]) [address], [address] [place] [address] COMPREHENSIVE METABOLIC PANE Jace 12-06-2023 Albumin [Mass/Vol] 3.3 g/dL Normal 3.2-5.3 [facility] Comment on above: Performed By: #### C BCA, BMP #### [facility] ([id number]) [address], [address] [place] [address] ALP [Catalytic activity/Vol] 22 U/L Low 39-130 [facility] Comment on above: Performed By: #### C BCA, BMP #### [facility] ([id number]) [address], [address] [place] [address] ALT [Catalytic activity/Vol] 13 U/L Normal 0-40 [facility] Comment on above: Performed By: #### C BCA, BMP #### [facility] ([id number]) [address], [address] [place] [address] Anion gap [Moles/Vol] 7 mmol/L Normal 5-15 [facility] Comment on above: Performed By: #### C BCA, BMP #### [facility] ([id number]) [address], [address] [place] [address] AST [Catalytic activity/Vol] 17 U/L Normal 0-41 [facility] Comment on above: Performed By: #### C BCA, BMP #### [facility] ([id number]) [address], [address] [place] [address] Bilirubin [Mass/Vol] 1.7 mg/dL High 0.3-1.2 [facility] Comment on above: Performed By: #### C BCA, BMP #### [facility] ([id number]) [address], [address] [place] [address] Calcium [Mass/Vol] 7.9 mg/dL Low 8.5-10.5 [facility] Comment on above: Performed By: #### C BCA, BMP #### [facility] ([id number]) [address], [address] [place] [address] Chloride [Moles/Vol] 98 mmol/L Normal 98-109 [facility] Comment on above: Performed By: #### C BCA, BMP #### [facility] ([id number]) [address], [address] [place] [address] CO2 [Moles/Vol] 26 mmol/L Normal 22-32 [facility] Comment on above: Performed By: #### C BCA, BMP #### [facility] ([id number]) [address], [address] [place] [address] Creatinine [Mass/Vol] 0.96 mg/dL Normal 0.70-1.20 [facility] Comment on above: Result Comment: METH OD TRACEABLE TO IDMS STANDARD Performed By: #### C BCA, BMP #### [facility] ([id number]) [address], [address] [place] [address] GFR/1.73 sq M.predicted among non-blacks MDRD (S/P/Bld) [Vol rate/Area] 81 mL/min/{1.73_m2} Normal >59 [facility] Comment on above: Result Comment: Reported eGFR is based on the CKD-EPI 2020 equation that does not use a race coefficient. Performed By: #### C BCA, BMP #### [facility] ([id number]) [address], [address] [place] [address] Glucose [Mass/Vol] 96 mg/dL Normal 65-99 [facility] Comment on above: Performed By: #### C BCA, BMP #### [facility] ([id number]) [address] [place] [address] Potassium [Moles/Vol] 3.9 mmol/L Normal 3.5-5.0 [facility] Comment on above: Performed By: #### C BCA, BMP #### [facility] ([id number]) [address] [address] [place] [address] Protein [Mass/Vol] 5.8 g/dL Low 6.0-8.0 [facility] Comment on above: Performed By: #### C BCA, BMP #### [facility] ([id number]) [address], [facility] [address] [place] [address] Sodium [Moles/Vol] 131 mmol/L Low 134-146 [facility] Comment on above: Performed By: #### C BCA, BMP #### [facility] ([id number]) [address] [place] [address] Urea nitrogen [Mass/Vol] 17 mg/dL Normal 5-27 [facility] Comment on above: Performed By: #### C BCA, BMP #### [facility] ([id number]) [address] [address] [address] CHEST W CONTon 12-06-2023 CT CHEST [...] Kameron Jarrett MD on 12/06/2023 3:[address] [facility] [address] Chest limited W contrast Javier 12-06-2023 [...] Kameron Jarrett MD on 12/06/2023 3:45 PM [facility] Kameron Jarrett MD - 12/06/2023 CT of [...] Kameron Jarrett MD on 12/06/2023 3:45 PM [facility] Radiology Study observation (narrative) [facility] CT Chest limited W contrast IVOrdered By: Kameron Jarrett on 12-06-2023 [facility] Work Phone: Comprehensive metabolic pane jace 12-06-2023 Albumin [Mass/Vol] 3.3 g/dL 3.2 - 5.3 g/dL [facility] ALP [Catalytic activity/Vol] 22 U/L Low 39 - 130 U/L [facility] ALT No additional P-5'-P [Catalytic activity/Vol] 13 U/L 0 - 40 U/L [facility] Anion gap [Moles/Vol] 7 mmol/L 5 - 15 mmol/L [facility] AST [Catalytic activity/Vol] 17 U/L 0 - 41 U/L [facility] Bilirubin [Mass/Vol] 1.7 mg/dL High 0.3 - 1.2 mg/dL [facility] Calcium [Mass/Vol] 7.9 mg/dL Low 8.5 - 10. 5 mg/dL [facility] Chloride [Moles/Vol] 98 mmol/L 98 - 109 mmol/L [facility] CO2 [Moles/Vol] 26 mmol/L 22 - 32 mmol/L [facility] Creatinine [Mass/Vol] 0.96 mg/dL 0.70 - 1.20 mg/dL [facility] Comment on above: METHOD TRACEABLE TO [facility] STANDARD eGFR (CKD-EPI)non-race dependent 81 - PINF [facility] Comment on above: Reported eGFR is based on the CKD-EPI 2020 equation that does not use a race coefficient. Glucose [Mass/Vol] 96 mg/dL 65 - 99 mg/dL [facility] Interpretation and review of laboratory results Abnormal [facility] Potassium [Moles/Vol] 3.9 mmol/L 3.5 - 5.0 mmol/L [facility] Protein [Mass/Vol] 5.8 g/dL Low 6.0 - 8.0 g/dL [facility] Sodium [Moles/Vol] 131 mmol/L Low 134 - 146 mmol/L [facility] Urea nitrogen [Mass/Vol] 17 mg/dL 5 - 27 mg/dL [facility] MAGNESIUMon 12-06-2023 Magnesium [Mass/Vol] 1.9 mg/dL Normal 1.8-2.6 [facility] Comment on above: Performed By: #### C BCA, BMP #### [facility] ([id number]) [address] [place] [address], [address] [place] [address] Magnesiumon 12-06-2023 Magnesium [Mass/Vol] 1.9 mg/dL 1.8 - 2.6 mg/dL [facility] No Panel Informationon 12-05 [facility] CBC without diffon Erythrocyte distribution width (RBC) [Ratio] 13.0 % 11.5 - 15.0 % [facility] Hematocrit (Bld) [Volume fraction] 38.1 % Low 39 - 49 % [facility] Hemoglobin (Bld) [Mass/Vol] 13.1 g/dL 13.0 - 17.0 g/dL [facility] Interpretation and review of laboratory results Abnormal [facility] MCH (RBC) [Entitic mass] 31.2 pg 27 - 34 pg [facility] MCHC (RBC) [Mass/Vol] 34.4 g/dL 32 - 36 g/dL [facility] MCV (RBC) [Entitic vol] 91 fL 80 - 100 fL [facility] Platelet mean volume (Bld) [Entitic vol] 8.2 fL 7 - 12 fL [facility] Platelets (Bld) [#/Vol] 243 10*3/uL [facility] RBC (Bld) [#/Vol] 4.20 10*6/uL [facility] WBC corrected for nucl RBC Auto (Bld) [#/Vol] 12.6 High [facility] COMPLETE BLOOD COUNTon 12-04 Erythrocyte distribution width (RBC) [Ratio] 13.0 % Normal 11.5-15.0 [facility] Comment on above: Performed By: #### Casey BARTON, BMP #### [facility] ([id number]) [address], [address] [place] [address] Hematocrit (Bld) [Volume fraction] 38.1 % Low 39-49 [facility] Comment on above: Performed By: #### Casey BARTON, BMP #### [facility] ([id number]) [address], [address] [place] [address] Hemoglobin (Bld) [Mass/Vol] 13.1 g/dL Normal 13.0-17.0 [facility] Comment on above: Performed By: #### Casey BCA, BMP #### [facility] ([id number]) [address], [address] [place] [address] MCH (RBC) [Entitic mass] 31.2 pg Normal 27-34 [facility] Comment on above: Performed By: #### Casey BCA, BMP #### [facility] ([id number]) [address], [address] [place] [address] MCHC (RBC) [Mass/Vol] 34.4 g/dL Normal 32-36 [facility] Comment on above: Performed By: #### Casey BCA, BMP #### [facility] ([id number]) [address], [address] [place] [address] MCV (RBC) [Entitic vol] 91 fL Normal 80-100 [facility] Comment on above: Performed By: #### C ORALIA, BMP #### [facility] ([id number]) [address], [address] [place] [address] Platelet mean volume (Bld) [Entitic vol] 8.2 fL Normal 7-12 [facility] Comment on above: Performed By: #### C ORALIA, BMP #### [facility] ([id number]) [address], [address] [place] [address] Platelets (Bld) [#/Vol] 243 10*3/uL Normal 150-450 [facility] Comment on above: Performed By: #### C ORALIA, BMP #### [facility] ([id number]) [address], [address] [place] [address] RBC COUNT 4.20 X10E12/L Normal 4.10-5.70 [facility] Comment on above: Performed By: #### C ORALIA, BMP #### [facility] ([id number]) [address], [facility] [address] [place] [address] WBC (Bld) [#/Vol] 12.6 10*3/uL High 4.0-11.0 [facility] Comment on above: Performed By: #### C ORALIA, BMP #### [facility] ([id number]) [address], [address] [place] [address] COMPREHENSIVE METABOLIC PANE Jace 12-05-2023 Albumin [Mass/Vol] 3.3 g/dL Normal 3.2-5.3 [facility] Comment on above: Performed By: #### C BCA, BMP #### [facility] ([id number]) [address], [address] [place] [address] ALP [Catalytic activity/Vol] 25 U/L Low 39-130 [facility] Comment on above: Performed By: #### C BCA, BMP #### [facility] ([id number]) [address], [address] [place] [address] ALT [Catalytic activity/Vol] 16 U/L Normal 0-40 [facility] Comment on above: Performed By: #### C BCA, BMP #### [facility] ([id number]) [address], [address] [place] [address] Anion gap [Moles/Vol] 7 mmol/L Normal 5-15 [facility] Comment on above: Performed By: #### C BCA, BMP #### [facility] ([id number]) [address], [address] [place] [address] AST [Catalytic activity/Vol] 16 U/L Normal 0-41 [facility] Comment on above: Performed By: #### C BCA, BMP #### [facility] ([id number]) [address], [address] [place] [address] Bilirubin [Mass/Vol] 1.6 mg/dL High 0.3-1.2 [facility] Comment on above: Performed By: #### C BCA, BMP #### [facility] ([id number]) [address], [address] [place] [address] Calcium [Mass/Vol] 7.9 mg/dL Low 8.5-10.5 [facility] Comment on above: Performed By: #### C BCA, BMP #### [facility] ([id number]) [address], [address] [place] [address] Chloride [Moles/Vol] 97 mmol/L Low 98-109 [facility] Comment on above: Performed By: #### C BCA, BMP #### [facility] ([id number]) [address], [address] [place] [address] CO2 [Moles/Vol] 25 mmol/L Normal 22-32 [facility] Comment on above: Performed By: #### C BCA, BMP #### [facility] ([id number]) [address], [address] [place] [address] Creatinine [Mass/Vol] 0.88 mg/dL Normal 0.70-1.20 [facility] Comment on above: Result Comment: METH OD TRACEABLE TO IDMS STANDARD Performed By: #### C BCA, BMP #### [facility] ([id number]) [address], [address] [place] [address] GFR/1.73 sq M.predicted among non-blacks MDRD (S/P/Bld) [Vol rate/Area] 89 mL/min/{1.73_m2} Normal >59 [facility] Comment on above: Result Comment: Reported eGFR is based on the CKD-EPI 2020 equation that does not use a race coefficient. Performed By: #### C BCA, BMP #### [facility] ([id number]) [address], [address] [place] [address] Glucose [Mass/Vol] 134 mg/dL High 65-99 [facility] Comment on above: Performed By: #### C BCA, BMP #### [facility] ([id number]) [address], [address] [place] [address] Potassium [Moles/Vol] 4.0 mmol/L Normal 3.5-5.0 [facility] Comment on above: Performed By: #### C BCA, BMP #### [facility] ([id number]) [address], [address] [place] [address] Protein [Mass/Vol] 5.6 g/dL Low 6.0-8.0 [facility] Comment on above: Performed By: #### C BCA, BMP #### [facility] ([id number]) [address], [address] [place] [address] Sodium [Moles/Vol] 129 mmol/L Low 134-146 [facility] Comment on above: Performed By: #### C BCA, BMP #### [facility] ([id number]) [address], [address] [place] [address] Urea nitrogen [Mass/Vol] 15 mg/dL Normal 5-27 [facility] Comment on above: Performed By: #### C BCA, BMP #### [facility] ([id number]) [address], [address] [place] [address] Comprehensive metabolic pane jace 12-05-2023 Albumin [Mass/Vol] 3.3 g/dL 3.2 - 5.3 g/dL [facility] ALP [Catalytic activity/Vol] 25 U/L Low 39 - 130 U/L [facility] ALT No additional P-5'-P [Catalytic activity/Vol] 16 U/L 0 - 40 U/L [facility] Anion gap [Moles/Vol] 7 mmol/L 5 - 15 mmol/L [facility] AST [Catalytic activity/Vol] 16 U/L 0 - 41 U/L [facility] Bilirubin [Mass/Vol] 1.6 mg/dL High 0.3 - 1.2 mg/dL [facility] Calcium [Mass/Vol] 7.9 mg/dL Low 8.5 - 10. 5 mg/dL [facility] Chloride [Moles/Vol] 97 mmol/L Low 98 - 109 mmol/L [facility] CO2 [Moles/Vol] 25 mmol/L 22 - 32 mmol/L [facility] Creatinine [Mass/Vol] 0.88 mg/dL 0.70 - 1.20 mg/dL [facility] Comment on above: METHOD TRACEABLE TO IDKY STANDARD eGFR (CKD-EPI)non-race dependent 89 - PINF [facility] Comment on above: Reported eGFR is based on the CKD-EPI 2020 equation that does not use a race coefficient. Glucose [Mass/Vol] 134 mg/dL High 65 - 99 mg/dL [facility] Interpretation and review of laboratory results Abnormal [facility] Potassium [Moles/Vol] 4.0 mmol/L 3.5 - 5.0 mmol/L [facility] Protein [Mass/Vol] 5.6 g/dL Low 6.0 - 8.0 g/dL [facility] Sodium [Moles/Vol] 129 mmol/L Low 134 - 146 mmol/L [facility] Urea nitrogen [Mass/Vol] 15 mg/dL 5 - 27 mg/dL [facility] ECG 12 leadon 12-05-2023 TRACEMASTERVUE [facility] Free T4 [Mass/Vol]on [facility] MAGNESIUMon 12-05-2023 Magnesium [Mass/Vol] 2.1 mg/dL Normal 1.8-2.6 [facility] Comment on above: Performed By: #### Casey BARTON, BMP #### [facility] ([id number]) [address], [address] [place] [address] Magnesiumon 12-05-2023 Magnesium [Mass/Vol] 2.1 mg/dL 1.8 - 2.6 mg/dL [facility] No Panel Informationon 12-04 [facility] SODIUMon 12-05-2023 Sodium [Moles/Vol] 129 mmol/L Low 134-146 [facility] Comment on above: Performed By: #### Casey BARTON, BMP #### [facility] ([id number]) [address], [address] [place] [address] Sodiumon 12-05-2023 Sodium [Moles/Vol] 129 mmol/L Low 134 - 146 mmol/L [facility] Sodium [Moles/Vol]on Interpretation and review of laboratory results Abnormal [facility] T4, freeon 12-05-2023 Free T4 [Mass/Vol] 0.84 ng/dL 0.61 - 1. 60 ng/dL [facility] Comment on above: CLIA ID [id number] URINALYSISon 12-05-2023 Bilirubin Ql (U) Negative Normal NEG [facility] Comment on above: Performed By: #### Casey BARTON, BMP #### [facility] ([id number]) [address] [place] [address] BLOOD/HGB Negative Normal NEG [facility] Comment on above: Performed By: #### C ORALIA, BMP #### [facility] ([id number]) [address] [place] [address] Color (U) YELLOW Normal YELLOW [facility] Comment on above: Performed By: #### C ORALIA, BMP #### [facility] ([id number]) [address], [address] [place] [address] Glucose Ql (U) Negative Normal NEG [facility] Comment on above: Performed By: #### C ORALIA, BMP #### [facility] ([id number]) [address], [address] [place] [address] Ketones Ql (U) Negative Normal NEG [facility] Comment on above: Performed By: #### C ORALIA, BMP #### [facility] ([id number]) [address] [place] [address] Leukocyte esterase Test strip Ql (U) Negative Normal NEG [facility] Comment on above: Performed By: #### C ORALIA, BMP #### [facility] ([id number]) [address] [place] [address] Nitrite Ql (U) Negative Normal NEG [facility] Comment on above: Performed By: #### C ORALIA, BMP #### [facility] ([id number]) [address], [address] [place] [address] pH (U) 6.0 [pH] Normal 5.0-8.5 [facility] Comment on above: Performed By: #### C ORALIA, BMP #### [facility] ([id number]) [address], [address] [place] [address] Protein Ql (U) Negative Normal NEG [facility] Comment on above: Performed By: #### C BCA, BMP #### [facility] ([id number]) [address], [address] [place] [address] Specific gravity (U) [Rel density] >1.030 Normal 1.003-1.035 [facility] Comment on above: Performed By: #### Casey BARTON, BMP #### [facility] ([id number]) [address], [address] [place] [address] TURBIDITY CLEAR Normal CLEAR [facility] Comment on above: Performed By: #### C ORALIA, BMP #### [facility] ([id number]) [address], [address] [place] [address] Urobilinogen Qn (U) 1.0 {Dia'U}/dL Normal <1.1 [facility] Comment on above: Performed By: #### Casey BARTON, BMP #### [facility] ([id number]) [address], [address] [place] [address] Urinalysison 12-05-2023 Bilirubin Ql (U) Negative Negative^Ne g ative [facility] Color (U) YELLOW YELLOW^YELLO W [facility] Glucose (U) [Mass/Vol] Negative Negative^Neg ative mg/dL [facility] Hemoglobin Auto test strip Ql (U) Negative Negative^Neg ative [facility] Ketones (U) [Mass/Vol] Negative Negative^Neg ative mg/dL [facility] Leukocyte esterase Auto test strip Ql (U) Negative Negative^Neg ative [facility] Nitrite Auto test strip Ql (U) Negative Negative^Neg ative [facility] pH (U) 6.0 [pH] 5.0 - 8.5 [facility] Protein (U) [Mass/Vol] Negative Negative^Neg ative mg/dL [facility] Specific gravity Refractometry automated (U) [Rel density] 1.003 - 1.035 [facility] Turbidity Ql (U) CLEAR CLEAR^CLEAR [facility] Urobilinogen Qn (U) 1.0 NINF [facility] XR CHEST 2 VWSon 12-05-2023 XR [...] Wan MD on 12/05/2023 10:52 AM Normal [facility] XR Chest PA and Lateralon Indication: Leukocytosis. [...] Anastacia Wan MD on 12/05/2023 10:52 AM Anastacia Scanlon M D - 12/05/2023 Indication: Leukocytosis. TECHNIQUE: [...] Anastacia Wan MD on 12/05/2023 10:52 AM [facility] Radiology Study observation (narrative) [facility] XR Chest PA and LateralOrder ed By: Anastacia Wan on 12-05-2023 [facility] Work Phone: ABO Rh Repeaton 12-04-2023 ABO B [email or web address] Rh Nom (Bld) Positive [facility] CBC without diffon Erythrocyte distribution width (RBC) [Ratio] 13.1 % 11.5 - 15.0 % [facility] Hematocrit (Bld) [Volume fraction] 42.1 % 39 - 49 % [facility] Hemoglobin (Bld) [Mass/Vol] 14.5 g/dL 13.0 - 17.0 g/dL [facility] Interpretation and review of laboratory results Abnormal [facility] MCH (RBC) [Entitic mass] 31.2 pg 27 - 34 pg [facility] MCHC (RBC) [Mass/Vol] 34.3 g/dL 32 - 36 g/dL [facility] MCV (RBC) [Entitic vol] 91 fL 80 - 100 fL [facility] Platelet mean volume (Bld) [Entitic vol] 7.9 fL 7 - 12 fL [facility] Platelets (Bld) [#/Vol] 268 10*3/uL [facility] RBC (Bld) [#/Vol] 4.63 10*6/uL [facility] WBC corrected for nucl RBC Auto (Bld) [#/Vol] 14.2 High [facility] COMPLETE BLOOD COUNTon 12-03 Erythrocyte distribution width (RBC) [Ratio] 13.1 % Normal 11.5-15.0 [facility] Comment on above: Performed By: #### C DIAMANTE [facility], 64293-8, 2777-1, TSHR, 3024-7 #### [facility] [place] ([id number]) [address] [place] [address] 59268 Hematocrit (Bld) [Volume fraction] 42.1 % Normal 39-49 [facility] Comment on above: Performed By: #### C BC, CMP, 40730-3, 2777-1, TSHR, 3024-7 #### [facility] [place] ([id number]) [address] [place] [address] 67618 Hemoglobin (Bld) [Mass/Vol] 14.5 g/dL Normal 13.0-17.0 [facility] Comment on above: Performed By: #### C BC, CMP, , 2776-, TSHR, 3027 #### [facility] [place] ([id number]) [address] [place] [address] 80749 MCH (RBC) [Entitic mass] 31.2 pg Normal 27-34 [facility] Comment on above: Performed By: #### Casey BC, CMP, , 2776-, TSHR, 3027 #### [facility] [place] ([id number]) [address] [place] [address] 24753 MCHC (RBC) [Mass/Vol] 34.3 g/dL Normal 32-36 [facility] Comment on above: Performed By: #### Casey BC, CMP, , 2776-, TSHR, 3027 #### [facility] [place] ([id number]) [address] [place] [address] 14294 MCV (RBC) [Entitic vol] 91 fL Normal 80-100 [facility] Comment on above: Performed By: #### Casey BC, CMP, , 2776-, TSHR, 3027 #### [facility] [place] ([id number]) [address] [place] [address] 13450 Platelet mean volume (Bld) [Entitic vol] 7.9 fL Normal 7-12 [facility] Comment on above: Performed By: #### Casey BC, CMP, 14757-9, 2776-, TSHR, 302-7 #### [facility] [place] ([id number]) [address] [place] [address] 85002 Platelets (Bld) [#/Vol] 268 10*3/uL Normal 150-450 [facility] Comment on above: Performed By: #### Casey BC, CMP, 50903-3, 2776-1, TSHR, 3024-7 #### [facility] [place] ([id number]) [address] [place] [address] 73702 RBC COUNT 4.63 X10E12/L Normal 4.10-5.70 [facility] Comment on above: Performed By: #### C BC, CMP, 81743-4, 2777-1, TSHR, 3024-7 #### [facility] [place] ([id number]) [address] [place] [address] 06175 WBC (Bld) [#/Vol] 14.2 10*3/uL High 4.0-11.0 [facility] Comment on above: Performed By: #### C BC, CMP, 65423-7, 2777-1, TSHR, 3024-7 #### [facility] [place] ([id number]) [address] [place] [address] 04752 COMPREHENSIVE METABOLIC PANE Jace 12-04-2023 Albumin [Mass/Vol] 3.8 g/dL Normal 3.2-5.3 [facility] Comment on above: Performed By: #### C BC, CMP, 16934-2, 2777-1, TSHR, 3024-7 #### [facility] [place] ([id number]) [address] [place] [address] 99678 ALP [Catalytic activity/Vol] 32 U/L Low 39-130 [facility] Comment on above: Performed By: #### C BC, CMP, 18534-6, 2777-1, TSHR, 3024-7 #### [facility] [place] ([id number]) [address] [place] [address] 02566 ALT [Catalytic activity/Vol] 20 U/L Normal 0-40 [facility] Comment on above: Performed By: #### C BC, CMP, 68235-0, 2777-1, TSHR, 3024-7 #### [facility] [place] ([id number]) [address] [place] [address] Anion gap [Moles/Vol] 10 mmol/L Normal 5-15 [facility] Comment on above: Performed By: #### C BC, CMP, , 2776-05, TSHR, 302-7 #### [facility] [place] ([id number]) [address] [place] [address] 46802 AST [Catalytic activity/Vol] 21 U/L Normal 0-41 [facility] Comment on above: Performed By: #### Casey BC, CMP, , 2776-05, TSHR, 3024-7 #### [facility] [place] ([id number]) [address] [place] [address] 61697 Bilirubin [Mass/Vol] 1.6 mg/dL High 0.3-1.2 [facility] Comment on above: Performed By: #### Casey BC, CMP, , 2776-05, TSHR, 3024-7 #### [facility] [place] ([id number]) [address] [place] [address] 34166 Calcium [Mass/Vol] 8.2 mg/dL Low 8.5-10.5 [facility] Comment on above: Performed By: #### Casey BC, CMP, , 2776-05, TSHR, 3024-7 #### [facility] [place] ([id number]) [address] [place] [address] 34721 Chloride [Moles/Vol] 95 mmol/L Low 98-109 [facility] Comment on above: Performed By: #### Casey BC, CMP, , 2776-05, TSHR, 3024-7 #### [facility] [place] ([id number]) [address] [place] [address] 27346 CO2 [Moles/Vol] 25 mmol/L Normal 22-32 [facility] Comment on above: Performed By: #### C BC, CMP, , 2776-05, TSHR, 3024-7 #### [facility] [place] ([id number]) [address] [place] [address] Creatinine [Mass/Vol] 0.91 mg/dL Normal 0.70-1.20 [facility] Comment on above: Result Comment: METH OD TRACEABLE TO IDMS STANDARD Performed By: #### C BC, CMP, , 2776-05, TSHR, 7 #### [facility] [place] ([id number]) [address] [place] [address] 56465 GFR/1.73 sq M.predicted among non-blacks MDRD (S/P/Bld) [Vol rate/Area] 87 mL/min/{1.73_m2} Normal >59 [facility] Comment on above: Result Comment: Reported eGFR is based on the CKD-EPI 2020 equation that does not use a race coefficient. Performed By: #### C BC, CMP, , 2776-05, TSHR, 3027 #### [facility] [place] ([id number]) [address] [place] [address] 65095 Glucose [Mass/Vol] 174 mg/dL High 65-99 [facility] Comment on above: Performed By: #### C BC, CMP, , 2776-05, TSHR, 3024-7 #### [facility] [place] ([id number]) [address] [place] [address] 00446 Potassium [Moles/Vol] 3.8 mmol/L Normal 3.5-5.0 [facility] Comment on above: Performed By: #### C BC, CMP, , 2776-05, TSHR, 3027 #### [facility] [place] ([id number]) [address] [place] [address] 60008 Protein [Mass/Vol] 6.3 g/dL Normal 6.0-8.0 [facility] Comment on above: Performed By: #### C BC, CMP, 56712-7, 2776-1, TSHR, 3024-7 #### [facility] [place] ([id number]) [address] [place] [address] 34907 Sodium [Moles/Vol] 130 mmol/L Low 134-146 [facility] Comment on above: Performed By: #### C BC, CMP, , 2776-, TSHR, 3024-7 #### [facility] [place] ([id number]) [address] [place] [address] 19713 Urea nitrogen [Mass/Vol] 16 mg/dL Normal 5-27 [facility] Comment on above: Performed By: #### C BC, CMP, , 2776-, TSHR, 3024-7 #### [facility] [place] ([id number]) [address] [place] [address] 11268 Comprehensive metabolic pane jace 12-04-2023 Albumin [Mass/Vol] 3.8 g/dL 3.2 - 5.3 g/dL [facility] ALP [Catalytic activity/Vol] 32 U/L Low 39 - 130 U/L [facility] ALT No additional P-5'-P [Catalytic activity/Vol] 20 U/L 0 - 40 U/L [facility] Anion gap [Moles/Vol] 10 mmol/L 5 - 15 mmol/L [facility] AST [Catalytic activity/Vol] 21 U/L 0 - 41 U/L [facility] Bilirubin [Mass/Vol] 1.6 mg/dL High 0.3 - 1.2 mg/dL [facility] Calcium [Mass/Vol] 8.2 mg/dL Low 8.5 - 10. 5 mg/dL [facility] Chloride [Moles/Vol] 95 mmol/L Low 98 - 109 mmol/L [facility] CO2 [Moles/Vol] 25 mmol/L 22 - 32 mmol/L [facility] Creatinine [Mass/Vol] 0.91 mg/dL 0.70 - 1.20 mg/dL [facility] Comment on above: METHOD TRACEABLE TO IDKY STANDARD eGFR (CKD-EPI)non-race dependent 87 - PINF [facility] Comment on above: Reported eGFR is based on the CKD-EPI 2020 equation that does not use a race coefficient. Glucose [Mass/Vol] 174 mg/dL High 65 - 99 mg/dL [facility] Interpretation and review of laboratory results Abnormal [facility] Potassium [Moles/Vol] 3.8 mmol/L 3.5 - 5.0 mmol/L [facility] Protein [Mass/Vol] 6.3 g/dL 6.0 - 8.0 g/dL [facility] Sodium [Moles/Vol] 130 mmol/L Low 134 - 146 mmol/L [facility] Urea nitrogen [Mass/Vol] 16 mg/dL 5 - 27 mg/dL [facility] FREE T4on 12-04-2023 Free T4 [Mass/Vol] 0.84 ng/dL Normal 0.61-1.60 [facility] Comment on above: Performed By: #### C DIAMANTE CMP, 40580-7, 2777-1, TSHR, 3024-7 #### [facility] [place] ([id number]) [address] [place] [address] 33942 MAGNESIUMon 12-04-2023 Magnesium [Mass/Vol] 1.8 mg/dL Normal 1.8-2.6 [facility] Comment on above: Performed By: #### C DIAMANTE CMP, 64324-2, 2777-1, TSHR, 3024-7 #### [facility] [place] ([id number]) [address] [place] [address] 42960 Magnesiumon 12-04-2023 Magnesium [Mass/Vol] 1.8 mg/dL 1.8 - 2.6 mg/dL [facility] No Panel Informationon 12-03 [facility] PHOSPHORUSon 12-04-2023 Phosphate [Mass/Vol] 2.5 mg/dL Normal 2.4-4.9 [facility] Comment on above: Performed By: #### C BC CMP, 29712-2, 2777-1, TSHR, 3024-7 #### [facility] [place] ([id number]) [address] [place] [address] Phosphoruson 12-04-2023 Phosphate [Mass/Vol] 2.5 mg/dL 2.4 - 4.9 mg/dL [facility] TSH WITH REFLEXon 12-04-2023 TSH 0.45 uIU/mL Low 0.49-4.67 [facility] Comment on above: Performed By: #### C BC, CMP, 80295-7, 2777-1, TSHR, 3024-7 #### [facility] [place] ([id number]) [address] [place] [address] TSH with Reflexon 12-04-2023 Interpretation and review of laboratory results Abnormal [facility] TSH Qn 0.45 m[IU]/L [...] Wong MD on 12/04/2023 1:28 PM Normal [facility] XR Knee - right 1 or 2 Views on 12-04-2023 History: Peak aftercare. Knee replacement. Pain Study: Right knee Two view study. Comparison: None Impression: Femoral and tibial components are excellent position. No evidence of periprosthetic fracture or acute complication. Skin fei are noted. Follow-up is planned. Excellent alignment. Finalized by Vidhi Wong MD on 12/04/2023 1:28 PM Vidhi Urena MD - 12/04/2023 History: Peak aftercare. Knee replacement. Pain Study: Right knee Two view study. Comparison: None Impression: Femoral and tibial components are excellent position. No evidence of periprosthetic fracture or acute complication. Skin fei are noted. Follow-up is planned. Excellent alignment. Finalized by Vidhi Wong MD on 12/04/2023 1:28 PM [facility] Radiology Study observation (narrative) [facility] XR Knee - right 1 or 2 Views Ordered By: Vidhi Wong on 12-04-2023 [facility] Work Phone: BASIC METABOLIC PANLon 11-06 Anion gap [Moles/Vol] 10 mmol/L Normal 5-15 [facility] Comment on above: Performed By: #### C BCA, BMP #### [facility] ([id number]) [address], [address] [place] [address] Calcium [Mass/Vol] 8.8 mg/dL Normal 8.5-10.5 [facility] Comment on above: Performed By: #### C BCA, BMP #### [facility] ([id number]) [address], [address] [place] [address] Chloride [Moles/Vol] 99 mmol/L Normal 98-109 [facility] Comment on above: Performed By: #### C BCA, BMP #### [facility] ([id number]) [address], [address] [place] [address] CO2 [Moles/Vol] 27 mmol/L Normal 22-32 [facility] Comment on above: Performed By: #### C BCA, BMP #### [facility] ([id number]) [address], [address] [place] [address] Creatinine [Mass/Vol] 0.80 mg/dL Normal 0.60-1.30 [facility] Comment on above: Result Comment: METH OD TRACEABLE TO IDMS STANDARD Performed By: #### C BCA, BMP #### [facility] ([id number]) [address], [address] [place] [address] eGFR (CKD-EPI) NON-RACE DEPENDENT >90 Normal >59 [facility] Comment on above: Result Comment: Reported eGFR is based on the CKD-EPI 2020 equation that does not use a race coefficient. Performed By: #### C BCA, BMP #### [facility] ([id number]) [address] [address] [place] [address] Glucose [Mass/Vol] 89 mg/dL Normal 65-99 [facility] Comment on above: Performed By: #### C BCA, BMP #### [facility] ([id number]) [address] [address] Potassium [Moles/Vol] 4.2 mmol/L Normal 3.5-5.0 [facility] Comment on above: Performed By: #### Casey BCA, BMP #### [facility] ([id number]) [address] [address] Sodium [Moles/Vol] 136 mmol/L Normal 134-146 [facility] Comment on above: Performed By: #### C BCA, BMP #### [facility] ([id number]) [address] [address] Urea nitrogen [Mass/Vol] 9 mg/dL Normal 5-27 [facility] Comment on above: Performed By: #### Casey BCA, BMP #### [facility] ([id number]) [address] [place] [address] Basic Metabolic Panelon 06-2 Anion gap [Moles/Vol] 10 mmol/L 5 - 15 mmol/L [facility] Calcium [Mass/Vol] 8.8 mg/dL 8.5 - 10. 5 mg/dL [facility] Chloride [Moles/Vol] 99 mmol/L 98 - 109 mmol/L [facility] CO2 [Moles/Vol] 27 mmol/L 22 - 32 mmol/L [facility] Creatinine [Mass/Vol] 0.80 mg/dL 0.60 - 1.30 mg/dL [facility] Comment on above: METHOD TRACEABLE TO IDMS STANDARD eGFR (CKD-EPI)non-race dependent - PINF [facility] Comment on above: Reported eGFR is based on the CKD-EPI 2020 equation that does not use a race coefficient. Glucose [Mass/Vol] 89 mg/dL 65 - 99 mg/dL [facility] Potassium [Moles/Vol] 4.2 mmol/L 3.5 - 5.0 mmol/L [facility] Sodium [Moles/Vol] 136 mmol/L 134 - 146 mmol/L [facility] Urea nitrogen [Mass/Vol] 9 mg/dL 5 - 27 mg/dL [facility] CBC AND AUTO DIFFon 11-07-19 ABSOLUTE BASOPHIL 0.1 X10E9/L Normal 0.0-0.2 [facility] Comment on above: Performed By: #### C ORALIA, BMP #### [facility] ([id number]) [address] [place] [address] ABSOLUTE NEUTROPHIL 4.4 X10E9/L Normal 1.5-6.6 [facility] Comment on above: Performed By: #### Casey BARTON, BMP #### [facility] ([id number]) [address] [place] [address] Basophils/100 WBC (Bld) 1.1 % Normal [facility] Comment on above: Performed By: #### Casey BARTON, BMP #### [facility] ([id number]) [address], [address] [place] [address] Eosinophils (Bld) [#/Vol] 0.1 10*3/uL Normal 0.0-0.4 [facility] Comment on above: Performed By: #### Casey BARTON, BMP #### [facility] ([id number]) [address] [place] [address] Eosinophils/100 WBC (Bld) 1.0 % Normal [facility] Comment on above: Performed By: #### C BCA, BMP #### [facility] ([id number]) [address] [place] [address] Erythrocyte distribution width (RBC) [Ratio] 13.0 % Normal 11.5-15.0 [facility] Comment on above: Performed By: #### C BCA, BMP #### [facility] ([id number]) [address] [place] [address] Hematocrit (Bld) [Volume fraction] 45.8 % Normal 39-49 [facility] Comment on above: Performed By: #### C BCA, BMP #### [facility] ([id number]) [address], [address] [place] [address] Hemoglobin (Bld) [Mass/Vol] 16.0 g/dL Normal 13.0-17.0 [facility] Comment on above: Performed By: #### C BCA, BMP #### [facility] ([id number]) [address], [address] [place] [address] Lymphocytes (Bld) [#/Vol] 1.2 10*3/uL Normal 1.0-3.5 [facility] Comment on above: Performed By: #### C BCA, BMP #### [facility] ([id number]) [address], [address] [place] [address] Lymphocytes/100 WBC (Bld) 19.6 % Normal [facility] Comment on above: Performed By: #### C BCA, BMP #### [facility] ([id number]) [address] [place] [address] MCH (RBC) [Entitic mass] 32.2 pg Normal 27-34 [facility] Comment on above: Performed By: #### C BCA, BMP #### [facility] ([id number]) [address] [place] [address] MCHC (RBC) [Mass/Vol] 35.0 g/dL Normal 32-36 [facility] Comment on above: Performed By: #### Casey BARTON, BMP #### [facility] ([id number]) [address], [address] [place] [address] MCV (RBC) [Entitic vol] 92 fL Normal 80-100 [facility] Comment on above: Performed By: #### C ORALIA, BMP #### [facility] ([id number]) [address] [place] [address] Monocytes (Bld) [#/Vol] 0.6 10*3/uL Normal 0-0.9 [facility] Comment on above: Performed By: #### C ORALIA, BMP #### [facility] ([id number]) [address] [place] [address] Monocytes/100 WBC (Bld) 9.5 % Normal [facility] Comment on above: Performed By: #### Casey BARTON, BMP #### [facility] ([id number]) [address] [place] [address] Neutrophils/100 WBC (Bld) 68.8 % Normal [facility] Comment on above: Performed By: #### Casey BARTON, BMP #### [facility] ([id number]) [address] [place] [address] Platelet mean volume (Bld) [Entitic vol] 8.0 fL Normal 7-12 [facility] Comment on above: Performed By: #### Casey BARTON, BMP #### [facility] ([id number]) [address] [place] [address] Platelets (Bld) [#/Vol] 256 10*3/uL Normal 150-450 [facility] Comment on above: Performed By: #### C ORALIA, BMP #### [facility] ([id number]) [address] [place] [address] RBC COUNT 4.98 X10E12/L Normal 4.10-5.70 [facility] Comment on above: Performed By: #### Casey BARTON, BMP #### [facility] ([id number]) [address] [place] [address] WBC (Bld) [#/Vol] 6.4 10*3/uL Normal 4.0-11.0 [facility] Comment on above: Performed By: #### Casey BARTON, BMP #### [facility] ([id number]) [address] [place] [address] CBC auto differentialon 10-19 Basophils (Bld) [#/Vol] 0.1 10*3/uL [facility] Basophils/100 WBC (Bld) 1.1 % [facility] Eosinophils (Bld) [#/Vol] 0.1 10*3/uL [facility] Eosinophils/100 WBC (Bld) 1.0 % [facility] Erythrocyte distribution width (RBC) [Ratio] 13.0 % 11.5 - 15.0 % [facility] Hematocrit (Bld) [Volume fraction] 45.8 % 39 - 49 % [facility] Hemoglobin (Bld) [Mass/Vol] 16.0 g/dL 13.0 - 17.0 g/dL [facility] Lymphocytes (Bld) [#/Vol] 1.2 10*3/uL [facility] Lymphocytes/100 WBC (Bld) 19.6 % [facility] MCH (RBC) [Entitic mass] 32.2 pg 27 - 34 pg [facility] MCHC (RBC) [Mass/Vol] 35.0 g/dL 32 - 36 g/dL [facility] MCV (RBC) [Entitic vol] 92 fL 80 - 100 fL [facility] Monocytes (Bld) [#/Vol] 0.6 10*3/uL [facility] Monocytes/100 WBC (Bld) 9.5 % [facility] Neutrophils (Bld) [#/Vol] 4.4 10*3/uL [facility] Neutrophils/100 WBC (Bld) 68.8 % [facility] Platelet mean volume (Bld) [Entitic vol] 8.0 fL 7 - 12 fL [facility] Platelets (Bld) [#/Vol] 256 10*3/uL [facility] RBC (Bld) [#/Vol] 4.98 10*6/uL [facility] WBC corrected for nucl RBC Auto (Bld) [#/Vol] 6.4 [facility] XR CHEST 2 VWSon 11-07-2023 XR CHEST 2 VWS XR CHEST 2 VWS XR CHEST 2 VWS INDICATION: Preop examination; Coronary artery disease, unspecified vessel or lesion type, unspecified whether angina present, unspecified whether [place] or transplanted heart; Hypertension, unspecified type; History of myocardial infarction. Coronary artery disease. Chest pain. FINDINGS: Cardiac silhouette is normal in size. Trachea midline. No focal pulmonary consolidation. No pleural effusion. No pneumothorax. IMPRESSION: 1. No acute findings. Finalized by Nghia Tolbert MD on 11/07/2023 9:20 PM Normal [facility] XR Chest PA and Lateralon XR CHEST 2 VWS INDICATION: Preop examination; Coronary artery disease, unspecified vessel or lesion type, unspecified whether angina present, unspecified whether [place] or transplanted heart; Hypertension, unspecified type; History of myocardial infarction. Coronary artery disease. Chest pain. FINDINGS: Cardiac silhouette is normal in size. Trachea midline. No focal pulmonary consolidation. No pleural effusion. No pneumothorax. IMPRESSION: 1. No acute findings. Finalized by Nghia Tolbert MD on 11/07/2023 9:20 PM [facility] Nghia Tolbert MD - 11/07/2023 XR CHEST 2 VWS INDICATION: Preop examination; Coronary artery disease, unspecified vessel or lesion type, unspecified whether angina present, unspecified whether [place] or transplanted heart; Hypertension, unspecified type; History of myocardial infarction. Coronary artery disease. Chest pain. FINDINGS: Cardiac silhouette is normal in size. Trachea midline. No focal pulmonary consolidation. No pleural effusion. No pneumothorax. IMPRESSION: 1. No acute findings. Finalized by Nghia Tolbert MD on 11/07/2023 9:20 PM [facility] Study observation (narrative) [facility] XR Chest PA and LateralOrder ed By: Nghia Tolbert on 11-07-2023 [facility] Work Phone: CBC AUTO DIFFon 07-04-2022 BASO # 0.1 103/ul Normal 0.0-0.1 [facility] Comment on above: Performed By: #### C BC #### [facility] [address] [place] [address] Dr. Cami Bishop Basophils/100 WBC (Bld) 0.9 % Normal 0.2-2.0 [facility] Comment on above: Performed By: #### C BC #### [facility] [address] [place] [address] Dr. Cami Bishop EO # 0.1 103/ul Normal 0.0-0.7 [facility] Comment on above: Performed By: #### C BC #### [facility] [address] [place] [address] Dr. Cami Bishop Eosinophils/100 WBC (Bld) 2.0 % Normal 0.9-7.0 [facility] Comment on above: Performed By: #### C BC #### [facility] [address] [place] [address] Dr. Cami Bishop Erythrocyte distribution width (RBC) [Ratio] 12.2 % Normal 11.0-15.0 [facility] Comment on above: Performed By: #### C BC #### [facility] [address] [place] [address] Dr. Cami Bishop Hematocrit (Bld) [Volume fraction] 45.3 % Normal 42.0-54.0 [facility] Comment on above: Performed By: #### C BC #### [facility] [address] [place] [address] Dr. Cami Bishop Hemoglobin (Bld) [Mass/Vol] 16.0 g/dL Normal 14.0-18.0 [facility] Comment on above: Performed By: #### C BC #### [facility] [address] [place] [address] Dr. Cami Bishop IG # 0.04 10e3/ul Critically high 0.00-0.03 [facility] Comment on above: Performed By: #### C BC #### [facility] [address] [place] [address] Dr. Cami Bishop IG % 0.7 % Critically high 0.0-0.5 [facility] Comment on above: Performed By: #### C BC #### [facility] [address] [place] [address] Dr. Cami Bishop LYMPH # 1.6 103/ul Normal 1.2-3.8 [facility] Comment on above: Performed By: #### C BC #### [facility] [address] [place] [address] Dr. Cami Bishop Lymphocytes/100 WBC (Bld) 28.6 % Normal 20.5-60.0 [facility] Comment on above: Performed By: #### C BC #### [facility] [address] [place] [address] Dr. Cami Bishop MANUAL DIFF REQ NO Normal [facility] Comment on above: Performed By: #### C BC #### [facility] [address] [place] [address] Dr. Cami Bishop MCH (RBC) [Entitic mass] 31.2 pg Normal 25.9-34.0 [facility] Comment on above: Performed By: #### C BC #### [facility] [address] [place] [address] Dr. Cami Bishop MCHC (RBC) [Mass/Vol] 35.3 g/dL Critically high 29.9-35.2 [facility] Comment on above: Performed By: #### C BC #### [facility] [address] [place] [address] Dr. Cami Bishop MCV (RBC) [Entitic vol] 88.3 fL Normal 80.0-94.0 [facility] Comment on above: Performed By: #### C BC #### [facility] [address] [place] [address] Dr. Cami Bishop MONO # 0.6 103/ul Normal 0.3-0.8 [facility] Comment on above: Performed By: #### C BC #### [facility] [address] [place] [address] Dr. Cami Bishop Monocytes/100 WBC (Bld) 11.2 % Normal 1.7-12.0 [facility] Comment on above: Performed By: #### C BC #### [facility] [address] [place] [address] Dr. Cami Bishop NEUT # 3.2 103/ul Normal 1.4-6.5 [facility] Comment on above: Performed By: #### C BC #### [facility] [address] [place] [address] Dr. Cami Bishop Neutrophils/100 WBC (Bld) 56.6 % Normal 43.0-75.0 [facility] Comment on above: Performed By: #### C BC #### [facility] [address] [place] [address] Dr. Cami Bishop Platelet mean volume (Bld) [Entitic vol] 9.6 fL Normal 9.5-13.5 [facility] Comment on above: Performed By: #### C BC #### [facility] [address] [place] [address] Dr. Cami Bishop PLT 229 103/ul Normal 150-450 [facility] Comment on above: Performed By: #### C BC #### [facility] [address] [place] [address] Dr. Cami Bishop RBC 5.13 106/ul Normal 4.70-6.10 [facility] Comment on above: Performed By: #### C BC #### [facility] [address] [place] [address] Dr. Cami Bishop WBC 5.6 103/ul Normal 4.0-11.0 [facility] Comment on above: Performed By: #### C BC #### [facility] [address] [address] [address] Cami Bishop FREE T3on 07-04-2022 FREE T3 2.50 pg/mlL Normal 2.18-3.98 [facility] Comment on above: Performed By: #### T SH, LIPID, FT3, T4, CMP #### [facility] [address] [address] [address] Cami Bishop GLYCOHEMOGLOBIN A1Con 2022 ADA RECOMMENDATION SEE BELOW Normal [facility] Comment on above: Result Comment: ADA RECOMMENDED LIMIT 4.0 - 6.0 ADA THERAPEUTIC TARGET < 7.0 ACTION SUGGESTED > 7.0 Performed By: #### A 1C #### [facility] [address] [place] [address] Dr. Cami Bishop Glucose [Mass/Vol] 105 mg/dL Normal [facility] Comment on above: Performed By: #### A 1C #### [facility] [address] [place] [address] Dr. Cami Bishop HbA1c (Bld) [Mass fraction] 5.3 % Normal 4.5-6.2 [facility] Comment on above: Performed By: #### A 1C #### [facility] [address] [place] [address] Dr. Cami Bishop LIPID PROFILEon 07-04-2022 CHOL-HDL RATIO NORM SEE BELOW Normal [facility] Comment on above: Result Comment: 3.3 - 4.4 LOW RISK 4.4 - 7.1 AVERAGE RISK 7.1 - 11.0 MODERATE RISK >11.0 HIGH RISK Performed By: #### T SH, LIPID, FT3, T4, CMP #### [facility] [address] [address] [address] Cami Bishop Cholesterol [Mass/Vol] 123 mg/dL Normal <=200 [facility] Comment on above: Performed By: #### T SH, LIPID, FT3, T4, CMP #### [facility] [address] [address] [address] Cami Bishop Cholesterol in HDL [Mass/Vol] 39 mg/dL Critically low 40-60 [facility] Comment on above: Performed By: #### T SH, LIPID, FT3, T4, CMP #### [facility] [address] [address] [address] Cami Bishop Cholesterol in LDL [Mass/Vol] 55.6 mg/dL Normal [facility] Comment on above: Performed By: #### T SH, LIPID, FT3, T4, CMP #### [facility] [address] [address] [address] Cami Bishop Cholesterol.total/ Cholesterol in HDL [Mass ratio] 3.2 {ratio} Normal [facility] Comment on above: Performed By: #### T SH, LIPID, FT3, T4, CMP #### [facility] [address] [place] [address] Dr. Cami Bishop HDL NORMAL > or = 60 mg/dl - LO W CARDIOVASCULAR RISK <40 mg/dl - HIGH CARDIOVASCULAR RISK Normal [facility] Comment on above: Performed By: #### T SH, LIPID, FT3, T4, CMP #### [facility] [address] [place] [address] Dr. Cami Bishop LDL CALC NORMAL SEE BELOW Normal [facility] Comment on above: Result Comment: <100 mg/dl OPTIMAL 100 - 129 mg/dl NEAR OR ABOVE OPTIMAL 130 - 159 mg/dl BORDERLINE HIGH 160 - 189 mg/dl HIGH >190 mg/dl VERY HIGH Performed By: #### T SH, LIPID, FT3, T4, CMP #### [facility] [address] [place] [address] Dr. Cami Bishop Triglyceride [Mass/Vol] 142 mg/dL Normal <=150 [facility] Comment on above: Performed By: #### T SH, LIPID, FT3, T4, CMP #### [facility] [address] [place] [address] Dr. Cami Bishop VLDL CALC 28.4 mg/dL Normal [facility] Comment on above: Performed By: #### T SH, LIPID, FT3, T4, CMP #### [facility] [address] [place] [address] Dr. Cami Bishop PROF 14(COMP METB)on 023 Albumin [Mass/Vol] 3.8 g/dL Normal 3.4-5.0 [facility] Comment on above: Performed By: #### T SH, LIPID, FT3, T4, CMP #### [facility] [address] [place] [address] Dr. Cami Bishop Albumin/Globulin [Mass ratio] 1.3 {ratio} Normal [facility] Comment on above: Performed By: #### T SH, LIPID, FT3, T4, CMP #### [facility] [address] [place] [address] Dr. Cami Bishop ALP [Catalytic activity/Vol] 44 U/L Critically low 46-116 [facility] Comment on above: Performed By: #### T SH, LIPID, FT3, T4, CMP #### [facility] [address] [place] [address] Dr. Cami Bishop ALT [Catalytic activity/Vol] 36 U/L Normal 16-63 [facility] Comment on above: Performed By: #### T SH, LIPID, FT3, T4, CMP #### [facility] [address] [place] [address] Dr. Cami Bishop Anion gap [Moles/Vol] 9.3 mmol/L Normal [facility] Comment on above: Performed By: #### T SH, LIPID, FT3, T4, CMP #### [facility] [address] [place] [address] Dr. Cami Bishop AST [Catalytic activity/Vol] 22 U/L Normal 15-37 [facility] Comment on above: Performed By: #### T SH, LIPID, FT3, T4, CMP #### [facility] [address] [address] [address] Cami Bishop Bilirubin [Mass/Vol] 1.4 mg/dL Critically high 0.2-1.0 [facility] Comment on above: Performed By: #### T SH, LIPID, FT3, T4, CMP #### [facility] [address] [place] [address] Dr. Cami Bishop Calcium [Mass/Vol] 8.9 mg/dL Normal 8.5-10.1 [facility] Comment on above: Performed By: #### T SH, LIPID, FT3, T4, CMP #### [facility] [address] [address] [address] Cami Bishop Chloride [Moles/Vol] 98 mmol/L Normal 98-107 [facility] Comment on above: Performed By: #### T SH, LIPID, FT3, T4, CMP #### [facility] [address] [address] [address] Cami Bishop CO2 [Moles/Vol] 32.7 mmol/L Critically high 21.0-32.0 [facility] Comment on above: Performed By: #### T SH, LIPID, FT3, T4, CMP #### [facility] [address] [place] [address] Dr. Cami Bishop Creatinine [Mass/Vol] 0.95 mg/dL Normal 0.70-1.30 [facility] Comment on above: Performed By: #### T SH, LIPID, FT3, T4, CMP #### [facility] [address] [place] [address] Dr. Cami Bishop EGFR-AF [place] >60 Normal >=60 [facility] Comment on above: Performed By: #### T SH, LIPID, FT3, T4, CMP #### [facility] [address] [place] [address] Dr. Cami Bishop EGFR-NON AF [place] >60 Normal >=60 [facility] Comment on above: Performed By: #### T SH, LIPID, FT3, T4, CMP #### [facility] [address] [place] [address] Dr. Cami Bishop Globulin (S) [Mass/Vol] 2.9 g/dL Normal [facility] Comment on above: Performed By: #### T SH, LIPID, FT3, T4, CMP #### [facility] [address] [place] [address] Dr. Cami Bishop Glucose [Mass/Vol] 102 mg/dL Normal 74-106 [facility] Comment on above: Performed By: #### T SH, LIPID, FT3, T4, CMP #### [facility] [address] [place] [address] Dr. Cami Bishop Potassium [Moles/Vol] 4.0 mmol/L Normal 3.5-5.1 [facility] Comment on above: Performed By: #### T SH, LIPID, FT3, T4, CMP #### [facility] [address] [place] [address] Dr. Cami Bishop Protein [Mass/Vol] 6.7 g/dL Normal 6.4-8.2 [facility] Comment on above: Performed By: #### T SH, LIPID, FT3, T4, CMP #### [facility] [address] [place] [address] Dr. Cami Bishop Sodium [Moles/Vol] 136 mmol/L Normal 136-145 [facility] Comment on above: Performed By: #### T SH, LIPID, FT3, T4, CMP #### [facility] [address] [place] [address] Dr. Cami Bishop Urea nitrogen [Mass/Vol] 14.0 mg/dL Normal 7.0-18.0 [facility] Comment on above: Performed By: #### T SH, LIPID, FT3, T4, CMP #### [facility] [address] [place] [address] Dr. Cami Bishop Urea nitrogen/Creatinin e [Mass ratio] 14.7 mg/mg Normal [facility] Comment on above: Performed By: #### T SH, LIPID, FT3, T4, CMP #### [facility] [address] [place] [address] Dr. Cami Bishop T4on 07-04-2022 T4 [Mass/Vol] 6.80 ug/dL Normal 4.50-12.10 [facility] Comment on above: Performed By: #### T SH, LIPID, FT3, T4, CMP #### [facility] [address] [place] [address] Dr. Cami Bishop TSHon 07-04-2022 TSH 2.193 uIU/mL Normal 0.358-3.740 [facility] Comment on above: Performed By: #### T SH, LIPID, FT3, T4, CMP #### [facility] [address] [place] [address] Dr. Cami Bishop VITAMIN D 25 OHon 07-04-2022 VIT D 25-OH 35.1 ng/mL Normal [facility] Comment on above: Performed By: #### V ITLUIS, PSASC #### [facility] [address] [place] [address] Dr. Cami Bishop VIT D RANGES SEE BELOW Normal [facility] Comment on above: Result Comment: <20 ng/mL Vit D deficient 20 - <30 ng/mL Vit D insufficient 30 - 100 ng/mL Vit D sufficient >100 ng/mL Potential Toxicity Performed By: #### V ROSELINE, PSASC #### [facility] [address] [place] [address] Dr. Cami Bishop ER URINE PROFILEon 2 Bilirubin Ql (U) Negative Normal NEGATIVE [facility] Comment on above: Performed By: #### T SH, LIPID, FT3, T4, CMP #### [facility] [address] [place] [address] Dr. Cami Bishop Clarity (U) CLEAR Normal CLEAR [facility] Comment on above: Performed By: #### T SH, LIPID, FT3, T4, CMP #### [facility] [address] [place] [address] Dr. Cami Bishop Color (U) YELLOW Normal YELLOW [facility] Comment on above: Performed By: #### T SH, LIPID, FT3, T4, CMP #### [facility] [address] [place] [address] Dr. Cami Bishop ERUAHD A micrscopic examination will be performed if indicated. Normal [facility] Comment on above: Performed By: #### T SH, LIPID, FT3, T4, CMP #### [facility] [address] [place] [address] Dr. Cami Bishop Glucose Ql (U) Negative Normal NEGATIVE [facility] Comment on above: Performed By: #### T SH, LIPID, FT3, T4, CMP #### [facility] [address] [address] [address] Cami Bishop Hemoglobin Ql (U) Negative Normal NEGATIVE [facility] Comment on above: Performed By: #### T SH, LIPID, FT3, T4, CMP #### [facility] [address] [address] [address] Cami Bishop Ketones Ql (U) Negative Normal NEGATIVE [facility] [place] [facility] Comment on above: Performed By: #### T SH, LIPID, FT3, T4, CMP #### [facility] [address] [place] [address] Dr. Cami Bishop LEUKOCYTES Negative Normal NEGATIVE [facility] Comment on above: Performed By: #### T SH, LIPID, FT3, T4, CMP #### [facility] [address] [place] [address] Dr. Cami Bishop Nitrite Ql (U) Negative Normal NEGATIVE [facility] Comment on above: Performed By: #### T SH, LIPID, FT3, T4, CMP #### [facility] [address] [place] [address] Dr. Cami Bishop pH (U) 6.0 [pH] Normal 5-9 [facility] Comment on above: Performed By: #### T SH, LIPID, FT3, T4, CMP #### [facility] [address] [place] [address] Dr. Cami Bishop SPEC GRAVITY 1.020 Normal 1.005-<=1.02 5 [facility] Comment on above: Performed By: #### T SH, LIPID, FT3, T4, CMP #### [facility] [address] [place] [address] Dr. Cami Bishop UA PROTEIN Negative Normal NEGATIVE/ TRACE [facility] Comment on above: Performed By: #### T SH, LIPID, FT3, T4, CMP #### [facility] [address] [address] [address] Cami Bishop UR MICRO IND NOT INDICATED Normal [facility] Comment on above: Performed By: #### T SH, LIPID, FT3, T4, CMP #### [facility] [address] [place], [place] [address] Dr. Cami Bishop Urobilinogen Qn (U) 1.0 {Dia'U}/dL Normal 0.2 - 1.0 [facility] Comment on above: Performed By: #### T SH, LIPID, FT3, T4, CMP #### [facility] [address] [place], [place] [address] Dr. Cami Bishop XR LSPINE 2_3 VIEWSon [...] DAMIR MACHADO Date: 2022-01-11 13:56 Normal [facility] Cardiovascular Lab Reporton 03-06-2018 Cardiovascular Lab Report [facility] MR #: [id number] of Physician: Sheryl Stratton M.D.Division of Service Date: 03/05/2018Cardiology Birthdate: [birth year]Adult Cardiovascular Room #: [id number] [id number] Fax Cardiovascular Laboratory ReportFINAL IMPRESSIONS:1. Severe stenosis of the left anterior descending coronary artery, successfully treated by balloon angioplasty and Synergy drug-eluting stent placement.2. Severe stenosis of the posterior descending artery, successfully treated by balloon angioplasty and Synergy drug-eluting stent placement.3. Moderate angiographic, non-hemodynamically significant stenosis of the right coronary artery as assessed by instantaneous wave-free ratio (iFR).4. Nfty-sc-[id number] in-stent restenosis of the mid left anterior [...] rehabilitation.5. Follow up with me in the [facility] in the next 2 to 4 weeks.6. [...] the left radial arteryunder ultrasound guidance. A 6-Australian Glidesheath was inserted withoutdifficulty. Coronary angiography was performed using JR4 and EU2cclliotcs. After reviewing the images, it was elected to proceed with aninterventional procedure.A 6-Australian XB3.5 guide catheter was advanced over J-wire and coaxiallyengaged into the left main coronary ostium. The [place] pressure wire wasadvanced through the catheter with [...] wire trauma. The XB guide catheter wasremoved.A 6-Australian JR4 guide catheter was advanced over the J-wire and coaxiallyengaged into the right coronary ostium. A new [place] pressure wire wasadvanced through the catheter with [...] be transferred to the holding area in stablecondition.[facility] GS:Hemodynamics:RA 13.RV 36/9, 15.PA 36/13 (25).PCWP 15.TPG [...] restenosis. Distal to a small adjacent diagonal, tyixiu-rf-jbcgue left anterior descending shows a short segment [...] 03/05/2018/01:31 P/Moraima Espitia M.D.Date Trans: 03/06/2018 12:18 P/[id number]: Romel Franco M.D. [address], [place] [address] [facility] Vital Signs Date Time Vital Sign Value Performing Clinician Ashoki brissa 12-06-2023 16:54-0400 Body temperature 98.6 [degF] Dakota Bryant DO Work Phone: [employer] 12-06-2023 16:54-0400 Diastolic blood pressure 74 mm[Hg] Dakota Bryant DO Work Phone: [employer] 12-06-2023 16:54-0400 Heart rate 85 /min Dakota Bryant DO Work Phone: [employer] 12-06-2023 16:54-0400 Respiratory rate 16 /min Dakota Bryant DO Work Phone: [employer] 12-06-2023 16:54-0400 SaO2% (BldA) [Mass fraction] 97 % Dakota Bryant DO Work Phone: [employer] 12-06-2023 16:54-0400 Systolic blood pressure 148 mm[Hg] Dakota Bryant DO Work Phone: [employer] 12-04-2023 09:05-0400 Body height 179.1 cm Dakota Bryant DO Work Phone: [employer] 12-04-2023 09:05-0400 Body mass index (BMI) [Ratio] 39.89 kg/m2 Dakota Bryant DO Work Phone: [employer] 12-04-2023 09:05-0400 Body weight 127.91 kg Dakota Bryant DO Work Phone: [employer] 11-07-2023 15:08-0400 Body height 179.1 cm [facility] 2 [facility] 11-07-2023 [id number] Body mass index (BMI) [Ratio] 39.89 kg/m2 Pm 2 [facility] 11-07-2023 15:08040 Body weight 127.91 kg [facility] 2 [facility] Encounters Encounter Date Encounter Type Care Provider Facility Start: 03-03-2025 ambulatory Óscar FIELD Facili ty:[facility] Start: 02-04-2025 ambulatory Óscar FIELD Facili ty:[id number] Start: 01-20-2025 End: 01-20-2025 ambulatory Óscar FIELD Facility: [facility] Start: 12-31-2024 ambulatory Óscar FIELD Facility :[facility] Start: 11-25-2024 End: 11-25-2024 Bamboo flowsheet Mely Paige [employer] Work Phone: [facility] Start: 11-25-2024 End: 11-25-2024 Bamboo flowsheet Mely Paige [employer] Work Phone: [facility] Start: 11-25-2024 End: 11-25-2024 Office outpatient visit 15 minutes Mely Paige [employer] Work Phone: [facility] Comment on above: Primary osteoarthrit is of right knee; Status post right knee replacement Start: 11-25-2024 End: 11-25-2024 ambulatory MELY PAIGE Not Available Start: 05-27-2024 End: 05-27-2024 Office outpatient visit 10 minutes Mely Paige [employer] Work Phone: [facility] Comment on above: Status post right kn ee replacement; Primary osteoarthritis of right knee Start: 05-27-2024 End: 05-27-2024 ambulatory MELY PAIGE Not Available Start: 05-27-2024 End: 05-27-2024 Bamboo flowsheet Mely Paige [employer] Work Phone: [facility] Start: 05-27-2024 End: 05-27-2024 Bamboo flowsheet Mely Paige [employer] Work Phone: [facility] Start: 05-06-2024 End: 05-06-2024 ambulatory EH[facility] Start: 02-25-2024 End: 02-25-2024 Bamboo flowsheet Dakota Bryant DO Work Phone: [facility] Start: 02-25-2024 End: 02-25-2024 Bamboo flowsheet Dakota Mclaughlin Manny DO Work Phone: [facility] Start: 02-25-2024 End: 02-25-2024 Postop follow up visit related to original px Dakota Yepezdleston DO Work Phone: [facility] Comment on above: Status post right kn ee replacement; Primary osteoarthritis of right knee Start: 02-25-2024 End: 02-25-2024 ambulatory DAKOTA YEPEZDLESTON Not Available Start: 02-18-2024 End: 02-18-2024 Bamboo flowsheet Jona Garland PT [facility] Start: 02-18-2024 End: 02-18-2024 Bamboo flowsheet Jona Garland PT [facility] Start: 02-18-2024 End: 02-18-2024 ambulatory Jona Garland PT [facility] Comment on above: Postoperative pain o f right knee (Primary Dx); Presence of artificial knee joint, right Start: 02-13-2024 End: 02-13-2024 Bamboo flowsheet Jona Garland PT [facility] Start: 02-13-2024 End: 02-13-2024 Bamboo flowsheet Jona Asher PT [facility] Start: 02-13-2024 End: 02-13-2024 ambulatory Jona Asher PT [facility] Comment on above: Postoperative pain o f right knee (Primary Dx); Presence of artificial knee joint, right Start: 02-11-2024 End: 02-11-2024 Bamboo flowsheet Jona Asher PT [facility] Start: 02-11-2024 End: 02-11-2024 Bamboo flowsheet Jona Garland PT [facility] Start: 02-11-2024 End: 02-11-2024 ambulatory Jona Garland PT [facility] Comment on above: Postoperative pain o f right knee (Primary Dx); Presence of artificial knee joint, right Start: 02-04-2024 End: 02-04-2024 Bamboo flowsheet Adriana Maureen [employer] [facility] Start: 02-04-2024 End: 02-04-2024 Bamboo flowsheet Adriana Maureen [employer] [facility] Start: 02-04-2024 End: 02-04-2024 ambulatory Adriana Maureen [employer] [facility] Comment on above: Postoperative pain o f right knee (Primary Dx); Presence of artificial knee joint, right Start: 01-30-2024 End: 01-30-2024 Bamboo flowsheet Jona Asher PT [facility] Start: 01-30-2024 End: 01-30-2024 Bamboo flowsheet Jona Asher PT [facility] Start: 01-30-2024 End: 01-30-2024 ambulatory Jona Garland PT [facility] Comment on above: Postoperative pain o f right knee (Primary Dx); Presence of artificial knee joint, right Start: 01-28-2024 End: 01-28-2024 Bamboo flowsheet Adriana Maureen [employer]OPE [employer]RIC WORKER [facility] Start: 01-28-2024 End: 01-28-2024 Bamboo flowsheet Adriana Maureen [employer]IC WORKER [facility] Start: 01-28-2024 End: 01-28-2024 ambulatory Adriana Maureen [employer] WORKER [facility] Comment on above: Postoperative pain o f right knee (Primary Dx); Presence of artificial knee joint, right Start: 01-23-2024 End: 01-23-2024 Bamboo flowsheet Jona Asher PT [facility] Start: 01-23-2024 End: 01-23-2024 Bamboo flowsheet Jona Asher PT [facility] Start: 01-23-2024 End: 01-23-2024 ambulatory Jona Asher PT [facility] Comment on above: Postoperative pain o f right knee (Primary Dx); Presence of artificial knee joint, right Start: 01-21-2024 End: 01-21-2024 Bamboo flowsheet Adriana Maureen [employer]OPE AND F[employer]RIC WORKER [facility] Start: 01-21-2024 End: 01-21-2024 Bamboo flowsheet Adriana Maureen [employer]OPE AND F[employer]RIC WORKER [facility] Start: 01-21-2024 End: 01-21-2024 ambulatory Adriana Maureen [employer]RIC WORKER [facility] Comment on above: Postoperative pain o f right knee (Primary Dx); Presence of artificial knee joint, right Start: 01-16-2024 End: 01-16-2024 Bamboo flowsheet Jona Asher PT [facility] Start: 01-16-2024 End: 01-16-2024 Bamboo flowsheet Jona Garland PT [facility] Start: 01-16-2024 End: 01-16-2024 ambulatory Jona Asher PT [facility] PT Comment on above: Postoperative pain o f right knee (Primary Dx); Presence of artificial knee joint, right Start: 01-14-2024 End: 01-14-2024 Bamboo flowsheet Dakota Bryant DO Work Phone: [facility] Start: 01-14-2024 End: 01-14-2024 Bamboo flowsheet Dakota Bryant DO Work Phone: [facility] Start: 01-14-2024 End: 01-14-2024 ambulatory Adriana Maureen DOPE AND FABRIC WORKER [facility] PT Comment on above: Postoperative pain o f right knee (Primary Dx); Presence of artificial knee joint, right Start: 01-14-2024 End: 01-14-2024 Postop follow up visit related to original px Dakota Bryant DO Work Phone: [facility] Comment on above: Primary osteoarthrit is of right knee; Status post right knee replacement Start: 01-09-2024 End: 01-09-2024 ambulatory Jona Asher PT [facility] PT Comment on above: Postoperative pain o f right knee (Primary Dx); Presence of artificial knee joint, right Start: 01-09-2024 End: 01-09-2024 Bamboo flowsheet Jona Asher PT [facility] Start: 01-09-2024 End: 01-09-2024 Bamboo flowsheet Jona Asher PT [facility] Start: 01-07-2024 End: 01-07-2024 ambulatory Adriana Maureen [employer]OPE AND FABRIC WORKER [facility] Comment on above: Postoperative pain o f right knee (Primary Dx); Presence of artificial knee joint, right Start: 01-07-2024 End: 01-07-2024 Bamboo flowsheet Adriana Maureen DOPE AND FABRIC WORKER [facility] Start: 01-07-2024 End: 01-07-2024 Bamboo flowsheet Adriana Maureen [employer] AND FABRIC WORKER [facility] Start: 01-02-2024 End: 01-02-2024 ambulatory JONADANTE MORRISASHER Not Available Start: 12-31-2023 End: 12-31-2023 ambulatory JONA ASHER Not Available Start: 12-17-2023 End: 12-17-2023 ambulatory DAKOTA BRYANT Not Available Start: 12-09-2023 End: 12-09-2023 ambulatory NEERAJJANAEYVES HUITRON Not Available Start: 12-04-2023 End: 12-06-2023 ambulatory [facility] Start: 12-04-2023 End: 12-06-2023 Subsequent hospital visit by physician Dakota Bryant DO Work Phone: [facility] Comment on above: Status post total kn ee replacement, right (Primary Dx) Start: 11-26-2023 End: 11-26-2023 ambulatory [facility] Start: 11-07-2023 End: 11-07-2023 Patient encounter procedure [facility] Pre-Admission Testing 2 [facility] Comment on above: Preop examination (P rimary Dx); Coronary artery disease, unspecified vessel or lesion type, unspecified whether angina present, unspecified whether [place] or transplanted heart; Hypertension, unspecified type; History of myocardial infarction Start: 11-07-2023 End: 11-07-2023 Preprocedural examination done Pm 2 [facility] Start: 11-07-2023 End: 11-07-2023 ambulatory [facility] Start: 11-07-2023 Encounter for other preprocedural examination [facility] Start: 11-07-2023 End: 11-08-2023 ambulatory DAKOTA BRYANT [facility] Start: 04-22-2023 End: 04-23-2023 ambulatory Navdeep Porter MD Facility:[place] Start: 07-04-2022 End: 07-05-[address] ROMEL FRANCO . Facility: Start: 01-11-2022 End: 01-11-[address] ROMEL FRANCO . Facility: Start: 04-07-2018 End: 04-08-2018 Patient encounter procedure DEFAULT PHYSICIAN Facility:[facility] Start: 03-05-2018 End: 03-06-2018 Patient encounter procedure MORAIMA ESPITIA Facility:[facility] Procedures Date Procedure Procedure Detail Performing Clinician Start: 11-25-2024 Radiologic examinati on knee 1/2 views Mely Paige [employer]ICK [employer] BLOCK MAKER Work Phone: Start: 05-27-2024 Radiologic examinati on knee 1/2 views Mely Paige [employer] BLOCK MAKER Work Phone: Start: 01-14-2024 Radiologic examinati on knee 1/2 views Dakota Bryant Work Phone: Start: 12-06-2023 Ct thorax w/contrast material Dg Ge INSEAM TRIMMER-SURGICAL TECHNICIAN Work Phone: Start: 12-06-2023 Comprehensive metabo lic panel Yanelis Hitchcock INSEAM TRIMMER-SURGICAL TECHNICIAN Work Phone: Start: 12-05-2023 Sodium serum plasma or whole blood Dg Ge INSEAM TRIMMER-SURGICAL TECHNICIAN Work Phone: Start: 12-05-2023 Urnls dip stick/tabl et rgnt auto w/o microscopy Dg Ge INSEAM TRIMMER-SURGICAL TECHNICIAN Work Phone: Start: 12-05-2023 Radiologic exam ches t 2 views Dg Ge INSEAM TRIMMER-SURGICAL TECHNICIAN Work Phone: Start: 12-05-2023 Comprehensive metabo lic panel Yanelis Hitchcock INSEAM TRIMMER-SURGICAL TECHNICIAN Work Phone: Start: 12-04-2023 Comprehensive metabo lic panel Yanelis Hitchcock INSEAM TRIMMER-SURGICAL TECHNICIAN Work Phone: Start: 12-04-2023 Ecg routine ecg w/le ast 12 lds trcg only w/o i&r Dakota Lissette Manny DO Work Phone: Start: 12-04-2023 Radiologic examinati on knee 1/2 views Dakota Yepezdleston DO Work Phone: Start: 12-04-2023 End: 12-04-2023 Arthrp kne condyle&platu medial&lat compartments Dakota Bryant DO Work Phone: Start: 12-04-2023 REPEATED ABORH Dakota Bryant DO Work Phone: Start: 07-04-[address] DESIRAE FRANCO . Comment on above: Performed By: #### V ITAD, PSASC #### [facility] [address] [place] [address] Dr. Cami Bishop Start: 03-05-2018 R HRT CORONARY ARTERY ANGIO EHAB A [facility] Plan of Treatment Date Care Activity Detail Author Start: 12-01-2025 End: 12-01-2025 Patient encounter procedure 12/01/2025 1:00 PM EDT Office Visit [facility] [address] [place] [address] Mely Paige, [employer]KER [address] [place] [address] [facility] Start: 01-18-2025 Influenza vaccination Influenza Vacc ine (#1) [facility] Start: 11-25-2024 End: 11-25-2024 Patient encounter procedure [facility] Comment on above: Primary osteoarthrit is of right knee; Status post right knee replacement Start: 11-06-2024 Adult BMI Screening Adult BMI Screen ing [facility] Start: 11-06-2024 Tobacco Screening Tobacco Screening [facility] Start: 05-27-2024 End: 05-27-2024 Patient encounter procedure 05/27/2024 2:45 PM EST Office Visit [facility] [address] [place] [id number] Mely Paige, [employer]KER [address] [place] [address] Status post right knee replacement; Primary osteoarthritis of right knee [facility] Comment on above: Status post right kn ee replacement; Primary osteoarthritis of right knee Start: 05-26-2024 End: 05-26-2024 Patient encounter procedure 05/26/2024 11:00 AM EST Office Visit [facility] [address] [place] [phone] Mely Paige, BRICK [employer] BLOCK MAKER [address] [place] [address] [facility] Start: 03-24-2024 End: 03-24-2024 Patient encounter procedure 03/24/2024 10:45 AM EST Office Visit [facility] [address] [place] [id number] Dakota Bryant DO [address] [place] [address] [facility] Start: 02-25-2024 End: 02-25-2024 Patient encounter procedure [facility] Comment on above: Status post right kn ee replacement; Primary osteoarthritis of right knee Start: 02-18-2024 End: 02-18-2024 ambulatory 02/18/2024 11:00 AM EDT Treatment [facility] [address] [place] [address] Jona Sterling, PT [facility] Start: 02-13-2024 End: 02-13-2024 ambulatory 02/13/2024 12:30 PM EDT Treatment [facility] [address] [place] [address] Jona Sterling, PT [facility] Start: 02-11-2024 End: 02-11-2024 ambulatory [facility] Comment on above: Arrived Start: 02-06-2024 End: 02-06-2024 ambulatory 02/06/2024 2:00 PM EDT Treatment [facility] [address] [place] [address] Adriana Reddy PTA [facility] Start: 02-04-2024 End: 02-04-2024 [...] above: Arrived Start: 01-19-2024 Influenza vaccination [facility] Start: 01-16-2024 End: 01-16-2024 ambulatory [facility] Comment on above: Arrived Start: 01-14-2024 End: 01-14-2024 ambulatory 01/14/2024 2:00 PM EDT Treatment [facility] [address] [place] [address] Adriana Reddy, DARYL [facility] Start: 01-14-2024 End: 01-14-2024 Patient encounter procedure 01/14/2024 10:30 AM EDT Office Visit [facility] [address] [facility] [address] [place] [address] Dakota Bryant DO [address] [place] [address] [facility] Start: 01-09-2024 End: 01-09-2024 ambulatory 01/09/2024 5:00 PM EDT Treatment [facility] [address] [place] [phone] Jona Sterling, PT [facility] Start: 01-07-2024 End: 01-07-2024 ambulatory 01/07/2024 2:30 PM EDT Treatment [facility] [address] [place] [address] Adriana Reddy, DOPE AND FABRIC WORKER Arrived [facility] Comment on above: Arrived Start: 12-04-2023 End: 12-04-2023 Admission to same day surgery center 12/04/2023 10:15 AM EDT - 12/04/2023 12:45 PM EDT Surgery [facility] [address] [place] [address] Dakota Bryant, DO [address] [facility] [address] [place] [address] REPLACEMENT TOTAL JOINT KNEE [70831 (CPT )] [facility] Comment on above: REPLACEMENT TOTAL CHEN INT KNEE [06749 (CPT )] Start: 12-04-2023 End: 12-04-2023 Arthrp kne condyle&platu medial&lat compartments REPLACEMENT TOTAL JOINT KNEE right knee degenerative joint disease 12/04/2023 10:15 AM EDT [facility] Start: 12-04-2023 Subsequent hospital visit by physician 12/04/2023 10:15 AM EDT Hospital Encounter [facility] [address] [place] [address] Dakota Bryant, DO [address] [facility] [address] [place] [address] [facility] Start: 11-25-2023 End: 10-17-2024 Crossmatch RBC Crossmatch RBC Blood Bank Routine Preop examination Coronary artery disease, unspecified vessel or lesion type, unspecified whether angina present, unspecified whether [place] or transplanted heart Hypertension, unspecified type History of myocardial infarction Expected: 11/25/2023, Expires: 10/17/2024 [facility] Comment on above: Expected: 11/25/2023 , Expires: 10/17/2024 Start: 11-25-2023 End: 10-17-2024 Type and screen(includes indirect naya) Type and screen(includes indirect naya) Blood Bank Routine Preop examination Coronary artery disease, unspecified vessel or lesion type, unspecified whether angina present, unspecified whether [place] or transplanted heart Hypertension, unspecified type History of myocardial infarction Expected: 11/25/2023, Expires: 10/17/2024 [facility] Comment on above: Expected: 11/25/2023 , Expires: 10/17/2024 Start: 09-08-2023 COVID-19 Vaccine ( season) COVID-19 Vaccine ( season) [facility] Start: 2011 Fall Risk Screening Fall Risk Screen ing [facility] Start: 2011 Pneumococcal Vaccine : 65+ Years (1 of 1 - PCV) Pneumococcal Vaccine: 65+ Years (1 of 1 - PCV) [facility] Start: 1996 Administration of varicella zoster vaccine Zoster (Shingles) Vaccine (1 of 2) [facility] Start: 1996 Pneumococcal Vaccine : 65+ Years (1 of 1 - PCV) Pneumococcal Vaccine: 65+ Years (1 of 1 - PCV) [facility] Start: 1965 DTaP,Tdap and Td Vaccines (1 - Tdap) DTaP,Tdap and Td Vaccines (1 - Tdap) [facility] Start: 1964 Adult BMI Follow Up Plan Adult BMI Follow Up Plan [facility] Start: 1958 Depression Screening Depression Scre ening [facility] Start: 1946 Medicare Annual Well ness Visit Medicare Annual Wellness Visit [facility] CBC panel - Blood by Automated count CBC without diff Lab Routine Lab max of 3 days, Daily, for lab use only until discontinued starting 12/04/2023, 3 [facility] Comment on above: Lab max of 3 days, D aily, for lab use only until discontinued starting 12/04/2023, 3 completed Comprehensive metabo lic 2000 panel - Serum or Plasma Comprehensive metabolic panel Lab Routine Lab max of 3 days, Daily, for lab use only until discontinued starting 12/04/2023, 3 completed [facility] Work Phone: Comment on above: Lab max of 3 days, D aily, for lab use only until discontinued starting 12/04/2023, 3 completed Magnesium [Mass/volu me] in Serum or Plasma Magnesium Lab Routine Lab max of 3 days, Daily, for lab use only until discontinued starting 12/04/2023, 3 completed [facility] Comment on above: Lab max of 3 days, D aily, for lab use only until discontinued starting 12/04/2023, 3 completed Oxygen Therapy - Maintain SpO2: 90% or greater; *BOOK COVERER Guidelines for O2: Yes; Document: \[email or web address]\epi c\EPIC_Reference\Orders\ Respiratory Care Guidelines\CPG Oxygen 2022.pdf Oxygen Therapy - Maintain SpO2: 90% or greater; *BOOK COVERER Guidelines for O2: Yes; Document: \[email or web address]\ep ic\EPIC_Reference\Order s\Respiratory Care Guidelines\CPG Oxygen 2022.pdf Respiratory Care Routine As Needed until discontinued starting 12/04/2023 [facility] Work Phone: Comment on above: As Needed until disc ontinued starting 12/04/2023 Payers Date Payer Category Payer Medicare (Managed Care) 1.2. [id number] 2022 Medicare 1959 Private Health Insurance [id number] 1946 Unknown [id number] 2.16.8 40.1.142206.3.579.2.647 1946 Unknown [id number] 2.16.8 40.1.341485.3.579.2.647 1946 Unknown [id number] 2.16.84 0.1.787652.3.579.2.593 1946 Unknown [id number] 2.16.84 0.1.693431.3.579.2.593 1946 Unknown [id number] 2.16. 840.1.898676.3.579.2.196 1946 Unknown [id number] 2.16.8 40.1.825196.3.579.2.1286 1946 Unknown [id number] 2.16.8 40.1.500947.3.579.2.128 1946 Unknown [id number] 2.16.8 40.1.689416.3.579.2.128 1946 Unknown [id number] 2.16.8 40.1.594475.3.579.2.128 1946 Unknown [id number] 2.16.8 40.1.328146.3.579.2.1285 1946 Unknown [id number] 2.16.8 40.1.810475.3.579.2.128 1946 Unknown [id number] 2.16.8 40.1.671044.3.579.2.9 1946 Unknown [id number] 2.16.8 40.1.463712.3.579.2.1258 1946 Unknown [id number] 2.16.84 0.1.216501.3.579.2.9 1946 Unknown [id number] 2.16.84 0.1.327908.3.579.2.1259 1946 Unknown [id number] 2.16.84 0.1.331156.3.579.2.1259 1946 Unknown [id number] 2.16.84 0.1.027984.3.579.2.1258 1946 Unknown [id number] 2.16.84 0.1.818012.3.579.2.1259 1946 Unknown [id number] 2.16.84 0.1.277731.3.579.2.125 1946 Unknown [id number] 2.16.84 0.1.014589.3.579.2.1259 1946 Unknown [id number] 2.16.84 0.1.627581.3.579.2.1259 1946 Unknown [id number] 2.16.84 0.1.066426.3.579.2.1259 1946 Unknown [id number] 2.16.84 0.1.362856.3.579.2.9 1946 Unknown [id number] 2.16.84 0.1.014243.3.579.2.1259 1946 Unknown [id number] 2.16.84 0.1.543737.3.579.2.1258 1946 Unknown [id number] 2.16.84 0.1.644206.3.579.2.9 1946 Unknown [id number] 2.16.84 0.1.028789.3.579.2.1258 1946 Unknown [id number] 2.16.84 0.1.398854.3.579.2.1259 1946 Unknown [id number] 2.16.84 0.1.739333.3.579.2.1258 1946 Unknown [id number] 2.16.84 0.1.315646.3.579.2.1259 1946 Unknown [id number] 2.16.84 0.1.367267.3.579.2.1258 1946 Unknown [id number] 2.16.84 0.1.058693.3.579.2.1259 1946 Unknown [id number] 2.16.84 0.1.045102.3.579.2.1258 1946 Unknown [id number] 2.16.84 0.1.172206.3.579.2.9 1946 Unknown [id number] 2.16.8 40.1.617406.3.579.2.727 1946 Unknown [id number] 2.16.8 40.1.848057.3.579.2.727 Unknown Social History Date Type Detail Facility Start: 07-09-2023 End: 11-07-2023 Tobacco smoking status NHIS Never smoked tobacco [facility] Start: 07-09-2023 End: 11-07-2023 Tobacco use and exposure Smokeless tobacco non-user [facility] Start: 12-17-2023 End: 11-25-2024 Alcoholic beverage intake Current drinker of alcohol (finding) [facility] Start: 12-17-2023 End: 11-25-2024 History of Social function [email or web address] Start: 12-17-2023 End: 11-25-2024 Tobacco use panel [facility] Start: 1945 Sex assigned at Not on file [facility] Start: 11-07-2023 Alcohol Comment occasional [facility] Has the [employer], or water [employer] threatened to shut off services in your home in past 12Mo No [facility] In the past 12 month s, has lack of transportation kept you from medical appointments or from getting medications? [facility] Equipment Procedure Code Equipment Code Equipment Origin al Text Equipment Identifier Dates Cement Bn Bio 40 gm Rpl [id number] - Sna - [id number] Start: 12-04-2023 Component Fem 8 Std Kn Rt Crcte Rtn Cmnt Persona Cocr - Sna - [id number] Start: 12-04-2023 Component Ptlr 3 5mm Persona Alply Kn Strl Lf - Sna - [id number] Start: 12-04-2023 Surface Artc 16m m Persona Mdl Cngr 8-11 Ef Kn Rt Vivacit-E - Sna - [id number] Start: 12-04-2023 Baseplate Tib 5d F Kn Rt Cmnt Stm Persona Tiv Strl - Sna - [id number] Start: 12-04-2023 Goals Date Patient Goal Desired Activity /State Personal health goal Comment on above: Formatting of this n ote might be different from the original. Evaluation of progress towards goal: awaiting PT/OT evaluation. Daughter at bedside and plans to stay with patient until Saturday. Updated goal: DC to home tomorrow with [facility] home therapy and [facility]. SABINO Jo, 12/05/2023, 4:28 PM Clinical Notes 11-07-2023 to 01-20-2025 Mely Paige, FRANK - 11/25/2024 1:00 PM Shira Paige NP - 05/27/2024 2:45 PM Ekta Bryant, DO - 02/25/2024 11:00 AM Wilfrid Sterling, PT - 02/18/2024 11:00 AM EDTPatient Instructions Note Date & Type Note Facility 01-20-2025 Note Patient Education Urology Circumcision Information Male infants are born with a fold of skin that covers the head of the penis (foreskin). This fold of skin is often removed shortly after with a surgery that is called circumcision. A circumcision may be done by a health care provider who is involved in care or by a specialist who cares for the urinary tract (urologist). Circumcisions may also be done in non-medical settings for confucianist or cultural reasons. Who should be circumcised? The decision to leave the foreskin on or to have it removed is a personal one. It is often based on confucianist, social, or cultural beliefs. Circumcision is most often done in the first few days of life, but it may also be done later in life. In general: ??? All healthy boys with a normal penis formation can be circumcised in the first few days after . ??? Boys who are born early (prematurely) or who are ill should not be circumcised until they are older and stronger. ??? Boys with certain deformities of the penis or deformities of the opening of the penis (urethra) should not be circumcised. How is circumcision done? The penis and the area around it are cleansed well. ??? An injection may be given to numb the area. A numbing cream may be applied to the area. ??? A special clamp or ring is attached to the penis and used to remove the foreskin. ??? The area is then cleansed well again. ??? Medicine and gauze are applied to it. What are the benefits of circumcision? When the foreskin is removed: ??? The head of the penis is easier to wash. This lowers the risk for odors, swelling, and infection. ??? Some men are less likely to: ? Carry the virus that causes genital warts (human papillomavirus or HPV). ? Contract human immunodeficiency virus (HIV). ? Develop cancer of the penis. ? Get urinary infections. ? Develop inflammation of the penis. What are the risks of circumcision? Circumcision is a safe procedure. However, problems may occur, including: ??? Infection. ??? Bleeding. ??? Removal of too much or too little foreskin. This affects the appearance of the penis. ??? Irritation and narrowing of the urinary opening. This is usually short term. ??? Scarring of the penis. This may affect the way the penis functions. Where to find more information ??? [place] [employer] (ACOG), Male Circumcision: acog.org Summary ??? Male infants are born with a fold of skin that covers the head of the penis. This fold of skin is often removed shortly after with a surgery that is called circumcision. ??? When the foreskin is removed, the head of the penis is easier to wash and keep clean. ??? Some men who are circumcised are less likely to carry viruses, get urinary infections, or develop cancer of the penis. ??? Circumcision is a safe procedure. However, problems may occur, including infection, bleeding, scarring, and irritation and narrowing of the opening of the penis. This information is not intended to replace advice given to you by your health care provider. Make sure you discuss any questions you have with your health care provider. Document Revised: 05/07/2022 Document Reviewed: 05/07/2022 [employer] Patient Education ? 2023 [employer]. Balanitis Balanitis is swelling and irritation of the head of the penis (glans penis). Balanitis occurs most often among males who have not had their foreskin removed (uncircumcised). In uncircumcised males, the condition may also cause inflammation of the skin around the foreskin. Balanitis sometimes causes scarring of the penis or foreskin, which can require surgery. This condition may develop because of an infection or another medical condition. Untreated balanitis can increase the risk of penile cancer. What are the causes? Common causes of this condition include: ??? Irritation and lack of airflow due to fluid (smegma) that can build up on the glans penis. ??? Poor personal hygiene, especially in uncircumcised males. Not cleaning the glans penis and foreskin well can result in a buildup of bacteria, viruses, and yeast, which can lead to infection and inflammation. Other causes include: ??? Chemical irritation from products such as soaps or shower gels, especially those that have fragrance. Chemical irritation can also be caused by condoms, personal lubricants, petroleum jelly, spermicides, fabric softeners, or laundry detergents. ??? Skin conditions, such as eczema, dermatitis, and psoriasis. ??? Allergies to medicines, such as tetracycline and sulfa drugs. What increases the risk? The following factors may make you more likely to develop this condition: ??? Being an uncircumcised male. ??? Having diabetes. ??? Having other medical conditions, including liver cirrhosis, congestive heart failure, or kidney disease. ??? Having infections, such as cand (more content not included)... [facility] 11-25-2024 History of Present illness Narrative Images from the original note were not included. HISTORY OF PRESENT ILLNESS: EST PT Sonia Stauffer is an 79 y.o. @ male. (EST PT) - S/P RT TKA 12/04/23 (~1 YEAR) - DR. BRYANT XRAY TODAY MAG 11/24/24 XRAY EPIC 05/27/24 XRAY EPIC 01/14/24 WALKING WELL UNASSISTED. OCCAS PAIN IN KNEE, MOSTLY IN AM OR AFTER SITTING FOR A WHILE. WILL GET STIFFNESS. DENIES GIVING OUT. PLEASED WITH OUTCOME OF SX SO FAR. ALLERGIES: Allergies Allergen Reactions Levofloxacin HOME MEDICATIONS: Current Outpatient Medications Medication Instructions acetaminophen (TYLENOL) 1,000 mg, Every 6 hours PRN amLODIPine (Norvasc) 2.5 MG tablet TAKE 1 TABLET BY MOUTH IN THE MORNING AND 1 TABLET AT BEDTIME aspirin 81 MG chewable tablet Chew 1 tablet every day by oral route. clopidogrel (PLAVIX) 75 mg, Every morning hydroCHLOROthiazide (HYDRODIURIL) 12.5 mg, Daily Jardiance 10 MG TAKE 1 TABLET BY MOUTH EVERY DAY FOR 30 DAYS lisinopril 40 mg, Daily losartan (COZAAR) 50 mg, Daily RT metFORMIN (Glucophage) 500 MG tablet 1 tablet, 2 times daily metoprolol tartrate (Lopressor) 25 MG tablet Every 12 hours Multiple Vitamins-Minerals (Kyle Multivitamin for Men) tablet Kyle Multi Men niacin 500 MG tablet Every 24 hours omega-3 (fish oil) 1000 MG capsule 1 capsule, Every 24 hours rosuvastatin (CRESTOR) 20 mg, Daily RT simvastatin (ZOCOR) 40 mg, Daily PHYSICAL EXAM: Right Knee Exam Tenderness The patient is experiencing no tenderness. Range of Motion Extension: 0 Flexion: 120 Tests Varus: negative Valgus: negative Other Scars: present Sensation: normal Pulse: present Swelling: none Vitals: There is no height or weight on file to calculate BMI. Tobacco Use: Low Risk (11/25/2024) Patient History Smoking Tobacco Use: Never Smokeless Tobacco Use: Never Passive Exposure: Not on file Alcohol Use: Not on file IMAGING: XR knee 1 or 2 views right Imaging Result: 11/25/2024: Standing AP and LAT of right knee [...] Stable RT total knee replacement. Mely Paige INSEAM TRIMMER-SURGICAL TECHNICIAN Procedures Orders Placed This Encounter Procedures XR knee 1 or 2 views right Reason for exam:: RT TKA ASSESSMENT: ICD-10-CM 1. Primary osteoarthritis of right knee M17.11 XR knee 1 or 2 views right 2. Status post right knee replacement Z96.651 PLAN: I reviewed xray and exam findings with patient which showed a stable RT TKA. He states he is doing well with only occasional pain and stiffness. I recommend he continue to be active and use tylenol for breakthrough pain. Follow up in 1 year for RCK and xray. Questions answered in laymen terms at the bedside. The diagnosis, home exercise plan and any ongoing restrictions/ recommendations reviewed. If unable to be reached in office, I recommend evaluation at nearest Emergency Room if any symptoms worsened or new symptoms develop for requiring urgent evaluation. documented in this encounter [facility] 05-27-2024 History of Present illness Narrative Images from the original note were not included. Chief Complaint Patient presents with Right Knee - Follow-up HISTORY OF PRESENT ILLNESS: Sonia Stauffer is an 78 y.o. @ male. (EST PT) S/P RT TKA 12/04/23 (5 MTHS 3 WKS)- [place]. XRAY TODAY EPIC 05/27/24 XRAY EPIC 01/14/24 [...] Stable RT total knee replacement. Mely Paige APRN-DANE ASSESSMENT: ICD-10-CM 1. Status post right knee [...] symptoms develop for requiring urgent evaluation. Mely PRICE documented in this encounter [facility] 05-06-2024 Note [facility] Cardiology Clinic Note Chief Complaint: Patient [...] assessed by instantaneous wave-free ratio (iFR). 4. 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 Follow up with me in the [facility] in the next 2 to 4 weeks. [...] drug-eluting (more content not included)... [facility] 02-25-2024 History of Present illness Narrative [...] Gilbert's syndrome Gout Hyperlipidemia (CMS/HCC) Hypertension (CMS/HCC) PA (myocardial infarction) (CMS/HCC) CHRISTIANO (obstructive sleep apnea) [...] Bryant/felicita Bryant D.O. documented in this encounter [facility] 02-18-2024 History of Present [...] OP 118 degrees documented in this encounter [facility] 02-13-2024 History of Present illness Narrative Physical [...] by next Saturday. documented in this encounter [facility] 02-11-2024 History of Present illness Narrative Physical [...] by next Saturday. documented in this encounter [facility] 01-30-2024 History of Present [...] improve overall gait. documented in this encounter [facility] 01-23-2024 History of Present illness Narrative Physical [...] improve overall gait. documented in this encounter [facility] 01-16-2024 History of Present illness Narrative Physical [...] taps next session. documented in this encounter [facility] 01-14-2024 History of Present illness Narrative Images [...] Gilbert's syndrome Gout Hyperlipidemia (CMS/HCC) Hypertension (CMS/HCC) PA (myocardial infarction) (CMS/HCC) CHRISTIANO (obstructive sleep apnea) [...] Bryant/felicita Bryant D.O. documented in this encounter [facility] 01-09-2024 History of Present illness Narrative Physical [...] in the R knee. Pt needing single BAIL ATTACHER when doing step ups. Still walking with the cane due to weakness in the knee. Continue to progress as able per PT POC. documented in this encounter [facility] 12-06-2023 History of Present illness Narrative Mellisa Fernando RN ER will come to patient room and attempt US Guided PIV for CT procedure. Second attempt as follows for US Guidance PIV, this nurse telephoned hide mill man Drum Sealer, FROYLAN, left message. PIV access attempted by this nurse X2, unsuccessful. Second RN attempted PIV, Unsuccessful. Patient in need for PIV for CT as ordered. Telephoned ER for US guidance PIV, ER verbalized no one is available to assist at this time, and connected this nurse to hide mill man Drum Sealer, FROYLAN, left message. Waiting for response. Orthopedic Daily [...] results found for the last 168 hours. DEE WEST APRN-CNP 12/05/23 1246 documented in this encounter [facility] 12-06-2023 Hospital course Narrative Orthopaedic Discharge Summary Patient ID: Sonia Stauffer [id number] 78 y.o. 1945 Admit date: 12/04/2023 Discharge [...] Studies: Daily hemoglobin and hematocrit Hospital Course:See [facility] inpatient notes for specifics Patient was [...] APRN-CNP 12/06/23 1225 documented in this encounter [facility] 12-06-2023 Progress note Formatting of blaise cooper note is different from the original. Physical [...] belt Weight Bearing Status: WBAT R LE Telemetry/English Composition Instructor: No Other: S/P R TKA Pain Assessment [...] Gray, PT Evaluation of progress towards goal: is [...] right knee Active Problems: Hypertension Hyperlipidemia Hyponatremia [facility] 12-06-2023 Miscellaneous Notes Physical Therapy Treatment Discharge [...] belt Weight Bearing Status: WBAT R LE Telemetry/English Composition Instructor: No Other: S/P R TKA Pain Assessment [...] Gray, PT Not Progressing 12/06/23 1124 Chelita Gray [...] Outcomes Date/Time User Outcome 12/06/23 1218 Chelita Gary PT Not Progressing 12/06/23 1124 Chelita Gray PT Progressing 12/05/23 1356 Chelita Gray PT [...] Chelita Gray, PT Progressing 12/06/23 1124 Chelita Gray PT Progressing 12/05/23 1356 Chelita Gray PT [...] None Discharge Plan: DC to home with [facility]. RN to hard fax CRF. Services Requested: Services Requested Discharge Disposition: Home with home health services Facility/Service Name: [facility] Facility/Service Fax number: [phone] Facility/Service Phone Number: [phone] Does the patient need discharge transportation arranged?: No (Daughter to take patient home.) Patient choice offered: Yes List Provided: Yes [facility] List Provided: Home Care, Fdc Facility Initial DC Assessment Completed: Yes DC Planning Complete Discharge Milestones: Yes Patient Goals: Patient/Caregiver Goals Patient/Caregiver Goals: Home with Home Care Goals: Goals [facility] with [facility] [place] [address] [facility] SNF (pt-stated) Evaluation of progress towards goal: awaiting PT/OT evaluation. Daughter at bedside and plans to stay with patient until Saturday. Updated goal: DC to home tomorrow with [facility] home therapy and [facility]. SABINO Jo, 12/05/2023, 4:28 PM Physical [...] belt Weight Bearing Status: WBAT R LE Telemetry/English Composition Instructor: No Other: S/P R TKA Pain Assessment [...] User Outcome 12/06/23 1124 Chelita Gray PT Progressing Goal [...] Gray PT Evaluation of progress towards goal: 60ft [...] Description: INTERVENTIONS: 1. Encourage patient or legal client representative to report early pain and ask [...] per policy 9. Teach patient or legal client representative interventions for comforting Outcome: Progressing Note: [...] at the bedside 7. Instruct patient/ patient client representative about use of safety devices 8. Include patient/ patient client representative in decisions related to safety Outcome: Progressing Note: Evaluation of progress towards goal: Patient will remain safe and free from injury during hospitalization. Problem: Moderate - High Risk Fall Score Description: Pablo Fall Score of =/> 25 or indicated by [facility] Rehab Assessment Goal: Patient should be free from fall Description: Interventions: 1. [place] to environment 2. Hourly rounds addressing the [...] non-skid footwear 11. Teach patient and patient client representative to maintain environment for safety and [...] (cane, walker) within reach 19. Request patient client representative bring adaptive equipment/mobility aids from home or obtain and provide as needed 20. Consult pharmacy regarding effects of med's affecting mobility, cognition, and alternatives 21. Obtain physician order for PT if risk factors associated with mobility are present 22. Obtain physician order for OT as appropriate 23. Utilize diversional activities 24. Educate patient and patient client representative how to maintain a safe environment during visitation times (notify nurse prior to leaving bedside) 25. Consider appropriateness of medical or non-nurses medical assistants phlebotomists 26. Set up voiding schedule as appropriate (every 2 hours) Outcome: Progressing Note: Evaluation of progress towards goal: Patient will remain free from falls. Problem: Pain Goal: Patient goal is pain score less than 4, able to rest, and participant in treatment plan as appropriate Description: INTERVENTIONS: 1. Encourage patient or legal client representative to report early pain and ask [...] per policy 9. Teach patient or legal client representative interventions for comforting Outcome: Progressing Note: [...] Post Discharge Therapy Recommendations: Home Physical Therapy Fitting Room Checker Support for-: Mobility Deficits, ADL Deficits 6 [...] belt Weight Bearing Status: WBAT R LE Telemetry/English Composition Instructor: Yes Oxygen Used: room air Other: S/P [...] Hyponatremia DISCHARGE PLANNING NOTE Referral sent to [address]- [place] (P# ; F# ); [place] (P# [phone] ; F# [phone]), [facility] in [place], [place] (P# ; F# ) and [facility] ([place]- P# ; F# ) ([place], [place] P# ; F#) Images from the original note were not included. DISCHARGE PLANNING NOTE Informed pt will not DC today, likely tomorrow. Spoke to pt and dtr. Yanelis at bedside regarding DC plan and discussed per PT, Chelita he does not meet snf criteria, They agree to home care and provided 3 choices: [id number] (cannot accept) [facility] (can accept but cannot use with [facility] due to no contract) [facility].(Has contract with [facility] and can accept pt) [...] Hermila with [facility] who informed that [facility] would have to be used for home care to provide the RN and aide services in order for [facility] to provide the home therapy. They have a contract with them and cannot use [id number] or [facility]. SABINO Jo, 12/05/2023, 4:22 PM Services Requested: Services Requested Discharge Disposition: Home with home health services Facility/Service Name: [facility] Facility/Service Fax number: [phone] Facility/Service Phone Number: [phone] Does the patient need discharge transportation arranged?: No (Daughter to take patient home.) Patient choice offered: Yes List Provided: Yes [facility] List Provided: Home Care, Fdc Facility Initial DC Assessment Completed: Yes DC [...] tomorrow with [facility] and [facility]. SABINO Jo, 12/05/2023, 4:28 PM Problem: Pain Goal: Patient goal is pain score less than 4, able to rest, and participant in treatment plan as appropriate Description: INTERVENTIONS: 1. Encourage patient or legal client representative to report early pain and ask [...] per policy 9. Teach patient or legal client representative interventions for comforting Outcome: Progressing Note: [...] at the bedside 7. Instruct patient/ patient client representative about use of safety devices 8. Include patient/ patient client representative in decisions related to safety Outcome: [...] hygiene technique 7. Identify and instruct patient/patient client representative in use of appropriate isolation precautions for identified infection/symptoms 8. Provide and discuss with patient/patient client representative on educational MDRO sheet 9. Encourage and monitor nutritional status daily and consult steel erector if indicated 10. Implement neutropenic guidelines as needed 11. Review exposure to history of communicable disease and recent travel history on admission 12. Encourage annual influenza vaccine 13. Encourage pneumonia vaccine Outcome: Progressing Note: Evaluation of progress towards goal: Continue to assess for s/s of infection and address accordingly Problem: Knowledge Deficit Goal: Patient/patient client representative demonstrates understanding of disease process, treatment [...] be free from fall Description: Interventions: 1. [place] to environment 2. Hourly rounds addressing the [...] non-skid footwear 11. Teach patient and patient client representative to maintain environment for safety and [...] (cane, walker) within reach 19. Request patient client representative bring adaptive equipment/mobility aids from home or obtain and provide as needed 20. Consult pharmacy regarding effects of med's affecting mobility, cognition, and alternatives 21. Obtain physician order for PT if risk factors associated with mobility are present 22. Obtain physician order for OT as appropriate 23. Utilize diversional activities 24. Educate patient and patient client representative how to maintain a safe environment during visitation times (notify nurse prior to leaving bedside) 25. Consider appropriateness of medical or non-nurses medical assistants phlebotomists 26. Set up voiding schedule as appropriate [...] supplement as ordered 13. Collaborate with clinical steel erector 14. Include patient/ patient's client representative in decisions related to nutrition Outcome: [...] clean and dry. Skin protectant as needed. [place] pads in place. Problem: Pain Goal: Patient goal is pain score less than 4, able to rest, and participant in treatment plan as appropriate Description: INTERVENTIONS: 1. Encourage patient or legal client representative to report early pain and ask [...] per policy 9. Teach patient or legal client representative interventions for comforting Outcome: Progressing Note: Evaluation of progress towards goal: pain responding to oxycodone and tylenol Images from the original note were not included. DISCHARGE PLANNING NOTE Discharge Planning Assessment Sonia Bryantcaiodavey Admit Status: Observation Meet: Yes Readmission Risk: N/A. Date of Admission: 12/04/2023 GMLOS: Observation < 48 hours Target Discharge Date: 12/06/2023 Discharge Planning Assessment completed at bedside. Equal Employment Opportunity Officer identified self and role to the patient and patient's daughter. Patient is agreeable to the assessment and discussion of a safe discharge plan. 12/04/23 1514 Discharge Disposition Discharge Disposition Home with Self Care (Home with HHC and [facility]) County Information [facility] Patient Information Primary Caregiver Self (Daughter [...] Patient choice offered: Yes List Provided: Yes [facility] List Provided: Home Care, Fdc Facility Initial DC Assessment Completed: Yes Pharmacy: [facility] in [place], [place] PCP: Transportation at Time of Discharge: [...] Recommends: Await assessment Home Health Care and [facility] Facility list was provided to patient with list creation in [facility] and filtered by insurance payor. Awaiting [...] this time. Patient Discharge Plan: Home with C and [facility]. Await PT/OT [...] at the bedside 7. Instruct patient/ patient client representative about use of safety devices 8. Include patient/ patient client representative in decisions related to safety Outcome: [...] Bryant DO Anesthesia: Anesthesiologist: Monico Ibanez DO IRRIGATION EQUIPMENT INSTALLER: Rula Maya APRN-[facility], Monitored Anesthesia Care, Spinal OR staff: Outside Parts Salesman Primary: Julissa Mcintosh RN Outside Parts Salesman Relief: Arminda Ahumada RN Scrub Person: Tiff Layne CST; ST Edvin Culp Assistant: Lakesha Rowland Estimated blood loss: 150 mL Complications: None Findings: Rech-[id number]-rsco in all 3 compartments Procedure summary: After [...] with 0 Vicryl then skin clips superficially. [place] were applied. Sterile dressings were applied. documented in this encounter [facility] 12-06-2023 Progress note Formatting of t his note is different from the original. Images from the original note were not included. DISCHARGE PLANNING NOTE Follow-up Discharge Planning Progress Note Per RN during discharge transition rounds, barriers to discharge are: None Discharge Plan: DC to home with [facility]. RN to hard fax CRF. Services Requested: Services Requested Discharge Disposition: Home with home health services Facility/Service Name: [facility] Facility/Service Fax number: [phone] Facility/Service Phone Number: [phone] Does the patient need discharge transportation arranged?: No (Daughter to take patient home.) Patient choice offered: Yes List Provided: Yes [facility] List Provided: Home Care, Fdc Facility Initial DC Assessment Completed: Yes DC Planning Complete Discharge Milestones: Yes Patient Goals: Patient/Caregiver Goals Patient/Caregiver Goals: Home with Home Care Goals: Goals home with HHC and [facility] (pt-stated) Evaluation of progress towards goal: awaiting PT/OT evaluation. Daughter at bedside and plans to stay with patient until Saturday. Updated goal: DC to home tomorrow with [facility] home therapy and [facility]. SABINO Jo, 12/05/2023, 4:28 PM [facility] 12-06-2023 Progress note Formatting of t his [...] belt Weight Bearing Status: WBAT R LE Telemetry/English Composition Instructor: No Other: S/P R TKA Pain Assessment [...] Gray PT Evaluation of progress towards goal: 60ft [...] 12/06/23 1124 Chelita Gray PT Completed 12/05/23 Milvia Gray PT Progressing Goal note from Hospital Encounter 10/16/2023 by Chelita Gray PT Evaluation of progress towards goal: SBA Principal Problem: Primary osteoarthritis of right knee Active Problems: Hypertension Hyperlipidemia Hyponatremia T [facility] 12-06-2023 Plan of care note Problem: Pain Goal: Patient goal is pain score less than 4, able to rest, and participant in treatment plan as appropriate Description: INTERVENTIONS: 1. Encourage patient or legal client representative to report early pain and ask [...] per policy 9. Teach patient or legal client representative interventions for comforting Outcome: Progressing Note: [...] at the bedside 7. Instruct patient/ patient client representative about use of safety devices 8. Include patient/ patient client representative in decisions related to safety Outcome: Progressing Note: Evaluation of progress towards goal: Patient will remain safe and free from injury during hospitalization. Problem: Moderate - High Risk Fall Score Description: [place] Fall Score of =/> 25 or indicated by [facility] Rehab Assessment Goal: Patient should be free from fall Description: Interventions: 1. [place] to environment 2. Hourly rounds addressing the [...] non-skid footwear 11. Teach patient and patient client representative to maintain environment for safety and [...] (cane, walker) within reach 19. Request patient client representative bring adaptive equipment/mobility aids from home or obtain and provide as needed 20. Consult pharmacy regarding effects of med's affecting mobility, cognition, and alternatives 21. Obtain physician order for PT if risk factors associated with mobility are present 22. Obtain physician order for OT as appropriate 23. Utilize diversional activities 24. Educate patient and patient client representative how to maintain a safe environment during visitation times (notify nurse prior to leaving bedside) 25. Consider appropriateness of medical or non-nurses medical assistants phlebotomists 26. Set up voiding schedule as appropriate (every 2 hours) Outcome: Progressing Note: Evaluation of progress towards goal: Patient will remain free from falls. [facility] 12-06-2023 Plan of care note Problem: Pain Goal: Patient goal is pain score less than 4, able to rest, and participant in treatment plan as appropriate Description: INTERVENTIONS: 1. Encourage patient or legal client representative to report early pain and ask [...] per policy 9. Teach patient or legal client representative interventions for comforting Outcome: Progressing Note: Evaluation of progress towards goal: pain improving with oxy and tylenol, continue comfort measures [facility] 12-05-2023 Progress note Formatting of t [...] Care Services with any new skin concerns. [facility] 12-05-2023 Progress note Formatting of t his note is different from the original. Physical Therapy Treatment Discharge Recommendations PT Recommendations: Home Home Recommendations: Intermittent caregiver support for: Post Discharge Therapy Recommendations: Home Physical Therapy Fitting Room Checker Support for-: Mobility Deficits, ADL Deficits 6 [...] belt Weight Bearing Status: WBAT R LE Telemetry/English Composition Instructor: Yes Oxygen Used: room air Other: S/P [...] right knee Active Problems: Hypertension Hyperlipidemia Hyponatremia [facility] 12-05-2023 Progress note Formatting of t his note might be different from the original. DISCHARGE PLANNING NOTE Referral sent to [address]- [place] (P# ; F# ); [place] (P# [phone] ; F# [phone]), [facility] in [place], [place] (P# ; F# ) and [facility] ([place]- P# ; F# ) ([place], [place] P# ; F#) [facility] 12-05-2023 Progress note Formatting of t his note is different from the original. Images from the original note were not included. DISCHARGE PLANNING NOTE Informed pt will not DC today, likely tomorrow. Spoke to pt and dtr. Yanelis at bedside regarding DC plan and discussed per PTChelita he does not meet snf criteria, They agree to home care and provided 3 choices: [id number] (cannot accept) [facility] (can accept but cannot use with [facility] due to no contract) [facility].(Has contract with [facility] and can accept pt) [...] Hermila with [facility] who informed that [facility] would have to be used for home care to provide the RN and aide services in order for [facility] to provide the home therapy. They have a contract with them and cannot use [id number] or [facility]. SABINO Jo, 12/05/2023, 4:22 PM Services Requested: Services Requested Discharge Disposition: Home with home health services Facility/Service Name: [facility] Facility/Service Fax number: [phone] Facility/Service Phone Number: [phone] Does the patient need discharge transportation arranged?: No (Daughter to take patient home.) Patient choice offered: Yes List Provided: Yes CarePort List Provided: Home Care, Fdc Facility Initial DC Assessment Completed: Yes DC [...] tomorrow with [facility] and [facility]. SABINO Jo, 12/05/2023, 4:28 PM [facility] 12-05-2023 Consult note Associated Order (s): IP CONSULT TO HOSPITALIST [facility] Hospital Medicine Consultation Patient: Sonia [...] be hyponatremic. Occasional PVCs were noted on quality assurance monitor body and hospitalist group were placed on for [...] disease, Gilbert's syndrome, Hyperlipidemia, Hypertension, Myocardial infarction ([facility]) (05/25/2008), and Sleep apnea. Past Surgical History: [...] type, unspecified whether angina present, unspecified whether white [place] or transplanted heart; Hypertension, unspecified type; History [...] Replace electrolytes per protocol. Occasional PVCs: Continue quality assurance monitor body while admitted. Leukocytosis: Chest x-ray and urinalysis ordered to rule out infectious process. Antibiotics given in OR. Continue to monitor. Chart and old records reviewed. DVT prophylaxis: EPC's and aspirin 325 mg daily. GI prophylaxis. PT/OT to evaluate and treat. DC planning: We will follow while inpatient. Recommend repeating sodium later this evening and tomorrow a.m. prior to discharge. Dg Ge, LUI-SURGICAL TECHNICIAN, 12/05/2023 8:39 AM [facility] Internal Medicine 7AM-7PM (all facilities): EpicConniet or page through Springbot. 7PM-7AM ([facility], [facility] Psychiatry and Inpatient Rehab): EpicConniet or page, [phone]. 7PM-7AM ([place], [place], [place], [facility] and [facility] Rehab): EpicChat or page through Vocera. This note is dictated with the use of M*Modal. Please note that this dictation was completed with computer voice recognition software. Quite often unanticipated grammatical, syntax, homophones, and other interpretive errors are inadvertently transcribed by the computer software. Please disregard these errors. Please excuse any errors that have escaped final proofreading. Dg Ge, [facility] 12/05/23 1042 Physician Attestation I, Misa Sanchez [...] I agree with the plan as noted. [facility] Work Phone: 12-05-2023 Consult note Associated Order (s): IP CONSULT TO HOSPITALIST [facility] INTERNAL MEDICINE Hospital Medicine Consultation Patient: Sonia [...] be hyponatremic. Occasional PVCs were noted on quality assurance monitor body and hospitalist group were placed on for [...] disease, Gilbert's syndrome, Hyperlipidemia, Hypertension, Myocardial infarction ([facility]) (05/25/2008), and Sleep apnea. Past Surgical History: [...] type, unspecified whether angina present, unspecified whether white mountain or transplanted heart; Hypertension, unspecified type; History [...] Replace electrolytes per protocol. Occasional PVCs: Continue quality assurance monitor body while admitted. Leukocytosis: Chest x-ray and urinalysis [...] to discharge. DEE Browning, 12/05/2023 8:39 AM [facility] Internal Medicine 7AM-7PM (all facilities): EpicChat or page through Springbot. 7PM-7AM ([facility], [facility] Psychiatry and Inpatient Rehab): EpicChat or page, [phone]. 7PM-7AM ([place], [place], [place], [place] and [facility] Rehab): EpicChat or page through Springbot. This note is dictated with the use [...] plan as noted. documented in this encounter [facility] 12-05-2023 Plan of care note Problem: Pain Goal: Patient goal is pain score less than 4, able to rest, and participant in treatment plan as appropriate Description: INTERVENTIONS: 1. Encourage patient or legal client representative to report early pain and ask [...] per policy 9. Teach patient or legal client representative interventions for comforting Outcome: Progressing Note: [...] at the bedside 7. Instruct patient/ patient client representative about use of safety devices 8. Include patient/ patient client representative in decisions related to safety Outcome: [...] hygiene technique 7. Identify and instruct patient/patient client representative in use of appropriate isolation precautions for identified infection/symptoms 8. Provide and discuss with patient/patient client representative on educational MDRO sheet 9. Encourage and monitor nutritional status daily and consult steel erector if indicated 10. Implement neutropenic guidelines as needed 11. Review exposure to history of communicable disease and recent travel history on admission 12. Encourage annual influenza vaccine 13. Encourage pneumonia vaccine Outcome: Progressing Note: Evaluation of progress towards goal: Continue to assess for s/s of infection and address accordingly Problem: Knowledge Deficit Goal: Patient/patient client representative demonstrates understanding of disease process, treatment [...] Score of =/> 25 or indicated by [facility] Assessment Goal: Patient should be free from fall Description: Interventions: 1. [place] to environment 2. Hourly rounds addressing the [...] non-skid footwear 11. Teach patient and patient client representative to maintain environment for safety and [...] (cane, walker) within reach 19. Request patient client representative bring adaptive equipment/mobility aids from home or obtain and provide as needed 20. Consult pharmacy regarding effects of med's affecting mobility, cognition, and alternatives 21. Obtain physician order for PT if risk factors associated with mobility are present 22. Obtain physician order for OT as appropriate 23. Utilize diversional activities 24. Educate patient and patient client representative how to maintain a safe environment during visitation times (notify nurse prior to leaving bedside) 25. Consider appropriateness of medical or non-nurses medical assistants phlebotomists 26. Set up voiding schedule as appropriate [...] supplement as ordered 13. Collaborate with clinical steel erector 14. Include patient/ patient's client representative in decisions related to nutrition Outcome: [...] clean and dry. Skin protectant as needed. [place] pads in place. [facility] 12-05-2023 Plan of care note Problem: Pain Goal: Patient goal is pain score less than 4, able to rest, and participant in treatment plan as appropriate Description: INTERVENTIONS: 1. Encourage patient or legal client representative to report early pain and ask [...] per policy 9. Teach patient or legal client representative interventions for comforting Outcome: Progressing Note: Evaluation of progress towards goal: pain responding to oxycodone and tylenol [facility] 12-04-2023 Progress note Formatting of t his note is different from the original. Images from the original note were not included. DISCHARGE PLANNING NOTE Discharge Planning Assessment Sonia Stauffer Admit Status: Observation Meet: Yes Readmission Risk: N/A. Date of Admission: 12/04/2023 GMLOS: Observation < 48 hours Target Discharge Date: 12/06/2023 Discharge Planning Assessment completed at bedside. Equal Employment Opportunity Officer identified self and role to the patient and patient's daughter. Patient is agreeable to the assessment and discussion of a safe discharge plan. 12/04/23 1514 Discharge Disposition Discharge Disposition Home with Self Care (Home with HHC and [facility]) County Information [facility] Patient Information Primary Caregiver Self (Daughter [...] Provided: Yes CarePort List Provided: Home Care, Fdc Facility Initial DC Assessment Completed: Yes Pharmacy: [facility] in [place], [place] PCP: Transportation at Time of Discharge: [...] Recommends: Await assessment Home Health Care and [facility] Facility list was provided to patient with list creation in [facility] and filtered by insurance payor. Awaiting [...] this time. Patient Discharge Plan: [facility]. Await PT/OT assessment. - Edwina White RN 12/04/23 3:26 PM [facility] 12-04-2023 Plan of care note Problem: Safety [...] at the bedside 7. Instruct patient/ patient client representative about use of safety devices 8. Include patient/ patient client representative in decisions related to safety Outcome: [...] goal: Continue to assess for when appropriate. [facility] 12-04-2023 Procedure note Summary: Right total knee Sonia Stauffer Date of : 1945 Date of Surgery: 12/04/2023 Preoperative diagnosis: Primary osteoarthritis right knee Postoperative diagnosis: Same Procedure: Right total knee arthroplasty Surgeon: Dakota Bryant DO Anesthesia: Anesthesiologist: Monico Ibanez DO IRRIGATION EQUIPMENT INSTALLER: Rula Maya APRN-[facility], Monitored Anesthesia Care, Spinal OR staff: Outside Parts Salesman Primary: Julissa Mcintosh RN Outside Parts Salesman Relief: Arminda Ahumada RN Scrub Person: Tiff Layne CST; ST Suni Space Buyer: Lakesha Rowland Estimated blood loss: 150 mL Complications: None Findings: [id number] in all 3 compartments Procedure summary: After [...] Fei were applied. Sterile dressings were applied. [facility] 12-04-2023 Attending History and physical note HISTORY AND PHYSICAL INTERVAL NOTE: Sonia Stauffer 1945 [id number] H&P reviewed. The patient was examined and there are no changes to the H&P. Dakota Bryant DO Source Note - Dakota Bryant DO - 11/27/2023 2:08 PM EDT [facility] 12-04-2023 History and physical note HISTORY AND PHYSICAL INTERVAL NOTE: Sonia Stauffer 1945 [id number] H&P reviewed. The patient was examined and there are no changes to the H&P. Dakota Bryant DO Source Note - Dakota Bryant DO - 11/27/2023 2:08 PM EDT documented in this encounter [facility] 11-07-2023 Instructions Kassandra Benton RN - 11/07/2023 [...] in at the main lobby of the [facility]- registration desk is straight ahead as soon as you walk in. Tell them you are here for surgery. 2. If you have a Living Will/Durable Power of Insurance Sales Assistant for Health Care that is not on [...] after you have bathed. 5. NO nail swazi/acrylic on at least one finger. If you are having a hand, wrist or foot surgery then all nail swazi and artificial/acrylic nails must be removed from [...] please call the Preadmission Testing office at [phone], Mon.-Fri. 7 a.m.-3 p.m. Leave a voicemail [...] with your doctor. documented in this encounter [facility] Evaluation note Diagnosis Postoperative pain of right [...] right knee replacement documented in this encounter [facility] HealthcareEvaluation note* Diagnosis Primary osteoarthritis of right knee Status post right knee replacement documented in this encounter [facility] HealthcareEvaluation note* Diagnosis Postoperative pain of right knee- Primary Presence of artificial knee joint, right documented in this encounter [facility] HealthcareEvaluation note* Diagnosis Status post right knee replacement Primary osteoarthritis of right knee documented in this encounter [facility] HealthcareEvaluation note* Diagnosis Preop examination- Primary Unspecified pre-operative examination Coronary artery disease, unspecified vessel or lesion type, unspecified whether angina present, unspecified whether white [place] or transplanted heart Hypertension, unspecified type History of myocardial infarction Preop examination Unspecified pre-operative examination Coronary artery disease, unspecified vessel or lesion type, unspecified whether angina present, unspecified whether white [place] or transplanted heart Hypertension, unspecified type History of myocardial infarction documented [facility] Diagnosis Primary osteoarthritis of right knee- Primary Status post total knee replacement, right Hypertension Unspecified essential hypertension Hyperlipidemia Other and unspecified hyperlipidemia Hyponatremia Hyposmolality and/or hyponatremia documented [facility]* Diagnosis Primary osteoarthritis of right knee Status post right knee replacement documented in this encounter [facility] HealthcareHospital Discharge instructionsNot on filedocumented in [facility] Purpose Family History No Family [...] instruction-no alcohol while taking pain medications Mely Paige, [employer]SEAM TRIMMER-SURGICAL TECHNICIAN [address] [place] [address] Referral ID Status Reason Start Date Expiration Date V isits Requested Visits Authorized [id number] Pending Review 12/06/2023 12/05/2024 1 1 Specialty Diagnoses / Procedures Referred By Adal welsh Referred To Contact Diagnoses Status post total knee replacement, right Procedures Discharge instruction after anesthesia/sedation Mely Paige, [employer]SEAM TRIMMER-SURGICAL TECHNICIAN [address] [place] [address] Referral ID Status Reason Start Date Expiration Date V isits Requested Visits Authorized [id number] Pending Review 12/06/2023 12/05/2024 1 1 Specialty Diagnoses / Procedures Referred By Contac t Referred To Contact Procedures Follow-up with MD 7-14 days after surgery Mely Paige, INSEAM TRIMMER-SURGICAL TECHNICIAN [address] [place] [address] Referral ID Status Reason Start Date Expiration Date V isits Requested Visits Authorized [id number] Pending Review 12/06/2023 12/05/2024 1 1 Specialty Diagnoses / Procedures Referred By Contac t Referred To Contact Procedures Dressing instructions- keep incision clean and dry Mely Paige, INSEAM TRIMMER-SURGICAL TECHNICIAN [address] [place] [address] Referral ID Status Reason Start Date Expiration Date V isits Requested Visits Authorized [id number] Pending Review 12/06/2023 12/05/2024 1 1 Specialty Diagnoses / Procedures Referred By Contac t Referred To Contact Procedures Hygiene- may shower Mely Paige, INSEAM TRIMMER-SURGICAL TECHNICIAN [address] [place] [address] Referral ID Status Reason Start Date Expiration Date V isits Requested Visits Authorized [id number] Pending Review 12/06/2023 12/05/2024 1 1 Specialty Diagnoses / Procedures Referred By Contac t Referred To Contact Diagnoses Status post total knee replacement, right Procedures Apply ice to affected area Mely Piage, INSEAM TRIMMER-SURGICAL TECHNICIAN [address] [place] [address] Referral ID Status Reason Start Date Expiration Date V isits Requested Visits Authorized [id number] Pending Review 12/06/2023 12/05/2024 1 1 Additional Source Comments (unrecognized sect ion and content) No Status Records FoundNo Status Records FoundNo Status Records FoundNo Status Records FoundNo Status Records FoundNo Status Records FoundNo Status Records Found INFORMATION SOURCE (unrecogn ized section and content) DATE CREATED AUTHOR 04/28/2018 [facility] DATE CREATED AUTHOR AUTHOR'S ORGANIZ ATION 07/09/2022 [facility] DATE CREATED AUTHOR AUTHOR'S ORGANIZ ATION 05/03/2023 [facility] DATE CREATED AUTHOR AUTHOR'S ORGANIZ ATION 12/07/2023 [facility] DATE CREATED AUTHOR AUTHOR'S ORGANIZ ATION 11/29/2024 [facility] dical Specialists [facility] DATE CREATED AUTHOR AUTHOR'S ORGANIZ ATION 01/22/2025 [facility] DATE CREATED AUTHOR AUTHOR'S ORGANIZ ATION 01/22/2025 [facility] Care Teams (unrecognized sec tion and content) Receiver Stocker Relationship Specialty Start Date End Date Romel Franco MD [address] [place] [address] PCP - General Family Medicine 03/18/23 Receiver Stocker Relationship Specialty Start Date End Date Romel Franco MD [address] [place] [address] PCP - General Family Medicine 03/18/23 Receiver Stocker Relationship Specialty Start Date End Date Romel Franco MD [address] [place] [address] PCP - General Family Medicine 03/18/23 Receiver Stocker Relationship Specialty Start Date End Date Romel Franco MD [address] [place] [address] PCP - General Family Medicine 03/18/23 Receiver Stocker Relationship Specialty Start Date End Date Romel Franco MD [address] [place] [address] PCP - General Family Medicine 03/18/23 Receiver Stocker Relationship Specialty Start Date End Date Romel Franco MD [address] [place] [facility] [place] [address] PCP - General Family Medicine 03/18/23 Receiver Stocker Relationship Specialty Start Date End Date Romel Franco MD [address] [place] [facility] [place] [address] PCP - General Family Medicine 03/18/23 Receiver Stocker Relationship Specialty Start Date End Date Romel Franco MD [address] [facility] [place] [address] PCP - General Family Medicine 03/18/23 Receiver Stocker Relationship Specialty Start Date End Date Romel Franco MD [address] [place] [facility] [place] [address] PCP - General Family Medicine 03/18/23 Receiver Stocker Relationship Specialty Start Date End Date Romel Franco MD [address] [place] [facility] [place] [address] PCP - General Family Medicine 03/18/23 Receiver Stocker Relationship Specialty Start Date End Date Romel Franco MD [address] [place] [facility] [place] [address] PCP - General Family Medicine 03/18/23 Receiver Stocker Relationship Specialty Start Date End Date Romel Franco MD [address] [place] [facility] [place] [address] PCP - General Family Medicine 03/18/23 Receiver Stocker Relationship Specialty Start Date End Date Romel Franco MD [address] [place] [address] PCP - General Family Medicine 03/18/23 Receiver Stocker Relationship Specialty Start Date End Date Romel Franco MD [address] [place] [address] PCP - General Family Medicine 03/18/23 Receiver Stocker Relationship Specialty Start Date End Date Romel Franco MD [address] [place] [facility] [place] [address] PCP - General Family Medicine 03/18/23 Receiver Stocker Relationship Specialty Start Date End Date Romel Franco MD PCP - General Family Medicine 03/18/23 Receiver Stocker Relationship Specialty Start Date End Date Romel Franco MD PCP - General Family Medicine 03/18/23 Reason for Visit (unrecogniz ed section and content) Specialty Diagnoses / Procedures Referred By Adal welsh Referred To Contact Physical Therapy Diagnoses Presence of right artificial knee joint Procedures [facility] PHYSICAL THERAPY EVALUATION LOW COMPLEX 20 MINS Dakota Bryant DO [address] [facility] [address] [place] [address] Jona Sterling, PT Referral ID Status Reason Start Date Expiration Date Visits Requested Visits Authorized [id number] Authorized Consult and Treat 01/21/2024 03/03/2024 12 12 Reason Comments Follow-up Specialty Diagnoses / Procedures Referred By Adal t Referred To Contact Physical Therapy Diagnoses Presence of artificial knee joint, right Procedures [place] OFFICE/OUTPATIENT NEW HIGH MDM 60 MINUTES Dakota Bryant DO [address] [facility] [address] [place] [address] Jona Sterling, PT Referral ID Status Reason Start Date Expiration Date Visits Requested Visits Authorized [id number] Authorized Specialty Services Required 12/04/2023 06/01/2024 99 99 Specialty Diagnoses / Procedures Referred By Adal welsh Referred To Contact Diagnoses right knee degenerative joint disease Procedures NH TOTAL KNEE ARTHROPLASTY REPLACEMENT TOTAL JOINT KNEE Dakota Bryant DO [address] [place] [address] Referral ID Status Reason Start Date Expiration Date Visits Re quested Visits Authorized [id number] 1 1 Scheduled Active and Recently Administ ered Medications (unrecognized section and content) Medication Order 12/04/2023 12/05/2023 12/06/2023 acetaminophen (TYLENOL EXTRA STRENGTH) tablet 1,000 mg 1,000 mg, oral, Every 6 hours scheduled, First dose on Sat12/04/23 at 1800, Start 6 hours after the pre-op dose. 1702 (Given - Provider: Reina June RN)2327 (Given - Provider: Vidhi Sanchez RN) 0614 (Given - Provider: Vidhi Sanchez RN)1311 (Given - Provider: Rivas Bell RN)1728 (Given - Provider: Rivas Bell RN) 0000 (Given - Provider: Vidhi Sanchez, [facility])0600 (Not Given - Provider: Vidhi Sanchez RN - Reason: Contraindicated - Comment: dose would exceed 4000 mg in 24 hours)1317 (Given - Provider: Beverley Otero, RN)1800 (Due) amLODIPine (NORVASC) tablet 5 mg 5 mg, oral, Daily, First dose on Sat12/05/23 at 0900, Look-alike/sound-alike medication - verify indication for use. Avoid grapefruit juice. 0850 (Given - Provider: Rivas Bell RN) 0828 (Given - Provider: Beverley Otero, [facility]) aspirin EC tablet 325 mg 325 mg, oral, Daily, First dose on Sat12/05/23 at 0900, Do not crush or chew. 0850 (Given - Provider: Rivas Bell RN) 0828 (Given - Provider: Beverley Otero, [facility]) ceFAZolin (ANCEF) IVPB 1000 mg/50 mL in iso-osmotic dextrose (20 mg/mL premix) (COMPLETED)(Linked Group 1) 1,000 mg, intravenous, at 100 mL/hr, Administer over 30 Minutes, Once, On Sat12/04/23 at 0900, For 1 dose, Pre-op, Total dose of 3000mg for weight >120kg Look-alike/sound-alike medication - verify indication for use., Indication: Surgical prophylaxis 1105 (Given - Provider: VLAD Hollins) ceFAZolin (ANCEF) IVPB 2000 mg/50 mL in [...] verify indication for use., Indication: Surgical prophylaxis 2016 (New Bag - Provider: Vidhi Sanchez RN)2046 (Stop Bag - Provider: Vidhi Sanchez RN) 0355 (New Bag - Provider: Vidhi Sanchez RN)0425 (Stop Bag - Provider: Vidhi Sanchez RN) ceFAZolin (ANCEF) IVPB 2000 mg/50 mL in iso-osmotic dextrose (40 mg/mL premix) (COMPLETED)(Linked Group 1) 2,000 mg, intravenous, at 100 mL/hr, Administer over 30 Minutes, Once, On Sat12/04/23 at 0900, For 1 dose, Pre-op, Total dose 3000mg for weight >120kg. Look-alike/sound-alike medication - verify indication for use., Indication: Surgical prophylaxis 1052 (Given - Provider: VLAD Hollins) celecoxib (CeleBREX) capsule 200 mg 200 mg, [...] for use. 2137 (Given - Provider: Vidhi Sanchez, RN) 0850 (Given - Provider: Rivas Bell RN)2054 (Given - Provider: Vidhi Sanchez RN) 0829 (Given - Provider: Beverley Otero, [facility])2100 (Due) celecoxib (CeleBREX) capsule 200 mg (COMPLETED) 200 mg, oral, Once, On Sat12/04/23 at 0900, For 1 dose, Pre-op, Look-alike/sound-alike medication - verify indication for use. 15 (Given - Provider: Pamela Hu RN) hydroCHLOROthiazide [...] 0828 (Given - Provider: Beverley Otero RN) metFORMIN (GLUCOPHAGE) tablet 500 mg 500 mg, [...] Bell RN) 0829 (Given - Provider: Beverley Otero RN)1700 (Due) metoprolol tartrate (LOPRESSOR) tablet 25 mg 25 mg, oral, 2 times daily, First dose on Sat12/04/23 at 2100, Look-alike/sound-alike medication - verify indication for use. 2011 (Given - Provider: Vidhi Sanchez RN) 0850 (Given - Provider: Rivas Bell RN)2055 (Given - Provider: Vidhi Sanchez RN) 08 (Given - Provider: Beverley Otero RN)2100 (Due) midazolam (VERSED) injection 2 mg (COMPLETED) 2 mg, intravenous, Once, On Sat12/04/23 at 0900, For 1 dose, Pre-op, Indication: Other, Indication: pre procedure block 0930 (Given - Provider: Pamela Hu RN) rosuvastatin (CRESTOR) tablet 20 mg 20 mg, oral, Nightly, First dose on Kati 12/05/23 at 2200, Look-alike/sound-alike medication - verify indication for use. 2099 (Given - Provider: Vidhi Sanchez RN) 0 (Due) tranexamic acid (LYSTEDA) tablet 1,950 mg [...] June RN)1759 (Paused - Provider: Vidhi Sanchez RN)180 (Restarted - Provider: Vidhi Sanchez, MERCY)2015 (Paused - Provider: Vidhi Sanchez, MERCY)2045 (Restarted - Provider: Vidhi Sanchez RN)2119 (Paused - Provider: Vidhi Sanchez RN)2122 (Restarted - Provider: Vidhi Sanchez, RN)2342 (Stop Bag - Provider: Vidhi Sanchez [...] Provider: Carmela Loera, RT - Comment: lot [id number] 08/17/26) magnesium sulfate IVPB 2000 mg/50 mL [...] (New Bag - Provider: Vidhi Sanchez RN) 011 (Stop Bag - Provider: Vidhi Sanchez RN)011 [...] (See Alternative - Provider: Vidhi Sanchez RN) 356 (See Alternative - Provider: Vidhi Sanchez RN)0724 (Given - Provider: Reina June RN)1311 (See Alternative - Provider: Rivas Bell RN)142 (See Alternative - Provider: Rivas Bell RN)1728 (Given - Provider: Rivas Bell RN)205 (Given - Provider: Vidhi Sanchez RN) 0131 (See Alternative - Provider: Vidhi Sanchez RN) [...] June RN)1311 (Given - Provider: Rivas Bell RN)1427 (Given - Provider: Rivas Bell RN)1728 (See Alternative - Provider: Rivas Bell RN)2055 (See Alternative - Provider: Vidhi Sanchez RN) 0131 (Given - Provider: Vidhi Sanchez RN) potassium [...] For 1 dose 1419 (Given - Provider: RT Joan) Linked Groups Order Group 1: ceFAZolin (ANCEF) [...] BE BASED ON THE PRIMARY CLINICAL RECORDS. [employer] [facility]. provides no warranty or guarantee of the accuracy or completeness of information in this document.
--- NOTE | 2025-01-26 14:26 | PM.PRESUREVA ---
History of Present Illness History of Present Illness Chief complaint: phimosis Narrative: Patient presents for presurgical testing. Please see HPI from Dr. Reza dated January 20, 2025. Review of Systems ROS Narrative Please see ROS from Dr. Reza dated January 20, 2025. [facility] Medical History (Updated 01/26/25 @ 14:13 by Elsie Melchor NP) Back pain ?M54.9 - Dorsalgia, unspecified (ICD-10) CHRISTIANO treated with BiPAP ?G47.33 - Obstructive sleep apnea (adult) (pediatric) (ICD-10) GERD (gastroesophageal reflux disease) ?K21.9 - Gastro-esophageal reflux disease without esophagitis (ICD-10) Prediabetes ?R73.03 - Prediabetes (ICD-10) Coronary atherosclerosis ?I25.10 - Atherosclerotic heart disease of [place] coronary artery without angina pectoris (ICD-10) Myocardial infarction ?I21.9 - Acute myocardial infarction, unspecified (ICD-10) Cardiac arrhythmia ?I49.9 - Cardiac arrhythmia, unspecified (ICD-10) Balance problem ?R26.89 - Other abnormalities of gait and mobility (ICD-10) Dyspnea on exertion ?R06.09 - Other forms of dyspnea (ICD-10) Hemorrhoid ?K64.9 - Unspecified hemorrhoids (ICD-10) Arthritis ?M19.90 - Unspecified osteoarthritis, unspecified site (ICD-10) CHRISTIANO (obstructive sleep apnea) ?G47.33 - Obstructive sleep apnea (adult) (pediatric) (ICD-10) Hyperlipidemia ?E78.5 - Hyperlipidemia, unspecified (ICD-10) Elevated serum cholesterol ?E78.00 - Pure hypercholesterolemia, unspecified (ICD-10) Gout ?M10.9 - Gout, unspecified (ICD-10) 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) Depression ?F32.A - Depression, unspecified (ICD-10) CAD (coronary artery disease) ?I25.10 - Atherosclerotic heart disease of [place] coronary artery without angina pectoris (ICD-10) Hypertension ?I10 - Essential (primary) hypertension (ICD-10) Anticoagulated ?Z79.01 - longterm (current) use of anticoagulants (ICD-10) Balanitis ?N48.1 - Balanitis (ICD-10) Phimosis ?N47.1 - Phimosis (ICD-10) Surgical History (Updated 01/26/25 @ 13:47 by Elsie Melchor NP) History of cardiac catheterization ?Z98.890 - Other specified postprocedural states (ICD-10) Hx of tonsillectomy ?Z90.89 - Acquired absence of other organs (ICD-10) H/O hemorrhoidectomy ?Z98.890 - Other specified postprocedural states (ICD-10) History of appendectomy ?Z90.49 - Acquired absence of other specified parts of digestive tract (ICD-10) History of total knee arthroplasty ?Z96.659 - Presence of unspecified artificial knee joint (ICD-10) S/P arterial stent ?Z95.9 - Presence of cardiac and vascular implant and graft, unspecified (ICD-10) History of cholecystectomy ?Z90.49 - Acquired absence of other specified parts of digestive tract (ICD-10) Family History (Updated 01/26/25 @ 14:13 by Elsie Melchor NP) Other Family history of cancer Family history of diabetes mellitus Family history of hypertension Family history of myocardial infarction Heart failure Social History (Updated 01/26/25 @ 14:04 by Elsie Melchor NP) Within the past year, how often did you have a drink containing alcohol: 2-3 times a week Smoking status: Never smoker Non-prescribed substance use: denies use Highest level of school completed/degree received: Master's degree Meds Home Medications and Allergies Home Medications ?Medication ?Instructions ?Recorded ?Confirmed ?Type amlodipine 5 mg tablet 5 mg PO BID 04/30/23 01/26/25 History aspirin 81 mg tablet,delayed 81 mg PO DAILY 04/30/23 01/26/25 History release (Adult Low Dose Aspirin) clopidogrel 75 mg tablet (Plavix) 75 mg PO DAILY 04/30/23 01/26/25 History hydrochlorothiazide 12.5 mg tablet 12.5 mg PO DAILY 04/30/23 01/26/25 History metformin 500 mg tablet 500 mg PO BID 04/30/23 01/26/25 History metoprolol succinate 25 mg 25 mg PO BID 04/30/23 01/26/25 History tablet,extended release 24 hr multivitamin 1 tab PO DAILY 04/30/23 01/26/25 History niacin 50 mg tablet 50 mg PO DAILY 04/30/23 01/26/25 History omega-3 fatty acids 500 mg capsule 1,500 mg PO DAILY 04/30/23 01/26/25 History dapagliflozin propanediol 5 mg 5 mg PO DAILY 01/26/25 01/26/25 History tablet (Farxiga) losartan 50 mg tablet 50 mg PO DAILY 01/26/25 01/26/25 History rosuvastatin 20 mg tablet 20 mg PO DAILY 01/26/25 01/26/25 History Allergies Allergy/AdvReac Type Severity Reaction Status Date / Time levofloxacin Allergy Unknown Chills Verified 01/26/25 14:01 Exam Narrative Exam Narrative: Constitutional: Awake, alert, comfortable, well-appearing, nontoxic, interactive, vital signs as charted Head: Normocephalic, atraumatic Neck: Supple, normal appearance, normal range of motion, no meningeal signs, no lymphadenopathy Respiratory: No respiratory distress, breath sounds clear Cardiovascular: Regular rate and rhythm, strong and regular heart tones Abdomen: Nontender, normal bowel sounds, soft, no CVA tenderness Musculoskeletal: Normal gait, no swelling or edema Skin: No rashes or induration, no lesions, only visible skin inspected Neuro: No neurological deficits, normal sensation Psychiatric: Oriented ?3, normal affect Assessment and Plan Assessment and Plan (1) Phimosis: (2) Balanitis: Plan Dorsal slit versus circumcision scheduled with Dr. Reza February 04, 2025.
--- NOTE | 2025-01-26 14:28 | XR_ITS ---
[address] [address] Patient Name: SONIA PLASENCIA MRN: [id number] date: 1945 Sex: M Assigned Patient Location: [facility] Current Patient Location: [facility] Accession/Order Number: [id number] Exam Date: 01/26/2025 14:30 Report Date: 01/26/2025 15:02 At the request of: MARQUITA FIELD MD Procedure: XR chest 2V Chest 2 views CLINICAL HISTORY: E Cigarette Use COMPARISON: Chest 08/03/2024 FINDINGS: Heart normal in size. Lungs are clear. No free air. XR/XR chest 2V IMPRESSION: NO ACUTE CARDIOPULMONARY ABNORMALITY. Impression dictated by: Migue Martinez Jr., D.ORachid 01/26/2025 3:02 PM Dictation Location: [place] [address] Electronically authenticated by: [id number] Y Date: 01/26/2025 15:02
[2025-01-26 14:41] LABS: Hematocrit 44.3 % (42.0-54.0); Hemoglobin 15.7 g/dL (14.0-18.0); Immature Granulocytes Abs Auto 0.04 10^3/uL (0.00-0.03); Immature Granulocytes Pct Auto 0.7 % (0.0-0.5); Lymphocytes Absolute Auto 1.3 10^3/uL (1.2-3.8); Mean Corpuscular HGB Conc 35.4 g/dL (29.9-35.2); Mean Corpuscular Hemoglobin 31.3 pg (25.9-34.0); Mean Corpuscular Volume 88.4 fL (80.0-94.0); Platelet Count 231 10^3/uL (150-450); Red Blood Count 5.01 10^6/uL (4.70-6.10); White Blood Count 5.5 10^3/uL (4.0-11.0)
[2025-01-26 14:42] LABS: Anion Gap 11.7; Blood Urea Nitrogen 13.0 mg/dL (7.0-18.0); Calcium 8.4 mg/dL (8.5-10.1); Carbon Dioxide 30.5 mmol/L (21.0-32.0); Chloride 103 mmol/L (98-107); Estimated GFR (African America >60 (>=60 mL/min/1.73m^2); Estimated GFR (Non-African Ame >60 (>=60 mL/min/1.73m^2); Glucose 137 mg/dL (74-106); Potassium 3.2 mmol/L (3.5-5.1); Sodium 142 mmol/L (136-145)
[2025-01-26 14:52] LABS: INR 1.04; Partial Thromboplastin Time 26.4 sec (22.3-36.2); Prothrombin Time 11.0 sec (9.0-11.6)
== END 2025-01-26 13:42 | disposition home or self-care (01) ==
LOC: PST 13:43
PROVIDERS: PCP Family Medicine; Visit Provider Urology
DX: Z01.810 Encounter for preprocedural cardiovascular examination (principal); Z01.812 Encounter for preprocedural laboratory examination; Z01.818 Encounter for other preprocedural examination; N47.1 Phimosis; N48.1 Balanitis; M19.09 Primary osteoarthritis, other specified site; M10.9 Gout, unspecified; E80.4 Gilbert syndrome
CPT/HCPCS: 71046; 80048; 85025; 85610; 85730; 93005; G0463

== ENCOUNTER 2025-02-04 08:47 | Day surgery (SDC) | payer MEDICARE, SELFPAY ==
[2025-01-26 14:23] VITALS: BP 150/97; PULSE 65; TEMP 36.4; O2SAT 97; BMI 42.6
[2025-02-04] VITALS (14 sets, daily range): BP systolic 124–172; BP diastolic 54–94; PULSE 61–82; TEMP 36.2–36.3; O2SAT 91–98; BMI 42.6
--- OUTSIDE RECORDS SUMMARY | 2025-02-04 08:55 | XMS_ITS | CCD ---
Author Organization [facility] Care Team Providers Care School Admissions Representative Name Role Phone PHYSICIAN, DEFAULT Unavailable Unavailable PHYSICIAN, DEFAULT Unavailable Unavailable HOY, ROMEL Unavailable Unavailable [place], EHAB A Unavailable Unavailable [place], EHAB A Unavailable Unavailable HOY, ROMEL Unavailable Unavailable HOY, ROMEL Unavailable Unavailable IA Unavailable Unavailable [place], EHAB A Unavailable Unavailable JOAN ., DR URENA Primary Care Unavailable WENDY WHITMAN Admitting Unavailable WENDY WHITMAN Attending Unavailable CARTER, DR DAMIR Thibodeaux Consulting Unavailable WENDY WHITMAN Consulting Unavailable JOAN ., DR URENA Admitting Unavailable HOY ., DR URENA Attending Unavailable EMILYY ., DR URENA Primary Care Unavailable JOAN ., DR URENA Consulting Unavailable German MARTIN, Navdeep Dodd Attending Unavailable DAKOTA BRYANT Referring Unavailable DAKOTA BRYANT Referring Unavailable DAKOTA BRYANT Attending Unavailable DAKOTA BRYANT Referring Unavailable DAKOTA BRYANT Attending Unavailable DAKOTA BRYANT Referring Unavailable DAKOTA BRYANT Referring Unavailable DAKOTA BRYANT Admitting Unavailable DAKOTA BRYANT Attending Unavailable DONNA TAYLOR Consulting Unavailable MISA SANCHEZ Consulting Unavailable Romel Franco MD Primary Care Provider [phone] Unavailable Primary Care Provider UnavailRomel Thao MD Primary Care Provider [phone] MELY PAIGE Attending Unavailable MELY PAIGE Referring [...] Unavailable ASHER, JONA Attending Unavailable MANNY, DAKOTA Mclaughlin Referring Unavailable MANNY, DAKOTA Mclaughlin Attending Unavailable GRECIA, MELY Welsh Attending Unavailable MELY PAIGE Referring Unavailable EMIR, Óscar Thibodeaux Attending Unavailable Romel Franco Referring Unavailable Óscar FIELD Attending Unavailable FIELD, Óscar Thibodeaux Attending Unavailable MICHI ARCHIBALD Attending Unavailable ELTAJOSHUA, AB Attending Unavailable Allergies Allergy Classification Reported Allergen(s) Allergy Type Date of Onset Reaction(s) Facility Quinolones (antibiotic) (1 source) levoFLOXacin; Translations: [LEVOFLOXACIN] Drug Allergy 4 [facility] Repository (1 source) 30875,00; Translations: [55522,00] Propensity to adverse reactions (disorder) 9 [facility] Repository (2 sources) levoFLOXacin; Translations: [LEVOFLOXACIN] Drug Allergy 3 [facility] Repository (20 sources) levoFLOXacin Drug Allergy [...] at 1448 take 2 tablets by mo [facility] every six hours as needed acetaminophen (Tylenol) [...] by mouth in the morning magnesium hydroxide (ShoeDazzle MILK OF MAGNESIA ORAL) Take 2 tablets by mouth in the morning. 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; Translations: [...] Onset: 03-05-2018 Chronic Disorders of lipid metabolism (12 sources) Hyperlipidemia, unspecified; Translations: [Hyperlipidemia] Onset: 03-18-2012 Chronic Essential hypertension (20 sources) Essential (primary) hypertension; Translations: [Hypertensive disorder] Onset: 03-05-2018 10-30-2023 Chronic Malaise and fatigue (1 source) Other fatigue; Translations: [OTHER FATIGUE] Onset: 07-09-2022 Episodic Osteoarthritis (20 sources) Unilateral primary osteoarthritis, right knee; Translations: [Osteoarthritis of left knee joint] Onset: 03-18-2023 03-18-2023 Chronic Other aftercare (1 source) 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/antip latelets; Translations: [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) USE OF ANTITHROMBOTICS/ANTIP LATELETS] Onset: 03-05-2018 Episodic Other aftercare (1 source) USP (current) use of aspirin; Translations: [USP (CURRENT) USE OF ASPIRIN] Onset: 03-05-2018 Episodic Other aftercare (1 source) 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; Translations: [OTH USP CURRENT DRUG THERAPY] Onset: 07-09-2022 Episodic Other aftercare (1 source) extermination inspector (current) use of oral hypoglycemic drugs; Translations: [USP (CURRENT) USE OF ORAL HYPOGLYCEMIC DRUGS] Onset: [...] right knee degenerative joint disease Onset: 12-04-2023 Unclassified (2 sources) Pre-op Exam; Translations: [Pre-op Exam] Onset: 01-27-2025 Unclassified (2 sources) Previous [place] Onset: 01-27-2025 Past or Other Problems Problem Classification Problem [...] Value Interpretation Reference Range Facility Office Visiton 01-27-2025 Follow-up visit [id number] Sonia Stauffer 1945 M Date Provider Department Center 01/27/2025 Fei-MICHI ARCHIBALD LOLY [facility] Family History Problem Relation Age of Onset Heart attack Mother 60 Heart attack Maternal Grandmother Family Status - Relation Status Age at Mother Father Maternal Grandmother Level of Service:75590 [place] OFFICE/OUTPATIENT ESTABLISHED MOD MDM 30 MIN Reason for Visit and Comments: Pre-op Exam [863784] - Had pre-op testing yesterday- EKG, labs, and CXR Coronary Artery Disease [187] Hypertension [603432] Hyperlipidemia [182] - Simvastatin was switched to rosuvastatin at last apt in Apr [address] Espitia. Previous [place] [Other] Normal [facility] Ambulatory Visit Summaryon 0 01-20-2025 Ambulatory Visit [...] Óscar FIELD MD Where: [facility] [address] [address]- You Need to Schedule the Following Appointments Follow Up with Óscar FIELD MD, URL When: Where: [facility] [address], [place] [address]- Medications What How Much When Instructions Unchanged [...] Hyperlipemia Lipoma of scalp TN (myocardial infarction) Microhematuria Morbid obesity with BMI [...] also be done in non-medical settings for faith or cultural reasons. Who should be circumcised? The decision to leave the foreskin on or to have it removed is a personal one. It is often based on faith, social, or cultural beliefs. Circumcision is (more content not included)... Normal [facility] Ambulatory Visit Summary Ambulatory Visit Summary SONIA [...] Following Appointments Follow Up with EMIR MARTIN, Óscar Thibodeaux, GILMAR When: Where: [facility] [address], [place] [address]- Medications What How Much When Instructions Unchanged [...] Hyperlipemia Lipoma of scalp TN (myocardial infarction) Microhematuria Morbid obesity with BMI [...] also be done in non-medical settings for faith or cultural reasons. Who should be circumcised? The decision to leave the foreskin on or to have it removed is a personal one. It is often based on faith, social, or cultural beliefs. Circumcision is most often done in the first few days of life, but it may also be done later in life. In general: ??? All healthy boys with a normal penis formation can be circumcised in the first few days after . ??? Boys who are (more content not included)... Normal [facility] Urology Office/Clinic Noteon 01-20-2025 Urology Office/Clinic Note [...] 3. 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 4. Microhematuria (R31.29: Other microscopic hematuria) UA shows moderate blood wo signs of infection. Denies gross hematuria. Suspect secondary to #1 after exam. -UA after dorsal slit/circ Follow-up With When Contact Information EMIR MARTIN, Óscar Thibodeaux, URL [facility] [address], [place] [address]- Additional Instructions: schedule dorsal slit, possible Circumcision [...] Hyperlipemia Lipoma of scalp TN (myocardial infarction) Microhematuria Morbid obesity with BMI [...] per month, (more content not included)... Normal [facility] Comment on above: Result Comment: Elec tronically Signed By: Óscar FIELD MD\.br\Date and Time Signed: 01/20/25 13:54 EDT\.br\Electronically Co-Signed By: Micaela Monsalve\.br\Date and Time Co-Signed: 01/20/25 13:52 EDT Telephoneon 01-15-2025 Telephone [id number] Sonia Stauffer 1945 M Date Provider Department Center 01/15/2025 GORDON GRANDE [facility]Y [facility] Family History Problem Relation Age of Onset Heart attack Mother 60 Heart attack Maternal Grandmother Family Status - Relation Status Age at Mother Maternal Grandmother [facility] XR Knee - right 1 or [...] Stable RT total knee replacement. 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 e Radiology Study observation (narrative) [facility] Office Visiton 05-06-2024 Follow-up visit [id number] Sonia Stauffer 1945 [facility] Provider Department Center 05/06/2024 MORAIMA MORRISON [facility] Family History Problem Relation Age of Onset Heart attack Mother 60 Heart attack Maternal Grandmother Family Status - Relation Status Age at Mother Maternal Grandmother Level of Service:62177 [place] OFFICE/OUTPATIENT ESTABLISHED MOD MDM 30 MIN [facility] XR Knee - right 1 or 2 Views on 01-14-2024 Imaging Result: January 14, 2004 x-rays AP and lateral of the right knee demonstrate cemented knee replacement in good position alignment without signs of loosening fracture or failure. 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 [employer] [facility] e Radiology Study observation (narrative) [facility] CBC without diffon Erythrocyte distribution width (RBC) [Ratio] 13.3 % 11.5 - 15.0 % [facility] Hematocrit (Bld) [Volume fraction] 36.5 % Low 39 - 49 % [facility] Hemoglobin (Bld) [Mass/Vol] 12.4 g/dL Low 13.0 - 17.0 g/dL [facility] Interpretation and review of laboratory results Abnormal [facility] MCH (RBC) [Entitic mass] 31.3 pg 27 - 34 pg [facility] MCHC (RBC) [Mass/Vol] 33.9 g/dL 32 - 36 g/dL [facility] MCV (RBC) [Entitic vol] 93 fL 80 - 100 fL [facility] Platelet mean volume (Bld) [Entitic vol] 8.4 fL 7 - 12 fL [facility] Platelets (Bld) [#/Vol] 241 10*3/uL [facility] RBC (Bld) [#/Vol] 3.95 10*6/uL Low [facility] WBC corrected for nucl RBC Auto (Bld) [#/Vol] 12.0 High [facility] COMPLETE BLOOD COUNTon 12-05 Erythrocyte distribution width (RBC) [Ratio] 13.3 % Normal 11.5-15.0 [facility] Comment on above: Performed By: #### Casey BARTON, BMP #### [facility] ([id number]) [address], [address] [place] [address] Hematocrit (Bld) [Volume fraction] 36.5 % Low 39-49 [facility] Comment on above: Performed By: #### Casey BARTON, BMP #### [facility] ([id number]) [address], [address] [place] [address] Hemoglobin (Bld) [Mass/Vol] 12.4 g/dL Low 13.0-17.0 [facility] Comment on above: Performed By: #### Casey BARTON, BMP #### [facility] ([id number]) [address], [address] [place] [address] MCH (RBC) [Entitic mass] 31.3 pg Normal 27-34 [facility] Comment on above: Performed By: #### Casey BARTON, BMP #### [facility] ([id number]) [address], [address] [place] [address] MCHC (RBC) [Mass/Vol] 33.9 g/dL Normal 32-36 [facility] Comment on above: Performed By: #### C BCA, BMP #### [facility] ([id number]) [address], [address] [place] [address] MCV (RBC) [Entitic vol] 93 fL Normal 80-100 [facility] Comment on above: Performed By: #### C BCA, BMP #### [facility] ([id number]) [address], [address] [place] [address] Platelet mean volume (Bld) [Entitic vol] 8.4 fL Normal 7-12 [facility] Comment on above: Performed By: #### C ORALIA, BMP #### [facility] ([id number]) [address] [place] [address] Platelets (Bld) [#/Vol] 241 10*3/uL Normal 150-450 [facility] Comment on above: Performed By: #### C BCA, BMP #### [facility] ([id number]) [address], [address] [place] [address] RBC COUNT 3.95 X10E12/L Low 4.10-5.70 [facility] Comment on above: Performed By: #### C BCA, BMP #### [facility] ([id number]) [address] [place] [address] WBC (Bld) [#/Vol] 12.0 10*3/uL High 4.0-11.0 [facility] Comment on above: Performed By: #### C BCA, BMP #### [facility] ([id number]) [address] [place] [address] COMPREHENSIVE METABOLIC PANE Jace 12-06-2023 Albumin [Mass/Vol] 3.3 g/dL Normal 3.2-5.3 [facility] Comment on above: Performed By: #### C BCA, BMP #### [facility] ([id number]) [address], [address] [place] [address] ALP [Catalytic activity/Vol] 22 U/L Low 39-130 [facility] Comment on above: Performed By: #### C ORALIA, BMP #### [facility] ([id number]) [address] [place] [address] ALT [Catalytic activity/Vol] 13 U/L Normal 0-40 [facility] Comment on above: Performed By: #### C ORALIA, BMP #### [facility] ([id number]) [address] [place] [address] Anion gap [Moles/Vol] 7 mmol/L Normal 5-15 [facility] Comment on above: Performed By: #### C ORALIA, BMP #### [facility] ([id number]) [address] [place] [address] AST [Catalytic activity/Vol] 17 U/L Normal 0-41 [facility] Comment on above: Performed By: #### C ORALIA, BMP #### [facility] ([id number]) [address] [place] [address] Bilirubin [Mass/Vol] 1.7 mg/dL High 0.3-1.2 [facility] Comment on above: Performed By: #### C ORALIA, BMP #### [facility] ([id number]) [address] [place] [address] Calcium [Mass/Vol] 7.9 mg/dL Low 8.5-10.5 [facility] Comment on above: Performed By: #### C BCA, BMP #### [facility] ([id number]) [address] [place] [address] Chloride [Moles/Vol] 98 mmol/L Normal 98-109 [facility] Comment on above: Performed By: #### C BCA, BMP #### [facility] ([id number]) [address] [place] [address] CO2 [Moles/Vol] 26 mmol/L Normal 22-32 [facility] Comment on above: Performed By: #### C BCA, BMP #### [facility] ([id number]) [address] [place] [address] Creatinine [Mass/Vol] 0.96 mg/dL Normal 0.70-1.20 [facility] Comment on above: Result Comment: METH OD TRACEABLE TO IDMS STANDARD Performed By: #### C ORALIA, BMP #### [facility] ([id number]) [address] [place] [address] GFR/1.73 sq M.predicted among non-blacks MDRD (S/P/Bld) [Vol rate/Area] 81 mL/min/{1.73_m2} Normal >[address] [facility] Comment on above: Result Comment: Reported eGFR is based on the CKD-EPI 2020 equation that does not use a race coefficient. Performed By: #### C BCA, BMP #### [facility] ([id number]) [address] [place] [address] Glucose [Mass/Vol] 96 mg/dL Normal 65-99 [facility] Comment on above: Performed By: #### C BCA, BMP #### [facility] ([id number]) [address] [place] [address] Potassium [Moles/Vol] 3.9 mmol/L Normal 3.5-5.0 [facility] Comment on above: Performed By: #### C BCA, BMP #### [facility] ([id number]) [address] [place] [address] Protein [Mass/Vol] 5.8 g/dL Low 6.0-8.0 [facility] Comment on above: Performed By: #### C BCA, BMP #### [facility] ([id number]) [address] [place] [address] Sodium [Moles/Vol] 131 mmol/L Low 134-146 [facility] Comment on above: Performed By: #### C BCA, BMP #### [facility] ([id number]) [address] [place] [address] Urea nitrogen [Mass/Vol] 17 mg/dL Normal 5-27 [facility] Comment on above: Performed By: #### C BCA, BMP #### [facility] ([id number]) [address] [place] [address] CT CHEST W CONTon 12-06-2023 CT CHEST [...] Jarrett MD on 12/06/2023 3:45 PM Normal [facility] CT Chest limited W contrast Javier [...] Kameron Jarrett MD on 12/06/2023 3:45 PM [facility] Kameron Jarrett MD - 12/06/2023 CT of [...] Kameron Jarrett MD on 12/06/2023 3:45 PM [facility] Radiology Study observation (narrative) [facility] CT Chest limited W contrast IVOrdered By: Kameron Jarrett on 12-06-2023 [employer] Work Phone: Comprehensive metabolic pane jace 12-06-2023 Albumin [Mass/Vol] 3.3 g/dL 3.2 - 5.3 g/dL [facility] ALP [Catalytic activity/Vol] 22 U/L Low 39 - 130 U/L [facility] ALT No additional P-5'-P [Catalytic activity/Vol] 13 U/L 0 - 40 U/L [facility] Anion gap [Moles/Vol] 7 mmol/L 5 - 15 mmol/L [facility] AST [Catalytic activity/Vol] 17 U/L 0 - 41 U/L [facility] Bilirubin [Mass/Vol] 1.7 mg/dL High 0.3 - 1.2 mg/dL [facility] Calcium [Mass/Vol] 7.9 mg/dL Low 8.5 - 10. 5 mg/dL [facility] Chloride [Moles/Vol] 98 mmol/L 98 - 109 mmol/L [facility] CO2 [Moles/Vol] 26 mmol/L 22 - 32 mmol/L [facility] Creatinine [Mass/Vol] 0.96 mg/dL 0.70 - 1.20 mg/dL [facility] Comment on above: METHOD TRACEABLE TO [facility] STANDARD eGFR (CKD-EPI)non-race dependent 81 - PINF [facility] Comment on above: Reported eGFR is based on the CKD-EPI 2020 equation that does not use a race coefficient. Glucose [Mass/Vol] 96 mg/dL 65 - 99 mg/dL [facility] Interpretation and review of laboratory results Abnormal [facility] Potassium [Moles/Vol] 3.9 mmol/L 3.5 - 5.0 mmol/L [facility] Protein [Mass/Vol] 5.8 g/dL Low 6.0 - 8.0 g/dL [facility] Sodium [Moles/Vol] 131 mmol/L Low 134 - 146 mmol/L [facility] Urea nitrogen [Mass/Vol] 17 mg/dL 5 - 27 mg/dL [facility] MAGNESIUMon 12-06-2023 Magnesium [Mass/Vol] 1.9 mg/dL Normal 1.8-2.6 [facility] Comment on above: Performed By: #### C BCA, BMP #### [facility] ([id number]) [address] [place] [address] Magnesiumon 12-06-2023 Magnesium [Mass/Vol] 1.9 mg/dL 1.8 - 2.6 mg/dL [facility] No Panel Informationon 12-05 [facility] CBC without diffon Erythrocyte distribution width (RBC) [Ratio] 13.0 % 11.5 - 15.0 % [facility] Hematocrit (Bld) [Volume fraction] 38.1 % Low 39 - 49 % [facility] Hemoglobin (Bld) [Mass/Vol] 13.1 g/dL 13.0 - 17.0 g/dL [facility] Interpretation and review of laboratory results Abnormal [facility] MCH (RBC) [Entitic mass] 31.2 pg 27 - 34 pg [facility] MCHC (RBC) [Mass/Vol] 34.4 g/dL 32 - 36 g/dL [facility] MCV (RBC) [Entitic vol] 91 fL 80 - 100 fL [facility] Platelet mean volume (Bld) [Entitic vol] 8.2 fL 7 - 12 fL [facility] Platelets (Bld) [#/Vol] 243 10*3/uL [facility] RBC (Bld) [#/Vol] 4.20 10*6/uL [facility] WBC corrected for nucl RBC Auto (Bld) [#/Vol] 12.6 High [facility] COMPLETE BLOOD COUNTon 12-04 Erythrocyte distribution width (RBC) [Ratio] 13.0 % Normal 11.5-15.0 [facility] Comment on above: Performed By: #### Casey BCA, BMP #### [facility] ([id number]) [address] [place] [address] Hematocrit (Bld) [Volume fraction] 38.1 % Low 39-49 [facility] Comment on above: Performed By: #### Casey BCA, BMP #### [facility] ([id number]) [address] [place] [address] Hemoglobin (Bld) [Mass/Vol] 13.1 g/dL Normal 13.0-17.0 [facility] Comment on above: Performed By: #### C ORALIA, BMP #### [facility] ([id number]) [address] [place] [address] MCH (RBC) [Entitic mass] 31.2 pg Normal 27-34 [facility] Comment on above: Performed By: #### C ORALIA, BMP #### [facility] ([id number]) [address] [place] [address] MCHC (RBC) [Mass/Vol] 34.4 g/dL Normal 32-36 [facility] Comment on above: Performed By: #### C ORALIA, BMP #### [facility] ([id number]) [address] [place] [address] MCV (RBC) [Entitic vol] 91 fL Normal 80-100 [facility] Comment on above: Performed By: #### C ORALIA, BMP #### [facility] ([id number]) [address] [place] [address] Platelet mean volume (Bld) [Entitic vol] 8.2 fL Normal 7-12 [facility] Comment on above: Performed By: #### C ORALIA, BMP #### [facility] ([id number]) [address] [place] [address] Platelets (Bld) [#/Vol] 243 10*3/uL Normal 150-450 [facility] Comment on above: Performed By: #### C ORALIA, BMP #### [facility] ([id number]) [address] [place] [address] RBC COUNT 4.20 X10E12/L Normal 4.10-5.70 [facility] Comment on above: Performed By: #### C BCA, BMP #### [facility] ([id number]) [address] [place] [address] WBC (Bld) [#/Vol] 12.6 10*3/uL High 4.0-11.0 [facility] Comment on above: Performed By: #### C BCA, BMP #### [facility] ([id number]) [address] [place] [address] COMPREHENSIVE METABOLIC PANE Jace 12-05-2023 Albumin [Mass/Vol] 3.3 g/dL Normal 3.2-5.3 [facility] Comment on above: Performed By: #### C BCA, BMP #### [facility] ([id number]) [address] [place] [address] ALP [Catalytic activity/Vol] 25 U/L Low 39-130 [facility] Comment on above: Performed By: #### C BCA, BMP #### [facility] ([id number]) [address] [place] [address] ALT [Catalytic activity/Vol] 16 U/L Normal 0-40 [facility] Comment on above: Performed By: #### C BCA, BMP #### [facility] ([id number]) [address] [place] [address] Anion gap [Moles/Vol] 7 mmol/L Normal 5-15 [facility] Comment on above: Performed By: #### C BCA, BMP #### [facility] ([id number]) [address] [place] [address] AST [Catalytic activity/Vol] 16 U/L Normal 0-41 [facility] Comment on above: Performed By: #### C BCA, BMP #### [facility] ([id number]) [address], [address] [place] [address] Bilirubin [Mass/Vol] 1.6 mg/dL High 0.3-1.2 [facility] Comment on above: Performed By: #### C BCA, BMP #### [facility] ([id number]) [address], [address] [place] [address] Calcium [Mass/Vol] 7.9 mg/dL Low 8.5-10.5 [facility] Comment on above: Performed By: #### C BCA, BMP #### [facility] ([id number]) [address] [address] [place] [address] Chloride [Moles/Vol] 97 mmol/L Low 98-109 [facility] Comment on above: Performed By: #### C BCA, BMP #### [facility] ([id number]) [address], [facility] [address] [place] [address] CO2 [Moles/Vol] 25 mmol/L Normal 22-32 [facility] Comment on above: Performed By: #### C BCA, BMP #### [facility] ([id number]) [address] [address] [place] [address] Creatinine [Mass/Vol] 0.88 mg/dL Normal 0.70-1.20 [facility] Comment on above: Result Comment: METH OD TRACEABLE TO IDMS STANDARD Performed By: #### C BCA, BMP #### [facility] ([id number]) [address] [place] [address] GFR/1.73 sq M.predicted among non-blacks MDRD (S/P/Bld) [Vol rate/Area] 89 mL/min/{1.73_m2} Normal >[address] [facility] Comment on above: Result Comment: Reported eGFR is based on the CKD-EPI 2020 equation that does not use a race coefficient. Performed By: #### C BCA, BMP #### [facility] ([id number]) [address] [address] [place] [address] Glucose [Mass/Vol] 134 mg/dL High 65-99 [facility] Comment on above: Performed By: #### C BCA, BMP #### [facility] ([id number]) [address] [place] [address] Potassium [Moles/Vol] 4.0 mmol/L Normal 3.5-5.0 [facility] Comment on above: Performed By: #### C BCA, BMP #### [facility] ([id number]) [address] [place] [address] Protein [Mass/Vol] 5.6 g/dL Low 6.0-8.0 [facility] Comment on above: Performed By: #### C BCA, BMP #### [facility] ([id number]) [address] [place] [address] Sodium [Moles/Vol] 129 mmol/L Low 134-146 [facility] Comment on above: Performed By: #### C BCA, BMP #### [facility] ([id number]) [address] [place] [address] Urea nitrogen [Mass/Vol] 15 mg/dL Normal 5-27 [facility] Comment on above: Performed By: #### C BCA, BMP #### [facility] ([id number]) [address] [place] [address] Comprehensive metabolic pane jace 12-05-2023 Albumin [Mass/Vol] 3.3 g/dL 3.2 - 5.3 g/dL [facility] ALP [Catalytic activity/Vol] 25 U/L Low 39 - 130 U/L [facility] ALT No additional P-5'-P [Catalytic activity/Vol] 16 U/L 0 - 40 U/L [facility] Anion gap [Moles/Vol] 7 mmol/L 5 - 15 mmol/L [facility] AST [Catalytic activity/Vol] 16 U/L 0 - 41 U/L [facility] Bilirubin [Mass/Vol] 1.6 mg/dL High 0.3 - 1.2 mg/dL [facility] Calcium [Mass/Vol] 7.9 mg/dL Low 8.5 - 10. 5 mg/dL [facility] Chloride [Moles/Vol] 97 mmol/L Low 98 - 109 mmol/L [facility] CO2 [Moles/Vol] 25 mmol/L 22 - 32 mmol/L [facility] Creatinine [Mass/Vol] 0.88 mg/dL 0.70 - 1.20 mg/dL [facility] Comment on above: METHOD TRACEABLE TO [facility] STANDARD eGFR (CKD-EPI)non-race dependent 89 - PINF [facility] Comment on above: Reported eGFR is based on the CKD-EPI 2020 equation that does not use a race coefficient. Glucose [Mass/Vol] 134 mg/dL High 65 - 99 mg/dL [facility] Interpretation and review of laboratory results Abnormal [facility] Potassium [Moles/Vol] 4.0 mmol/L 3.5 - 5.0 mmol/L [facility] Protein [Mass/Vol] 5.6 g/dL Low 6.0 - 8.0 g/dL [facility] Sodium [Moles/Vol] 129 mmol/L Low 134 - 146 mmol/L [facility] Urea nitrogen [Mass/Vol] 15 mg/dL 5 - 27 mg/dL [facility] ECG 12 leadon 12-05-[address] [facility] Free T4 [Mass/Vol]on 024 [facility] MAGNESIUMon 12-05-2023 Magnesium [Mass/Vol] 2.1 mg/dL Normal 1.8-2.6 [facility] Comment on above: Performed By: #### C BCA, BMP #### [facility] ([id number]) [address] [place] [address] Magnesiumon 12-05-2023 Magnesium [Mass/Vol] 2.1 mg/dL 1.8 - 2.6 mg/dL [facility] No Panel Informationon 12-04 [facility] SODIUMon 12-05-2023 Sodium [Moles/Vol] 129 mmol/L Low 134-146 [facility] Comment on above: Performed By: #### Casey BARTON, BMP #### [facility] ([id number]) [address] [place] [address] Sodiumon 12-05-2023 Sodium [Moles/Vol] 129 mmol/L Low 134 - 146 mmol/L [facility] Sodium [Moles/Vol]on 024 Interpretation and review of laboratory results [facility] T4, freeon 12-05-2023 Free T4 [Mass/Vol] 0.84 ng/dL 0.61 - 1. 60 ng/dL [facility] Comment on above: CLIA ID [id number] URINALYSISon 12-05-2023 Bilirubin Ql (U) Negative Normal NEG [facility] Comment on above: Performed By: #### Casey BARTON, BMP #### [facility] ([id number]) [address] [place] [address] BLOOD/HGB Negative Normal NEG [facility] Comment on above: Performed By: #### Casey BARTON, BMP #### [facility] ([id number]) [address] [place] [address] Color (U) YELLOW Normal YELLOW [facility] Comment on above: Performed By: #### Casey BARTON, BMP #### [facility] ([id number]) [address] [place] [address] Glucose Ql (U) Negative Normal NEG [facility] Comment on above: Performed By: #### Caesy BARTON, BMP #### [facility] ([id number]) [address] [place] [address] Ketones Ql (U) Negative Normal NEG [facility] Comment on above: Performed By: #### Casey BARTON, BMP #### [facility] ([id number]) [address] [place] [address] Leukocyte esterase Test strip Ql (U) Negative Normal NEG [facility] Comment on above: Performed By: #### C ORALIA, BMP #### [facility] ([id number]) [address] [place] [address] Nitrite Ql (U) Negative Normal NEG [facility] Comment on above: Performed By: #### C ORALIA, BMP #### [facility] ([id number]) [address] [place] [address] pH (U) 6.0 [pH] Normal 5.0-8.5 [facility] Comment on above: Performed By: #### C ORALIA, BMP #### [facility] ([id number]) [address] [place] [address] Protein Ql (U) Negative Normal NEG [facility] Comment on above: Performed By: #### C BCA, BMP #### [facility] ([id number]) [address] [place] [address] Specific gravity (U) [Rel density] >1.030 Normal 1.003-1.035 [facility] Comment on above: Performed By: #### C BCA, BMP #### [facility] ([id number]) [address] [place] [address] TURBIDITY CLEAR Normal CLEAR [facility] Comment on above: Performed By: #### C BCA, BMP #### [facility] ([id number]) [address] [place] [address] Urobilinogen Qn (U) 1.0 {Dia'U}/dL Normal <1.1 [facility] Comment on above: Performed By: #### C BCA, BMP #### [facility] ([id number]) [address] [place] [address] Urinalysison 12-05-2023 Bilirubin Ql (U) Negative Negative^Ne g ative [facility] Color (U) YELLOW YELLOW^YELLO W [facility] Glucose (U) [Mass/Vol] Negative Negative^Neg ative mg/dL [facility] Hemoglobin Auto test strip Ql (U) Negative Negative^Neg ative [facility] Ketones (U) [Mass/Vol] Negative Negative^Neg ative mg/dL [facility] Leukocyte esterase Auto test strip Ql (U) Negative Negative^Neg ative [facility] Nitrite Auto test strip Ql (U) Negative Negative^Neg ative [facility] pH (U) 6.0 [pH] 5.0 - 8.5 [facility] Protein (U) [Mass/Vol] Negative Negative^Neg ative mg/dL [facility] Specific gravity Refractometry automated (U) [Rel density] 1.003 - 1.035 [facility] Turbidity Ql (U) CLEAR CLEAR^CLEAR [facility] Urobilinogen Qn (U) 1.0 NINF [facility] XR CHEST 2 VWSon 12-05-2023 XR [...] Wan MD on 12/05/2023 10:52 AM Normal [facility] XR Chest PA and Lateralon Indication: Leukocytosis. [...] Anastacia Wan MD on 12/05/2023 10:52 AM [facility] Anastacia Wan M D - 12/05/2023 Indication: [...] Anastacia Wan MD on 12/05/2023 10:52 AM [facility] Radiology Study observation (narrative) [facility] XR Chest PA and LateralOrder ed By: Anastacia Wan on 12-05-2023 [facility] Work Phone: ABO Rh Repeaton 12-04-[address] [facility] Rh Nom (Bld) Positive [facility] CBC without diffon Erythrocyte distribution width (RBC) [Ratio] 13.1 % 11.5 - 15.0 % [facility] Hematocrit (Bld) [Volume fraction] 42.1 % 39 - 49 % [facility] Hemoglobin (Bld) [Mass/Vol] 14.5 g/dL 13.0 - 17.0 g/dL [facility] Interpretation and review of laboratory results Abnormal [facility] MCH (RBC) [Entitic mass] 31.2 pg 27 - 34 pg [facility] MCHC (RBC) [Mass/Vol] 34.3 g/dL 32 - 36 g/dL [facility] MCV (RBC) [Entitic vol] 91 fL 80 - 100 fL [facility] Platelet mean volume (Bld) [Entitic vol] 7.9 fL 7 - 12 fL [facility] Platelets (Bld) [#/Vol] 268 10*3/uL [facility] RBC (Bld) [#/Vol] 4.63 10*6/uL [facility] WBC corrected for nucl RBC Auto (Bld) [#/Vol] 14.2 High [facility] COMPLETE BLOOD COUNTon 12-03 Erythrocyte distribution width (RBC) [Ratio] 13.1 % Normal 11.5-15.0 [facility] Comment on above: Performed By: #### Casey BC, CMP, , 2776-, TSHR, 302-7 #### [facility] ([id number]) [address] [place] [address] Hematocrit (Bld) [Volume fraction] 42.1 % Normal 39-49 [facility] Comment on above: Performed By: #### Casey BC, CMP, , 2776-05, TSHR, 30247 #### [facility] ([id number]) [address] [place] [address] Hemoglobin (Bld) [Mass/Vol] 14.5 g/dL Normal 13.0-17.0 [facility] Comment on above: Performed By: #### C BC, CMP, , 2776-05, TSHR, 30247 #### [facility] ([id number]) [address] [place] [address] MCH (RBC) [Entitic mass] 31.2 pg Normal 27-34 [facility] Comment on above: Performed By: #### Casey BC, CMP, 80225-7, 2776-, TSHR, 3024-7 #### [facility] ([id number]) [address] [place] [address] MCHC (RBC) [Mass/Vol] 34.3 g/dL Normal 32-36 [facility] Comment on above: Performed By: #### Casey BC, CMP, 76275-4, 2776-, TSHR, 3024-7 #### [facility] ([id number]) [address] [place] [address] MCV (RBC) [Entitic vol] 91 fL Normal 80-100 [facility] Comment on above: Performed By: #### C BC, CMP, , 2776-, TSHR, 302-7 #### [facility] ([id number]) [address] [place] [address] Platelet mean volume (Bld) [Entitic vol] 7.9 fL Normal 7-12 [facility] Comment on above: Performed By: #### C BC, CMP, , 2776-05, TSHR, 3024-7 #### [facility] ([id number]) [address] [place] [address] Platelets (Bld) [#/Vol] 268 10*3/uL Normal 150-450 [facility] Comment on above: Performed By: #### Casey BC, CMP, , 2776-05, TSHR, 30247 #### [facility] ([id number]) [address] [place] [address] RBC COUNT 4.63 X10E12/L Normal 4.10-5.70 [facility] Comment on above: Performed By: #### C BC, CMP, , 2776-, TSHR, 3024-7 #### [facility] ([id number]) [address] [place] [address] WBC (Bld) [#/Vol] 14.2 10*3/uL High 4.0-11.0 [facility] Comment on above: Performed By: #### Casey BC, CMP, , 2776-05, TSHR, 3024-7 #### [facility] ([id number]) [address] [place] [address] COMPREHENSIVE METABOLIC PANE Jace 12-04-2023 Albumin [Mass/Vol] 3.8 g/dL Normal 3.2-5.3 [facility] Comment on above: Performed By: #### C BC, CMP, 54080-7, 7-1, TSHR, 3024-7 #### [facility] ([id number]) [address] [place] [address] ALP [Catalytic activity/Vol] 32 U/L Low 39-130 [facility] Comment on above: Performed By: #### C BC, CMP, 87095-6, 2776-1, TSHR, 302-7 #### [facility] ([id number]) [address] [place] [address] ALT [Catalytic activity/Vol] 20 U/L Normal 0-40 [facility] Comment on above: Performed By: #### Casey BC, CMP, 12084-9, 2776-1, TSHR, 302-7 #### [facility] ([id number]) [address] [place] [address] Anion gap [Moles/Vol] 10 mmol/L Normal 5-15 [facility] Comment on above: Performed By: #### C BC, CMP, 78033-9, 2776-1, TSHR, 302-7 #### [facility] ([id number]) [address] [place] [address] AST [Catalytic activity/Vol] 21 U/L Normal 0-41 [facility] Comment on above: Performed By: #### Casey BC, CMP, 77165-1, 2776-1, TSHR, 3024-7 #### [facility] ([id number]) [address] [place] [address] Bilirubin [Mass/Vol] 1.6 mg/dL High 0.3-1.2 [facility] Comment on above: Performed By: #### Casey BC, CMP, 64464-7, 2776-1, TSHR, 3024-7 #### [facility] ([id number]) [address] [place] [address] Calcium [Mass/Vol] 8.2 mg/dL Low 8.5-10.5 [facility] Comment on above: Performed By: #### C BC, CMP, , 2776-05, TSHR, 3024-7 #### [facility] ([id number]) [address] [place] [address] Chloride [Moles/Vol] 95 mmol/L Low 98-109 [facility] Comment on above: Performed By: #### C BC, CMP, , 2776-05, TSHR, 3024-7 #### [facility] ([id number]) [address] [place] [address] CO2 [Moles/Vol] 25 mmol/L Normal 22-32 [facility] Comment on above: Performed By: #### C BC, CMP, , 2776-05, TSHR, 3024-7 #### [facility] ([id number]) [address] [place] [address] Creatinine [Mass/Vol] 0.91 mg/dL Normal 0.70-1.20 [facility] Comment on above: Result Comment: METH OD TRACEABLE TO IDMS STANDARD Performed By: #### C BC, CMP, , 2776-05, TSHR, 3024-7 #### [facility] ([id number]) [address] [place] [address] GFR/1.73 sq M.predicted among non-blacks MDRD (S/P/Bld) [Vol rate/Area] 87 mL/min/{1.73_m2} Normal >[address] [facility] Comment on above: Result Comment: Reported eGFR is based on the CKD-EPI 2020 equation that does not use a race coefficient. Performed By: #### C BC, CMP, , 2776-05, TSHR, 302-7 #### [facility] ([id number]) [address] [place] [address] Glucose [Mass/Vol] 174 mg/dL High 65-99 [facility] Comment on above: Performed By: #### Casey BC, CMP, 77399-0, 2776-1, TSHR, 302-7 #### [facility] ([id number]) [address] [place] [address] Potassium [Moles/Vol] 3.8 mmol/L Normal 3.5-5.0 [facility] Comment on above: Performed By: #### Casey BC, CMP, , 2776-, TSHR, 302-7 #### [facility] ([id number]) [address] [place] [address] Protein [Mass/Vol] 6.3 g/dL Normal 6.0-8.0 [facility] Comment on above: Performed By: #### Casey BOBBY, CMP, 37937-1, 2776-, TSHR, 3024-7 #### [facility] ([id number]) [address] [place] [address] Sodium [Moles/Vol] 130 mmol/L Low 134-146 [facility] Comment on above: Performed By: #### Casey BC, CMP, 55387-3, 2776-, TSHR, 3024-7 #### [facility] ([id number]) [address] [place] [address] Urea nitrogen [Mass/Vol] 16 mg/dL Normal 5-27 [facility] Comment on above: Performed By: #### Casey BC, CMP, 78937-9, 2776-1, TSHR, 3024-7 #### [facility] ([id number]) [address] [place] [address] Comprehensive metabolic pane [facility] 12-04-2023 Albumin [Mass/Vol] 3.8 g/dL 3.2 - 5.3 g/dL [facility] ALP [Catalytic activity/Vol] 32 U/L Low 39 - 130 U/L [facility] ALT No additional P-5'-P [Catalytic activity/Vol] 20 U/L 0 - 40 U/L [facility] Anion gap [Moles/Vol] 10 mmol/L 5 - 15 mmol/L [facility] AST [Catalytic activity/Vol] 21 U/L 0 - 41 U/L [facility] Bilirubin [Mass/Vol] 1.6 mg/dL High 0.3 - 1.2 mg/dL [facility] Calcium [Mass/Vol] 8.2 mg/dL Low 8.5 - 10. 5 mg/dL [facility] Chloride [Moles/Vol] 95 mmol/L Low 98 - 109 mmol/L [facility] CO2 [Moles/Vol] 25 mmol/L 22 - 32 mmol/L [facility] Creatinine [Mass/Vol] 0.91 mg/dL 0.70 - 1.20 mg/dL [facility] Comment on above: METHOD TRACEABLE TO [facility] STANDARD eGFR (CKD-EPI)non-race dependent 87 - PINF [facility] Comment on above: Reported eGFR is based on the CKD-EPI 2020 equation that does not use a race coefficient. Glucose [Mass/Vol] 174 mg/dL High 65 - 99 mg/dL [facility] Interpretation and review of laboratory results Abnormal [facility] Potassium [Moles/Vol] 3.8 mmol/L 3.5 - 5.0 mmol/L [facility] Protein [Mass/Vol] 6.3 g/dL 6.0 - 8.0 g/dL [facility] Sodium [Moles/Vol] 130 mmol/L Low 134 - 146 mmol/L [facility] Urea nitrogen [Mass/Vol] 16 mg/dL 5 - 27 mg/dL [facility] FREE T4on 12-04-2023 Free T4 [Mass/Vol] 0.84 ng/dL Normal 0.61-1.60 [facility] Comment on above: Performed By: #### C BC, CMP, 56662-4, 2776-1, TSHR, 3024-7 #### [facility] ([id number]) [address] [place] [address] MAGNESIUMon 12-04-2023 Magnesium [Mass/Vol] 1.8 mg/dL Normal 1.8-2.6 [facility] Comment on above: Performed By: #### C BC, CMP, 17947-2, 2776-, TSHR, 3024-7 #### [facility] ([id number]) [address] [place] [address] Magnesiumon 12-04-2023 Magnesium [Mass/Vol] 1.8 mg/dL 1.8 - 2.6 mg/dL [facility] No Panel Informationon 12-03 [facility] PHOSPHORUSon 12-04-2023 Phosphate [Mass/Vol] 2.5 mg/dL Normal 2.4-4.9 [facility] Comment on above: Performed By: #### C BC, CMP, 41874-1, 2776-, TSHR, 3024-7 #### [facility] ([id number]) [address] [place] [address] Phosphoruson 12-04-2023 Phosphate [Mass/Vol] 2.5 mg/dL 2.4 - 4.9 mg/dL [facility] TSH WITH REFLEXon 12-04-2023 TSH 0.45 uIU/mL Low 0.49-4.67 [facility] Comment on above: Performed By: #### C BC, CMP, 85823-4, 2776-, TSHR, 3024-7 #### [facility] ([id number]) [address] [place] [address] TSH with Reflexon 12-04-2023 Interpretation and review [...] Wong MD on 12/04/2023 1:28 PM Normal [facility] XR Knee - right 1 or 2 Views on 12-04-2023 History: [facility] aftercare. Knee replacement. Pain Study: Right knee Two view study. Comparison: None Impression: Femoral and tibial components are excellent position. No evidence of periprosthetic fracture or acute complication. Skin fei are noted. Follow-up is planned. Excellent alignment. Finalized by Vidhi Wong MD on 12/04/2023 1:28 PM [facility] Vidhi Wong MD - 12/04/2023 History: [facility] aftercare. Knee replacement. Pain Study: Right knee Two view study. Comparison: None Impression: Femoral and tibial components are excellent position. No evidence of periprosthetic fracture or acute complication. Skin fei are noted. Follow-up is planned. Excellent alignment. Finalized by Vidhi Wong MD on 12/04/2023 1:28 PM [facility] Radiology Study observation (narrative) [facility] XR Knee - right 1 or 2 Views Ordered By: Vidhi Wong on 12-04-2023 [facility] Work Phone: BASIC METABOLIC PANLon 11-06 Anion gap [Moles/Vol] 10 mmol/L Normal 5-15 [facility] Comment on above: Performed By: #### C ORALIA, BMP #### [facility] ([id number]) [address] [place] [address] Calcium [Mass/Vol] 8.8 mg/dL Normal 8.5-10.5 [facility] Comment on above: Performed By: #### C BCA, BMP #### [facility] ([id number]) [address] [place] [address] Chloride [Moles/Vol] 99 mmol/L Normal 98-109 [facility] Comment on above: Performed By: #### C BCA, BMP #### [facility] ([id number]) [address] [place] [address] CO2 [Moles/Vol] 27 mmol/L Normal 22-32 [facility] Comment on above: Performed By: #### C ORALIA, BMP #### [facility] ([id number]) [address] [place] [address] Creatinine [Mass/Vol] 0.80 mg/dL Normal 0.60-1.30 [facility] Comment on above: Result Comment: METH OD TRACEABLE TO IDMS STANDARD Performed By: #### C ORALIA, BMP #### [facility] ([id number]) [address] [place] [address] eGFR (CKD-EPI) NON-RACE DEPENDENT >90 Normal >59 [facility] Comment on above: Result Comment: Reported eGFR is based on the CKD-EPI 2020 equation that does not use a race coefficient. Performed By: #### C ORALIA, BMP #### [facility] ([id number]) [address] [place] [address] Glucose [Mass/Vol] 89 mg/dL Normal 65-99 [facility] Comment on above: Performed By: #### C BCA, BMP #### [facility] ([id number]) [address], [address] [place] [address] Potassium [Moles/Vol] 4.2 mmol/L Normal 3.5-5.0 [facility] Comment on above: Performed By: #### C BCA, BMP #### [facility] ([id number]) [address], [address] [place] [address] Sodium [Moles/Vol] 136 mmol/L Normal 134-146 [facility] Comment on above: Performed By: #### C ORALIA, MINDY #### [facility] ([id number]) [address], [address] [place] [address] Urea nitrogen [Mass/Vol] 9 mg/dL Normal 5-27 [facility] Comment on above: Performed By: #### Casey BCA, BMP #### [facility] ([id number]) [address] [facility], [address] [place] [address] Basic Metabolic Panelon 10-19 Anion gap [Moles/Vol] 10 mmol/L 5 - 15 mmol/L [facility] [place] Calcium [Mass/Vol] 8.8 mg/dL 8.5 - 10. 5 mg/dL [facility] [place] Chloride [Moles/Vol] 99 mmol/L 98 - 109 mmol/L [facility] [place] CO2 [Moles/Vol] 27 mmol/L 22 - 32 mmol/L [facility] [place] Creatinine [Mass/Vol] 0.80 mg/dL 0.60 - 1.30 mg/dL [facility] [place] Comment on above: METHOD TRACEABLE TO IDMS STANDARD eGFR (CKD-EPI)non-race dependent - PINF [facility] [place] Comment on above: Reported eGFR is based on the CKD-EPI 2020 equation that does not use a race coefficient. Glucose [Mass/Vol] 89 mg/dL 65 - 99 mg/dL [facility] [place] Potassium [Moles/Vol] 4.2 mmol/L 3.5 - 5.0 mmol/L [facility] [place] Sodium [Moles/Vol] 136 mmol/L 134 - 146 mmol/L [facility] [place] Urea nitrogen [Mass/Vol] 9 mg/dL 5 - 27 mg/dL [facility] CBC AND AUTO DIFFon 11-07-19 ABSOLUTE BASOPHIL 0.1 X10E9/L Normal 0.0-0.2 [facility] Comment on above: Performed By: #### C ORALIA, BMP #### [facility] ([id number]) [address], [address] [place] [address] ABSOLUTE NEUTROPHIL 4.4 X10E9/L Normal 1.5-6.6 [facility] Comment on above: Performed By: #### C ORALIA, BMP #### [facility] ([id number]) [address] [place] [address] Basophils/100 WBC (Bld) 1.1 % Normal [facility] Comment on above: Performed By: #### C ORALIA, BMP #### [facility] ([id number]) [address] [address] [place] [address] Eosinophils (Bld) [#/Vol] 0.1 10*3/uL Normal 0.0-0.4 [facility] Comment on above: Performed By: #### C ORALIA, BMP #### [facility] ([id number]) [address] [address] [place] [address] Eosinophils/100 WBC (Bld) 1.0 % Normal [facility] Comment on above: Performed By: #### C ORALIA, BMP #### [facility] ([id number]) [address] [place] [address] Erythrocyte distribution width (RBC) [Ratio] 13.0 % Normal 11.5-15.0 [facility] Comment on above: Performed By: #### C ORALIA, BMP #### [facility] ([id number]) [address], [address] [place] [address] Hematocrit (Bld) [Volume fraction] 45.8 % Normal 39-49 [facility] Comment on above: Performed By: #### C ORALIA, BMP #### [facility] ([id number]) [address] [address] [place] [address] Hemoglobin (Bld) [Mass/Vol] 16.0 g/dL Normal 13.0-17.0 [facility] Comment on above: Performed By: #### C ORALIA, BMP #### [facility] ([id number]) [address], [address] [place] [address] Lymphocytes (Bld) [#/Vol] 1.2 10*3/uL Normal 1.0-3.5 [facility] Comment on above: Performed By: #### C ORALIA, BMP #### [facility] ([id number]) [address] [place] [address] Lymphocytes/100 WBC (Bld) 19.6 % Normal [facility] Comment on above: Performed By: #### C ORALIA, BMP #### [facility] ([id number]) [address] [place] [address] MCH (RBC) [Entitic mass] 32.2 pg Normal 27-34 [facility] Comment on above: Performed By: #### C ORALIA, BMP #### [facility] ([id number]) [address] [place] [address] MCHC (RBC) [Mass/Vol] 35.0 g/dL Normal 32-36 [facility] Comment on above: Performed By: #### C ORALIA, BMP #### [facility] ([id number]) [address] [place] [address] MCV (RBC) [Entitic vol] 92 fL Normal 80-100 [facility] Comment on above: Performed By: #### C ORALIA, BMP #### [facility] ([id number]) [address] [place] [address] Monocytes (Bld) [#/Vol] 0.6 10*3/uL Normal 0-0.9 [facility] Comment on above: Performed By: #### C ORALIA, BMP #### [facility] ([id number]) [address] [place] [address] Monocytes/100 WBC (Bld) 9.5 % Normal [facility] Comment on above: Performed By: #### Casey BARTON, BMP #### [facility] ([id number]) [address], [facility] [address] [place] [address] Neutrophils/100 WBC (Bld) 68.8 % Normal [facility] Comment on above: Performed By: #### Casey BARTON, BMP #### [facility] ([id number]) [address], [facility] [address] [place] [address] Platelet mean volume (Bld) [Entitic vol] 8.0 fL Normal 7-12 [facility] Comment on above: Performed By: #### Casey BARTON, BMP #### [facility] ([id number]) [address] [address] [place] [address] Platelets (Bld) [#/Vol] 256 10*3/uL Normal 150-450 [facility] Comment on above: Performed By: #### Casey BARTON, BMP #### [facility] ([id number]) [address], [facility] [address] [place] [address] RBC COUNT 4.98 X10E12/L Normal 4.10-5.70 [facility] Comment on above: Performed By: #### Casey BARTON, BMP #### [facility] ([id number]) [address] [address] [place] [address] WBC (Bld) [#/Vol] 6.4 10*3/uL Normal 4.0-11.0 [facility] Comment on above: Performed By: #### Casey BARTON, BMP #### [facility] ([id number]) [address] [address] [place] [address] CBC auto differentialon 10-19-2023 Basophils (Bld) [#/Vol] 0.1 10*3/uL [facility] Basophils/100 WBC (Bld) 1.1 % [facility] Eosinophils (Bld) [#/Vol] 0.1 10*3/uL [facility] Eosinophils/100 WBC (Bld) 1.0 % [facility] Erythrocyte distribution width (RBC) [Ratio] 13.0 % 11.5 - 15.0 % [facility] Hematocrit (Bld) [Volume fraction] 45.8 % 39 - 49 % [facility] Hemoglobin (Bld) [Mass/Vol] 16.0 g/dL 13.0 - 17.0 g/dL [facility] Lymphocytes (Bld) [#/Vol] 1.2 10*3/uL [facility] Lymphocytes/100 WBC (Bld) 19.6 % [facility] MCH (RBC) [Entitic mass] 32.2 pg 27 - 34 pg [facility] MCHC (RBC) [Mass/Vol] 35.0 g/dL 32 - 36 g/dL [facility] MCV (RBC) [Entitic vol] 92 fL 80 - 100 fL [facility] Monocytes (Bld) [#/Vol] 0.6 10*3/uL [facility] Monocytes/100 WBC (Bld) 9.5 % [facility] Neutrophils (Bld) [#/Vol] 4.4 10*3/uL [facility] Neutrophils/100 WBC (Bld) 68.8 % [facility] Platelet mean volume (Bld) [Entitic vol] 8.0 fL 7 - 12 fL [facility] Platelets (Bld) [#/Vol] 256 10*3/uL [facility] RBC (Bld) [#/Vol] 4.98 10*6/uL [facility] WBC corrected for nucl RBC Auto (Bld) [#/Vol] 6.4 [facility] XR CHEST 2 VWSon 11-07-2023 XR CHEST 2 VWS XR CHEST 2 VWS XR CHEST 2 VWS INDICATION: Preop examination; Coronary artery disease, unspecified vessel or lesion type, unspecified whether angina present, unspecified whether quechan or transplanted heart; Hypertension, unspecified type; History of myocardial infarction. Coronary artery disease. Chest pain. FINDINGS: Cardiac silhouette is normal in size. Trachea midline. No focal pulmonary consolidation. No pleural effusion. No pneumothorax. IMPRESSION: 1. No acute findings. Finalized by Nghia Tolbert MD on 11/07/2023 9:20 PM Normal [facility] XR Chest PA and Lateralon XR CHEST 2 VWS INDICATION: Preop examination; Coronary artery disease, unspecified vessel or lesion type, unspecified whether angina present, unspecified whether quechan or transplanted heart; Hypertension, unspecified type; History of myocardial infarction. Coronary artery disease. Chest pain. FINDINGS: Cardiac silhouette is normal in size. Trachea midline. No focal pulmonary consolidation. No pleural effusion. No pneumothorax. IMPRESSION: 1. No acute findings. Finalized by Nghia Tolbert MD on 11/07/2023 9:[address] [facility] Nghia Tolbert MD - 11/07/2023 XR CHEST 2 VWS INDICATION: Preop examination; Coronary artery disease, unspecified vessel or lesion type, unspecified whether angina present, unspecified whether quechan or transplanted heart; Hypertension, unspecified type; History of myocardial infarction. Coronary artery disease. Chest pain. FINDINGS: Cardiac silhouette is normal in size. Trachea midline. No focal pulmonary consolidation. No pleural effusion. No pneumothorax. IMPRESSION: 1. No acute findings. Finalized by Nghia Tolbert MD on 11/07/2023 9:20 PM [facility] [place] Radiology Study observation (narrative) [facility] XR Chest PA and LateralOrder ed By: Nghia Tolbert on 11-07-2023 [facility] Work Phone: CBC AUTO DIFFon 07-04-2022 BASO # 0.1 103/ul Normal 0.0-0.1 [facility] Comment on above: Performed By: #### C BC #### [facility] [address] [place] [address] [address] [address] Cami Bishop Basophils/100 WBC (Bld) 0.9 % Normal 0.2-2.0 [facility] Comment on above: Performed By: #### C BC #### [facility] [address] [place], [place] [address] Dr. Cami Bishop EO # 0.1 103/ul Normal 0.0-0.7 [facility] Comment on above: Performed By: #### C BC #### [facility] [address] [place] [address] Dr. Cami Bishop Eosinophils/100 WBC (Bld) 2.0 % Normal 0.9-7.0 [facility] Comment on above: Performed By: #### C BC #### [facility] [address] [place] [address] Dr. Cami Bishop Erythrocyte distribution width (RBC) [Ratio] 12.2 % Normal 11.0-15.0 [facility] Comment on above: Performed By: #### C BC #### [facility] [address] [place] [address] Dr. Cami Bishop Hematocrit (Bld) [Volume fraction] 45.3 % Normal 42.0-54.0 [facility] Comment on above: Performed By: #### C BC #### [facility] [address] [place] [address] Dr. Cami Bishop Hemoglobin (Bld) [Mass/Vol] 16.0 g/dL Normal 14.0-18.0 [facility] Comment on above: Performed By: #### C BC #### [facility] [address] [place] [address] Dr. Cami Bishop IG # 0.04 10e3/ul Critically high 0.00-0.03 [facility] Comment on above: Performed By: #### C BC #### [facility] [address] [place] [address] Dr. Cami Bishop IG % 0.7 % Critically high 0.0-0.5 [facility] Comment on above: Performed By: #### C BC #### [facility] [address] [place] [address] Dr. Cami Bishop LYMPH # 1.6 103/ul Normal 1.2-3.8 [facility] Comment on above: Performed By: #### C BC #### [facility] [address] [place] [address] Dr. Cami [employer] Lymphocytes/100 WBC (Bld) 28.6 % Normal 20.5-60.0 [facility] Comment on above: Performed By: #### C BC #### [facility] [address] [place] [address] Dr. Cami Bishop MANUAL DIFF REQ NO Normal [facility] Comment on above: Performed By: #### C BC #### [facility] [address] [place] [address] Dr. Cami Bishop MCH (RBC) [Entitic mass] 31.2 pg Normal 25.9-34.0 [facility] Comment on above: Performed By: #### C BC #### [facility] [address] [place] [address] Dr. Cami Bishop MCHC (RBC) [Mass/Vol] 35.3 g/dL Critically high 29.9-35.2 [facility] Comment on above: Performed By: #### C BC #### [facility] [address] [place] [address] Dr. Cami Bishop MCV (RBC) [Entitic vol] 88.3 fL Normal 80.0-94.0 [facility] Comment on above: Performed By: #### C BC #### [facility] [address] [place] [address] Dr. Cami Bishop MONO # 0.6 103/ul Normal 0.3-0.8 [facility] Comment on above: Performed By: #### C BC #### [facility] [address] [place] [address] Dr. Cami Bishop Monocytes/100 WBC (Bld) 11.2 % Normal 1.7-12.0 [facility] Comment on above: Performed By: #### C BC #### [facility] [address] [place] [address] Dr. Cami Bishop NEUT # 3.2 103/ul Normal 1.4-6.5 [facility] Comment on above: Performed By: #### C BC #### [facility] [address] [place] [address] Dr. Cami Bishop Neutrophils/100 WBC (Bld) 56.6 % Normal 43.0-75.0 [facility] Comment on above: Performed By: #### C BC #### [facility] [address] [place] [address] Dr. Cami Bishop Platelet mean volume (Bld) [Entitic vol] 9.6 fL Normal 9.5-13.5 [facility] Comment on above: Performed By: #### C BC #### [facility] [address] [place] [address] Dr. Cami Bishop PLT 229 103/ul Normal 150-450 [facility] Comment on above: Performed By: #### C BC #### [facility] [address] [place] [address] Dr. Cami Bishop RBC 5.13 106/ul Normal 4.70-6.10 [facility] Comment on above: Performed By: #### C BC #### [facility] [address] [place] [address] Dr. Cami Bishop WBC 5.6 103/ul Normal 4.0-11.0 [facility] Comment on above: Performed By: #### C BC #### [facility] [address] [place] [address] Dr. Cami Bishop FREE T3on 07-04-2022 FREE T3 2.50 pg/mlL Normal 2.18-3.98 [facility] Comment on above: Performed By: #### T SH, LIPID, FT3, T4, CMP #### [facility] [address] [place] [address] Dr. Cami Bishop GLYCOHEMOGLOBIN A1Con 2022 ADA RECOMMENDATION SEE BELOW Normal [facility] Comment on above: Result Comment: ADA RECOMMENDED LIMIT 4.0 - 6.0 ADA THERAPEUTIC TARGET < 7.0 ACTION SUGGESTED > 7.0 Performed By: #### A 1C #### [facility] [address] [place] [address] Dr. Cami Bishop Glucose [Mass/Vol] 105 mg/dL Normal [facility] Comment on above: Performed By: #### A 1C #### [facility] [address] [place] [address] Dr. Cami Bishop HbA1c (Bld) [Mass fraction] 5.3 % Normal 4.5-6.2 [facility] Comment on above: Performed By: #### A 1C #### [facility] [address] [place] [address] Dr. Cami Bishop LIPID PROFILEon 07-04-2022 CHOL-HDL RATIO NORM SEE BELOW Normal [facility] Comment on above: Result Comment: 3.3 - 4.4 LOW RISK 4.4 - 7.1 AVERAGE RISK 7.1 - 11.0 MODERATE RISK >11.0 HIGH RISK Performed By: #### T SH, LIPID, FT3, T4, CMP #### [facility] [address] [place] [address] Dr. Cami Bishop Cholesterol [Mass/Vol] 123 mg/dL Normal <=200 [facility] Comment on above: Performed By: #### T SH, LIPID, FT3, T4, CMP #### [facility] [address] [place] [address] Dr. Cami Bishop Cholesterol in HDL [Mass/Vol] 39 mg/dL Critically low 40-60 [facility] Comment on above: Performed By: #### T SH, LIPID, FT3, T4, CMP #### [facility] [address] [place] [address] Dr. Cami Bishop Cholesterol in LDL [Mass/Vol] 55.6 mg/dL Normal [facility] Comment on above: Performed By: #### T SH, LIPID, FT3, T4, CMP #### [facility] [address] [place] [address] Dr. Cami Bishop Cholesterol.total/ Cholesterol in HDL [Mass ratio] 3.2 {ratio} Normal [facility] Comment on above: Performed By: #### T SH, LIPID, FT3, T4, CMP #### [facility] [address] [place] [address] Dr. Cami Bishop HDL NORMAL > or = 60 mg/dl - LO W CARDIOVASCULAR RISK <40 mg/dl - HIGH CARDIOVASCULAR RISK Normal [facility] Comment on above: Performed By: #### T SH, LIPID, FT3, T4, CMP #### [facility] [address] [place] [address] [address] Cami Bishop LDL CALC NORMAL SEE BELOW Normal [facility] Comment on above: Result Comment: <100 mg/dl OPTIMAL 100 - 129 mg/dl NEAR OR ABOVE OPTIMAL 130 - 159 mg/dl BORDERLINE HIGH 160 - 189 mg/dl HIGH >190 mg/dl VERY HIGH Performed By: #### T SH, LIPID, FT3, T4, CMP #### [facility] [address] [place] [address] [address] Cami Bishop Triglyceride [Mass/Vol] 142 mg/dL Normal <=150 [facility] Comment on above: Performed By: #### T SH, LIPID, FT3, T4, CMP #### [facility] [address] [address] [address] Cami Bishop VLDL CALC 28.4 mg/dL Normal [facility] Comment on above: Performed By: #### T SH, LIPID, FT3, T4, CMP #### [facility] [address] [place] [address] Dr. Cami Bishop PROF 14(COMP METB)on 023 Albumin [Mass/Vol] 3.8 g/dL Normal 3.4-5.0 [facility] Comment on above: Performed By: #### T SH, LIPID, FT3, T4, CMP #### [facility] [address] [place] [address] Dr. Cami Bishop Albumin/Globulin [Mass ratio] 1.3 {ratio} Normal [facility] Comment on above: Performed By: #### T SH, LIPID, FT3, T4, CMP #### [facility] [address] [place] [address] Dr. Cami Bishop ALP [Catalytic activity/Vol] 44 U/L Critically low 46-116 [facility] Comment on above: Performed By: #### T SH, LIPID, FT3, T4, CMP #### [facility] [address] [place] [address] Dr. Cami Bishop ALT [Catalytic activity/Vol] 36 U/L Normal 16-63 [facility] Comment on above: Performed By: #### T SH, LIPID, FT3, T4, CMP #### [facility] [address] [place] [address] Dr. Cami Bishop Anion gap [Moles/Vol] 9.3 mmol/L Normal [facility] Comment on above: Performed By: #### T SH, LIPID, FT3, T4, CMP #### [facility] [address] [place] [address] Dr. Cami Bishop AST [Catalytic activity/Vol] 22 U/L Normal 15-37 [facility] Comment on above: Performed By: #### T SH, LIPID, FT3, T4, CMP #### [facility] [address] [place] [address] Dr. Cami Bishop Bilirubin [Mass/Vol] 1.4 mg/dL Critically high 0.2-1.0 [facility] Comment on above: Performed By: #### T SH, LIPID, FT3, T4, CMP #### [facility] [address] [place] [address] Dr. Cami Bishop Calcium [Mass/Vol] 8.9 mg/dL Normal 8.5-10.1 [facility] Comment on above: Performed By: #### T SH, LIPID, FT3, T4, CMP #### [facility] [address] [place] [address] Dr. Cami Bishop Chloride [Moles/Vol] 98 mmol/L Normal 98-107 [facility] Comment on above: Performed By: #### T SH, LIPID, FT3, T4, CMP #### [facility] [address] [place] [address] Dr. Cami Bishop CO2 [Moles/Vol] 32.7 mmol/L Critically high 21.0-32.0 [facility] Comment on above: Performed By: #### T SH, LIPID, FT3, T4, CMP #### [facility] [address] [place] [address] Dr. Cami Bishpo Creatinine [Mass/Vol] 0.95 mg/dL Normal 0.70-1.30 [facility] Comment on above: Performed By: #### T SH, LIPID, FT3, T4, CMP #### [facility] [address] [address] [address] Cami Bishop EGFR-AF QATARI >60 Normal >=60 [facility] Comment on above: Performed By: #### T SH, LIPID, FT3, T4, CMP #### [facility] [address] [address] [address] Cami Bishop EGFR-NON AF QATARI >60 Normal >=60 [facility] Comment on above: Performed By: #### T SH, LIPID, FT3, T4, CMP #### [facility] [address] [address] [address] Cami Bishop Globulin (S) [Mass/Vol] 2.9 g/dL Normal [facility] Comment on above: Performed By: #### T SH, LIPID, FT3, T4, CMP #### [facility] [address] [place] [address] Dr. Cami Bishop Glucose [Mass/Vol] 102 mg/dL Normal 74-106 [facility] Comment on above: Performed By: #### T SH, LIPID, FT3, T4, CMP #### [facility] [address] [address] [address] Cami Bishop Potassium [Moles/Vol] 4.0 mmol/L Normal 3.5-5.1 [facility] Comment on above: Performed By: #### T SH, LIPID, FT3, T4, CMP #### [facility] [address] [place] [address] Dr. Cami Bishop Protein [Mass/Vol] 6.7 g/dL Normal 6.4-8.2 [facility] Comment on above: Performed By: #### T SH, LIPID, FT3, T4, CMP #### [facility] [address] [place] [address] Dr. Cami Bishop Sodium [Moles/Vol] 136 mmol/L Normal 136-145 [facility] Comment on above: Performed By: #### T SH, LIPID, FT3, T4, CMP #### [facility] [address] [place] [address] Dr. Cami Bishop Urea nitrogen [Mass/Vol] 14.0 mg/dL Normal 7.0-18.0 [facility] Comment on above: Performed By: #### T SH, LIPID, FT3, T4, CMP #### [facility] [address] [place] [address] Dr. Cami Bishop Urea nitrogen/Creatinin e [Mass ratio] 14.7 mg/mg Normal [facility] Comment on above: Performed By: #### T SH, LIPID, FT3, T4, CMP #### [facility] [address] [place] [address] Dr. Cami Bishop T4on 07-04-2022 T4 [Mass/Vol] 6.80 ug/dL Normal 4.50-12.10 [facility] Comment on above: Performed By: #### T SH, LIPID, FT3, T4, CMP #### [facility] [address] [place] [address] Dr. Cami Bishop TSHon 07-04-2022 TSH 2.193 uIU/mL Normal 0.358-3.740 [facility] Comment on above: Performed By: #### T SH, LIPID, FT3, T4, CMP #### [facility] [address] [place] [address] Dr. Cami Bishop VITAMIN D 25 OHon 07-04-2022 VIT D 25-OH 35.1 ng/mL Normal [facility] Comment on above: Performed By: #### V ROSELINE PSASC #### [facility] [address] [place] [address] Dr. Cami Bishop VIT D RANGES SEE BELOW Normal [facility] Comment on above: Result Comment: <20 ng/mL Vit D deficient 20 - <30 ng/mL Vit D insufficient 30 - 100 ng/mL Vit D sufficient >100 ng/mL Potential Toxicity Performed By: #### V ROSELINE, PSASC #### [facility] [address] [place] [address] Dr. Cami Bishop ER URINE PROFILEon Bilirubin Ql (U) Negative Normal NEGATIVE [facility] Comment on above: Performed By: #### T SH, LIPID, FT3, T4, CMP #### [facility] [address] [address] [address] Cami Bishop Clarity (U) CLEAR Normal CLEAR [facility] Comment on above: Performed By: #### T SH, LIPID, FT3, T4, CMP #### [facility] [address] [address] [address] Cami Bishop Color (U) YELLOW Normal YELLOW [facility] Comment on above: Performed By: #### T SH, LIPID, FT3, T4, CMP #### [facility] [address] [address] [address] Cami REID A micrscopic examination will be performed if indicated. Normal [facility] Comment on above: Performed By: #### T SH, LIPID, FT3, T4, CMP #### [facility] [address] [place] [address] Dr. Cami Bishop Glucose Ql (U) Negative Normal NEGATIVE [facility] Comment on above: Performed By: #### T SH, LIPID, FT3, T4, CMP #### [facility] [address] [place] [address] Dr. Cami Bishop Hemoglobin Ql (U) Negative Normal NEGATIVE [facility] Comment on above: Performed By: #### T SH, LIPID, FT3, T4, CMP #### [facility] [address] [place] [address] Dr. Cami Bishop Ketones Ql (U) Negative Normal NEGATIVE [facility] Comment on above: Performed By: #### T SH, LIPID, FT3, T4, CMP #### [facility] [address] [address] [address] Cami Bishop LEUKOCYTES Negative Normal NEGATIVE [facility] Comment on above: Performed By: #### T SH, LIPID, FT3, T4, CMP #### [facility] [address] [place] [address] Dr. Cami Bishop Nitrite Ql (U) Negative Normal NEGATIVE [facility] Comment on above: Performed By: #### T SH, LIPID, FT3, T4, CMP #### [facility] [address] [address] [address] Cami Bishop pH (U) 6.0 [pH] Normal 5-9 [facility] Comment on above: Performed By: #### T SH, LIPID, FT3, T4, CMP #### [facility] [address] [address] [address] Cami Bishop SPEC GRAVITY 1.020 Normal 1.005-<=1.02 5 [facility] Comment on above: Performed By: #### T SH, LIPID, FT3, T4, CMP #### [facility] [address] [address] [address] Cami Bishop UA PROTEIN Negative Normal NEGATIVE/ TRACE [facility] Comment on above: Performed By: #### T SH, LIPID, FT3, T4, CMP #### [facility] [address] [address] [address] Cami Bishop UR MICRO IND NOT INDICATED Normal [facility] Comment on above: Performed By: #### T SH, LIPID, FT3, T4, CMP #### [facility] [address] [address] [address] Cami Bishop Urobilinogen Qn (U) 1.0 {Dia'U}/dL Normal 0.2 - 1.0 [facility] Comment on above: Performed By: #### T SH, LIPID, FT3, T4, CMP #### [facility] [address] [address] [address] Cami Bishop XR LSPINE 2_3 VIEWSon [...] DAMIR MACHADO Date: 2022-01-11 13:56 Normal [facility] Cardiovascular Lab Reporton 03-06-2018 Cardiovascular Lab Report [facility] [place] [facility] MR #: [id number] of Physician: Sheyrl Stratton M.D.Division of Service Date: 03/05/2018Cardiology Birthdate: [birth year]Adult Cardiovascular Room #: [id number] [place], [place] [address]Ixdlo Fax Cardiovascular Laboratory ReportFINAL IMPRESSIONS:1. Severe stenosis of the left anterior descending coronary artery, successfully treated by balloon angioplasty and Synergy drug-eluting stent placement.2. Severe stenosis of the posterior descending artery, successfully treated by balloon angioplasty and Synergy drug-eluting stent placement.3. Moderate angiographic, non-hemodynamically significant stenosis of the right coronary artery as assessed by instantaneous wave-free ratio (iFR).4. Ngfy-ly-bjsbvjkh in-stent restenosis of the mid left anterior [...] rehabilitation.5. Follow up with me in the [facility] in the next 2 to 4 weeks.6. [...] the left radial arteryunder ultrasound guidance. A 6-Andorran Glidesheath was inserted withoutdifficulty. Coronary angiography was performed using JR4 and [id number]. After reviewing the images, it was elected to proceed with aninterventional procedure.A 6-Andorran XB3.5 guide catheter was advanced over J-wire and coaxiallyengaged into the left main coronary ostium. The Mesa pressure wire wasadvanced through the catheter with [...] wire trauma. The XB guide catheter wasremoved.A 6-Andorran JR4 guide catheter was advanced over the J-wire and coaxiallyengaged into the right coronary ostium. A new Mesa pressure wire wasadvanced through the catheter with [...] be transferred to the holding area in stablecondition.FINDFL GS:Hemodynamics:RA 13.RV 36/9, 15.PA 36/13 (25).PCWP 15.TPG [...] restenosis. Distal to a small adjacent diagonal, iivurq-wa-tvivmg left anterior descending shows a short segment [...] 03/05/2018/01:31 P/Moraima Espitia M.D.Date Trans: 03/06/2018 12:18 P/[id number] 991cc: Romel Franco M.D. [address] [facility] [address] [place] [facility] Vital Signs Date Time Vital Sign Value Performing Clinician Luis brumfield 12-06-2023 16:54-0400 Body temperature 98.6 [degF] [facility] 12-06-2023 16:54-0400 Diastolic blood pressure 74 mm[Hg] Dakota Manyn [employer] Work Phone: [facility] 12-06-2023 16:54-0400 Heart rate 85 /min Dakota Manny [employer] Work Phone: [facility] 12-06-2023 16:54-0400 Respiratory rate 16 /min Dakota [place] [employer] Work Phone: [facility] 12-06-2023 16:54-0400 SaO2% (BldA) [Mass fraction] 97 % Dakota Bryant DO [facility] 12-06-2023 16:54-0400 Systolic blood pressure 148 mm[Hg] Dakota Bryant DO Work Phone[facility] 12-04-2023 09:05-0400 Body height 179.1 cm Dakota Bryant DO Work Phone[facility] 12-04-2023 09:05-0400 Body mass index (BMI) [Ratio] 39.89 kg/m2 Dakota Bryant DO Work Phone[facility] 12-04-2023 09:05-0400 Body weight 127.91 kg Dakota Bryant DO Work Phone[facility] 11-07-2023 15:08-0400 Body height 179.1 cm [facility] 2 [facility] 11-07-2023 15:08-0400 Body mass index (BMI) [Ratio] 39.89 kg/m2 Pm 2 [facility] 11-07-2023 15:08-0400 Body weight 127.91 kg [facility] Encounter Date Encounter Type Care Provider Facility Start: 03-03-2025 ambulatory Óscar FIELD Facili ty:[facility] Start: 02-04-2025 ambulatory Óscar FIELD Facili ty:[id number] Start: 01-27-2025 End: 01-27-2025 ambulatory [facility] Start: 01-20-2025 End: 01-20-2025 ambulatory Óscar FIELD Facility:AYAAN Rodriguez Start: 12-31-2024 ambulatory Óscar FIELD Facility :[facility] Start: 11-25-2024 End: 11-25-2024 Bamboo flowsjoanne Paige NATURAL GAS TRADER Work Phone: [facility] Start: 11-25-2024 End: 11-25-2024 Bamboo flowsheet Mely Paige NATURAL GAS TRADER Work Phone: [facility] Start: 11-25-2024 End: 11-25-2024 Office outpatient visit 15 minutes Mely Paige NATURAL GAS TRADER Work Phone: [facility] Comment on above: Primary osteoarthrit is of right knee; Status post right knee replacement Start: 11-25-2024 End: 11-25-2024 ambulatory MELY PAIGE Not Available Start: 05-27-2024 End: 05-27-2024 Office outpatient visit 10 minutes eMly Paige NATURAL GAS TRADER Work Phone: [facility] Comment on above: Status post right kn ee replacement; Primary osteoarthritis of right knee Start: 05-27-2024 End: 05-27-2024 ambulatory MELY PAIGE Not Available Start: 05-27-2024 End: 05-27-2024 Bamboo flowsheet Mely Paige NATURAL GAS TRADER Work Phone: [facility] Start: 05-27-2024 End: 05-27-2024 Bamboo flowsheet Mely Paige NATURAL GAS TRADER Work Phone: [facility] Start: 05-06-2024 End: 05-06-2024 ambulatory [facility] Start: 02-25-2024 End: 02-25-2024 Bamboo flowsheet Dakota Bryant DO Work Phone: [facility] Start: 02-25-2024 End: 02-25-2024 Bamboo flowsheet Dakota Bryant DO Work Phone: [facility] Start: 02-25-2024 End: 02-25-2024 Postop follow up visit related to original px Dakota Bryant DO Work Phone: [facility] Comment on above: Status post right kn ee replacement; Primary osteoarthritis of right knee Start: 02-25-2024 End: 02-25-2024 ambulatory DAKOTA BRYANT Not Available Start: 02-18-2024 End: 02-18-2024 Bamboo flowsheet Jona Asher PT [facility] Start: 02-18-2024 End: 02-18-2024 Bamboo flowsheet Jona Asher PT [facility] Start: 02-18-2024 End: 02-18-2024 ambulatory Jona Homerville PT [facility] Comment on above: Postoperative pain o f right knee (Primary Dx); Presence of artificial knee joint, right Start: 02-13-2024 End: 02-13-2024 Bamboo flowsheet Jona Homerville PT [facility] Start: 02-13-2024 End: 02-13-2024 Bamboo flowsheet Jona Homerville PT [facility] Start: 02-13-2024 End: 02-13-2024 ambulatory Jona Homerville PT [facility] Comment on above: Postoperative pain o f right knee (Primary Dx); Presence of artificial knee joint, right Start: 02-11-2024 End: 02-11-2024 Bamboo flowsheet Jona Homerville PT [facility] Start: 02-11-2024 End: 02-11-2024 Bamboo flowsheet Jona Homerville PT [facility] Start: 02-11-2024 End: 02-11-2024 ambulatory Jona Homerville PT [facility] Comment on above: Postoperative pain o f right knee (Primary Dx); Presence of artificial knee joint, right Start: 02-04-2024 End: 02-04-2024 Bamboo flowsheet Adriana Maureen STORE FACILITY TECHNICIAN [facility] Start: 02-04-2024 End: 02-04-2024 Bamboo flowsheet Adriana Maureen STORE FACILITY TECHNICIAN [facility] Start: 02-04-2024 End: 02-04-2024 ambulatory Adriana Maureen STORE FACILITY TECHNICIAN [facility] Comment on above: Postoperative pain o f right knee (Primary Dx); Presence of artificial knee joint, right Start: 01-30-2024 End: 01-30-2024 Bamboo flowsheet Jona Asher PT [facility] Start: 01-30-2024 End: 01-30-2024 Bamboo flowsheet Jona Asher PT [facility] Start: 01-30-2024 End: 01-30-2024 ambulatory Jona Homerville PT [facility] Comment on above: Postoperative pain o f right knee (Primary Dx); Presence of artificial knee joint, right Start: 01-28-2024 End: 01-28-2024 Bamboo flowsheet Adriana Maureen STORE FACILITY TECHNICIAN [facility] Start: 01-28-2024 End: 01-28-2024 Bamboo flowsheet Adriana Maureen STORE FACILITY TECHNICIAN [facility] Start: 01-28-2024 End: 01-28-2024 ambulatory Adriana Maureen STORE FACILITY TECHNICIAN [facility] Comment on above: Postoperative pain o f right knee (Primary Dx); Presence of artificial knee joint, right Start: 01-23-2024 End: 01-23-2024 Bamboo flowsheet Jona Homerville PT [facility] Start: 01-23-2024 End: 01-23-2024 Bamboo flowsheet Jona Asher PT [facility] Start: 01-23-2024 End: 01-23-2024 ambulatory Jona Homerville PT [facility] Comment on above: Postoperative pain o f right knee (Primary Dx); Presence of artificial knee joint, right Start: 01-21-2024 End: 01-21-2024 Bamboo flowsheet Adriana Maureen STORE FACILITY TECHNICIAN [facility] Start: 01-21-2024 End: 01-21-2024 Bamboo flowsheet Adriana Maureen STORE FACILITY TECHNICIAN [facility] Start: 01-21-2024 End: 01-21-2024 ambulatory Adriana Maureen STORE FACILITY TECHNICIAN [facility] Comment on above: Postoperative pain o f right knee (Primary Dx); Presence of artificial knee joint, right Start: 01-16-2024 End: 01-16-2024 Bamboo flowsheet Jona Asher PT [facility] Start: 01-16-2024 End: 01-16-2024 Bamboo flowsheet Jona Asher PT [facility] Start: 01-16-2024 End: 01-16-2024 ambulatory Jona Homerville PT [facility] Comment on above: Postoperative pain o f right knee (Primary Dx); Presence of artificial knee joint, right Start: 01-14-2024 End: 01-14-2024 Bamboo flowsheet Dakota Bryant DO Work Phone: [facility] Start: 01-14-2024 End: 01-14-2024 Bamboo flowsheet Dakota Yepezdleston DO Work Phone: [facility] Start: 01-14-2024 End: 01-14-2024 ambulatory Adriana Maureen STORE FACILITY TECHNICIAN [facility] Comment on above: Postoperative pain o f right knee (Primary Dx); Presence of artificial knee joint, right Start: 01-14-2024 End: 01-14-2024 Postop follow up visit related to original px Dakota Lemusston DO Work Phone: [facility] Comment on above: Primary osteoarthrit is of right knee; Status post right knee replacement Start: 01-09-2024 End: 01-09-2024 ambulatory Jona Homerville PT [facility] Comment on above: Postoperative pain o f right knee (Primary Dx); Presence of artificial knee joint, right Start: 01-09-2024 End: 01-09-2024 Bamboo flowsheet Jona Asher PT [facility] Start: 01-09-2024 End: 01-09-2024 Bamboo flowsheet Jona Asher PT [facility] Start: 01-07-2024 End: 01-07-2024 ambulatory Adriana Maureen STORE FACILITY TECHNICIAN [facility] Comment on above: Postoperative pain o f right knee (Primary Dx); Presence of artificial knee joint, right Start: 01-07-2024 End: 01-07-2024 Bamboo flowsheet Adriana Maureen STORE FACILITY TECHNICIAN [facility] Start: 01-07-2024 End: 01-07-2024 Bamboo flowsheet Adriana Maureen STORE FACILITY TECHNICIAN [facility] Start: 01-02-2024 End: 01-02-2024 ambulatory JONA ASHER Not Available Start: 12-31-2023 End: 12-31-2023 ambulatory JONA ASHER Not Available Start: 12-17-2023 End: 12-17-2023 ambulatory DAKOTA BRYANT Not Available Start: 12-09-2023 End: 12-09-2023 ambulatory BAKARI HUITRON Not Available Start: 12-04-2023 End: 12-06-2023 ambulatory [facility] Start: 12-04-2023 End: 12-06-2023 Subsequent hospital visit by physician Dakota Yepezdleston DO Work Phone: [facility] Comment on above: Status post total kn ee replacement, right (Primary Dx) Start: 11-26-2023 End: 11-26-2023 ambulatory [facility] Start: 11-07-2023 End: 11-07-2023 Patient encounter procedure [facility] Pre-Admission Testing 2 [facility] - Pre Admit Comment on above: Preop examination (P rimary Dx); Coronary artery disease, unspecified vessel or lesion type, unspecified whether angina present, unspecified whether quechan or transplanted heart; Hypertension, unspecified type; History of myocardial infarction Start: 11-07-2023 End: 11-07-2023 Preprocedural examination done [address] Start: 11-07-2023 End: 11-07-2023 ambulatory [facility] Start: 11-07-2023 Encounter for other preprocedural examination [facility] Start: 11-07-2023 End: 11-08-2023 ambulatory [facility] Start: 04-22-2023 End: 04-23-2023 ambulatory Navdeep Porter MD Facility: [facility] Start: 07-04-2022 End: 07-05-[address] ROMEL FRANCO . Facility: Start: 01-11-2022 End: 01-11-[address] ROMEL FRANCO . Facility: Start: 04-07-2018 End: 04-08-2018 Patient encounter procedure DEFAULT PHYSICIAN Facility:[facility] Start: 03-05-2018 End: 03-06-2018 Patient encounter procedure MORAIMA ESPITIA Facility:[facility] Procedures Date Procedure Procedure Detail Performing Clinician Start: 11-25-2024 Radiologic examinati on knee 1/2 views Mely Paige NATURAL GAS TRADER Work Phone: Start: 05-27-2024 Radiologic examinati on knee 1/2 views Mely Paige NATURAL GAS TRADER Work Phone: Start: 01-14-2024 Radiologic examinati on knee 1/2 views Dakota Bryant DO Work Phone: Start: 12-06-2023 Ct thorax w/contrast material Dg Ge CERTIFIED FINANCIAL PLANNER[employer]UMENTS INSPECTOR Work Phone: Start: 12-06-2023 Comprehensive metabo lic panel Yanelisnathan Hitchcock CERTIFIED FINANCIAL PLANNER-[employer]RETTED INSTRUMENTS INSPECTOR Work Phone: Start: 12-05-2023 Sodium serum plasma or whole blood Dg D Patricksunitha CERTIFIED FINANCIAL PLANNER-[employer]RETTED INSTRUMENTS INSPECTOR Work Phone: Start: 12-05-2023 Urnls dip stick/tabl et rgnt auto w/o microscopy Dg Ge CERTIFIED FINANCIAL PLANNER-[employer]RETTED INSTRUMENTS INSPECTOR Work Phone: Start: 12-05-2023 Radiologic exam ches t 2 views Dg Ge CERTIFIED FINANCIAL PLANNER-[employer]RETTED INSTRUMENTS INSPECTOR Work Phone: Start: 12-05-2023 Comprehensive metabo lic panel Yanelis Lissette Nadlo CERTIFIED FINANCIAL PLANNER-[employer]RETTED INSTRUMENTS INSPECTOR Work Phone: Start: 12-04-2023 Comprehensive metabo lic panel Yanelis Hitchcock 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 Cami Bishop Start: 03-05-2018 R HRT CORONARY ARTERY [facility] Plan of Treatment Date Care Activity Detail Author Start: 12-01-2025 End: 12-01-2025 Patient encounter procedure 12/01/2025 1:00 PM EDT Office Visit [facility] [address] [place] [address] Mely Paige, NATURAL GAS TRADER [address] [place] [address] [facility] Start: 01-18-2025 Influenza vaccination Influenza Vacc ine (#1) [facility] Start: 11-25-2024 End: 11-25-2024 Patient encounter procedure [facility] Comment on above: Primary osteoarthrit is of right knee; Status post right knee replacement Start: 11-06-2024 Adult BMI Screening Adult BMI Screen [facility] Start: 11-06-2024 Tobacco Screening Tobacco Screening [facility] [place] Start: 05-27-2024 End: 05-27-2024 Patient encounter procedure 05/27/2024 2:45 PM EST Office Visit [facility] [address] [facility] [address] [place] [address] Mely Paige, NATURAL GAS TRADER [address] [place] [address] Status post right knee replacement; Primary osteoarthritis of right knee [facility] Comment on above: Status post right kn ee replacement; Primary osteoarthritis of right knee Start: 05-26-2024 End: 05-26-2024 Patient encounter procedure 05/26/2024 11:00 AM EST Office [facility] [address] [facility] [address] [place] [id number] Mely Paige, NATURAL GAS TRADER [address] [place] [address] [facility] Start: 03-24-2024 End: 03-24-2024 Patient encounter procedure 03/24/2024 10:45 AM EST Office Visit [facility] [address] [place] [address] Dakota Bryant DO [address] [place] [address] [facility] Start: 02-25-2024 End: 02-25-2024 Patient encounter procedure [facility] Comment on above: Status post right kn ee replacement; Primary osteoarthritis of right knee Start: 02-18-2024 End: 02-18-2024 ambulatory 02/18/2024 11:00 AM EDT Treatment [facility] [address] [place] [address] Jona Sterling, PT [facility] Start: 02-13-2024 End: 02-13-2024 ambulatory 02/13/2024 12:30 PM EDT Treatment [facility] [address] [place] [address] Jona Sterling, PT [facility] Start: 02-11-2024 End: 02-11-2024 ambulatory [facility] Comment on above: Arrived Start: 02-06-2024 End: 02-06-2024 ambulatory 02/06/2024 2:00 PM EDT Treatment [facility] [address] [place] [address] Adriana Reddy, STORE FACILITY TECHNICIAN [facility] Start: 02-04-2024 End: 02-04-2024 [...] [address] [place] [address] Adriana Reddy, STORE FACILITY TECHNICIAN [facility] Start: 01-14-2024 End: 01-14-2024 Patient encounter procedure 01/14/2024 10:30 AM EDT Office Visit [facility] [address] [place] [address] Dakota Bryant, [address] [place] [address] [facility] Start: 01-09-2024 End: 01-09-2024 ambulatory 01/09/2024 5:00 PM EDT Treatment [facility] [address] [place] [address] Jona Sterling, PT [facility] Start: 01-07-2024 End: 01-07-2024 ambulatory 01/07/2024 2:30 PM EDT Treatment [facility] [address] [place] [address] Adriana Redyd, DARYL Arrived [facility] Comment on above: Arrived Start: 12-04-2023 End: 12-04-2023 Admission to same day surgery center 12/04/2023 10:15 AM EDT - 12/04/2023 12:45 PM EDT Surgery [facility] - Surgery [address] [place] [address] Dakota Bryant, DO [address] [place] [address] REPLACEMENT TOTAL JOINT KNEE [17103 (CPT )] [facility] Comment on above: REPLACEMENT TOTAL CHEN INT KNEE [32640 (CPT )] Start: 12-04-2023 End: 12-04-2023 Arthrp kne condyle&platu medial&lat compartments REPLACEMENT TOTAL JOINT KNEE right knee degenerative joint disease 12/04/2023 10:15 AM EDT [facility] Start: 12-04-2023 Subsequent hospital visit by physician 12/04/2023 10:15 AM EDT Hospital Encounter [facility] [address] [place] [address] Dakota Bryant, DO [address] [place] [address] [facility] Start: 11-25-2023 End: 10-17-2024 Crossmatch RBC Crossmatch RBC Blood Bank Routine Preop examination Coronary artery disease, unspecified vessel or lesion type, unspecified whether angina present, unspecified whether quechan or transplanted heart Hypertension, unspecified type History of myocardial infarction Expected: 11/25/2023, Expires: 10/17/2024 [facility] [place] Comment on above: Expected: 11/25/2023 , Expires: 10/17/2024 Start: 11-25-2023 End: 10-17-2024 Type and screen(includes indirect naya) Type and screen(includes indirect naya) Blood Bank Routine Preop examination Coronary artery disease, unspecified vessel or lesion type, unspecified whether angina present, unspecified whether quechan or transplanted heart Hypertension, unspecified type History of myocardial infarction Expected: 11/25/2023, Expires: 10/17/2024 [employer] Work Phone: Comment on above: Expected: 11/25/2023 , Expires: 10/17/2024 Start: 09-08-2023 COVID-19 Vaccine ( season) COVID-19 [facility]ine ( season) [facility] Start: 2011 Fall Risk Screening Fall Risk Screen ing [facility] Start: 2011 Pneumococcal Vaccine : 65+ Years (1 of 1 - PCV) Pneumococcal Vaccine: 65+ Years (1 of 1 - PCV) [facility] Start: 1996 Administration of varicella zoster vaccine Zoster (Shingles) Vaccine (1 of 2) [facility] Start: 1996 Pneumococcal Vaccine : 65+ Years (1 of 1 - PCV) Pneumococcal Vaccine: 65+ Years (1 of 1 - PCV) [facility] Start: 1965 DTaP,Tdap and Td Vaccines (1 - Tdap) DTaP,Tdap and Td Vaccines (1 - Tdap) [facility] Start: 1964 Adult BMI Follow Up Plan Adult BMI Follow Up Plan [facility] Start: 1958 Depression Screening Depression Scre ening [facility] Start: 1946 Medicare Annual Well ness Visit Medicare Annual Wellness Visit [facility] CBC panel - Blood by Automated count CBC without diff Lab Routine Lab max of 3 days, Daily, for lab use only until discontinued starting 12/04/2023, 3 completed [facility] Comment on above: Lab max of 3 days, D aily, for lab use only until discontinued starting 12/04/2023, 3 completed Comprehensive metabo lic 2000 panel - Serum or Plasma Comprehensive metabolic panel Lab Routine Lab max of 3 days, Daily, for lab use only until discontinued starting 12/04/2023, 3 completed [employer] Work Phone: Comment on above: Lab max of 3 days, D aily, for lab use only until discontinued starting 12/04/2023, 3 completed Magnesium [Mass/volu me] in Serum or Plasma Magnesium Lab Routine Lab max of 3 days, Daily, for lab use only until discontinued starting 12/04/2023, 3 completed [facility] Comment on above: Lab max of 3 days, D aily, for lab use only until discontinued starting 12/04/2023, 3 completed Oxygen Therapy - Maintain SpO2: 90% or greater; *CERAMIC TILE MECHANIC Guidelines for O2: Yes; Document: \[email or web address]\epi c\EPIC_Reference\Orders\ Respiratory Care Guidelines\CPG Oxygen 2022.pdf Oxygen Therapy - Maintain SpO2: 90% or greater; *CERAMIC TILE MECHANIC Guidelines for O2: Yes; Document: \[email or web address]\ep ic\EPIC_Reference\Order s\Respiratory Care Guidelines\CPG Oxygen 2022.pdf Respiratory Care Routine As Needed until discontinued starting 12/04/2023 [facility] Work Phone: Comment on above: As Needed until disc ontinued starting 12/04/2023 Payers Date Payer Category Payer Medicare (Managed Care) 1.2. [id number] 2022 Medicare 1959 Private Health Insurance [id number] 1946 Unknown [id number] 2.16.8 40.1.542428.3.579.2.647 1946 Unknown [id number] 2.16.8 40.1.594317.3.579.2.647 1946 Unknown [id number] 2.16.84 0.1.800762.3.579.2.593 1946 Unknown [id number] 2.16.84 0.1.895606.3.579.2.593 1946 Unknown [id number] 2.16. 840.1.876385.3.579.2.196 1946 Unknown [id number] 2.16.8 40.1.478573.3.579.2.1286 1946 Unknown [id number] 2.16.8 40.1.534685.3.579.2.1286 1946 Unknown [id number] 2.16.8 40.1.058942.3.579.2.1286 1946 Unknown [id number] 2.16.8 40.1.875967.3.579.2.1286 1946 Unknown [id number] 2.16.8 40.1.112263.3.579.2.1286 1946 Unknown [id number] 2.16.8 40.1.489243.3.579.2.1286 1946 Unknown [id number] 2.16.8 40.1.382518.3.579.2.1258 1946 Unknown [id number] 2.16.8 40.1.631796.3.579.2.1258 1946 Unknown [id number] 2.16.84 0.1.076407.3.579.2.1258 1946 Unknown [id number] 2.16.84 0.1.058072.3.579.2.1258 1946 Unknown [id number] 2.16.84 0.1.737236.3.579.2.1258 1946 Unknown [id number] 2.16.84 0.1.400482.3.579.2.1258 1946 Unknown [id number] 2.16.84 0.1.539289.3.579.2.1258 1946 Unknown [id number] 2.16.84 0.1.914643.3.579.2.1258 1946 Unknown [id number] 2.16.84 0.1.661305.3.579.2.1258 1946 Unknown [id number] 2.16.84 0.1.927678.3.579.2.1258 1945 Unknown [id number] 2.16.84 0.1.963741.3.579.2.1258 1945 Unknown [id number] 2.16.84 0.1.309569.3.579.2.1258 1945 Unknown [id number] 2.16.84 0.1.616264.3.579.2.1258 1945 Unknown [id number] 2.16.84 0.1.618923.3.579.2.1258 1945 Unknown [id number] 2.16.84 0.1.834965.3.579.2.1258 1945 Unknown [id number] 2.16.84 0.1.835976.3.579.2.1259 1945 Unknown [id number] 2.16.84 0.1.556923.3.579.2.9 1945 Unknown [id number] 2.16.84 0.1.811729.3.579.2.1259 1945 Unknown [id number] 2.16.84 0.1.909551.3.579.2.9 1945 Unknown [id number] 2.16.84 0.1.666605.3.579.2.1259 1945 Unknown [id number] 2.16.84 0.1.734255.3.579.2.9 1945 Unknown [id number] 2.16.84 0.1.224301.3.579.2.9 1945 Unknown [id number] 2.16.84 0.1.236607.3.579.2.9 1945 Unknown [id number] 2.16.8 40.1.832973.3.579.2.727 1945 Unknown [id number] 2.16.8 40.1.629881.3.579.2.727 Unknown Social History Date Type Detail Facility Start: 07-09-2023 End: 11-07-2023 Tobacco smoking status LAIS Never smoked tobacco [facility] Start: 07-09-2023 End: 11-07-2023 Tobacco use and exposure Smokeless tobacco non-user [facility] Start: 12-17-2023 End: 11-25-2024 Alcoholic beverage intake Current drinker of alcohol (finding) [facility] Start: 12-17-2023 End: 11-25-2024 History of Social function [facility] Start: 12-17-2023 End: 11-25-2024 Tobacco use panel [facility] [place] Start: 1945 Sex assigned at Not on file [facility] Start: 11-07-2023 Alcohol Comment occasional [facility] [place] Has the Reflex, or VYou threatened to shut off services in your home in past 12Mo No [facility] In the past 12 month s, has lack of transportation kept you from medical appointments or from getting medications? No [facility] Medical Equipment Procedure Code Equipment Code Equipment Origin al Text Equipment Identifier Dates Cement Bn Bio 40 gm Rpl [id number] - Sna - [id number] Start: 12-04-2023 Component Fem 8 Std Kn Rt Crcte Rtn Cmnt Persona Cocr - Sna - [id number] Start: 12-04-2023 Component Ptlr 3 5mm Persona Alply Kn Strl Lf - Sna - [id number] Start: 12-04-2023 Surface Artc 16m m Persona Mdl Cngr 8-11 Ef Kn Rt Vivacit-E - Sna - [id number] Start: 12-04-2023 Baseplate Tib 5d F Kn Rt Cmnt Stm Persona Tiv Strl - Sna - [id number] Start: 12-04-2023 Goals Date Patient Goal Desired Activity /State Personal health goal Comment on above: Formatting of this n ote might be different from the original. Evaluation of progress towards goal: awaiting PT/OT evaluation. Daughter at bedside and plans to stay with patient until Saturday. Updated goal: DC to home tomorrow with [facility] and [facility]. SABINO Jo, 12/05/2023, 4:28 PM Clinical Notes 11-07-2023 to 01-27-2025 Mely Paige NP - 11/25/2024 1:00 PM Shira Paige NP - 05/27/2024 2:45 PM Ekta Bryant, DO - 02/25/2024 11:00 AM Wilfrid Sterling PT - 02/18/2024 11:00 AM EDTPatient Instructions Note Date & Type Note Facility 01-27-2025 Note Cardiovascular Medic [facility] SUBJECTIVE Chief Complaint Patient presents with Pre-op Exam Had pre-op testing yesterday- EKG, labs, and CXR Coronary Artery Disease Hypertension Hyperlipidemia Simvastatin was switched to rosuvastatin at last apt in Apr [address] Espitia. Previous TN Sonia Stauffer is a 79 y.o. male here for follow-up. PMHx: CAD, hx TN, HTN, HLD HPI 01/27/25 He has overall been doing well. He notes his typical chest pains that he has had since he was young, occurs at rest, sx's lasts seconds then resolve. He has VO with heavier exertion - this is stable/unchanged. He is able to walk 2 blocks without having SOB or chest pain. He is trying to find ways to stay busy to help cope with his 's passing 2 years ago around this time. Recommended routine exercise to help with cardiac health, weight loss, and mental health. Recommended he consider returning to cardiac rehab here at [facility] - he states he will consider it. Denies c/o orthopnea, PND, LE edema, dizziness/LH, palpitations, syncope. Problem List[1] Medical History[2] Family History[3] Social History[4] Allergies[5] OBJECTIVE Visit Vitals BP 112/72 (BP Location: Right arm, Patient Position: Sitting) Pulse 58 Ht 1.778 m (5' 10 ) Wt (!) 137 kg (303 lb) SpO2 98% BMI 43.48 kg/m??? Smoking Status Never BSA 2.6 m??? Medications: Current Medications[6] Physical Exam Constitutional: Appearance: Normal appearance. He is obese. HENT: Head: Normocephalic and atraumatic. Right Ear: External ear normal. Left Ear: External ear normal. Eyes: Extraocular Movements: Extraocular movements intact. Pupils: Pupils are equal, round, and reactive to light. Neck: Vascular: No carotid bruit. Cardiovascular: Rate and Rhythm: Normal rate and regular rhythm. Pulses: Normal pulses. Heart sounds: Normal heart sounds. Pulmonary: Effort: Pulmonary effort is normal. Breath sounds: Normal breath sounds. Abdominal: General: Bowel sounds are normal. Palpations: Abdomen is soft. Musculoskeletal: General: Normal range of motion. Cervical back: Neck supple. Right lower leg: No edema. Left lower leg: No edema. Skin: General: Skin is warm and dry. Neurological: General: No focal deficit present. Mental Status: He is alert and oriented to person, place, and time. Psychiatric: Mood and Affect: Mood normal. Behavior: Behavior normal. Thought Content: Thought content normal. Judgment: Judgment normal. Labs: No results found for: EXTCMP , BMPR1A , CBCDIF , BNP , LASAP , RED No visits with results within 6 Month(s) from this visit. Latest known visit with results is: Admission on 09/27/2023, Discharged on 09/28/2023 Component Date Value Ventricular Rate 09/27/2023 77 Atrial Rate 09/27/2023 77 IA Interval 09/27/2023 182 QRS DURATION 09/27/2023 94 QT Interval 09/27/2023 384 QTC CALCULATION(BAZETT) 09/27/2023 434 P Castaner 09/27/2023 64 R-Castaner 09/27/2023 -39 T Wave Castaner 09/27/2023 21 Ventricular Rate 09/27/2023 62 Atrial Rate 09/27/2023 62 IA Interval 09/27/2023 186 QRS DURATION 09/27/2023 104 QT Interval 09/27/2023 428 QTC CALCULATION(BAZETT) 09/27/2023 434 P Castaner 09/27/2023 44 R-Castaner 09/27/2023 -41 T Wave Castaner 09/27/2023 18 Sodium 09/28/2023 134 (L) Potassium 09/28/2023 4.0 Chloride 09/28/2023 102 CO2 09/28/2023 25 Anion Gap 09/28/2023 11 BUN 09/28/2023 13 Creatinine 09/28/2023 0.75 BUN/Creatinine Ratio 09/28/2023 17.3 Glucose 09/28/2023 85 Calcium 09/28/2023 8.8 AST 09/28/2023 18 ALT (SGPT) 09/28/2023 19 Alkaline Phosphatase 09/28/2023 31 (L) Total Protein 09/28/2023 6.6 Albumin 09/28/2023 4.4 Total Bilirubin 09/28/2023 2.1 (H) eGFR 09/28/2023 92.9 Auto WBC 09/28/2023 7.29 RBC 09/28/2023 5.04 Hemoglobin 09/28/2023 16.0 Hematocrit 09/28/2023 46.5 MCV 09/28/2023 92.3 MCH 09/28/2023 31.7 MCHC 09/28/2023 34.4 RDW 09/28/2023 12.4 Neutrophils % 09/28/2023 67.5 Lymphocytes % 09/28/2023 19.6 (L) Monocytes % 09/28/2023 10.8 Eosinophils % 09/28/2023 1.4 Basophils % 09/28/2023 0.3 Neutrophils Absolute 09/28/2023 4.92 Lymphocytes Absolute 09/28/2023 1.43 Monocytes Absolute 09/28/2023 0.79 Eosinophils Absolute 09/28/2023 0.10 Basophils Absolute 09/28/2023 0.02 Platelets 09/28/2023 278 nRBC % 09/28/2023 0.0 Immature Granulocytes % 09/28/2023 0.4 Immature Granulocytes Ab* 09/28/2023 0.03 Hemoglobin A1C 09/28/2023 4.7 Estimated Average Glucose 09/28/2023 88 Lipids 05/06/24 Chol 122, trig 96, HDL 43, LDL 60 08/03/24 Hgb 15.8, wbc 4.7, plt 221 Cr 1.32, BUN 17, K 3.9, Na 127, eGFR 52, AST 51, aLT 50 NTproBNP 524 01/26/2025 Hgb 15.7, WBC 5.5, plt 231 Cr 0.92, BUN 13, K 3.2, Na 142, eGFR >60 Testing/Procedures: Physician: Moraima Espitia, Cardiovascular Laboratory Report FINAL IMPRESSIONS: 1. Severe stenosis of the left anterior descending coronary artery, successfully treated by ba (more content not included)... [facility] 01-20-2025 Note Patient Education Urology Circumcision Information [...] also be done in non-medical settings for faith or cultural reasons. Who should be circumcised? The decision to leave the foreskin on or to have it removed is a personal one. It is often based on faith, social, or cultural beliefs. Circumcision is most [...] functions. Where to find more information ??? [employer] ([employer]), Male [...] provider. Document Revised: 05/07/2022 Document Reviewed: 05/07/2022 [place] Patient Education ? 2023 [employer] Secure. Balanitis Balanitis is swelling and irritation of [...] such as cand (more content not included)... [facility] 11-25-2024 History of Present illness Narrative Images from the original note were not included. HISTORY OF PRESENT ILLNESS: EST EZE Hernandeze is an 79 y.o. @ male. (EST [...] Stable RT total knee replacement. Mely Paige CERTIFIED FINANCIAL PLANNER-FRETTED INSTRUMENTS INSPECTOR Procedures Orders Placed This Encounter Procedures XR [...] requiring urgent evaluation. documented in this encounter [facility] 05-27-2024 History of Present illness Narrative Images from the original note were not included. Chief Complaint Patient presents with Right Knee - Follow-up HISTORY OF PRESENT ILLNESS: Sonia Stauffer is an 78 y.o. @ male. (EST PT) S/P RT TKA 12/04/23 (5 MTHS 3 WKS)- [facility]ENN[facility]. XRAY TODAY EPIC 05/27/24 XRAY EPIC 01/14/24 [...] Stable RT total knee replacement. Mely Paige APRN-FRETTED INSTRUMENTS INSPECTOR ASSESSMENT: ICD-10-CM 1. Status post right knee [...] develop for requiring urgent evaluation. Mely Paige APRN-FRETTED INSTRUMENTS INSPECTOR documented in this encounter [facility] 05-06-2024 Note [facility] Cardiology Clinic Note Chief Complaint: Patient here [...] assessed by instantaneous wave-free ratio (iFR). 4. [id number] in-stent restenosis of the mid left anterior [...] 5. Follow up with me in the [facility] in the next 2 to 4 weeks. 6. Follow up with Dr. Franco as scheduled. PROCEDURES: Ultrasound-guided access to the right internal jugular vein, right heart catheterization, ultrasound-guided access to the left radial artery, bilateral selective coronary angiography, percutaneous balloon angioplasty, and Synergy drug-eluting stent placement in the left anterior descending coronary artery, percutaneous balloon angioplasty, and drug-eluting (more content not included)... [facility] 02-25-2024 History of Present illness Narrative [...] Medical History: Diagnosis Date Coronary artery disease ([facility]/HCC) Diabetes mellitus ([facility]/HCC) Gilbert's syndrome Gout Hyperlipidemia ([facility]/HCC) Hypertension ([facility]/HCC) TN (myocardial infarction) ([facility]) CHRISTIANO (obstructive sleep apnea) Phlebitis ALLERGIES: Allergies [...] in this encounter [facility] 02-13-2024 History of Present [...] by next Saturday. documented in this encounter [facility] 02-11-2024 History of Present [...] by next Saturday. documented [facility] [...] in this encounter [facility] 01-23-2024 History of Present [...] in this encounter [facility] 01-16-2024 History of Present [...] taps next session. documented in this encounter [facility] 01-14-2024 History of Present [...] Gilbert's syndrome Gout Hyperlipidemia (CMS/HCC) Hypertension (CMS/HCC) TN (myocardial infarction) (CMS/HCC) CHRISTIANO (obstructive sleep apnea) [...] in this encounter [facility] 01-09-2024 History of Present [...] in the R knee. Pt needing single SHIRT FOLDING MACHINE OPERATOR when doing step ups. Still walking with the cane due to weakness in the knee. Continue to progress as able per PT POC. documented in this encounter [facility] 12-06-2023 History of Present illness Narrative Mellisa Fernando HEALTHCARE ASSOCIATE will come to patient room and attempt US Guided PIV for CT procedure. Second attempt as follows for US Guidance PIV, this nurse telephoned measurement and sensing technician Mineralogy Professor, FROYLAN, left message. PIV access attempted by this nurse X2, unsuccessful. Second RN attempted PIV, Unsuccessful. Patient in need for PIV for CT as ordered. Telephoned ER for US guidance PIV, ER verbalized no one is available to assist at this time, and connected this nurse to measurement and sensing technician Mineralogy Professor, FROYLAN, left message. Waiting for response. Orthopedic [...] found for the last 168 hours. MELY PAIGE APRN-DEE Virgen 12/05/23 1246 documented in this encounter [facility] [place] 12-06-2023 Hospital course Narrative Orthopaedic Discharge Summary Patient ID: Sonia Stauffer [id number] 78 y.o. 1945 Admit date: 12/04/2023 Discharge [...] Studies: Daily hemoglobin and hematocrit Hospital Course:See [facility] inpatient notes for specifics Patient was admitted [...] APRN-CNP 12/06/23 1225 documented in this encounter [facility] 12-06-2023 Progress note Formatting of blaise his note is different from the original. [...] belt Weight Bearing Status: WBAT R LE Telemetry/Knurling Machine Operator: No Other: S/P R TKA Pain Assessment [...] knee Active Problems: Hypertension Hyperlipidemia Hyponatremia T [facility] [place] 12-06-2023 Miscellaneous Notes Physical Therapy Treatment Discharge [...] belt Weight Bearing Status: WBAT R LE Telemetry/Knurling Machine Operator: No Other: S/P R TKA Pain Assessment [...] None Discharge Plan: DC to home with [facility]. RN to hard fax CRF. Services Requested: Services Requested Discharge Disposition: Home with home health services Facility/Service Name: [facility] Facility/Service Fax number: [phone] Facility/Service Phone Number: [phone] Does the patient need discharge transportation arranged?: No (Daughter to take patient home.) Patient choice offered: Yes List Provided: Yes [facility] List Provided: Home Care, Long Term Facility Initial DC Assessment Completed: Yes DC Planning Complete Discharge Milestones: Yes Patient Goals: Patient/Caregiver Goals Patient/Caregiver Goals: Home with Home Care Goals: Goals home with HHC and [facility] SNF (pt-stated) Evaluation of progress towards goal: awaiting PT/OT evaluation. Daughter at bedside and plans to stay with patient until Saturday. Updated goal: DC to home tomorrow with [facility] therapy and [facility]. SABINO Jo, 12/05/2023, 4:28 PM Physical Therapy [...] belt Weight Bearing Status: WBAT R LE Telemetry/Knurling Machine Operator: No Other: S/P R TKA Pain Assessment [...] Outcomes Date/Time User Outcome 12/06/23 1124 Chelita rGay, PT Progressing 12/05/23 1356 Chelita Gray PT [...] 12/06/23 1124 Chelita Gray, PT Completed 12/05/23 135Bam Gray PT Progressing Goal note from Hospital [...] Description: INTERVENTIONS: 1. Encourage patient or legal sales donor recruitment representative to report early pain and ask [...] per policy 9. Teach patient or legal sales donor recruitment representative interventions for comforting Outcome: Progressing Note: [...] at the bedside 7. Instruct patient/ patient sales donor recruitment representative about use of safety devices 8. Include patient/ patient sales donor recruitment representative in decisions related to safety Outcome: Progressing Note: Evaluation of progress towards goal: Patient will remain safe and free from injury during hospitalization. Problem: Moderate - High Risk Fall Score Description: Pablo Fall Score of =/> 25 or indicated by [facility] Assessment Goal: Patient should be free from fall Description: Interventions: 1. [place] to environment 2. Hourly rounds addressing the [...] non-skid footwear 11. Teach patient and patient sales donor recruitment representative to maintain environment for safety and [...] (cane, walker) within reach 19. Request patient sales donor recruitment representative bring adaptive equipment/mobility aids from home or obtain and provide as needed 20. Consult pharmacy regarding effects of med's affecting mobility, cognition, and alternatives 21. Obtain physician order for PT if risk factors associated with mobility are present 22. Obtain physician order for OT as appropriate 23. Utilize diversional activities 24. Educate patient and patient sales donor recruitment representative how to maintain a safe environment during visitation times (notify nurse prior to leaving bedside) 25. Consider appropriateness of medical or non-medical coding auditor 26. Set up voiding schedule as appropriate (every 2 hours) Outcome: Progressing Note: Evaluation of progress towards goal: Patient will remain free from falls. Problem: Pain Goal: Patient goal is pain score less than 4, able to rest, and participant in treatment plan as appropriate Description: INTERVENTIONS: 1. Encourage patient or legal sales donor recruitment representative to report early pain and ask [...] per policy 9. Teach patient or legal sales donor recruitment representative interventions for comforting Outcome: Progressing Note: [...] Post Discharge Therapy Recommendations: Home Physical Therapy Project Development Leader Support for-: Mobility Deficits, ADL Deficits 6 [...] belt Weight Bearing Status: WBAT R LE Telemetry/Knurling Machine Operator: Yes Oxygen Used: room air Other: S/P [...] Disciplines: PT Outcomes Date/Time User Outcome 12/05/23 135 Chelita Gray PT Progressing Goal note from [...] Hyponatremia DISCHARGE PLANNING NOTE Referral sent to [address] (P# ; F# ); [facility] (P# [phone] ; F# [phone]), [facility] in [place], [place] (P# ; F# ) and [facility] ([place]- P# ; F# ) ([place], [place] P# ; F#) Images from the original note were not included. DISCHARGE PLANNING NOTE Informed pt will not DC today, likely tomorrow. Spoke to pt and dtr. Yanelis at bedside regarding DC plan and discussed per PT, Chelita he does not meet snf criteria, They agree to home care and provided 3 choices: [id number] (cannot accept) [facility] (can accept but cannot use with [facility] due to no contract) [facility].(Has contract with [facility] and can accept pt) [...] Hermila with [facility] who informed that [facility] would have to be used for home care to provide the RN and aide services in order for [facility] to provide the home therapy. They have a contract with them and cannot use [id number] or [facility]. SABINO Jo, 12/05/2023, 4:22 PM Services Requested: Services Requested Discharge Disposition: Home with home health services Facility/Service Name: [facility] Facility/Service Fax number: [phone] Facility/Service Phone Number: [phone] Does the patient need discharge transportation arranged?: No (Daughter to take patient home.) Patient choice offered: Yes List Provided: Yes [facility] List Provided: Home Care, Long Term Facility Initial DC Assessment Completed: Yes DC [...] tomorrow with [facility] and [facility]. SABINO Jo, 12/05/2023, 4:28 PM Problem: Pain Goal: Patient goal is pain score less than 4, able to rest, and participant in treatment plan as appropriate Description: INTERVENTIONS: 1. Encourage patient or legal sales donor recruitment representative to report early pain and ask [...] per policy 9. Teach patient or legal sales donor recruitment representative interventions for comforting Outcome: Progressing Note: [...] at the bedside 7. Instruct patient/ patient sales donor recruitment representative about use of safety devices 8. Include patient/ patient sales donor recruitment representative in decisions related to safety Outcome: [...] hygiene technique 7. Identify and instruct patient/patient sales donor recruitment representative in use of appropriate isolation precautions for identified infection/symptoms 8. Provide and discuss with patient/patient sales donor recruitment representative on educational MDRO sheet 9. Encourage and monitor nutritional status daily and consult change agent if indicated 10. Implement neutropenic guidelines as needed 11. Review exposure to history of communicable disease and recent travel history on admission 12. Encourage annual influenza vaccine 13. Encourage pneumonia vaccine Outcome: Progressing Note: Evaluation of progress towards goal: Continue to assess for s/s of infection and address accordingly Problem: Knowledge Deficit Goal: Patient/patient sales donor recruitment representative demonstrates understanding of disease process, treatment [...] Score of =/> 25 or indicated by [facility] Assessment Goal: Patient should be free from fall Description: Interventions: 1. [place] to environment 2. Hourly rounds addressing the [...] non-skid footwear 11. Teach patient and patient sales donor recruitment representative to maintain environment for safety and [...] (cane, walker) within reach 19. Request patient sales donor recruitment representative bring adaptive equipment/mobility aids from home or obtain and provide as needed 20. Consult pharmacy regarding effects of med's affecting mobility, cognition, and alternatives 21. Obtain physician order for PT if risk factors associated with mobility are present 22. Obtain physician order for OT as appropriate 23. Utilize diversional activities 24. Educate patient and patient sales donor recruitment representative how to maintain a safe environment during visitation times (notify nurse prior to leaving bedside) 25. Consider appropriateness of medical or non-medical coding auditor 26. Set up voiding schedule as appropriate [...] supplement as ordered 13. Collaborate with clinical change agent 14. Include patient/ patient's sales donor recruitment representative in decisions related to nutrition Outcome: [...] clean and dry. Skin protectant as needed. [place] pads in place. Problem: Pain Goal: Patient goal is pain score less than 4, able to rest, and participant in treatment plan as appropriate Description: INTERVENTIONS: 1. Encourage patient or legal sales donor recruitment representative to report early pain and ask [...] per policy 9. Teach patient or legal sales donor recruitment representative interventions for comforting Outcome: Progressing Note: Evaluation of progress towards goal: pain responding to oxycodone and tylenol Images from the original note were not included. DISCHARGE PLANNING NOTE Discharge Planning Assessment Sonia Mariano Eh Admit Status: Observation Meet: Yes Readmission Risk: N/A. Date of Admission: 12/04/2023 GMLOS: Observation < 48 hours Target Discharge Date: 12/06/2023 Discharge Planning Assessment completed at bedside. Track Leader identified self and role to the patient and patient's daughter. Patient is agreeable to the assessment and discussion of a safe discharge plan. 12/04/23 1514 Discharge Disposition Discharge Disposition Home with Self Care (Home with HHC and [facility] SNF) County Information [facility] Patient Information Primary Caregiver Self (Daughter [...] Patient choice offered: Yes List Provided: Yes [facility] List Provided: Home Care, Long Term Facility Initial DC Assessment Completed: Yes Pharmacy: [facility] in [place], [place] PCP: Transportation at Time of Discharge: [...] Recommends: Await assessment Home Health Care and Long Term Facility list was provided to patient with list creation in [facility] and filtered by insurance payor. Awaiting [...] at the bedside 7. Instruct patient/ patient sales donor recruitment representative about use of safety devices 8. Include patient/ patient sales donor recruitment representative in decisions related to safety Outcome: [...] Bryant DO Anesthesia: Anesthesiologist: Monico Ibanez DO SERVER SYSTEMS ADMINISTRATOR: Rula Maya APRN-[facility], Monitored Anesthesia Care, Spinal OR staff: Second Shift Supervisor Primary: Julissa Mcintosh RN Second Shift Supervisor Relief: Arminda Ahumada RN Scrub Person: Tiff Layne CST; ST Edvin Culp Assistant: Lakesha Rowland Estimated blood loss: 150 mL Complications: None Findings: [id number] in all 3 compartments Procedure summary: After [...] with 0 Vicryl then skin clips superficially. [place] were applied. Sterile dressings were applied. documented in this encounter [facility] 12-06-2023 Progress note Formatting of t his note is different from the original. Images from the original note were not included. DISCHARGE PLANNING NOTE Follow-up Discharge Planning Progress Note Per RN during discharge transition rounds, barriers to discharge are: None Discharge Plan: DC to home with [facility]. RN to hard fax CRF. Services Requested: Services Requested Discharge Disposition: Home with home health services Facility/Service Name: [facility] Facility/Service Fax number: [phone] Facility/Service Phone Number: [phone] Does the patient need discharge transportation arranged?: No (Daughter to take patient home.) Patient choice offered: Yes List Provided: Yes [facility] List Provided: Home Care, Long Term Facility Initial DC Assessment Completed: Yes DC Planning Complete Discharge Milestones: Yes Patient Goals: Patient/Caregiver Goals Patient/Caregiver Goals: Home with Home Care Goals: Goals home with HHC and [facility] SNF (pt-stated) Evaluation of progress towards goal: awaiting PT/OT evaluation. Daughter at bedside and plans to stay with patient until Saturday. Updated goal: DC to home tomorrow with [facility] home therapy and [facility]. SABINO Jo, 12/05/2023, 4:28 PM [facility] [facility] 12-06-2023 Progress note Formatting of t [...] belt Weight Bearing Status: WBAT R LE Telemetry/Knurling Machine Operator: No Other: S/P R TKA Pain Assessment [...] Outcome 12/06/23 1124 Chelita Gray PT Progressing 12/05/23 [...] right knee Active Problems: Hypertension Hyperlipidemia Hyponatremia [facility] 12-06-2023 Plan of care note Problem: Pain Goal: Patient goal is pain score less than 4, able to rest, and participant in treatment plan as appropriate Description: INTERVENTIONS: 1. Encourage patient or legal sales donor recruitment representative to report early pain and ask [...] per policy 9. Teach patient or legal sales donor recruitment representative interventions for comforting Outcome: Progressing Note: [...] at the bedside 7. Instruct patient/ patient sales donor recruitment representative about use of safety devices 8. Include patient/ patient sales donor recruitment representative in decisions related to safety Outcome: Progressing Note: Evaluation of progress towards goal: Patient will remain safe and free from injury during hospitalization. Problem: Moderate - High Risk Fall Score Description: Pablo Fall Score of =/> 25 or indicated by [facility] Assessment Goal: Patient should be free from fall Description: Interventions: 1. [place] to environment 2. Hourly rounds addressing the [...] non-skid footwear 11. Teach patient and patient sales donor recruitment representative to maintain environment for safety and [...] (cane, walker) within reach 19. Request patient sales donor recruitment representative bring adaptive equipment/mobility aids from home or obtain and provide as needed 20. Consult pharmacy regarding effects of med's affecting mobility, cognition, and alternatives 21. Obtain physician order for PT if risk factors associated with mobility are present 22. Obtain physician order for OT as appropriate 23. Utilize diversional activities 24. Educate patient and patient sales donor recruitment representative how to maintain a safe environment during visitation times (notify nurse prior to leaving bedside) 25. Consider appropriateness of medical or non-medical coding auditor 26. Set up voiding schedule as appropriate (every 2 hours) Outcome: Progressing Note: Evaluation of progress towards goal: Patient will remain free from falls. [facility] 12-06-2023 Plan of care note Problem: Pain Goal: Patient goal is pain score less than 4, able to rest, and participant in treatment plan as appropriate Description: INTERVENTIONS: 1. Encourage patient or legal sales donor recruitment representative to report early pain and ask [...] per policy 9. Teach patient or legal sales donor recruitment representative interventions for comforting Outcome: Progressing Note: Evaluation of progress towards goal: pain improving with oxy and tylenol, continue comfort measures [facility] [place] 12-05-2023 Progress note Formatting of t his [...] Care Services with any new skin concerns. [facility] [place] 12-05-2023 Progress note Formatting of t his note is different from the original. Physical Therapy Treatment Discharge Recommendations PT Recommendations: Home Home Recommendations: Intermittent caregiver support for: Post Discharge Therapy Recommendations: Home Physical Therapy Project Development Leader Support for-: Mobility Deficits, ADL Deficits 6 [...] belt Weight Bearing Status: WBAT R LE Telemetry/Knurling Machine Operator: Yes Oxygen Used: room air Other: S/P [...] Disciplines: PT Outcomes Date/Time User Outcome 12/05/23 135 Chelita Gray PT Progressing Goal note from [...] Disciplines: PT Outcomes Date/Time User Outcome 12/05/23 135 Chelita Gray PT Progressing Goal note from Hospital Encounter 10/16/2023 by Chelita Gray PT Evaluation of progress towards goal: CGA/SBA Physical Therapy Care Plan (Resolved) There are no resolved problems. Principal Problem: Primary osteoarthritis of right knee Active Problems: Hypertension Hyperlipidemia Hyponatremia [facility] SH[facility] 12-05-2023 Progress note Formatting of t his note might be different from the original. DISCHARGE PLANNING NOTE Referral sent to [address] [facility] [place] (P# ; F# ); [place] (P# [phone] ; F# [phone]), [facility] in [place], [place] (P# ; F# ) and [facility] ([place]- P# ; F# ) ([place], [place] P# ; F#) [facility] 12-05-2023 Progress note Formatting of t his note is different from the original. Images from the original note were not included. DISCHARGE PLANNING NOTE Informed pt will not DC today, likely tomorrow. Spoke to pt and dtrRachid Hilario at bedside regarding DC plan and discussed per PTChelita he does not meet snf criteria, They agree to home care and provided 3 choices: [id number] (cannot accept) [facility] (can accept but cannot use with [facility] due to no contract) [facility].(Has contract with [facility] and can accept pt) [...] Hermila with [facility] who informed that [facility] would have to be used for home care to provide the RN and aide services in order for [facility] to provide the home therapy. They have a contract with them and cannot use [id number] or [facility]. SABINO Jo, 12/05/2023, 4:22 PM Services Requested: Services Requested Discharge Disposition: Home with home health services Facility/Service Name: [facility] Facility/Service Fax number: [phone] Facility/Service Phone Number: [phone] Does the patient need discharge transportation arranged?: No (Daughter to take patient home.) Patient choice offered: Yes List Provided: Yes [facility] List Provided: Home Care, Long Term Facility Initial DC Assessment Completed: Yes DC [...] tomorrow with [facility] and [facility]. SABINO Jo, 12/05/2023, 4:28 PM [facility] 12-05-2023 Consult note Associated Order (s): IP CONSULT TO HOSPITALIST [facility] INTERNAL MEDICINE [facility] Consultation Patient: Sonia Stauffer Date of [...] be hyponatremic. Occasional PVCs were noted on cardiac sonographer and hospitalist group were placed on for [...] disease, Gilbert's syndrome, Hyperlipidemia, Hypertension, Myocardial infarction ([facility]) (05/25/2008), and Sleep apnea. Past Surgical History: [...] type, unspecified whether angina present, unspecified whether quechan or transplanted heart; Hypertension, unspecified type; History [...] Replace electrolytes per protocol. Occasional PVCs: Continue cardiac sonographer while admitted. Leukocytosis: Chest x-ray and urinalysis [...] to discharge. DEE Browning, 12/05/2023 8:39 AM Skinny Owens [facility] Internal Medicine 7AM-7PM (all facilities): EpicChat or page through MindOps. 7PM-7AM ([facility], [facility] Psychiatry and Inpatient Rehab): EpicChat or page, [phone]. 7PM-7AM ([facility], [facility] and [facility] Rehab): EpicChat or page through MindOps. This note is dictated with the use of M*Modal. Please note that this dictation was completed with computer voice recognition software. Quite often unanticipated grammatical, syntax, homophones, and other interpretive errors are inadvertently transcribed by the computer software. Please disregard these errors. Please excuse any errors that have escaped final proofreading. Dg Ge APRN-DANE 12/05/23 1042 Physician Attestation I, Misa Sanchez [...] I agree with the plan as noted. [facility] Work Phone: 12-05-2023 Consult note Associated Order (s): IP CONSULT TO HOSPITALIST [facility] INTERNAL MEDICINE Hospital Medicine Consultation Patient: Sonia Stauffer Date of : 1945 Room: PCP: No primary care provider on file. Admission date: 12/04/2023 8:36 AM Encounter date: 12/05/23 SUBJECTIVE Reason for Consult: Medical management. Referring Physician/Team: Dr Bryant, Orthopedic Surgeon Sonia Mariano Mannycaiodavey is a 78 y.o. male who presents with primary osteoarthritis of right knee status post total right knee replacement on 12/04/2023. Patient does have a history of hypertension, hyperlipidemia, and was found to be hyponatremic. Occasional PVCs were noted on cardiac sonographer and hospitalist group were placed on for [...] disease, Gilbert's syndrome, Hyperlipidemia, Hypertension, Myocardial infarction ([facility]) (05/25/2008), and Sleep apnea. Past Surgical History: [...] type, unspecified whether angina present, unspecified whether quechan or transplanted heart; Hypertension, unspecified type; History [...] Replace electrolytes per protocol. Occasional PVCs: Continue cardiac sonographer while admitted. Leukocytosis: Chest x-ray and urinalysis ordered to rule out infectious process. Antibiotics given in OR. Continue to monitor. Chart and old records reviewed. DVT prophylaxis: EPC's and aspirin 325 mg daily. GI prophylaxis. PT/OT to evaluate and treat. DC planning: We will follow while inpatient. Recommend repeating sodium later this evening and tomorrow a.m. prior to discharge. Dg Ge, CERTIFIED FINANCIAL PLANNER-FRETTED INSTRUMENTS INSPECTOR, 12/05/2023 8:39 AM [facility] Internal Medicine 7AM-7PM (all facilities): Hoolai GamesChat or page through MindOps. 7PM-7AM ([facility], [facility] Psychiatry and Inpatient Rehab): Hoolai GamesConniet or page, [phone]. 7PM-7AM ([facility], [place], [place] and [facility] Rehab): EpicChat or page through MindOps. This note is dictated with the use of M*Modal. Please note that this dictation was completed with computer voice recognition software. Quite often unanticipated grammatical, syntax, homophones, and other interpretive errors are inadvertently transcribed by the computer software. Please disregard these errors. Please excuse any errors that have escaped final proofreading. Dg Ge, CERTIFIED FINANCIAL PLANNER-[facility] 12/05/23 1042 Physician Attestation I, [...] plan as noted. documented in this encounter [facility] 12-05-2023 Plan of care note Problem: Pain Goal: Patient goal is pain score less than 4, able to rest, and participant in treatment plan as appropriate Description: INTERVENTIONS: 1. Encourage patient or legal sales donor recruitment representative to report early pain and ask [...] per policy 9. Teach patient or legal sales donor recruitment representative interventions for comforting Outcome: Progressing Note: [...] at the bedside 7. Instruct patient/ patient sales donor recruitment representative about use of safety devices 8. Include patient/ patient sales donor recruitment representative in decisions related to safety Outcome: [...] hygiene technique 7. Identify and instruct patient/patient sales donor recruitment representative in use of appropriate isolation precautions for identified infection/symptoms 8. Provide and discuss with patient/patient sales donor recruitment representative on educational MDRO sheet 9. Encourage and monitor nutritional status daily and consult change agent if indicated 10. Implement neutropenic guidelines as needed 11. Review exposure to history of communicable disease and recent travel history on admission 12. Encourage annual influenza vaccine 13. Encourage pneumonia vaccine Outcome: Progressing Note: Evaluation of progress towards goal: Continue to assess for s/s of infection and address accordingly Problem: Knowledge Deficit Goal: Patient/patient sales donor recruitment representative demonstrates understanding of disease process, treatment [...] Score of =/> 25 or indicated by [facility] Rehab Assessment Goal: Patient should be free from fall Description: Interventions: 1. [place] to environment 2. Hourly rounds addressing the [...] non-skid footwear 11. Teach patient and patient sales donor recruitment representative to maintain environment for safety and [...] (cane, walker) within reach 19. Request patient sales donor recruitment representative bring adaptive equipment/mobility aids from home or obtain and provide as needed 20. Consult pharmacy regarding effects of med's affecting mobility, cognition, and alternatives 21. Obtain physician order for PT if risk factors associated with mobility are present 22. Obtain physician order for OT as appropriate 23. Utilize diversional activities 24. Educate patient and patient sales donor recruitment representative how to maintain a safe environment during visitation times (notify nurse prior to leaving bedside) 25. Consider appropriateness of medical or non-medical coding auditor 26. Set up voiding schedule as appropriate [...] supplement as ordered 13. Collaborate with clinical change agent 14. Include patient/ patient's sales donor recruitment representative in decisions related to nutrition Outcome: [...] clean and dry. Skin protectant as needed. [place] pads in place. [facility] SHIFT [facility] 12-05-2023 Plan of care note Problem: Pain Goal: Patient goal is pain score less than 4, able to rest, and participant in treatment plan as appropriate Description: INTERVENTIONS: 1. Encourage patient or legal sales donor recruitment representative to report early pain and ask [...] per policy 9. Teach patient or legal sales donor recruitment representative interventions for comforting Outcome: Progressing Note: Evaluation of progress towards goal: pain responding to oxycodone and tylenol [facility] 12-04-2023 Progress note Formatting of t his note is different from the original. Images from the original note were not included. DISCHARGE PLANNING NOTE Discharge Planning Assessment Sonia Stauffer Admit Status: Observation Meet: Yes Readmission Risk: N/A. Date of Admission: 12/04/2023 GMLOS: Observation < 48 hours Target Discharge Date: 12/06/2023 Discharge Planning Assessment completed at bedside. Track Leader identified self and role to the patient and patient's daughter. Patient is agreeable to the assessment and discussion of a safe discharge plan. 12/04/23 1514 Discharge Disposition Discharge Disposition Home with Self Care (Home with HHC and [facility] SNF) County Information [facility] Patient Information Primary Caregiver Self (Daughter [...] Patient choice offered: Yes List Provided: Yes [facility] List Provided: Home Care, Long Term Facility Initial DC Assessment Completed: Yes Pharmacy: [facility] in [place], [place] PCP: Transportation at Time of Discharge: [...] Recommends: Await assessment Home Health Care and Long Term Facility list was provided to patient with list creation in [facility] and filtered by insurance payor. Awaiting [...] - Edwina White RN 12/04/23 3:[facility] PM [facility] 12-04-2023 Plan of care note Problem: [...] at the bedside 7. Instruct patient/ patient sales donor recruitment representative about use of safety devices 8. Include patient/ patient sales donor recruitment representative in decisions related to safety Outcome: [...] goal: Continue to assess for when appropriate. [facility] SHIFT [facility] 12-04-2023 Procedure note Summary: Right total knee Sonia Stauffer Date of : 1945 Date of Surgery: 12/04/2023 Preoperative diagnosis: Primary osteoarthritis right knee Postoperative diagnosis: Same Procedure: Right total knee arthroplasty Surgeon: Dakota Bryant DO Anesthesia: Anesthesiologist: Monico Ibanez DO SERVER SYSTEMS ADMINISTRATOR: Rula Maya APRN-[facility], Monitored Anesthesia Care, Spinal OR staff: Second Shift Supervisor Primary: Julissa Mcintosh RN Second Shift Supervisor Relief: Arminda Ahumada RN Scrub Person: Tiff Layne CST; ST Edvin Culp Assistant: Lakesha Rowland Estimated blood loss: 150 mL Complications: None Findings: Qdkr-[id number] in all 3 compartments Procedure summary: After [...] with 0 Vicryl then skin clips superficially. [place] were applied. Sterile dressings were applied. [facility] [place] 12-04-2023 Attending History and physical note HISTORY AND PHYSICAL INTERVAL NOTE: Sonia Stauffer 1945 [id number] H&P reviewed. The patient was examined and there are no changes to the H&P. Dakota Bryant DO Source Note - Dakota Bryant DO - 11/27/2023 2:08 PM EDT [facility] [place] 12-04-2023 History and physical note HISTORY AND PHYSICAL INTERVAL NOTE: Sonia Stauffer 1945 [id number] H&P reviewed. The patient was examined and there are no changes to the H&P. Dakota Bryant DO Source Note - Dakota Bryant DO - 11/27/2023 2:08 PM EDT documented in this encounter [facility] 11-07-2023 Instructions Kassandra Benton RN - 11/07/2023 [...] in at the main lobby of the [facility]- registration desk is straight ahead as soon as you walk in. Tell them you are here for surgery. 2. If you have a Living Will/Durable Power of Tractor Trailer Operator for Health Care that is not on [...] after you have bathed. 5. NO nail telugu/acrylic on at least one finger. If you are having a hand, wrist or foot surgery then all nail telugu and artificial/acrylic nails must be removed from [...] please call the Preadmission Testing office at [phone], Mon.-Fri. 7 a.m.-3 p.m. Leave a voicemail [...] with your doctor. documented in this encounter [facility] Evaluation note Diagnosis Postoperative pain of right knee- Primary Presence of artificial knee joint, right documented in this encounter [facility]* Diagnosis Status post right knee replacement Primary osteoarthritis of right knee documented in this encounter [facility]* Diagnosis Postoperative pain of right knee- Primary Presence of artificial knee joint, right documented in this encounter [facility]* Diagnosis Postoperative pain of right knee- Primary Presence of artificial knee joint, right documented in this encounter [facility]* Diagnosis Postoperative pain of right knee- Primary Presence of artificial knee joint, right documented in this encounter [facility]* Diagnosis Postoperative pain of right knee- Primary Presence of artificial knee joint, right Primary osteoarthritis of right knee Status post right knee replacement documented in this encounter [facility]* Diagnosis Primary osteoarthritis of right knee Status post right knee replacement documented in this encounter [facility]* Diagnosis Postoperative pain of right knee- Primary Presence of artificial knee joint, right documented in this encounter [facility]* Diagnosis Status post right knee replacement Primary osteoarthritis of right knee documented in this encounter [facility]* Diagnosis Preop examination- Primary Unspecified pre-operative examination Coronary artery disease, unspecified vessel or lesion type, unspecified whether angina present, unspecified whether quechan or transplanted heart Hypertension, unspecified type History of myocardial infarction Preop examination Unspecified pre-operative examination Coronary artery disease, unspecified vessel or lesion type, unspecified whether angina present, unspecified whether quechan or transplanted heart Hypertension, unspecified type History of myocardial infarction documented in this encounter [facility]* Diagnosis Primary osteoarthritis of right knee- Primary Status post total knee replacement, right Hypertension Unspecified essential hypertension Hyperlipidemia Other and unspecified hyperlipidemia Hyponatremia Hyposmolality and/or hyponatremia documented in this encounter [facility]* Diagnosis Primary osteoarthritis of right knee Status post right knee replacement [facility] instructionsNot on filedocumented in this [facility] Summary Purpose Family History No Family History Records FoundNo Family History Records FoundNo Family History Records FoundNo Family History Records FoundNo Family History Records FoundNo Family History Records FoundNo Family History Records Found Advance Directives No Advanced Directives Records Found Date Activated Date Inactivated Comments 12/04/2023 7:33 AM Reason for Referral Specialty Diagnoses / Procedures Referred By Faustinaac t Referred To Contact Diagnoses Status post total knee replacement, right Procedures Discharge medication instruction-no alcohol while taking pain medications Mely Paige, CERTIFIED FINANCIAL PLANNER-FRETTED INSTRUMENTS INSPECTOR [address] [place] [address] Referral ID Status Reason Start Date Expiration Date V isits Requested Visits Authorized [id number] Pending Review 12/06/2023 12/05/2024 1 1 Specialty Diagnoses / Procedures Referred By Contac t Referred To Contact Diagnoses Status post total knee replacement, right Procedures Discharge instruction after anesthesia/sedation Mely Paige, CERTIFIED FINANCIAL PLANNER-FRETTED INSTRUMENTS INSPECTOR [address] [place] [address] Referral ID Status Reason Start Date Expiration Date V isits Requested Visits Authorized [id number] Pending Review 12/06/2023 12/05/2024 1 1 Specialty Diagnoses / Procedures Referred By Contac t Referred To Contact Procedures Follow-up with MD 7-14 days after surgery Mely Paige, CERTIFIED FINANCIAL PLANNER-FRETTED INSTRUMENTS INSPECTOR [address] [place] [address] Referral ID Status Reason Start Date Expiration Date V isits Requested Visits Authorized [id number] Pending Review 12/06/2023 12/05/2024 1 1 Specialty Diagnoses / Procedures Referred By Contac t Referred To Contact Procedures Dressing instructions- keep incision clean and dry Mely Paige, CERTIFIED FINANCIAL PLANNER-[employer]UMENTS INSPECTOR [address] [place] [address] Referral ID Status Reason Start Date Expiration Date V isits Requested Visits Authorized [id number] Pending Review 12/06/2023 12/05/2024 1 1 Specialty Diagnoses / Procedures Referred By Contac t Referred To Contact Procedures Hygiene- may shower Mely Paige, CERTIFIED FINANCIAL PLANNER[employer]UM[employer] INSPECTOR [address] [place] [address] Referral ID Status Reason Start Date Expiration Date V isits Requested Visits Authorized [id number] Pending Review 12/06/2023 12/05/2024 1 1 Specialty Diagnoses / Procedures Referred By Adal welsh Referred To Contact Diagnoses Status post total knee replacement, right Procedures Apply ice to affected area Mely Paige, CERTIFIED FINANCIAL PLANNER[employer] INSPECTOR [address] [place] [address] Referral ID Status Reason Start Date Expiration Date V isits Requested Visits Authorized [id number] Pending Review 12/06/2023 12/05/2024 1 1 Additional Source Comments (unrecognized sect ion and content) No Status Records FoundNo Status Records FoundNo Status Records FoundNo Status Records FoundNo Status Records FoundNo Status Records FoundNo Status Records Found INFORMATION SOURCE (unrecogn ized section and content) DATE CREATED AUTHOR 04/28/2018 [facility] DATE CREATED AUTHOR AUTHOR'S ORGANIZ ATION 07/09/2022 [facility] DATE CREATED AUTHOR AUTHOR'S ORGANIZ ATION 05/03/2023 [facility] DATE CREATED AUTHOR AUTHOR'S ORGANIZ ATION 12/07/2023 [facility] DATE CREATED AUTHOR AUTHOR'S ORGANIZ ATION 11/29/2024 [facility] DATE CREATED AUTHOR AUTHOR'S ORGANIZ ATION 01/22/2025 [facility] DATE CREATED AUTHOR AUTHOR'S ORGANIZ ATION 01/29/2025 [facility] Care Teams (unrecognized sec tion and content) School Admissions Representative Relationship Specialty Start Date End Date Romel rFanco MD [address] [place] [phone] PCP - General Family Medicine 03/18/23 School Admissions Representative Relationship Specialty Start Date End Date Romel Franco MD [address] [place] [phone]- PCP - General Family Medicine 03/18/23 School Admissions Representative Relationship Specialty Start Date End Date Romel Franco MD [address] [place] [facility] [address] PCP - General Family Medicine 03/18/23 School Admissions Representative Relationship Specialty Start Date End Date Romel Franco MD [address] [place] [facility] [place] [address] PCP - General Family Medicine 03/18/23 School Admissions Representative Relationship Specialty Start Date End Date Romel Franco MD [address] [facility], [facility] PCP - General Family Medicine 03/18/23 School Admissions Representative Relationship Specialty Start Date End Date Romel Franco MD [address] [facility], [facility] PCP - General Family Medicine 03/18/23 School Admissions Representative Relationship Specialty Start Date End Date Romel Franco MD [address] [place] [facility] [place] [address] PCP - General Family Medicine 03/18/23 School Admissions Representative Relationship Specialty Start Date End Date Romel Franco MD [address] [facility], [phone] PCP - General Family Medicine 03/18/23 School Admissions Representative Relationship Specialty Start Date End Date Romel Franco MD [address] [place] [facility] [place] [address] PCP - General Family Medicine 03/18/23 School Admissions Representative Relationship Specialty Start Date End Date Romel Franco MD [address] [place] [facility] [place] [address] PCP - General Family Medicine 03/18/23 School Admissions Representative Relationship Specialty Start Date End Date Romel Franco MD [address] [place] [facility] [place] [address] PCP - General Family Medicine 03/18/23 School Admissions Representative Relationship Specialty Start Date End Date Romel Franco MD [address] [place] [facility] [place] [address] PCP - General Family Medicine 03/18/23 School Admissions Representative Relationship Specialty Start Date End Date Romel Franco MD [address] [place] [facility] [place] [address] PCP - General Family Medicine 03/18/23 School Admissions Representative Relationship Specialty Start Date End Date Romel Franco MD [address] [place] [facility] [place] [address] PCP - General Family Medicine 03/18/23 School Admissions Representative Relationship Specialty Start Date End Date Romel Franco MD [address] [place] [facility] [address] PCP - General Family Medicine 03/18/23 School Admissions Representative Relationship Specialty Start Date End Date Romel Franco MD PCP - General Family Medicine 03/18/23 School Admissions Representative Relationship Specialty Start Date End Date Romel Franco MD PCP - General Family Medicine 03/18/23 Reason for Visit (unrecogniz ed section and content) Specialty Diagnoses / Procedures Referred By Contac t Referred To Contact Physical Therapy Diagnoses Presence of right artificial knee joint Procedures IA PHYSICAL THERAPY EVALUATION LOW COMPLEX 20 MINS Dakota Bryant, DO [address] [place] [address] Jona Sterling, PT Referral ID Status Reason Start Date Expiration Date Visits Requested Visits Authorized [id number] Authorized Consult and Treat 01/21/2024 03/03/2024 12 12 Reason Comments Follow-up Specialty Diagnoses / Procedures Referred By Contac t Referred To Contact Physical Therapy Diagnoses Presence of artificial knee joint, right Procedures IA OFFICE/OUTPATIENT NEW HIGH MDM 60 MINUTES Dakota Bryant, DO [address] [place] [address] Jona Sterling, PT Referral ID Status Reason Start Date Expiration Date Visits Requested Visits Authorized [id number] Authorized Specialty Services Required 12/04/2023 06/01/2024 99 99 Specialty Diagnoses / Procedures [facility] Referred To Contact Diagnoses right knee degenerative joint disease Procedures IA TOTAL KNEE ARTHROPLASTY REPLACEMENT TOTAL JOINT KNEE Dakota Bryant, DO [address] [facility] [address] [place] [address] Referral ID Status Reason Start Date Expiration Date Visits Re quested Visits Authorized [id number] 1 1 Scheduled Active and Recently Administ [...] Bell RN) 0000 (Given - Provider: Vidhi Sanchez RN)0600 (Not Given - Provider: Vidhi Sanchez RN [...] prophylaxis 1105 (Given - Provider: Rula Maya APRN-SERVER SYSTEMS ADMINISTRATOR) ceFAZolin (ANCEF) IVPB 2000 mg/50 mL in [...] 354 (New Bag - Provider: Vidhi Sanchez RN)0425 [...] Indication: Surgical prophylaxis 1052 (Given - Provider: Rula Maya APRN-SERVER SYSTEMS ADMINISTRATOR) celecoxib (CeleBREX) capsule 200 mg 200 mg, [...] RN)2054 (Given - Provider: Vidhi Sanchez RN) 828 (Given - Provider: Beverley Otero RN)2100 (Due) [...] Sanchez RN) 08 (Given - Provider: Beverley Otero, [facility])2100 (Due) midazolam (VERSED) injection 2 mg (COMPLETED) 2 mg, intravenous, Once, On Sat12/04/23 at 0900, For 1 dose, Pre-op, Indication: Other, Indication: pre procedure block 0930 (Given - Provider: Pamela Hu RN) rosuvastatin (CRESTOR) tablet 20 mg 20 mg, oral, Nightly, First dose on Sat12/05/23 at 2200, Look-alike/sound-alike medication - verify indication for use. 2100 (Given - Provider: Vidhi Sanchez RN) 2200 [...] Vidhi Sanchez RN)1802 (Restarted - Provider: Vidhi Sanchez, RN)2016 (Paused - Provider: Vidhi Sanchez RN)204 (Restarted - Provider: Vidhi Sanchez RN)211 (Paused [...] at 1448 0141 (Given - Provider: Vidhi Sanchez, RN)0828 (Given - Provider: Beverley Otero, [facility]) bacitracin ointment (CANCELED) As needed, Starting on Sat12/04/23 at 1236, Intra-op 1236 (Given - Provider: Dkaota Bryant, DO - Comment: Given by FA [...] Provider: Carmela Loera, RT - Comment: lot [id number] 08/17/26) magnesium sulfate IVPB 2000 mg/50 mL in iso-osmotic water (40 mg/mL premix) 2,000 mg, intravenous, at 25 mL/hr, Administer over 120 Minutes, As needed, Magnesium level 1.7 to 1.9 mg/dL, or Ionized Magnesium level 0.45 to 0.5 mmol/L., Starting on Sat12/04/23 at 2130, Recheck magnesium level 4 hours after infusion complete. With each magnesium result continue the replacement orders as needed. 2334 (New Bag - Provider: Vidhi Sanchez RN) 0110 (Stop Bag - Provider: Vidhi Sanchez RN)011 [...] (See Alternative - Provider: Vidhi Sanchez RN) 0357 (See Alternative - Provider: Vidhi Sanchez RN)0724 (Given - Provider: Renia June RN)1311 (See Alternative - Provider: Rivas Bell RN)1427 (See Alternative - Provider: Rivas Bell RN)1728 [...] RN)2327 (Given - Provider: Vidhi Sanchez RN) 035 (Given - Provider: Vidhi Sanchez RN)0724 (See Alternative - Provider: Reina June RN)1311 (Given - Provider: Rivas Bell, [facility])1427 (Given - Provider: Rivas Bell, [facility])1728 (See Alternative - Provider: Rivas Bell RN)2055 [...] greater=50 mEq. Do not crush or chew. 2327 (Given - Provider: Vidhi Sanchez RN) potassium [...] after per policy and monitor potassium levels 2327 (See Alternative - Provider: Vidhi Sanchez RN) [...] BE BASED ON THE PRIMARY CLINICAL RECORDS. [facility]. provides no warranty or guarantee of the accuracy or completeness of information in this document.
[2025-02-04] MEDS: CEFAZOLIN SODIUM 2 GM/50 ML D5W PREMIX IV (10:58)
[2025-02-04] MEDS: MINERAL OIL LIGHT STERILE 10 ML VIAL TOPICAL (11:56)
[2025-02-04] MEDS: BACITRACIN OINTMENT 28.4 GM TUBE 1 APPLIC TOPICAL (12:23)
--- NOTE | 2025-02-04 12:36 | P.URON_ITS ---
Urology Surgery Operative Note Operative Note Procedure Date: 02/04/25 Time Out Performed: yes Pre-op Diagnosis: Phimosis and balanoposthitis Post-op Diagnosis: same as pre-op Procedures performed: 1. Circumcision. 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 He failed conservative management. He is desirous for circumcision or dorsal slit. He has signed an informed consent for these procedures after all risks were explained. Detailed description of Procedure: The patient was brought to the operating room and placed on the operating room table in the supine position. SCDs were placed on his lower extremities and turned on and functioning during the entire case. Timeout was done by all parties in the room. General endotracheal anesthesia was then administered. Genitalia were sterilely prepped and draped in the usual fashion. I then marked a line around the external surface of the foreskin over the coronal sulcus. A circumscribing incision was made over this line with a 15 blade scalpel. The foreskin was then retracted over the shaft and a similar line was marked 5 mm proximal to the coronal sulcus on the mucosal surface of the foreskin. A similar circumscribing incision was then made. Sharp dissection was carried out to circumferentially dissect out and transect and then amputate this sleeve of tissue. The foreskin was sent for permanent sections. Small bleeders were coagulated with the needle tip Bovie cautery. I then joined the edges of the foreskin back together with 4-0 Vicryl dipped in mineral oil in a running fashion. We had an excellent repair. Vaseline gauze was placed over the incision and plain gauze was wrapped around this. A Coban was then wrapped around the penis. The anesthetic was then reversed. He was then transferred to a [facility] bed and wheeled to PACU in stable condition.
--- NOTE | 2025-02-04 12:53 | PC.NURSE ---
1253: matteo removed per .
--- NOTE | 2025-02-04 16:07 | PC.NURSE ---
[address] GAMEZ'S THIS PATIENT COULD NOT URINATE. DR GAMEZ WANTS PATIENT TO URINATE BEFORE HE GOES HOME AND TO PLEASE WAIT. THIS BASE FILLER OPERATOR HUNG ANOTHER BAG OF FLUIDS.
== END 2025-02-04 16:09 | disposition home or self-care (01) ==
LOC: SURGOUT 08:47
PROVIDERS: PCP Family Medicine; Visit Provider Urology
PROC: (CPT 54161; principal; 2025-02-04 09:55)
DX: N47.1 Phimosis (principal); N47.6 Balanoposthitis; E66.01 Morbid (severe) obesity due to excess calories; Z68.41 Body mass index [BMI] 40.0-44.9, adult; G47.33 Obstructive sleep apnea (adult) (pediatric); E78.5 Hyperlipidemia, unspecified; I10 Essential (primary) hypertension; I25.10 Atherosclerotic heart disease of native coronary artery without angina pectoris; I25.2 Old myocardial infarction; Z95.5 Presence of coronary angioplasty implant and graft; K21.9 Gastro-esophageal reflux disease without esophagitis; R73.03 Prediabetes; M19.90 Unspecified osteoarthritis, unspecified site; E80.4 Gilbert syndrome
CPT/HCPCS: 54161; 36415; 82948; J0690; J1100; J1885; J2250; J2405; J2704; J3010